=== PATIENT | female | born 1995 | race Two or more races ===

== ENCOUNTER 2023-02-21 14:00 | Emergency (ER) | payer OTHER, SELFPAY ==
[2023-02-21 14:16] VITALS: BP 113/77; BP 87/53; PULSE 66; RESP 18; TEMP 36.8; O2SAT 99; BMI 19.6
[2023-02-21] MEDS: Naloxone HCl Nasal 4 MG SPRAY NOSTRILALT ×2 (14:23→16:30)
[2023-02-21 15:15] LABS: MANUAL DIFF FLAG NO
[2023-02-21 15:17] LABS: Basophils Percent Auto 0.5 % (0-2); Eosinophils Absolute Auto 0.1 X10*3/uL (0.0-0.4); Hematocrit 33.6 % (37.0-47.0); Hemoglobin 11.1 g/dl (12.0-16.0); Imm Gran Abs Auto 0.02 X10*3/uL (0.00-0.03); Imm Gran Pct Auto 0.4 % (0.0-0.4); Lymphocytes Absolute Auto 1.7 X10*3/uL (1.2-4.9); Lymphocytes Percent Auto 30.5 % (20-40); Mean Corpuscular Hemoglobin 29.6 pg (27.0-33.0); Mean Corpuscular Volume 89.6 fL (80.0-98.0); Mean Platelet Volume 8.7 fL (9.4-12.3); Monocytes Absolute Auto 0.4 X10*3/uL (0.1-1.2); Monocytes Percent Auto 6.2 % (2-11); Neutrophils Absolute Auto 3.4 x10*3/uL (2.0-8.3); Neutrophils Percent Auto 60.4 % (45-73); Platelet Count 184 X10*3/uL (160-400); Red Blood Count 3.75 X10*6/uL (4.20-5.50); Red Cell Distribution Width 17.4 % (11.0-16.0); White Blood Count 5.6 X10*3/uL (4.8-10.8)
--- NOTE | 2023-02-21 15:25 | ED_ITS ---
HPI - General Adult General Chief complaint: ETOH/Substance Use Stated complaint: Lethargy, weakness, poor PO intake per EMS Time Seen by Provider: 02/21/23 14:05 Source: patient and EMS Mode of arrival: EMS History of Present Illness HPI narrative: 27-year-old female brought in by ambulance from [facility] for evaluation of hypotension, lethargy, and weakness. Patient was admitted to [facility] yesterday for alcohol detox, last drink 02/18. Patient denies any suicidal/homicidal ideation at this time. Patient does endorse that she drinks alcohol but is very drowsy. Related Data Allergies Allergy/AdvReac Type Severity Reaction Status Date / Time SEAFOOD Allergy Unknown UNK Uncoded 08/17/20 19:25 Review of Systems Review of Systems: Pertinent positives and negatives as stated in HPI PMF Past Medical History Source: nursing notes reviewed Social History Social History Alcohol intake: current Smoked in Last 30 Days: No Use of substances other than those prescribed or required for medical reasons: Unknown Advance Directives: No Advance Directives Information Provided: No Patient : No Physical Exam ED Vital Signs: Vital Signs - 24 hr 02/21/23 14:16 02/21/23 16:27 Temperature 98.3 F Pulse Rate 66 74 Respiratory Rate 18 18 Blood Pressure 87/53 L 100/67 Pulse Oximetry 99 99 Oxygen Delivery Method Room Air BMI result Body Mass Index 19.6 VITAL SIGNS: Reviewed. GENERAL: Well developed, well nourished, in no acute distress. HEAD: Normocephalic/atraumatic EYES: PERRLA, EOMI, of note, pupils are pinpoint EARS: Ext canals without abnormality, TMs non-bulging and non-erythematous NOSE: Nares patent bilateral OROPHARYNX: no oral lesions noted, posterior pharynx clear NECK: Supple, no adenopathy LUNGS: Normal breath sounds. No adventitious sounds or accessory muscle use. SpO2<99> CARDIOVASCULAR: Regular rate and rhythm without noted murmurs ABDOMEN: Soft, non-tender, non-distended with bowel sounds. MUSCULOSKELETAL: No tenderness, deformities, or effusions noted on gross inspection. EXTREMITIES: No cyanosis, clubbing or edema. SKIN: Inspection of the skin reveals no rashes NEUROLOGIC: Groggy and oriented x 3. Strength and sensation to light touch were grossly intact x 4. Medications Administered Discontinued Medications Generic Name Dose Route Start Last Admin Trade Name Fidencio PRN Reason Stop Dose Admin Sodium Chloride 1,000 mls @ 999 mls/hr 02/21/23 14:30 02/21/23 16:27 Ns IV 02/21/23 15:30 Infused .Q1H1M KATHY Infusion Sodium Chloride 1,000 mls @ 999 mls/hr 02/21/23 16:30 02/21/23 17:31 Ns IV 02/21/23 17:30 Infused .Q1H1M KATHY Infusion Naloxone HCl 4 mg 02/21/23 14:20 02/21/23 14:23 Naloxone Hcl Nasal 4 Mg Max NOSTRILALT 02/21/23 14:21 4 mg ONCE ONE Administration Naloxone HCl 4 mg 02/21/23 16:30 02/21/23 16:30 Naloxone Hcl Nasal 4 Mg Max NOSTRILALT 02/21/23 16:31 4 mg ONCE ONE Administration Medical Decision Making Medical Decision Making MDM Narrative: 27-year-old female and suspicion for heroin use, given 4 mg of Narcan intranasally with good response as patient became more alert. Basic labs to include acetaminophen and salicylate as well as toxicology have been ordered. Patient was hydrated with 2 L of IV fluids, labs, UA/U preg/toxicology have also been ordered. I have reviewed all investigations and it appears that patient has most likely been overmedicated on phenobarbital and/or benzodiazepine containing medication for her alcohol detox at [facility]. There is no evidence of acute infection, anemia, electrolyte abnormalities. The urinalysis was reviewed and felt to be contaminated. Patient will be observed here in the emergency room until she is more awake. Signed out to MAHAMED Vila Patient placed in physician observation because the patient needed more time for recovering from alcohol detox medications. At the time observation was started the patient's vital signs were stable, patient is alert and oriented, neuro: Nonfocal, CV RRR, lungs clear Differential Diagnosis Please see the discussion above Lab Data Please see the discussion above 02/21/23 15:09 02/21/23 15:09 Labs: Lab Results 02/21/23 02/21/23 02/21/23 Range/Units 15:09 15:09 15:09 WBC 5.6 (4.8-10.8) X10*3/uL RBC 3.75 L (4.20-5.50) X10*6/uL Hgb 11.1 L (12.0-16.0) g/dl Hct 33.6 L (37.0-47.0) % MCV 89.6 (80.0-98.0) fL MCH 29.6 (27.0-33.0) pg MCHC 33.0 (31.0-35.0) g/dl RDW 17.4 H (11.0-16.0) % Plt Count 184 (160-400) X10*3/uL MPV 8.7 L (9.4-12.3) fL Immature Gran % (Auto) 0.4 (0.0-0.4) % Neut % (Auto) 60.4 (45-73) % Lymph % (Auto) 30.5 (20-40) % [place] % (Auto) 6.2 (2-11) % Eos % (Auto) 2.0 (0-4) % Baso % (Auto) 0.5 (0-2) % Lymph # (Auto) 1.7 (1.2-4.9) X10*3/uL [place] # (Auto) 0.4 (0.1-1.2) X10*3/uL Eos # (Auto) 0.1 (0.0-0.4) X10*3/uL Baso # (Auto) 0.0 (0.0-0.2) X10*3/uL Abs Immat Gran (auto) 0.02 (0.00-0.03) X10*3/uL Absolute Neuts (auto) 3.4 (2.0-8.3) x10*3/uL Absolute Nucleated RBC 0.000 (0.0-0.012) X10*3/uL Nucleated RBC % (auto) 0.0 (0.0-0.2) /100WBC Sodium 138 (135-145) mmol/L Potassium 3.3 (3.3-5.1) mmol/L Chloride 104 (96-108) mmol/L Carbon Dioxide 27 (22-29) mmol/L Anion Gap 10 L (12-20) BUN 6 L (9-16) mg/dL Creatinine 0.61 (0.5-1.4) mg/dL Estim Creat Clear Calc 113.6 Estimated GFR > 60 Random Glucose 84 (60-115) mg/dL Calcium 7.5 L (8.4-10.2) mg/dL Total Bilirubin 0.5 (0.0-1.0) mg/dL AST 49 H (5-31) U/L ALT 37 H (0-31) U/L Alkaline Phosphatase 132 H (39-117) U/L Total Protein 5.3 L (6.5-8.0) g/dL Albumin 2.2 L (3.5-5.0) g/dL Urine Color Urine Appearance Urine pH (5.0-9.0) Ur Specific [place] (1.005-1.025) Urine Protein (Neg-Trace) mg/dL Urine Glucose (UA) (Negative) mg/dL Urine Ketones (Negative) mg/dL Urine Blood (Negative) Urine Nitrite (Negative) Ur Leukocyte Esterase (Negative) Urine RBC (0-2) /HPF Urine WBC (0-5) /HPF Ur Squamous Epith Cells (0-2) /HPF Urine Bacteria (None Seen) Hyaline Casts (0-2) /LPF Urine Test (NEGATIVE) Salicylates (15-30) mg/dL Urine Opiates Screen (Not Detect) Urine Fentanyl Screen (Not Detect) Acetaminophen (<30) mcg/mL Ur Barbiturates Screen (Not Detect) Ur Phencyclidine Scrn (Not Detect) Ur Amphetamines Screen (Not Detect) U Benzodiazepines Scrn (Not Detect) Urine Cocaine Screen (Not Detect) U Marijuana (THC) Screen (Not Detect) Ethyl Alcohol < 10 mg/dL COVID-19 (RACHEL) Negative (Negative) COVID-19 Clin Com See Note 02/21/23 02/21/23 02/21/23 Range/Units 15:09 17:46 17:46 WBC (4.8-10.8) X10*3/uL RBC (4.20-5.50) X10*6/uL Hgb (12.0-16.0) g/dl Hct (37.0-47.0) % MCV (80.0-98.0) fL MCH (27.0-33.0) pg MCHC (31.0-35.0) g/dl RDW (11.0-16.0) % Plt Count (160-400) X10*3/uL MPV (9.4-12.3) fL Immature Gran % (Auto) (0.0-0.4) % Neut % (Auto) (45-73) % Lymph % (Auto) (20-40) % [place] % (Auto) (2-11) % Eos % (Auto) (0-4) % Baso % (Auto) (0-2) % Lymph # (Auto) (1.2-4.9) X10*3/uL [place] # (Auto) (0.1-1.2) X10*3/uL Eos # (Auto) (0.0-0.4) X10*3/uL Baso # (Auto) (0.0-0.2) X10*3/uL Abs Immat Gran (auto) (0.00-0.03) X10*3/uL Absolute Neuts (auto) (2.0-8.3) x10*3/uL Absolute Nucleated RBC (0.0-0.012) X10*3/uL Nucleated RBC % (auto) (0.0-0.2) /100WBC Sodium (135-145) mmol/L Potassium (3.3-5.1) mmol/L Chloride (96-108) mmol/L Carbon Dioxide (22-29) mmol/L Anion Gap (12-20) BUN (9-16) mg/dL Creatinine (0.5-1.4) mg/dL Estim Creat Clear Calc Estimated GFR Random Glucose (60-115) mg/dL Calcium (8.4-10.2) mg/dL Total Bilirubin (0.0-1.0) mg/dL AST (5-31) U/L ALT (0-31) U/L Alkaline Phosphatase (39-117) U/L Total Protein (6.5-8.0) g/dL Albumin (3.5-5.0) g/dL Urine Color Yellow Urine Appearance Cloudy Urine pH 6.0 (5.0-9.0) Ur Specific [place] 1.010 (1.005-1.025) Urine Protein Negative (Neg-Trace) mg/dL Urine Glucose (UA) Negative (Negative) mg/dL Urine Ketones Negative (Negative) mg/dL Urine Blood Trace H (Negative) Urine Nitrite Negative (Negative) Ur Leukocyte Esterase Large (3+) H (Negative) Urine RBC 0-2 (0-2) /HPF Urine WBC >50 H (0-5) /HPF Ur Squamous Epith Cells 6-10 (0-2) /HPF Urine Bacteria 1+ (None Seen) Hyaline Casts 0-2 (0-2) /LPF Urine Test NEGATIVE (NEGATIVE) Salicylates < 5.0 L (15-30) mg/dL Urine Opiates Screen (Not Detect) Urine Fentanyl Screen (Not Detect) Acetaminophen < 17 (<30) mcg/mL Ur Barbiturates Screen (Not Detect) Ur Phencyclidine Scrn (Not Detect) Ur Amphetamines Screen (Not Detect) U Benzodiazepines Scrn (Not Detect) Urine Cocaine Screen (Not Detect) U Marijuana (THC) Screen (Not Detect) Ethyl Alcohol mg/dL COVID-19 (RACHEL) (Negative) COVID-19 Clin Com 02/21/23 Range/Units 17:46 WBC (4.8-10.8) X10*3/uL RBC (4.20-5.50) X10*6/uL Hgb (12.0-16.0) g/dl Hct (37.0-47.0) % MCV (80.0-98.0) fL MCH (27.0-33.0) pg MCHC (31.0-35.0) g/dl RDW (11.0-16.0) % Plt Count (160-400) X10*3/uL MPV (9.4-12.3) fL Immature Gran % (Auto) (0.0-0.4) % Neut % (Auto) (45-73) % Lymph % (Auto) (20-40) % [place] % (Auto) (2-11) % Eos % (Auto) (0-4) % Baso % (Auto) (0-2) % Lymph # (Auto) (1.2-4.9) X10*3/uL [place] # (Auto) (0.1-1.2) X10*3/uL Eos # (Auto) (0.0-0.4) X10*3/uL Baso # (Auto) (0.0-0.2) X10*3/uL Abs Immat Gran (auto) (0.00-0.03) X10*3/uL Absolute Neuts (auto) (2.0-8.3) x10*3/uL Absolute Nucleated RBC (0.0-0.012) X10*3/uL Nucleated RBC % (auto) (0.0-0.2) /100WBC Sodium (135-145) mmol/L Potassium (3.3-5.1) mmol/L Chloride (96-108) mmol/L Carbon Dioxide (22-29) mmol/L Anion Gap (12-20) BUN (9-16) mg/dL Creatinine (0.5-1.4) mg/dL Estim Creat Clear Calc Estimated GFR Random Glucose (60-115) mg/dL Calcium (8.4-10.2) mg/dL Total Bilirubin (0.0-1.0) mg/dL AST (5-31) U/L ALT (0-31) U/L Alkaline Phosphatase (39-117) U/L Total Protein (6.5-8.0) g/dL Albumin (3.5-5.0) g/dL Urine Color Urine Appearance Urine pH (5.0-9.0) Ur Specific [place] (1.005-1.025) Urine Protein (Neg-Trace) mg/dL Urine Glucose (UA) (Negative) mg/dL Urine Ketones (Negative) mg/dL Urine Blood (Negative) Urine Nitrite (Negative) Ur Leukocyte Esterase (Negative) Urine RBC (0-2) /HPF Urine WBC (0-5) /HPF Ur Squamous Epith Cells (0-2) /HPF Urine Bacteria (None Seen) Hyaline Casts (0-2) /LPF Urine Test (NEGATIVE) Salicylates (15-30) mg/dL Urine Opiates Screen Not Detected (Not Detect) Urine Fentanyl Screen Not Detected (Not Detect) Acetaminophen (<30) mcg/mL Ur Barbiturates Screen POSITIVE H (Not Detect) Ur Phencyclidine Scrn Not Detected (Not Detect) Ur Amphetamines Screen Not Detected (Not Detect) U Benzodiazepines Scrn POSITIVE H (Not Detect) Urine Cocaine Screen Not Detected (Not Detect) U Marijuana (THC) Screen Not Detected (Not Detect) Ethyl Alcohol mg/dL COVID-19 (RACHEL) (Negative) COVID-19 Clin Com Discharge Plan Discharge Clinical Impression: Lethargic Patient Disposition: Still a Patient Interventions: Hernando-Suicide Risk Severity Scale Last Done: 02/21/23 15:34
[2023-02-21] MEDS: 0.9 % Sodium Chloride 1,000 ML 999 ML IV ×2 (15:26→16:30)
[2023-02-21 15:37] LABS: Alanine Aminotransferase 37 U/L (0-31); Albumin Level 2.2 g/dL (3.5-5.0); Alkaline Phosphatase 132 U/L (39-117); Anion Gap 10 (12-20); Aspartate Amino Transferase 49 U/L (5-31); Bilirubin Total 0.5 mg/dL (0.0-1.0); Blood Urea Nitrogen 6 mg/dL (9-16); COVID-19 Test Negative (Negative); Calcium 7.5 mg/dL (8.4-10.2); Carbon Dioxide 27 mmol/L (22-29); Chloride 104 mmol/L (96-108); Creatinine Clr Calc Pharmacy 113.6; Estimated Glomerular Filt Rate > 60; Glucose Random 84 mg/dL (60-115); IDNOW Serial# 08D9AD1C; Potassium 3.3 mmol/L (3.3-5.1); Sodium 138 mmol/L (135-145); Total Protein 5.3 g/dL (6.5-8.0)
[2023-02-21 15:40] LABS: Acetaminophen LAB < 17 mcg/mL (<30); Salicylate < 5.0 mg/dL (15-30)
[2023-02-21 16:05] LABS: Ethanol < 10 mg/dL
[2023-02-21 16:27] VITALS: BP 100/67; PULSE 74; RESP 18; O2SAT 99
[2023-02-21 17:56] LABS: Appearance Urine Cloudy; Color Urine Yellow; Glucose Urine UA Negative (Negative); Leukocyte Esterase Urine Large (3+) (Negative); Nitrite Urine Negative (Negative); UMIC TRIGGER UACC YES; Urine Blood Trace (Negative); Urine Ketones Negative (Negative); Urine Protein Negative (Neg-Trace)
[2023-02-21 17:58] LABS: UPreg QC Valid YES; Urine Pregnancy NEGATIVE (NEGATIVE)
[2023-02-21 18:08] LABS: Amphetamine Screen Urine Not Detected (Not Detect); Barbiturates, Urine POSITIVE (Not Detect); Benzodiazepines Screen Urine POSITIVE (Not Detect); Cannabinoid Screen Urine Not Detected (Not Detect); Cocaine Screen Urine Not Detected (Not Detect); Fentanyl, urine Not Detected (Not Detect); Opiate Screen Urine Not Detected (Not Detect); Phencyclidine Screen Urine Not Detected (Not Detect)
[2023-02-21 18:12] LABS: Bacteria Urine 1+ (None Seen); Hyaline Casts Urine 0-2 /LPF (0-2); RBC Urine 0-2 /HPF (0-2); UACC Culture Trigger YES; WBC Urine >50 /HPF (0-5)
--- NOTE | 2023-02-21 18:58 | PC.NURSE ---
[facility]
--- NOTE | 2023-02-21 20:11 | PC.NURSE ---
Report to Nesha CHERRY at [facility]. Made aware that pt is coming back via ambulance.
[2023-02-21 20:41] VITALS: BP 102/69; PULSE 82; RESP 16; TEMP 36.6; O2SAT 98
== END 2023-02-21 20:42 | disposition home or self-care (01) ==
PROVIDERS: Emergency Provider Student in an Organized Health Care Education/Training Program
DX: R53.83 Other fatigue (principal); F15.90 Other stimulant use, unspecified, uncomplicated; Z20.822 Contact with and (suspected) exposure to COVID-19; Z20.828 Contact with and (suspected) exposure to other viral communicable diseases; Z79.899 Other long term (current) drug therapy
CPT/HCPCS: 36415; 80053; 80143; 80179; 80307; 81001; 81025; 82077; 85025; 87086; 87635; 96360; 96361; 99284; 99285

== ENCOUNTER 2023-03-02 13:25 | Emergency (ER) | payer OTHER, SELFPAY ==
--- NOTE | 2023-03-02 13:42 | ED_ITS ---
HPI - General Adult General Chief complaint: Medical Clearance Stated complaint: medical clearance Time Seen by Provider: 03/02/23 13:35 Source: patient and family Mode of arrival: ambulatory Limitations: no limitations History of Present Illness HPI narrative: This is a 27 years old with history of alcohol abuse presented today stating that she has of bed detox ([facility] [place]) but she needs a note to that she medic ally stable for the detox. She states that she does need blood work she states that she does not need psych evaluation. She states that she she has been to detox before February 20 she was discharged a week ago and they are willing to take her back.She is here with father. Onset (ago): day(s) (1) Radiation: non-radiation Severity: mild Related Data Allergies Allergy/AdvReac Type Severity Reaction Status Date / Time SEAFOOD Allergy Unknown UNK Uncoded 03/02/23 13:43 Review of Systems Constitutional: Constitutional: Reports no additional constitutional compla ints Cardiovascular: Cardiovascular: Reports no additional cardiovascular complaints Gastrointestinal: Gastrointestinal: Reports no additional gastrointestinal complaints Musculoskeletal: Musculoskeletal: Reports no additional musculoskeletal complaints [facility] Past Medical History [facility] Narrative: Alcohol abuse/pancreatitis/anxiety Social History Social History Alcohol intake: current Advance Directives: No Advance Directives Information Provided: No Physical Exam ED Vital Signs: Vital Signs - 24 hr 03/02/23 13:43 Temperature 98.4 F Pulse Rate 100 Respiratory Rate 16 Blood Pressure 109/80 Pulse Oximetry 98 Oxygen Delivery Method Room Air BMI result Body Mass Index 17.8 Const General: cooperative, no acute distress, alert, awake and Physically active Nutritional Appearance: underweight Orientation/consciousness: patient oriented x3 HENMT Head: Yes normal to inspection Face and sinus: Yes normal facial exam Mouth: Normal oral and palatal mucosa present Throat: Yes posterior oropharynx normal Neck Neck: Yes normal visual inspection Chest Chest palpation & inspection: normal inspection of the chest Resp Effort & Inspection: normal respiratory effort Auscultation: clear to auscultation bilaterally Cardio Jugular venous distension: no JVD Rate: regular rate Rhythm: regular rhythm GI Inspection: Yes normal to inspection Palpation (GI): Soft to palpation Auscultation: normal bowel sounds Neuro General: patient oriented x3 Course Reevaluation(s) Reevaluation #1: I was told by the RN that the pt eloped before care team eval, she was not suicidal,she was here with father Time: 14:50 Medical Decision Making Medical Decision Making MDM Narrative: pt presented requesting medical clearance vital sign are stable refuses labs,will consult care team Differential Diagnosis Differential Diagnoses: The differential diagnosis associated with the presentation includes alcoholism/liver disease Discharge Plan Discharge Clinical Impression: Alcoholism Patient Disposition: Elopement
[2023-03-02 13:43] VITALS: BP 109/80; PULSE 100; RESP 16; TEMP 36.9; O2SAT 98; BMI 17.8
--- NOTE | 2023-03-02 15:09 | MHC.RECOVRN ---
Attempted to meet with pt in [place]. Pts father in room, reports pt went to car. Pt called father, declined to come back to ED. Provider aware.
== END 2023-03-02 15:15 | disposition left against medical advice (07) ==
PROVIDERS: Emergency Provider Emergency Medicine
DX: F10.20 Alcohol dependence, uncomplicated (principal); Y90.9 Presence of alcohol in blood, level not specified
CPT/HCPCS: 99282

== ENCOUNTER 2023-03-03 11:06 | Emergency (ER) | payer OTHER, SELFPAY ==
[2023-03-03 11:09] VITALS: BP 112/79; PULSE 115; RESP 19; TEMP 36.6; O2SAT 99; BMI 17.2
--- OUTSIDE RECORDS SUMMARY | 2023-03-03 11:24 | XMS_ITS | Continuity of Care Document ---
Author Name Unknown Organization [facility] Address [address] [place] [id number]- Care Team Providers Care Physical Therapy Technician Name Role Phone Not on Staff, PCP Primary Care Physician Unavail able Encounter [facility] Date(s): 02/01/20 - 03/30/20 [facility] [address] [phone]- [facility] Attending Physician: Lilly Thomas CNM Admitting Physician: Lilly Thomas CNM Allergies, Adverse Reactions, Alerts Substance Reaction Severity Status Seafood Active Immunizations Given and Recorded Vaccine Date Status Refusal Reason tetanus/diphtheria/pertussis, acel(Tdap) 02/01/20 Given Medications Colace sodium 100 mg oral capsule 100 mg, 1, capsule, By Mouth, 2 times a day, PRN, # 60 capsule, Refills 1, Tot. Refills 1, Maintenance, for constipation, 12/24/19 9:43:00 EST, Route to Pharmacy Electronically, [facility]/pharmacy #[id number], 163, cm, 12/24/19 9:24:00 EST, Height, 78.4, kg, 07/0... Start Date: 12/24/19 Status: Ordered Ensure Plus Ensure Plus, See Instructions, # 90 each, Refills 2, Tot. Refills 2, Maintenance, Ensure Plus 3x/day during for poor weight gain, 02/01/20 13:13:00 EST, Supply Start Date: 02/01/20 Status: Ordered ferrous sulfate 325 mg oral tablet 1 tablet = 325 mg, By Mouth, 2 times a day, # 60 tablet, 2 Refills, Maintenance, 02/15/20 12:09:00 EDT, Tablet, [facility]/pharmacy #[id number], 163, cm, 02/15/20 8:51:00 EDT, Height, 71.9, kg, 01/30/20 18:33:00 EST, Dry Weight Start Date: 02/15/20 Status: Ordered Fioricet oral capsule 2 capsule, By Mouth, Every 6 hours, PRN as needed, not to exceed 6 capsules/day, # 20 capsule, 0 Refills, Maintenance, 03/23/20 16:49:00 EDT, Capsule, [facility]/pharmacy #[id number], 2 capsule By Mouth Every 6 hours,PRN:as needed,Instr:not to exceed 6 capsules/da... Start Date: 03/23/20 Status: Ordered MiraLax oral powder for reconstitution = 17 Gm, By Mouth, 3 times a day, PRN Constipation, dissolve in water before taking, # 527 Gm, 0 Refills, Maintenance, 12/24/19 9:43:00 EST, REC Powder, [facility]/pharmacy #[id number], 17 Gm By Mouth 3 times a day,PRN:Constipation,Instr:dissolve in water before t... Start Date: 12/24/19 Status: Ordered Natachew Multivitamins oral tablet, chewable 1 tablet, Chew, Daily, # 30 tablet, 11 Refills, Maintenance, 12/24/19 9:46:00 EST, Chew Tablet, [facility]/pharmacy #[id number], any gummy or chewable substitution is fine, 1 tablet Chew Daily, 163, cm, 12/24/19 9:24:00 EST, Height, 78.4, kg, 06/08/19 12:... Start Date: 12/24/19 Status: Ordered Valtrex 500 mg oral tablet 500 mg, 1, tablet, By Mouth, 2 times a day, for 30 days, # 60 tablet, Refills 2, Tot. Refills 2, Acute 05/15/20 9:03:00 EDT, 02/15/20 9:03:00 EDT, Route to Pharmacy Electronically, [facility]/pharmacy #[id number], 163, cm, 02/15/20 8:51:00 EDT, Height, 71.9, kg, 0... Start Date: 02/15/20 Stop Date: 05/15/20 Status: Ordered Valtrex 500 mg oral tablet 500 mg, 1, tablet, By Mouth, 2 times a day, for 30 days, # 60 tablet, Refills 2, Tot. Refills 2, Acute 08/13/20 9:03:00 EDT, 05/15/20 9:03:00 EDT, [id number] 163, cm, 03/14/20 9:02:00 EDT, Height, 72.2, kg, 0... Start Date: 05/15/20 Stop Date: 08/13/20 Status: Ordered Zofran 4 mg oral tablet 1 tablet = 4 mg, By Mouth, Every 6 hours, PRN Nausea & Vomiting, # 30 tablet, 0 Refills, Maintenance, 03/09/20 7:47:00 EDT, Tablet, [facility]/pharmacy #[id number], 163, cm, 02/15/20 8:51:00 EDT, Height, 72.2, kg, 03/02/20 9:07:00 EDT, Dry Weight Start Date: 03/09/20 Status: Ordered Problem List Condition Effective Dates Status Health Status Inform ant Elevated glucose tolerance test(Confirmed) Active Anemia during (Confirmed) Active Anxiety(Confirmed) Active Constipation during (Confirmed) Active Marijuana use(Confirmed) Active Genital herpes simplex virus (HSV) infection in mother affecting (Confirmed) Active History of depression(Confirmed) Active History of delivery(Confirmed) Active History of influenza(Confirmed) Active Flu --Declined vaccine(Confirmed) Active Poor weight gain of (Confirmed) Active Nausea/vomiting in (Confirmed) Active Current smoker(Confirmed) Active Social History Social History Type Response Tobacco Use: 4 or less cigar ettes(less than 1/4 pack)/day in last 30 days. Sex
--- OUTSIDE RECORDS SUMMARY | 2023-03-03 11:24 | XMS_ITS | Continuity of Care Document ---
Author Name Unknown Organization [facility] Address [address] [place] [id number]- Care Team Providers Care Supervisor Residential Name Role Phone Not on Staff, PCP Primary Care Physician Unavail able Encounter [facility] Date(s): 04/04/20 - 04/11/[address] [address]- [facility] Attending Physician: January Sutherland MD Admitting Physician: Lilly Thomas CNM Referring Physician: Brittny Jara MD Allergies, Adverse Reactions, Alerts Substance Reaction Severity Status Seafood Active Immunizations Given and Recorded Vaccine Date Status Refusal Reason tetanus/diphtheria/pertussis, acel(Tdap) 02/01/20 Given Medications acetaminophen 325 mg oral tablet 650 mg, By Mouth, Every 4 hours, PRN, not to exceed 4000 mg/day, # 90 tablet, Refills 1, Tot. Refills 1, Maintenance, Pain , Mild, 04/08/20 7:44:00 EDT, Route to Pharmacy Electronically, [facility]/pharmacy#[id number], 160, cm, 04/08/20 0:23:00 EDT, Height, 68.5,... Start Date: 04/08/20 Status: Ordered Colace sodium 100 mg oral capsule 100 mg, 1, capsule, By Mouth, 2 times a day, PRN, # 60 capsule, Refills 1, Tot. Refills 1, Maintenance, for constipation, 04/08/20 7:44:00 EDT, Route to Pharmacy Electronically, [facility]/pharmacy #[id number], 160, cm, 04/08/20 0:23:00 EDT, Height, 68.5, kg, 05/0... Start Date: 04/08/20 Status: Ordered Ensure Plus Ensure Plus, See Instructions, # 90 each, Refills 2, Tot. Refills 2, Maintenance, Ensure Plus 3x/day during for poor weight gain, 02/01/20 13:13:00 EST, Supply Start Date: 02/01/20 Status: Ordered ferrous sulfate 325 mg oral tablet 1 tablet = 325 mg, By Mouth, 2 times a day, # 60 tablet, 2 Refills, Maintenance, 02/15/20 12:09:00 EDT, Tablet, [facility]/pharmacy #[id number], 163, cm, 02/15/20 8:51:00 EDT, Height, 71.9, kg, 01/30/20 18:33:00 EST, Dry Weight Start Date: 02/15/20 Status: Ordered Fioricet oral capsule 2 capsule, By Mouth, Every 6 hours, PRN as needed, not to exceed 6 capsules/day, # 20 capsule, 0 Refills, Maintenance, 03/23/20 16:49:00 EDT, Capsule, [facility]/pharmacy #[id number], 2 capsule By Mouth Every 6 hours,PRN:as needed,Instr:not to exceed 6 capsules/da... Start Date: 03/23/20 Status: Ordered ibuprofen 800 mg oral tablet 800 mg, 1, tablet, By Mouth, Every 8 hours, PRN, not to exceed 3200 mg/day with food or milk, # 90 tablet, Refills 1, Tot. Refills 1, Maintenance, Pain , Moderate, 04/08/20 7:45:00 EDT, Route to Pharmacy Electronically, [facility]/pharmacy #[id number], 160, cm, 0... Start Date: 04/08/20 Status: Ordered MiraLax oral powder for reconstitution = 17 Gm, By Mouth, 3 times a day, PRN Constipation, dissolve in water before taking, # 527 Gm, 0 Refills, Maintenance, 12/24/19 9:43:00 EST, REC Powder, [facility]/pharmacy #[id number], 17 Gm By Mouth 3 times a day,PRN:Constipation,Instr:dissolve in water before t... Start Date: 12/24/19 Status: Ordered Natachew Multivitamins oral tablet, chewable 1 tablet, Chew, Daily, # 30 tablet, 11 Refills, Maintenance, 12/24/19 9:46:00 EST, Chew Tablet, [id number], any gummy or chewable substitution is [...] 02/15/20 9:03:00 EDT, Route to Pharmacy Electronically, [facility]/pharmacy #[id number], 163, cm, 02/15/20 8:51:00 EDT, Height, 71.9, kg, 0... Start Date: 02/15/20 Stop Date: 05/15/20 Status: Ordered Valtrex 500 mg oral tablet 500 mg, 1, tablet, By Mouth, 2 times a day, for 30 days, # 60 tablet, Refills 2, Tot. Refills 2, Acute 08/13/20 9:03:00 EDT, 05/15/20 9:03:00 EDT, Route to Pharmacy Electronically, [facility]/pharmacy #[id number], 163, cm, 03/14/20 9:02:00 EDT, Height, 72.2, kg, 0... Start Date: 05/15/20 Stop Date: 08/13/20 Status: Ordered Zofran 4 mg oral tablet 1 tablet = 4 mg, By Mouth, Every 6 hours, PRN Nausea & Vomiting, # 30 tablet, 0 Refills, Maintenance, 03/09/20 7:47:00 EDT, Tablet, [facility]/pharmacy #[id number], 163, cm, 02/15/20 8:51:00 EDT, Height, [...] Nausea/vomiting in (Confirmed) Active Current smoker(Confirmed) Active Vital Signs Most recent to oldest [Reference Range]: 1 Height 163 cm (04/04/20 8:40 AM) Social History Social History Type Response Tobacco Use: 4 or less cigar ettes(less than 1/4 pack)/day in last 30 days. Sex
--- OUTSIDE RECORDS SUMMARY | 2023-03-03 11:24 | XMS_ITS | Continuity of Care Document ---
Author Name Unknown Organization [facility] Address [address] [place] [address]- Care Team Providers Care Shank Burnisher Name Role Phone Not on Staff, PCP Primary Care Physician Unavail able Encounter [facility] [place] Date(s): 06/14/20 - 06/21/20 [facility] [address] [place] [address]- [facility] Encounter Diagnosis Headache(Discharge Diagnosis) - 06/14/20 Cough(Discharge Diagnosis) - 06/14/20 Attending Physician: Matthew BLACKBURN, Alhaji Duvall Allergies, Adverse Reactions, Alerts Substance Reaction Severity Status Seafood Active Immunizations Given and Recorded Vaccine Date Status Refusal Reason tetanus/diphtheria/pertussis, acel(Tdap) 02/01/20 Given Medications acetaminophen 325 mg oral tablet 650 mg, By Mouth, Every 4 hours, PRN, not to exceed 4000 mg/day, # 90 tablet, Refills 1, Tot. Refills 1, Maintenance, Pain , Mild, 04/08/20 7:44:00 EDT, Route to Pharmacy Electronically, [facility]/pharmacy#[id number], 160, cm, 04/08/20 0:23:00 EDT, Height, 68.5,... Start Date: 04/08/20 Status: Ordered Colace sodium 100 mg oral capsule 100 mg, 1, capsule, By Mouth, 2 times a day, PRN, # 60 capsule, Refills 1, Tot. Refills 1, Maintenance, for constipation, 04/08/20 7:44:00 EDT, Route to Pharmacy Electronically, [facility]/pharmacy #[id number], 160, cm, 04/08/20 0:23:00 EDT, Height, 68.5, kg, 05/0... Start Date: 04/08/20 Status: Ordered Magdalena 30 mg oral tablet 1 tablet = 30 mg, By Mouth, Once, # 1 tablet, 1 Refills, Soft Stop, 05/05/20 17:56:00 EDT, Tablet, [id number], 160, cm, 04/08/20 10:42:00 EDT, Height, 68.5, kg, 04/06/20 21:05:00 EDT, Dry Weight Start Date: 05/05/20 Status: Ordered Ensure Plus Ensure Plus, See Instructions, # 90 each, Refills 2, Tot. Refills 2, Maintenance, Ensure Plus 3x/day during for poor weight gain, 02/01/20 13:13:00 EST, Supply Start Date: 02/01/20 Status: Ordered ferrous sulfate 325 mg oral tablet 1 tablet = 325 mg, By Mouth, 2 times a day, # 60 tablet, 2 Refills, Maintenance, 02/15/20 12:09:00 EDT, Tablet, [facility]/pharmacy #[id number], 163, cm, 02/15/20 8:51:00 EDT, Height, 71.9, kg, 01/30/20 18:33:00 EST, Dry Weight Start Date: 02/15/20 Status: Ordered Fioricet oral capsule 2 capsule, By Mouth, Every 6 hours, PRN as needed, not to exceed 6 capsules/day, # 20 capsule, 0 Refills, Maintenance, 03/23/20 16:49:00 EDT, Capsule, [id number], 2 capsule By Mouth Every 6 hours,PRN:as needed,Instr:not to exceed 6 capsules/da... Start Date: 03/23/20 Status: Ordered ibuprofen 800 mg oral tablet 800 mg, 1, tablet, By Mouth, Every 8 hours, PRN, not to exceed 3200 mg/day with food or milk, # 90 tablet, Refills 1, Tot. Refills 1, Maintenance, Pain , Moderate, 04/08/20 7:45:00 EDT, Route to Pharmacy Electronically, [id number], 160, cm, 0... Start Date: 04/08/20 [...] Refills, Maintenance, 12/24/19 9:46:00 EST, Chew Tablet, [facility]/pharmacy #[id number], any gummy or chewable substitution is fine, 1 tablet Chew Daily, 163, cm, 12/24/19 9:24:00 EST, Height, 78.4, kg, 06/08/19 12:... Start Date: 12/24/19 Status: Ordered ProAir HFA 90 mcg/inh inhalation aerosol with adapter 2, puffs, Inhalation, Every 4 hours, PRN, # 8.5 Gm, Refills 1, Tot. Refills 1, Maintenance, 06/14/20 14:35:00 EDT, Aerosol, Route to Pharmacy Electronically, [id number], [facility]/pharmacy #[id number], 160, cm, 05/24/20 17:54:00 EDT, Hei... Start Date: 06/14/20 Status: Ordered Valtrex 500 mg oral tablet 500 mg, 1, tablet, By Mouth, 2 times a day, for 30 days, # 60 tablet, Refills 2, Tot. Refills 2, Acute 08/13/20 9:03:00 EDT, 05/15/20 9:03:00 EDT, Route to Pharmacy Electronically, [facility]/pharmacy #[id number], 163, cm, 03/14/20 9:02:00 EDT, Height, 72.2, kg, 0... Start Date: 05/15/20 Stop Date: 08/13/20 Status: Ordered Zofran 4 mg oral tablet 1 tablet = 4 mg, By Mouth, Every 6 hours, PRN Nausea & Vomiting, # 30 tablet, 0 Refills, Maintenance, 03/09/20 7:47:00 EDT, Tablet, [facility]/pharmacy #[id number], 163, cm, 02/15/20 8:51:00 EDT, Height, [...] Nausea/vomiting in (Confirmed) Active Current smoker(Confirmed) Active Diagnosis Diagnosis Type Effective Dates Health Status Clini jose roberto Service Informant Headache Discharge Diagnosis 06/14/20 Cough Discharge Diagnosis 06/14/20 Social History Social History Type Response Tobacco Use: 4 or less cigar ettes(less than 1/4 pack)/day in last 30 days. Sex
--- OUTSIDE RECORDS SUMMARY | 2023-03-03 11:24 | XMS_ITS | Continuity of Care Document ---
Author Name Unknown Organization [facility] ter Address [address] [place] [address]- Care Team Providers Care Mononitrotoluene Operator Name Role Phone Not on Staff, PCP Primary Care Physician Unavail able Encounter [facility] [place] Date(s): 03/01/22 - 03/01/[address] [address]- Encounter Diagnosis Depression(Final) - 03/01/22 Pancreatitis(Final) - 03/01/22 Alcohol use(Final) - 03/01/22 Discharge Disposition: A-D/C Home Attending Physician: Oscar Hardin MD Admitting Physician: Oscar Hardin MD Referring Physician: Not on Staff, Referring MD Allergies, Adverse Reactions, Alerts Substance Reaction Severity Status Seafood Active Immunizations Given and Recorded Vaccine Date Status Refusal Reason influenza virus vaccine, inactivated 12/01/21 Give n tetanus/diphtheria/pertussis, acel(Tdap) 02/01/20 Given Medications acamprosate 333 mg oral delayed release tablet = 666 mg, By Mouth, 3 times a day with meals, # 180 tablet, 1 Refills, Maintenance, 12/05/21 10:58:00 EST, Tablet, [id number], Partial fill upon patient request if the prescription is for a schedule II opioid drug., hakeem May, 12/04/21 14:52:00... Start Date: 12/05/21 Status: Ordered Bela 0.35 mg oral tablet 1 tablet = 0.35 mg, By Mouth, Daily, # 28 tablet, 12 Refills, Maintenance, 12/05/21 13:10:00 EST, Tablet, [id number], Partial fill upon patient request if the prescription is for a schedule II opioid drug., 163, cm, 12/05/21 12:52:00 EST, Heig... Start Date: 12/05/21 Status: Ordered Ensure Plus Ensure Plus, See Instructions, # 90 each, Refills 2, Tot. Refills 2, Maintenance, Ensure Plus 3x/day during for poor weight gain, 02/01/20 13:13:00 EST, Supply Start Date: 02/01/20 Status: Ordered folic acid 1 mg oral tablet 1 mg, 1, tablet, By Mouth, Daily, # 30 tablet, Refills 0, Tot. Refills 0, Maintenance, 12/05/21 10:58:00 EST, Route to Pharmacy Electronically, [facility]/pharmacy #[id number], Partial fill upon patient request if the prescription is for a schedule II opioid drug.... Start Date: 12/05/21 Status: Ordered Natachew Multivitamins oral tablet, chewable 1 tablet, Chew, Daily, # 30 tablet, 11 Refills, Maintenance, 12/24/19 9:46:00 EST, Chew Tablet, [facility]/pharmacy #[id number], any gummy or chewable substitution is fine, 1 tablet Chew Daily, 163, cm, 12/24/19 9:24:00 EST, Height, 78.4, kg, 06/08/19 12:... Start Date: 12/24/19 Status: Ordered pantoprazole 40 mg oral delayed release tablet = 40 mg, By Mouth, 2 times a day, # 60 tablet, 0 Refills, Maintenance, 02/05/22 9:07:00 EST, EC Tablet, 162, cm, 02/01/22 17:02:00 EST, Height, 56.3, kg, 02/01/22 17:02:00 EST, Dry Weight Start Date: 02/05/22 Stop Date: 03/07/22 Status: Ordered ProAir HFA 90 mcg/inh inhalation aerosol with adapter 2, puffs, Inhalation, Every 4 hours, PRN, # 8.5 Gm, Refills 1, Tot. Refills 1, Maintenance, 06/14/20 14:35:00 EDT, Aerosol, Route to Pharmacy Electronically, [id number], [facility]/pharmacy #[id number], 160, cm, 05/24/20 17:54:00 EDT, Hei... Start Date: 06/14/20 Status: Ordered sucralfate 1 gm oral tablet 1 Gm, 1, tablet, By Mouth, 3 times a day before meals and bedtime, # 120 tablet, Refills 0, Tot. Refills 0, Maintenance, 02/05/22 9:07:00 EST, Route to Pharmacy Electronically, [facility], Partial fill upon patient request if the prescri... Start Date: 02/05/22 Status: Ordered thiamine 100 mg oral tablet 100 mg, 1, tablet, By Mouth, 2 times a day, # 60 tablet, Refills 0, Tot. Refills 0, Maintenance, 12/05/21 10:58:00 EST, Route to Pharmacy Electronically, [facility]/pharmacy #[id number], Partial fill upon patientrequest if the prescription is for a schedule II op... Start Date: 12/05/21 Status: Ordered Problem List Condition Effective Dates Status Health Status Inform ant Anxiety(Confirmed) Active Marijuana use(Confirmed) Active Genital herpes simplex virus (HSV) infection in mother affecting (Confirmed) Active History of depression(Confirmed) Active History of delivery(Confirmed) Active History of influenza(Confirmed) Active Flu --Declined vaccine(Confirmed) Active Current smoker(Confirmed) Active Vital Signs Most recent to oldest [Reference Range]: 1 2 3 Oxygen Saturation [94-100 %] 99 % (03/01/22 8:02 PM) 100 % (03/01/22 6:36 PM) 100 % (03/01/22 12:56 PM) Pulse Rate [55-90 bpm] 96 bpm *H* (03/01/22 8:02 PM) 102 bpm *H* (03/01/22 6:36 PM) 105 bpm *H* (03/01/22 1:30 PM) Blood Pressure [90-138/55-84 mm Hg] 125/65mm Hg (03/01/22 8:02 PM) 120/72mm Hg (03/01/22 6:36 PM) 143/92mm Hg *H* (03/01/22 12:56 PM) Respiratory Rate [16-30 br/min] 18 br/min (03/01/22 8:02 PM) 20 br/min (03/01/22 6:36 PM) 22 br/min (03/01/22 1:30 PM) Temperature [96.8-100.4 DegF] 98.2 DegF (03/01/22 8:02 PM) 98.9 DegF (03/01/22 6:36 PM) 98.6 DegF (03/01/22 12:56 PM) Mode of Delivery (Oxygen) Room air (03/01/22 8:02 PM) Blood pressure sites Arm, left (03/01/22 8:02 PM) Temperature Route Oral (03/01/22 8:02 PM) Oral (03/01/22 6:36 PM) Oral (03/01/22 12:56 PM) Social History Social History Type Response Smoking Status 5-9 cigarettes (betw een 1/4 to 1/2 pack)/day in last 30 days entered on: 03/27/21 Sex
--- OUTSIDE RECORDS SUMMARY | 2023-03-03 11:24 | XMS_ITS | Continuity of Care Document ---
Author Name Unknown Organization [facility] Address [address] [place] [address]- Care Team Providers Care Eligibility And Occupancy Interviewer Name Role Phone Not on Staff, PCP Primary Care Physician Unavail able Encounter [facility] [place] Date(s): 08/10/20 - 08/17/20 [facility] [address] [place] [address]- [facility] Attending Physician: Keo Cain MD Referring Physician: Matthew BLACKBURN, Alhaji Duvall Allergies, Adverse [...] 04/08/20 7:44:00 EDT, Route to Pharmacy Electronically, [facility]/pharmacy#[id number], 160, cm, 04/08/20 0:23:00 EDT, Height, 68.5,... Start Date: 04/08/20 Status: Ordered Colace sodium 100 mg oral capsule 100 mg, 1, capsule, By Mouth, 2 times a day, PRN, # 60 capsule, Refills 1, Tot. Refills 1, Maintenance, for constipation, 04/08/20 7:44:00 EDT, Route to Pharmacy Electronically, [facility]/pharmacy #[id number], 160, cm, 04/08/20 0:23:00 EDT, Height, 68.5, kg, 05/0... Start Date: 04/08/20 Status: Ordered Diflucan 150 mg oral tablet = 150 mg, By Mouth, Every 48 hours, # 2 capsule, 0 Refills, Maintenance, 08/11/20 16:09:00 EDT, [facility]/pharmacy #[id number], 160, cm, 08/10/20 15:49:00 EDT, Height, 68.5, kg, 04/06/20 21:05:00 EDT, Dry Weight Start Date: 08/11/20 Status: Ordered Magdalena 30 mg oral tablet 1 tablet = 30 mg, By Mouth, Once, # 1 tablet, 1 Refills, Soft Stop, 05/05/20 17:56:00 EDT, Tablet, [facility]/pharmacy #[id number], 160, cm, 04/08/20 10:42:00 EDT, Height, [...] 2 Refills, Maintenance, 02/15/20 12:09:00 EDT, Tablet, [facility]/pharmacy #[id number], 163, cm, 02/15/20 8:51:00 EDT, Height, 71.9, kg, 01/30/20 18:33:00 EST, Dry Weight Start Date: 02/15/20 Status: Ordered Fioricet oral capsule 2 capsule, By Mouth, Every 6 hours, PRN as needed, not to exceed 6 capsules/day, # 20 capsule, 0 Refills, Maintenance, 03/23/20 16:49:00 EDT, Capsule, [facility]/pharmacy #[id number], 2 capsule By Mouth Every 6 hours,PRN:as needed,Instr:not to exceed 6 capsules/da... Start Date: 03/23/20 Status: Ordered ibuprofen 800 mg oral tablet 800 mg, 1, tablet, By Mouth, Every 8 hours, PRN, not to exceed 3200 mg/day with food or milk, # 90 tablet, Refills 1, Tot. Refills 1, Maintenance, Pain , Moderate, 04/08/20 7:45:00 EDT, Route to Pharmacy Electronically, [facility]/pharmacy #[id number], 160, cm, 0... Start Date: 04/08/20 Status: Ordered metroNIDAZOLE 0.75% topical gel 1 application, Vaginally, 2 times a day, # 45 Gm, 0 Refills, Maintenance, 08/10/20 16:16:00 EDT, [facility]/pharmacy #[id number], 1 application Vaginally 2 times a day,x5 days, 160, cm, 08/10/20 15:49:00 EDT, Height, 68.5, kg, 04/06/20 21:05:00 EDT, Dry Weight Start Date: 08/10/20 Stop Date: 08/15/20 Status: Ordered MiraLax oral powder for reconstitution = 17 Gm, By Mouth, 3 times a day, PRN Constipation, dissolve in water before taking, # 527 Gm, 0 Refills, Maintenance, 12/24/19 9:43:00 EST, REC Powder, [facility]/pharmacy #[id number], 17 Gm By Mouth 3 times a day,PRN:Constipation,Instr:dissolve in water before t... Start Date: 12/24/19 Status: Ordered Natachew Multivitamins oral tablet, chewable 1 tablet, Chew, Daily, # 30 tablet, 11 Refills, Maintenance, 12/24/19 9:46:00 EST, Chew Tablet, [facility]/pharmacy #[id number], any gummy or chewable substitution is fine, 1 tablet Chew Daily, 163, cm, 12/24/19 9:24:00 EST, Height, 78.4, kg, 06/08/19 12:... Start Date: 12/24/19 Status: Ordered ProAir HFA 90 mcg/inh inhalation aerosol with adapter 2, puffs, Inhalation, Every 4 hours, PRN, # 8.5 Gm, Refills 1, Tot. Refills 1, Maintenance, 06/14/20 14:35:00 EDT, Aerosol, Route to Pharmacy Electronically, [id number], [facility]/pharmacy #[id number], 160, cm, 05/24/20 17:54:00 EDT, Hei... Start Date: 06/14/20 Status: Ordered Zofran 4 mg oral tablet 1 tablet = 4 mg, By Mouth, Every 6 hours, PRN Nausea & Vomiting, # 30 tablet, 0 Refills, Maintenance, 03/09/20 7:47:00 EDT, Tablet, [id number], 163, cm, 02/15/20 8:51:00 EDT, Height, [...] recent to oldest [Reference Range]: 1 Height 160 cm (08/10/20 3:49 PM) Oxygen Saturation [94-100 %] 97 % (08/10/20 3:49 PM) Pulse Rate [55-90 bpm] 55 bpm (08/10/20 3:49 PM) Blood Pressure [90-138/55-84 mm Hg] 113/ 78mm Hg (08/10/20 3:49 PM) Respiratory Rate [16-30 br/min] 19 br/mi n (08/10/20 3:49 PM) Temperature [96.8-100.4 DegF] 97.5 DegF (08/10/20 3:49 PM) Mode of Delivery (Oxygen) Room air (08/10/20 3:49 PM) Blood pressure sites Arm, left (08/10/20 3:49 PM) Temperature Route Temporal (08/10/20 3:49 PM) Social History Social History Type Response Tobacco Use: 4 or less cigar ettes(less than 1/4 pack)/day in last 30 days. Sex
--- OUTSIDE RECORDS SUMMARY | 2023-03-03 11:24 | XMS_ITS | Continuity of Care Document ---
Author Name Unknown Organization [facility] Address [address] [place] [address]- Care Team Providers Care Head Swamper Name Role Phone Not on Staff, PCP Primary Care Physician Unavail able Encounter [facility] [place] [place] Date(s): 08/10/20 - 09/09/20 [facility] [address] [place] [address]- [facility] Attending Physician: Chelsy Reagan Admitting Physician: Chelsy Reagan Referring Physician: AdmtrChelsy Allergies, Adverse Reactions, Alerts Substance Reaction Severity Status Seafood Active Immunizations Given and Recorded Vaccine Date Status Refusal Reason tetanus/diphtheria/pertussis, acel(Tdap) 02/01/20 Given Medications acetaminophen 325 mg oral tablet 650 mg, By Mouth, Every 4 hours, PRN, not to exceed 4000 mg/day, # 90 tablet, Refills 1, Tot. Refills 1, Maintenance, Pain , Mild, 04/08/20 7:44:00 EDT, Route to Pharmacy Electronically, [facility]/pharmacy#[id number], 160, cm, 04/08/20 0:23:00 EDT, Height, 68.5,... Start Date: 04/08/20 Status: Ordered Colace sodium 100 mg oral capsule 100 mg, 1, capsule, By Mouth, 2 times a day, PRN, # 60 capsule, Refills 1, Tot. Refills 1, Maintenance, for constipation, 04/08/20 7:44:00 EDT, Route to Pharmacy Electronically, [facility]/pharmacy #[id number], 160, cm, 04/08/20 0:23:00 EDT, Height, 68.5, kg, 05/0... Start Date: 04/08/20 Status: Ordered Diflucan 150 mg oral tablet = 150 mg, By Mouth, Every 48 hours, # 2 capsule, 0 Refills, Maintenance, 08/11/20 16:09:00 EDT, [facility]/pharmacy #[id number], 160, cm, 08/10/20 15:49:00 EDT, Height, 68.5, kg, 04/06/20 21:05:00 EDT, Dry Weight Start Date: 08/11/20 Status: Ordered Magdalena 30 mg oral tablet 1 tablet = 30 mg, By Mouth, Once, # 1 tablet, 1 Refills, Soft Stop, 05/05/20 17:56:00 EDT, Tablet, [facility]/pharmacy #[id number], 160, cm, 04/08/20 10:42:00 EDT, Height, [...] 2 Refills, Maintenance, 02/15/20 12:09:00 EDT, Tablet, [facility]/pharmacy #[id number], 163, cm, 02/15/20 8:51:00 EDT, Height, 71.9, kg, 01/30/20 18:33:00 EST, Dry Weight Start Date: 02/15/20 Status: Ordered Fioricet oral capsule 2 capsule, By Mouth, Every 6 hours, PRN as needed, not to exceed 6 capsules/day, # 20 capsule, 0 Refills, Maintenance, 03/23/20 16:49:00 EDT, Capsule, [facility]/pharmacy #[id number], 2 capsule By Mouth Every 6 hours,PRN:as needed,Instr:not to exceed 6 capsules/da... Start Date: 03/23/20 Status: Ordered ibuprofen 800 mg oral tablet 800 mg, 1, tablet, By Mouth, Every 8 hours, PRN, not to exceed 3200 mg/day with food or milk, # 90 tablet, Refills 1, Tot. Refills 1, Maintenance, Pain , Moderate, 04/08/20 7:45:00 EDT, Route to Pharmacy Electronically, [facility]/pharmacy #[id number], 160, cm, 0... Start Date: 04/08/20 Status: Ordered metroNIDAZOLE 0.75% topical gel 1 application, Vaginally, 2 times a day, # 45 Gm, 0 Refills, Maintenance, 08/10/20 16:16:00 EDT, [facility]/pharmacy #[id number], 1 application Vaginally 2 times a day,x5 days, 160, cm, 08/10/20 15:49:00 EDT, Height, 68.5, kg, 04/06/20 21:05:00 EDT, Dry Weight Start Date: 08/10/20 Stop Date: 08/15/20 Status: Ordered MiraLax oral powder for reconstitution = 17 Gm, By Mouth, 3 times a day, PRN Constipation, dissolve in water before taking, # 527 Gm, 0 Refills, Maintenance, 12/24/19 9:43:00 EST, REC Powder, [facility]/pharmacy #[id number], 17 Gm By Mouth 3 times a day,PRN:Constipation,Instr:dissolve in water before t... Start Date: 12/24/19 Status: Ordered Natachew Multivitamins oral tablet, chewable 1 tablet, Chew, Daily, # 30 tablet, 11 Refills, Maintenance, 12/24/19 9:46:00 EST, Chew Tablet, [facility]/pharmacy #[id number], any gummy or chewable substitution is fine, 1 tablet Chew Daily, 163, cm, 12/24/19 9:24:00 EST, Height, 78.4, kg, 06/08/19 12:... Start Date: 12/24/19 Status: Ordered ProAir HFA 90 mcg/inh inhalation aerosol with adapter 2, puffs, Inhalation, Every 4 hours, PRN, # 8.5 Gm, Refills 1, Tot. Refills 1, Maintenance, 06/14/20 14:35:00 EDT, Aerosol, Route to Pharmacy Electronically, [id number], [facility]/pharmacy #[id number], 160, cm, 05/24/20 17:54:00 EDT, [...] Flu --Declined vaccine(Confirmed) Active Current smoker(Confirmed) Active Social History Social History Type Response Tobacco Use: 4 or less cigar ettes(less than 1/4 pack)/day in last 30 days. Sex
--- OUTSIDE RECORDS SUMMARY | 2023-03-03 11:24 | XMS_ITS | Continuity of Care Document ---
Author Name Unknown Organization [facility] Address [address] [place] [address]- Care Team Providers Care Hoist Cylinder Loader Name Role Phone Not on Staff, PCP Primary Care Physician Unavail able Encounter [facility] [place] Date(s): 03/12/22 - 05/04/[address] [address] Attending Physician: Not on Staff, Attending MD Allergies, Adverse Reactions, Alerts Substance Reaction Severity Status Seafood Active Immunizations Given and Recorded Vaccine Date Status Refusal Reason influenza virus vaccine, inactivated 12/01/21 Give n tetanus/diphtheria/pertussis, acel(Tdap) 02/01/20 Given Medications folic acid 1 mg oral tablet 1 mg, 1, tablet, By Mouth, Daily, # 30 tablet, Refills 0, Tot. Refills 0, Maintenance, 04/15/22 12:00:00 EDT, Route to Pharmacy Electronically, [facility]/pharmacy #[id number], Partial fill upon patient request if the prescription is for a schedule II opioid drug.... Start Date: 04/15/22 Status: Ordered folic acid 1 mg oral tablet 1 mg, 1, tablet, By Mouth, Daily, # 30 tablet, Refills 0, Tot. Refills 0, Maintenance, 03/11/22 13:43:00 EDT, Route to Pharmacy Electronically, [facility], Partial fill upon patient request if the prescription is for a schedule II opioid... Start Date: 03/11/22 Stop Date: 04/10/22 Status: Ordered mirtazapine 15 mg oral tablet 1 tablet = 15 mg, By Mouth, Daily at bedtime, # 30 tablet, 0 Refills, Maintenance, 03/28/22 12:50:00 EDT, Tablet, [id number], Partial fill upon patient request if the prescription is for a schedule II opioid drug., 163, cm, 03/28/22 7:47:00 ED... Start Date: 03/28/22 Status: Ordered pantoprazole 40 mg oral delayed release tablet = 40 mg, By Mouth, Daily, # 7 tablet, 0 Refills, Maintenance, 03/28/22 12:50:00 EDT, EC Tablet, 163, cm, 03/28/22 7:47:00 EDT, Height, 57.5, kg, 03/26/22 5:44:00 EDT, Dry Weight Start Date: 03/28/22 Stop Date: 04/04/22 Status: Ordered Therapeutic Multiple Vitamins with Minerals oral capsule 1 capsule, By Mouth, Daily, # 30 capsule, 0 Refills, Maintenance, 04/15/22 12:01:00 EDT, Capsule, [facility]/pharmacy #[id number], Partial fill upon patient request if the prescription is for a schedule II opioiddrug., 1 capsule By Mouth Daily, 168, cm, 04/15/22... Start Date: 04/15/22 Status: Ordered thiamine 100 mg oral tablet 100 mg, 1, tablet, By Mouth, Daily, # 30 tablet, Refills 0, Tot. Refills 0, Acute 05/16/22 21:00:00EDT, 04/15/22 12:02:00 EDT, Route to Pharmacy Electronically, [facility]/pharmacy #[id number], Partial fill uponpatient request if the prescription is for a schedu... Start Date: 04/15/22 Stop Date: 05/16/22 Status: Ordered thiamine 100 mg oral tablet 100 mg, 1, tablet, By Mouth, 2 times a day, # 60 tablet, Refills 0, Tot. Refills 0, Maintenance, 03/11/22 13:43:00 EDT, Route to Pharmacy Electronically, [facility], Partial fill upon patient request if the prescription is for a schedule... Start Date: 03/11/22 Stop Date: 04/10/22 Status: Ordered Problem List Condition Effective Dates Status Health Status Inform ant Anxiety(Confirmed) Active Marijuana use(Confirmed) Active Genital herpes simplex virus (HSV) infection in mother affecting (Confirmed) Active History of depression(Confirmed) Active History of delivery(Confirmed) Active History of influenza(Confirmed) Active Flu --Declined vaccine(Confirmed) Active Current smoker(Confirmed) Active Social History Social History Type Response Smoking Status 5-9 cigarettes (betw een 1/4 to 1/2 pack)/day in last 30 days entered on: 03/27/21 Sex
--- OUTSIDE RECORDS SUMMARY | 2023-03-03 11:24 | XMS_ITS | Continuity of Care Document ---
Author Name Unknown Organization [facility] Address [address] [place] [phone]- Care Team Providers Care Olericulturist Name Role Phone Not on Staff, PCP Primary Care Physician Unavail able [place] [facility] [place](s): 02/08/21 - 05/11/[address] [address]- Attending Physician: Not on Staff, Attending MD [...] 04/08/20 7:44:00 EDT, Route to Pharmacy Electronically, [facility]/pharmacy#[id number], 160, cm, 04/08/20 0:23:00 EDT, Height, 68.5,... Start Date: 04/08/20 Status: Ordered Ensure Plus Ensure Plus, See Instructions, # 90 each, Refills 2, Tot. Refills 2, Maintenance, Ensure Plus 3x/day during for poor weight gain, 02/01/20 13:13:00 EST, Supply Start Date: 02/01/20 Status: Ordered ibuprofen 800 mg oral tablet 800 mg, 1, tablet, By Mouth, Every 8 hours, PRN, not to exceed 3200 mg/day with food or milk, # 90 tablet, Refills 0, Tot. Refills 0, Maintenance, Pain , Moderate, 12/08/20 11:01:00 EST, Route to Pharmacy Electronically, [facility]/pharmacy #[id number], 160, cm,... Start Date: 12/08/20 Status: Ordered Natachew Multivitamins oral tablet, chewable 1 tablet, Chew, Daily, # 30 tablet, 11 Refills, Maintenance, 12/24/19 9:46:00 EST, Chew Tablet, [facility]/pharmacy #[id number], any gummy or chewable substitution is fine, 1 tablet Chew Daily, 163, cm, 12/24/19 9:24:00 EST, Height, 78.4, kg, 06/08/19 12:... Start Date: 12/24/19 Status: Ordered ProAir HFA 90 mcg/inh inhalation aerosol with adapter 2, puffs, Inhalation, Every 4 hours, PRN, # 8.5 Gm, Refills 1, Tot. Refills 1, Maintenance, 06/14/20 14:35:00 EDT, Aerosol, Route to Pharmacy Electronically, [id number], [facility]/pharmacy #[id number], 160, cm, 05/24/20 17:54:00 EDT, Hei... Start Date: 06/14/20 Status: Ordered Problem List Condition Effective Dates [...]
--- OUTSIDE RECORDS SUMMARY | 2023-03-03 11:24 | XMS_ITS | Continuity of Care Document ---
Author Name Unknown Organization [facility] Address [address] [place] [id number]- Care Team Providers Care Deputy K 9 Name Role Phone Not on Staff, PCP Primary Care Physician Unavail able [place] [facility] [place] 02/01/20 - 05/26/[address] [address]- [facility] Attending Physician: Lilly Thomas CNM [...] 04/08/20 7:44:00 EDT, Route to Pharmacy Electronically, [facility]/pharmacy#[id number], 160, cm, 04/08/20 0:23:00 EDT, Height, 68.5,... Start Date: 04/08/20 Status: Ordered Colace sodium 100 mg oral capsule 100 mg, 1, capsule, By Mouth, 2 times a day, PRN, # 60 capsule, Refills 1, Tot. Refills 1, Maintenance, for constipation, 04/08/20 7:44:00 EDT, Route to Pharmacy Electronically, [facility]/pharmacy #[id number], 160, cm, 04/08/20 0:23:00 EDT, Height, 68.5, kg, 05/0... Start Date: 04/08/20 Status: Ordered Magdalena 30 mg oral tablet 1 tablet = 30 mg, By Mouth, Once, # 1 tablet, 1 Refills, Soft Stop, 05/05/20 17:56:00 EDT, Tablet, [facility]/pharmacy #[id number], 160, cm, 04/08/20 10:42:00 EDT, [...] 2 Refills, Maintenance, 02/15/20 12:09:00 EDT, Tablet, [facility]/pharmacy #[id number], 163, cm, 02/15/20 8:51:00 EDT, Height, 71.9, kg, 01/30/20 18:33:00 EST, Dry Weight Start Date: 02/15/20 Status: Ordered Fioricet oral capsule 2 capsule, By Mouth, Every 6 hours, PRN as needed, not to exceed 6 capsules/day, # 20 capsule, 0 Refills, Maintenance, 03/23/20 16:49:00 EDT, Capsule, [facility]/pharmacy #[id number], 2 capsule By Mouth Every 6 hours,PRN:as needed,Instr:not to exceed 6 capsules/da... Start Date: 03/23/20 Status: Ordered ibuprofen 800 mg oral tablet 800 mg, 1, tablet, By Mouth, Every 8 hours, PRN, not to exceed 3200 mg/day with food or milk, # 90 tablet, Refills 1, Tot. Refills 1, Maintenance, Pain , Moderate, 04/08/20 7:45:00 EDT, Route to Pharmacy Electronically, [facility]/pharmacy #[id number], 160, cm, 0... Start Date: 04/08/20 Status: Ordered MiraLax oral powder for reconstitution = 17 Gm, By Mouth, 3 times a day, PRN Constipation, dissolve in water before taking, # 527 Gm, 0 Refills, Maintenance, 12/24/19 9:43:00 EST, REC Powder, [facility]/pharmacy #[id number], 17 Gm By Mouth 3 times a day,PRN:Constipation,Instr:dissolve in water before t... Start Date: 12/24/19 Status: Ordered Natachew Multivitamins oral tablet, chewable 1 tablet, Chew, Daily, # 30 tablet, 11 Refills, Maintenance, 12/24/19 9:46:00 EST, Chew Tablet, [facility]/pharmacy #[id number], any gummy or chewable substitution [...] 05/15/20 9:03:00 EDT, Route to Pharmacy Electronically, [facility]/pharmacy #[id number], 163, cm, 03/14/20 9:02:00 EDT, Height, 72.2, kg, 0... Start Date: 05/15/20 Stop Date: 08/13/20 Status: Ordered Zofran 4 mg oral tablet 1 tablet = 4 mg, By Mouth, Every 6 hours, PRN Nausea & Vomiting, # 30 tablet, 0 Refills, Maintenance, 03/09/20 7:47:00 EDT, Tablet, [facility]/pharmacy #[id number], 163, cm, 02/15/20 8:51:00 EDT, [...]
--- OUTSIDE RECORDS SUMMARY | 2023-03-03 11:24 | XMS_ITS | Continuity of Care Document ---
Author Name Unknown Organization [facility] Address [address] [place] [phone]- Care Team Providers Care Hammer Setter Name Role Phone Not on Staff, PCP Primary Care Physician Unavail able Encounter [facility] Date(s): 07/27/21 - 08/26/[address] [address]- Allergies, Adverse Reactions, Alerts Substance Reaction Severity Status Seafood Active Immunizations Given and Recorded Vaccine Date Status Refusal Reason tetanus/diphtheria/pertussis, acel(Tdap) 02/01/20 Given Medications acetaminophen 325 mg oral tablet 650 mg, By Mouth, Every 4 hours, PRN, not to exceed 4000 mg/day, # 90 tablet, Refills 1, Tot. Refills 1, Maintenance, Pain , Mild, 04/08/20 7:44:00 EDT, Route to Pharmacy Electronically, [facility]/pharmacy#[id number], 160, cm, 04/08/20 0:23:00 EDT, Height, 68.5,... Start Date: 04/08/20 Status: Ordered Ensure Plus Ensure Plus, See Instructions, # 90 each, Refills 2, Tot. Refills 2, Maintenance, Ensure Plus 3x/day during for poor weight gain, 02/01/20 13:13:00 EST, Supply Start Date: 02/01/20 Status: Ordered famotidine 10 mg oral tablet 1 tablet = 10 mg, By Mouth, 2 times a day, # 28 tablet, 0 Refills, Maintenance, 07/07/21 9:00:00 EDT, Tablet, [facility]/pharmacy #[id number], Partial fill upon patient request if the prescription is for a schedule II opioid drug., 163, cm, 07/06/21 8:39:00 EDT, H... Start Date: 07/07/21 Status: Ordered ibuprofen 800 mg oral tablet 800 mg, 1, tablet, By Mouth, Every 8 hours, PRN, not to exceed 3200 mg/day with food or milk, # 90 tablet, Refills 0, Tot. Refills 0, Maintenance, Pain , Moderate, 12/08/20 11:01:00 EST, Route to Pharmacy Electronically, [facility]/pharmacy #[id number], 160, cm,... Start Date: 12/08/20 Status: Ordered Natachew Multivitamins oral tablet, chewable 1 tablet, Chew, Daily, # 30 tablet, 11 Refills, Maintenance, 12/24/19 9:46:00 EST, Chew Tablet, [facility]/pharmacy #[id number], any gummy or chewable substitution is fine, 1 tablet Chew Daily, 163, cm, 12/24/19 9:24:00 EST, Height, 78.4, kg, 06/08/19 12:... Start Date: 12/24/19 Status: Ordered ProAir HFA 90 mcg/inh inhalation aerosol with adapter 2, puffs, Inhalation, Every 4 hours, PRN, # 8.5 Gm, Refills 1, Tot. Refills 1, Maintenance, 06/14/20 14:35:00 EDT, Aerosol, Route to Pharmacy Electronically, [id number], [facility]/pharmacy #[id number], 160, cm, 05/24/20 17:54:00 [...]
--- OUTSIDE RECORDS SUMMARY | 2023-03-03 11:24 | XMS_ITS | Continuity of Care Document ---
Author Name Unknown Organization [facility] Address [address] [place] [id number]- Care Team Providers Care Inventory Clerk Name Role Phone Not on Staff, PCP Primary Care Physician Unavail able [place] [facility] [place] 06/20/22 - 06/21/[address] [address]- Discharge Disposition: A-D/C Home Attending Physician: Lucas Martins MD Admitting Physician: Lucas Martins MD Referring Physician: Not on Staff, Referring MD Allergies, Adverse Reactions, Alerts Substance Reaction Severity Status Seafood Active Immunizations Given and Recorded Vaccine Date Status Refusal Reason influenza virus vaccine, inactivated 12/01/21 Give n tetanus/diphtheria/pertussis, acel(Tdap) 02/01/20 Given Problem List Condition Effective Dates Status Health Status Inform ant Anxiety(Confirmed) Active COVID-19(Confirmed) 1 06/08/22 Active Marijuana use(Confirmed) Active Genital herpes simplex virus (HSV) infection in mother affecting (Confirmed) Active History of depression(Confirmed) Active History of delivery(Confirmed) Active History of influenza(Confirmed) Active Flu --Declined vaccine(Confirmed) Active Current smoker(Confirmed) Active 1Problem added by Discern Expert Vital Signs Most recent to oldest [Reference Range]: 1 2 3 Weight 60 kg (06/21/22 12:06 PM) 60 kg (06/21/22 10:16 AM) Oxygen Saturation [94-100 %] 95 % (06/21/22 12:06 PM) 98 % (06/21/22 10:16 AM) 96 % (06/21/22 6:43 AM) Pulse Rate [55-90 bpm] 98 bpm *H* (06/21/22 12:06 PM) 112 bpm *H* (06/21/22 10:16 AM) 87 bpm (06/21/22 6:43 AM) Blood Pressure [90-138/55-84 mm Hg] 114/89mm Hg (06/21/22 12:06 PM) 109/73mm Hg (06/21/22 10:16 AM) 96/59mm Hg (06/21/22 6:43 AM) Respiratory Rate [16-30 br/min] 21 br/min (06/21/22 12:06 PM) 15 br/min *L* (06/21/22 10:16 AM) 18 br/min (06/21/22 6:43 AM) Temperature [96.8-100.4 DegF] 98.5 DegF (06/21/22 10:16 AM) 97.5 DegF (06/21/22 2:22 AM) 97.5 DegF (06/21/22 12:49 AM) Mode of Delivery (Oxygen) Room air (06/21/22 10:16 AM) Room air (06/21/22 6:43 AM) Room air (06/21/22 2:22 AM) Blood pressure sites Arm, left (06/21/22 12:06 PM) Arm, left (06/21/22 10:16 AM) Arm, right (06/21/22 6:43 AM) Temperature Route Oral (06/21/22 10:16 AM) Oral (06/21/22 2:22 AM) Oral (06/21/22 12:49 AM) Social History Social History Type Response Smoking Status 5-9 cigarettes (betw een 1/4 to 1/2 pack)/day in last 30 days entered on: 03/27/21 Sex
--- OUTSIDE RECORDS SUMMARY | 2023-03-03 11:24 | XMS_ITS | Continuity of Care Document ---
Author Name Unknown Organization [facility] ter Address [address] [place] [id number]- Care Team Providers Care Poultry Process Worker Name Role Phone Beto ZHU, Joycelyn M Primary Care Physician En[place] [facility] [place] Date(s): 11/29/19 - 11/29/[address] [address]- [facility] Discharge Disposition: A-D/C Home Attending Physician: Luis Armando Juan MD Admitting Physician: Luis Armando Juan MD Referring Physician: Luis Armando Juan MD Allergies, Adverse Reactions, Alerts Substance Reaction Severity Status Seafood Active Medications Breast Pump See Instructions, # 1 units, Maintenance, double electric breast pump dx: post- care, 03/18/15 3:07:11, Compound Start Date: 03/18/15 Status: Ordered Tylenol 325 mg oral tablet 650 mg, 2, tablet, By Mouth, 4 times a day, PRN, for 14 days, # 50 tablet, Refills 1, Tot. Refills 1, Acute 11/30/19 12:50:41 EST, for pain, 11/02/19 12:50:41 EST, Route to Pharmacy Electronically, ED [id number], [facility]... Start Date: 11/02/19 Stop Date: 11/30/19 Status: Ordered Problem List Condition Effective Dates Status Health Status Inform ant Anxiety(Confirmed) Active Marijuana use(Confirmed) Active History of depression(Confirmed) Active History of chlamydia(Confirmed) Active Flu --Declined vaccine(Confirmed) Active Procedures Procedure Date Related Diagnosis Body Site Status Tonsils and adenoids 2002 Comp leted Vital Signs Most recent to oldest [Reference Range]: 1 Height 163 cm (11/29/19 1:20 PM) Weight 71.4 kg (11/29/19 1:14 PM) Oxygen Saturation [94-100 %] 100 % (11/29/19 1:14 PM) Pulse Rate [55-90 bpm] 76 bpm (11/29/19 1:14 PM) Blood Pressure [90-138/55-84 mm Hg] 126/ 66mm Hg (11/29/19 1:14 PM) Respiratory Rate [16-30 br/min] 18 br/mi n (11/29/19 1:14 PM) Temperature [96.8-100.4 DegF] 98 DegF (11/29/19 1:14 PM) Mode of Delivery (Oxygen) Room air (11/29/19 1:14 PM) Blood pressure sites Arm, right 1 (11/29/19 1:14 PM) Temperature Route Oral (11/29/19 1:14 PM) Weight Obtained Via Standing scale (11/29/19 1:14 PM) 1Result Comment: right upper arm measured 27cm Social History Social History Type Response Tobacco Use: 4 or less cigar ettes(less than 1/4 pack)/day in last 30 days. Sex
--- OUTSIDE RECORDS SUMMARY | 2023-03-03 11:24 | XMS_ITS | Continuity of Care Document ---
Author Name Unknown Organization [facility] Address [address] [place] [phone]- Care Team Providers Care Language Teacher Name Role Phone Not on Staff, PCP Primary Care Physician Unavail able En[place] [facility] [place] Date(s): 12/24/19 - 04/08/[address] [address]- [facility] Attending Physician: Lilly Thomas CNM Admitting Physician: [...] 04/08/20 7:44:00 EDT, Route to Pharmacy Electronically, [facility]/pharmacy#[id number], 160, cm, 04/08/20 0:23:00 EDT, Height, 68.5,... Start Date: 04/08/20 Status: Ordered Colace sodium 100 mg oral capsule 100 mg, 1, capsule, By Mouth, 2 times a day, PRN, # 60 capsule, Refills 1, Tot. Refills 1, Maintenance, for constipation, 04/08/20 7:44:00 EDT, Route to Pharmacy Electronically, [facility]/pharmacy #[id number], 160, cm, 04/08/20 0:23:00 EDT, Height, [...] 2 Refills, Maintenance, 02/15/20 12:09:00 EDT, Tablet, [facility]/pharmacy #[id number], 163, cm, 02/15/20 8:51:00 EDT, Height, 71.9, kg, 01/30/20 18:33:00 EST, Dry Weight Start Date: 02/15/20 Status: Ordered Fioricet oral capsule 2 capsule, By Mouth, Every 6 hours, PRN as needed, not to exceed 6 capsules/day, # 20 capsule, 0 Refills, Maintenance, 03/23/20 16:49:00 EDT, Capsule, [facility]/pharmacy #[id number], 2 capsule By Mouth Every 6 hours,PRN:as needed,Instr:not to exceed 6 capsules/da... Start Date: 03/23/20 Status: Ordered ibuprofen 800 mg oral tablet 800 mg, 1, tablet, By Mouth, Every 8 hours, PRN, not to exceed 3200 mg/day with food or milk, # 90 tablet, Refills 1, Tot. Refills 1, Maintenance, Pain , Moderate, 04/08/20 7:45:00 EDT, Route to Pharmacy Electronically, [facility]/pharmacy #[id number], 160, cm, 0... Start Date: 04/08/20 [...] 02/15/20 9:03:00 EDT, Route to Pharmacy Electronically, [facility]/pharmacy #[id number], 163, cm, 02/15/20 8:51:00 EDT, Height, 71.9, kg, 0... Start Date: 02/15/20 Stop Date: 05/15/20 Status: Ordered Valtrex 500 mg oral tablet 500 mg, 1, tablet, By Mouth, 2 times a day, for 30 days, # 60 tablet, Refills 2, Tot. Refills 2, Acute 08/13/20 9:03:00 EDT, 05/15/20 9:03:00 EDT, Route to Pharmacy Electronically, [facility]/pharmacy #[id number], 163, cm, 03/14/20 9:02:00 EDT, Height, 72.2, kg, 0... Start Date: 05/15/20 Stop Date: 08/13/20 Status: Ordered Zofran 4 mg oral tablet 1 tablet = 4 mg, By Mouth, Every 6 hours, PRN Nausea & Vomiting, # 30 tablet, 0 Refills, Maintenance, 03/09/20 7:47:00 EDT, Tablet, [facility]/pharmacy #[id number], 163, cm, 02/15/20 8:51:00 EDT, Height, [...]
--- OUTSIDE RECORDS SUMMARY | 2023-03-03 11:24 | XMS_ITS | Continuity of Care Document ---
Author Name Unknown Organization [facility] Address [address] [place] [address]- Care Team Providers Care Trailer Tank Truck Driver Name Role Phone Not on Staff, PCP Primary Care Physician Unavail able Encounter [facility] [place] Date(s): 07/24/20 - 08/25/[address] [address]- [facility] Attending Physician: Not on Staff, Attending MD [...] 04/08/20 7:44:00 EDT, [facility], [id number], 160, cm, 04/08/20 0:23:00 EDT, Height, 68.5,... Start Date: 04/08/20 Status: Ordered Colace sodium 100 mg oral capsule 100 mg, 1, capsule, By Mouth, 2 times a day, PRN, # 60 capsule, Refills 1, Tot. Refills 1, Maintenance, for constipation, 04/08/20 7:44:00 EDT, Route to Pharmacy Electronically, [facility]/pharmacy #[id number], 160, cm, 04/08/20 0:23:00 EDT, Height, 68.5, kg, 05/0... Start Date: 04/08/20 Status: Ordered Diflucan 150 mg oral tablet = 150 mg, By Mouth, Every 48 hours, # 2 capsule, 0 Refills, Maintenance, 08/11/20 16:09:00 EDT, [id number], 160, cm, 08/10/20 15:49:00 EDT, Height, 68.5, kg, 04/06/20 21:05:00 EDT, Dry Weight Start Date: 08/11/20 Status: Ordered Magdalena 30 mg oral tablet 1 tablet = 30 mg, By Mouth, Once, # 1 tablet, 1 Refills, Soft Stop, 05/05/20 17:56:00 EDT, Tablet, [facility]/pharmacy #[id number], 160, cm, 04/08/20 10:42:00 EDT, [...] 2 Refills, Maintenance, 02/15/20 12:09:00 EDT, Tablet, [facility]/pharmacy #[id number], 163, cm, 02/15/20 8:51:00 EDT, Height, 71.9, kg, 01/30/20 18:33:00 EST, Dry Weight Start Date: 02/15/20 Status: Ordered Fioricet oral capsule 2 capsule, By Mouth, Every 6 hours, PRN as needed, not to exceed 6 capsules/day, # 20 capsule, 0 Refills, Maintenance, 03/23/20 16:49:00 EDT, Capsule, [facility]/pharmacy #[id number], 2 capsule By Mouth Every 6 hours,PRN:as needed,Instr:not to exceed 6 capsules/da... Start Date: 03/23/20 Status: Ordered ibuprofen 800 mg oral tablet 800 mg, 1, tablet, By Mouth, Every 8 hours, PRN, not to exceed 3200 mg/day with food or milk, # 90 tablet, Refills 1, Tot. Refills 1, Maintenance, Pain , Moderate, 04/08/20 7:45:00 EDT, Route to Pharmacy Electronically, [facility]/pharmacy #[id number], 160, cm, 0... Start Date: 04/08/20 Status: Ordered metroNIDAZOLE 0.75% topical gel 1 application, Vaginally, 2 times a day, # 45 Gm, 0 Refills, Maintenance, 08/10/20 16:16:00 EDT, [facility]/pharmacy #[id number], 1 application Vaginally 2 times a day,x5 days, 160, cm, 08/10/20 15:49:00 EDT, Height, 68.5, kg, 04/06/20 21:05:00 EDT, Dry Weight Start Date: 08/10/20 Stop Date: 08/15/20 Status: Ordered MiraLax oral powder for reconstitution = 17 Gm, By Mouth, 3 times a day, PRN Constipation, dissolve in water before taking, # 527 Gm, 0 Refills, Maintenance, 12/24/19 9:43:00 EST, REC Powder, [facility]/pharmacy #[id number], 17 Gm By Mouth 3 times a day,PRN:Constipation,Instr:dissolve in water before t... Start Date: 12/24/19 Status: Ordered Natachew Multivitamins oral tablet, chewable 1 tablet, Chew, Daily, # 30 tablet, 11 Refills, Maintenance, 12/24/19 9:46:00 EST, Chew Tablet, [facility]/pharmacy #[id number], any gummy or chewable substitution is fine, 1 tablet Chew Daily, 163, cm, 12/24/19 9:24:00 EST, Height, 78.4, kg, 06/08/19 12:... Start Date: 12/24/19 Status: Ordered ProAir HFA 90 mcg/inh inhalation aerosol with adapter 2, puffs, Inhalation, Every 4 hours, PRN, # 8.5 Gm, Refills 1, Tot. Refills 1, Maintenance, 06/14/20 14:35:00 EDT, Aerosol, Route to Pharmacy Electronically, [id number], [facility]/pharmacy #[id number], 160, cm, 05/24/20 17:54:00 [...]
--- OUTSIDE RECORDS SUMMARY | 2023-03-03 11:24 | XMS_ITS | Continuity of Care Document ---
Author Name Unknown Organization [facility] Address [address] [place] [id number]- Care Team Providers Care Weight Loss Consultant Name Role Phone Not on Staff, PCP Primary Care Physician Unavail able Encounter [facility] Date(s): 10/16/20 - 11/15/[address] [address] Allergies, Adverse Reactions, Alerts Substance Reaction Severity Status Seafood Active Immunizations Given and Recorded Vaccine Date Status Refusal Reason tetanus/diphtheria/pertussis, acel(Tdap) 02/01/20 Given Medications acetaminophen 325 mg oral tablet 650 mg, By Mouth, Every 4 hours, PRN, not to exceed 4000 mg/day, # 90 tablet, Refills 1, Tot. Refills 1, Maintenance, Pain , Mild, 04/08/20 7:44:00 EDT, Route to Pharmacy Electronically, [facility]/pharmacy#[id number], 160, cm, 04/08/20 0:23:00 EDT, Height, 68.5,... Start Date: 04/08/20 Status: Ordered Colace sodium 100 mg oral capsule 100 mg, 1, capsule, By Mouth, 2 times a day, PRN, # 60 capsule, Refills 1, Tot. Refills 1, Maintenance, for constipation, 04/08/20 7:44:00 EDT, Route to Pharmacy Electronically, [facility]/pharmacy #[id number], 160, cm, 04/08/20 0:23:00 EDT, Height, 68.5, kg, 05/0... Start Date: 04/08/20 Status: Ordered Diflucan 150 mg oral tablet = 150 mg, By Mouth, Every 48 hours, # 2 capsule, 0 Refills, Maintenance, 08/11/20 16:09:00 EDT, [facility]/pharmacy #[id number], 160, cm, 08/10/20 15:49:00 EDT, Height, 68.5, kg, 04/06/20 21:05:00 EDT, Dry Weight Start Date: 08/11/20 Status: Ordered Magdalena 30 mg oral tablet 1 tablet = 30 mg, By Mouth, Once, # 1 tablet, 1 Refills, Soft Stop, 05/05/20 17:56:00 EDT, Tablet, [facility]/pharmacy #[id number], 160, cm, 04/08/20 10:42:00 EDT, [...] 2 Refills, Maintenance, 02/15/20 12:09:00 EDT, Tablet, [facility]/pharmacy #[id number], 163, cm, 02/15/20 8:51:00 EDT, Height, 71.9, kg, 01/30/20 18:33:00 EST, Dry Weight Start Date: 02/15/20 Status: Ordered Fioricet oral capsule 2 capsule, By Mouth, Every 6 hours, PRN as needed, not to exceed 6 capsules/day, # 20 capsule, 0 Refills, Maintenance, 03/23/20 16:49:00 EDT, Capsule, [facility]/pharmacy #[id number], 2 capsule By Mouth Every 6 hours,PRN:as needed,Instr:not to exceed 6 capsules/da... Start Date: 03/23/20 Status: Ordered ibuprofen 800 mg oral tablet 800 mg, 1, tablet, By Mouth, Every 8 hours, PRN, not to exceed 3200 mg/day with food or milk, # 90 tablet, Refills 1, Tot. Refills 1, Maintenance, Pain , Moderate, 04/08/20 7:45:00 EDT, Route to Pharmacy Electronically, [facility]/pharmacy #[id number], 160, cm, 0... Start Date: 04/08/20 Status: Ordered metroNIDAZOLE 0.75% topical gel 1 application, Vaginally, 2 times a day, # 45 Gm, 0 Refills, Maintenance, 08/10/20 16:16:00 EDT, [facility]/pharmacy #[id number], 1 application Vaginally 2 times a day,x5 days, 160, cm, 08/10/20 15:49:00 EDT, Height, 68.5, kg, 04/06/20 21:05:00 EDT, Dry Weight Start Date: 08/10/20 Stop Date: 08/15/20 Status: Ordered MiraLax oral powder for reconstitution = 17 Gm, By Mouth, 3 times a day, PRN Constipation, dissolve in water before taking, # 527 Gm, 0 Refills, Maintenance, 12/24/19 9:43:00 EST, REC Powder, [facility]/pharmacy #[id number], 17 Gm By Mouth 3 times a day,PRN:Constipation,Instr:dissolve in water before t... Start Date: 12/24/19 Status: Ordered Natachew Multivitamins oral tablet, chewable 1 tablet, Chew, Daily, # 30 tablet, 11 Refills, Maintenance, 12/24/19 9:46:00 EST, Chew Tablet, [facility]/pharmacy #[id number], any gummy or chewable substitution is fine, 1 tablet Chew Daily, 163, cm, 12/24/19 9:24:00 EST, Height, 78.4, kg, 06/08/19 12:... Start Date: 12/24/19 Status: Ordered ProAir HFA 90 mcg/inh inhalation aerosol with adapter 2, puffs, Inhalation, Every 4 hours, PRN, # 8.5 Gm, Refills 1, Tot. Refills 1, Maintenance, 06/14/20 14:35:00 EDT, Aerosol, Route to Pharmacy Electronically, [id number], [facility]/pharmacy #[id number], 160, cm, 05/24/20 [...]
--- OUTSIDE RECORDS SUMMARY | 2023-03-03 11:24 | XMS_ITS | Continuity of Care Document ---
Author Name Unknown Organization [facility] Address [address] [place] [address]- Care Team Providers Care Revit Drafter Name Role Phone Not on Staff, PCP Primary Care Physician Unavail able Encounter [facility] [place] [place] Date(s): 12/24/19 - 03/11/20 [facility] [address] [address]- [facility] Attending Physician: Lilly Thomas CNM Admitting [...] 12/24/19 9:43:00 EST, Route to Pharmacy Electronically, [facility]/pharmacy #[id number], 163, cm, 12/24/19 9:24:00 EST, Height, [...] 2 Refills, Maintenance, 02/15/20 12:09:00 EDT, Tablet, [facility]/pharmacy #[id number], 163, cm, 02/15/20 8:51:00 EDT, Height, 71.9, kg, 01/30/20 18:33:00 EST, Dry Weight Start Date: 02/15/20 Status: Ordered MiraLax oral powder for reconstitution = 17 Gm, By Mouth, 3 times a day, PRN Constipation, dissolve in water before taking, # 527 Gm, 0 Refills, Maintenance, 12/24/19 9:43:00 EST, REC Powder, [facility]/pharmacy #[id number], 17 Gm By Mouth 3 times a day,PRN:Constipation,Instr:dissolve in water before t... Start Date: 12/24/19 Status: Ordered Natachew Multivitamins oral tablet, chewable 1 tablet, Chew, Daily, # 30 tablet, 11 Refills, Maintenance, 12/24/19 9:46:00 EST, Chew Tablet, [facility]/pharmacy #[id number], any gummy or chewable [...] 02/15/20 9:03:00 EDT, Route to Pharmacy Electronically, [facility]/pharmacy #[id number], 163, cm, 02/15/20 8:51:00 EDT, Height, 71.9, kg, 0... Start Date: 02/15/20 Stop Date: 05/15/20 Status: Ordered Zofran 4 mg oral tablet 1 tablet = 4 mg, By Mouth, Every 6 hours, PRN Nausea & Vomiting, # 30 tablet, 0 Refills, Maintenance, 03/09/20 7:47:00 EDT, Tablet, [facility]/pharmacy #[id number], 163, cm, 02/15/20 8:51:00 [...]
--- OUTSIDE RECORDS SUMMARY | 2023-03-03 11:24 | XMS_ITS | Continuity of Care Document ---
Author Name Unknown Organization [facility] ter Address [address] [place] [id number]- Care Team Providers Care Chief Librarian Extension Department Name Role Phone Not on Staff, PCP Primary Care Physician Unavail able Encounter [facility] [place] Date(s): 02/01/22 - 02/05/[address] [address]- Discharge Disposition: A-D/C Home Attending Physician: Christel Booker MD Admitting Physician: Bere Ramos MD Referring Physician: Not on Staff, Referring [...] is for a schedule II opioid drug., [email or web address], 12/04/21 14:52:00... Start Date: 12/05/21 Status: Ordered Bela 0.35 mg oral tablet 1 tablet = 0.35 mg, By Mouth, Daily, # 28 tablet, 12 Refills, Maintenance, 12/05/21 13:10:00 EST, Tablet, [id number], Partial fill upon patient request if the prescription is for a schedule II opioid drug., Yadira, hakeem, 12/05/21 12:52:00 EST, Heig... Start Date: 12/05/21 Status: Ordered Dilaudid 2 mg oral tablet 2 mg, Tablet, By Mouth, Once, Routine, 02/05/22 2:00:00 EST, Stop date 02/05/22 2:00:00 EST Start Date: 02/05/22 Stop Date: 02/05/22 Status: Completed Ensure Plus Ensure Plus, See Instructions, # 90 each, Refills 2, Tot. Refills 2, Maintenance, Ensure Plus 3x/day during for poor weight gain, 02/01/20 13:13:00 EST, Supply Start Date: 02/01/20 Status: Ordered folic acid 1 mg oral tablet 1 mg, 1, tablet, By Mouth, Daily, # 30 tablet, Refills 0, Tot. Refills 0, Maintenance, 12/05/21 10:58:00 EST, Route to Pharmacy Electronically, [facility]/pharmacy #[id number], Partial fill upon patient request if the prescription is for a schedule II opioid drug.... Start Date: 12/05/21 Status: Ordered Natachew Multivitamins oral tablet, chewable 1 tablet, Chew, Daily, # 30 tablet, 11 Refills, Maintenance, 12/24/19 9:46:00 EST, Chew Tablet, [facility]/pharmacy #[id number], any gummy or chewable [...] 14:35:00 EDT, Aerosol, Route to Pharmacy Electronically, [id number], [facility]/pharmacy #[id number], 160, cm, 05/24/20 17:54:00 EDT, Hei... Start Date: 06/14/20 Status: Ordered sucralfate 1 gm oral tablet 1 Gm, 1, tablet, By Mouth, 3 times a day before meals and bedtime, # 120 tablet, Refills 0, Tot. Refills 0, Maintenance, 02/05/22 9:07:00 EST, Route to Pharmacy Electronically, [facility], Partial fill upon patient request if the prescri... Start Date: 02/05/22 Status: Ordered thiamine 100 mg oral tablet 100 mg, 1, tablet, By Mouth, 2 times a day, # 60 tablet, Refills 0, Tot. Refills 0, Maintenance, 12/05/21 10:58:00 EST, Route to Pharmacy Electronically, [facility]/pharmacy #[id number], Partial fill upon patientrequest if the prescription [...] to oldest [Reference Range]: 1 2 3 Height 162 cm (02/01/22 5:02 PM) Weight 56.3 kg (02/01/22 5:02 PM) Oxygen Saturation [94-100 %] 99 % (02/05/22 7:00 AM) 100 % (02/05/22 3:00 AM) 100 % (02/04/22 11:00 PM) Pulse Rate [55-90 bpm] 53 bpm *L* (02/05/22 7:00 AM) 65 bpm (02/05/22 3:00 AM) 62 bpm (02/04/22 11:00 PM) Body Mass Index [18.5-24.99] 21.45 (02/01/22 5:02 PM) Blood Pressure [90-138/55-84 mm Hg] 88/44mm Hg *L* (02/05/22 7:00 AM) 93/58mm Hg (02/05/22 3:00 AM) 122/69mm Hg (02/04/22 11:00 PM) Respiratory Rate [16-30 br/min] 18 br/min (02/05/22 7:00 AM) 18 br/min (02/05/22 3:00 AM) 18 br/min (02/05/22 2:10 AM) Temperature [96.8-100.4 DegF] 98.3 DegF (02/05/22 7:00 AM) 98.3 DegF (02/05/22 3:00 AM) 98.3 DegF (02/04/22 11:00 PM) Mode of Delivery (Oxygen) Room air (02/05/22 7:00 AM) Room air (02/05/22 3:00 AM) Room air (02/04/22 11:00 PM) Blood pressure sites Arm, right (02/05/22 7:00 AM) Arm, right (02/05/22 3:00 AM) Arm, right (02/04/22 11:00 PM) Temperature Route Oral (02/05/22 7:00 AM) Oral (02/05/22 3:00 AM) Oral (02/04/22 11:00 PM) Dry Weight 56.3 kg (02/01/22 5:02 PM) Weight Obtained Via Bed scale (02/01/22 5:02 PM) Dry Weight Obtained Via Bed scale (02/01/22 5:02 PM) Social History Social History Type Response Smoking Status 5-9 cigarettes (betw een 1/4 to 1/2 pack)/day in last 30 days entered on: 03/27/21 Sex
--- OUTSIDE RECORDS SUMMARY | 2023-03-03 11:24 | XMS_ITS | Continuity of Care Document ---
Author Name Unknown Organization [facility] ter Address [address] [place] [id number]- Care Team Providers Care Operations Developer Name Role Phone Not on Staff, PCP Primary Care Physician Unavail able Encounter [facility] [place] Date(s): 01/30/20 - 01/30/[address] [address]- [facility] Discharge Disposition: A-D/C Home Attending Physician: Roxana Montoya MD Admitting Physician: Roxana Montoya MD Referring Physician: Roxana Montoya MD Allergies, Adverse Reactions, Alerts Substance Reaction Severity Status Seafood Active Medications Breast Pump See Instructions, # 1 units, Maintenance, double electric breast pump dx: post- care, 03/18/15 3:07:11, Compound Start Date: 03/18/15 Status: Ordered Colace sodium 100 mg oral capsule 100 mg, 1, capsule, By Mouth, 2 times a day, PRN, # 60 capsule, Refills 1, Tot. Refills 1, Maintenance, for constipation, 12/24/19 9:43:00 EST, Route to Pharmacy Electronically, [facility]/pharmacy #[id number], 163, cm, 12/24/19 9:24:00 EST, Height, 78.4, kg, 07/0... Start Date: 12/24/19 Status: Ordered MiraLax oral powder for reconstitution [...] 06/08/19 12:... Start Date: 12/24/19 Status: Ordered Reglan 10 mg oral tablet 1 tablet = 10 mg, By Mouth, 4 times a day, PRN Nausea & Vomiting, for 10 days, # 40 tablet, 0 Refills, Hard Stop 02/09/20 16:20:00 EDT, 01/30/20 16:20:00 EST, Tablet, [id number], 163, cm,01/17/20 15:32:00 EST, Height, 70.5, kg, 01/17/20 15:32... Start Date: 01/30/20 Stop Date: 02/09/20 Status: Ordered Reglan 10 mg oral tablet 1 tablet = 10 mg, By Mouth, 4 times a day, PRN Nausea & Vomiting, # 40 tablet, 1 Refills, Maintenance, 02/09/20 16:20:00 EDT, Tablet, [id number], 163, cm, 01/30/20 18:33:00 EST, Height, 71.9, kg, 01/30/20 18:33:00 EST, Dry Weight Start Date: 02/09/20 Stop Date: 02/29/20 Status: Ordered Zofran 4 mg oral tablet 1 tablet = 4 mg, By Mouth, Every 4 hours, PRN as needed for nausea/vomiting, # 30 tablet, 0 Refills, Maintenance, 01/21/20 11:07:00 EST, Tablet, [id number], 163, cm, 01/17/20 15:32:00 EST, Height, 70.5, kg, 01/17/20 15:32:00 EST, Dry Weight Start Date: 01/21/20 Status: Ordered Problem List Condition Effective Dates Status Health Status Inform ant Anxiety(Confirmed) Active Constipation during (Confirmed) Active Marijuana use(Confirmed) Active History of depression(Confirmed) Active History of delivery(Confirmed) Active Flu --Declined vaccine(Confirmed) Active Poor weight gain of (Confirmed) Active Nausea/vomiting in (Confirmed) Active Current smoker(Confirmed) Active Vital Signs Most recent to oldest [Reference Range]: 1 2 Height 163 cm (01/30/20 6:20 PM) Weight 71.9 kg (01/30/20 6:20 PM) 71.9 kg (01/30/20 6:20 PM) Pulse Rate [55-90 bpm] 84 bpm (01/30/20 6:20 PM) Body Mass Index [18.5-24.99] 27.06 *H* (01/30/20 6:20 PM) Blood Pressure [90-138/55-84 mm Hg] 128/ 65mm Hg (01/30/20 6:20 PM) Respiratory Rate [16-30 br/min] 18 br/mi n (01/30/20 6:20 PM) Temperature [96.8-100.4 DegF] 98.8 DegF (01/30/20 6:20 PM) Blood pressure sites Arm, right (01/30/20 6:20 PM) Temperature Route Oral (01/30/20 6:20 PM) Dry Weight 71.9 kg (01/30/20 6:20 PM) Weight Obtained Via Standing scale (01/30/20 6:20 PM) Social History Social History Type Response Tobacco Use: 4 or less cigar ettes(less than 1/4 pack)/day in last 30 days. Sex
--- OUTSIDE RECORDS SUMMARY | 2023-03-03 11:24 | XMS_ITS | Continuity of Care Document ---
Author Name Unknown Organization [facility] Address [address] [place] [address]- Care Team Providers Care Box Toe Buffer Name Role Phone Not on Staff, PCP Primary Care Physician Unavail able Encounter [facility] [place] Date(s): 04/01/22 - 05/01/[address] [address]- Attending Physician: Chelsy Reagan Admitting Physician: Chelsy [...] 04/15/22 12:00:00 EDT, Route to Pharmacy Electronically, [facility]/pharmacy #[id number], Partial fill upon patient request if the prescription is for a schedule II opioid drug.... Start Date: 04/15/22 Status: Ordered folic acid 1 mg oral tablet 1 mg, 1, tablet, By Mouth, Daily, # 30 tablet, Refills 0, Tot. Refills 0, Maintenance, 03/11/22 13:43:00 EDT, Route to Pharmacy Electronically, [facility], Partial fill upon patient request if the prescription is for a schedule II opioid... Start Date: 03/11/22 Stop Date: 04/10/22 Status: Ordered mirtazapine 15 mg oral tablet 1 tablet = 15 mg, By Mouth, Daily at bedtime, # 30 tablet, 0 Refills, Maintenance, 03/28/22 12:50:00 EDT, Tablet, [facility]/pharmacy #[id number], Partial fill upon patient request if [...] 0 Refills, Maintenance, 04/15/22 12:01:00 EDT, Capsule, [facility]/pharmacy #[id number], Partial fill upon patient request if the prescription is for a schedule II opioiddrug., 1 capsule By Mouth Daily, 168, cm, 04/15/22... Start Date: 04/15/22 Status: Ordered thiamine 100 mg oral tablet 100 mg, 1, tablet, By Mouth, Daily, # 30 tablet, Refills 0, Tot. Refills 0, Acute 05/16/22 21:00:00EDT, 04/15/22 12:02:00 EDT, Route to Pharmacy Electronically, [facility]/pharmacy #[id number], Partial fill uponpatient request if the prescription is for a schedu... Start Date: 04/15/22 Stop Date: 05/16/22 Status: Ordered thiamine 100 mg oral tablet 100 mg, 1, tablet, By Mouth, 2 times a day, # 60 tablet, Refills 0, Tot. Refills 0, Maintenance, 03/11/22 13:43:00 EDT, Route to Pharmacy Electronically, [facility], Partial fill upon patient [...]
--- OUTSIDE RECORDS SUMMARY | 2023-03-03 11:24 | XMS_ITS | Continuity of Care Document ---
Author Name Unknown Organization [facility] Address [address] [place] [address]- Care Team Providers Care Consumer Loan Manager Name Role Phone Not on Staff, PCP Primary Care Physician Unavail able Encounter [facility] [place] Date(s): 12/24/19 - 03/25/20 [facility] [address] [address]- [facility] Attending Physician: Lilly Thomas CNM Admitting [...] 12/24/19 9:43:00 EST, Route to Pharmacy Electronically, [facility]/pharmacy #[id number], 163, cm, 12/24/19 9:24:00 EST, Height, [...] Refills, Maintenance, 12/24/19 9:43:00 EST, REC Powder, [facility]/pharmacy #[id number], 17 Gm By Mouth 3 times a day,PRN:Constipation,Instr:dissolve in water before t... Start Date: 12/24/19 Status: Ordered Natachew Multivitamins oral tablet, chewable 1 tablet, Chew, Daily, # 30 tablet, 11 Refills, Maintenance, 12/24/19 9:46:00 EST, Chew Tablet, [facility]/pharmacy #[id number], any gummy or chewable substitution is [...] 05/15/20 9:03:00 EDT, [id number], 163, cm, 03/14/20 9:02:00 EDT, Height, [...]
--- OUTSIDE RECORDS SUMMARY | 2023-03-03 11:24 | XMS_ITS | Continuity of Care Document ---
Author Name Unknown Organization [facility] ter Address [address] [place] [address]- Care Team Providers Care Military Source Operations Officer Name Role Phone Not on Staff, PCP Primary Care Physician Unavail able Encounter [facility] [place] Date(s): 03/23/22 - 03/23/[address] [address]- Encounter Diagnosis Alcohol intoxication(Final) - 03/23/22 Discharge Disposition: A-D/C Home Attending Physician: Asif Tobin DO Admitting Physician: Asif Tobin DO Referring Physician: Not on Staff, Referring MD [...] 03/11/22 13:43:00 EDT, Route to Pharmacy Electronically, [facility], Partial fill upon patient request if the prescription is for a schedule II opioid... Start Date: 03/11/22 Stop Date: 04/10/22 Status: Ordered hydrOXYzine pamoate 25 mg oral capsule 1 capsule = 25 mg, By Mouth, Every 6 hours, PRN Anxiety, for 30 days, # 60 capsule, 0 Refills, Acute 04/10/22 13:43:00 EDT, 03/11/22 13:43:00 EDT, Capsule, [facility], Partial fill uponpatient request if the prescription is for a schedu... Start Date: 03/11/22 Stop Date: 04/10/22 Status: Ordered naltrexone 50 mg oral tablet 1 tablet = 50 mg, By Mouth, Daily, for 30 days, # 30 tablet, 0 Refills, Acute 04/10/22 13:43:00 EDT, 03/11/22 13:43:00 EDT, Tablet, [facility], Partial fill upon patient request if the prescription is for a schedule II opioid drug., 163,... Start Date: 03/11/22 Stop Date: 04/10/22 Status: Ordered nicotine 14 mg/24 hr transdermal film, extended release 1 patch, Topically, Daily, for 30 days, # 30 patch, 0 Refills, Acute 04/10/22 13:47:00 EDT, 03/11/22 13:47:00 EDT, Patch, [facility], Partial fill upon patient request if the prescription is for a schedule II opioid drug., 1 patch Topica... Start Date: 03/11/22 Stop Date: 04/10/22 Status: Ordered thiamine 100 mg oral tablet 100 mg, 1, tablet, By Mouth, 2 times a day, # 60 tablet, Refills 0, Tot. Refills 0, Maintenance, 03/11/22 13:43:00 EDT, Route to Pharmacy Electronically, [facility], Partial fill upon patient [...] recent to oldest [Reference Range]: 1 2 Oxygen Saturation [94-100 %] 100 % (03/23/22 8:06 PM) 100 % (03/23/22 3:02 PM) Pulse Rate [55-90 bpm] 95 bpm *H* (03/23/22 8:06 PM) 112 bpm *H* (03/23/22 3:02 PM) Blood Pressure [90-138/55-84 mm Hg] 131/ 71mm Hg (03/23/22 8:06 PM) 124/79mm Hg (03/23/22 3:02 PM) Respiratory Rate [16-30 br/min] 18 br/mi n (03/23/22 8:06 PM) 18 br/min (03/23/22 3:02 PM) Temperature [96.8-100.4 DegF] 98.3 DegF (03/23/22 8:06 PM) 97.9 DegF (03/23/22 3:02 PM) Mode of Delivery (Oxygen) Room air (03/23/22 8:06 PM) Room air (03/23/22 3:02 PM) Blood pressure sites Arm, right (03/23/22 8:06 PM) Temperature Route Oral (03/23/22 8:06 PM) Oral (03/23/22 3:02 PM) Social History Social History Type Response Smoking Status 5-9 cigarettes (betw een 1/4 to 1/2 pack)/day in last 30 days entered on: 03/27/21 Sex
--- OUTSIDE RECORDS SUMMARY | 2023-03-03 11:24 | XMS_ITS | Continuity of Care Document ---
Author Name Unknown Organization [facility] ter Address [address] [place] [phone]- Care Team Providers Care Lab Pack Chemist Name Role Phone Not on Staff, PCP Primary Care Physician Unavail able Encounter [facility] [place] Date(s): 04/08/22 - 04/08/[address] [address]- Discharge Disposition: A-D/C Walkout Attending Physician: Not on Staff, Attending MD Admitting Physician: Not on Staff, Admitting MD Referring Physician: Not on Staff, Referring [...] 03/11/22 13:43:00 EDT, Route to Pharmacy Electronically, [facility], Partial fill upon patient request if the prescription is for a schedule II opioid... Start Date: 03/11/22 Stop Date: 04/10/22 Status: Ordered hydrOXYzine pamoate 50 mg oral capsule 1 capsule = 50 mg, By Mouth, 2 times a day, PRN as needed for anxiety, for 30 days, # 60 capsule, 0Refills, Acute 04/27/22 12:49:00 EDT, 03/28/22 12:49:00 EDT, [facility]apsule, [id number], Partial fill upon patient request if the prescription is for... Start Date: 03/28/22 Stop Date: 04/27/22 Status: Ordered mirtazapine 15 mg oral tablet 1 tablet = 15 mg, By Mouth, Daily at bedtime, # 30 tablet, 0 Refills, Maintenance, 03/28/22 12:50:00 EDT, Tablet, [facility]/pharmacy #[id number], Partial fill upon patient request if the prescription is for a schedule II opioid drug., 163, cm, 03/28/22 7:47:00 ED... Start Date: 03/28/22 Status: Ordered naltrexone 50 mg oral tablet 1 tablet = 50 mg, By Mouth, Daily, for 30 days, # 30 tablet, 0 Refills, Acute 04/10/22 13:43:00 EDT, 03/11/22 13:43:00 EDT, Tablet, [facility], Partial fill upon patient request if the prescription is for a schedule II opioid drug., 163,... Start Date: 03/11/22 Stop Date: 04/10/22 Status: Ordered nicotine 14 mg/24 hr transdermal film, extended release 1 patch, Topically, Daily, for 30 days, # 30 patch, 0 Refills, Acute 04/10/22 13:47:00 EDT, 03/11/22 13:47:00 EDT, Patch, [facility], Partial fill upon patient request if the prescription is for a schedule II opioid drug., 1 patch Topica... Start Date: 03/11/22 Stop Date: 04/10/22 Status: Ordered pantoprazole 40 mg oral delayed release tablet = 40 mg, By Mouth, Daily, # 7 tablet, 0 Refills, Maintenance, 03/28/22 12:50:00 EDT, EC Tablet, 163, cm, 03/28/22 7:47:00 EDT, Height, 57.5, kg, 03/26/22 5:44:00 EDT, Dry Weight Start Date: 03/28/22 Stop Date: 04/04/22 Status: Ordered pyridoxine 50 mg oral tablet 50 mg, 1, tablet, By Mouth, Daily, for 30 days, # 30 tablet, Refills 0, Tot. Refills 0, Acute 04/27/22 12:51:00 EDT, 03/28/22 12:51:00 EDT, Route to Pharmacy Electronically, [facility]/pharmacy #[id number], Partial fill upon patient request if the prescription is... Start Date: 03/28/22 Stop Date: 04/27/22 Status: Ordered thiamine 100 mg oral tablet 100 mg, 1, tablet, By Mouth, 2 times a day, # 60 tablet, Refills 0, Tot. Refills 0, Maintenance, 03/11/22 13:43:00 EDT, Route to Pharmacy Electronically, [facility], Partial fill upon patient [...] Most recent to oldest [Reference Range]: 1 Oxygen Saturation [94-100 %] 98 % (04/08/22 1:53 AM) Pulse Rate [55-90 bpm] 110 bpm *H* (04/08/22 1:53 AM) Blood Pressure [90-138/55-84 mm Hg] 119/ 84mm Hg (04/08/22 1:53 AM) Respiratory Rate [16-30 br/min] 18 br/mi n (04/08/22 1:53 AM) Temperature [96.8-100.4 DegF] 97.8 DegF (04/08/22 1:53 AM) Mode of Delivery (Oxygen) Room air (04/08/22 1:53 AM) Blood pressure sites Arm, left (04/08/22 1:53 AM) Temperature Route Oral (04/08/22 1:53 AM) Social History Social History Type Response Smoking Status 5-9 cigarettes (betw een 1/4 to 1/2 pack)/day in last 30 days entered on: 03/27/21 Sex
--- OUTSIDE RECORDS SUMMARY | 2023-03-03 11:24 | XMS_ITS | Continuity of Care Document ---
Author Name Unknown Organization [facility] Address [address] [place] [id number]- Care Team Providers Care Lead Generation Marketing Manager Name Role Phone Not on Staff, PCP Primary Care Physician Unavail able Encounter [facility] [place] Date(s): 12/03/19 - 01/30/20 [facility] [address] [address]- [facility] Attending Physician: Lilly Thomas CNM Admitting [...] 9:43:00 EST, Route to Pharmacy Electronically, [facility]/pharmacy #[id number], 163, cm, 12/24/19 9:24:00 EST, Height, 78.4, kg, 07/0... Start Date: 12/24/19 Status: Ordered MiraLax oral powder for reconstitution = 17 Gm, By Mouth, 3 times a day, PRN Constipation, dissolve in water before taking, # 527 Gm, 0 Refills, Maintenance, 12/24/19 9:43:00 EST, REC Powder, [facility]/pharmacy #[id number], 17 Gm By Mouth [...]
--- OUTSIDE RECORDS SUMMARY | 2023-03-03 11:24 | XMS_ITS | Continuity of Care Document ---
Author Name Unknown Organization [facility] ter Address [address] [place] [id number]- Care Team Providers Care News Editor Name Role Phone Not on Staff, PCP Primary Care Physician Unavail able [place] [facility] [place] 03/24/22 - 03/28/[address] [address]- Discharge Disposition: A-D/C Home Attending Physician: Jeannie Valdivia MD Admitting Physician: Nicolle Paulino MD Referring Physician: Not on Staff, Referring MD Allergies, Adverse Reactions, Alerts Substance Reaction Severity Status Seafood Active Immunizations Given and Recorded Vaccine Date Status Refusal Reason influenza virus vaccine, inactivated 12/01/21 Give n tetanus/diphtheria/pertussis, acel(Tdap) 02/01/20 Given Medications Dilaudid Inj 1 mg, Injection, IV Push Slowly, Every 3 hours, PRN for Pain , Severe, BRIGITTE, 03/26/22 9:42:00 EDT Start Date: 03/26/22 Stop Date: 03/28/22 Status: Discontinued folic acid 1 mg oral tablet 1 mg, 1, tablet, By Mouth, Daily, # 30 tablet, Refills 0, Tot. Refills 0, Maintenance, 03/11/22 13:43:00 EDT, Route to Pharmacy Electronically, [facility], Partial fill upon patient request if the prescription is for a schedule II opioid... Start Date: 03/11/22 Stop Date: 04/10/22 Status: Ordered hydrOXYzine pamoate 50 mg oral capsule 1 capsule = 50 mg, By Mouth, 2 times a day, PRN as needed for anxiety, for 30 days, # 60 capsule, 0Refills, Acute 04/27/22 12:49:00 EDT, 03/28/22 12:49:00 EDT, Capsule, [id number], Partial fill upon patient request if the prescription is for... Start Date: 03/28/22 Stop Date: 04/27/22 Status: Ordered MiraLax oral powder for reconstitution = 17 Gm, By Mouth, Daily, for 7 days, dissolve in water before taking, # 119 Gm, 0 Refills, Acute 04/04/22 12:50:00 EDT, 03/28/22 12:50:00 EDT, REC Powder, [facility]/pharmacy #[id number], Partial fill upon patient request if the prescription is for a schedule II... Start Date: 03/28/22 Stop Date: 04/04/22 Status: Ordered mirtazapine 15 mg oral tablet 1 tablet = 15 mg, By Mouth, Daily at bedtime, # 30 tablet, 0 Refills, Maintenance, 03/28/22 12:50:00 EDT, Tablet, [facility]/pharmacy #[id number], Partial fill upon patient request if the prescription is for a schedule II opioid drug., 163, cm, 03/28/22 7:47:00 ED... Start Date: 03/28/22 Status: Ordered MorPHINE Inj 2 mg, Injection, IV Push Slowly, Every 4 hours for 2 days, Hold for: RR < 10, BP < 90/50, PRNfor Pain , Severe, Routine, 03/28/22 8:48:00 EDT, Stop date 03/30/22 8:47:00 EDT Start Date: 03/28/22 Stop Date: 03/28/22 Status: Discontinued naltrexone 50 mg oral tablet 1 tablet = 50 mg, By Mouth, Daily, for 30 days, # 30 tablet, 0 Refills, Acute 04/10/22 13:43:00 EDT, 03/11/22 13:43:00 EDT, Tablet, [facility] 3, Partial fill upon patient request if the prescription is for a schedule II opioid drug., 163,... Start Date: 03/11/22 Stop Date: 04/10/22 Status: Ordered nicotine 14 mg/24 hr transdermal film, extended release 1 patch, Topically, Daily, for 30 days, # 30 patch, 0 Refills, Acute 04/10/22 13:47:00 EDT, 03/11/22 13:47:00 EDT, Patch, [facility], Partial fill upon patient request if [...] 03/28/22 12:51:00 EDT, Route to Pharmacy Electronically, [facility]/pharmacy #[id number], Partial fill upon patient request if the prescription is... Start Date: 03/28/22 Stop Date: 04/27/22 Status: Ordered Senna 8.6 mg oral tablet 17.2 mg, 2, tablet, By Mouth, Daily, for 7 days, # 14 tablet, Refills 0, Tot. Refills 0, Acute, 04/04/22 12:51:00 EDT, 03/28/22 12:51:00 EDT, Route to Pharmacy Electronically, [facility]/pharmacy #[id number] Tablet, Partial fill upon patient request if the prescri... Start Date: 03/28/22 Stop Date: 04/04/22 Status: Ordered thiamine 100 mg oral tablet 100 mg, 1, tablet, By Mouth, 2 times a day, # 60 tablet, Refills 0, Tot. Refills 0, Maintenance, 03/11/22 13:43:00 EDT, Route to Pharmacy Electronically, [facility], Partial fill upon patient request if [...] to oldest [Reference Range]: 1 2 3 4 Height 163 cm (03/28/22 7:47 AM) 163 cm (03/27/22 10:53 PM) 163 cm (03/27/22 7:15 PM) Weight 57.5 kg (03/26/22 2:28 AM) Oxygen Saturation [94-100 %] 97 % (03/28/22 7:47 AM) 100 % (03/27/22 10:53 PM) 100 % (03/27/22 7:15 PM) Pulse Rate [55-90 bpm] 76 bpm (03/28/22 7:47 AM) 78 bpm (03/27/22 10:53 PM) 75 bpm (03/27/22 7:15 PM) 75 bpm (03/27/22 7:15 PM) Body Mass Index [18.5-24.99] 21.64 (03/26/22 2:28 AM) Blood Pressure [90-138/55-84 mm Hg] 103/57mm Hg (03/28/22 7:47 AM) 110/60mm Hg (03/27/22 10:53 PM) 119/77mm Hg (03/27/22 7:15 PM) 119/77mm Hg (03/27/22 7:15 PM) Respiratory Rate [16-30 br/min] 18 br/min (03/28/22 10:33 AM) 18 br/min (03/28/22 8:08 AM) 18 br/min (03/28/22 7:47 AM) Temperature [96.8-100.4 DegF] 97.9 DegF (03/28/22 7:47 AM) 99.1 DegF (03/27/22 10:53 PM) 98.5 DegF (03/27/22 7:15 PM) 98.5 DegF (03/27/22 7:15 PM) Mode of Delivery (Oxygen) Room air (03/28/22 7:47 AM) Room air (03/27/22 10:53 PM) Room air (03/27/22 7:15 PM) Blood pressure sites Arm, right (03/28/22 7:47 AM) Arm, right (03/27/22 10:53 PM) Arm, right (03/27/22 7:15 PM) Temperature Route Oral (03/28/22 7:47 AM) Oral (03/27/22 10:53 PM) Oral (03/27/22 7:15 PM) Oral (03/27/22 7:15 PM) Dry Weight 57.5 kg (03/26/22 2:28 AM) Social History Social History Type Response Smoking Status 5-9 cigarettes (betw een 1/4 to 1/2 pack)/day in last 30 days entered on: 03/27/21 Sex
--- OUTSIDE RECORDS SUMMARY | 2023-03-03 11:24 | XMS_ITS | Continuity of Care Document ---
Author Name Unknown Organization [facility] Address [address] [place] [phone]- Care Team Providers Care Corporate Receptionist Name Role Phone Not on Staff, PCP Primary Care Physician Unavail able En[place] [facility] [place](s): 05/24/20 - 08/05/[address] [address]- [facility] Attending Physician: Lilly Thomas CNM [...] 7:44:00 EDT, Route to Pharmacy Electronically, [facility]/pharmacy#[id number], 160, cm, 04/08/20 0:23:00 EDT, Height, 68.5,... Start Date: 04/08/20 Status: Ordered Colace sodium 100 mg oral capsule 100 mg, 1, capsule, By Mouth, 2 times a day, PRN, # 60 capsule, Refills 1, Tot. Refills 1, Maintenance, for constipation, 04/08/20 7:44:00 EDT, Route to Pharmacy Electronically, [facility]/pharmacy #[id number], 160, cm, 04/08/20 0:23:00 EDT, Height, [...] Refills, Maintenance, 02/15/20 12:09:00 EDT, Tablet, [facility]/pharmacy #[id number], 163, cm, 02/15/20 8:51:00 EDT, Height, [...] Maintenance, 12/24/19 9:46:00 EST, Chew Tablet, [facility]/pharmacy #[id number], any gummy or chewable substitution is fine, 1 tablet Chew Daily, 163, cm, 12/24/19 9:24:00 EST, Height, 78.4, kg, 06/08/19 12:... Start Date: 12/24/19 Status: Ordered ProAir HFA 90 mcg/inh inhalation aerosol with adapter 2, puffs, Inhalation, Every 4 hours, PRN, # 8.5 Gm, Refills 1, Tot. Refills 1, Maintenance, 06/14/20 14:35:00 EDT, Aerosol, Route to Pharmacy Electronically, [id number], [facility]/pharmacy #[id number], 160, cm, 05/24/20 17:54:00 EDT, Hei... Start Date: 06/14/20 Status: Ordered Valtrex 500 mg oral tablet 500 mg, 1, tablet, By Mouth, 2 times a day, for 30 days, # 60 tablet, Refills 2, Tot. Refills 2, Acute 08/13/20 9:03:00 EDT, 05/15/20 9:03:00 EDT, Route to Pharmacy Electronically, [facility]/pharmacy #[id number], 163, cm, 03/14/20 9:02:00 EDT, Height, 72.2, kg, 0... Start Date: 05/15/20 Stop Date: 08/13/20 Status: Ordered Zofran 4 mg oral tablet 1 tablet = 4 mg, By Mouth, Every 6 hours, PRN Nausea & Vomiting, # 30 tablet, 0 Refills, Maintenance, 03/09/20 7:47:00 EDT, Tablet, [facility]/pharmacy #[id number], 163, cm, 02/15/20 8:51:00 EDT, Height, [...]
--- OUTSIDE RECORDS SUMMARY | 2023-03-03 11:24 | XMS_ITS | Continuity of Care Document ---
Author Name Unknown Organization [facility] Address [address] [place] [phone]- Care Team Providers Care Manager Food Safety Name Role Phone Not on Staff, PCP Primary Care Physician Unavail able Encounter [facility] Date(s): 11/28/20 - 12/28/[address] [address]- Allergies, Adverse Reactions, Alerts Substance Reaction Severity Status Seafood Active Immunizations Given and Recorded Vaccine Date Status Refusal Reason tetanus/diphtheria/pertussis, acel(Tdap) 02/01/20 Given Medications acetaminophen 325 mg oral tablet 650 mg, By Mouth, Every 4 hours, PRN, not to exceed 4000 mg/day, # 90 tablet, Refills 1, Tot. Refills 1, Maintenance, Pain , Mild, 04/08/20 7:44:00 EDT, Route to Pharmacy Electronically, [facility]/pharmacy#[id number], 160, cm, 04/08/20 0:23:00 EDT, Height, 68.5,... Start Date: 04/08/20 Status: Ordered Colace sodium 100 mg oral capsule 100 mg, 1, capsule, By Mouth, 2 times a day, PRN, # 60 capsule, Refills 1, Tot. Refills 1, Maintenance, for constipation, 04/08/20 7:44:00 EDT, Route to Pharmacy Electronically, [facility]/pharmacy #[id number], 160, cm, 04/08/20 0:23:00 EDT, Height, 68.5, kg, 05/0... Start Date: 04/08/20 Status: Ordered Diflucan 150 mg oral tablet = 150 mg, By Mouth, Every 48 hours, # 2 capsule, 0 Refills, Maintenance, 08/11/20 16:09:00 EDT, [facility]/pharmacy #[id number], 160, cm, 08/10/20 15:49:00 EDT, Height, 68.5, kg, 04/06/20 21:05:00 EDT, Dry Weight Start Date: 08/11/20 Status: Ordered Magdalena 30 mg oral tablet 1 tablet = 30 mg, By Mouth, Once, # 1 tablet, 1 Refills, Soft Stop, 05/05/20 17:56:00 EDT, Tablet, [facility]/pharmacy #[id number], 160, cm, 04/08/20 10:42:00 [...] 2 Refills, Maintenance, 02/15/20 12:09:00 EDT, Tablet, [facility]/pharmacy #[id number], 163, cm, 02/15/20 8:51:00 EDT, Height, 71.9, kg, 01/30/20 18:33:00 EST, Dry Weight Start Date: 02/15/20 Status: Ordered Fioricet oral capsule 2 capsule, By Mouth, Every 6 hours, PRN as needed, not to exceed 6 capsules/day, # 20 capsule, 0 Refills, Maintenance, 03/23/20 16:49:00 EDT, Capsule, [facility]/pharmacy #[id number], 2 capsule By Mouth Every 6 hours,PRN:as needed,Instr:not to exceed 6 capsules/da... Start Date: 03/23/20 Status: Ordered fluconazole 150 mg oral tablet 1 tablet = 150 mg, By Mouth, Once, For yeast infection, # 1 tablet, 0 Refills, Soft Stop, 12/13/20 12:14:00 EST, Tablet, [id number], 160, cm, 12/13/20 11:35:00 EST, Height, 65.1, kg, 12/13/2110:39:00 EST, Dry Weight Start Date: 12/13/20 Status: Ordered ibuprofen 800 mg oral tablet 800 mg, 1, tablet, By Mouth, Every 8 hours, PRN, not to exceed 3200 mg/day with food or milk, # 90 tablet, Refills 0, Tot. Refills 0, Maintenance, Pain , Moderate, 12/08/20 11:01:00 EST, Route to Pharmacy Electronically, [facility]/pharmacy #[id number], 160, cm,... Start Date: 12/08/20 Status: Ordered metroNIDAZOLE 0.75% topical gel 1 application, Vaginally, 2 times a day, # 45 Gm, 0 Refills, Maintenance, 08/10/20 16:16:00 EDT, [facility]/pharmacy #[id number], 1 application Vaginally 2 [...] Refills, Maintenance, 12/24/19 9:43:00 EST, REC Powder, [facility]/pharmacy #[id number], 17 Gm By Mouth 3 times a day,PRN:Constipation,Instr:dissolve in water before t... Start Date: 12/24/19 Status: Ordered Natachew Multivitamins oral tablet, chewable 1 tablet, Chew, Daily, # 30 tablet, 11 Refills, Maintenance, 12/24/19 9:46:00 EST, Chew Tablet, [facility]/pharmacy #[id number], any gummy or chewable substitution is fine, 1 tablet Chew Daily, 163, cm, 12/24/19 9:24:00 EST, Height, 78.4, kg, 06/08/19 12:... Start Date: 12/24/19 Status: Ordered ProAir HFA 90 mcg/inh inhalation aerosol with adapter 2, puffs, Inhalation, Every 4 hours, PRN, # 8.5 Gm, Refills 1, Tot. Refills 1, Maintenance, 06/14/20 14:35:00 EDT, Aerosol, Route to Pharmacy Electronically, [id number], [facility]/pharmacy #[id number], 160, cm, 05/24/20 17:54:00 EDT, Hei... Start Date: 06/14/20 Status: Ordered Zofran 4 mg oral tablet 1 tablet = 4 mg, By Mouth, Every 6 hours, PRN Nausea & Vomiting, # 30 tablet, 0 Refills, Maintenance, 03/09/20 7:47:00 EDT, Tablet, [facility]/pharmacy #[id number], 163, cm, 02/15/20 8:51:00 [...]
--- OUTSIDE RECORDS SUMMARY | 2023-03-03 11:24 | XMS_ITS | Continuity of Care Document ---
Author Name Unknown Organization [facility] ter Address [address] [place] [address]- Care Team Providers Care Hyperbaric Technician Name Role Phone Not on Staff, PCP Primary Care Physician Unavail able Encounter [facility] [place] Date(s): 03/04/22 - 03/05/[address] [address]- Encounter Diagnosis Alcohol intoxication(Final) - 03/05/22 Discharge Disposition: A-D/C Home Attending Physician: Elijah Phelps MD Admitting Physician: Elijah Phelps MD Referring Physician: Not on Staff, Referring [...] 1 Refills, Maintenance, 12/05/21 10:58:00 EST, Tablet, [facility] #[id number], Partial fill upon patient request [...] 12/05/21 10:58:00 EST, Route to Pharmacy Electronically, [facility]acy #[id number], Partial fill upon patient request if the prescription is for a schedule II opioid drug.... Start Date: 12/05/21 Status: Ordered Natachew Multivitamins oral tablet, chewable 1 tablet, Chew, Daily, # 30 tablet, 11 Refills, Maintenance, 12/24/19 9:46:00 EST, Chew Tablet, [facility]/pharmacy #[id number], any gummy or chewable substitution [...] 14:35:00 EDT, Aerosol, Route to Pharmacy Electronically, [id number], [facility]/pharmacy #[id number], 160, cm, 05/24/20 17:54:00 EDT, Hei... Start Date: 06/14/20 Status: Ordered sucralfate 1 gm oral tablet 1 Gm, 1, tablet, By Mouth, 3 times a day before meals and bedtime, # 120 tablet, Refills 0, Tot. Refills 0, Maintenance, 02/05/22 9:07:00 EST, Route to Pharmacy Electronically, [facility], Partial fill upon patient request if the prescri... Start Date: 02/05/22 Status: Ordered thiamine 100 mg oral tablet 100 mg, 1, tablet, By Mouth, 2 times a day, # 60 tablet, Refills 0, Tot. Refills 0, Maintenance, 12/05/21 10:58:00 EST, Route to Pharmacy Electronically, [facility]/pharmacy #[id number], Partial fill upon patientrequest if the prescription [...] 1 2 3 Oxygen Saturation [94-100 %] 98 % (03/05/22 5:30 AM) 100 % (03/05/22 2:22 AM) 99 % (03/05/22 1:03 AM) Pulse Rate [55-90 bpm] 87 bpm (03/05/22 8:19 AM) 88 bpm (03/05/22 5:30 AM) 111 bpm *H* (03/05/22 2:22 AM) Blood Pressure [90-138/55-84 mm Hg] 109/58mm Hg (03/05/22 8:19 AM) 104/73mm Hg (03/05/22 5:30 AM) 126/60mm Hg (03/05/22 2:22 AM) Respiratory Rate [16-30 br/min] 17 br/min (03/05/22 8:19 AM) 18 br/min (03/05/22 5:30 AM) 17 br/min (03/05/22 2:22 AM) Temperature [96.8-100.4 DegF] 98.0 DegF (03/05/22 5:30 AM) 98.1 DegF (03/05/22 1:03 AM) Mode of Delivery (Oxygen) Room air (03/05/22 8:19 AM) Room air (03/05/22 5:30 AM) Room air (03/05/22 2:22 AM) Blood pressure sites Arm, right (03/05/22 5:30 AM) Arm, right (03/05/22 1:03 AM) Arm, left (03/04/22 10:18 PM) Temperature Route Axillary (03/05/22 1:03 AM) Oral (03/04/22 10:18 PM) Social History Social History Type Response Smoking Status 5-9 cigarettes (betw een 1/4 to 1/2 pack)/day in last 30 days entered on: 03/27/21 Sex
--- OUTSIDE RECORDS SUMMARY | 2023-03-03 11:24 | XMS_ITS | Continuity of Care Document ---
Author Name Unknown Organization [facility] ter Address [address] [place] [id number]- Care Team Providers Care Bonding Supervisor Name Role Phone Not on Staff, PCP Primary Care Physician Unavail able Encounter [facility] [place] Date(s): 06/08/22 - 06/08/[address] [address]- Encounter Diagnosis Alcohol intoxication(Final) - 06/08/22 Discharge Disposition: A-D/C Home Attending Physician: Lucas [...] 04/15/22 12:00:00 EDT, Route to Pharmacy Electronically, [facility]/pharmacy #[id number], Partial fill upon patient request if the prescription is for a schedule II opioid drug.... Start Date: 04/15/22 Status: Ordered folic acid 1 mg oral tablet 1 mg, 1, tablet, By Mouth, Daily, # 30 tablet, Refills 0, Tot. Refills 0, Maintenance, 03/11/22 13:43:00 EDT, Route to Pharmacy Electronically, [facility], Partial fill upon patient request if the prescription is for a schedule II opioid... Start Date: 03/11/22 Stop Date: 04/10/22 Status: Ordered mirtazapine 15 mg oral tablet 1 tablet = 15 mg, By Mouth, Daily at bedtime, # 30 tablet, 0 Refills, Maintenance, 03/28/22 12:50:00 EDT, Tablet, [facility]/pharmacy #[id number], Partial fill upon patient [...] 0 Refills, Maintenance, 04/15/22 12:01:00 EDT, Capsule, [facility]/pharmacy #[id number], Partial fill upon patient request if the prescription is for a schedule II opioiddrug., 1 capsule By Mouth Daily, 168, cm, 04/15/22... Start Date: 04/15/22 Status: Ordered thiamine 100 mg oral tablet 100 mg, 1, tablet, By Mouth, 2 times a day, # 60 tablet, Refills 0, Tot. Refills 0, Maintenance, 03/11/22 13:43:00 EDT, Route to Pharmacy Electronically, [facility], Partial fill upon patient request [...] Range]: 1 2 Oxygen Saturation [94-100 %] 98 % (06/08/22 5:00 PM) 98 % (06/08/22 2:06 PM) Pulse Rate [55-90 bpm] 76 bpm (06/08/22 5:00 PM) 110 bpm *H* (06/08/22 2:06 PM) Blood Pressure [90-138/55-84 mm Hg] 125/ 76mm Hg (06/08/22 5:00 PM) 124/98mm Hg (06/08/22 2:06 PM) Respiratory Rate [16-30 br/min] 19 br/mi n (06/08/22 5:00 PM) Temperature [96.8-100.4 DegF] 98.4 DegF (06/08/22 5:00 PM) 98.7 DegF (06/08/22 2:06 PM) Mode of Delivery (Oxygen) Room air (06/08/22 5:00 PM) BiPAP (06/08/22 2:06 PM) Temperature Route Oral (06/08/22 5:00 PM) Oral (06/08/22 2:06 PM) Social History Social History Type Response Smoking Status 5-9 cigarettes (betw een 1/4 to 1/2 pack)/day in last 30 days entered on: 03/27/21 Sex
--- OUTSIDE RECORDS SUMMARY | 2023-03-03 11:24 | XMS_ITS | Continuity of Care Document ---
Author Name Unknown Organization [facility] Address [address] [place] [phone]- Care Team Providers Care Automatic Lathe Tender Name Role Phone Not on Staff, PCP Primary Care Physician Unavail able [place] [facility] [place] 12/13/19 [facility] [address] [address]- [facility] Attending Physician: Chelsy Reagan Admitting Physician: Chelsy Reagan Referring Physician: AdmtrChelsy Allergies, Adverse Reactions, Alerts Substance Reaction Severity Status Seafood Active Medications Breast Pump See Instructions, # 1 units, Maintenance, double electric breast pump dx: post- care, 03/18/15 3:07:11, Compound Start Date: 03/18/15 Status: Ordered multivitamin, Multivitamins oral tablet, chewable 1 tablet, Chew, Daily, # 30 tablet, 11 Refills, Maintenance, 12/03/19 13:21:00 EST, [facility]w Tablet, [id number], 1 tablet Chew Daily, 163, cm, 12/03/19 13:06:00 EST, Height, 78.4, kg, 06/08/19 12:10:00 EDT, Dry Weight Start Date: 12/03/19 Status: Ordered ondansetron 4 mg oral tablet, disintegrating 1 tablet = 4 mg, By Mouth, Daily, # 30 tablet, 1 Refills, Maintenance, 12/03/19 13:20:00 EST, [id number], 163, cm, 12/03/19 13:06:00 EST, Height, 78.4, kg, 06/08/19 12:10:00 EDT, Dry Weight Start Date: 12/03/19 Status: Ordered Problem List Condition Effective Dates Status Health Status Inform ant Anxiety(Confirmed) Active Marijuana use(Confirmed) Active History of depression(Confirmed) Active History of chlamydia(Confirmed) Active Flu --Declined vaccine(Confirmed) Active Social History Social History Type Response Tobacco Use: 4 or less cigar ettes(less than 1/4 pack)/day in last 30 days. Sex
--- OUTSIDE RECORDS SUMMARY | 2023-03-03 11:24 | XMS_ITS | Continuity of Care Document ---
Author Name Unknown Organization [facility] Address [address] [place] [address]- Care Team Providers Care Reimbursement Coordinator Name Role Phone Not on Staff, PCP Primary Care Physician Unavail able [place] [facility] [place]13[place]20 - 01/12/21 [facility] [address] [place] [address]- Attending Physician: Chelsy Reagan Admitting Physician: Chelsy [...] 04/08/20 7:44:00 EDT, Route to Pharmacy Electronically, [facility]/pharmacy#[id number], 160, cm, 04/08/20 0:23:00 EDT, Height, 68.5,... Start Date: 04/08/20 Status: Ordered Colace sodium 100 mg oral capsule 100 mg, 1, capsule, By Mouth, 2 times a day, PRN, # 60 capsule, Refills 1, Tot. Refills 1, Maintenance, for constipation, 04/08/20 7:44:00 EDT, Route to Pharmacy Electronically, [facility]/pharmacy #[id number], 160, cm, 04/08/20 0:23:00 [...] Refills, Soft Stop, 05/05/20 17:56:00 EDT, Tablet, [facility]/pharmacy #[id number], 160, cm, 04/08/20 10:42:00 [...] 2 Refills, Maintenance, 02/15/20 12:09:00 EDT, Tablet, [facility]/pharmacy #[id number], 163, cm, 02/15/20 8:51:00 [...] 12/08/20 11:01:00 EST, Route to Pharmacy Electronically, [facility]/pharmacy #[id number], 160, cm,... Start Date: 12/08/20 Status: Ordered metroNIDAZOLE 0.75% topical gel 1 application, Vaginally, 2 times a day, # 45 Gm, 0 Refills, Maintenance, 08/10/20 16:16:00 EDT, [facility]/pharmacy #[id number], 1 application Vaginally 2 [...] Refills, Maintenance, 12/24/19 9:43:00 EST, REC Powder, [facility]/pharmacy #[id number], 17 Gm By Mouth 3 times a day,PRN:Constipation,Instr:dissolve in water before t... Start Date: 12/24/19 Status: Ordered Natachew Multivitamins oral tablet, chewable 1 tablet, Chew, Daily, # 30 tablet, 11 Refills, Maintenance, 12/24/19 9:46:00 EST, Chew Tablet, [facility]/pharmacy #[id number], any gummy or chewable substitution is fine, 1 tablet Chew Daily, 163, cm, 12/24/19 9:24:00 EST, Height, 78.4, kg, 06/08/19 12:... Start Date: 12/24/19 Status: Ordered ProAir HFA 90 mcg/inh inhalation aerosol with adapter 2, puffs, Inhalation, Every 4 hours, PRN, # 8.5 Gm, Refills 1, Tot. Refills 1, Maintenance, 06/14/20 14:35:00 EDT, Aerosol, Route to Pharmacy Electronically, [id number], [facility]/pharmacy #[id number], 160, cm, 05/24/20 17:54:00 EDT, Hei... Start Date: 06/14/20 Status: Ordered Zofran 4 mg oral tablet 1 tablet = 4 mg, By Mouth, Every 6 hours, PRN Nausea & Vomiting, # 30 tablet, 0 Refills, Maintenance, 03/09/20 7:47:00 EDT, Tablet, [facility]/pharmacy #[id number], 163, cm, 02/15/20 8:51:00 [...]
--- OUTSIDE RECORDS SUMMARY | 2023-03-03 11:24 | XMS_ITS | Continuity of Care Document ---
Author Name Unknown Organization [facility] ter Address [address] [place] [id number]- Care Team Providers Care Millwright Name Role Phone Not on Staff, PCP Primary Care Physician Unavail able Encounter [facility] [place] Date(s): 08/10/20 - 08/17/[address] [address]- [facility] Attending Physician: Sunny BLACKBURN, Ashli Neal Allergies, Adverse Reactions, Alerts Substance Reaction Severity Status Seafood Active Immunizations Given and Recorded Vaccine Date Status Refusal Reason tetanus/diphtheria/pertussis, acel(Tdap) 02/01/20 Given Medications acetaminophen 325 mg oral tablet 650 mg, By Mouth, Every 4 hours, PRN, not to exceed 4000 mg/day, # 90 tablet, Refills 1, Tot. Refills 1, Maintenance, Pain , Mild, 04/08/20 7:44:00 EDT, Route to Pharmacy Electronically, [facility]/pharmacy#[id number], 160, cm, 04/08/20 0:23:00 EDT, Height, 68.5,... Start Date: 04/08/20 Status: Ordered Colace sodium 100 mg oral capsule 100 mg, 1, capsule, By Mouth, 2 times a day, PRN, # 60 capsule, Refills 1, Tot. Refills 1, Maintenance, for constipation, 04/08/20 7:44:00 EDT, Route to Pharmacy Electronically, [facility]/pharmacy #[id number], 160, cm, 04/08/20 0:23:00 EDT, Height, 68.5, kg, 05/0... Start Date: 04/08/20 Status: Ordered Diflucan 150 mg oral tablet = 150 mg, By Mouth, Every 48 hours, # 2 capsule, 0 Refills, Maintenance, 08/11/20 16:09:00 EDT, [facility]/pharmacy #[id number], 160, cm, 08/10/20 15:49:00 EDT, Height, 68.5, kg, 04/06/20 21:05:00 EDT, Dry Weight Start Date: 08/11/20 Status: Ordered Magdalena 30 mg oral tablet 1 tablet = 30 mg, By Mouth, Once, # 1 tablet, 1 Refills, Soft Stop, 05/05/20 17:56:00 EDT, Tablet, [facility]/pharmacy #[id number], 160, cm, 04/08/20 10:42:00 EDT, Height, [...] 2 Refills, Maintenance, 02/15/20 12:09:00 EDT, Tablet, [facility]/pharmacy #[id number], 163, cm, 02/15/20 8:51:00 EDT, Height, 71.9, kg, 01/30/20 18:33:00 EST, Dry Weight Start Date: 02/15/20 Status: Ordered Fioricet oral capsule 2 capsule, By Mouth, Every 6 hours, PRN as needed, not to exceed 6 capsules/day, # 20 capsule, 0 Refills, Maintenance, 03/23/20 16:49:00 EDT, Capsule, [facility]/pharmacy #[id number], 2 capsule By Mouth Every 6 hours,PRN:as needed,Instr:not to exceed 6 capsules/da... Start Date: 03/23/20 Status: Ordered ibuprofen 800 mg oral tablet 800 mg, 1, tablet, By Mouth, Every 8 hours, PRN, not to exceed 3200 mg/day with food or milk, # 90 tablet, Refills 1, Tot. Refills 1, Maintenance, Pain , Moderate, 04/08/20 7:45:00 EDT, Route to Pharmacy Electronically, [facility]/pharmacy #[id number], 160, cm, 0... Start Date: 04/08/20 Status: Ordered metroNIDAZOLE 0.75% topical gel 1 application, Vaginally, 2 times a day, # 45 Gm, 0 Refills, Maintenance, 08/10/20 16:16:00 EDT, [facility]/pharmacy #[id number], 1 application Vaginally 2 times a day,x5 days, 160, cm, 08/10/20 15:49:00 EDT, Height, 68.5, kg, 04/06/20 21:05:00 EDT, Dry Weight Start Date: 08/10/20 Stop Date: 08/15/20 Status: Ordered MiraLax oral powder for reconstitution = 17 Gm, By Mouth, 3 times a day, PRN Constipation, dissolve in water before taking, # 527 Gm, 0 Refills, Maintenance, 12/24/19 9:43:00 EST, REC Powder, [facility]/pharmacy #[id number], 17 Gm By Mouth 3 times a day,PRN:Constipation,Instr:dissolve in water before t... Start Date: 12/24/19 Status: Ordered Natachew Multivitamins oral tablet, chewable 1 tablet, Chew, Daily, # 30 tablet, 11 Refills, Maintenance, 12/24/19 9:46:00 EST, Chew Tablet, [facility]/pharmacy #[id number], any gummy or chewable substitution is fine, 1 tablet Chew Daily, 163, cm, 12/24/19 9:24:00 EST, Height, 78.4, kg, 06/08/19 12:... Start Date: 12/24/19 Status: Ordered ProAir HFA 90 mcg/inh inhalation aerosol with adapter 2, puffs, Inhalation, Every 4 hours, PRN, # 8.5 Gm, Refills 1, Tot. Refills 1, Maintenance, 06/14/20 14:35:00 EDT, Aerosol, Route to Pharmacy Electronically, [id number], [facility]/pharmacy #[id number], 160, cm, 05/24/20 17:54:00 EDT, Hei... [...]
--- OUTSIDE RECORDS SUMMARY | 2023-03-03 11:24 | XMS_ITS | Continuity of Care Document ---
Author Name Unknown Organization [facility] ter Address [address] [place] [id number]- Care Team Providers Care Unleavened Dough Mixer Name Role Phone Not on Staff, PCP Primary Care Physician Unavail able [place] [facility] [place]/09[place] - 04/15/[address] [address]- Encounter Diagnosis Pancreatitis(Final) - 04/09/22 Tachycardia(Final) - 04/09/22 Discharge Disposition: A-D/C AMA Attending Physician: Terrie Garcai MD Admitting Physician: Claudine Villanueva MD Referring Physician: Not on Staff, Referring [...] 04/15/22 12:00:00 EDT, Route to Pharmacy Electronically, [facility]/pharmacy #[id number], Partial fill upon patient request if the prescription is for a schedule II opioid drug.... Start Date: 04/15/22 Status: Ordered folic acid 1 mg oral tablet 1 mg, 1, tablet, By Mouth, Daily, # 30 tablet, Refills 0, Tot. Refills 0, Maintenance, 03/11/22 13:43:00 EDT, Route to Pharmacy Electronically, [facility], Partial fill upon patient request if the prescription is for a schedule II opioid... Start Date: 03/11/22 Stop Date: 04/10/22 Status: Ordered hydrOXYzine pamoate 50 mg oral capsule 1 capsule = 50 mg, By Mouth, 2 times a day, PRN as needed for anxiety, for 30 days, # 60 capsule, 0Refills, Acute 04/27/22 12:49:00 EDT, 03/28/22 12:49:00 EDT, Capsule, [facility]/pharmacy #[id number], Partial fill upon patient request if the prescription is for... Start Date: 03/28/22 Stop Date: 04/27/22 Status: Ordered mirtazapine 15 mg oral tablet 1 tablet = 15 mg, By Mouth, Daily at bedtime, # 30 tablet, 0 Refills, Maintenance, 03/28/22 12:50:00 EDT, Tablet, [facility]/pharmacy #[id number], Partial fill upon patient request if the prescription is for a schedule II opioid drug., 163, cm, 03/28/22 7:47:00 ED... Start Date: 03/28/22 Status: Ordered oxyCODONE 5 mg oral tablet 5 mg, 1, tablet, By Mouth, Every 6 hours, PRN, for 2 days, # 6 tablet, Refills 0, Tot. Refills 0, Acute 04/17/22 11:59:00 EDT, Pain , Moderate, 04/15/22 11:59:00 EDT, Route to Pharmacy Electronically, [facility]/pharmacy #[id number], Partial fill upon patient requ... Start Date: 04/15/22 Stop Date: 04/17/22 Status: Ordered oxyCODONE 5 mg oral tablet 5 mg, Tablet, By Mouth, Every 6 hours, PRN for Pain , Moderate, Routine, 04/14/22 17:39:00 EDT Start Date: 04/14/22 Stop Date: 04/15/22 Status: Discontinued pantoprazole 40 mg oral delayed release tablet = 40 mg, By Mouth, Daily, # 7 tablet, 0 Refills, Maintenance, 03/28/22 12:50:00 EDT, EC Tablet, 163, cm, 03/28/22 7:47:00 EDT, Height, 57.5, kg, 03/26/22 5:44:00 EDT, Dry Weight Start Date: 03/28/22 Stop Date: 04/04/22 Status: Ordered prochlorperazine 5 mg oral tablet 1 tablet = 5 mg, By Mouth, 3 times a day, PRN for nausea/vomiting, for 2 days, # 6 tablet, 0 Refills, Acute 04/17/22 12:03:00 EDT, 04/15/22 12:03:00 EDT, Tablet, [facility]/pharmacy #[id number], Partial fill uponpatient request if the prescription is for a schedu... Start Date: 04/15/22 Stop Date: 04/17/22 Status: Ordered pyridoxine 50 mg oral tablet 50 mg, 1, tablet, By Mouth, Daily, for 30 days, # 30 tablet, Refills 0, Tot. Refills 0, Acute 04/27/22 12:51:00 EDT, 03/28/22 12:51:00 EDT, Route to Pharmacy Electronically, [facility]/pharmacy #[id number], Partial fill upon patient request if the prescription is... Start Date: 03/28/22 Stop Date: 04/27/22 Status: Ordered Therapeutic Multiple Vitamins with Minerals oral capsule 1 capsule, By Mouth, Daily, # 30 capsule, 0 Refills, Maintenance, 04/15/22 12:01:00 EDT, Capsule, [facility]/pharmacy #[id number], Partial fill upon patient request if the prescription is for a schedule II opioiddrug., 1 capsule By Mouth Daily, 168, cm, 04/15/22... Start Date: 04/15/22 Status: Ordered thiamine 100 mg oral tablet 100 mg, 1, tablet, By Mouth, Daily, # 30 tablet, Refills 0, Tot. Refills 0, Acute 05/16/22 21:00:00EDT, 04/15/22 12:02:00 EDT, Route to Pharmacy Electronically, [facility]/pharmacy #[id number], Partial fill uponpatient request if the prescription is for a schedu... Start Date: 04/15/22 Stop Date: 05/16/22 Status: Ordered thiamine 100 mg oral tablet 100 mg, 1, tablet, By Mouth, 2 times a day, # 60 tablet, Refills 0, Tot. Refills 0, Maintenance, 03/11/22 13:43:00 EDT, Route to Pharmacy Electronically, [facility], Partial fill upon patient request if [...] oldest [Reference Range]: 1 2 3 Height 168 cm (04/15/22 11:07 AM) 168 cm (04/14/22 8:32 PM) 168 cm (04/13/22 8:02 PM) Weight 57 kg (04/09/22 12:01 PM) 68 kg (04/09/22 5:18 AM) 68 kg (04/09/22 3:39 AM) Oxygen Saturation [94-100 %] 98 % (04/15/22 11:07 AM) 100 % (04/15/22 5:00 AM) 96 % (04/14/22 8:32 PM) Pulse Rate [55-90 bpm] 62 bpm (04/15/22 11:07 AM) 57 bpm (04/15/22 5:00 AM) 57 bpm (04/14/22 8:32 PM) Body Mass Index [18.5-24.99] 20.2 (04/09/22 12:01 PM) 24.09 (04/09/22 5:18 AM) Blood Pressure [90-138/55-84 mm Hg] 106/57mm Hg (04/15/22 11:07 AM) 107/72mm Hg (04/15/22 5:00 AM) 99/60mm Hg (04/14/22 8:32 PM) Respiratory Rate [16-30 br/min] 18 br/min (04/15/22 11:07 AM) 14 br/min *L* (04/15/22 8:18 AM) 18 br/min (04/15/22 7:18 AM) Temperature [96.8-100.4 DegF] 98.3 DegF (04/15/22 11:07 AM) 98.5 DegF (04/15/22 5:00 AM) 98.6 DegF (04/14/22 8:32 PM) Mode of Delivery (Oxygen) Room air (04/15/22 11:07 AM) Room air (04/15/22 5:00 AM) Room air (04/14/22 8:32 PM) Blood pressure sites Arm, left (04/15/22 11:07 AM) Arm, right (04/15/22 5:00 AM) Arm, right (04/14/22 2:00 PM) Temperature Route Oral (04/15/22 11:07 AM) Oral (04/15/22 5:00 AM) Oral (04/14/22 8:32 PM) Dry Weight 57 kg (04/09/22 12:01 PM) 68 kg (04/09/22 5:18 AM) 68 kg (04/09/22 3:39 AM) Social History Social History Type Response Smoking Status 5-9 cigarettes (betw een 1/4 to 1/2 pack)/day in last 30 days entered on: 03/27/21 Sex
--- OUTSIDE RECORDS SUMMARY | 2023-03-03 11:24 | XMS_ITS | Continuity of Care Document ---
Author Name Unknown Organization [facility] ter Address [address] [place] [id number]- Care Team Providers Care Coagulating Drying Supervisor Name Role Phone Not on Staff, PCP Primary Care Physician Unavail able [place] [facility] [place]/22[place] - 02/22/[address] [address]- [facility] Discharge Disposition: A-D/C Home Attending Physician: Celeste Perez MD Admitting Physician: Celeste Perez MD Referring Physician: Celeste Perez MD Allergies, Adverse Reactions, Alerts Substance Reaction Severity Status Seafood Active Immunizations Given and Recorded Vaccine Date Status Refusal Reason tetanus/diphtheria/pertussis, acel(Tdap) 02/01/20 Given Medications Colace sodium 100 mg oral capsule 100 mg, 1, capsule, By Mouth, 2 times a day, PRN, # 60 capsule, Refills 1, Tot. Refills 1, Maintenance, for constipation, 12/24/19 9:43:00 EST, Route to Pharmacy Electronically, [facility]/pharmacy #[id number], 163, cm, 12/24/19 9:24:00 EST, [...] 2 Refills, Maintenance, 02/15/20 12:09:00 EDT, Tablet, [facility]/pharmacy #[id number], 163, cm, 02/15/20 8:51:00 EDT, Height, 71.9, kg, 01/30/20 18:33:00 EST, Dry Weight Start Date: 02/15/20 Status: Ordered MiraLax oral powder for reconstitution = 17 Gm, By Mouth, 3 times a day, PRN Constipation, dissolve in water before taking, # 527 Gm, 0 Refills, Maintenance, 12/24/19 9:43:00 EST, REC Powder, [facility]/pharmacy #[id number], 17 Gm By Mouth 3 times a day,PRN:Constipation,Instr:dissolve in water before t... Start Date: 12/24/19 Status: Ordered Natachew Multivitamins oral tablet, chewable 1 tablet, Chew, Daily, # 30 tablet, 11 Refills, Maintenance, 12/24/19 9:46:00 EST, Chew Tablet, [facility]/pharmacy #[id number], any gummy or [...] 02/15/20 9:03:00 EDT, Route to Pharmacy Electronically, [facility]/pharmacy #[id number], 163, cm, 02/15/20 8:51:00 EDT, Height, 71.9, kg, 0... Start Date: 02/15/20 Stop Date: 05/15/20 Status: Ordered Zofran 4 mg oral tablet 1 tablet = 4 mg, By Mouth, Every 6 hours, PRN Nausea & Vomiting, # 30 tablet, 0 Refills, Maintenance, 02/14/20 13:33:00 EDT, Tablet, [facility]/pharmacy #[id number], 163, cm, 02/01/20 11:27:00 EST, Height, 71.9, kg, 01/30/20 18:33:00 EST, Dry Weight Start Date: 02/14/20 Status: Ordered Problem List Condition Effective Dates [...] Most recent to oldest [Reference Range]: 1 Weight 73 kg (02/22/20 4:32 PM) Pulse Rate [55-90 bpm] 96 bpm *H* (02/22/20 4:38 PM) Blood Pressure [90-138/55-84 mm Hg] 123/ 69mm Hg (02/22/20 4:38 PM) Respiratory Rate [16-30 br/min] 18 br/mi n (02/22/20 4:38 PM) Temperature [96.8-100.4 DegF] 98.3 DegF (02/22/20 4:38 PM) Blood pressure sites Arm, right (02/22/20 4:38 PM) Temperature Route Oral (02/22/20 4:38 PM) Weight Obtained Via Standing scale (02/22/20 4:32 PM) Social History Social History Type Response Tobacco Use: 4 or less cigar ettes(less than 1/4 pack)/day in last 30 days. Sex
--- OUTSIDE RECORDS SUMMARY | 2023-03-03 11:24 | XMS_ITS | Continuity of Care Document ---
Author Name Unknown Organization [facility] ter Address [address] [place] [id number]- Care Team Providers Care Oceanographic Meteorologist Name Role Phone Not on Staff, PCP Primary Care Physician Unavail able Encounter [facility] [place] Date(s): 06/12/22 - 06/12/[address] [address]- Encounter Diagnosis Alcohol intoxication(Final) - 06/12/22 Discharge Disposition: A-D/C Home Attending Physician: Daniel Holley MD Admitting Physician: Daniel Holley MD Referring Physician: Not on Staff, Referring [...] 04/15/22 12:00:00 EDT, Route to Pharmacy Electronically, [facility]/pharmacy #[id number], Partial fill upon patient request if the prescription is for a schedule II opioid drug.... Start Date: 04/15/22 Status: Ordered folic acid 1 mg oral tablet 1 mg, 1, tablet, By Mouth, Daily, # 30 tablet, Refills 0, Tot. Refills 0, Maintenance, 03/11/22 13:43:00 EDT, Route to Pharmacy Electronically, [facility], Partial fill upon patient request if the prescription is for a schedule II opioid... Start Date: 03/11/22 Stop Date: 04/10/22 Status: Ordered mirtazapine 15 mg oral tablet 1 tablet = 15 mg, By Mouth, Daily at bedtime, # 30 tablet, 0 Refills, Maintenance, 03/28/22 12:50:00 EDT, Tablet, [facility]/pharmacy #[id number], Partial fill upon patient request [...] 0 Refills, Maintenance, 04/15/22 12:01:00 EDT, Capsule, [facility]/pharmacy #[id number], Partial fill upon patient request if the prescription is for a schedule II opioiddrug., 1 capsule By Mouth Daily, 168, cm, 04/15/22... Start Date: 04/15/22 Status: Ordered thiamine 100 mg oral tablet 100 mg, 1, tablet, By Mouth, 2 times a day, # 60 tablet, Refills 0, Tot. Refills 0, Maintenance, 03/11/22 13:43:00 EDT, Route to Pharmacy Electronically, [facility], Partial fill upon patient request [...] Range]: 1 2 Oxygen Saturation [94-100 %] 97 % (06/12/22 6:36 PM) 95 % (06/12/22 4:36 PM) Pulse Rate [55-90 bpm] 90 bpm (06/12/22 6:36 PM) 93 bpm *H* (06/12/22 4:36 PM) Blood Pressure [90-138/55-84 mm Hg] 112/ 85mm Hg (06/12/22 6:36 PM) 115/88mm Hg (06/12/22 4:36 PM) Respiratory Rate [16-30 br/min] 15 br/mi n *L* (06/12/22 6:36 PM) 14 br/min *L* (06/12/22 4:36 PM) Temperature [96.8-100.4 DegF] 98.1 DegF (06/12/22 6:36 PM) 98.0 DegF (06/12/22 4:36 PM) Mode of Delivery (Oxygen) Room air (06/12/22 6:36 PM) Room air (06/12/22 4:36 PM) Blood pressure sites Arm, left (06/12/22 6:36 PM) Arm, left (06/12/22 4:36 PM) Temperature Route Oral (06/12/22 6:36 PM) Oral (06/12/22 4:36 PM) Social History Social History Type Response Smoking Status 5-9 cigarettes (betw een 1/4 to 1/2 pack)/day in last 30 days entered on: 03/27/21 Sex
--- OUTSIDE RECORDS SUMMARY | 2023-03-03 11:25 | XMS_ITS | Continuity of Care Document ---
Author Name Unknown Organization [facility] Address [address] [place] [id number]- Care Team Providers Care Maintenance Planner Name Role Phone Not on Staff, PCP Primary Care Physician Unavail able Encounter [facility] Date(s): 12/13/20 - 01/12/[address] [address]- Allergies, Adverse Reactions, Alerts Substance Reaction Severity Status Seafood Active Immunizations Given and Recorded Vaccine Date Status Refusal Reason tetanus/diphtheria/pertussis, acel(Tdap) 02/01/20 Given Medications acetaminophen 325 mg oral tablet 650 mg, By Mouth, Every 4 hours, PRN, not to exceed 4000 mg/day, # 90 tablet, Refills 1, Tot. Refills 1, Maintenance, Pain , Mild, 04/08/20 7:44:00 EDT, Route to Pharmacy Electronically, [facility]/pharmacy#[id number], 160, cm, 04/08/20 0:23:00 EDT, Height, 68.5,... Start Date: 04/08/20 Status: Ordered Colace sodium 100 mg oral capsule 100 mg, 1, capsule, By Mouth, 2 times a day, PRN, # 60 capsule, Refills 1, Tot. Refills 1, Maintenance, for constipation, 04/08/20 7:44:00 EDT, Route to Pharmacy Electronically, [facility]/pharmacy #[id number], 160, cm, 04/08/20 0:23:00 EDT, Height, 68.5, kg, 05/0... Start Date: 04/08/20 Status: Ordered Diflucan 150 mg oral tablet = 150 mg, By Mouth, Every 48 hours, # 2 capsule, 0 Refills, Maintenance, 08/11/20 16:09:00 EDT, [facility]/pharmacy #[id number], 160, cm, 08/10/20 15:49:00 EDT, Height, 68.5, kg, 04/06/20 21:05:00 EDT, Dry Weight Start Date: 08/11/20 Status: Ordered Magdalena 30 mg oral tablet 1 tablet = 30 mg, By Mouth, Once, # 1 tablet, 1 Refills, Soft Stop, 05/05/20 17:56:00 EDT, Tablet, [facility]/pharmacy #[id number], 160, cm, 04/08/20 10:42:00 EDT, Height, [...] 2 Refills, Maintenance, 02/15/20 12:09:00 EDT, Tablet, [facility]/pharmacy #[id number], 163, cm, 02/15/20 8:51:00 EDT, Height, 71.9, kg, 01/30/20 18:33:00 EST, Dry Weight Start Date: 02/15/20 Status: Ordered Fioricet oral capsule 2 capsule, By Mouth, Every 6 hours, PRN as needed, not to exceed 6 capsules/day, # 20 capsule, 0 Refills, Maintenance, 03/23/20 16:49:00 EDT, Capsule, [facility]/pharmacy #[id number], 2 capsule By Mouth Every 6 hours,PRN:as needed,Instr:not to exceed 6 capsules/da... Start Date: 03/23/20 Status: Ordered fluconazole 150 mg oral tablet 1 tablet = 150 mg, By Mouth, Once, For yeast infection, # 1 tablet, 0 Refills, Soft Stop, 12/13/20 12:14:00 EST, Tablet, [facility]/pharmacy #[id number], 160, cm, 12/13/20 11:35:00 EST, Height, 65.1, kg, 12/13/2110:39:00 EST, Dry Weight Start Date: 12/13/20 Status: Ordered ibuprofen 800 mg oral tablet 800 mg, 1, tablet, By Mouth, Every 8 hours, PRN, not to exceed 3200 mg/day with food or milk, # 90 tablet, Refills 0, Tot. Refills 0, Maintenance, Pain , Moderate, 12/08/20 11:01:00 EST, [id number], 160, cm,... Start Date: 12/08/20 Status: Ordered metroNIDAZOLE 0.75% topical gel 1 application, Vaginally, 2 times a day, # 45 Gm, 0 Refills, Maintenance, 08/10/20 16:16:00 EDT, [facility]/pharmacy #[id number], 1 application Vaginally 2 times a day,x5 days, 160, cm, 08/10/20 15:49:00 EDT, Height, 68.5, kg, 04/06/20 21:05:00 EDT, Dry Weight Start Date: 08/10/20 Stop Date: 08/15/20 Status: Ordered MiraLax oral powder for reconstitution = 17 Gm, By Mouth, 3 times a day, PRN Constipation, dissolve in water before taking, # 527 Gm, 0 Refills, Maintenance, 12/24/19 9:43:00 EST, REC Powder, [facility]/pharmacy #[id number], 17 Gm By Mouth 3 times a day,PRN:Constipation,Instr:dissolve in water before t... Start Date: 12/24/19 Status: Ordered Natachew Multivitamins oral tablet, chewable 1 tablet, Chew, Daily, # 30 tablet, 11 Refills, Maintenance, 12/24/19 9:46:00 EST, Chew Tablet, [facility]/pharmacy #[id number], any gummy or chewable substitution is fine, 1 tablet Chew Daily, 163, cm, 12/24/19 9:24:00 EST, Height, 78.4, kg, 06/08/19 12:... Start Date: 12/24/19 Status: Ordered ProAir HFA 90 mcg/inh inhalation aerosol with adapter 2, puffs, Inhalation, Every 4 hours, PRN, # 8.5 Gm, Refills 1, Tot. Refills 1, Maintenance, 06/14/20 14:35:00 EDT, Aerosol, Route to Pharmacy Electronically, [id number], [facility]/pharmacy #[id number], 160, cm, 05/24/20 17:54:00 EDT, Hei... Start Date: 06/14/20 Status: Ordered Zofran 4 mg oral tablet 1 tablet = 4 mg, By Mouth, Every 6 hours, PRN Nausea & Vomiting, # 30 tablet, 0 Refills, Maintenance, 03/09/20 7:47:00 EDT, Tablet, [facility]/pharmacy #[id number], 163, cm, 02/15/20 8:51:00 EDT, Height, [...]
--- OUTSIDE RECORDS SUMMARY | 2023-03-03 11:25 | XMS_ITS | Continuity of Care Document ---
Author Name Unknown Organization [facility] Address [address] [place] [id number]- Care Team Providers Care Bag Shaker Name Role Phone Not on Staff, PCP Primary Care Physician Unavail able Encounter [facility] [place] Date(s): 02/01/20 - 05/11/[address] [address]- [facility] Attending Physician: Lilly Thomas CNM Admitting [...] Route to Pharmacy Electronically, [facility]/pharmacy#[id number], 160, cm, 04/08/20 0:23:00 EDT, Height, 68.5,... Start Date: 04/08/20 Status: Ordered Colace sodium 100 mg oral capsule 100 mg, 1, capsule, By Mouth, 2 times a day, PRN, # 60 capsule, Refills 1, Tot. Refills 1, Maintenance, for constipation, 04/08/20 7:44:00 EDT, Route to Pharmacy Electronically, [facility]/pharmacy #[id number], 160, cm, 04/08/20 0:23:00 EDT, Height, 68.5, kg, 05/0... Start Date: 04/08/20 Status: Ordered Magdalena 30 mg oral tablet 1 tablet = 30 mg, By Mouth, Once, # 1 tablet, 1 Refills, Soft Stop, 05/05/20 17:56:00 EDT, Tablet, [facility]/pharmacy #[id number], 160, cm, 04/08/20 10:42:00 EDT, Height, [...] 2 Refills, Maintenance, 02/15/20 12:09:00 EDT, Tablet, [facility]/pharmacy #[id number], 163, cm, 02/15/20 8:51:00 EDT, Height, 71.9, kg, 01/30/20 18:33:00 EST, Dry Weight Start Date: 02/15/20 Status: Ordered Fioricet oral capsule 2 capsule, By Mouth, Every 6 hours, PRN as needed, not to exceed 6 capsules/day, # 20 capsule, 0 Refills, Maintenance, 03/23/20 16:49:00 EDT, Capsule, [facility]/pharmacy #[id number], 2 capsule By Mouth Every 6 hours,PRN:as needed,Instr:not to exceed 6 capsules/da... Start Date: 03/23/20 Status: Ordered ibuprofen 800 mg oral tablet 800 mg, 1, tablet, By Mouth, Every 8 hours, PRN, not to exceed 3200 mg/day with food or milk, # 90 tablet, Refills 1, Tot. Refills 1, Maintenance, Pain , Moderate, 04/08/20 7:45:00 EDT, Route to Pharmacy Electronically, [facility]/pharmacy #[id number], 160, cm, 0... Start Date: 04/08/20 Status: Ordered MiraLax oral powder for reconstitution = 17 Gm, By Mouth, 3 times a day, PRN Constipation, dissolve in water before taking, # 527 Gm, 0 Refills, Maintenance, 12/24/19 9:43:00 EST, REC Powder, [facility]/pharmacy #[id number], 17 Gm By Mouth 3 times a day,PRN:Constipation,Instr:dissolve in water before t... Start Date: 12/24/19 Status: Ordered Natachew Multivitamins oral tablet, chewable 1 tablet, Chew, Daily, # 30 tablet, 11 Refills, Maintenance, 12/24/19 9:46:00 EST, Chew Tablet, [facility]/pharmacy #[id number], any gummy or chewable substitution is [...] 02/15/20 9:03:00 EDT, Route to Pharmacy Electronically, [facility]/pharmacy #[id number], 163, cm, 02/15/20 8:51:00 EDT, Height, 71.9, kg, 0... Start Date: 02/15/20 Stop Date: 05/15/20 Status: Ordered Valtrex 500 mg oral tablet 500 mg, 1, tablet, By Mouth, 2 times a day, for 30 days, # 60 tablet, Refills 2, Tot. Refills 2, Acute 08/13/20 9:03:00 EDT, 05/15/20 9:03:00 EDT, Route to Pharmacy Electronically, [facility]/pharmacy #[id number], 163, cm, 03/14/20 9:02:00 EDT, Height, 72.2, kg, 0... Start Date: 05/15/20 Stop Date: 08/13/20 Status: Ordered Zofran 4 mg oral tablet 1 tablet = 4 mg, By Mouth, Every 6 hours, PRN Nausea & Vomiting, # 30 tablet, 0 Refills, Maintenance, 03/09/20 7:47:00 EDT, Tablet, [facility]/pharmacy #[id number], 163, cm, 02/15/20 8:51:00 EDT, Height, [...]
--- OUTSIDE RECORDS SUMMARY | 2023-03-03 11:25 | XMS_ITS | Continuity of Care Document ---
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/pharmacy#[id number], 160, cm, 04/08/20 0:23:00 EDT, Height, 68.5,... Start Date: 04/08/20 Status: Ordered aluminum hydroxide-magnesium carbonate 95 mg-358 mg/15 mL oral suspension 30 mL, By Mouth, 3 times a day after meals and bedtime, PRN for indigestion, # 270 mL, 0 Refills, Acute 07/09/21 21:00:00 EDT, 07/07/21 9:00:00 EDT, Suspension, [facility]acy [id number], Partial fill upon patient request if the prescription is for a schedul... Start Date: 07/07/21 Stop Date: 07/09/21 Status: Ordered Ensure Plus Ensure Plus, See Instructions, # 90 each, Refills 2, Tot. Refills 2, Maintenance, Ensure Plus 3x/day during for poor weight gain, 02/01/20 13:13:00 EST, Supply Start Date: 02/01/20 Status: Ordered famotidine 10 mg oral tablet 1 tablet = 10 mg, By Mouth, 2 times a day, # 28 tablet, 0 Refills, Maintenance, 07/07/21 9:00:00 EDT, Tablet, [facility]/pharmacy #[id number], Partial fill upon patient request if [...] 12/08/20 11:01:00 EST, Route to Pharmacy Electronically, [facility]/pharmacy #[id number], 160, cm,... Start Date: 12/08/20 Status: [...] 14:35:00 EDT, Aerosol, Route to Pharmacy Electronically, [id number], [id number], 160, cm, 05/24/20 17:54:00 EDT, Hei... Start Date: 06/14/20 Status: Ordered simethicone 20 mg/0.3 mL oral suspension 0.3 mL = 20 mg, By Mouth, 3 times a day after meals and bedtime, # 30 mL, 0 Refills, Acute 07/09/2121:00:00 EDT, 07/07/21 9:00:00 EDT, [facility]/pharmacy #[id number], Partial fill upon patient request if the prescription is for a schedule II opioid drug., 163, c... 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 History of depression(Confirmed) Active History of delivery(Confirmed) Active History of influenza(Confirmed) Active Flu --Declined vaccine(Confirmed) Active Current smoker(Confirmed) Active Vital Signs Most recent to oldest [Reference Range]: 1 2 3 Height 163 cm (07/06/21 11:49 PM) 163 cm (07/06/21 8:39 AM) 163 cm (07/06/21 8:34 AM) Weight 64 kg (07/06/21 11:49 PM) 64 kg (07/06/21 8:39 AM) 64 kg (07/06/21 8:34 AM) Oxygen Saturation [94-100 %] 99 % (07/06/21 11:49 PM) 100 % (07/06/21 4:23 PM) 100 % (07/06/21 8:34 AM) Pulse Rate [55-90 bpm] 62 bpm (07/06/21 11:49 PM) 94 bpm *H* (07/06/21 4:23 PM) 104 bpm *H* (07/06/21 8:34 AM) Body Mass Index [18.5-24.99] 24.09 (07/06/21 11:49 PM) 24.09 (07/06/21 8:34 AM) Blood Pressure [90-138/55-84 mm Hg] 115/91mm Hg (07/06/21 11:49 PM) 137/75mm Hg (07/06/21 4:23 PM) 119/78mm Hg (07/06/21 8:34 AM) Respiratory Rate [16-30 br/min] 18 br/min (07/06/21 11:49 PM) 18 br/min (07/06/21 4:23 PM) 20 br/min (07/06/21 8:34 AM) Temperature [96.8-100.4 DegF] 98.5 DegF (07/06/21 4:23 PM) 98.8 DegF (07/06/21 8:34 AM) Mode of Delivery (Oxygen) Room air (07/06/21 11:49 PM) Room air (07/06/21 4:23 PM) Room air (07/06/21 8:34 AM) Blood pressure sites Arm, right (07/06/21 11:49 PM) Arm, right (07/06/21 4:23 PM) Arm, right (07/06/21 8:34 AM) Temperature Route Oral (07/06/21 4:23 PM) Oral (07/06/21 8:34 AM) Dry Weight 64 kg (07/06/21 11:49 PM) 64 kg (07/06/21 8:39 AM) 64 kg (07/06/21 8:34 AM) Dry Weight Obtained Via Patient/family s tated (07/06/21 8:34 AM) Social History Social History Type Response Smoking Status 5-9 cigarettes (betw een 1/4 to 1/2 pack)/day in last 30 days entered on: 03/27/21 Sex
--- OUTSIDE RECORDS SUMMARY | 2023-03-03 11:25 | XMS_ITS | Continuity of Care Document ---
Author Name Unknown Organization [facility] ter Address [address] [place] [id number]- Care Team Providers Care Restaurant Mgr Name Role Phone Not on Staff, PCP Primary Care Physician Unavail able Encounter [facility] [place] Date(s): 03/02/20 - 03/02/[address] [address]- [facility] Discharge Disposition: A-D/C Home Attending Physician: January Sutherland MD Admitting Physician: January Sutherland MD Referring Physician: January Sutherland MD Allergies, Adverse Reactions, Alerts Substance Reaction Severity Status Seafood Active Immunizations Given and Recorded Vaccine Date Status Refusal Reason tetanus/diphtheria/pertussis, acel(Tdap) 02/01/20 Given Medications Colace sodium 100 mg oral capsule 100 mg, 1, capsule, By Mouth, 2 times a day, PRN, # 60 capsule, Refills 1, Tot. Refills 1, Maintenance, for constipation, 12/24/19 9:43:00 EST, Route to Pharmacy Electronically, [facility]/pharmacy #[id number], 163, cm, 12/24/19 [...] 2 Refills, Maintenance, 02/15/20 12:09:00 EDT, Tablet, [facility]/pharmacy #[id number], 163, cm, 02/15/20 8:51:00 EDT, Height, 71.9, kg, 01/30/20 18:33:00 EST, Dry Weight Start Date: 02/15/20 Status: Ordered MiraLax oral powder for reconstitution = 17 Gm, By Mouth, 3 times a day, PRN Constipation, dissolve in water before taking, # 527 Gm, 0 Refills, Maintenance, 12/24/19 9:43:00 EST, REC Powder, [facility]/pharmacy #[id number], 17 Gm By Mouth 3 times a day,PRN:Constipation,Instr:dissolve in water before t... Start Date: 12/24/19 Status: Ordered Natachew Multivitamins oral tablet, chewable 1 tablet, Chew, Daily, # 30 tablet, 11 Refills, Maintenance, 12/24/19 9:46:00 EST, Chew Tablet, [facility]/pharmacy #[id number], any gummy or [...] 02/15/20 9:03:00 EDT, Route to Pharmacy Electronically, [facility]/pharmacy #[id number], 163, cm, 02/15/20 8:51:00 EDT, Height, 71.9, kg, 0... Start Date: 02/15/20 Stop Date: 05/15/20 Status: Ordered Zofran 4 mg oral tablet 1 tablet = 4 mg, By Mouth, Every 6 hours, PRN Nausea & Vomiting, # 30 tablet, 0 Refills, Maintenance, 02/14/20 13:33:00 EDT, Tablet, [facility]/pharmacy #[id number], 163, cm, 02/01/20 [...] Range]: 1 2 Oxygen Saturation [94-100 %] 99 % (03/02/20 9:19 AM) Blood Pressure [90-138/55-84 mm Hg] 121/ 70mm Hg (03/02/20 9:19 AM) Respiratory Rate [16-30 br/min] 18 br/mi n (03/02/20 11:23 AM) 18 br/min (03/02/20 9:19 AM) Temperature [96.8-100.4 DegF] 98.6 DegF (03/02/20 9:19 AM) Mode of Delivery (Oxygen) Room air (03/02/20 9:19 AM) Blood pressure sites Arm, right (03/02/20 9:19 AM) Temperature Route Oral (03/02/20 9:19 AM) Dry Weight 72.2 kg (03/02/20 9:07 AM) Dry Weight Obtained Via Standing scale (03/02/20 9:07 AM) Social History Social History Type Response Tobacco Use: 4 or less cigar ettes(less than 1/4 pack)/day in last 30 days. Sex
--- OUTSIDE RECORDS SUMMARY | 2023-03-03 11:25 | XMS_ITS | Continuity of Care Document ---
Author Name Unknown Organization [facility] ter Address [address] [place] [address]- Care Team Providers Care Slip Caster Name Role Phone Not on Staff, PCP Primary Care Physician Unavail able Encounter [facility] [place] Date(s): 05/02/22 - 05/07/[address] [address]- Encounter Diagnosis Alcohol ingestion(Final) - 05/01/22 Discharge Disposition: A-D/C AMA Attending Physician: Ritesh Snider DO Admitting Physician: José Manuel Abreu MD Referring Physician: Not on Staff, Referring MD Allergies, Adverse Reactions, Alerts Substance Reaction Severity Status Seafood Active Immunizations Given and Recorded Vaccine Date Status Refusal Reason influenza virus vaccine, inactivated 12/01/21 Give n tetanus/diphtheria/pertussis, acel(Tdap) 02/01/20 Given Medications Dilaudid Inj 1 mg, Injection, IV Push Slowly, Every 6 hours, PRN for Pain , Severe, Routine, 05/02/22 3:04:00 EDT Start Date: 05/02/22 Stop Date: 05/09/22 Status: Ordered folic acid 1 mg oral tablet 1 mg, 1, tablet, By Mouth, Daily, # 30 tablet, Refills 0, Tot. Refills 0, Maintenance, 04/15/22 12:00:00 EDT, Route to Pharmacy Electronically, [facility]/pharmacy #[id number], Partial fill upon patient request if the [...] 0 Refills, Maintenance, 03/28/22 12:50:00 EDT, Tablet, [facility]/pharmacy #[id number], Partial fill upon patient [...] 0 Refills, Maintenance, 04/15/22 12:01:00 EDT, Capsule, [id number], Partial fill upon patient request if the prescription is for a schedule II opioiddrug., 1 capsule By Mouth Daily, 168, cm, 04/15/22... Start Date: 04/15/22 Status: Ordered thiamine 100 mg oral tablet 100 mg, 1, tablet, By Mouth, Daily, # 30 tablet, Refills 0, Tot. Refills 0, Acute 05/16/22 21:00:00EDT, 04/15/22 12:02:00 EDT, Route to Pharmacy Electronically, [facility]/pharmacy #[id number], Partial fill uponpatient request if the prescription is for a schedu... Start Date: 04/15/22 Stop Date: 05/16/22 Status: Ordered thiamine 100 mg oral tablet 100 mg, 1, tablet, By Mouth, 2 times a day, # 60 tablet, Refills 0, Tot. Refills 0, Maintenance, 03/11/22 13:43:00 EDT, Route to Pharmacy Electronically, [facility], Partial fill upon patient request [...] Range]: 1 2 3 Height 163 cm (05/06/22 2:13 PM) 163 cm (05/06/22 4:23 AM) 163 cm (05/05/22 7:12 PM) Weight 51.6 kg (05/02/22 2:26 PM) 51.7 kg (05/02/22 1:46 PM) Oxygen Saturation [94-100 %] 100 % (05/07/22 5:04 AM) 100 % (05/07/22 2:00 AM) 100 % (05/06/22 8:00 PM) Pulse Rate [55-90 bpm] 65 bpm (05/07/22 5:04 AM) 60 bpm (05/07/22 3:41 AM) 64 bpm (05/07/22 2:00 AM) Body Mass Index [18.5-24.99] 19.46 (05/02/22 1:46 PM) Blood Pressure [90-138/55-84 mm Hg] 116/72mm Hg (05/07/22 5:04 AM) 102/68mm Hg (05/07/22 3:41 AM) 111/65mm Hg (05/07/22 2:00 AM) Respiratory Rate [16-30 br/min] 18 br/min (05/07/22 4:20 PM) 18 br/min (05/07/22 10:12 AM) 18 br/min (05/07/22 5:44 AM) Temperature [96.8-100.4 DegF] 97.2 DegF (05/07/22 3:41 AM) 97.3 DegF (05/06/22 8:00 PM) 98.1 DegF (05/06/22 2:13 PM) Liters per Minute 1 L/min (05/01/22 9:05 PM) 2 L/min (05/01/22 8:22 PM) 2 L/min (05/01/22 7:50 PM) Mode of Delivery (Oxygen) Room air (05/07/22 5:04 AM) Room air (05/07/22 2:00 AM) Room air (05/06/22 8:00 PM) Blood pressure sites Arm, left (05/07/22 5:04 AM) Arm, right (05/07/22 2:00 AM) Arm, right (05/07/22 12:29 AM) Temperature Route Axillary (05/07/22 3:41 AM) Axillary (05/06/22 8:00 PM) Oral (05/06/22 2:13 PM) Dry Weight 51.2 kg (05/02/22 1:46 PM) Weight Obtained Via Bed scale (05/02/22 1:46 PM) Social History Social History Type Response Smoking Status 5-9 cigarettes (betw een 1/4 to 1/2 pack)/day in last 30 days entered on: 03/27/21 Sex
--- OUTSIDE RECORDS SUMMARY | 2023-03-03 11:25 | XMS_ITS | Continuity of Care Document ---
Author Name Unknown Organization [facility] Address [address] [place] [address]- Care Team Providers Care Electronic Controls Repairer Supervisor Name Role Phone Not on Staff, PCP Primary Care Physician Unavail able Encounter [facility] [place] Date(s): 12/11/20 - 01/10/21 [facility] [address] [place] [address]- Attending Physician: Keo Cain MD Allergies, Adverse Reactions, Alerts Substance Reaction Severity Status Seafood Active Immunizations Given and Recorded Vaccine Date Status Refusal Reason tetanus/diphtheria/pertussis, acel(Tdap) 02/01/20 Given Medications acetaminophen 325 mg oral tablet 650 mg, By Mouth, Every 4 hours, PRN, not to exceed 4000 mg/day, # 90 tablet, Refills 1, Tot. Refills 1, Maintenance, Pain , Mild, 04/08/20 7:44:00 EDT, Route to Pharmacy Electronically, [facility]/pharmacy#[id number], 160, cm, 04/08/20 0:23:00 EDT, Height, 68.5,... Start Date: 04/08/20 Status: Ordered Colace sodium 100 mg oral capsule 100 mg, 1, capsule, By Mouth, 2 times a day, PRN, # 60 capsule, Refills 1, Tot. Refills 1, Maintenance, for constipation, 04/08/20 7:44:00 EDT, Route to Pharmacy Electronically, [facility]/pharmacy #[id number], 160, cm, 04/08/20 0:23:00 EDT, Height, 68.5, kg, 05/0... Start Date: 04/08/20 Status: Ordered Diflucan 150 mg oral tablet = 150 mg, By Mouth, Every 48 hours, # 2 capsule, 0 Refills, Maintenance, 08/11/20 16:09:00 EDT, [facility]/pharmacy #[id number], 160, cm, 08/10/20 15:49:00 EDT, Height, [...] 2 Refills, Maintenance, 02/15/20 12:09:00 EDT, Tablet, [id number], 163, cm, 02/15/20 [...] 12/08/20 11:01:00 EST, Route to Pharmacy Electronically, [facility]/pharmacy #[id number], 160, cm,... Start Date: 12/08/20 Status: Ordered metroNIDAZOLE 0.75% topical gel 1 application, Vaginally, 2 times a day, # 45 Gm, 0 Refills, Maintenance, 08/10/20 16:16:00 EDT, [facility]/pharmacy #[id number], 1 application Vaginally 2 times a day,x5 days, 160, cm, 08/10/20 15:49:00 EDT, Height, 68.5, kg, 04/06/20 21:05:00 EDT, Dry Weight Start Date: 08/10/20 Stop Date: 08/15/20 Status: Ordered MiraLax oral powder for reconstitution = 17 Gm, By Mouth, 3 times a day, PRN Constipation, dissolve in water before taking, # 527 Gm, 0 Refills, Maintenance, 12/24/19 9:43:00 EST, REC Powder, [facility]/pharmacy #[id number], 17 Gm By Mouth 3 times a day,PRN:Constipation,Instr:dissolve in water before t... Start Date: 12/24/19 Status: Ordered Natachew Multivitamins oral tablet, chewable 1 tablet, Chew, Daily, # 30 tablet, 11 Refills, Maintenance, 12/24/19 9:46:00 EST, Chew Tablet, [facility]/pharmacy #[id number], any gummy or chewable substitution is fine, 1 tablet Chew Daily, 163, cm, 12/24/19 9:24:00 EST, Height, 78.4, kg, 06/08/19 12:... Start Date: 12/24/19 Status: Ordered ProAir HFA 90 mcg/inh inhalation aerosol with adapter 2, puffs, Inhalation, Every 4 hours, PRN, # 8.5 Gm, Refills 1, Tot. Refills 1, Maintenance, 06/14/20 14:35:00 EDT, Aerosol, Route to Pharmacy Electronically, [id number], [facility]/pharmacy #[id number], 160, cm, 05/24/20 17:54:00 EDT, Hei... Start Date: 06/14/20 Status: Ordered Zofran 4 mg oral tablet 1 tablet = 4 mg, By Mouth, Every 6 hours, PRN Nausea & Vomiting, # 30 tablet, 0 Refills, Maintenance, 03/09/20 7:47:00 EDT, Tablet, [facility]/pharmacy #[id number], 163, cm, 02/15/20 8:51:00 EDT, Height, [...] oldest [Reference Range]: 1 Height 160 cm (12/11/20 4:07 PM) Mode of Delivery (Oxygen) Room air (12/11/20 4:07 PM) Blood pressure sites Arm, right (12/11/20 4:07 PM) Temperature Route Temporal (12/11/20 4:07 PM) Weight Obtained Via Standing scale (12/11/20 4:07 PM) Dry Weight Obtained Via Standing scale (12/11/20 4:07 PM) Social History Social History Type Response Tobacco Use: 4 or less cigar ettes(less than 1/4 pack)/day in last 30 days. Sex
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
--- OUTSIDE RECORDS SUMMARY | 2023-03-03 11:25 | XMS_ITS | Continuity of Care Document ---
Author Name Unknown Organization [facility] ter Address [address] [place] [id number]- Care Team Providers Care Non Categorical Preschool Teacher Name Role Phone Not on Staff, PCP Primary Care Physician Unavail able [place] [facility] [place] 11/12/21 - 11/13/[address] [address]- Encounter Diagnosis Alcohol intoxication(Final) - 11/12/21 COVID-19(Final) - 11/13/21 Discharge Disposition: A-D/C Home Attending Physician: Oscar Franco MD Admitting Physician: Oscar Franco MD Referring Physician: Not on Staff, Referring [...] 04/08/20 7:44:00 EDT, Route to Pharmacy Electronically, [facility]/pharmacy#[id number], 160, cm, 04/08/20 0:23:00 EDT, [...] 0 Refills, Maintenance, 07/07/21 9:00:00 EDT, Tablet, [facility]/pharmacy #[id number], Partial fill upon [...] 12/08/20 11:01:00 EST, Route to Pharmacy Electronically, [facility]/pharmacy #[id number], 160, cm,... Start [...] 14:35:00 EDT, Aerosol, Route to Pharmacy Electronically, [id number], [facility]/pharmacy #[id number], 160, cm, 05/24/20 [...] 1 2 3 Oxygen Saturation [94-100 %] 100 % (11/13/21 7:45 AM) 99 % (11/13/21 4:25 AM) 98 % (12/14/21 3:01 AM) Pulse Rate [55-90 bpm] 100 bpm *H* (11/13/21 7:45 AM) 92 bpm *H* (11/13/21 4:25 AM) 94 bpm *H* (11/13/21 3:01 AM) Blood Pressure [90-138/55-84 mm Hg] 118/78mm Hg (11/13/21 8:07 AM) 114/78mm Hg (11/13/21 4:25 AM) 118/78mm Hg (11/13/21 3:01 AM) Respiratory Rate [16-30 br/min] 18 br/min (11/13/21 4:25 AM) 18 br/min (11/13/21 3:01 AM) 18 br/min (11/13/21 1:45 AM) Temperature [96.8-100.4 DegF] 98.4 DegF (11/13/21 1:45 AM) 97.9 DegF (11/13/21 12:25 AM) 98.1 DegF (11/12/21 10:36 PM) Mode of Delivery (Oxygen) Room air (11/13/21 4:25 AM) Room air (11/13/21 3:01 AM) Room air (11/13/21 1:45 AM) Blood pressure sites Arm, left (11/13/21 8:07 AM) Temperature Route Oral (11/13/21 12:25 AM) Oral (11/12/21 10:36 PM) Social History Social History Type Response Smoking Status 5-9 cigarettes (betw een 1/4 to 1/2 pack)/day in last 30 days entered on: 03/27/21 Sex
--- OUTSIDE RECORDS SUMMARY | 2023-03-03 11:25 | XMS_ITS | Continuity of Care Document ---
Author Name Unknown Organization [facility] Address [address] [place] [address]- Care Team Providers Care Golf Player Assistant Name Role Phone Not on Staff, PCP Primary Care Physician Unavail able Encounter [facility] Date(s): 07/17/21 - 08/16/[address] [address]- Allergies, Adverse Reactions, Alerts Substance Reaction Severity Status Seafood Active Immunizations Given and Recorded Vaccine Date Status Refusal Reason tetanus/diphtheria/pertussis, acel(Tdap) 02/01/20 Given Medications acetaminophen 325 mg oral tablet 650 mg, By Mouth, Every 4 hours, PRN, not to exceed 4000 mg/day, # 90 tablet, Refills 1, Tot. Refills 1, Maintenance, Pain , Mild, 04/08/20 7:44:00 EDT, Route to Pharmacy Electronically, [facility]/pharmacy#[id number], 160, cm, 04/08/20 0:23:00 EDT, Height, [...] 0 Refills, Maintenance, 07/07/21 9:00:00 EDT, Tablet, [facility]/pharmacy #[id number], Partial fill upon patient request [...] 12/08/20 11:01:00 EST, Route to Pharmacy Electronically, [facility]/pharmacy #[id number], 160, cm,... Start Date: 12/08/20 Status: Ordered Natachew Multivitamins oral tablet, chewable 1 tablet, Chew, Daily, # 30 tablet, 11 Refills, Maintenance, 12/24/19 9:46:00 EST, Chew Tablet, [facility]/pharmacy #[id number], any gummy or chewable substitution is fine, 1 tablet Chew Daily, 163, cm, 12/24/19 9:24:00 EST, Height, 78.4, kg, 06/08/19 12:... Start Date: 12/24/19 Status: Ordered ProAir HFA 90 mcg/inh inhalation aerosol with adapter 2, puffs, Inhalation, Every 4 hours, PRN, # 8.5 Gm, Refills 1, Tot. Refills 1, Maintenance, 06/14/20 14:35:00 EDT, Aerosol, Route to Pharmacy Electronically, [id number], [facility]/pharmacy #[id number], 160, cm, 05/24/20 17:54:00 EDT, [...]
--- OUTSIDE RECORDS SUMMARY | 2023-03-03 11:25 | XMS_ITS | Continuity of Care Document ---
Author Name Unknown Organization [facility] Address [address] [place] [address]- Care Team Providers Care Shock Absorption Floor Layer Name Role Phone Not on Staff, PCP Primary Care Physician Unavail able Encounter [facility] [place] Date(s): 12/13/20 - 12/20/20 [facility] [address] [place] [address]- Attending Physician: Keo Cain MD Allergies, Adverse [...] 04/08/20 7:44:00 EDT, Route to Pharmacy Electronically, [facility]/pharmacy#[id number], 160, cm, 04/08/20 0:23:00 EDT, Height, 68.5,... Start Date: 04/08/20 Status: Ordered Colace sodium 100 mg oral capsule 100 mg, 1, capsule, By Mouth, 2 times a day, PRN, # 60 capsule, Refills 1, Tot. Refills 1, Maintenance, for constipation, 04/08/20 7:44:00 EDT, Route to Pharmacy Electronically, [facility]/pharmacy #[id number], 160, cm, 04/08/20 0:23:00 EDT, Height, 68.5, kg, 05/0... Start Date: 04/08/20 Status: Ordered Diflucan 150 mg oral tablet = 150 mg, By Mouth, Every 48 hours, # 2 capsule, 0 Refills, Maintenance, 08/11/20 16:09:00 EDT, [facility]/pharmacy #[id number], 160, cm, 08/10/20 15:49:00 EDT, Height, [...] 12/08/20 11:01:00 EST, Route to Pharmacy Electronically, [facility]/pharmacy #[id number], 160, cm,... Start Date: 12/08/20 Status: Ordered metroNIDAZOLE 0.75% topical gel 1 application, Vaginally, 2 times a day, # 45 Gm, 0 Refills, Maintenance, 08/10/20 16:16:00 EDT, [facility]/pharmacy #[id number], 1 application Vaginally 2 times a day,x5 days, 160, cm, 08/10/20 15:49:00 EDT, Height, 68.5, kg, 04/06/20 21:05:00 EDT, Dry Weight Start Date: 08/10/20 Stop Date: 08/15/20 Status: Ordered MiraLax oral powder for reconstitution = 17 Gm, By Mouth, 3 times a day, PRN Constipation, dissolve in water before taking, # 527 Gm, 0 Refills, Maintenance, 12/24/19 9:43:00 EST, REC Powder, [facility]/pharmacy #[id number], 17 Gm By Mouth 3 times a day,PRN:Constipation,Instr:dissolve in water before t... Start Date: 12/24/19 Status: Ordered Natachew Multivitamins oral tablet, chewable 1 tablet, Chew, Daily, # 30 tablet, 11 Refills, Maintenance, 12/24/19 9:46:00 EST, Chew Tablet, [facility]/pharmacy #[id number], any gummy or chewable substitution is fine, 1 tablet Chew Daily, 163, cm, 12/24/19 9:24:00 EST, Height, 78.4, kg, 06/08/19 12:... Start Date: 12/24/19 Status: Ordered ProAir HFA 90 mcg/inh inhalation aerosol with adapter 2, puffs, Inhalation, Every 4 hours, PRN, # 8.5 Gm, Refills 1, Tot. Refills 1, Maintenance, 06/14/20 14:35:00 EDT, Aerosol, Route to Pharmacy Electronically, [id number], [facility]/pharmacy #[id number], 160, cm, 05/24/20 17:54:00 EDT, Hei... Start Date: 06/14/20 Status: Ordered Zofran 4 mg oral tablet 1 tablet = 4 mg, By Mouth, Every 6 hours, PRN Nausea & Vomiting, # 30 tablet, 0 Refills, Maintenance, 03/09/20 7:47:00 EDT, Tablet, [facility]/pharmacy #[id number], 163, cm, 02/15/20 8:51:00 EDT, Height, [...] oldest [Reference Range]: 1 Height 160 cm (12/13/20 11:35 AM) Weight 65.1 kg (12/13/20 11:35 AM) Oxygen Saturation [94-100 %] 100 % (12/13/20 11:35 AM) Pulse Rate [55-90 bpm] 87 bpm (12/13/20 11:35 AM) Body Mass Index [18.5-24.99] 25.43 *H* (12/13/20 11:35 AM) Blood Pressure [90-138/55-84 mm Hg] 116/ 69mm Hg (12/13/20 11:35 AM) Respiratory Rate [16-30 br/min] 16 br/mi n (12/13/20 11:35 AM) Temperature [96.8-100.4 DegF] 97.5 DegF (12/13/20 11:35 AM) Mode of Delivery (Oxygen) Room air (12/13/20 11:35 AM) Blood pressure sites Arm, right (12/13/20 11:35 AM) Temperature Route Temporal (12/13/20 11:35 AM) Dry Weight 65.1 kg (12/13/20 11:35 AM) Weight Obtained Via Standing scale (12/13/20 11:35 AM) Dry Weight Obtained Via Standing scale (12/13/20 11:35 AM) Social History Social History Type Response Tobacco Use: 4 or less cigar ettes(less than 1/4 pack)/day in last 30 days. Sex
--- OUTSIDE RECORDS SUMMARY | 2023-03-03 11:25 | XMS_ITS | Continuity of Care Document ---
Author Name Unknown Organization [facility] Address [address] [place] [id number]- Care Team Providers Care Biztalk Developer Name Role Phone Not on Staff, PCP Primary Care Physician Unavail able Encounter [facility] Date(s): 11/14/20 - 12/14/[address] [address]- Allergies, Adverse Reactions, Alerts Substance Reaction Severity Status Seafood Active Immunizations Given and Recorded Vaccine Date Status Refusal Reason tetanus/diphtheria/pertussis, acel(Tdap) 02/01/20 Given Medications acetaminophen 325 mg oral tablet 650 mg, By Mouth, Every 4 hours, PRN, not to exceed 4000 mg/day, # 90 tablet, Refills 1, Tot. Refills 1, Maintenance, Pain , Mild, 04/08/20 7:44:00 EDT, Route to Pharmacy Electronically, [facility]/pharmacy#[id number], 160, cm, 04/08/20 0:23:00 EDT, Height, 68.5,... Start Date: 04/08/20 Status: Ordered Colace sodium 100 mg oral capsule 100 mg, 1, capsule, By Mouth, 2 times a day, PRN, # 60 capsule, Refills 1, Tot. Refills 1, Maintenance, for constipation, 04/08/20 7:44:00 EDT, Route to Pharmacy Electronically, [facility]/pharmacy #[id number], 160, cm, 04/08/20 [...] Refills, Soft Stop, 05/05/20 17:56:00 EDT, Tablet, [facility]/pharmacy #[id number], 160, cm, 04/08/20 [...] 2 Refills, Maintenance, 02/15/20 12:09:00 EDT, Tablet, [facility]/pharmacy #[id number], 163, cm, 02/15/20 [...] 6 capsules/da... Start Date: 03/23/20 Status: Ordered Flagyl 500 mg oral tablet 1 tablet = 500 mg, By Mouth, Every 12 hours, for 7 days, # 14 tablet, 0 Refills, Acute 12/15/20 11:02:00 EST, 12/08/20 11:02:00 EST, Tablet, [facility]/pharmacy #[id number], Partial fill upon patient request if the prescription is for a schedule II opioid drug., 1... Start Date: 12/08/20 Stop Date: 12/15/20 Status: Ordered fluconazole 150 mg oral tablet 1 tablet = 150 mg, By Mouth, Once, For yeast infection, # 1 tablet, 0 Refills, Soft Stop, 12/13/20 12:14:00 EST, Tablet, [facility]/pharmacy #[id number], 160, cm, 12/13/20 11:35:00 EST, Height, 65.1, kg, 12/13/2110:39:00 EST, Dry Weight Start Date: 12/13/20 Status: Ordered ibuprofen 800 mg oral tablet 800 mg, 1, tablet, By Mouth, Every 8 hours, PRN, not to exceed 3200 mg/day with food or milk, # 90 tablet, Refills 0, Tot. Refills 0, Maintenance, Pain , Moderate, 12/08/20 11:01:00 EST, Route to Pharmacy Electronically, [facility]/pharmacy #[id number], 160, cm,... Start Date: 12/08/20 Status: Ordered metroNIDAZOLE 0.75% topical gel 1 application, Vaginally, 2 times a day, # 45 Gm, 0 Refills, Maintenance, 08/10/20 16:16:00 EDT, [facility]/pharmacy #[id number], 1 application Vaginally [...] Refills, Maintenance, 12/24/19 9:43:00 EST, REC Powder, [facility]/pharmacy #[id number], 17 Gm By Mouth 3 times a day,PRN:Constipation,Instr:dissolve in water before t... Start Date: 12/24/19 Status: Ordered Natachew Multivitamins oral tablet, chewable 1 tablet, Chew, Daily, # 30 tablet, 11 Refills, Maintenance, 12/24/19 9:46:00 EST, Chew Tablet, [facility]/pharmacy #[id number], any gummy or chewable substitution is fine, 1 tablet Chew Daily, 163, cm, 12/24/19 9:24:00 EST, Height, 78.4, kg, 06/08/19 12:... Start Date: 12/24/19 Status: Ordered ProAir HFA 90 mcg/inh inhalation aerosol with adapter 2, puffs, Inhalation, Every 4 hours, PRN, # 8.5 Gm, Refills 1, Tot. Refills 1, Maintenance, 06/14/20 14:35:00 EDT, Aerosol, Route to Pharmacy Electronically, [id number], [facility]/pharmacy #[id number], 160, cm, 05/24/20 17:54:00 EDT, Hei... Start Date: 06/14/20 Status: Ordered Zofran 4 mg oral tablet 1 tablet = 4 mg, By Mouth, Every 6 hours, PRN Nausea & Vomiting, # 30 tablet, 0 Refills, Maintenance, 03/09/20 7:47:00 EDT, Tablet, [facility]/pharmacy #[id number], 163, cm, 02/15/20 [...]
--- OUTSIDE RECORDS SUMMARY | 2023-03-03 11:25 | XMS_ITS | Continuity of Care Document ---
Author Name Unknown Organization [facility] Address [address] [place] [address]- Care Team Providers Care Account Review Specialist Name Role Phone Not on Staff, PCP Primary Care Physician Unavail able [place] [facility] [place](s): 04/04/21 - 05/19/[address] [address]- Attending Physician: Not on Staff, Attending MD [...] 04/08/20 7:44:00 EDT, Route to Pharmacy Electronically, [facility]/pharmacy#[id number], 160, cm, 04/08/20 0:23:00 EDT, [...] 12/08/20 11:01:00 EST, Route to Pharmacy Electronically, [facility]/pharmacy #[id number], 160, cm,... Start Date: 12/08/20 Status: Ordered Natachew Multivitamins oral tablet, chewable 1 tablet, Chew, Daily, # 30 tablet, 11 Refills, Maintenance, 12/24/19 9:46:00 EST, Chew Tablet, [facility]/pharmacy #[id number], any gummy or chewable substitution is fine, 1 tablet Chew Daily, 163, cm, 12/24/19 9:24:00 EST, Height, 78.4, kg, 06/08/19 12:... Start Date: 12/24/19 Status: Ordered ProAir HFA 90 mcg/inh inhalation aerosol with adapter 2, puffs, Inhalation, Every 4 hours, PRN, # 8.5 Gm, Refills 1, Tot. Refills 1, Maintenance, 06/14/20 14:35:00 EDT, Aerosol, Route to Pharmacy Electronically, [id number], [facility]/pharmacy #[id number], 160, cm, 05/24/20 17:54:00 [...]
--- OUTSIDE RECORDS SUMMARY | 2023-03-03 11:25 | XMS_ITS | Continuity of Care Document ---
Author Name Unknown Organization [facility] ter Address [address] [place] [id number]- Care Team Providers Care Procedures Analyst Name Role Phone Not on Staff, PCP Primary Care Physician Unavail able [place] [facility] [place]s): 03/05/22 - 03/11/[address] [address] Discharge Disposition: A-D/C Home Attending Physician: Malinda BLACKBURN, Fatoumata Lew Admitting Physician: Dain Trejo MD Referring Physician: Not on Staff, Referring [...] 13:43:00 EDT, Route to Pharmacy Electronically, [facility], Partial fill upon patient request if the prescription is for a schedule II opioid... Start Date: 03/11/22 Stop Date: 04/10/22 Status: Ordered hydrOXYzine pamoate 25 mg oral capsule 1 capsule = 25 mg, By Mouth, Every 6 hours, PRN Anxiety, for 30 days, # 60 capsule, 0 Refills, Acute 04/10/22 13:43:00 EDT, 03/11/22 13:43:00 EDT, Capsule, [facility], Partial fill uponpatient request if the prescription is for a schedu... Start Date: 03/11/22 Stop Date: 04/10/22 Status: Ordered ibuprofen 400 mg oral tablet 400 mg, Tablet, By Mouth, 3 times a day, PRN for Pain , Mild, Routine, 03/06/22 16:49:00 EDT Start Date: 03/06/22 Stop Date: 03/20/22 Status: Ordered naltrexone 50 mg oral tablet 1 tablet = 50 mg, By Mouth, Daily, for 30 days, # 30 tablet, 0 Refills, Acute 04/10/22 13:43:00 EDT, 03/11/22 13:43:00 EDT, Tablet, [facility], Partial fill upon patient request if the prescription is for a schedule II opioid drug., 163,... Start Date: 03/11/22 Stop Date: 04/10/22 Status: Ordered nicotine 14 mg/24 hr transdermal film, extended release 1 patch, Topically, Daily, for 30 days, # 30 patch, 0 Refills, Acute 04/10/22 13:47:00 EDT, 03/11/22 13:47:00 EDT, Patch, [facility], Partial fill upon patient request if the prescription is for a schedule II opioid drug., 1 patch Topica... Start Date: 03/11/22 Stop Date: 04/10/22 Status: Ordered thiamine 100 mg oral tablet 100 mg, 1, tablet, By Mouth, 2 times a day, # 60 tablet, Refills 0, Tot. Refills 0, Maintenance, 03/11/22 13:43:00 EDT, Route to Pharmacy Electronically, [facility], Partial fill upon patient request [...] Exam Date Time Procedure Performing Provider Status 03/05/22 7:23 PM Hand Min 3 Views Right Pieter Graham ; Afua (Verified) Notes: (Hand Min 3 Views Right) Reason For Exam: Pain RESULT: Hand Min 3 Views Right Wrist Comp Min 3 Views Right, Hand Min 3 Views Right Hx of Present Illness: family called for ETOH, initially cooperatiave but got aggressive in ambulance, versed 2mg IV 16:37, 20 LAC, 300ml NS; Reason: Pain; Clinical Question(s): Fracture COMPARISON: None. FINDINGS: No fracture or dislocation. No arthritic change. Normal carpal configuration. Intact radial and ulnar styloid processes. Normal soft tissues. IMPRESSION: No radiographic evidence of acute abnormality in the right hand/wrist. WSN: [id number] Ordering Physician: Oscar Dobbins Dictated By: Nataly Hightower MD Dictated Date/Time: 03/05/22 7:28 pm Reviewed By: Nataly Hightower MD Signed By: Nataly Hightower MD Signed Date/Time: 03/05/22 7:28 pm Transcribed By: BORIS Transcribed Date/Time: 03/05/22 7:26 pm * Exam Date Time Procedure Performing Provider Status 03/05/22 7:23 PM Wrist Comp Min 3 Views Right Gladys Pieter; Auth (Verified) Notes: (Wrist Comp Min 3 Views Right) Reason For Exam: Pain RESULT: Wrist Comp Min 3 Views Right Wrist Comp Min 3 Views Right, Hand Min 3 Views Right Hx of Present Illness: family called for ETOH, initially cooperatiave but got aggressive in ambulance, versed 2mg IV 16:37, 20 LAC, 300ml NS; Reason: Pain; Clinical Question(s): Fracture COMPARISON: None. FINDINGS: No fracture or dislocation. No arthritic change. Normal carpal configuration. Intact radial and ulnar styloid processes. Normal soft tissues. IMPRESSION: No radiographic evidence of acute abnormality in the right hand/wrist. WSN: [id number] Ordering Physician: Oscar Dobbins Dictated By: Nataly Hightower MD Dictated Date/Time: 03/05/22 7:28 pm Reviewed By: Natlay Hightower MD Signed By: Nataly Hightower MD Signed Date/Time: 03/05/22 7:28 pm Transcribed By: BORIS Transcribed Date/Time: 03/05/22 7:26 pm Vital Signs Most recent to oldest [Reference Range]: 1 2 3 Height 163 cm (03/10/22 7:59 PM) 163 cm (03/10/22 3:22 PM) 163 cm (03/10/22 11:17 AM) Weight 54.8 kg (03/06/22 12:48 PM) Oxygen Saturation [94-100 %] 99 % (03/11/22 11:00 AM) 100 % (03/11/22 7:00 AM) 100 % (03/10/22 11:00 PM) Pulse Rate [55-90 bpm] 62 bpm (03/11/22 11:00 AM) 61 bpm (03/11/22 7:00 AM) 60 bpm (03/10/22 11:00 PM) Blood Pressure [90-138/55-84 mm Hg] 90/40mm Hg (03/11/22 11:00 AM) 96/54mm Hg (03/11/22 7:00 AM) 101/80mm Hg (03/10/22 11:00 PM) Respiratory Rate [16-30 br/min] 18 br/min (03/11/22 12:06 PM) 18 br/min (03/11/22 11:00 AM) 18 br/min (03/11/22 7:00 AM) Temperature [96.8-100.4 DegF] 98.6 DegF (03/11/22 11:00 AM) 98 DegF (03/11/22 7:00 AM) 97.4 DegF (03/10/22 11:00 PM) Mode of Delivery (Oxygen) Room air (03/11/22 11:00 AM) Room air (03/11/22 7:00 AM) Room air (03/10/22 11:00 PM) Blood pressure sites Arm, right (03/11/22 11:00 AM) Arm, right (03/11/22 7:00 AM) Arm, right (03/10/22 7:59 PM) Temperature Route Oral (03/11/22 11:00 AM) Oral (03/11/22 7:00 AM) Oral (03/10/22 11:00 PM) Weight Obtained Via Bed scale (03/06/22 12:48 PM) Social History Social History Type Response Smoking Status 5-9 cigarettes (betw een 1/4 to 1/2 pack)/day in last 30 days entered on: 03/27/21 Sex
--- OUTSIDE RECORDS SUMMARY | 2023-03-03 11:25 | XMS_ITS | Continuity of Care Document ---
Author Name Unknown Organization [facility] Address [address] [place] [address]- Care Team Providers Care Brush Maker Name Role Phone Not on Staff, PCP Primary Care Physician Unavail able Encounter [facility] Date(s): 12/04/21 - 01/25/[address] [address] Attending Physician: Not on Staff, Attending MD [...] 1 Refills, Maintenance, 12/05/21 10:58:00 EST, Tablet, [id number], Partial fill upon patient request if the prescription is for a schedule II opioid drug., 163, cm, 12/04/21 14:52:00... Start Date: 12/05/21 Status: Ordered acetaminophen 325 mg oral tablet 650 mg, By Mouth, Every 4 hours, PRN, not to exceed 4000 mg/day, # 90 tablet, Refills 1, Tot. Refills 1, Maintenance, Pain , Mild, 04/08/20 7:44:00 EDT, Route to Pharmacy Electronically, [id number], 160, cm, 04/08/20 0:23:00 EDT, Height, 68.5,... Start Date: 04/08/20 Status: Ordered Bela 0.35 mg oral tablet 1 tablet = 0.35 mg, By Mouth, Daily, # 28 tablet, 12 Refills, Maintenance, 12/05/21 13:10:00 EST, Tablet, [facility] #[id number], Partial fill upon patient [...] 12/05/21 10:58:00 EST, Route to Pharmacy Electronically, [id number], Partial fill upon patient request if the prescription is for a schedule II opioid drug.... Start Date: 12/05/21 Status: Ordered ibuprofen 800 mg oral tablet 800 mg, 1, tablet, By Mouth, Every 8 hours, PRN, not to exceed 3200 mg/day with food or milk, # 90 tablet, Refills 0, Tot. Refills 0, Maintenance, Pain , Moderate, 12/08/20 11:01:00 EST, Route to Pharmacy Electronically, [facility]/pharmacy #[id number], 160, cm,... Start Date: 12/08/20 Status: Ordered Nat[place]w Multivitamins oral tablet, chewable 1 tablet, Chew, Daily, # 30 tablet, 11 Refills, Maintenance, 12/24/19 9:46:00 EST, Chew Tablet, [facility]/pharmacy #[id number], any gummy or chewable substitution is fine, 1 tablet Chew Daily, 163, cm, 12/24/19 9:24:00 EST, Height, 78.4, kg, 06/08/19 12:... Start Date: 12/24/19 Status: Ordered Nicotine 2 mg gum 1 each = 2 mg, Chew, Every 2 hours, PRN as needed for smoking cessation, # 40 each, 1 Refills, Maintenance, 12/05/21 10:59:00 EST, Gum, [facility]/pharmacy #[id number], Partial fill upon patient request if the prescription is for a schedule II opioid drug., 163, c... Start Date: 12/05/21 Status: Ordered ProAir HFA 90 mcg/inh inhalation aerosol with adapter 2, puffs, Inhalation, Every 4 hours, PRN, # 8.5 Gm, Refills 1, Tot. Refills 1, Maintenance, 06/14/20 14:35:00 EDT, Aerosol, Route to Pharmacy Electronically, [id number], [facility]/pharmacy #[id number], 160, cm, 05/24/20 17:54:00 EDT, Hei... Start Date: 06/14/20 Status: Ordered thiamine 100 mg oral tablet 100 mg, 1, tablet, By Mouth, 2 times a day, # 60 tablet, Refills 0, Tot. Refills 0, Maintenance, 12/05/21 10:58:00 EST, Route to Pharmacy Electronically, [facility]acy #[id number], Partial fill upon patientrequest if the prescription is for a schedule II op... Start Date: 12/05/21 Status: Ordered Valtrex 500 mg oral tablet See Instructions, 1 tablet By Mouth 2 times a day 3 days for outbreak, # 30 tablet, Refills 1, Tot.Refills 1, Maintenance, 12/05/21 13:10:00 EST, Instructions Replace Required Details, Route to Pharmacy Electronically, [facility][id number], Partial ruddy... Start Date: 12/05/21 Status: Ordered Problem List [...]
--- OUTSIDE RECORDS SUMMARY | 2023-03-03 11:25 | XMS_ITS | Continuity of Care Document ---
Author Name Unknown Organization [facility] Address [address] [place] [address]- Care Team Providers Care Research Hydraulic Engineer Name Role Phone Not on Staff, PCP Primary Care Physician Unavail able [place] [facility] [place] - 05/01/[address] [address]- Attending Physician: Chelsy Reagan Admitting Physician: Chelsy Reagan Referring Physician: [id number] Allergies, Adverse Reactions, Alerts Substance Reaction Severity Status Seafood Active Immunizations Given and Recorded Vaccine Date Status Refusal Reason influenza virus vaccine, inactivated 12/01/21 Give n tetanus/diphtheria/pertussis, acel(Tdap) 02/01/20 Given Medications folic acid 1 mg oral tablet 1 mg, 1, tablet, By Mouth, Daily, # 30 tablet, Refills 0, Tot. Refills 0, Maintenance, 04/15/22 12:00:00 EDT, Route to Pharmacy Electronically, [id number], Partial fill upon patient request if the prescription is for a schedule II opioid drug.... Start Date: 04/15/22 Status: Ordered folic acid 1 mg oral tablet 1 mg, 1, tablet, By Mouth, Daily, # 30 tablet, Refills 0, Tot. Refills 0, Maintenance, 03/11/22 13:43:00 EDT, Route to Pharmacy Electronically, [facility], Partial fill upon patient request if the prescription is for a schedule II opioid... Start Date: 03/11/22 Stop Date: 04/10/22 Status: Ordered mirtazapine 15 mg oral tablet 1 tablet = 15 mg, By Mouth, Daily at bedtime, # 30 tablet, 0 Refills, Maintenance, 03/28/22 12:50:00 EDT, Tablet, [facility] #[id number], Partial fill upon patient request if [...] 0 Refills, Maintenance, 04/15/22 12:01:00 EDT, Capsule, [facility] #[id number], Partial fill upon patient request if the prescription is for a schedule II opioiddrug., 1 capsule By Mouth Daily, 168, cm, 04/15/22... Start Date: 04/15/22 Status: Ordered thiamine 100 mg oral tablet 100 mg, 1, tablet, By Mouth, Daily, # 30 tablet, Refills 0, Tot. Refills 0, Acute 05/16/22 21:00:00EDT, 04/15/22 12:02:00 EDT, Route to Pharmacy Electronically, [facility] #[id number], Partial fill uponpatient request if the prescription is for a schedu... Start Date: 04/15/22 Stop Date: 05/16/22 Status: Ordered thiamine 100 mg oral tablet 100 mg, 1, tablet, By Mouth, 2 times a day, # 60 tablet, Refills 0, Tot. Refills 0, Maintenance, 03/11/22 13:43:00 EDT, Route to Pharmacy Electronically, [facility], Partial fill upon patient [...]
--- OUTSIDE RECORDS SUMMARY | 2023-03-03 11:25 | XMS_ITS | Continuity of Care Document ---
Author Name Unknown Organization [facility] Address [address] [place] [address]- Care Team Providers Care Size Painter Name Role Phone Beto ZHU, Joycelyn M Primary Care Physician [phone] Encounter [facility] [place] Date(s): 10/06/19 - 11/26/[address] [address] [facility] Attending Physician: Not on Staff, Attending MD Allergies, Adverse Reactions, Alerts Substance Reaction Severity Status Seafood Active Medications albuterol CFC free 90 mcg/inh inhalation aerosol 2, puffs, Inhalation, Every 4 hours, PRN, # 1 each, Refills 0, Tot. Refills 0, Maintenance, 08/24/18 16:29:27 EDT, Aerosol, Route to Pharmacy Electronically, [id number], [facility] [id number], Compound Start Date: 08/24/18 Status: Ordered Aviane 100 mcg-20 mcg oral tablet 1 tablet, By Mouth, Daily, # 84 tablet, 0 Refills, Maintenance, 05/24/19 13:07:15 EDT, Tablet, 1 tablet By Mouth Daily Start Date: 05/24/19 Status: Ordered Breast Pump See Instructions, # 1 units, Maintenance, double electric breast pump dx: post- care, 03/18/15 3:07:11, Compound Start Date: 03/18/15 Status: Ordered cetirizine 10 mg oral tablet 1 tablet = 10 mg, By Mouth, Daily, # 30 tablet, 0 Refills, Maintenance, 04/13/19 11:08:10 EDT, Tablet Start Date: 04/13/19 Status: Ordered Fioricet oral capsule 1 capsule, By Mouth, Every 4 hours, PRN as needed, # 30 capsule, 1 Refills, Maintenance, 10/23/19 13:12:35 EST, Capsule, 1 capsule By Mouth Every 4 hours,PRN:as needed Start Date: 10/23/19 Status: Ordered ketoconazole 2% topical shampoo See Instructions, 1 application Topically to areas of rash. Leave on for 5 minutes before washing off. Repeat for 3 consecutive days., # 120 mL, 0 Refills, Soft Stop, 04/13/19 11:08:05 EDT, Shampoo, 1 application Topically to areas of rash. Leave on f... Start Date: 04/13/19 Status: Ordered Mapap 500 mg oral tablet 2 tablet = 1,000 mg, By Mouth, Every 6 hours, 0 Refills, Maintenance, 07/02/16 11:22:45 Start Date: 07/02/16 Status: Ordered multivitamin, Multivitamins oral tablet, chewable 1 tablet, Chew, Daily, # 30 tablet, 8 Refills, Maintenance, 11/18/19 14:25:00 EST, Chew Tablet, [id number], 1 tablet Chew Daily, 163, cm, 11/02/19 12:16:00 EST, Height, 78.4, kg, 06/08/19 12:10:00 EDT, Dry Weight Start Date: 11/18/19 Status: Ordered [place] 0.65% nasal spray 2 sprays, Nares, Both, 4 times a day, # 1 each, 0 Refills, Maintenance, 08/24/18 16:29:33 EDT, 2 sprays Nares, Both 4 times a day Start Date: 08/24/18 Status: Ordered Multivitamin Gummies Multivitamin Gummies, 2 gummies, By Mouth, Daily, # 60 each, Refills 11, Tot. Refills 11, Maintenance, 11/19/19 8:00:00 EST, Compound, 163, cm, 11/02/19 12:16:00 EST, Height, 78.4, kg, 06/08/19 12:10:00 EDT, Dry Weight Start Date: 11/19/19 Status: Ordered Multivitamins with Folic Acid 1 mg oral tablet 1 tablet, By Mouth, Daily, # 90 tablet, 2 Refills, Maintenance, 08/23/19 13:40:55 EDT, Tablet, 1 tablet By Mouth Daily Start Date: 08/23/19 Status: Ordered progesterone 200 mg oral capsule 1 capsule = 200 mg, By Mouth, Daily, for 30 days, to be placed in the vagina every night from 16 weeks until 36 weeks., # 30 capsule, 8 Refills, Acute 07/29/20 12:48:53 EDT, 11/02/19 12:48:53 EST, Capsule, 163, cm, 11/02/19 12:16:53 EST, Height, 78.4,... Start Date: 11/02/19 Stop Date: 07/29/20 Status: Ordered Tylenol 325 mg oral tablet 650 mg, 2, tablet, By Mouth, 4 times a day, PRN, for 14 days, # 50 tablet, Refills 1, Tot. Refills 1, Acute 11/30/19 12:50:41 EST, for pain, 11/02/19 12:50:41 EST, Route to Pharmacy Electronically, ED [id number], [facility] Start Date: 11/02/19 Stop Date: 11/30/19 Status: Ordered Unisom 25 mg oral tablet See Instructions, 1/2 tablet By Mouth Three times a day with 1 tab of Vit B6, # 45 tablet, 0 Refills, Acute 08/24/20 13:42:00 EDT, 08/23/19 13:44:00 EDT Start Date: 08/23/19 Stop Date: 08/24/20 Status: Ordered Unisom 25 mg oral tablet See Instructions, 1/2 tablet By Mouth Three times a day with 1 tab of Vit B6, # 45 tablet, 0 Refills, Acute 02/17/20 14:32:00 EDT, 11/18/19 13:42:00 EST, [id number], 163, cm, 11/02/19 12:16:00 EST, Height, 78.4, kg, 06/08/19 12:10:00 EDT, Dry... Start Date: 11/18/19 Stop Date: 02/17/20 Status: Ordered Vitamin B6 25 mg oral tablet 1 tablet = 25 mg, By Mouth, 3 times a day, Take 1 tab with 1/2 tab unisom three times a day, # 90 tablet, 0 Refills, Acute 08/23/20 13:44:00 EDT, 08/23/19 13:44:00 EDT Start Date: 08/23/19 Stop Date: 08/23/20 Status: Ordered Vitamin B6 25 mg oral tablet 1 tablet = 25 mg, By Mouth, 3 times a day, Take 1 tab with 1/2 tab unisom three times a day, # 90 tablet, 0 Refills, Acute 01/20/20 14:33:00 EST, 11/18/19 13:44:00 EST, [facility]acy [facility][id number], 163, cm, 11/02/19 12:16:00 EST, Height, 78.4, kg, 06/08/19 12:... Start Date: 11/18/19 Stop Date: 01/20/20 Status: Ordered Problem List Condition Effective Dates Status Health Status Inform ant Anxiety(Confirmed) Active Marijuana use(Confirmed) Active History of depression(Confirmed) Active History of chlamydia(Confirmed) Active Flu --Declined vaccine(Confirmed) Active Social History Social History Type Response Tobacco Use: 4 or less cigar ettes(less than 1/4 pack)/day in last 30 days. Sex
--- OUTSIDE RECORDS SUMMARY | 2023-03-03 11:25 | XMS_ITS | Continuity of Care Document ---
Author Name Unknown Organization [facility] Address [address] [place] [address]- Care Team Providers Care Adjunct Phlebotomy Instructor Name Role Phone Not on Staff, PCP Primary Care Physician Unavail able Encounter [facility] [place] Date(s[place] 11/27/19 - 01/02/20 [facility] [address] [address]- [facility] Attending Physician: Sravanthi Valente DO Admitting Physician: Sravanthi Valente DO Referring Physician: Lilly Thomas CNM Allergies, Adverse Reactions, [...] 12/24/19 9:43:00 EST, Route to Pharmacy Electronically, [facility]/pharmacy #[id number], 163, cm, 12/24/19 9:24:00 EST, Height, 78.4, kg, 07/0... Start Date: 12/24/19 Status: Ordered MiraLax oral powder for reconstitution = 17 Gm, By Mouth, 3 times a day, PRN Constipation, dissolve in water before taking, # 527 Gm, 0 Refills, Maintenance, 12/24/19 9:43:00 EST, REC Powder, [facility]/pharmacy #[id number], 17 Gm By Mouth 3 times a day,PRN:Constipation,Instr:dissolve in water before t... Start Date: 12/24/19 Status: Ordered Natachew Multivitamins oral tablet, chewable 1 tablet, Chew, Daily, # 30 tablet, 11 Refills, Maintenance, 12/24/19 9:46:00 EST, Chew Tablet, [facility]/pharmacy #[id number], any gummy or chewable substitution is fine, 1 tablet Chew Daily, 163, cm, 12/24/19 9:24:00 EST, Height, 78.4, kg, 06/08/19 12:... Start Date: 12/24/19 Status: Ordered Reglan 10 mg oral tablet 1 tablet = 10 mg, By Mouth, 4 times a day, PRN Nausea & Vomiting, for 21 days, # 84 tablet, 0 Refills, Acute 01/14/20 9:42:00 EST, 12/24/19 9:42:00 EST, Tablet, [facility]/pharmacy #[id number], 163, cm, 12/24/19 9:24:00 EST, Height, 78.4, kg, 06/08/19 12:10:00 EDT... Start Date: 12/24/19 Stop Date: 01/14/20 Status: Ordered Zofran 4 mg oral tablet 1 tablet = 4 mg, By Mouth, Every 4 hours, PRN as needed for nausea/vomiting, # 30 tablet, 1 Refills, Maintenance, 12/24/19 9:44:00 EST, Tablet, [facility]/pharmacy #[id number], 163, cm, 12/24/19 9:24:00 EST, Height, 78.4, kg, 06/08/19 12:10:00 EDT, Dry Weight Start Date: 12/24/19 Status: Ordered Problem List Condition Effective Dates Status Health Status Inform ant Anxiety(Confirmed) Active Constipation during (Confirmed) Active Marijuana use(Confirmed) Active History of depression(Confirmed) Active Flu --Declined vaccine(Confirmed) Active Poor weight gain of (Confirmed) Active Nausea/vomiting in (Confirmed) Active Social History Social History Type Response Tobacco Use: 4 or less cigar ettes(less than 1/4 pack)/day in last 30 days. Sex
--- OUTSIDE RECORDS SUMMARY | 2023-03-03 11:25 | XMS_ITS | Continuity of Care Document ---
Author Name Unknown Organization [facility] Address [address] [place] [id number]- Care Team Providers Care Drawing Frame Tender Name Role Phone Not on Staff, PCP Primary Care Physician Unavail able Encounter [facility] Date(s): 02/08/21 - 03/10/[address] [address]- Allergies, Adverse Reactions, Alerts Substance Reaction Severity Status Seafood Active Immunizations Given and Recorded Vaccine Date Status Refusal Reason tetanus/diphtheria/pertussis, acel(Tdap) 02/01/20 Given Medications acetaminophen 325 mg oral tablet 650 mg, By Mouth, Every 4 hours, PRN, not to exceed 4000 mg/day, # 90 tablet, Refills 1, Tot. Refills 1, Maintenance, Pain , Mild, 04/08/20 7:44:00 EDT, Route to Pharmacy Electronically, [facility]/pharmacy#[id number], 160, cm, 04/08/20 0:23:00 EDT, Height, 68.5,... Start Date: 04/08/20 Status: Ordered Colace sodium 100 mg oral capsule 100 mg, 1, capsule, By Mouth, 2 times a day, PRN, # 60 capsule, Refills 1, Tot. Refills 1, Maintenance, for constipation, 04/08/20 7:44:00 EDT, Route to Pharmacy Electronically, [facility]/pharmacy #[id number], 160, cm, 04/08/20 0:23:00 EDT, Height, 68.5, kg, 05/0... Start Date: 04/08/20 Status: Ordered Diflucan 150 mg oral tablet = 150 mg, By Mouth, Every 48 hours, # 2 capsule, 0 Refills, Maintenance, 08/11/20 16:09:00 EDT, [facility]/pharmacy #[id number], 160, cm, 08/10/20 15:49:00 EDT, Height, 68.5, kg, 04/06/20 21:05:00 EDT, Dry Weight Start Date: 08/11/20 Status: Ordered Magdalena 30 mg oral tablet 1 tablet = 30 mg, By Mouth, Once, # 1 tablet, 1 Refills, Soft Stop, 05/05/20 17:56:00 EDT, Tablet, [facility]/pharmacy #[id number], 160, cm, 04/08/20 [...] 2 Refills, Maintenance, 02/15/20 12:09:00 EDT, Tablet, [facility]/pharmacy #[id number], 163, cm, 02/15/20 8:51:00 EDT, Height, 71.9, kg, 01/30/20 18:33:00 EST, Dry Weight Start Date: 02/15/20 Status: Ordered Fioricet oral capsule 2 capsule, By Mouth, Every 6 hours, PRN as needed, not to exceed 6 capsules/day, # 20 capsule, 0 Refills, Maintenance, 03/23/20 16:49:00 EDT, Capsule, [facility]/pharmacy #[id number], 2 capsule By Mouth Every 6 hours,PRN:as needed,Instr:not to exceed 6 capsules/da... Start Date: 03/23/20 Status: Ordered fluconazole 150 mg oral tablet 1 tablet = 150 mg, By Mouth, Once, For yeast infection, # 1 tablet, 0 Refills, Soft Stop, 12/13/20 12:14:00 EST, Tablet, [facility]/pharmacy #[id number], 160, cm, 12/13/20 [...] 12/08/20 11:01:00 EST, [id number], cm,... Start Date: 12/08/20 Status: Ordered metroNIDAZOLE 0.75% topical gel 1 application, Vaginally, 2 times a day, # 45 Gm, 0 Refills, Maintenance, 08/10/20 16:16:00 EDT, [facility]/pharmacy #[id number], 1 application Vaginally [...] Refills, Maintenance, 12/24/19 9:43:00 EST, REC Powder, [facility]/pharmacy #[id number], 17 Gm By Mouth 3 times a day,PRN:Constipation,Instr:dissolve in water before t... Start Date: 12/24/19 Status: Ordered Natachew Multivitamins oral tablet, chewable 1 tablet, Chew, Daily, # 30 tablet, 11 Refills, Maintenance, 12/24/19 9:46:00 EST, Chew Tablet, [facility]/pharmacy #[id number], any gummy or chewable substitution is fine, 1 tablet Chew Daily, 163, cm, 12/24/19 9:24:00 EST, Height, 78.4, kg, 06/08/19 12:... Start Date: 12/24/19 Status: Ordered ProAir HFA 90 mcg/inh inhalation aerosol with adapter 2, puffs, Inhalation, Every 4 hours, PRN, # 8.5 Gm, Refills 1, Tot. Refills 1, Maintenance, 06/14/20 14:35:00 EDT, Aerosol, Route to Pharmacy Electronically, [id number], [facility]/pharmacy #[id number], 160, cm, 05/24/20 17:54:00 EDT, Hei... Start Date: 06/14/20 Status: Ordered Zofran 4 mg oral tablet 1 tablet = 4 mg, By Mouth, Every 6 hours, PRN Nausea & Vomiting, # 30 tablet, 0 Refills, Maintenance, 03/09/20 7:47:00 EDT, Tablet, [facility]/pharmacy #[id number], 163, cm, 02/15/20 [...]
--- OUTSIDE RECORDS SUMMARY | 2023-03-03 11:25 | XMS_ITS | Continuity of Care Document ---
Author Name Unknown Organization [facility] Address [address] [place] [address]- Care Team Providers Care Health Outreach Worker Name Role Phone Not on Staff, PCP Primary Care Physician Unavail able Encounter [facility] Date(s): 12/26/21 - 01/25/[address] [address] Attending Physician: Chelsy Reagan Admitting Physician: AdmChelsy abraham Referring Physician: AdmtrChelsy Allergies, Adverse Reactions, Alerts Substance Reaction Severity Status Seafood Active Immunizations Given and Recorded Vaccine Date Status Refusal Reason influenza virus vaccine, inactivated 12/01/21 Give n tetanus/diphtheria/pertussis, acel(Tdap) 02/01/20 Given Medications acamprosate 333 mg oral delayed release tablet = 666 mg, By Mouth, 3 times a day with meals, # 180 tablet, 1 Refills, Maintenance, 12/05/21 10:58:00 EST, Tablet, [facility]/pharmacy #[id number], Partial fill upon [...] 04/08/20 7:44:00 EDT, Route to Pharmacy Electronically, [facility]/pharmacy#[id number], 160, cm, 04/08/20 0:23:00 [...] 12/05/21 10:58:00 EST, Route to Pharmacy Electronically, [facility]/pharmacy #[id number], Partial fill upon [...] 12/08/20 11:01:00 EST, Route to Pharmacy Electronically, [facility]/pharmacy #[id number], 160, cm,... Start Date: 12/08/20 Status: [...] 1 Refills, Maintenance, 12/05/21 10:59:00 EST, Gum, [facility]acy [id number], Partial fill upon patient request if the prescription is for a schedule II opioid drug., 163, c... Start Date: 12/05/21 Status: Ordered ProAir HFA 90 mcg/inh inhalation aerosol with adapter 2, puffs, Inhalation, Every 4 hours, PRN, # 8.5 Gm, Refills 1, Tot. Refills 1, Maintenance, 06/14/20 14:35:00 EDT, Aerosol, Route to Pharmacy Electronically, [id number], [facility]/pharmacy #[id number], 160, cm, 05/24/20 17:54:00 EDT, Hei... Start Date: 06/14/20 Status: Ordered thiamine 100 mg oral tablet 100 mg, 1, tablet, By Mouth, 2 times a day, # 60 tablet, Refills 0, Tot. Refills 0, Maintenance, 12/05/21 10:58:00 EST, Route to Pharmacy Electronically, [facility]/pharmacy #[id number], Partial fill upon patientrequest if the prescription is for a schedule II op... Start Date: 12/05/21 Status: Ordered Valtrex 500 mg oral tablet See Instructions, 1 tablet By Mouth 2 times a day 3 days for outbreak, # 30 tablet, Refills 1, Tot.Refills 1, Maintenance, 12/05/21 13:10:00 EST, Instructions Replace Required Details, Route to Pharmacy Electronically, [facility]/pharmacy #[id number], Partial ruddy... Start Date: [...]
--- OUTSIDE RECORDS SUMMARY | 2023-03-03 11:25 | XMS_ITS | Continuity of Care Document ---
Author Name Unknown Organization [facility] Address [address] [place] [address]- Care Team Providers Care Etcher Enameling Name Role Phone Not on Staff, PCP Primary Care Physician Unavail able Encounter [facility] Date(s): 12/06/20 - 12/13/20 [facility] [address] [place] [address]- Encounter Diagnosis Screen for STD (sexually transmitted disease)(Discharge Diagnosis) - 12/06/20 Attending Physician: Keo Cain MD Referring Physician: Keo Cain MD Allergies, Adverse Reactions, [...] 04/08/20 7:44:00 EDT, Route to Pharmacy Electronically, [facility]/pharmacy#[id number], 160, cm, 04/08/20 0:23:00 EDT, Height, 68.5,... Start Date: 04/08/20 Status: Ordered Colace sodium 100 mg oral capsule 100 mg, 1, capsule, By Mouth, 2 times a day, PRN, # 60 capsule, Refills 1, Tot. Refills 1, Maintenance, for constipation, 04/08/20 7:44:00 EDT, Route to Pharmacy Electronically, [facility]/pharmacy #[id number], 160, cm, 04/08/20 [...] Refills, Soft Stop, 12/13/20 12:14:00 EST, Tablet, [facility]/pharmacy #[id number], 160, cm, 12/13/20 11:35:00 EST, Height, 65.1, kg, 12/13/2110:39:00 EST, Dry Weight Start Date: 12/13/20 Status: Ordered ibuprofen 800 mg oral tablet 800 mg, 1, tablet, By Mouth, Every 8 hours, PRN, not to exceed 3200 mg/day with food or milk, # 90 tablet, Refills 0, Tot. Refills 0, Maintenance, Pain , Moderate, 12/08/20 11:01:00 EST, Route to Pharmacy Electronically, [facility]/pharmacy #[id number], 160, cm,... Start Date: 12/08/20 Status: Ordered metroNIDAZOLE 0.75% topical gel 1 application, Vaginally, 2 times a day, # 45 Gm, 0 Refills, Maintenance, 08/10/20 16:16:00 EDT, [facility]/pharmacy #[id number], 1 application Vaginally 2 [...] Refills, Maintenance, 12/24/19 9:43:00 EST, REC Powder, [facility]/pharmacy #[id number], 17 Gm By Mouth 3 times a day,PRN:Constipation,Instr:dissolve in water before t... Start Date: 12/24/19 Status: Ordered Natachew Multivitamins oral tablet, chewable 1 tablet, Chew, Daily, # 30 tablet, 11 Refills, Maintenance, 12/24/19 9:46:00 EST, Chew Tablet, [facility]/pharmacy #[id number], any gummy or chewable substitution is fine, 1 tablet Chew Daily, 163, cm, 12/24/19 9:24:00 EST, Height, 78.4, kg, 06/08/19 12:... Start Date: 12/24/19 Status: Ordered ProAir HFA 90 mcg/inh inhalation aerosol with adapter 2, puffs, Inhalation, Every 4 hours, PRN, # 8.5 Gm, Refills 1, Tot. Refills 1, Maintenance, 06/14/20 14:35:00 EDT, Aerosol, Route to Pharmacy Electronically, [id number], [facility]/pharmacy #[id number], 160, cm, 05/24/20 17:54:00 EDT, Hei... Start Date: 06/14/20 Status: Ordered Zofran 4 mg oral tablet 1 tablet = 4 mg, By Mouth, Every 6 hours, PRN Nausea & Vomiting, # 30 tablet, 0 Refills, Maintenance, 03/09/20 7:47:00 EDT, Tablet, [facility]/pharmacy #[id number], 163, cm, 02/15/20 [...] Flu --Declined vaccine(Confirmed) Active Current smoker(Confirmed) Active Diagnosis Diagnosis Type Effective Dates Health Status Clinical Service Informant Screen for STD (sexually transmitted disease) Discharge Diagnosis 12/06/20 Vital Signs Most recent to oldest [Reference Range]: 1 Height 160 cm (12/06/20 4:48 PM) Oxygen Saturation [94-100 %] 100 % (12/06/20 4:48 PM) Pulse Rate [55-90 bpm] 77 bpm (12/06/20 4:48 PM) Blood Pressure [90-138/55-84 mm Hg] 132/ 76mm Hg (12/06/20 4:48 PM) Respiratory Rate [16-30 br/min] 18 br/mi n (12/06/20 4:48 PM) Temperature [96.8-100.4 DegF] 97.1 DegF (12/06/20 4:48 PM) Mode of Delivery (Oxygen) Room air (12/06/20 4:48 PM) Blood pressure sites Arm, right (12/06/20 4:48 PM) Temperature Route Temporal (12/06/20 4:48 PM) Social History Social History Type Response Tobacco Use: 4 or less cigar ettes(less than 1/4 pack)/day in last 30 days. Sex
--- OUTSIDE RECORDS SUMMARY | 2023-03-03 11:25 | XMS_ITS | Continuity of Care Document ---
Author Name Unknown Organization [facility] Address [address] [place] [id number]- Care Team Providers Care Coin Rolling Machine Operator Name Role Phone Not on Staff, PCP Primary Care Physician Unavail able Encounter [facility] Date(s): 12/13/20 - 03/09/[address] [id number] Attending Physician: Not on Staff, Attending [...] 04/08/20 7:44:00 EDT, [id number], cm, 04/08/20 0:23:00 EDT, Height, 68.5,... Start Date: 04/08/20 Status: Ordered Colace sodium 100 mg oral capsule 100 mg, 1, capsule, By Mouth, 2 times a day, PRN, # 60 capsule, Refills 1, Tot. Refills 1, Maintenance, for constipation, 04/08/20 7:44:00 EDT, Route to Pharmacy Electronically, [facility]/pharmacy #[id number], 160, cm, 04/08/20 0:23:00 EDT, [...] 11:01:00 EST, Route to Pharmacy Electronically, [facility]/pharmacy #[id number], 160, cm,... Start Date: 12/08/20 Status: Ordered metroNIDAZOLE 0.75% topical gel 1 application, Vaginally, 2 times a day, # 45 Gm, 0 Refills, Maintenance, 08/10/20 16:16:00 EDT, [facility]/pharmacy #[id number], 1 application Vaginally 2 times [...] Maintenance, 12/24/19 9:43:00 EST, REC Powder, [facility]/pharmacy #[id number], 17 Gm By Mouth 3 times a day,PRN:Constipation,Instr:dissolve in water before t... Start Date: 12/24/19 Status: Ordered Natachew Multivitamins oral tablet, chewable 1 tablet, Chew, Daily, # 30 tablet, 11 Refills, Maintenance, 12/24/19 9:46:00 EST, Chew Tablet, [facility]/pharmacy #[id number], any gummy or chewable substitution is fine, 1 tablet Chew Daily, 163, cm, 12/24/19 9:24:00 EST, Height, 78.4, kg, 06/08/19 12:... Start Date: 12/24/19 Status: Ordered ProAir HFA 90 mcg/inh inhalation aerosol with adapter 2, puffs, Inhalation, Every 4 hours, PRN, # 8.5 Gm, Refills 1, Tot. Refills 1, Maintenance, 06/14/20 14:35:00 EDT, Aerosol, Route to Pharmacy Electronically, [id number], [facility]/pharmacy #[id number], 160, cm, 05/24/20 17:54:00 EDT, Hei... Start Date: 06/14/20 Status: Ordered Zofran 4 mg oral tablet 1 tablet = 4 mg, By Mouth, Every 6 hours, PRN Nausea & Vomiting, # 30 tablet, 0 Refills, Maintenance, 03/09/20 7:47:00 EDT, Tablet, [facility]/pharmacy #[id number], 163, cm, 02/15/20 8:51:00 EDT, [...]
--- OUTSIDE RECORDS SUMMARY | 2023-03-03 11:25 | XMS_ITS | Continuity of Care Document ---
Author Name Unknown Organization [facility] Address [address] [place] [id number]- Care Team Providers Care Shift Stacker Name Role Phone Not on Staff, PCP Primary Care Physician Unavail able Encounter [facility] Date(s): 08/11/20 - 09/14/[address] [address]- [facility] Attending Physician: Not on Staff, Attending [...] 04/08/20 7:44:00 EDT, [id number], cm, 04/08/20 0:23:00 EDT, Height, 68.5,... Start Date: 04/08/20 Status: Ordered Colace sodium 100 mg oral capsule 100 mg, 1, capsule, By Mouth, 2 times a day, PRN, # 60 capsule, Refills 1, Tot. Refills 1, Maintenance, for constipation, 04/08/20 7:44:00 EDT, Route to Pharmacy Electronically, [facility]/pharmacy #[id number], 160, cm, 04/08/20 0:23:00 EDT, Height, [...] Refills, Soft Stop, 05/05/20 17:56:00 EDT, Tablet, [facility]/pharmacy #[id number], 160, cm, 04/08/20 10:42:00 EDT, Height, [...] 2 Refills, Maintenance, 02/15/20 12:09:00 EDT, Tablet, [facility]/pharmacy #[id number], 163, cm, 02/15/20 8:51:00 EDT, Height, 71.9, kg, 01/30/20 18:33:00 EST, Dry Weight Start Date: 02/15/20 Status: Ordered Fioricet oral capsule 2 capsule, By Mouth, Every 6 hours, PRN as needed, not to exceed 6 capsules/day, # 20 capsule, 0 Refills, Maintenance, 03/23/20 16:49:00 EDT, Capsule, [facility]/pharmacy #[id number], 2 capsule By Mouth Every 6 hours,PRN:as needed,Instr:not to exceed 6 capsules/da... Start Date: 03/23/20 Status: Ordered ibuprofen 800 mg oral tablet 800 mg, 1, tablet, By Mouth, Every 8 hours, PRN, not to exceed 3200 mg/day with food or milk, # 90 tablet, Refills 1, Tot. Refills 1, Maintenance, Pain , Moderate, 04/08/20 7:45:00 EDT, Route to Pharmacy Electronically, [facility]/pharmacy #[id number], 160, cm, 0... Start Date: 04/08/20 Status: Ordered metroNIDAZOLE 0.75% topical gel 1 application, Vaginally, 2 times a day, # 45 Gm, 0 Refills, Maintenance, 08/10/20 16:16:00 EDT, [facility]/pharmacy #[id number], 1 application Vaginally 2 times a day,x5 days, 160, cm, 08/10/20 15:49:00 EDT, Height, 68.5, kg, 04/06/20 21:05:00 EDT, Dry Weight Start Date: 08/10/20 Stop Date: 08/15/20 Status: Ordered MiraLax oral powder for reconstitution = 17 Gm, By Mouth, 3 times a day, PRN Constipation, dissolve in water before taking, # 527 Gm, 0 Refills, Maintenance, 12/24/19 9:43:00 EST, REC Powder, [facility]/pharmacy #[id number], 17 Gm By Mouth 3 times a day,PRN:Constipation,Instr:dissolve in water before t... Start Date: 12/24/19 Status: Ordered Natachew Multivitamins oral tablet, chewable 1 tablet, Chew, Daily, # 30 tablet, 11 Refills, Maintenance, 12/24/19 9:46:00 EST, Chew Tablet, [facility]/pharmacy #[id number], any gummy or chewable substitution is fine, 1 tablet Chew Daily, 163, cm, 12/24/19 9:24:00 EST, Height, 78.4, kg, 06/08/19 12:... Start Date: 12/24/19 Status: Ordered ProAir HFA 90 mcg/inh inhalation aerosol with adapter 2, puffs, Inhalation, Every 4 hours, PRN, # 8.5 Gm, Refills 1, Tot. Refills 1, Maintenance, 06/14/20 14:35:00 EDT, Aerosol, Route to Pharmacy Electronically, [id number], [facility]/pharmacy #[id number], 160, cm, 05/24/20 17:54:00 EDT, Hei... [...]
--- OUTSIDE RECORDS SUMMARY | 2023-03-03 11:25 | XMS_ITS | Continuity of Care Document ---
Author Name Unknown Organization [facility] Address [address] [place] [address]- Care Team Providers Care Research Archaeologist Name Role Phone Not on Staff, PCP Primary Care Physician Unavail able Encounter [facility] Date(s): 09/14/22 - 09/15/[address] [address]- Encounter Diagnosis Alcohol intoxication(Final) - 09/14/22 Alcohol intoxication(Final) - 09/14/22 Discharge Disposition: A-D/C Home Attending Physician: Maykel Oropeza MD Admitting Physician: Maykel Oropeza MD Referring Physician: Not on Staff, Referring MD Allergies, Adverse Reactions, Alerts Substance Reaction Severity Status Seafood Active Immunizations Given and Recorded Vaccine Date Status Refusal Reason influenza virus vaccine, inactivated 12/01/21 Give n tetanus/diphtheria/pertussis, acel(Tdap) 02/01/20 Given Problem List Condition Confirmation Course Effective Dates Status Health St atus Informant Anxiety Confirmed Active COVID-19 1 Confirmed 06/08/22 Active Marijuana use Confirmed Active Genital herpes simplex virus (HSV) infection in mother affecting Confirmed Active History of depression Confirmed Active History of delivery Confirmed Active History of influenza Confirmed Active Flu --Declined vaccine Confirmed Active Current smoker Confirmed Active 1Problem added by Discern Expert Vital Signs Most recent to oldest [Reference Range]: 1 2 3 Oxygen Saturation [94-100 %] 99 % (09/15/22 7:51 AM) 95 % (09/15/22 4:59 AM) 99 % (09/14/22 9:14 PM) Pulse Rate [55-90 bpm] 108 bpm *H* (09/15/22 7:51 AM) 84 bpm (09/15/22 4:59 AM) 108 bpm *H* (09/14/22 9:14 PM) Blood Pressure [90-138/55-84 mm Hg] 118/86mm Hg (09/15/22 7:51 AM) 110/77mm Hg (09/15/22 4:59 AM) 102/70mm Hg (09/14/22 9:14 PM) Respiratory Rate [16-30 br/min] 16 br/min (09/15/22 7:51 AM) 16 br/min (09/15/22 4:59 AM) 18 br/min (09/14/22 9:14 PM) Temperature [96.8-100.4 DegF] 98.1 DegF (09/15/22 7:51 AM) 97.7 DegF (09/15/22 4:59 AM) 99.0 DegF (09/14/22 9:14 PM) Mode of Delivery (Oxygen) Room air (09/15/22 7:51 AM) Room air (09/15/22 4:59 AM) Room air (09/14/22 9:14 PM) Blood pressure sites Arm, left (09/15/22 7:51 AM) Arm, right (09/15/22 4:59 AM) Temperature Route Oral (09/15/22 7:51 AM) Oral (09/15/22 4:59 AM) Oral (09/14/22 9:14 PM) Social History Social History Type Response Smoking Status 5-9 cigarettes (betw een 1/4 to 1/2 pack)/day in last 30 days entered on: 03/27/21 Sex Patient Care team information Personnel Name: Not on Staff, PCP
--- OUTSIDE RECORDS SUMMARY | 2023-03-03 11:25 | XMS_ITS | Continuity of Care Document ---
Author Name Unknown Organization [facility] ter Address [address] [place] [address]- Care Team Providers Care Outpatient Coder Name Role Phone Not on Staff, PCP Primary Care Physician Unavail able Encounter [facility] Date(s): 02/13/22 - 02/13/[address] [address]- Discharge Disposition: A-D/C Home Attending Physician: Caitlin Chow DO Admitting Physician: Caitlin Chow DO Referring Physician: Not on Staff, Referring [...] 12/05/21 10:58:00 EST, Route to Pharmacy Electronically, [facility]/pharmacy #[id number], Partial fill upon patient request if the prescription is for a schedule II opioid drug.... Start Date: 12/05/21 Status: Ordered Natachew Multivitamins oral tablet, chewable 1 tablet, Chew, Daily, # 30 tablet, 11 Refills, Maintenance, 12/24/19 9:46:00 EST, Chew Tablet, [facility]/pharmacy #[id number], any gummy or chewable [...] 14:35:00 EDT, Aerosol, Route to Pharmacy Electronically, [id number], [facility]/pharmacy #[id number], 160, cm, 05/24/20 17:54:00 EDT, Hei... Start Date: 06/14/20 Status: Ordered sucralfate 1 gm oral tablet 1 Gm, 1, tablet, By Mouth, 3 times a day before meals and bedtime, # 120 tablet, Refills 0, Tot. Refills 0, Maintenance, 02/05/22 9:07:00 EST, Route to Pharmacy Electronically, [facility], Partial fill upon patient request if the prescri... Start Date: 02/05/22 Status: Ordered thiamine 100 mg oral tablet 100 mg, 1, tablet, By Mouth, 2 times a day, # 60 tablet, Refills 0, Tot. Refills 0, Maintenance, 12/05/21 10:58:00 EST, Route to Pharmacy Electronically, [facility]/pharmacy #[id number], Partial fill upon patientrequest if the prescription [...] [Reference Range]: 1 Oxygen Saturation [94-100 %] 100 % (02/13/22 3:48 PM) Pulse Rate [55-90 bpm] 90 bpm (02/13/22 3:48 PM) Blood Pressure [90-138/55-84 mm Hg] 124/ 64mm Hg (02/13/22 3:48 PM) Respiratory Rate [16-30 br/min] 18 br/mi n (02/13/22 3:48 PM) Temperature [96.8-100.4 DegF] 98.6 DegF (02/13/22 3:48 PM) Mode of Delivery (Oxygen) Room air (02/13/22 3:48 PM) Blood pressure sites Arm, right (02/13/22 3:48 PM) Temperature Route Oral (02/13/22 3:48 PM) Social History Social History Type Response Smoking Status 5-9 cigarettes (betw een 1/4 to 1/2 pack)/day in last 30 days entered on: 03/27/21 Sex
--- OUTSIDE RECORDS SUMMARY | 2023-03-03 11:25 | XMS_ITS | Continuity of Care Document ---
Author Name Unknown Organization [facility] Address [address] [place] [address]- Care Team Providers Care Bee Producer Name Role Phone Not on Staff, PCP Primary Care Physician Unavail able Encounter [facility] [place] Date(s): 04/19/21 - 05/19/[address] [address]- Attending Physician: Chelsy Reagan Admitting Physician: AdmChelsy [...] 04/08/20 7:44:00 EDT, Route to Pharmacy Electronically, [facility]/pharmacy#[id number], 160, cm, 04/08/20 0:23:00 EDT, Height, 68.5,... [...] 12/08/20 11:01:00 EST, Route to Pharmacy Electronically, [facility]/pharmacy #[id number], 160, cm,... Start Date: 12/08/20 Status: Ordered Natachew Multivitamins oral tablet, chewable 1 tablet, Chew, Daily, # 30 tablet, 11 Refills, Maintenance, 12/24/19 9:46:00 EST, Chew Tablet, [facility]/pharmacy #[id number], any gummy or chewable substitution is fine, 1 tablet Chew Daily, 163, cm, 12/24/19 9:24:00 EST, Height, 78.4, kg, 06/08/19 12:... Start Date: 12/24/19 Status: Ordered ProAir HFA 90 mcg/inh inhalation aerosol with adapter 2, puffs, Inhalation, Every 4 hours, PRN, # 8.5 Gm, Refills 1, Tot. Refills 1, Maintenance, 06/14/20 14:35:00 EDT, Aerosol, Route to Pharmacy Electronically, [id number], [facility]/pharmacy #[id number], 160, cm, 05/24/20 17:54:00 EDT, Hei... [...]
--- OUTSIDE RECORDS SUMMARY | 2023-03-03 11:25 | XMS_ITS | Continuity of Care Document ---
Author Name Unknown Organization [facility] ter Address [address] [place] [address]- Care Team Providers Care Slide Fastener Chain Assembler Name Role Phone Not on Staff, PCP Primary Care Physician Unavail able Encounter [facility] [place] Date(s): 11/30/21 - 12/05/[address] [address]- Encounter Diagnosis Abdominal pain(Final) - 11/30/21 Discharge Disposition: A-D/C Home Attending Physician: Gorge Donnelly DO Admitting Physician: Alexandro BLACKBURN, Joel Referring Physician: Not on Staff, Referring MD [...] 1 Refills, Maintenance, 12/05/21 10:58:00 EST, Tablet, [facility]/pharmacy #[id number], Partial fill upon [...] 04/08/20 7:44:00 EDT, Route to Pharmacy Electronically, [facility]/pharmacy#[id number], 160, cm, 04/08/20 0:23:00 EDT, Height, 68.5,... Start Date: 04/08/20 Status: Ordered Acetaminophen Tablet 650 mg, Tablet, By Mouth, Every 4 hours, PRN for Pain , Mild, Temperature Greater than 100.5, Routine, 11/30/21 5:53:00 EST Start Date: 11/30/21 Stop Date: 12/05/21 Status: Discontinued Bela 0.35 mg oral tablet 1 tablet = 0.35 mg, By Mouth, Daily, # 28 tablet, 12 Refills, Maintenance, 12/05/21 13:10:00 EST, Tablet, [facility]/pharmacy #[id number], Partial fill upon patient request if the prescription is for a schedule II opioid drug., 163, cm, 12/05/21 12:52:00 EST, Heig... Start Date: 12/05/21 Status: Ordered Dilaudid Inj 1 mg, Injection, IV Push Slowly, Every 6 hours, PRN for Pain , Severe, Routine, 12/04/21 15:00:00 EST Start Date: 12/04/21 Stop Date: 12/05/21 Status: Discontinued Ensure Plus Ensure Plus, See Instructions, # 90 each, Refills 2, Tot. Refills 2, Maintenance, Ensure Plus 3x/day during for poor weight gain, 02/01/20 13:13:00 EST, Supply Start Date: 02/01/20 Status: Ordered famotidine 10 mg oral tablet 1 tablet = 10 mg, By Mouth, 2 times a day, # 28 tablet, 0 Refills, Maintenance, 07/07/21 9:00:00 EDT, Tablet, [facility]/pharmacy #[id number], Partial fill upon patient request if the prescription is for a schedule II opioid drug., 163, cm, 07/06/21 8:39:00 EDT, H... Start Date: 07/07/21 Status: Ordered folic acid 1 mg oral tablet 1 mg, 1, tablet, By Mouth, Daily, # 30 tablet, Refills 0, Tot. Refills 0, Maintenance, 12/05/21 10:58:00 EST, Route to Pharmacy Electronically, [facility]/pharmacy #[id number], Partial fill upon [...] 12/08/20 11:01:00 EST, Route to Pharmacy Electronically, [facility]/pharmacy #[id number], 160, cm,... Start Date: 12/08/20 Status: Ordered Natachew Multivitamins oral tablet, chewable 1 tablet, Chew, Daily, # 30 tablet, 11 Refills, Maintenance, 12/24/19 9:46:00 EST, Chew Tablet, [facility]/pharmacy #[id number], any gummy or chewable substitution is fine, 1 tablet Chew Daily, 163, cm, 12/24/19 9:24:00 EST, Height, 78.4, kg, 06/08/19 12:... Start Date: 12/24/19 Status: Ordered Nicotine 2 mg gum 1 each = 2 mg, Chew, Every 2 hours, PRN as needed for smoking cessation, # 40 each, 1 Refills, Maintenance, 12/05/21 10:59:00 EST, Gum, [facility]/pharmacy #[id number], Partial fill upon patient request if the prescription is for a schedule II opioid drug., 163, c... Start Date: 12/05/21 Status: Ordered ProAir HFA 90 mcg/inh inhalation aerosol with adapter 2, puffs, Inhalation, Every 4 hours, PRN, # 8.5 Gm, Refills 1, Tot. Refills 1, Maintenance, 06/14/20 14:35:00 EDT, Aerosol, Route to Pharmacy Electronically, [id number], [facility]/pharmacy #[id number], 160, cm, 05/24/20 17:54:00 EDT, Hei... Start Date: 06/14/20 Status: Ordered thiamine 100 mg oral tablet 100 mg, 1, tablet, By Mouth, 2 times a day, # 60 tablet, Refills 0, Tot. Refills 0, Maintenance, 12/05/21 10:58:00 EST, Route to Pharmacy Electronically, [facility]/pharmacy #[id number], Partial fill upon patientrequest if the prescription is for a schedule II op... Start Date: 12/05/21 Status: Ordered Valtrex 500 mg oral tablet See Instructions, 1 tablet By Mouth 2 times a day 3 days for outbreak, # 30 tablet, Refills 1, Tot.Refills 1, Maintenance, 12/05/21 13:10:00 EST, Instructions Replace Required Details, Route to Pharmacy Electronically, [facility]/pharmacy #[id number], Partial ruddy... Start Date: 12/05/21 Status: Ordered Problem List Condition Effective Dates Status Health Status Inform ant Anxiety(Confirmed) Active Marijuana use(Confirmed) Active Genital herpes simplex virus (HSV) infection in mother affecting (Confirmed) Active History of depression(Confirmed) Active History of delivery(Confirmed) Active History of influenza(Confirmed) Active Flu --Declined vaccine(Confirmed) Active Current smoker(Confirmed) Active Results Radiology Reports * Exam Date Time Procedure Performing Provider Status 11/30/21 1:21 AM Chest Portable Oscar Coyne; Aut h (Verified) Notes: (Chest Portable) Reason For Exam: Shortness of Breath RESULT: Chest Portable Chest Portable Hx of Present Illness: etoh; Reason: Shortness of Breath; Clinical Question(s): CHF COMPARISON: 05/07/2015. FINDINGS: LINES AND TUBES: None. LUNGS AND PLEURA: Clear lungs. Normal pulmonary vascularity. No pleural effusion. No pneumothorax. HEART, MEDIASTINUM AND KAJAL: Heart is normal in size. Normal upper mediastinal and hilar contour. BONES AND SOFT TISSUES: No acute abnormality. IMPRESSION: No acute abnormality. WSN: [id number] Ordering Physician: Raymundo Arreaga Dictated By: Veronica Chowdary MD Dictated Date/Time: 11/30/21 7:51 am Reviewed By: Veronica Chowdary MD Signed By: Veronica Chowdary MD Signed Date/Time: 11/30/21 7:51 am Transcribed By: BORIS Transcribed Date/Time: 11/30/21 7:51 am Vital Signs Most recent to oldest [Reference Range]: 1 2 3 Height 163 cm (12/04/21 2:52 PM) 163 cm (12/04/21 5:15 AM) 163 cm (12/03/21 9:01 PM) Weight 59.8 kg (11/30/21 9:57 AM) Oxygen Saturation [94-100 %] 100 % (12/04/21 2:52 PM) 100 % (12/04/21 5:15 AM) 99 % (12/03/21 9:01 PM) Pulse Rate [55-90 bpm] 52 bpm *L* (12/04/21 2:52 PM) 57 bpm (12/04/21 5:15 AM) 55 bpm (12/03/21 9:01 PM) Body Mass Index [18.5-24.99] 22.51 (11/30/21 9:57 AM) Blood Pressure [90-138/55-84 mm Hg] 114/61mm Hg (12/04/21 2:52 PM) 118/65mm Hg (12/04/21 5:15 AM) 116/63mm Hg (12/03/21 9:01 PM) Respiratory Rate [16-30 br/min] 18 br/min (12/05/21 12:11 PM) 18 br/min (12/05/21 10:06 AM) 18 br/min (12/05/21 9:36 AM) Temperature [96.8-100.4 DegF] 98.0 DegF (12/04/21 2:52 PM) 97.7 DegF (12/04/21 5:15 AM) 97.9 DegF (12/03/21 9:01 PM) Mode of Delivery (Oxygen) Room air (12/04/21 2:52 PM) Room air (12/04/21 5:15 AM) Room air (12/03/21 9:01 PM) Blood pressure sites Arm, right (12/04/21 2:52 PM) Arm, right (12/04/21 5:15 AM) Arm, right (12/03/21 9:01 PM) Temperature Route Oral (12/04/21 2:52 PM) Oral (12/04/21 5:15 AM) Oral (12/03/21 9:01 PM) Dry Weight 59.8 kg (11/30/21 9:57 AM) Social History Social History Type Response Smoking Status 5-9 cigarettes (betw een 1/4 to 1/2 pack)/day in last 30 days entered on: 03/27/21 Sex
--- OUTSIDE RECORDS SUMMARY | 2023-03-03 11:25 | XMS_ITS | Continuity of Care Document ---
Author Name Unknown Organization [facility] ter Address [address] [place] [address]- Care Team Providers Care Vice Chancellor Name Role Phone Not on Staff, PCP Primary Care Physician Unavail able Encounter [facility] [place] Date(s): 04/06/20 - 04/08/[address] [address]- [facility] Discharge Disposition: A-D/C Home Attending Physician: Jairon Sol DO Admitting Physician: Jaiorn Sol DO Referring Physician: Jairon Sol DO Allergies, Adverse Reactions, Alerts Substance Reaction Severity Status Seafood Active Immunizations Given and Recorded Vaccine Date Status Refusal Reason tetanus/diphtheria/pertussis, acel(Tdap) 02/01/20 Given Medications acetaminophen 325 mg oral tablet 650 mg, By Mouth, Every 4 hours, PRN, not to exceed 4000 mg/day, # 90 tablet, Refills 1, Tot. Refills 1, Maintenance, Pain , Mild, 04/08/20 7:44:00 EDT, Route to Pharmacy Electronically, [facility]/pharmacy#[id number], 160, cm, 04/08/20 0:23:00 EDT, Height, 68.5,... Start Date: 04/08/20 Status: Ordered Colace sodium 100 mg oral capsule 100 mg, 1, capsule, By Mouth, 2 times a day, PRN, # 60 capsule, Refills 1, Tot. Refills 1, Maintenance, for constipation, 04/08/20 7:44:00 EDT, Route to Pharmacy Electronically, [facility]/pharmacy #[id number], 160, cm, 04/08/20 0:23:00 [...] 2 Refills, Maintenance, 02/15/20 12:09:00 EDT, Tablet, [facility]/pharmacy #[id number], 163, cm, 02/15/20 8:51:00 [...] 02/15/20 9:03:00 EDT, [id number] 163, cm, 02/15/20 8:51:00 EDT, Height, 71.9, kg, 0... Start Date: 02/15/20 Stop Date: 05/15/20 Status: Ordered Valtrex 500 mg oral tablet 500 mg, 1, tablet, By Mouth, 2 times a day, for 30 days, # 60 tablet, Refills 2, Tot. Refills 2, Acute 08/13/20 9:03:00 EDT, 05/15/20 9:03:00 EDT, [id number], 163, cm, 03/14/20 9:02:00 EDT, Height, 72.2, kg, 0... Start Date: 05/15/20 Stop Date: 08/13/20 Status: Ordered Zofran 4 mg oral tablet 1 tablet = 4 mg, By Mouth, Every 6 hours, PRN Nausea & Vomiting, # 30 tablet, 0 Refills, Maintenance, 03/09/20 7:47:00 EDT, Tablet, [facility]/pharmacy #[id number], 163, cm, 02/15/20 8:51:00 [...] oldest [Reference Range]: 1 2 3 Height 160 cm (04/08/20 8:50 AM) 160 cm (04/08/20 12:00 AM) 160 cm (04/07/20 4:36 PM) Weight 68.5 kg (04/06/20 8:29 PM) 73 kg (04/06/20 7:08 PM) Oxygen Saturation [94-100 %] 97 % (04/08/20 12:00 AM) 100 % (04/07/20 8:30 AM) 100 % (04/07/20 8:15 AM) Pulse Rate [55-90 bpm] 75 bpm (04/08/20 8:50 AM) 73 bpm (04/08/20 12:00 AM) 76 bpm (04/07/20 4:36 PM) Body Mass Index [18.5-24.99] 26.76 *H* (04/06/20 8:29 PM) 28.52 *H* (04/06/20 7:08 PM) Blood Pressure [90-138/55-84 mm Hg] 93/61mm Hg (04/08/20 8:50 AM) 101/52mm Hg (04/08/20 12:00 AM) 104/52mm Hg (04/07/20 4:36 PM) Respiratory Rate [16-30 br/min] 18 br/min (04/08/20 8:50 AM) 18 br/min (04/08/20 6:14 AM) 18 br/min (04/08/20 2:02 AM) Temperature [96.8-100.4 DegF] 97.8 DegF (04/08/20 8:50 AM) 98.8 DegF (04/08/20 12:00 AM) 97.9 DegF (04/07/20 4:36 PM) Mode of Delivery (Oxygen) Room air (04/08/20 12:00 AM) Blood pressure sites Arm, left (04/07/20 4:36 PM) Arm, left (04/07/20 10:29 AM) Arm, left (04/06/20 8:29 PM) Temperature Route Oral (04/08/20 8:50 AM) Oral (04/08/20 12:00 AM) Oral (04/07/20 4:36 PM) Dry Weight 68.5 kg (04/06/20 8:29 PM) Social History Social History Type Response Tobacco Use: 4 or less cigar ettes(less than 1/4 pack)/day in last 30 days. Sex
--- OUTSIDE RECORDS SUMMARY | 2023-03-03 11:25 | XMS_ITS | Continuity of Care Document ---
Author Name Unknown Organization [facility] ter Address [address] [place] [address]- Care Team Providers Care Cover Assembler Name Role Phone Not on Staff, PCP Primary Care Physician Unavail able Encounter [facility] [place] Date(s): 06/07/22 - 06/08/[address] [address]- Encounter Diagnosis COVID-19(Final) - 06/07/22 Discharge Disposition: A-D/C Home Attending Physician: Nestor Yates MD Admitting Physician: Nestor Ytaes MD Referring Physician: Not on Staff, Referring [...] 04/15/22 12:00:00 EDT, Route to Pharmacy Electronically, [facility]/pharmacy #[id number], Partial fill upon patient request if the prescription is for a schedule II opioid drug.... Start Date: 04/15/22 Status: Ordered folic acid 1 mg oral tablet 1 mg, 1, tablet, By Mouth, Daily, # 30 tablet, Refills 0, Tot. Refills 0, Maintenance, 03/11/22 13:43:00 EDT, Route to Pharmacy Electronically, [facility], Partial fill upon patient request [...] 0 Refills, Maintenance, 04/15/22 12:01:00 EDT, Capsule, [facility]/pharmacy #[id number], Partial fill upon patient request if the prescription is for a schedule II opioiddrug., 1 capsule By Mouth Daily, 168, cm, 04/15/22... Start Date: 04/15/22 Status: Ordered thiamine 100 mg oral tablet 100 mg, 1, tablet, By Mouth, 2 times a day, # 60 tablet, Refills 0, Tot. Refills 0, Maintenance, 03/11/22 13:43:00 EDT, Route to Pharmacy Electronically, [facility], Partial fill upon patient request [...] 1 2 3 Oxygen Saturation [94-100 %] 97 % (06/08/22 5:32 AM) 96 % (06/08/22 3:18 AM) 98 % (06/07/22 10:19 PM) Pulse Rate [55-90 bpm] 88 bpm (06/08/22 5:32 AM) 108 bpm *H* (06/08/22 3:18 AM) 85 bpm (06/07/22 10:19 PM) Blood Pressure [90-138/55-84 mm Hg] 120/82mm Hg (06/08/22 5:32 AM) 125/88mm Hg (06/08/22 3:18 AM) 113/77mm Hg (06/07/22 10:19 PM) Respiratory Rate [16-30 br/min] 18 br/min (06/08/22 5:32 AM) 16 br/min (06/08/22 3:18 AM) 16 br/min (06/07/22 10:19 PM) Temperature [96.8-100.4 DegF] 98.3 DegF (06/07/22 8:05 PM) 97.8 DegF (06/07/22 7:13 PM) Mode of Delivery (Oxygen) Room air (06/08/22 5:32 AM) Room air (06/08/22 3:18 AM) Room air (06/07/22 10:19 PM) Blood pressure sites Arm, left (06/08/22 5:32 AM) Arm, left (06/08/22 3:18 AM) Arm, right (06/07/22 10:19 PM) Temperature Route Oral (06/07/22 8:05 PM) Axillary (06/07/22 7:13 PM) Social History Social History Type Response Smoking Status 5-9 cigarettes (betw een 1/4 to 1/2 pack)/day in last 30 days entered on: 03/27/21 Sex
--- OUTSIDE RECORDS SUMMARY | 2023-03-03 11:25 | XMS_ITS | Continuity of Care Document ---
Author Name Unknown Organization [facility] Address [address] [place] [address]- Care Team Providers Care Wind Turbine Engineer Name Role Phone Not on Staff, PCP Primary Care Physician Unavail able [place] [facility] [place] 03[place]10[place] [facility] [address] [address]- [facility] Attending Physician: Sravanthi Valente DO Allergies, Adverse Reactions, Alerts Substance Reaction Severity Status Seafood Active Immunizations Given and Recorded Vaccine Date Status Refusal Reason tetanus/diphtheria/pertussis, acel(Tdap) 02/01/20 Given Medications Colace sodium 100 mg oral capsule 100 mg, 1, capsule, By Mouth, 2 times a day, PRN, # 60 capsule, Refills 1, Tot. Refills 1, Maintenance, for constipation, 12/24/19 9:43:00 EST, Route to Pharmacy Electronically, [facility]/pharmacy #[id number], 163, cm, 12/24/19 9:24:00 EST, Height, [...] Maintenance, 02/15/20 12:09:00 EDT, Tablet, [facility]/pharmacy #[id number], [...] 02/15/20 9:03:00 EDT, Route to Pharmacy Electronically, [facility]/pharmacy #[id number], 163, cm, [...]
--- OUTSIDE RECORDS SUMMARY | 2023-03-03 11:26 | XMS_ITS | Continuity of Care Document ---
Author Name Unknown Organization [facility] Address [address] [place] [address]- Care Team Providers Care Core Rescuer Name Role Phone Not on Staff, PCP Primary Care Physician Unavail able Encounter [facility] [place] Date(s): 11/05/21 - 12/05/[address] [address] Allergies, Adverse Reactions, Alerts Substance Reaction Severity Status Seafood Active Immunizations Given and Recorded Vaccine Date Status Refusal Reason influenza virus vaccine, inactivated 12/01/21 Give n tetanus/diphtheria/pertussis, acel(Tdap) 02/01/20 Given Medications acamprosate 333 mg oral delayed release tablet = 666 mg, By Mouth, 3 times a day with meals, # 180 tablet, 1 Refills, Maintenance, 12/05/21 10:58:00 EST, Tablet, [facility]/pharmacy #[id number], Partial fill upon patient request if the prescription is for a schedule II opioid drug., 163, cm, 12/04/21 14:52:00... Start Date: 12/05/21 Status: Ordered acetaminophen 325 mg oral tablet 650 mg, By Mouth, Every 4 hours, PRN, not to exceed 4000 mg/day, # 90 tablet, Refills 1, Tot. Refills 1, Maintenance, Pain , Mild, 04/08/20 7:44:00 EDT, Route to Pharmacy Electronically, [facility]/pharmacy#[id number], 160, cm, 04/08/20 0:23:00 EDT, Height, [...] 0 Refills, Maintenance, 07/07/21 9:00:00 EDT, Tablet, [facility]/pharmacy #[id number], Partial fill upon patient request if the prescription is for a schedule II opioid drug., 163, cm, 07/06/21 8:39:00 EDT, H... Start Date: 07/07/21 Status: Ordered folic acid 1 mg oral tablet 1 mg, 1, tablet, By Mouth, Daily, # 30 tablet, Refills 0, Tot. Refills 0, Maintenance, 12/05/21 10:58:00 EST, Route to Pharmacy Electronically, [facility]/pharmacy #[id number], Partial fill upon patient request if [...] 1 Refills, Maintenance, 12/05/21 10:59:00 EST, Gum, [facility]/pharmacy #[id number], Partial fill upon patient request if the prescription is for a schedule II opioid drug., 163, c... Start Date: 12/05/21 Status: Ordered ProAir HFA 90 mcg/inh inhalation aerosol with adapter 2, puffs, Inhalation, Every 4 hours, PRN, # 8.5 Gm, Refills 1, Tot. Refills 1, Maintenance, 06/14/20 14:35:00 EDT, Aerosol, Route to Pharmacy Electronically, [id number], [facility]/pharmacy #[id number], 160, cm, 05/24/20 17:54:00 EDT, Hei... Start Date: 06/14/20 Status: Ordered thiamine 100 mg oral tablet 100 mg, 1, tablet, By Mouth, 2 times a day, # 60 tablet, Refills 0, Tot. Refills 0, Maintenance, 12/05/21 10:58:00 EST, Route to Pharmacy Electronically, [facility]/pharmacy #[id number], Partial fill upon patientrequest if the prescription is for a schedule II op... Start Date: 12/05/21 Status: Ordered Valtrex 500 mg oral tablet See Instructions, 1 tablet By Mouth 2 times a day 3 days for outbreak, # 30 tablet, Refills 1, Tot.Refills 1, Maintenance, 12/05/21 13:10:00 EST, Instructions Replace Required Details, Route to Pharmacy Electronically, [facility]acy [id number], Partial ruddy... Start Date: 12/05/21 Status: [...]
--- OUTSIDE RECORDS SUMMARY | 2023-03-03 11:26 | XMS_ITS | Continuity of Care Document ---
Author Name Unknown Organization [facility] Address [address] [place] [address]- Care Team Providers Care Building Carpenter Helper Name Role Phone Not on Staff, PCP Primary Care Physician Unavail able Encounter [facility] [place] Date(s): 11/01/21 - 12/07/[address] [address]- Attending Physician: Lilly Thomas CNM Admitting Physician: [...] 1 Refills, Maintenance, 12/05/21 10:58:00 EST, Tablet, [facility]/pharmacy #[id number], Partial fill upon [...] 04/08/20 7:44:00 EDT, Route to Pharmacy Electronically, [facility]/pharmacy#[id number], 160, cm, 04/08/20 0:23:00 [...] 0 Refills, Maintenance, 07/07/21 9:00:00 EDT, Tablet, [facility]/pharmacy #[id number], Partial fill upon patient request if the prescription is for a schedule II opioid drug., 163, cm, 07/06/21 8:39:00 EDT, H... Start Date: 07/07/21 Status: Ordered folic acid 1 mg oral tablet 1 mg, 1, tablet, By Mouth, Daily, # 30 tablet, Refills 0, Tot. Refills 0, Maintenance, 12/05/21 10:58:00 EST, Route to Pharmacy Electronically, [facility]/pharmacy #[id number], Partial fill upon [...] 1 Refills, Maintenance, 12/05/21 10:59:00 EST, Gum, [facility]/pharmacy #[id number], Partial fill upon patient request if the prescription is for a schedule II opioid drug., 163, c... Start Date: 12/05/21 Status: Ordered ProAir HFA 90 mcg/inh inhalation aerosol with adapter 2, puffs, Inhalation, Every 4 hours, PRN, # 8.5 Gm, Refills 1, Tot. Refills 1, Maintenance, 06/14/20 14:35:00 EDT, Aerosol, Route to Pharmacy Electronically, [id number], [facility]/pharmacy #[id number], 160, cm, 05/24/20 17:54:00 EDT, Hei... Start Date: 06/14/20 Status: Ordered thiamine 100 mg oral tablet 100 mg, 1, tablet, By Mouth, 2 times a day, # 60 tablet, Refills 0, Tot. Refills 0, Maintenance, 12/05/21 10:58:00 EST, Route to Pharmacy Electronically, [facility]/pharmacy #[id number], Partial fill upon patientrequest if the prescription is for a schedule II op... Start Date: 12/05/21 Status: Ordered Valtrex 500 mg oral tablet See Instructions, 1 tablet By Mouth 2 times a day 3 days for outbreak, # 30 tablet, Refills 1, Tot.Refills 1, Maintenance, 12/05/21 13:10:00 EST, Instructions Replace Required Details, Route to Pharmacy Electronically, [facility]/pharmacy #[id number], Partial ruddy... Start Date: 12/05/21 Status: [...]
--- OUTSIDE RECORDS SUMMARY | 2023-03-03 11:26 | XMS_ITS | Continuity of Care Document ---
Author Name Unknown Organization [facility] Address [address] [place] [address]- Care Team Providers Care Assistant Professor Sculpture Name Role Phone Not on Staff, PCP Primary Care Physician Unavail able [place] [facility] [place] 02/20/20 [facility] [address] [address]- [facility] Attending Physician: Not on Staff, Attending MD [...] 12/24/19 9:43:00 EST, Route to Pharmacy Electronically, [facility]/pharmacy #[id number], 163, cm, 12/24/19 9:24:00 EST, [...] 2 Refills, Maintenance, 02/15/20 12:09:00 EDT, Tablet, [facility]/pharmacy #[id number], 163, cm, 02/15/20 8:51:00 EDT, Height, 71.9, kg, 01/30/20 18:33:00 EST, Dry Weight Start Date: 02/15/20 Status: Ordered MiraLax oral powder for reconstitution = 17 Gm, By Mouth, 3 times a day, PRN Constipation, dissolve in water before taking, # 527 Gm, 0 Refills, Maintenance, 12/24/19 9:43:00 EST, REC Powder, [facility]/pharmacy #[id number], 17 Gm By Mouth [...] days, # 84 tablet, 0 Refills, Acute 02/22/20 11:45:00 EDT, 02/01/20 11:45:00 EST, Tablet, [facility]/pharmacy #[id number], 163, cm, 02/01/20 11:27:00 EST, Height, 71.9, kg, 01/30/20 18:33:00... Start Date: 02/01/20 Stop Date: 02/22/20 Status: Ordered Valtrex 500 mg oral tablet 500 mg, 1, tablet, By Mouth, 2 times a day, for 30 days, # 60 tablet, Refills 2, Tot. Refills 2, Acute 05/15/20 9:03:00 EDT, 02/15/20 9:03:00 EDT, Route to Pharmacy Electronically, [facility]/pharmacy #[id number], 163, cm, 02/15/20 8:51:00 EDT, Height, 71.9, kg, 0... Start Date: 02/15/20 Stop Date: 05/15/20 Status: Ordered Zofran 4 mg oral tablet 1 tablet = 4 mg, By Mouth, Every 6 hours, PRN Nausea & Vomiting, # 30 tablet, 0 Refills, Maintenance, 02/14/20 13:33:00 EDT, Tablet, [facility]/pharmacy #[id number], 163, cm, 02/01/20 11:27:00 EST, Height, [...]
--- OUTSIDE RECORDS SUMMARY | 2023-03-03 11:26 | XMS_ITS | Continuity of Care Document ---
Author Name Unknown Organization [facility] Address [address] [place] [address]- Care Team Providers Care Stone Sawyer Name Role Phone Not on Staff, PCP Primary Care Physician Unavail able Encounter [facility] [place] Date(s): 01/17/20 - 01/24/20 [facility] [address] [place] [address]- [facility] Encounter Diagnosis Flu-like symptoms(Discharge Diagnosis) - 01/17/20 Attending Physician: Alhaji Castro MD Referring Physician: Alhaji Castro MD Allergies, Adverse Reactions, Alerts Substance Reaction [...] 12/24/19 9:43:00 EST, Route to Pharmacy Electronically, [facility]/pharmacy #[id number], 163, cm, 12/24/19 9:24:00 EST, Height, 78.4, kg, 07/0... Start Date: 12/24/19 Status: Ordered MiraLax oral powder for reconstitution = 17 Gm, By Mouth, 3 times a day, PRN Constipation, dissolve in water before taking, # 527 Gm, 0 Refills, Maintenance, 12/24/19 9:43:00 EST, REC Powder, [facility]/pharmacy #[id number], 17 Gm By Mouth 3 times a day,PRN:Constipation,Instr:dissolve in water before t... Start Date: 12/24/19 Status: Ordered Natachew Multivitamins oral tablet, chewable 1 tablet, Chew, Daily, # 30 tablet, 11 Refills, Maintenance, 12/24/19 9:46:00 EST, Chew Tablet, [facility]/pharmacy #[id number], any gummy or chewable substitution is fine, 1 tablet Chew Daily, 163, cm, 12/24/19 9:24:00 EST, Height, 78.4, kg, 06/08/19 12:... Start Date: 12/24/19 Status: Ordered Zofran 4 mg oral tablet 1 tablet = 4 mg, By Mouth, Every 4 hours, PRN as needed for nausea/vomiting, # 30 tablet, 0 Refills, Maintenance, 01/21/20 11:07:00 EST, Tablet, [facility]/pharmacy #[id number], 163, cm, 01/17/20 15:32:00 EST, Height, 70.5, kg, 01/17/20 15:32:00 EST, Dry Weight Start Date: 01/21/20 Status: Ordered Problem List Condition Effective Dates Status Health Status Inform ant Anxiety(Confirmed) Active Constipation during (Confirmed) Active Marijuana use(Confirmed) Active History of depression(Confirmed) Active Flu --Declined vaccine(Confirmed) Active Poor weight gain of (Confirmed) Active Nausea/vomiting in (Confirmed) Active Diagnosis Diagnosis Type Effective Dates Health Status Cl inical Service Informant Flu-like symptoms Discharge Diagnosis 01/17/20 Vital Signs Most recent to oldest [Reference Range]: 1 Height 163 cm (01/17/20 3:32 PM) Weight 70.5 kg (01/17/20 3:32 PM) Oxygen Saturation [94-100 %] 100 % (01/17/20 3:32 PM) Pulse Rate [55-90 bpm] 113 bpm *H* (01/17/20 3:32 PM) Body Mass Index [18.5-24.99] 26.53 *H* (01/17/20 3:32 PM) Blood Pressure [90-138/55-84 mm Hg] 125/ 76mm Hg (01/17/20 3:32 PM) Respiratory Rate [16-30 br/min] 18 br/mi n (01/17/20 3:32 PM) Temperature [96.8-100.4 DegF] 98.9 DegF (01/17/20 3:32 PM) Mode of Delivery (Oxygen) Room air (01/17/20 3:32 PM) Blood pressure sites Arm, right (01/17/20 3:32 PM) Temperature Route Oral (01/17/20 3:32 PM) Dry Weight 70.5 kg (01/17/20 3:32 PM) Weight Obtained Via Standing scale (01/17/20 3:32 PM) Dry Weight Obtained Via Standing scale (01/17/20 3:32 PM) Social History Social History Type Response Tobacco Use: 4 or less cigar ettes(less than 1/4 pack)/day in last 30 days. Sex
--- OUTSIDE RECORDS SUMMARY | 2023-03-03 11:26 | XMS_ITS | Continuity of Care Document ---
Author Name Unknown Organization [facility] Address [address] [place] [address]- Care Team Providers Care Communications Professor Name Role Phone Not on Staff, PCP Primary Care Physician Unavail able Encounter [facility] [place](s[place] 01/17/20 - 01/27/20 [facility] [address] [place] [address]- [facility] Attending Physician: Chelsy Reagan Admitting Physician: AdmtrChelsy Referring Physician: Admtr, Ar8 Allergies, Adverse Reactions, Alerts Substance Reaction Severity [...] 9:43:00 EST, Route to Pharmacy Electronically, [facility]/pharmacy #[id number], 163, cm, 12/24/19 9:24:00 EST, Height, 78.4, kg, 07/0... Start Date: 12/24/19 Status: Ordered MiraLax oral powder for reconstitution = 17 Gm, By Mouth, 3 times a day, PRN Constipation, dissolve in water before taking, # 527 Gm, 0 Refills, Maintenance, 12/24/19 9:43:00 EST, REC Powder, [facility]/pharmacy #[id number], 17 Gm By Mouth 3 times a day,PRN:Constipation,Instr:dissolve in water before t... Start Date: 12/24/19 Status: Ordered Natachew Multivitamins oral tablet, chewable 1 tablet, Chew, Daily, # 30 tablet, 11 Refills, Maintenance, 12/24/19 9:46:00 EST, Chew Tablet, [facility]/pharmacy #[id number], any gummy or chewable substitution is fine, 1 tablet Chew Daily, 163, cm, 12/24/19 9:24:00 EST, Height, 78.4, kg, 06/08/19 12:... Start Date: 12/24/19 Status: Ordered Zofran 4 mg oral tablet 1 tablet = 4 mg, By Mouth, Every 4 hours, PRN as needed for nausea/vomiting, # 30 tablet, 0 Refills, Maintenance, 01/21/20 11:07:00 EST, Tablet, [facility]/pharmacy #[id number], 163, cm, 01/17/20 15:32:00 EST, Height, [...]
--- OUTSIDE RECORDS SUMMARY | 2023-03-03 11:26 | XMS_ITS | Continuity of Care Document ---
Author Name Unknown Organization [facility] Address [address] [place] [address]- Care Team Providers Care Bar Catcher Name Role Phone Not on Staff, PCP Primary Care Physician Unavail able Encounter [facility] [place] Date(s): 02/01/20 - 05/18/[address] [address]- [facility] Attending Physician: Lilly Thomas CNM [...] EDT, Route to Pharmacy Electronically, [facility]/pharmacy#[id number], 160, cm, 04/08/20 0:23:00 EDT, Height, [...] Refills, Soft Stop, 05/05/20 17:56:00 EDT, Tablet, [facility]/pharmacy #[id number], 160, cm, 04/08/20 10:42:00 EDT, [...] Refills, Maintenance, 02/15/20 12:09:00 EDT, Tablet, [facility]/pharmacy #[id number], 163, cm, 02/15/20 8:51:00 EDT, Height, 71.9, kg, 01/30/20 18:33:00 EST, Dry Weight Start Date: 02/15/20 Status: Ordered Fioricet oral capsule 2 capsule, By Mouth, Every 6 hours, PRN as needed, not to exceed 6 capsules/day, # 20 capsule, 0 Refills, Maintenance, 03/23/20 16:49:00 EDT, Capsule, [facility]/pharmacy #[id number], 2 capsule By Mouth Every 6 hours,PRN:as needed,Instr:not to exceed 6 capsules/da... Start Date: 03/23/20 Status: Ordered ibuprofen 800 mg oral tablet 800 mg, 1, tablet, By Mouth, Every 8 hours, PRN, not to exceed 3200 mg/day with food or milk, # 90 tablet, Refills 1, Tot. Refills 1, Maintenance, Pain , Moderate, 04/08/20 7:45:00 EDT, Route to Pharmacy Electronically, [facility]/pharmacy #[id number], 160, cm, 0... Start Date: [...] 05/15/20 9:03:00 EDT, Route to Pharmacy Electronically, [facility]/pharmacy #[id number], 163, cm, 03/14/20 9:02:00 EDT, [...]
--- OUTSIDE RECORDS SUMMARY | 2023-03-03 11:26 | XMS_ITS | Continuity of Care Document ---
Author Name Unknown Organization [facility] ter Address [address] [place] [address]- Care Team Providers Care Ob/Gyn Doctor Name Role Phone Not on Staff, PCP Primary Care Physician Unavail able Encounter [facility] Date(s): 03/27/21 - 03/27/[address] [address]- Discharge Disposition: A-D/C Walkout Attending Physician: Not [...] 04/08/20 7:44:00 EDT, Route to Pharmacy Electronically, [facility]/pharmacy#[id number], 160, cm, 04/08/20 0:23:00 EDT, Height, 68.5,... [...] 12/08/20 11:01:00 EST, Route to Pharmacy Electronically, [facility]/pharmacy #[id number], 160, cm,... Start Date: 12/08/20 Status: Ordered Natachew Multivitamins oral tablet, chewable 1 tablet, Chew, Daily, # 30 tablet, 11 Refills, Maintenance, 12/24/19 9:46:00 EST, Chew Tablet, [facility]/pharmacy #[id number], any gummy or chewable substitution is fine, 1 tablet Chew Daily, 163, cm, 12/24/19 9:24:00 EST, Height, 78.4, kg, 06/08/19 12:... Start Date: 12/24/19 Status: Ordered ProAir HFA 90 mcg/inh inhalation aerosol with adapter 2, puffs, Inhalation, Every 4 hours, PRN, # 8.5 Gm, Refills 1, Tot. Refills 1, Maintenance, 06/14/20 14:35:00 EDT, Aerosol, Route to Pharmacy Electronically, [id number], [facility]/pharmacy #[id number], 160, cm, 05/24/20 17:54:00 EDT, Hei... [...] oldest [Reference Range]: 1 Height 163 cm (03/27/21 11:12 AM) Weight 65.1 kg (03/27/21 11:12 AM) Oxygen Saturation [94-100 %] 100 % (03/27/21 11:02 AM) Pulse Rate [55-90 bpm] 85 bpm (03/27/21 11:02 AM) Blood Pressure [90-138/55-84 mm Hg] 127/ 74mm Hg (03/27/21 11:02 AM) Respiratory Rate [16-30 br/min] 20 br/mi n (03/27/21 11:02 AM) Temperature [96.8-100.4 DegF] 98 DegF (03/27/21 11:02 AM) Liters per Minute 0 L/min (03/27/21 11:02 AM) Mode of Delivery (Oxygen) Room air (03/27/21 11:02 AM) Blood pressure sites Arm, right (03/27/21 11:02 AM) Temperature Route Oral (03/27/21 11:02 AM) Dry Weight 65.1 kg (03/27/21 11:12 AM) Social History Social History Type Response Smoking Status 5-9 cigarettes (betw een 1/4 to 1/2 pack)/day in last 30 days entered on: 03/27/21 Sex
--- OUTSIDE RECORDS SUMMARY | 2023-03-03 11:26 | XMS_ITS | Continuity of Care Document ---
Author Name Unknown Organization [facility] ter Address [address] [place] [address]- Care Team Providers Care Full Stack Python Developer Name Role Phone Not on Staff, PCP Primary Care Physician Unavail able [place] [facility] [place]13[place]22 - 05/14/[address] [address]- Encounter Diagnosis Alcohol use disorder, severe, dependence(Final) - 05/14/22 Discharge Disposition: A-D/C Home Attending Physician: Ibeth Miles MD Admitting Physician: Ibeth Miles MD Referring Physician: Not on Staff, Referring [...] 12:00:00 EDT, Route to Pharmacy Electronically, [facility]/pharmacy #[id number], Partial fill upon patient request if the prescription is for a schedule II opioid drug.... Start Date: 04/15/22 Status: Ordered folic acid 1 mg oral tablet 1 mg, 1, tablet, By Mouth, Daily, # 30 tablet, Refills 0, Tot. Refills 0, Maintenance, 03/11/22 13:43:00 EDT, Route to Pharmacy Electronically, [facility], Partial fill upon patient request if the prescription is for a schedule II opioid... Start Date: 03/11/22 Stop Date: 04/10/22 Status: Ordered mirtazapine 15 mg oral tablet 1 tablet = 15 mg, By Mouth, Daily at bedtime, # 30 tablet, 0 Refills, Maintenance, 03/28/22 12:50:00 EDT, Tablet, [facility]/pharmacy #[id number], Partial fill upon patient [...] Refills, Maintenance, 04/15/22 12:01:00 EDT, Capsule, [facility]/pharmacy #[id number], Partial fill upon patient request if the prescription is for a schedule II opioiddrug., 1 capsule By Mouth Daily, 168, cm, 04/15/22... Start Date: 04/15/22 Status: Ordered thiamine 100 mg oral tablet 100 mg, 1, tablet, By Mouth, Daily, # 30 tablet, Refills 0, Tot. Refills 0, Acute 05/16/22 21:00:00EDT, 04/15/22 12:02:00 EDT, Route to Pharmacy Electronically, [facility]/pharmacy #[id number], Partial fill uponpatient request if the prescription is for a schedu... Start Date: 04/15/22 Stop Date: 05/16/22 Status: Ordered thiamine 100 mg oral tablet 100 mg, 1, tablet, By Mouth, 2 times a day, # 60 tablet, Refills 0, Tot. Refills 0, Maintenance, 03/11/22 13:43:00 EDT, Route to Pharmacy Electronically, [facility], Partial fill upon patient request if [...] 3 Oxygen Saturation [94-100 %] 100 % (05/14/22 10:25 AM) 98 % (05/14/22 6:00 AM) 97 % (05/14/22 2:07 AM) Pulse Rate [55-90 bpm] 99 bpm *H* (05/14/22 10:25 AM) 81 bpm (05/14/22 6:00 AM) 68 bpm (05/14/22 2:07 AM) Blood Pressure [90-138/55-84 mm Hg] 112/74mm Hg (05/14/22 10:25 AM) 108/65mm Hg (05/14/22 6:00 AM) 110/69mm Hg (05/14/22 2:07 AM) Respiratory Rate [16-30 br/min] 18 br/min (05/14/22 10:25 AM) 16 br/min (05/14/22 6:00 AM) 20 br/min (05/14/22 2:07 AM) Temperature [96.8-100.4 DegF] 97.4 DegF (05/14/22 10:25 AM) 98.0 DegF (05/14/22 6:00 AM) 98.1 DegF (05/14/22 2:07 AM) Mode of Delivery (Oxygen) Room air (05/14/22 10:25 AM) Room air (05/14/22 6:00 AM) Room air (05/14/22 2:07 AM) Blood pressure sites Arm, right (05/14/22 10:25 AM) Arm, left (05/14/22 6:00 AM) Arm, right (05/14/22 2:07 AM) Temperature Route Oral (05/14/22 10:25 AM) Oral (05/14/22 6:00 AM) Oral (05/14/22 2:07 AM) Social History Social History Type Response Smoking Status 5-9 cigarettes (betw een 1/4 to 1/2 pack)/day in last 30 days entered on: 03/27/21 Sex
--- OUTSIDE RECORDS SUMMARY | 2023-03-03 11:26 | XMS_ITS | Continuity of Care Document ---
Author Name Unknown Organization [facility] Address [address] [place] [address]- Care Team Providers Care Dental Specialist Name Role Phone Not on Staff, PCP Primary Care Physician Unavail able Encounter [facility] [place] Date(s): 06/14/20 - 07/14/20 [facility] [address] [place] [address]- [facility] Attending Physician: Chelsy Reagan Admitting Physician: Chelsy Reagan Referring Physician: trChelsy Allergies, Adverse Reactions, Alerts Substance Reaction Severity [...] 04/08/20 7:45:00 EDT, Route to Pharmacy Electronically, [facility]/pharmacy #[id number], 160, cm, 0... Start [...] 14:35:00 EDT, Aerosol, Route to Pharmacy Electronically, [id number], [facility]/pharmacy #[id number], 160, cm, 05/24/20 17:54:00 EDT, Hei... Start Date: 06/14/20 Status: Ordered Valtrex 500 mg oral tablet 500 mg, 1, tablet, By Mouth, 2 times a day, for 30 days, # 60 tablet, Refills 2, Tot. Refills 2, Acute 08/13/20 9:03:00 EDT, 05/15/20 9:03:00 EDT, Route to Pharmacy Electronically, [facility]/pharmacy #[id number], 163, cm, 03/14/20 9:02:00 [...]
--- OUTSIDE RECORDS SUMMARY | 2023-03-03 11:26 | XMS_ITS | Continuity of Care Document ---
Author Name Unknown Organization [facility] Address [address] [place] [id number]- Care Team Providers Care Free Lance Model Name Role Phone Not on Staff, PCP Primary Care Physician Unavail able [place] [facility] [place] 01/30/20 [facility] [address] [address]- [facility] Attending Physician: Not on Staff, Attending [...] 12/24/19 9:43:00 EST, Route to Pharmacy Electronically, [facility]/pharmacy #[id number], 163, cm, 12/24/19 9:24:00 EST, Height, 78.4, kg, 07/0... Start Date: 12/24/19 Status: Ordered MiraLax oral powder for reconstitution = 17 Gm, By Mouth, 3 times a day, PRN Constipation, dissolve in water before taking, # 527 Gm, 0 Refills, Maintenance, 12/24/19 9:43:00 EST, REC Powder, [facility]/pharmacy #[id number], 17 Gm By Mouth 3 times a day,PRN:Constipation,Instr:dissolve in water before t... Start Date: 12/24/19 Status: Ordered Natachew Multivitamins oral tablet, chewable 1 tablet, Chew, Daily, # 30 tablet, 11 Refills, Maintenance, 12/24/19 9:46:00 EST, Chew Tablet, [facility]/pharmacy #[id number], any gummy or chewable substitution [...] 02/09/20 16:20:00 EDT, 01/30/20 16:20:00 EST, Tablet, [facility]/pharmacy #[id number], 163, cm,01/17/20 15:32:00 EST, Height, 70.5, kg, 01/17/20 15:32... Start Date: 01/30/20 Stop Date: 02/09/20 Status: Ordered Reglan 10 mg oral tablet 1 tablet = 10 mg, By Mouth, 4 times a day, PRN Nausea & Vomiting, # 40 tablet, 1 Refills, Maintenance, 02/09/20 16:20:00 EDT, Tablet, [facility]/pharmacy #[id number], 163, cm, 01/30/20 18:33:00 EST, Height, [...]
--- OUTSIDE RECORDS SUMMARY | 2023-03-03 11:26 | XMS_ITS | Continuity of Care Document ---
Author Name Unknown Organization [facility] Address [address] [place] [id number]- Care Team Providers Care Supervisor Picking Crew Name Role Phone Not on Staff, PCP Primary Care Physician Unavail able Encounter [facility] [place] Date(s): 02/01/20 - 04/13/[address] [address]- [facility] Attending Physician: Lilly Thomas CNM Admitting Physician: Lilly Thomas CNM Referring Physician: [...] EDT, Route to Pharmacy Electronically, [facility]/pharmacy#[id number], 160, cm, 04/08/20 0:23:00 EDT, Height, 68.5,... Start Date: 04/08/20 Status: Ordered Colace sodium 100 mg oral capsule 100 mg, 1, capsule, By Mouth, 2 times a day, PRN, # 60 capsule, Refills 1, Tot. Refills 1, Maintenance, for constipation, 04/08/20 7:44:00 EDT, Route to Pharmacy Electronically, [facility]/pharmacy #[id number], 160, cm, 04/08/20 0:23:00 EDT, [...] Maintenance, 02/15/20 12:09:00 EDT, Tablet, [facility]/pharmacy #[id number], 163, cm, 02/15/20 8:51:00 EDT, Height, 71.9, kg, 01/30/20 18:33:00 EST, Dry Weight Start Date: 02/15/20 Status: Ordered Fioricet oral capsule 2 capsule, By Mouth, Every 6 hours, PRN as needed, not to exceed 6 capsules/day, # 20 capsule, 0 Refills, Maintenance, 03/23/20 16:49:00 EDT, Capsule, [facility]/pharmacy #[id number], 2 capsule By Mouth Every [...] EDT, Route to Pharmacy Electronically, [facility]/pharmacy #[id number], 160, cm, 0... Start Date: 04/08/20 Status: Ordered MiraLax oral powder for reconstitution = 17 Gm, By Mouth, 3 times a day, PRN Constipation, dissolve in water before taking, # 527 Gm, 0 Refills, Maintenance, 12/24/19 9:43:00 EST, REC Powder, [facility]/pharmacy #[id number], 17 Gm By Mouth 3 times a day,PRN:Constipation,Instr:dissolve in water before t... Start Date: 12/24/19 Status: Ordered Natachew Multivitamins oral tablet, chewable 1 tablet, Chew, Daily, # 30 tablet, 11 Refills, Maintenance, 12/24/19 9:46:00 EST, Chew Tablet, [facility]/pharmacy #[id number], any gummy or chewable substitution [...] EDT, Route to Pharmacy Electronically, [facility]/pharmacy #[id number], 163, cm, 02/15/20 8:51:00 EDT, Height, 71.9, kg, 0... Start Date: 02/15/20 Stop Date: 05/15/20 Status: Ordered Valtrex 500 mg oral tablet 500 mg, 1, tablet, By Mouth, 2 times a day, for 30 days, # 60 tablet, Refills 2, Tot. Refills 2, Acute 08/13/20 9:03:00 EDT, 05/15/20 9:03:00 EDT, Route to Pharmacy Electronically, [facility]/pharmacy #[id number], 163, cm, 03/14/20 9:02:00 EDT, Height, 72.2, kg, 0... Start Date: 05/15/20 Stop Date: 08/13/20 Status: Ordered Zofran 4 mg oral tablet 1 tablet = 4 mg, By Mouth, Every 6 hours, PRN Nausea & Vomiting, # 30 tablet, 0 Refills, Maintenance, 03/09/20 7:47:00 EDT, Tablet, [facility]/pharmacy #[id number], 163, cm, 02/15/20 8:51:00 EDT, [...]
--- NOTE | 2023-03-03 11:57 | ED_ITS ---
HPI - Alcohol General Chief Complaint: ETOH/Substance Use Stated Complaint: detox Time Seen by Provider: 03/03/23 11:24 Source: patient, family and old records reviewed Mode of arrival: ambulatory Limitations: no limitations History of Present Illness HPI narrative: 27 yo female with history of ETOH abuse/dependence, history of withdrawal and withdrawal seizures who presents to the ER for evaluation of ETOH abuse and seeking detox. She presents with her brother who helps provide history. She has been drinking 2 sleeves of vodka per day along with beer. Last drink this morning. Patient was seen here yesterday but ended up leaving before a detox bed was offered to her. Her father was planning on going to the court today for a section 35. She wants to be sober. She is depressed but not suicidal. complaint: alcohol intoxication, alcohol dependence and desires rehab Last drink: Hours (ago) Chronic alcohol use: Yes Previous visits for alcohol intoxication: Yes Recent trauma: No Associated symptoms: denies other symptoms Treatments prior to arrival: none Related Data Allergies Allergy/AdvReac Type Severity Reaction Status Date / Time SEAFOOD Allergy Unknown UNK Uncoded 03/03/23 11:09 Review of Systems Review of Systems: Yes all other systems are reviewed and are negative PMFSH Social History Social History Alcohol intake: current Advance Directives: No Advance Directives Information Provided: No Physical Exam ED Vital Signs: Vital Signs - 24 hr 03/03/23 11:09 Temperature 98 F Pulse Rate 115 H Respiratory Rate 19 Blood Pressure 112/79 Pulse Oximetry 99 Oxygen Delivery Method Room Air BMI result Body Mass Index 17.2 Appearance: Alert. Oriented X3. Appears intoxicated, poorly kempt Head: normocephalic, atraumatic. Eyes: Pupils equal, round and reactive to light. ENT: Pharynx normal. No tonsillar swelling or exudate. Neck: Normal inspection. Neck supple. CVS: Tachycardic, regular rhythm, HR 100. Pulses normal. Respiratory: No respiratory distress. Breath sounds normal. Abdomen: Soft and nontender. +BS x4 Skin: Skin warm and dry. Normal skin color. Normal skin turgor. No rashes. Extremities: No lower extremity edema. No joint swelling. No track olmedo. Neuro/psych: Oriented X 3. No motor deficit. No sensory deficit. CN II-XII intact. Slightly slurred speech and slow to respond but does answer questions appropriately. Depressed Medical Decision Making Medical Decision Making MDM Narrative: 27 yo female with ETOH abuse/dependence presenting for detox. Intoxicated. Depressed but not suicidal. Seen here yesterday for the same. Explained the process of medical clearance, labs ordered. Patient and her brother shortly afte r arrival to the ER, want to leave. The brother expressed he wants to bring her to court right now for section 35. She is steady on her feet. Stable for d/c with her brother Differential Diagnosis Differential Diagnoses: The differential diagnosis associated with the presentation includes alcohol intoxication, alcohol dependence, alcohol withdrawal, substance abuse, depression, no evidence of suicidality Lab Data [facility] Lab Attestation statement: I reviewed the patient's lab results. COVID negative, lab work discontinued as patient is being discharged Labs: Lab Results 03/03/23 Range/Units 11:47 COVID-19 (RACHEL) Negative (Negative) COVID-19 Clin Com See Note Independent Historian Clinical information obtained from an independent historian. History obtained from or confirmed by: Other (Brother) External Record Review External record reviewed: Office record Chronic Conditions Patient?s care impacted by: Other (Alcoholism) Social Determinants Patient?s care significantly limited by Social Determinants of Health including: Alcoholism and drug addiction in family and Other Social Determinant of Health Critical Care Time Critical Care Time Critical Care Time: No Discharge Plan Discharge Clinical Impression: Alcoholic intoxication Patient Disposition: Home, Self-Care Instructions: Alcohol Intoxication (ED) Additional Instructions: recommend detox do not drink alcohol If you develop new or worsening symptoms call 911 or come back to the ER for further evaluation. Interventions: ED Discharge Assessment Last Done: 03/03/23 12:47 Discharge Date/Time: 03/03/23 12:48
[2023-03-03 12:08] LABS: COVID-19 Test Negative (Negative); IDNOW Serial# 9DB6401D
--- NOTE | 2023-03-03 12:20 | MHC.EDTECH ---
Patient is a difficult draw. Used butterfly, a flash was seen, once a tube was inserted into the hub, no blood flow. patient is refusing labs at this time.
--- NOTE | 2023-03-03 14:02 | MHC.RECOVSUP ---
Met with pt in ED6[facility] for potential ATS bed search and recovery resources provided. Pts brother informed that she needs to go to an ATS or he will section her. Pt agreed to ATS but attempted to walk out, at which point her brother informed he is sectioning her instead and pt was dc.
== END 2023-03-03 12:48 | disposition home or self-care (01) ==
PROVIDERS: Physician Assistant; Emergency Provider Emergency Medicine
DX: F10.129 Alcohol abuse with intoxication, unspecified (principal); Y90.9 Presence of alcohol in blood, level not specified; Z20.822 Contact with and (suspected) exposure to COVID-19; Z20.828 Contact with and (suspected) exposure to other viral communicable diseases
CPT/HCPCS: 87635; 99282; 99283

== ENCOUNTER 2023-07-01 11:20 | Emergency (ER) | payer MEDICAID, SELFPAY ==
[2023-07-01 11:29] VITALS: BP 124/83; PULSE 122; RESP 19; TEMP 36.4; O2SAT 98; BMI 20.1
--- NOTE | 2023-07-01 11:30 | ED.PSYCH ---
HPI - Psych General Chief Complaint: ETOH/Substance Use Stated Complaint: Psych eval Time Seen by Provider: 07/01/23 11:42 Related Data Allergies Allergy/AdvReac Type Severity Reaction Status Date / Time SEAFOOD Allergy Unknown UNK Uncoded 03/03/23 11:09 PMFSH Social History Social History Alcohol intake: current Physical Exam Vital Signs: Vital Signs: Last Vital Signs Temp 97.6 F 07/01/23 11:29 Pulse 122 H 07/01/23 11:29 Resp 19 07/01/23 11:29 BP 124/83 07/01/23 11:29 Pulse Ox 98 07/01/23 11:29 O2 Del Method Room Air 07/01/23 11:29 BMI result Body Mass Index 20.1 Course Course Course Narrative: RME - 27 yo female with history of ETOH abuse/dependence, history of ETOH withdrawal seizures presents to the ER for medical clearance for alcohol detox program. Drinks 10-15 nips per day, last drink was yesterday at 2pm. Noncompliant with meds, reported history of schizophrenia per family. Has been section 35'ed multiple times. Just kicked out of [facility] for punching luke. HR 120s in triage. Plan: CIWA, labs, treat withdrawal - evaluate for detox vs inpatient treatment of withdrawal Reevaluation(s) Reevaluation #1: immediately after triage patient left the ER. encouraged her to stay for treatment of withdrawal but she was adamant in leaving. she is not suicidal. she is with her family members who are bringing her home and will call 911 if they are concerned about her wellbeing. Time: 11:45 Discharge Plan Discharge Clinical Impression: Alcohol withdrawal Patient Disposition: Elopement Interventions: ED Discharge Assessment Last Done: 07/01/23 11:41
--- OUTSIDE RECORDS SUMMARY | 2023-07-01 11:51 | XMS_ITS | Continuity of Care Document ---
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 Name Role Phone Not on Staff, PCP Primary Care Physician Unavail able Encounter [facility] Date(s): 06/15/23 - 06/15/[address] [address]- Encounter Diagnosis Trauma(Final) - 06/15/23 Altered mental status(Final) - 06/15/23 Ethanol poisoning(Final) - 06/15/23 Elevated lactic acid level(Final) - 06/15/23 Discharge Disposition: A-D/C Home Attending Physician: Ibeth Miles MD Admitting Physician: Ibeth Miles MD Referring Physician: Not on Staff, Referring MD Results Radiology Reports * Exam Date Time Procedure Performing Provider Status 06/15/23 2:15 PM Chest Portable Annetta Sol h (Verified) Notes: (Chest Portable) Reason For Exam: Other: RESULT: Chest Portable Chest Portable Reason: Other:; Clinical Question(s): Trauma COMPARISON: None. FINDINGS: LINES AND TUBES: None. LUNGS AND PLEURA: Clear lungs. Normal pulmonary vascularity. No pleural effusion. No pneumothorax. HEART, MEDIASTINUM AND KAJAL: Heart is normal in size. Normal mediastinal and hilar contour. BONES AND SOFT TISSUES: No acute abnormality. IMPRESSION: No acute abnormality. WSN: [id number] Ordering Physician: Qasim Estrada Dictated By: Henri Guido MD Dictated Date/Time: 06/15/23 2:57 pm Reviewed By: Henri Guido MD Signed By: Henri Guido MD Signed Date/Time: 06/15/23 2:57 pm Transcribed By: BORIS Transcribed Date/Time: 06/15/23 2:57 pm * Exam Date Time Procedure Performing Provider Status 06/15/23 2:15 PM Pelvis 1 or 2 Views Susannah Sol ; Auth (Verified) Notes: (Pelvis 1 or 2 Views) Reason For Exam: Trauma RESULT: Pelvis 1 or 2 Views Pelvis 1 or 2 Views Reason: Trauma; Clinical Question(s): Other: COMPARISON: None. FINDINGS: No acute fracture or malalignment. Nonspecific sclerotic lesion left proximal femur, likely bone island. IMPRESSION: No acute osseous injury identified. WSN: [id number] Ordering Physician: Qasim Estrada Dictated By: Henri Guido MD Dictated Date/Time: 06/15/23 2:56 pm Reviewed By: Henri Guido MD Signed By: Henri Guido MD Signed Date/Time: 06/15/23 2:56 pm Transcribed By: BORIS Transcribed Date/Time: 06/15/23 2:56 pm * Exam Date Time Procedure Performing Provider Status 06/15/23 2:[address] Cervical Spine W/O Contrast fEren Arce (Verified) Notes: (CT Cervical Spine W/O Contrast) Reason For Exam: Neck trauma, dangerous injury mechanism;Other: RESULT: CT Cervical Spine W/O Contrast CT Head/Brain W/O Contrast, CT Cervical Spine W/O Contrast INDICATION: Reason: Other:; Head trauma, mod-severe; Clinical Question(s): Hematoma TECHNIQUE: Noncontrast head CT using axial technique was reconstructed in axial and coronal planes.Noncontrast spiral CT through the cervical spine was formatted in 3 planes. Automatic tube modulation was used for the cervical spine and iterative dose reconstruction was used for both the head and cervical spine to optimize scan parameters and image quality. COMPARISON: None. FINDINGS: Motion limited exam. Fitness Worker View Findings, Lines and Tubes: None. BRAIN AND EXTRA-AXIAL SPACES: No parenchymal hemorrhage, midline shift, or mass effect. Everett-white matter differentiation is wellpreserved. No acute infarct. Ventricles, sulci, and basilar cisterns are normal. No white matter lesions. No subarachnoid hemorrhage. No subdural or epidural collection. CALVARIUM, SKULL BASE, AND SOFT TISSUES: Slightly depressed appearance of the left zygomatic arch likely sequela of remote trauma. Depressed appearance of the partially imaged anterior left maxillary sinus wall. Minimal mucosal thickening in the maxillary sinuses. Mastoid air cells are clear. Visualized orbits and globes are intact. The extracranial soft tissues are unremarkable. CERVICAL SPINE: No fracture. No acute osseous abnormalities. Normal alignment. No locked or perched facet. Intervertebral disc spaces and vertebral body heightsare preserved. OTHER BONES: No acute abnormality. CERVICAL SOFT TISSUES AND LUNG APICES: Normal soft tissues. Visualized lung apices are clear. IMPRESSION: No acute abnormality of the head or cervical spine. Healed chronic deformity of the left zygomatic arch. Slightly depressed appearance of partially imaged left anterior maxillary sinus wall may also be sequela of chronic trauma. Please correlate with patient's symptoms and physical exam. If there is concern for acute fracture, facial CT would be suggested. WSN: [id number] Ordering Physician: Qasim Estrada Dictated By: Arsenio Looney MD Dictated Date/Time: 06/15/23 2:43 pm Reviewed By: Arsenio Looney MD Signed By: Arsenio Looney MD Signed Date/Time: 06/15/23 2:43 pm Transcribed By: BORIS Transcribed Date/Time: 06/15/23 2:35 pm * Exam Date Time Procedure Performing Provider Status 06/15/23 2:[address] Head/Brain W/O Contrast Adela Arce; Afua (Verified) Notes: (CT Head/Brain W/O Contrast) Reason For Exam: Head trauma, mod-severe;Other: RESULT: CT Head/Brain W/O Contrast CT Head/Brain W/O Contrast, CT Cervical Spine W/O Contrast INDICATION: Reason: Other:; Head trauma, mod-severe; Clinical Question(s): Hematoma TECHNIQUE: Noncontrast head CT using axial technique was reconstructed in axial and coronal planes.Noncontrast spiral CT through the cervical spine was formatted in 3 planes. Automatic tube modulation was used for the cervical spine and iterative dose reconstruction was used for both the head and cervical spine to optimize scan parameters and image quality. COMPARISON: None. FINDINGS: Motion limited exam. Fitness Worker View Findings, Lines and Tubes: None. BRAIN AND EXTRA-AXIAL SPACES: No parenchymal hemorrhage, midline shift, or mass effect. Everett-white matter differentiation is wellpreserved. No acute infarct. Ventricles, sulci, and basilar cisterns are normal. No white matter lesions. No subarachnoid hemorrhage. No subdural or epidural collection. CALVARIUM, SKULL BASE, AND SOFT TISSUES: Slightly depressed appearance of the left zygomatic arch likely sequela of remote trauma. Depressed appearance of the partially imaged anterior left maxillary sinus wall. Minimal mucosal thickening in the maxillary sinuses. Mastoid air cells are clear. Visualized orbits and globes are intact. The extracranial soft tissues are unremarkable. CERVICAL SPINE: No fracture. No acute osseous abnormalities. Normal alignment. No locked or perched facet. Intervertebral disc spaces and vertebral body heightsare preserved. OTHER BONES: No acute abnormality. CERVICAL SOFT TISSUES AND LUNG APICES: Normal soft tissues. Visualized lung apices are clear. IMPRESSION: No acute abnormality of the head or cervical spine. Healed chronic deformity of the left zygomatic arch. Slightly depressed appearance of partially imaged left anterior maxillary sinus wall may also be sequela of chronic trauma. Please correlate with patient's symptoms and physical exam. If there is concern for acute fracture, facial CT would be suggested. WSN: [id number] Ordering Physician: Qasim Estrada Dictated By: Arsenio Looney MD Dictated Date/Time: 06/15/23 2:43 pm Reviewed By: Arsenio Looney MD Signed By: Arsenio Looney MD Signed Date/Time: 06/15/23 2:43 pm Transcribed By: BORIS Transcribed Date/Time: 06/15/23 2:35 pm Vital Signs Most recent to oldest [Reference Range]: 1 Oxygen Saturation [94-100 %] 98 % (06/15/23 2:51 PM) Pulse Rate [55-90 bpm] 106 bpm *H* (06/15/23 2:51 PM) Blood Pressure [90-138/55-84 mm Hg] 126/ 86mm Hg (06/15/23 2:51 PM) Respiratory Rate [16-30 br/min] 18 br/mi n (06/15/23 2:51 PM) Temperature [96.8-100.4 DegF] 98.3 DegF (06/15/23 2:51 PM) Mode of Delivery (Oxygen) Room air (06/15/23 2:51 PM) Temperature Route Oral (06/15/23 2:51 PM) Admission evaluation note * Qasim Estrada MD: MODIFY, SIGN, VERIFY, PERFORM, MODIFY, MODIFY, MODIFY Event Display: Admission Note Authored Date: [id number] Patient: IBETH LANGSTON Age: 27 years Sex: Female : 1995 Associated Diagnoses: None Author: Qasim Estrada MD Trauma History 27yoF cat1 trauma s/p FFS. +LOC, +EtOH, GCS 6. Per EMS, pt had been drinking since 11am and fell. Upon arrival, primary survey was completed and is as follows: airway patent, breath sounds present equal bilaterally, BP 104/62, pupils 2mm and sluggish, GCS 11 (E4 V1 M6). Secondary survey was completed and is documented below. [place] collar was placed for c-spine precaution. IV fluids were administered. Following CXR, the patient was taken to CT for further workup. Past Medical History pancreatitis, epilepsy, DM, schizophrenia Past Surgical History unknown Medications gabapentin, pantoprazole, hydroxyzine, ventolin, naloxone Allergies unknown Family History noncontributory Social History unknown Review of Systems A 14-point review of systems was negative except as documented above Past Medical History Allergies No allergies have been recorded. Social History Social History No qualifying data available. . Physical Examination Vital Signs: T 98.2, BP 104/62, HR 113, RR 20, SpO2 98% on RA General: no acute distress, alert, awake Head: normocephalic, atraumatic, no hematomas, no abrasions, no wounds, no deformities Face: no ecchymosis, no abrasions, no wounds Eyes: pupils are 2mm, equal, round, and sluggish; extraocular movement intact Ears: no hemotympanum, no blood in external auditory canal, no abrasions, no garner's sign Nose: no epistaxis, no deformity Mandible: no deformity, no malocclusion Neck: cervical-collar in place, no hematoma, no ecchymosis, no wounds, trachea midline Chest: symmetric, no deformity, sternum, chest wall, and clavicles are nontender to palpation, no crepitus appreciated Heart: regular rate and rhythm Lungs: clear to auscultation bilaterally Abdomen: soft, nondistended, nontender, no wounds, no ecchymosis, no hematoma Pelvis: stable, nontender Back: no ecchymosis, no abrasions, no hematoma, no wounds Cervical spine: no midline deformities or stepoffs, no tenderness, cervical- collar in place Thoracic spine: no midline deformities or stepoffs, no tenderness Lumbar spine: no midline deformities or stepoffs, no tenderness Extremities: no long bone deformities, no wounds, no abrasions, no ecchymosis, no hematomas, full active range of motion Neurologic: GCS11; 5/5 strength and sensation to light touch intact in the bilateral upper and lower extremities Vascular: palpable dorsalis pedis and radial pulses bilaterally Results Review RESULT: Chest Portable Chest Portable Reason: Other:; Clinical Question(s): Trauma COMPARISON: None. FINDINGS: LINES AND TUBES: None. LUNGS AND PLEURA: Clear lungs. Normal pulmonary vascularity. No pleural effusion. No pneumothorax. HEART, MEDIASTINUM AND KAJAL: Heart is normal in size. Normal mediastinal and hilar contour. BONES AND SOFT TISSUES: No acute abnormality. IMPRESSION: No acute abnormality. RESULT: Pelvis 1 or 2 Views Pelvis 1 or 2 Views Reason: Trauma; Clinical Question(s): Other: COMPARISON: None. FINDINGS: No acute fracture or malalignment. Nonspecific sclerotic lesion left proximal femur, likely bone island. IMPRESSION: No acute osseous injury identified. WSN: [id number] RESULT: CT Head/Brain W/O Contrast CT Head/Brain W/O Contrast, CT Cervical Spine W/O Contrast INDICATION: Reason: Other:; Head trauma, mod-severe; Clinical Question(s): Hematoma TECHNIQUE: Noncontrast head CT using axial technique was reconstructed in axial and coronal planes.Noncontrast spiral CT through the cervical spine was formatted in 3 planes. Automatic tube modulation was used for the cervical spine and iterative dose reconstruction was used for both the head and cervical spine to optimize scan parameters and image quality. COMPARISON: None. FINDINGS: Motion limited exam. Fitness Worker View Findings, Lines and Tubes: None. BRAIN AND EXTRA-AXIAL SPACES: No parenchymal hemorrhage, midline shift, or mass effect. Everett-white matter differentiation is wellpreserved. No acute infarct. Ventricles, sulci, and basilar cisterns are normal. No white matter lesions. No subarachnoid hemorrhage. No subdural or epidural collection. CALVARIUM, SKULL BASE, AND SOFT TISSUES: Slightly depressed appearance of the left zygomatic arch likely sequela of remote trauma. Depressed appearance of the partially imaged anterior left maxillary sinus wall. Minimal mucosal thickening in the maxillary sinuses. Mastoid air cells are clear. Visualized orbits and globes are intact. The extracranial soft tissues are unremarkable. CERVICAL SPINE: No fracture. No acute osseous abnormalities. Normal alignment. No locked or perched facet. Intervertebral disc spaces and vertebral body heightsare preserved. OTHER BONES: No acute abnormality. CERVICAL SOFT TISSUES AND LUNG APICES: Normal soft tissues. Visualized lung apices are clear. IMPRESSION: No acute abnormality of the head or cervical spine. Healed chronic deformity of the left zygomatic arch. Slightly depressed appearance of partially imaged left anterior maxillary sinus wall may also be sequela of chronic trauma. Please correlate with patient's symptoms and physical exam. If there is concern for acute fracture, facial CT would be suggested. WSN: [id number] Impression and Plan 27yoF cat1 trauma s/p FFS. +LOC, +EtOH, GCS 6. Per EMS, pt had been drinking since 11am and fell. Upon arrival, primary survey was completed and is as follows: airway patent, breath sounds present equal bilaterally, BP 104/62, pupils 2mm and sluggish, GCS 11 (E4 V1 M6). Secondary survey was completed and is documented below. [place] collar was placed for c-spine precaution. IV fluids were administered. Following CXR, the patient was taken to CT for further workup. Injuries none Interventions none Consultants none Plan lateral tx to ED Discussed with Dr. Spencer Note * Elias Cleveland MD: PERFORM Event Display: Patient Education Leaflets Authored Date: [id number] After a Fall ?? [id number] After a Fall You have had a fall today. That means that you slipped, tripped, or lost your balance. If your fallwas because of fainting or a seizure,??you might need other??tests. It is normal to feel sore and tight in your muscles and back the next day, and not just the musclesyou injured. Remember, all the parts of your body are connected, so while one area hurts now, the next day another may hurt. Also, when you injure yourself, it causes inflammation. This then causes the muscles to tighten up and hurt more. After the initial worsening symptoms, they should slowly improve over the next few days. Tell your healthcare provider if you have more severe pain. Even without a definite head injury, you can still get a concussion from your head suddenly jerkingforward, backward, or sideways when you fall. This is especially true if you have had concussions in the past. Concussions and even bleeding can still happen, especially if you had a recent injury ortake blood thinner medicine. It is not unusual to have a mild headache and feel tired and even nauseous or dizzy.?? Home care ??? Rest today and return to your normal activities when you are feeling back to normal. ??? If you were injured during the fall, follow the advice from your healthcare provider about how to care for your injury. ??? At first, don't try to stretch out the sore spots. If there is a strain,stretching may make it worse. Massage may help relax the muscles without stretching them. ??? Use an ice pack or cold compress on and off at the sore spots for 10 to 20 minutes at a time, as often asyou feel comfortable. This may help reduce the inflammation, swelling, and pain. ??? Know that if you have any scrapes (abrasions), they often heal within??10 days. Keep the scrapes clean while they start to heal. But an infection may happen even with correct care. So watch for early signs of infection (such as warmth, redness, or swelling). ?? Medicines ??? Talk with your healthcare provider before taking new medicines, especially if you have other health problems or are taking other medicines. ??? If you need anything for pain, use acetaminophen or ibuprofen, unless you were given a different pain medicine to use.??Talk with your healthcare provider before using these medicines if you: o Have chronic liver or kidney disease o Ever hada stomach ulcer or??gastrointestinal bleeding o Are taking blood-thinner medicines ??? Be careful if you are given prescription pain medicines, narcotics, or medicine for muscle spasms. They can makeyou sleepy and dizzy. And they can affect your coordination, reflexes, and judgment. Don't drive ordo work where you can hurt yourself when taking them. ?? Fall prevention ??? Fix, remove, or replace anything that caused your fall. ??? Make your home safeby keeping walkways clear of objects you could trip over. ??? Use nonslip pads under rugs. Don't use small??area rugs or throw rugs. ??? Don't walk in poorly lit areas. ??? Don't stand on chairs or wobbly ladders. ??? Be careful when reaching overhead or looking upward. This position can cause a loss of balance. ??? Be sure your shoes fit correctly, have nonslip bottoms, and are in good condition. ??? Be careful when going up and down curbs, and walking on uneven sidewalks. ??? If your balance is poor, think about using a cane or walker. ??? Stay as active as you can. Balance, flexibility, strength, and endurance all come from exercise. They all play a role in preventing falls. ??? If you have pets, know where they are before you stand up or walk so you don't trip over them. ??? Limit alcohol intake. Alcohol can cause balance problems and increase the risk for falls. ??? Use night-lights. ??? Have your eyes tested to be sure you are seeing well, even if you already wear glasses.? Follow-up Follow up with your healthcare provider, or as advised. If X-rays or CT scans were done, you will be told if there is a change in the reading, especially if it affects treatment. ?? Call 911 Call 911 if any of these happen: ??? Trouble breathing ??? Confusion ??? Trouble waking up ??? Fainting or loss of consciousness ??? Fast or very slow heart rate ??? Seizure ??? Trouble with speech or vision, weakness of an arm or leg ??? Trouble walking or talking, loss of balance, numbness or weakness on one side of your body, or facial droop ?? When to get medical advice Call your healthcare provider right away if any of these happen: ??? Repeated falls, including falls that seem to happen for no reason ??? Dizziness ??? Severe headache ??? Blood in vomit or stools (look black or red in color) ?? Last Reviewed Date: 2022 ?? [id number] [employer]. All rights reserved. This information is not intended as a substitute for professional medical care. Always follow your healthcare professional's instructions. ?? Patient Care team information Care Team Personnel Name: Not on Staff, PCP Position: S Physician (General Medicine) Member Role: PCP Name: Sera Zamora Position: [facility] ED TA [facility] Member Role: Regeneration Operator Name: Elias Cleveland MD Position: [facility] Resident Member Role: ED Resident Address: Address: [address] [place] [address] Name: Iebth Miles MD Position: [facility] ED Medicine MD Member Role: Admitting Physician Address: Address: [address] [place] [address] Name: Jordin Mancini RN Position: [facility] ED RN W/OE and Tasks Member Role: Patient Care Provider
== END 2023-07-01 12:04 | disposition left against medical advice (07) ==
LOC: HO.ED 11:49
PROVIDERS: Emergency Provider Emergency Medicine
DX: F10.230 Alcohol dependence with withdrawal, uncomplicated (principal); Y90.9 Presence of alcohol in blood, level not specified; F20.9 Schizophrenia, unspecified
CPT/HCPCS: 99282; 99283

== ENCOUNTER 2023-07-03 15:23 | Emergency (ER) | payer MEDICAID, SELFPAY ==
--- NOTE | 2023-07-03 15:36 | ED_ITS ---
HPI - General Adult General Chief complaint: ETOH/Substance Use Stated complaint: Seeking Detox Time Seen by Provider: 07/03/23 16:01 Source: patient Mode of arrival: ambulatory Limitations: no limitations History of Present Illness HPI narrative: patient drinking heavy for last 6 month been to different hospitals including [facility] Lizandro did not want to stay had drink 30 minutes ago after arrival also patient does want to stay in the ER patient was seen at [facility] yesterday with lab workup done patient seen by motor coach supervisor and sections were given to go to detox Related Data Allergies Allergy/AdvReac Type Severity Reaction Status Date / Time SEAFOOD Allergy Unknown UNK Uncoded 07/03/23 15:36 Review of Systems Review of Systems: Yes all other systems are reviewed and are negative [facility] Social History Social History Alcohol intake: current Alcohol intake frequency: 3 or more drinks per day Alcohol type: hard liquor Smoked in Last 30 Days: Yes Use of substances other than those prescribed or required for medical reasons: Refusing to respond Advance Directives: No Advance Directives Information Provided: No Physical Exam ED Vital Signs: Vital Signs - 24 hr 07/03/23 15:37 07/03/23 16:18 Temperature 97.8 F Pulse Rate 129 H 129 H Respiratory Rate 18 17 Blood Pressure 128/77 117/75 Pulse Oximetry 97 96 Oxygen Delivery Method Room Air Room Air BMI result Body Mass Index 20.4 Appearance: Alert. Oriented X3. No acute distress. etoh+ Eyes: PERRLA, No Nystagmus ENT: Pharynx normal. Oral Mucosa moist Neck: Normal inspection. Neck supple. CVS: Normal heart rate and rhythm. Pulses normal. Respiratory: No respiratory distress. Equal air entry bilateral, no wheezing/rales/rhonchi Abdomen: Soft and nontender. Bowel sounds are present, no mass palpable, no CVA tenderness Skin: Skin warm and dry. Normal skin color. Normal skin turgor. Extremities: No lower extremity edema. No calf tenderness Neuro: Oriented X 3. No motor deficit. steady gait Course Course Course Narrative: This is a rapid medical exam: Additional HPI, ROS, PE not included below will be deferred to primary provider. Patient is a 27-year-old female presenting to the emergency department requesting detox from alcohol. Father reports that patient was recently inpatient at [facility] and was brought to the ED at [facility] last night. He states that Lizandro recommended patient come here for medical clearance. Patient denies drug use, father reports last drink was 1 hour ago. Father reports history of detox seiures as well as schizophrenia. Patient minimally cooperative with assessment. Plan: labs, UA, urine drug screen Medical Decision Making Medical Decision Making [facility] Narrative: Patient with alcohol abuse refusing to go to detox ambulatory alert oriented x3 will discharge patient home with family Lab Data [facility] Lab Attestation statement: I reviewed the patient's lab results. 07/03/23 16:46 07/03/23 16:46 Labs: Lab Results 07/03/23 07/03/23 07/03/23 Range/Units 16:38 16:46 16:46 WBC 4.9 (4.8-10.8) X10*3/uL RBC 2.98 L D (4.20-5.50) X10*6/uL Hgb 8.7 L D (12.0-16.0) g/dl Hct 27.5 L (37.0-47.0) % MCV 92.3 (80.0-98.0) fL MCH 29.2 (27.0-33.0) pg MCHC 31.6 (31.0-35.0) g/dl RDW 15.5 (11.0-16.0) % Plt Count 169 (160-400) X10*3/uL MPV 9.9 (9.4-12.3) fL Immature Gran % (Auto) 0.4 (0.0-0.4) % Neut % (Auto) 63.9 (45-73) % Lymph % (Auto) 26.5 (20-40) % [place] % (Auto) 5.1 (2-11) % Eos % (Auto) 3.3 (0-4) % Baso % (Auto) 0.8 (0-2) % Lymph # (Auto) 1.3 (1.2-4.9) X10*3/uL [place] # (Auto) 0.3 (0.1-1.2) X10*3/uL Eos # (Auto) 0.2 (0.0-0.4) X10*3/uL Baso # (Auto) 0.0 (0.0-0.2) X10*3/uL Abs Immat Gran (auto) 0.02 (0.00-0.03) X10*3/uL Absolute Neuts (auto) 3.1 (2.0-8.3) x10*3/uL Absolute Nucleated RBC 0.020 H (0.0-0.012) X10*3/uL Nucleated RBC % (auto) 0.4 H (0.0-0.2) /100WBC Smear Tech's Comments VERIFIED Sodium 140 (135-145) mmol/L Potassium 3.2 L (3.3-5.1) mmol/L Chloride 111 H (96-108) mmol/L Carbon Dioxide 18 L (22-29) mmol/L Anion Gap 14 (12-20) BUN < 3 L (9-16) mg/dL Creatinine 0.62 (0.5-1.4) mg/dL Estim Creat Clear Calc 119.3 Estimated GFR > 60 Random Glucose 231 H (60-115) mg/dL Calcium 8.5 D (8.4-10.2) mg/dL Total Bilirubin 0.2 (0.0-1.0) mg/dL AST 35 H (5-31) U/L ALT 14 (0-31) U/L Alkaline Phosphatase 79 (39-117) U/L Total Protein 6.7 (6.5-8.0) g/dL Albumin 3.4 L (3.5-5.0) g/dL Beta HCG, Quant < 2 mIU/mL Urine Color Urine Appearance Urine pH (5.0-9.0) Ur Specific [place] (1.005-1.025) Urine Protein (Neg-Trace) mg/dL Urine Glucose (UA) (Negative) mg/dL Urine Ketones (Negative) mg/dL Urine Blood (Negative) Urine Nitrite (Negative) Ur Leukocyte Esterase (Negative) Urine Opiates Screen (Not Detect) Urine Fentanyl Screen (Not Detect) Ur Barbiturates Screen (Not Detect) Ur Phencyclidine Scrn (Not Detect) Ur Amphetamines Screen (Not Detect) U Benzodiazepines Scrn (Not Detect) Urine Cocaine Screen (Not Detect) U Marijuana (THC) Screen (Not Detect) Ethyl Alcohol 271 mg/dL COVID-19 (RACHEL) Negative (Negative) COVID-19 Clin Com See Note 07/03/23 07/03/23 Range/Units 16:52 16:52 WBC (4.8-10.8) X10*3/uL RBC (4.20-5.50) X10*6/uL Hgb (12.0-16.0) g/dl Hct (37.0-47.0) % MCV (80.0-98.0) fL MCH (27.0-33.0) pg MCHC (31.0-35.0) g/dl RDW (11.0-16.0) % Plt Count (160-400) X10*3/uL MPV (9.4-12.3) fL Immature Gran % (Auto) (0.0-0.4) % Neut % (Auto) (45-73) % Lymph % (Auto) (20-40) % [place] % (Auto) (2-11) % Eos % (Auto) (0-4) % Baso % (Auto) (0-2) % Lymph # (Auto) (1.2-4.9) X10*3/uL [place] # (Auto) (0.1-1.2) X10*3/uL Eos # (Auto) (0.0-0.4) X10*3/uL Baso # (Auto) (0.0-0.2) X10*3/uL Abs Immat Gran (auto) (0.00-0.03) X10*3/uL Absolute Neuts (auto) (2.0-8.3) x10*3/uL Absolute Nucleated RBC (0.0-0.012) X10*3/uL Nucleated RBC % (auto) (0.0-0.2) /100WBC Smear Tech's Comments Sodium (135-145) mmol/L Potassium (3.3-5.1) mmol/L Chloride (96-108) mmol/L Carbon Dioxide (22-29) mmol/L Anion Gap (12-20) BUN (9-16) mg/dL Creatinine (0.5-1.4) mg/dL Estim Creat Clear Calc Estimated GFR Random Glucose (60-115) mg/dL Calcium (8.4-10.2) mg/dL Total Bilirubin (0.0-1.0) mg/dL AST (5-31) U/L ALT (0-31) U/L Alkaline Phosphatase (39-117) U/L Total Protein (6.5-8.0) g/dL Albumin (3.5-5.0) g/dL Beta HCG, Quant mIU/mL Urine Color Yellow Urine Appearance Clear Urine pH 6.0 (5.0-9.0) Ur Specific [place] <= 1.005 (1.005-1.025) Urine Protein Negative (Neg-Trace) mg/dL Urine Glucose (UA) 250 H (Negative) mg/dL Urine Ketones Negative (Negative) mg/dL Urine Blood Negative (Negative) Urine Nitrite Negative (Negative) Ur Leukocyte Esterase Negative (Negative) Urine Opiates Screen Not Detected (Not Detect) Urine Fentanyl Screen Not Detected (Not Detect) Ur Barbiturates Screen POSITIVE H (Not Detect) Ur Phencyclidine Scrn Not Detected (Not Detect) Ur Amphetamines Screen Not Detected (Not Detect) U Benzodiazepines Scrn Not Detected (Not Detect) Urine Cocaine Screen Not Detected (Not Detect) U Marijuana (THC) Screen Not Detected (Not Detect) Ethyl Alcohol mg/dL COVID-19 (RACHEL) (Negative) COVID-19 Clin Com Discharge Plan Discharge Clinical Impression: Alcoholic intoxication Patient Disposition: Home, Self-Care Instructions: Alcohol Intoxication (ED) Additional Instructions: stop drinking alcohol follow-up with detox Interventions: ED Discharge Assessment Last Done: 07/03/23 19:00 Discharge Date/Time: 07/03/23 19:01
[2023-07-03 15:37] VITALS: BP 128/77; PULSE 129; RESP 18; TEMP 36.6; O2SAT 97; BMI 20.4
[2023-07-03 16:18] VITALS: BP 117/75; PULSE 129; RESP 17; O2SAT 96
--- NOTE | 2023-07-03 16:29 | PC.NURSE ---
pt alert and oriented to self; respirations even and unlabored, vss, sinus tachy on monitor 115 bpm, skin wpd. ciwa score 5; pt had last drink approx 30min-1hr ago. dad at bedside requesting for pt to detox; educated that pt will be provided with information however she can make independent decisions. awaiting primary eval; pt changed into hospital attire; call vu within reach.
[2023-07-03 16:58] LABS: Basophils Percent Auto 0.8 % (0-2); Eosinophils Absolute Auto 0.2 X10*3/uL (0.0-0.4); Eosinophils Percent Auto 3.3 % (0-4); Hematocrit 27.5 % (37.0-47.0); Hemoglobin 8.7 g/dl (12.0-16.0); Imm Gran Abs Auto 0.02 X10*3/uL (0.00-0.03); Imm Gran Pct Auto 0.4 % (0.0-0.4); Lymphocytes Absolute Auto 1.3 X10*3/uL (1.2-4.9); Lymphocytes Percent Auto 26.5 % (20-40); MANUAL DIFF FLAG SCAN; Mean Corpuscular HGB Conc 31.6 g/dl (31.0-35.0); Mean Corpuscular Hemoglobin 29.2 pg (27.0-33.0); Mean Corpuscular Volume 92.3 fL (80.0-98.0); Mean Platelet Volume 9.9 fL (9.4-12.3); Monocytes Absolute Auto 0.3 X10*3/uL (0.1-1.2); Monocytes Percent Auto 5.1 % (2-11); NRBC Pct Auto 0.4 /100WBC (0.0-0.2); Neutrophils Absolute Auto 3.1 x10*3/uL (2.0-8.3); Neutrophils Percent Auto 63.9 % (45-73); PLT CLUMP 1; Red Blood Count 2.98 X10*6/uL (4.20-5.50); Red Cell Distribution Width 15.5 % (11.0-16.0); SCAN SMEAR FLAG 1
[2023-07-03 17:00] LABS: Appearance Urine Clear; Color Urine Yellow; Glucose Urine UA 250 mg/dL (Negative); Leukocyte Esterase Urine Negative (Negative); Nitrite Urine Negative (Negative); Specific Gravity - Urine <= 1.005 (1.005-1.025); Urine Blood Negative (Negative); Urine Ketones Negative (Negative); Urine Protein Negative (Neg-Trace)
[2023-07-03 17:12] LABS: Amphetamine Screen Urine Not Detected (Not Detect); Barbiturates, Urine POSITIVE (Not Detect); Benzodiazepines Screen Urine Not Detected (Not Detect); Cannabinoid Screen Urine Not Detected (Not Detect); Cocaine Screen Urine Not Detected (Not Detect); Fentanyl, urine Not Detected (Not Detect); Opiate Screen Urine Not Detected (Not Detect); Phencyclidine Screen Urine Not Detected (Not Detect)
[2023-07-03 17:23] LABS: Alanine Aminotransferase 14 U/L (0-31); Albumin Level 3.4 g/dL (3.5-5.0); Alkaline Phosphatase 79 U/L (39-117); Anion Gap 14 (12-20); Aspartate Amino Transferase 35 U/L (5-31); Bilirubin Total 0.2 mg/dL (0.0-1.0); Blood Urea Nitrogen < 3 mg/dL (9-16); Calcium 8.5 mg/dL (8.4-10.2); Carbon Dioxide 18 mmol/L (22-29); Chloride 111 mmol/L (96-108); Creatinine Clr Calc Pharmacy 119.3; Estimated Glomerular Filt Rate > 60; Ethanol 271 mg/dL; Glucose Random 231 mg/dL (60-115); HCG Quantitative < 2 mIU/mL; Potassium 3.2 mmol/L (3.3-5.1); Sodium 140 mmol/L (135-145); Total Protein 6.7 g/dL (6.5-8.0)
--- NOTE | 2023-07-03 17:37 | MHC.RECOVSUP ---
Attempted to meet with pt in ED$ who is here for JOJO. At the time pt is unable to communicate and will request RC to meet them tonight.
[2023-07-03 17:40] LABS: COVID-19 Test Negative (Negative); IDNOW Serial# 6674DD1D
[2023-07-03 19:04] LABS: Platelet Count 169 X10*3/uL (160-400); White Blood Count 4.9 X10*3/uL (4.8-10.8)
[2023-07-03 19:05] LABS: SLIDE REVIEW VERIFIED
--- NOTE | 2023-07-03 20:28 | MHC.RECOVSUP ---
? Reason for consult:ETOH o? Current location:ED04? o? Identified substance use concern:? -? Support ? Intervention: o? Community resources provided ? Plan:N/A ? Additional information:RC met with this pt and discussed treatment options, pt agreed initially, but unfortunately left against medical advise.
== END 2023-07-03 19:01 | disposition home or self-care (01) ==
PROVIDERS: Registered Nurse Emergency; Emergency Provider Internal Medicine
DX: F10.129 Alcohol abuse with intoxication, unspecified (principal); Y90.8 Blood alcohol level of 240 mg/100 ml or more; Z20.822 Contact with and (suspected) exposure to COVID-19; Z20.828 Contact with and (suspected) exposure to other viral communicable diseases; Z79.899 Other long term (current) drug therapy
CPT/HCPCS: 36415; 80053; 80307; 81003; 84702; 85025; 87635; 99284

== ENCOUNTER 2023-07-04 15:01 | Inpatient (IN) | payer OTHER, MEDICAID, SELFPAY ==
[2023-07-04] VITALS (8 sets, daily range): BP systolic 115–146; BP diastolic 75–104; PULSE 80–117; RESP 16–20; TEMP 36.7; O2SAT 96–100; BMI 21.1
--- NOTE | ~2023-07-04 | XR_ITS ---
EXAMINATION: Thoracic and lumbar spine x-ray CLINICAL INFORMATION: Fall COMPARISON: None. TECHNIQUE: 2 views of the thoracic spine and 3 views of the lumbar spine FINDINGS: Lumbar spine: Bone alignment is normal. No fracture or dislocation. Normal disc spaces. Normal paraspinal soft tissues. Thoracic spine: Bone alignment is normal. No fracture or dislocation. Normal disc spaces. Normal paraspinal soft tissues. Subsegmental atelectasis in the left upper lung. XR/XR lumbar spine 2-3V IMPRESSION: No fracture. Left upper lobe subsegmental atelectasis.
--- NOTE | ~2023-07-04 | CT_ITS ---
EXAMINATION: CT HEAD WITHOUT CONTRAST CLINICAL INFORMATION: Status post fall. COMPARISON: None. TECHNIQUE: Contiguous axial imaging was performed from the skullbase to vertex without intravenous administration of contrast. This CT examination was performed using dose optimization techniques as appropriate, variously including the following: *Automated exposure control *Adjustment of mA and/or kV according to patient size (this includes techniques or standardized protocols for targeted exams where dose is matched to indication/reason for exam; i.e. extremities or head) *Use of iterative reconstruction technique DLP: 583 mGy-cm. FINDINGS: There is no evidence of acute intracranial hemorrhage or territorial infarction. No abnormal mass effect or midline shift is seen. [place] to white matter differentiation is well preserved. No extra-axial fluid collections are identified. The ventricles are normal in size. There is no abnormal attenuation within the brain parenchyma. The osseous structures and soft tissues are normal. The mastoid air cells are well aerated. There is mild to moderate right anterior ethmoid sinus mucosal thickening. CT/CT head/brain wo IV con IMPRESSION: No acute intracranial pathology.
--- NOTE | ~2023-07-04 | XR_ITS ---
EXAMINATION: Thoracic and lumbar spine x-ray CLINICAL INFORMATION: Fall COMPARISON: None. TECHNIQUE: 2 views of the thoracic spine and 3 views of the lumbar spine FINDINGS: Lumbar spine: Bone alignment is normal. No fracture or dislocation. Normal disc spaces. Normal paraspinal soft tissues. Thoracic spine: Bone alignment is normal. No fracture or dislocation. Normal disc spaces. Normal paraspinal soft tissues. Subsegmental atelectasis in the left upper lung. XR/XR thoracic spine 2V IMPRESSION: No fracture. Left upper lobe subsegmental atelectasis.
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
[2023-07-04] MEDS: Haloperidol Lactate 5 MG/ML VIAL IM (15:58)
[2023-07-04] MEDS: LORazepam 2 MG/ML VIAL IM (15:58)
[2023-07-04] MEDS: diphenhydrAMINE HCL 50 MG/ML VIAL IM (15:58)
--- NOTE | 2023-07-04 16:07 | MHC.CARE ---
T/w reached out to patient's father, Herve, , who reports that patient has been seen at this facility today and yesterday, at [facility] both days, at [facility] both days, has either eloped of been d/c due to declining services for detox. Dad reports concerns for her safety, stating when he is drivng her she will make suicidal statements, telling him to go go go faster faster and reports desire to . He reports she has been making suicidal statements, acting erratically, impulsively and does not appear to be stable at all. He reports he has attempted to section 35 her five times and she has admitted to 35 programs three times, the last for 90 days in [facility] in 2021. He reports patient's mother last year, patient continues to drink and act with high impulsivity, and with limited exhibited insight and judgment. She will be placed on section 12.
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
--- NOTE | 2023-07-04 17:00 | PC.NURSE ---
restraints removed- calm, coopeartive, sleeping. see restraint paper charting. provider aware and signed paper in person.
--- NOTE | 2023-07-04 17:09 | PC.NURSE ---
provider notified pt out of restraints- is calm, cooperative, and resting. respirations even. good circulation/sensation/movement.no injuries noted- safety maintained. 1:1 at bedside present.
--- NOTE | 2023-07-04 18:12 | PC.NURSE ---
pt sleeping. provider chris notified- states ok to allow pt to sleep and defer labs at this time. no distress. even respirations.
--- NOTE | 2023-07-04 22:57 | PC.NURSE ---
Patient is S/P mechanical and chemical restraints, currently in bed sleeping, labs were put on hold earlier due to restraints, we will approach patient when she is awake, no distress observed/reported, respiration +/=/non-labored bilaterally, will continue to monitor.
[2023-07-05 02:20] LABS: COVID-19 Test Negative (Negative); IDNOW Serial# 08D9AD1C
--- NOTE | 2023-07-05 02:30 | PC.NURSE ---
Patient lab draw attempted x 3, partially resulted, pending urine sample, currently in bed resting, will continue to monitor.
[2023-07-05 02:32] LABS: Salicylate < 5.0 mg/dL (15-30)
[2023-07-05 02:38] LABS: HCG Quantitative 6 mIU/mL
[2023-07-05 02:40] LABS: Anion Gap 15 (12-20); Blood Urea Nitrogen 4 mg/dL (9-16); Calcium 8.7 mg/dL (8.4-10.2); Carbon Dioxide 20 mmol/L (22-29); Chloride 107 mmol/L (96-108); Creatinine Clr Calc Pharmacy 119.6; Estimated Glomerular Filt Rate > 60; Ethanol < 10 mg/dL; Glucose Random 130 mg/dL (60-115); Potassium 3.8 mmol/L (3.3-5.1); Sodium 138 mmol/L (135-145)
[2023-07-05] MEDS: LORazepam 1 MG TABLET 2 MG PO ×4 (02:45→18:58)
[2023-07-05 03:28] LABS: Acetaminophen LAB < 17 mcg/mL (<30)
--- NOTE | 2023-07-05 06:08 | PC.NURSE ---
Patient woke up briefly, compliant with lab draw, hard stick and part of lab draw hemolyzed, urine pending unable to provide us urine sample, section 12 by care team for erratic behavior and sucidality, asymptomatic of ETOH withdrawal, Ativan 2 mg po administered for comfort at 0245 with + effect, pending care team evaluation, patient stated she doesn't want to go back to her home however no reason was given, behavior non concerning, will continue to monitor.
[2023-07-05 06:09] VITALS: RESP 16
[2023-07-05 06:34] VITALS: BP 112/71; PULSE 101; RESP 18; TEMP 36.5; O2SAT 98
[2023-07-05] MEDS: Ibuprofen 800 MG TABLET PO (06:48)
[2023-07-05 06:49] LABS: Appearance Urine Clear; Color Urine Yellow; Glucose Urine UA Negative (Negative); Leukocyte Esterase Urine Negative (Negative); Nitrite Urine Negative (Negative); Urine Blood Negative (Negative); Urine Ketones Negative (Negative); Urine Protein Trace mg/dL (Neg-Trace)
[2023-07-05 06:55] VITALS: BP 124/73; PULSE 73; RESP 18; TEMP 36.9; O2SAT 100
[2023-07-05 06:55] LABS: Amphetamine Screen Urine Not Detected (Not Detect); Barbiturates, Urine POSITIVE (Not Detect); Benzodiazepines Screen Urine Not Detected (Not Detect); Cannabinoid Screen Urine Not Detected (Not Detect); Cocaine Screen Urine Not Detected (Not Detect); Fentanyl, urine POSITIVE (Not Detect); Opiate Screen Urine Not Detected (Not Detect); Phencyclidine Screen Urine Not Detected (Not Detect)
--- NOTE | 2023-07-05 09:10 | PC.NURSE ---
This appeals writer called [facility] and spoke with May Plascencia RN who reported Ibeth D/C on 06/24 after a 54 day stay. May was able to verify the medications Ibeth was taking while inpatient on their Section 35 and this appeals writer entered them in the system. Gabapentin 800mg QID, Protonix 40mg once daily, Trazodone 100mg PO QHS PRN and Melatonin 5mg PO QHS PRN.
[2023-07-05] MEDS: Gabapentin 400 MG CAPSULE 800 MG PO ×3 (09:38→20:05)
[2023-07-05] MEDS: Omeprazole 20 MG CAPSULE.DR PO (09:38)
[2023-07-05 11:30] VITALS: BP 124/85; PULSE 91; RESP 16; O2SAT 100
[2023-07-05 16:14] VITALS: BP 111/75; PULSE 91; RESP 16; TEMP 36.5; O2SAT 98
[2023-07-05 16:20] LABS: Basophils Percent Auto 0.4 % (0-2); Eosinophils Absolute Auto 0.1 X10*3/uL (0.0-0.4); Eosinophils Percent Auto 1.8 % (0-4); Hematocrit 30.2 % (37.0-47.0); Hemoglobin 9.8 g/dl (12.0-16.0); Imm Gran Abs Auto 0.01 X10*3/uL (0.00-0.03); Imm Gran Pct Auto 0.2 % (0.0-0.4); Lymphocytes Absolute Auto 1.8 X10*3/uL (1.2-4.9); Lymphocytes Percent Auto 31.7 % (20-40); Mean Corpuscular HGB Conc 32.5 g/dl (31.0-35.0); Mean Corpuscular Hemoglobin 29.5 pg (27.0-33.0); Mean Platelet Volume 9.6 fL (9.4-12.3); Monocytes Absolute Auto 0.3 X10*3/uL (0.1-1.2); Monocytes Percent Auto 5.7 % (2-11); Neutrophils Absolute Auto 3.4 x10*3/uL (2.0-8.3); Neutrophils Percent Auto 60.2 % (45-73); Platelet Count 155 X10*3/uL (160-400); Red Blood Count 3.32 X10*6/uL (4.20-5.50); Red Cell Distribution Width 16.5 % (11.0-16.0); White Blood Count 5.6 X10*3/uL (4.8-10.8)
[2023-07-05 17:34] LABS: MANUAL DIFF FLAG NO
[2023-07-05 19:17] VITALS: BMI 20.5
[2023-07-05] MEDS: traZODone HCL 100 MG TABLET PO (20:05)
[2023-07-05] MEDS: Melatonin 3 MG TABLET 6 MG PO (20:05)
[2023-07-05 21:56] VITALS: BP 124/73; PULSE 73; RESP 18; TEMP 36.9
[2023-07-06] MEDS: traZODone HCL 100 MG TABLET PO (00:02)
[2023-07-06 06:00] VITALS: BP 99/66; PULSE 97; RESP 18
[2023-07-06] MEDS: Omeprazole 20 MG CAPSULE.DR PO (06:01)
[2023-07-06] MEDS: Folic Acid 1 MG TABLET PO (08:16)
[2023-07-06] MEDS: Multivitamin TABLET 1 TAB PO (08:16)
[2023-07-06] MEDS: Thiamine HCL 100 MG TABLET PO (08:16)
[2023-07-06] MEDS: Gabapentin 400 MG CAPSULE 800 MG PO ×3 (08:16→20:04)
[2023-07-06] MEDS: LORazepam 1 MG TABLET 2 MG PO ×3 (08:21→20:05)
--- NOTE | 2023-07-06 09:00 | ECG_ITS ---
Test Reason : ETOH Blood Pressure : / mmHG Vent. Rate : 069 BPM Atrial Rate : 069 BPM P-R Int : 124 ms QRS Dur : 084 ms QT Int : 400 ms P-R-T Axes : 020 054 046 degrees QTc Int : 428 ms Normal sinus rhythm Normal ECG No previous ECGs available Referred By: Muriel Alanis Electronically Signed By:NAOMY AMOR
[2023-07-06] MEDS: LORazepam 0.5 MG TABLET PO (11:52)
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
[2023-07-06] MEDS: OLANZapine 5 MG TABLET PO ×2 (16:12→20:04)
--- NOTE | 2023-07-06 17:26 | PC.NURSE ---
PT came to window tearful reporting, I don't feel good. Please call the doctor. I have pain everywhere . PT offered Acetaminophen 650mg and refused stating It doesn't work. I need strong stuff. PT refused x-rays stating It's not gonna show anything, I'm not doing it . PT appears to be displaying symptoms of opiate withdrawal however continues to deny use despite + UDS. PT refused Clonidine and continues to report she needs phenobarbital which has been denied by provider multiple times. VS stable, will continue to monitor.
[2023-07-06] MEDS: Divalproex Sodium ER 250 MG TAB.ER.24H PO (20:04)
[2023-07-06 20:05] VITALS: BP 117/87; PULSE 84; RESP 18; TEMP 36.6; O2SAT 99
[2023-07-06] MEDS: Melatonin 3 MG TABLET 6 MG PO (20:08)
[2023-07-07] MEDS: Omeprazole 20 MG CAPSULE.DR PO (06:26)
[2023-07-07 08:45] VITALS: BP 110/76; PULSE 9; RESP 18; TEMP 36.6; O2SAT 99
[2023-07-07 08:53] LABS: Ammonia 52 umol/L (13-55)
[2023-07-07] MEDS: Divalproex Sodium ER 250 MG TAB.ER.24H PO ×2 (08:55→20:30)
[2023-07-07] MEDS: Thiamine HCL 100 MG TABLET PO (08:55)
[2023-07-07] MEDS: Folic Acid 1 MG TABLET PO (08:55)
[2023-07-07] MEDS: Gabapentin 400 MG CAPSULE 800 MG PO ×3 (08:55→20:28)
[2023-07-07] MEDS: LORazepam 0.5 MG TABLET PO ×2 (08:55→20:29)
[2023-07-07] MEDS: Multivitamin TABLET 1 TAB PO (08:56)
[2023-07-07 09:00] LABS: Iron 19 mcg/dL (30-160); Percent Iron Saturation 7 % (15-50); Total Iron Binding Capacity 282 mcg/dL (228-428); Unsaturated Iron Binding 263 ug/dL
[2023-07-07 09:01] LABS: Estimated Average Glucose 108 mg/dL; Hemoglobin A1c % 5.4 %
[2023-07-07] MEDS: LORazepam 1 MG TABLET PO ×4 (09:05→23:23)
[2023-07-07 09:37] LABS: Folate 12.2 ng/mL (> or = 4.0); Vitamin B12 499 pg/mL (200-900)
[2023-07-07] MEDS: Nicotine 21 MG PATCH.TD24 TRANSDERMA (12:43)
[2023-07-07] MEDS: Acetaminophen 325 MG TABLET 650 MG PO (12:58)
--- NOTE | 2023-07-07 13:52 | HO.PSYCHPN ---
Subjective Subjective Date of Service: 07/07/23 Reason For Visit: Si, Polysubstance Use Disorder, Major Depression Subjective Notes: Conditional Voluntary Interim History: Pt reports I'm having a lot of problems. Pt reports muscleaches. Pt also reports feeling anxious and depressed. She reports feeling physically tired. 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) Skin/Breast: Reports system reviewed and no additional complaints, except as docu Reports behavioral changes and Reports confusion Psychiatric: Reports abnormal sleep pattern, Reports anxiety, Reports behavioral changes, Reports change in appetite, Reports confusion, Reports depression, Reports difficulty concentrating, Reports hopelessness, Reports irritability, Reports anhedonia and Reports suicidal ideation Endocrine: Reports no additional endocrine complaints Hematologic/Lymphatic: Reports no additional hematologic/lymphatic complaints Allergic/Immunologic: Reports no additional allergic/immunologic complaints Mental Status Exam Mental Status Exam Patient Appearance: Fatigued Patient Orientation: Person, Place and Situation Level of Consciousness: Sedated and Restless Patient Behavior: Talkative, Anxious, Fearful, Resistive to Care, Fatigued, Distractible, Confused and Impulsive Mood Description: Depressed and Angry Affect Description: Flat Patient Cognition Impaired: Yes Ability to Follow Directions: Fair Speech Pattern: Perseverating, Spontaneous Speech, Soft-Spoken and Long Pauses Memory Description: Remote Impaired and Episodic Impaired Diagnostics Vital Signs (24Hr): Vital Signs - 24 hr 07/06/23 20:05 07/07/23 08:45 Temperature 98 F 97.9 F Pulse Rate 84 9 L Respiratory Rate 18 18 Blood Pressure 117/87 110/76 Pulse Oximetry 99 99 Oxygen Delivery Method Room Air Room Air BMI result Body Mass Index 20.5 Labs 07/05/23 16:09 07/05/23 02:13 Labs: Laboratory Results - last 48 hr 07/05/23 07/07/23 07/07/23 16:09 08:25 08:25 WBC 5.6 RBC 3.32 L Hgb 9.8 L Hct 30.2 L MCV 91.0 MCH 29.5 MCHC 32.5 RDW 16.5 H Plt Count 155 L MPV 9.6 Immature Gran % (Auto) 0.2 Neut % (Auto) 60.2 Lymph % (Auto) 31.7 [place] % (Auto) 5.7 Eos % (Auto) 1.8 Baso % (Auto) 0.4 Lymph # (Auto) 1.8 [place] # (Auto) 0.3 Eos # (Auto) 0.1 Baso # (Auto) 0.0 Abs Immat Gran (auto) 0.01 Absolute Neuts (auto) 3.4 Absolute Nucleated RBC 0.000 Nucleated RBC % (auto) 0.0 Estimat Average Glucose 108 Hemoglobin A1c % 5.4 Iron 19 L TIBC 282 % Saturation 7 L Unsat Iron Binding 263 Ammonia Vitamin B12 Folate 07/07/23 07/07/23 08:25 08:25 WBC RBC Hgb Hct MCV MCH MCHC RDW Plt Count MPV Immature Gran % (Auto) Neut % (Auto) Lymph % (Auto) [place] % (Auto) Eos % (Auto) Baso % (Auto) Lymph # (Auto) [place] # (Auto) Eos # (Auto) Baso # (Auto) Abs Immat Gran (auto) Absolute Neuts (auto) Absolute Nucleated RBC Nucleated RBC % (auto) Estimat Average Glucose Hemoglobin A1c % Iron TIBC % Saturation Unsat Iron Binding Ammonia 52 Vitamin B12 499 Folate 12.2 Medications Medications Current Medications Acetaminophen (Acetaminophen 325 Mg Tablet) 650 mg PO Q6H PRN PRN Reason: Headache/Pain Mild Scale (1-3) Last Admin: 07/07/23 12:58 Dose: 650 mg Al Hydroxide/Mg Hydroxide (Magnesium Hydrox/Alum Hydrox 30 Ml Oral.Susp) 30 ml PO Q6H PRN PRN Reason: Heartburn/Nausea Cyclobenzaprine HCl (Cyclobenzaprine Hcl 5 Mg Tablet) 5 mg PO TID [facility] Diazepam (Diazepam 5 Mg Tablet) 10 mg PO ONCE ONE Stop: 07/07/23 13:47 Divalproex Sodium (Divalproex Sodium Er 250 Mg Tab.Er.24h) 250 mg PO BID [facility] Last Admin: 07/07/23 08:55 Dose: 250 mg Ferrous Sulfate (Ferrous Sulfate 324 Mg Tablet.Dr) 325 mg PO DAILY [facility] Folic Acid (Folic Acid 1 Mg Tablet) 1 mg PO DAILY [facility] Last Admin: 07/07/23 08:55 Dose: 1 mg Gabapentin (Gabapentin 400 Mg Capsule) 800 mg PO TID [facility] Last Admin: 07/07/23 08:55 Dose: 800 mg Hydroxyzine HCl (Hydroxyzine Hcl 25 Mg Tablet) 25 mg PO Q6H PRN PRN Reason: Anxiety Lorazepam (Lorazepam 0.5 Mg Tablet) 0.5 mg PO BID [facility] Last Admin: 07/07/23 08:55 Dose: 0.5 mg Lorazepam (Lorazepam 1 Mg Tablet) 1 mg PO Q4H PRN PRN Reason: ciwa 8-12 Last Admin: 07/07/23 12:58 Dose: 1 mg Lorazepam (Lorazepam 1 Mg Tablet) 2 mg PO Q4H PRN PRN Reason: ciwa 13-17 Magnesium Hydroxide (Milk Of Magnesia 30 Ml Oral.Susp) 30 ml PO DAILY PRN PRN Reason: Constipation Melatonin (Melatonin 3 Mg Tablet) 6 mg PO BEDTIME PRN PRN Reason: Sleep Last Admin: 07/06/23 20:08 Dose: 6 mg Multivitamins/Vitamin C (Multivitamin Tablet) 1 tab PO DAILY [facility] Last Admin: 07/07/23 08:56 Dose: 1 tab Nicotine (Nicotine 21 Mg Patch.Td24) 21 mg TRANSDERMA DAILY [facility] Last Admin: 07/07/23 12:43 Dose: 21 mg Nicotine Polacrilex (Nicotine Polacrilex 2 Mg Gum) 2 mg BUCCAL Q2H PRN PRN Reason: Nicotine Cravings Olanzapine (Olanzapine 5 Mg Tablet) 5 mg PO BEDTIME [facility] Last Admin: 07/06/23 20:04 Dose: 5 mg Olanzapine (Olanzapine 5 Mg Tablet) 5 mg PO Q4H PRN PRN Reason: agitation Omeprazole (Omeprazole 20 Mg Capsule.Dr) 20 mg PO DAILY@0630 [facility] Last Admin: 07/07/23 06:26 Dose: 20 mg Pharmacy Consult (Consult Rx Perform Med Rec) 1 each MISCELLANE ONCE PRN PRN Reason: Consult order Thiamine HCl (Thiamine Hcl 100 Mg Tablet) 100 mg PO DAILY [facility] Last Admin: 07/07/23 08:55 Dose: 100 mg Trazodone HCl (Trazodone Hcl 100 Mg Tablet) 100 mg PO BEDTIME PRN PRN Reason: Sleep Last Admin: 07/06/23 00:02 Dose: 100 mg Allergies Allergies Allergy/AdvReac Type Severity Reaction Status Date / Time SEAFOOD Allergy Unknown UNK Uncoded 07/03/23 15:36 Assessment & Plan Assessment & Plan (1) Bipolar disorder: Status: Acute Code(s): F31.9 - Bipolar disorder, unspecified (2) Alcohol use disorder: Status: Acute Code(s): F10.90 - Alcohol use, unspecified, uncomplicated (3) Polysubstance use disorder: Status: Acute Code(s): F19.90 - Other psychoactive substance use, unspecified, uncomplicated Plan 27 yo female, history of bipolar disorder, alcohol use disorder, polysubstance use disorder presents with family for SI, agitation requiring chemical and physical restraint in the ER. Long hx of addiction and mood destabilization. 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 Possibly detoxing from opiates, barbs and alcohol. Pt is a poor historian. Plan: CT Head, Cervial, Thoracic, Lumbar Spine Xrays, Rib xrays Iron profile, ammonia, lipids, A1C, TSH, B12, Folate Re-establish med regime Clonidine prn Olanzapine hs and prn for mood stabilization Depakote ER 250 mg bid Lorazepam 0.5 mg bid and prn Folate, Thiamine, MVI CIWA and COWS ?Need for Section 35 07/07- continue ciwa. started on muscle relaxant- flexeril. Reason for continued inpatient stay Substantial Risk for: inability to function Time Spent With Patient Time: Total time managing care of this patient today ____ minutes.
[2023-07-07] MEDS: diazePAM 5 MG TABLET 10 MG PO (14:12)
[2023-07-07] MEDS: Cyclobenzaprine HCl 5 MG TABLET PO ×2 (14:12→20:29)
[2023-07-07 17:25] VITALS: BP 111/67; PULSE 101; RESP 18; TEMP 36.7; O2SAT 99
[2023-07-07] MEDS: OLANZapine 5 MG TABLET PO (17:28)
[2023-07-07] MEDS: Melatonin 3 MG TABLET 6 MG PO (20:29)
[2023-07-07] MEDS: traZODone HCL 100 MG TABLET PO ×2 (20:29→23:23)
--- NOTE | 2023-07-07 21:11 | PC.NURSE ---
Pt submitted a Three Day Notice on Friday07/07/2023 up on 07/10/2023.
[2023-07-07] MEDS: hydrOXYzine HCL 25 MG TABLET PO (23:23)
[2023-07-08] MEDS: Omeprazole 20 MG CAPSULE.DR PO (06:15)
[2023-07-08] MEDS: LORazepam 1 MG TABLET PO ×2 (06:51→13:39)
[2023-07-08] MEDS: hydrOXYzine HCL 25 MG TABLET PO ×2 (06:53→19:30)
[2023-07-08] MEDS: Folic Acid 1 MG TABLET PO (08:52)
[2023-07-08] MEDS: LORazepam 0.5 MG TABLET PO (08:52)
[2023-07-08] MEDS: Ferrous Sulfate 324 MG TABLET.DR 325 MG PO (08:52)
[2023-07-08] MEDS: Multivitamin TABLET 1 TAB PO (08:53)
[2023-07-08] MEDS: Gabapentin 400 MG CAPSULE 800 MG PO ×2 (08:53→14:04)
[2023-07-08] MEDS: Cyclobenzaprine HCl 5 MG TABLET PO (08:53)
[2023-07-08] MEDS: Divalproex Sodium ER 250 MG TAB.ER.24H PO (08:53)
[2023-07-08] MEDS: Thiamine HCL 100 MG TABLET PO (08:53)
[2023-07-08 09:03] VITALS: BP 101/62; PULSE 91; TEMP 36.8; O2SAT 99
[2023-07-08] MEDS: Nicotine Polacrilex 2 MG GUM BUCCAL (10:13)
[2023-07-08] MEDS: Nicotine 21 MG PATCH.TD24 TRANSDERMA (11:32)
[2023-07-08] MEDS: Cyclobenzaprine HCl 10 MG TABLET PO ×3 (14:03→20:02)
[2023-07-08] MEDS: Acetaminophen 325 MG TABLET 650 MG PO ×2 (14:04→19:31)
--- NOTE | 2023-07-08 16:53 | HO.PSYCHPN ---
Subjective Subjective Date of Service: 07/08/23 Reason For Visit: Si, Polysubstance Use Disorder, Major Depression Subjective Notes: 3 Day (retracted) Healthcare Proxy: No Guardianship: No Medical Problems Affecting Mental Status: Yes (detox) Interim History: Reviewed with team. Med seeking. Presentation of multiple symptoms with pharmacological requests for mgt, Irritable. Appears overmedicated at times. Considering CAT on 07/09. Medication Compliance: Yes Side effects from medications: Yes (sedation at times) Attending Groups: No Review of Systems Acute medical concerns: No Medical Review of Systems: unchanged Mental Status Exam Mental Status Exam Patient Appearance: Fatigued and Disheveled Patient Orientation: Person, Place and Situation Level of Consciousness: Sedated and Restless Patient Behavior: Talkative, Restless, Anxious and Distractible Mood Description: Labile Affect Description: Labile Patient Cognition Impaired: Yes Speech Pattern: Spontaneous Speech and Rambling Memory Description: Remote Impaired Hallucinations: None Perceptual Disturbances: Depersonalization and Derealization Thought Process: Rumination Thought Content: positive for Perseveration and positive for Suicidal Ideation (denies) Depressive Symptoms: Increased Irritability Abnormal Motor Activity Signs and Symptoms: Agitation Judgement: Poor Diagnostics Vital Signs (24Hr): Vital Signs - 24 hr 07/07/23 17:25 07/08/23 09:03 Temperature 98.1 F 98.2 F Pulse Rate 101 H 91 Respiratory Rate 18 Blood Pressure 111/67 101/62 Pulse Oximetry 99 99 Oxygen Delivery Method Room Air Room Air Large Bore Nasal Cannula BMI result Body Mass Index 20.5 Labs 07/05/23 16:09 07/05/23 02:13 Labs: Laboratory Results - last 48 hr 07/07/23 07/07/23 07/07/23 08:25 08:25 08:25 Estimat Average Glucose 108 Hemoglobin A1c % 5.4 Iron 19 L TIBC 282 % Saturation 7 L Unsat Iron Binding 263 Ammonia 52 Vitamin B12 Folate 07/07/23 08:25 Estimat Average Glucose Hemoglobin A1c % Iron TIBC % Saturation Unsat Iron Binding Ammonia Vitamin B12 499 Folate 12.2 Imaging Radiology Impressions: ITS Impressions Lumbar Spine X-Ray 07/07/23 09:20 IMPRESSION: No fracture. Left upper lobe subsegmental atelectasis. Thoracic Spine X-Ray 07/07/23 09:20 IMPRESSION: No fracture. Left upper lobe subsegmental atelectasis. Medications Medications Current Medications Acetaminophen (Acetaminophen 325 Mg Tablet) 650 mg PO Q6H PRN PRN Reason: Headache/Pain Mild Scale (1-3) Last Admin: 07/08/23 14:04 Dose: 650 mg Al Hydroxide/Mg Hydroxide (Magnesium Hydrox/Alum Hydrox 30 Ml Oral.Susp) 30 ml PO Q6H PRN PRN Reason: Heartburn/Nausea Cyclobenzaprine HCl (Cyclobenzaprine Hcl 10 Mg Tablet) 10 mg PO TID [facility] Last Admin: 07/08/23 14:03 Dose: 10 mg Divalproex Sodium (Divalproex Sodium Er 250 Mg Tab.Er.24h) 250 mg PO BID [facility] Last Admin: 07/08/23 08:53 Dose: 250 mg Ferrous Sulfate (Ferrous Sulfate 324 Mg Tablet.Dr) 324 mg PO DAILY [facility] Folic Acid (Folic Acid 1 Mg Tablet) 1 mg PO DAILY [facility] Last Admin: 07/08/23 08:52 Dose: 1 mg Gabapentin (Gabapentin 400 Mg Capsule) 800 mg PO TID [facility] Last Admin: 07/08/23 14:04 Dose: 800 mg Hydroxyzine HCl (Hydroxyzine Hcl 25 Mg Tablet) 25 mg PO Q6H PRN PRN Reason: Anxiety Last Admin: 07/08/23 06:53 Dose: 25 mg Lorazepam (Lorazepam 0.5 Mg Tablet) 0.5 mg PO BID [facility] Last Admin: 07/08/23 08:52 Dose: 0.5 mg Lorazepam (Lorazepam 1 Mg Tablet) 1 mg PO Q4H PRN PRN Reason: ciwa 8-12 Last Admin: 07/08/23 13:39 Dose: 1 mg Lorazepam (Lorazepam 1 Mg Tablet) 2 mg PO Q4H PRN PRN Reason: ciwa 13-17 Magnesium Hydroxide (Milk Of Magnesia 30 Ml Oral.Susp) 30 ml PO DAILY PRN PRN Reason: Constipation Melatonin (Melatonin 3 Mg Tablet) 6 mg PO BEDTIME PRN PRN Reason: Sleep Last Admin: 07/07/23 20:29 Dose: 6 mg Multivitamins/Vitamin C (Multivitamin Tablet) 1 tab PO DAILY [facility] Last Admin: 07/08/23 08:53 Dose: 1 tab Nicotine (Nicotine 21 Mg Patch.Td24) 21 mg TRANSDERMA DAILY [facility] Last Admin: 07/08/23 11:32 Dose: 21 mg Nicotine Polacrilex (Nicotine Polacrilex 2 Mg Gum) 4 mg BUCCAL Q2H PRN PRN Reason: Nicotine Cravings Olanzapine (Olanzapine 5 Mg Tablet) 5 mg PO Q4H PRN PRN Reason: agitation Last Admin: 07/07/23 17:28 Dose: 5 mg Olanzapine (Olanzapine 5 Mg Tablet) 5 mg PO BID [facility] Omeprazole (Omeprazole 20 Mg Capsule.Dr) 20 mg PO DAILY@0630 [facility] Last Admin: 07/08/23 06:15 Dose: 20 mg Pharmacy Consult (Consult Rx Perform Med Rec) 1 each MISCELLANE ONCE PRN PRN Reason: Consult order Thiamine HCl (Thiamine Hcl 100 Mg Tablet) 100 mg PO DAILY [facility] Last Admin: 07/08/23 08:53 Dose: 100 mg Trazodone HCl (Trazodone Hcl 100 Mg Tablet) 100 mg PO BEDTIME PRN PRN Reason: Sleep Last Admin: 07/07/23 23:23 Dose: 100 mg Allergies Allergies Allergy/AdvReac Type Severity Reaction Status Date / Time SEAFOOD Allergy Unknown UNK Uncoded 07/03/23 15:36 Assessment & Plan Assessment & Plan (1) Bipolar disorder: Status: Acute Code(s): F31.9 - Bipolar disorder, unspecified (2) Alcohol use disorder: Status: Acute Code(s): F10.90 - Alcohol use, unspecified, uncomplicated (3) Polysubstance use disorder: Status: Acute Code(s): F19.90 - Other psychoactive substance use, unspecified, uncomplicated Plan 27 yo female, history of bipolar disorder, alcohol use disorder, polysubstance use disorder presents with family for SI, agitation requiring chemical and physical restraint in the ER. Long hx of addiction and mood destabilization. 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 Possibly detoxing from opiates, barbs and alcohol. Pt is a poor historian. Plan: CT Head, Cervial, Thoracic, Lumbar Spine Xrays, Rib xrays Iron profile, ammonia, lipids, A1C, TSH, B12, Folate Re-establish med regime Clonidine prn Olanzapine hs and prn for mood stabilization Depakote ER 250 mg bid Lorazepam 0.5 mg bid and prn Folate, Thiamine, MVI CIWA and COWS ?Need for Section 35 07/07- continue ciwa. started on muscle relaxant- flexeril. 07/08- detox continues, encourage treatment, retracted TDN Patient educated on: medication risk/benefits Informed Consent: further education needed Reason for continued inpatient stay Substantial Risk for: med/psych decompensation Time Spent With Patient Time: Total time managing care of this patient today ____ minutes.
--- NOTE | 2023-07-08 17:59 | PC.NURSE ---
Pt revoked 3-day notice on 07/08/23. , [facility], and SW aware.
[2023-07-08 18:00] VITALS: BP 111/82; PULSE 142; RESP 20; TEMP 36.2; O2SAT 97
[2023-07-08] MEDS: Magnesium Hydrox/Alum Hydrox 30 ML ORAL.SUSP PO (18:32)
[2023-07-08] MEDS: LORazepam 1 MG TABLET 2 MG PO (19:31)
[2023-07-08] MEDS: traZODone HCL 100 MG TABLET PO (20:02)
[2023-07-08] MEDS: Melatonin 3 MG TABLET 6 MG PO (20:02)
[2023-07-08] MEDS: OLANZapine 5 MG TABLET PO (20:11)
[2023-07-09] MEDS: Omeprazole 20 MG CAPSULE.DR PO (05:46)
[2023-07-09 06:00] VITALS: BP 104/82; PULSE 90; RESP 18; O2SAT 98
[2023-07-09] MEDS: LORazepam 1 MG TABLET PO ×3 (06:03→14:10)
[2023-07-09 08:00] VITALS: PULSE 98
[2023-07-09] MEDS: Cyclobenzaprine HCl 10 MG TABLET PO ×3 (09:04→21:26)
[2023-07-09] MEDS: Magnesium Hydrox/Alum Hydrox 30 ML ORAL.SUSP PO (09:04)
[2023-07-09] MEDS: Nicotine 21 MG PATCH.TD24 TRANSDERMA (09:04)
[2023-07-09] MEDS: Thiamine HCL 100 MG TABLET PO (09:05)
[2023-07-09] MEDS: Gabapentin 400 MG CAPSULE 800 MG PO ×3 (09:05→21:26)
[2023-07-09] MEDS: Folic Acid 1 MG TABLET PO (09:05)
[2023-07-09] MEDS: LORazepam 0.5 MG TABLET PO ×2 (09:05→21:26)
[2023-07-09] MEDS: Multivitamin TABLET 1 TAB PO (09:05)
[2023-07-09] MEDS: Ferrous Sulfate 324 MG TABLET.DR PO (09:05)
[2023-07-09] MEDS: Divalproex Sodium ER 250 MG TAB.ER.24H PO ×2 (09:05→21:26)
[2023-07-09] MEDS: OLANZapine 5 MG TABLET PO ×3 (09:05→21:26)
[2023-07-09] MEDS: hydrOXYzine HCL 25 MG TABLET PO (14:10)
[2023-07-09] MEDS: Acetaminophen 325 MG TABLET 650 MG PO (14:10)
[2023-07-09 16:00] VITALS: PULSE 78
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
[2023-07-09] MEDS: Nicotine Polacrilex 2 MG GUM 4 MG BUCCAL (16:55)
[2023-07-09 18:00] VITALS: BP 112/86; PULSE 90; RESP 18; TEMP 36.1; O2SAT 98
[2023-07-09] MEDS: Melatonin 3 MG TABLET 6 MG PO (21:26)
[2023-07-09] MEDS: traZODone HCL 100 MG TABLET PO (22:55)
[2023-07-10] MEDS: Omeprazole 20 MG CAPSULE.DR PO (06:52)
[2023-07-10 08:36] VITALS: BP 108/56; PULSE 80; RESP 16; TEMP 36.6; O2SAT 99
[2023-07-10] MEDS: Divalproex Sodium ER 250 MG TAB.ER.24H PO ×2 (08:47→20:55)
[2023-07-10] MEDS: Multivitamin TABLET 1 TAB PO (08:47)
[2023-07-10] MEDS: Folic Acid 1 MG TABLET PO (08:47)
[2023-07-10] MEDS: Nicotine 21 MG PATCH.TD24 TRANSDERMA (08:47)
[2023-07-10] MEDS: LORazepam 0.5 MG TABLET PO ×2 (08:47→20:55)
[2023-07-10] MEDS: Thiamine HCL 100 MG TABLET PO (08:47)
[2023-07-10] MEDS: Ferrous Sulfate 324 MG TABLET.DR PO (08:48)
[2023-07-10] MEDS: OLANZapine 5 MG TABLET PO (08:48)
[2023-07-10] MEDS: Cyclobenzaprine HCl 10 MG TABLET PO ×3 (08:48→20:56)
[2023-07-10] MEDS: Gabapentin 400 MG CAPSULE 800 MG PO ×3 (08:48→20:55)
--- NOTE | 2023-07-10 13:02 | HO.PSYCHPN ---
Subjective Subjective Date of Service: 07/10/23 Reason For Visit: Si, Polysubstance Use Disorder, Major Depression Subjective Notes: Conditional Voluntary Healthcare Proxy: No Guardianship: No Medical Problems Affecting Mental Status: No Interim History: Irritable, angry, confrontive, difficult to engage You are not giving enough medications . Review of meds with changes. Reports no sleep last night-team report is different Reports nausea, chills, bones hurt Tells team there are sx of UTI and possible . Decline test, accepted urine culture Medication Compliance: Yes Side effects from medications: No Attending Groups: No Review of Systems Acute medical concerns: No Medical Review of Systems: unchanged Mental Status Exam Mental Status Exam Patient Appearance: Fatigued and Disheveled Patient Orientation: Person, Place and Situation Level of Consciousness: Sedated and Restless Patient Behavior: Talkative, Restless, Anxious and Distractible Mood Description: Labile Affect Description: Labile Patient Cognition Impaired: Yes Speech Pattern: Spontaneous Speech and Rambling Memory Description: Remote Impaired Hallucinations: None Perceptual Disturbances: Depersonalization and Derealization Thought Process: Rumination Thought Content: positive for Perseveration and positive for Suicidal Ideation (denies) Depressive Symptoms: Increased Irritability Abnormal Motor Activity Signs and Symptoms: Agitation Judgement: Poor Diagnostics Vital Signs (24Hr): Vital Signs - 24 hr 07/09/23 18:00 07/10/23 08:36 Temperature 97 F 97.8 F Pulse Rate 90 80 Respiratory Rate 18 16 Blood Pressure 112/86 108/56 L Pulse Oximetry 98 99 Oxygen Delivery Method Room Air BMI result Body Mass Index 20.5 Labs 07/05/23 16:09 07/05/23 02:13 Imaging Radiology Impressions: ITS Impressions Lumbar Spine X-Ray 07/07/23 09:20 IMPRESSION: No fracture. Left upper lobe subsegmental atelectasis. Thoracic Spine X-Ray 07/07/23 09:20 IMPRESSION: No fracture. Left upper lobe subsegmental atelectasis. Medications Medications Current Medications Acetaminophen (Acetaminophen 325 Mg Tablet) 650 mg PO Q6H PRN PRN Reason: Headache/Pain Mild Scale (1-3) Last Admin: 07/09/23 14:10 Dose: 650 mg Al Hydroxide/Mg Hydroxide (Magnesium Hydrox/Alum Hydrox 30 Ml Oral.Susp) 30 ml PO Q6H PRN PRN Reason: Heartburn/Nausea Last Admin: 07/09/23 09:04 Dose: 30 ml Cyclobenzaprine HCl (Cyclobenzaprine Hcl 10 Mg Tablet) 10 mg PO TID [facility] Last Admin: 07/10/23 08:48 Dose: 10 mg Divalproex Sodium (Divalproex Sodium Er 250 Mg Tab.Er.24h) 250 mg PO BID [facility] Last Admin: 07/10/23 08:47 Dose: 250 mg Ferrous Sulfate (Ferrous Sulfate 324 Mg Tablet.Dr) 324 mg PO DAILY [facility] Last Admin: 07/10/23 08:48 Dose: 324 mg Folic Acid (Folic Acid 1 Mg Tablet) 1 mg PO DAILY [facility] Last Admin: 07/10/23 08:47 Dose: 1 mg Gabapentin (Gabapentin 400 Mg Capsule) 800 mg PO TID [facility] Last Admin: 07/10/23 08:48 Dose: 800 mg Hydroxyzine HCl (Hydroxyzine Hcl 25 Mg Tablet) 25 mg PO Q6H PRN PRN Reason: Anxiety Last Admin: 07/09/23 14:10 Dose: 25 mg Lorazepam (Lorazepam 0.5 Mg Tablet) 0.5 mg PO BID [facility] Last Admin: 07/10/23 08:47 Dose: 0.5 mg Lorazepam (Lorazepam 1 Mg Tablet) 1 mg PO Q4H PRN PRN Reason: ciwa 8-12 Last Admin: 07/09/23 14:10 Dose: 1 mg Lorazepam (Lorazepam 1 Mg Tablet) 2 mg PO Q4H PRN PRN Reason: ciwa 13-17 Last Admin: 07/08/23 19:31 Dose: 2 mg Magnesium Hydroxide (Milk Of Magnesia 30 Ml Oral.Susp) 30 ml PO DAILY PRN PRN Reason: Constipation Melatonin (Melatonin 3 Mg Tablet) 6 mg PO BEDTIME PRN PRN Reason: Sleep Last Admin: 07/09/23 21:26 Dose: 6 mg Multivitamins/Vitamin C (Multivitamin Tablet) 1 tab PO DAILY [facility] Last Admin: 07/10/23 08:47 Dose: 1 tab Nicotine (Nicotine 21 Mg Patch.Td24) 21 mg TRANSDERMA DAILY [facility] Last Admin: 07/10/23 08:47 Dose: 21 mg Nicotine Polacrilex (Nicotine Polacrilex 2 Mg Gum) 4 mg BUCCAL Q2H PRN PRN Reason: Nicotine Cravings Last Admin: 07/09/23 16:55 Dose: 4 mg Olanzapine (Olanzapine 5 Mg Tablet) 5 mg PO Q4H PRN PRN Reason: agitation Last Admin: 07/09/23 14:11 Dose: 5 mg Olanzapine (Olanzapine 5 Mg Tablet) 5 mg PO BID [facility] Last Admin: 07/10/23 08:48 Dose: 5 mg Omeprazole (Omeprazole 20 Mg Capsule.) 20 mg PO DAILY@0630 [facility] Last Admin: 07/10/23 06:52 Dose: 20 mg Pharmacy Consult (Consult Rx Perform Med Rec) 1 each MISCELLANE ONCE PRN PRN Reason: Consult order Thiamine HCl (Thiamine Hcl 100 Mg Tablet) 100 mg PO DAILY [facility] Last Admin: 07/10/23 08:47 Dose: 100 mg Trazodone HCl (Trazodone Hcl 100 Mg Tablet) 100 mg PO BEDTIME PRN PRN Reason: Sleep Last Admin: 07/09/23 22:55 Dose: 100 mg Allergies Allergies Allergy/AdvReac Type Severity Reaction Status Date / Time SEAFOOD Allergy Unknown UNK Uncoded 07/03/23 15:36 Assessment & Plan Assessment & Plan (1) Bipolar disorder: Status: Acute Code(s): F31.9 - Bipolar disorder, unspecified (2) Alcohol use disorder: Status: Acute Code(s): F10.90 - Alcohol use, unspecified, uncomplicated (3) Polysubstance use disorder: Status: Acute Code(s): F19.90 - Other psychoactive substance use, unspecified, uncomplicated Plan 27 yo female, history of bipolar disorder, alcohol use disorder, polysubstance use disorder presents with family for SI, agitation requiring chemical and physical restraint in the ER. Long hx of addiction and mood destabilization. 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 Possibly detoxing from opiates, barbs and alcohol. Pt is a poor historian. Plan: CT Head, Cervial, Thoracic, Lumbar Spine Xrays, Rib xrays Iron profile, ammonia, lipids, A1C, TSH, B12, Folate Re-establish med regime Clonidine prn Olanzapine hs and prn for mood stabilization Depakote ER 250 mg bid Lorazepam 0.5 mg bid and prn Folate, Thiamine, MVI CIWA and COWS ?Need for Section 35 07/07- continue ciwa. started on muscle relaxant- flexeril. 07/08- detox continues, encourage treatment, retracted TDN 07/09- encourage treatment 07/10 Lorazepam 2 mg po x 1 dose. CIWA when we met today 18 Pepto Bismol prn Discontinue scheduled olanzapine Chlorpromazine 100 mg hs prn agitation, insomnia (Pt is clear that she is awake all night) Clonidine 0.1 mg bid prn withdrawal sx Lorazepam taper beginning 07/11. Patient educated on: medication risk/benefits and therapeutic strategies Informed Consent: further education needed Reason for continued inpatient stay Substantial Risk for: rapid decompensation Time Spent With Patient Time: Total time managing care of this patient today ____ minutes.
[2023-07-10] MEDS: Nicotine Polacrilex 2 MG GUM 4 MG BUCCAL (13:27)
[2023-07-10] MEDS: Lidocaine 4 % Patch ADH..PATCH 2 PATCH TRANSDERMA (14:07)
[2023-07-10] MEDS: Acetaminophen 325 MG TABLET 650 MG PO (14:07)
[2023-07-10] MEDS: LORazepam 1 MG TABLET 2 MG PO (14:08)
[2023-07-10] MEDS: Bismuth Subsalicylate 262 MG TABLET PO (14:55)
[2023-07-10] MEDS: Magnesium Hydrox/Alum Hydrox 30 ML ORAL.SUSP PO ×2 (15:30→21:01)
[2023-07-10 15:32] LABS: MANUAL DIFF FLAG NO
[2023-07-10 16:25] LABS: Basophils Percent Auto 0.5 % (0-2); Eosinophils Absolute Auto 0.1 X10*3/uL (0.0-0.4); Eosinophils Percent Auto 2.7 % (0-4); Hematocrit 29.2 % (37.0-47.0); Hemoglobin 9.1 g/dl (12.0-16.0); Imm Gran Abs Auto 0.01 X10*3/uL (0.00-0.03); Imm Gran Pct Auto 0.3 % (0.0-0.4); Lymphocytes Absolute Auto 1.4 X10*3/uL (1.2-4.9); Lymphocytes Percent Auto 37.8 % (20-40); Mean Corpuscular HGB Conc 31.2 g/dl (31.0-35.0); Mean Corpuscular Hemoglobin 29.3 pg (27.0-33.0); Mean Corpuscular Volume 93.9 fL (80.0-98.0); Mean Platelet Volume 9.8 fL (9.4-12.3); Monocytes Absolute Auto 0.4 X10*3/uL (0.1-1.2); Neutrophils Absolute Auto 1.8 x10*3/uL (2.0-8.3); Neutrophils Percent Auto 48.7 % (45-73); Platelet Count 218 X10*3/uL (160-400); Red Blood Count 3.11 X10*6/uL (4.20-5.50); Red Cell Distribution Width 17.8 % (11.0-16.0); White Blood Count 3.7 X10*3/uL (4.8-10.8)
[2023-07-10 17:03] LABS: Alanine Aminotransferase 9 U/L (0-31); Albumin Level 3.9 g/dL (3.5-5.0); Alkaline Phosphatase 65 U/L (39-117); Anion Gap 12 (12-20); Aspartate Amino Transferase 13 U/L (5-31); Bilirubin Total 0.1 mg/dL (0.0-1.0); Blood Urea Nitrogen 11 mg/dL (9-16); Calcium 9.8 mg/dL (8.4-10.2); Carbon Dioxide 27 mmol/L (22-29); Chloride 103 mmol/L (96-108); Creatinine Clr Calc Pharmacy 120.4; Estimated Glomerular Filt Rate > 60; Glucose Random 133 mg/dL (60-115); Potassium 4.5 mmol/L (3.3-5.1); Sodium 137 mmol/L (135-145); Total Protein 7.8 g/dL (6.5-8.0)
[2023-07-10 18:00] VITALS: BP 106/68; PULSE 64; RESP 18; TEMP 36.1
[2023-07-10] MEDS: traZODone HCL 100 MG TABLET PO (20:55)
[2023-07-10] MEDS: chlorproMAZINE HCl 100 MG TABLET PO (22:56)
[2023-07-10] MEDS: Melatonin 3 MG TABLET 6 MG PO (23:05)
[2023-07-11] MEDS: Omeprazole 20 MG CAPSULE.DR PO (06:33)
[2023-07-11 08:43] VITALS: BP 99/62; PULSE 87; RESP 16; TEMP 36.4; O2SAT 97
[2023-07-11] MEDS: Lidocaine 4 % Patch ADH..PATCH 2 PATCH TRANSDERMA (08:44)
[2023-07-11] MEDS: Nicotine 21 MG PATCH.TD24 TRANSDERMA (08:44)
[2023-07-11] MEDS: Divalproex Sodium ER 250 MG TAB.ER.24H PO ×2 (08:45→19:50)
[2023-07-11] MEDS: Cyclobenzaprine HCl 10 MG TABLET PO ×3 (08:45→19:48)
[2023-07-11] MEDS: Multivitamin TABLET 1 TAB PO (08:45)
[2023-07-11] MEDS: LORazepam 0.5 MG TABLET PO ×2 (08:45→19:50)
[2023-07-11] MEDS: Gabapentin 400 MG CAPSULE 800 MG PO ×3 (08:45→19:47)
[2023-07-11] MEDS: Ferrous Sulfate 324 MG TABLET.DR PO (08:45)
[2023-07-11] MEDS: Folic Acid 1 MG TABLET PO (08:45)
[2023-07-11] MEDS: Thiamine HCL 100 MG TABLET PO (08:45)
[2023-07-11] MEDS: Milk of Magnesia 30 ML ORAL.SUSP PO (10:34)
[2023-07-11] MEDS: hydrOXYzine HCL 25 MG TABLET PO ×2 (10:36→19:50)
--- NOTE | 2023-07-11 12:18 | HO.PSYCHPN ---
Subjective Subjective Date of Service: 07/11/23 Reason For Visit: Si, Polysubstance Use Disorder, Major Depression Subjective Notes: Conditional Voluntary Healthcare Proxy: No Guardianship: No Medical Problems Affecting Mental Status: No Interim History: Improving. Father visited who believes she is improving Court 08/17 to discuss custody. The children's paternal grandmother is wanting custody. Pt interested in programs, [employer], going to college ([employer]). Med seeking continues Reports muscle aches, My bones hurt and nausea. Denies SI, HI, No AVH perceptual alterations. Medication Compliance: Yes Side effects from medications: No Attending Groups: Intermittent Review of Systems Acute medical concerns: No Medical Review of Systems: unchanged Mental Status Exam Mental Status Exam Patient Appearance: Fatigued and Disheveled Patient Orientation: Person, Place and Situation Level of Consciousness: Sedated and Restless Patient Behavior: Talkative, Restless, Anxious and Distractible Mood Description: Labile Affect Description: Labile Patient Cognition Impaired: Yes Speech Pattern: Spontaneous Speech and Rambling Memory Description: Remote Impaired Hallucinations: None Perceptual Disturbances: Depersonalization and Derealization Thought Process: Rumination Thought Content: positive for Perseveration and positive for Suicidal Ideation (denies) Depressive Symptoms: Increased Irritability Abnormal Motor Activity Signs and Symptoms: Agitation Judgement: Poor Diagnostics Vital Signs (24Hr): Vital Signs - 24 hr 07/10/23 18:00 07/11/23 08:43 Temperature 97 F 97.6 F Pulse Rate 64 87 Respiratory Rate 18 16 Blood Pressure 106/68 99/62 Pulse Oximetry 97 Oxygen Delivery Method Room Air BMI result Body Mass Index 20.5 Labs 07/10/23 15:29 07/10/23 15:29 Labs: Laboratory Results - last 48 hr 07/10/23 07/10/23 15:29 15:29 WBC 3.7 L RBC 3.11 L Hgb 9.1 L Hct 29.2 L MCV 93.9 MCH 29.3 MCHC 31.2 RDW 17.8 H Plt Count 218 D MPV 9.8 Immature Gran % (Auto) 0.3 Neut % (Auto) 48.7 Lymph % (Auto) 37.8 [place] % (Auto) 10.0 Eos % (Auto) 2.7 Baso % (Auto) 0.5 Lymph # (Auto) 1.4 [place] # (Auto) 0.4 Eos # (Auto) 0.1 Baso # (Auto) 0.0 Abs Immat Gran (auto) 0.01 Absolute Neuts (auto) 1.8 L Absolute Nucleated RBC 0.000 Nucleated RBC % (auto) 0.0 Sodium 137 Potassium 4.5 Chloride 103 Carbon Dioxide 27 Anion Gap 12 BUN 11 Creatinine 0.60 Estim Creat Clear Calc 120.4 Estimated GFR > 60 Random Glucose 133 H Calcium 9.8 D Total Bilirubin 0.1 AST 13 ALT 9 Alkaline Phosphatase 65 Total Protein 7.8 Albumin 3.9 Imaging Radiology Impressions: ITS Impressions Lumbar Spine X-Ray 07/07/23 09:20 IMPRESSION: No fracture. Left upper lobe subsegmental atelectasis. Thoracic Spine X-Ray 07/07/23 09:20 IMPRESSION: No fracture. Left upper lobe subsegmental atelectasis. Medications Medications Current Medications Acetaminophen (Acetaminophen 325 Mg Tablet) 650 mg PO Q6H PRN PRN Reason: Headache/Pain Mild Scale (1-3) Last Admin: 07/10/23 14:07 Dose: 650 mg Al Hydroxide/Mg Hydroxide (Magnesium Hydrox/Alum Hydrox 30 Ml Oral.Susp) 30 ml PO Q6H PRN PRN Reason: Heartburn/Nausea Last Admin: 07/10/23 21:01 Dose: 30 ml Bismuth Subsalicylate (Bismuth Subsalicylate 262 Mg Tablet) 262 mg PO QID PRN PRN Reason: upset stomach Last Admin: 07/10/23 14:55 Dose: 262 mg Chlorpromazine HCl (Chlorpromazine Hcl 100 Mg Tablet) 100 mg PO BEDTIME PRN PRN Reason: agitation, insomnia Last Admin: 07/10/23 22:56 Dose: 100 mg Clonidine HCl (Clonidine Hcl 0.1 Mg Tablet) 0.1 mg PO BID PRN; Protocol PRN Reason: withdrawal Cyclobenzaprine HCl (Cyclobenzaprine Hcl 10 Mg Tablet) 10 mg PO TID [facility] Last Admin: 07/11/23 08:45 Dose: 10 mg Divalproex Sodium (Divalproex Sodium Er 250 Mg Tab.Er.24h) 250 mg PO BID [facility] Last Admin: 07/11/23 08:45 Dose: 250 mg Ferrous Sulfate (Ferrous Sulfate 324 Mg Tablet.Dr) 324 mg PO DAILY [facility] Last Admin: 07/11/23 08:45 Dose: 324 mg Folic Acid (Folic Acid 1 Mg Tablet) 1 mg PO DAILY [facility] Last Admin: 07/11/23 08:45 Dose: 1 mg Gabapentin (Gabapentin 400 Mg Capsule) 800 mg PO TID [facility] Last Admin: 07/11/23 08:45 Dose: 800 mg Hydroxyzine HCl (Hydroxyzine Hcl 25 Mg Tablet) 25 mg PO Q6H PRN PRN Reason: Anxiety Last Admin: 07/11/23 10:36 Dose: 25 mg Lidocaine (Lidocaine 4 % Patch Adh..Patch) 2 patch TRANSDERMA DAILY [facility]; Protocol Last Admin: 07/11/23 08:44 Dose: 2 patch Lorazepam (Lorazepam 0.5 Mg Tablet) 0.5 mg PO BID [facility] Last Admin: 07/11/23 08:45 Dose: 0.5 mg Lorazepam (Lorazepam 1 Mg Tablet) 1 mg PO Q4H PRN PRN Reason: ciwa 8-12 Last Admin: 07/09/23 14:10 Dose: 1 mg Lorazepam (Lorazepam 1 Mg Tablet) 2 mg PO Q4H PRN PRN Reason: ciwa 13-17 Last Admin: 07/08/23 19:31 Dose: 2 mg Magnesium Hydroxide (Milk Of Magnesia 30 Ml Oral.Susp) 30 ml PO DAILY PRN PRN Reason: Constipation Last Admin: 07/11/23 10:34 Dose: 30 ml Melatonin (Melatonin 3 Mg Tablet) 6 mg PO BEDTIME PRN PRN Reason: Sleep Last Admin: 07/10/23 23:05 Dose: 6 mg Multivitamins/Vitamin C (Multivitamin Tablet) 1 tab PO DAILY [facility] Last Admin: 07/11/23 08:45 Dose: 1 tab Nicotine (Nicotine 21 Mg Patch.Td24) 21 mg TRANSDERMA DAILY [facility] Last Admin: 07/11/23 08:44 Dose: 21 mg Nicotine Polacrilex (Nicotine Polacrilex 2 Mg Gum) 4 mg BUCCAL Q2H PRN PRN Reason: Nicotine Cravings Last Admin: 07/10/23 13:27 Dose: 4 mg Olanzapine (Olanzapine 5 Mg Tablet) 5 mg PO Q4H PRN PRN Reason: agitation Last Admin: 07/09/23 14:11 Dose: 5 mg Omeprazole (Omeprazole 20 Mg Capsule.Dr) 20 mg PO DAILY@0630 [facility] Last Admin: 07/11/23 06:33 Dose: 20 mg Pharmacy Consult (Consult Rx Perform Med Rec) 1 each MISCELLANE ONCE PRN PRN Reason: Consult order Thiamine HCl (Thiamine Hcl 100 Mg Tablet) 100 mg PO DAILY [facility] Last Admin: 07/11/23 08:45 Dose: 100 mg Trazodone HCl (Trazodone Hcl 100 Mg Tablet) 100 mg PO BEDTIME PRN PRN Reason: Sleep Last Admin: 07/10/23 20:55 Dose: 100 mg Allergies Allergies Allergy/AdvReac Type Severity Reaction Status Date / Time SEAFOOD Allergy Unknown UNK Uncoded 07/03/23 15:36 Assessment & Plan Assessment & Plan (1) Bipolar disorder: Status: Acute Code(s): F31.9 - Bipolar disorder, unspecified (2) Alcohol use disorder: Status: Acute Code(s): F10.90 - Alcohol use, unspecified, uncomplicated (3) Polysubstance use disorder: Status: Acute Code(s): F19.90 - Other psychoactive substance use, unspecified, uncomplicated Plan 27 yo female, history of bipolar disorder, alcohol use disorder, polysubstance use disorder presents with family for SI, agitation requiring chemical and physical restraint in the ER. Long hx of addiction and mood destabilization. 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 Possibly detoxing from opiates, barbs and alcohol. Pt is a poor historian. Plan: CT Head, Cervial, Thoracic, Lumbar Spine Xrays, Rib xrays Iron profile, ammonia, lipids, A1C, TSH, B12, Folate Re-establish med regime Clonidine prn Olanzapine hs and prn for mood stabilization Depakote ER 250 mg bid Lorazepam 0.5 mg bid and prn Folate, Thiamine, MVI CIWA and COWS ?Need for Section 35 07/07- continue ciwa. started on muscle relaxant- flexeril. 07/08- detox continues, encourage treatment, retracted TDN 07/09- encourage treatment 07/10 Lorazepam 2 mg po x 1 dose. CIWA when we met today 18 Pepto Bismol prn Discontinue scheduled olanzapine Chlorpromazine 100 mg hs prn agitation, insomnia (Pt is clear that she is awake all night) Clonidine 0.1 mg bid prn withdrawal sx Lorazepam taper beginning 07/11. 07/11- Continue current regime. Discussed with pt Lorazepam tapering. Pt asks if we can hold until 07/14 which we will do. Patient educated on: medication risk/benefits, substance abuse, therapeutic strategies and other Informed Consent: further education needed Reason for continued inpatient stay Substantial Risk for: harm to self, inability to function, rapid decompensation and med/psych decompensation Time Spent With Patient Time: Total time managing care of this patient today ____ minutes.
[2023-07-11 13:36] VITALS: BP 116/62
[2023-07-11] MEDS: Magnesium Hydrox/Alum Hydrox 30 ML ORAL.SUSP PO ×2 (13:43→19:53)
[2023-07-11] MEDS: Acetaminophen 325 MG TABLET 650 MG PO ×2 (13:44→19:53)
[2023-07-11] MEDS: OLANZapine 5 MG TABLET PO (14:32)
[2023-07-11] MEDS: cloNIDine HCL 0.1 MG TABLET PO (15:48)
[2023-07-11 18:00] VITALS: BP 116/62; PULSE 122; RESP 18; TEMP 36.6; O2SAT 99
[2023-07-11] MEDS: Melatonin 3 MG TABLET 6 MG PO (19:49)
[2023-07-11] MEDS: traZODone HCL 100 MG TABLET PO (19:50)
[2023-07-11] MEDS: Nicotine Polacrilex 2 MG GUM 4 MG BUCCAL (19:51)
[2023-07-12] MEDS: hydrOXYzine HCL 25 MG TABLET PO (01:48)
[2023-07-12] MEDS: LORazepam 1 MG TABLET PO (01:48)
[2023-07-12] MEDS: Acetaminophen 325 MG TABLET 650 MG PO (06:13)
[2023-07-12] MEDS: Omeprazole 20 MG CAPSULE.DR PO (06:13)
[2023-07-12] MEDS: cloNIDine HCL 0.1 MG TABLET PO ×2 (06:14→14:42)
[2023-07-12] MEDS: Gabapentin 400 MG CAPSULE 800 MG PO ×3 (09:26→20:46)
[2023-07-12] MEDS: Folic Acid 1 MG TABLET PO (09:26)
[2023-07-12] MEDS: Divalproex Sodium ER 250 MG TAB.ER.24H PO ×2 (09:26→20:37)
[2023-07-12] MEDS: Cyclobenzaprine HCl 10 MG TABLET PO ×3 (09:26→20:37)
[2023-07-12] MEDS: LORazepam 0.5 MG TABLET PO ×2 (09:26→20:37)
[2023-07-12] MEDS: Ferrous Sulfate 324 MG TABLET.DR PO (09:26)
[2023-07-12] MEDS: Thiamine HCL 100 MG TABLET PO (09:26)
[2023-07-12] MEDS: Multivitamin TABLET 1 TAB PO (09:26)
[2023-07-12 09:33] VITALS: BP 96/58; PULSE 103; RESP 18; TEMP 36.8; O2SAT 98
[2023-07-12] MEDS: Lidocaine 4 % Patch ADH..PATCH 2 PATCH TRANSDERMA (09:49)
--- NOTE | 2023-07-12 11:21 | HO.PSYCHPN ---
Subjective Subjective Date of Service: 07/12/23 Reason For Visit: Si, Polysubstance Use Disorder, Major Depression Subjective Notes: Conditional Voluntary Interim History: The nursing staff reported the patient took Thorazine in clonidine p.r.n.. She had been scoring on the CIWA only for but she complains of pain. Apparently the main stressor is that her children are going to be adopted by her ex- and the partner the ex- that upsets her very much. She has court next week. The staff has noticed that she is less irritable. On interview the patient complains that she still she, with anxiety and poor sleep she sleeps 3 or 4 hours and she wakes up during the night. She had showed drug-seeking behavior and I explained her that her CIWA does not grand her to give her more Ativan. She agreed to increased Zyprexa at night for mood lability and poor sleep. Mental Status Exam Mental Status Exam Patient Appearance: Appropriate Patient Orientation: Person and Situation Level of Consciousness: Awake and Appropriate Patient Behavior: Guarded and Passive Mood Description: Calm Affect Description: Labile Patient Cognition Impaired: No Ability to Follow Directions: Good Speech Pattern: Clear Hallucinations: None Delusions: Not Present Thought Process: Linear Thought Content: positive for Lena and positive for Perseveration Judgement: Poor Diagnostics Vital Signs (24Hr): Vital Signs - 24 hr 07/11/23 13:36 07/11/23 18:00 07/12/23 09:33 Temperature 97.8 F 98.3 F Pulse Rate 122 H 103 H Respiratory Rate 18 18 Blood Pressure 116/62 116/62 96/58 L Pulse Oximetry 99 98 Oxygen Delivery Method Room Air Room Air BMI result Body Mass Index 20.5 Labs 07/10/23 15:29 07/10/23 15:29 Labs: Laboratory Results - last 48 hr 07/10/23 07/10/23 15:29 15:29 WBC 3.7 L RBC 3.11 L Hgb 9.1 L Hct 29.2 L MCV 93.9 MCH 29.3 MCHC 31.2 RDW 17.8 H Plt Count 218 D MPV 9.8 Immature Gran % (Auto) 0.3 Neut % (Auto) 48.7 Lymph % (Auto) 37.8 [place] % (Auto) 10.0 Eos % (Auto) 2.7 Baso % (Auto) 0.5 Lymph # (Auto) 1.4 [place] # (Auto) 0.4 Eos # (Auto) 0.1 Baso # (Auto) 0.0 Abs Immat Gran (auto) 0.01 Absolute Neuts (auto) 1.8 L Absolute Nucleated RBC 0.000 Nucleated RBC % (auto) 0.0 Sodium 137 Potassium 4.5 Chloride 103 Carbon Dioxide 27 Anion Gap 12 BUN 11 Creatinine 0.60 Estim Creat Clear Calc 120.4 Estimated GFR > 60 Random Glucose 133 H Calcium 9.8 D Total Bilirubin 0.1 AST 13 ALT 9 Alkaline Phosphatase 65 Total Protein 7.8 Albumin 3.9 Imaging Radiology Impressions: ITS Impressions Lumbar Spine X-Ray 07/07/23 09:20 IMPRESSION: No fracture. Left upper lobe subsegmental atelectasis. Thoracic Spine X-Ray 07/07/23 09:20 IMPRESSION: No fracture. Left upper lobe subsegmental atelectasis. Head CT 07/08/23 09:56 IMPRESSION: No acute intracranial pathology. Medications Medications Current Medications Acetaminophen (Acetaminophen 325 Mg Tablet) 650 mg PO Q6H PRN PRN Reason: Headache/Pain Mild Scale (1-3) Last Admin: 07/12/23 06:13 Dose: 650 mg Al Hydroxide/Mg Hydroxide (Magnesium Hydrox/Alum Hydrox 30 Ml Oral.Susp) 30 ml PO Q6H PRN PRN Reason: Heartburn/Nausea Last Admin: 07/11/23 19:53 Dose: 30 ml Bismuth Subsalicylate (Bismuth Subsalicylate 262 Mg Tablet) 262 mg PO QID PRN PRN Reason: upset stomach Last Admin: 07/10/23 14:55 Dose: 262 mg Chlorpromazine HCl (Chlorpromazine Hcl 100 Mg Tablet) 100 mg PO BEDTIME PRN PRN Reason: agitation, insomnia Last Admin: 07/10/23 22:56 Dose: 100 mg Clonidine HCl (Clonidine Hcl 0.1 Mg Tablet) 0.1 mg PO BID PRN; Protocol PRN Reason: withdrawal Last Admin: 07/12/23 06:14 Dose: 0.1 mg Cyclobenzaprine HCl (Cyclobenzaprine Hcl 10 Mg Tablet) 10 mg PO TID [facility] Last Admin: 07/12/23 09:26 Dose: 10 mg Divalproex Sodium (Divalproex Sodium Er 250 Mg Tab.Er.24h) 250 mg PO BID [facility] Last Admin: 07/12/23 09:26 Dose: 250 mg Ferrous Sulfate (Ferrous Sulfate 324 Mg Tablet.Dr) 324 mg PO DAILY [facility] Last Admin: 07/12/23 09:26 Dose: 324 mg Folic Acid (Folic Acid 1 Mg Tablet) 1 mg PO DAILY [facility] Last Admin: 07/12/23 09:26 Dose: 1 mg Gabapentin (Gabapentin 400 Mg Capsule) 800 mg PO TID [facility] Last Admin: 07/12/23 09:26 Dose: 800 mg Hydroxyzine HCl (Hydroxyzine Hcl 25 Mg Tablet) 25 mg PO Q6H PRN PRN Reason: Anxiety Last Admin: 07/12/23 01:48 Dose: 25 mg Lidocaine (Lidocaine 4 % Patch Adh..Patch) 2 patch TRANSDERMA DAILY [facility]; Protocol Last Admin: 07/12/23 09:49 Dose: 2 patch Lorazepam (Lorazepam 0.5 Mg Tablet) 0.5 mg PO BID [facility] Last Admin: 07/12/23 09:26 Dose: 0.5 mg Lorazepam (Lorazepam 1 Mg Tablet) 1 mg PO Q4H PRN PRN Reason: ciwa 8-12 Last Admin: 07/12/23 01:48 Dose: 1 mg Lorazepam (Lorazepam 1 Mg Tablet) 2 mg PO Q4H PRN PRN Reason: ciwa 13-17 Last Admin: 07/08/23 19:31 Dose: 2 mg Magnesium Hydroxide (Milk Of Magnesia 30 Ml Oral.Susp) 30 ml PO DAILY PRN PRN Reason: Constipation Last Admin: 07/11/23 10:34 Dose: 30 ml Melatonin (Melatonin 3 Mg Tablet) 6 mg PO BEDTIME PRN PRN Reason: Sleep Last Admin: 07/11/23 19:49 Dose: 6 mg Multivitamins/Vitamin C (Multivitamin Tablet) 1 tab PO DAILY [facility] Last Admin: 07/12/23 09:26 Dose: 1 tab Nicotine (Nicotine 21 Mg Patch.Td24) 21 mg TRANSDERMA DAILY [facility] Last Admin: 07/12/23 09:31 Dose: Not Given Nicotine Polacrilex (Nicotine Polacrilex 2 Mg Gum) 4 mg BUCCAL Q2H PRN PRN Reason: Nicotine Cravings Last Admin: 07/11/23 19:51 Dose: 4 mg Olanzapine (Olanzapine 5 Mg Tablet) 5 mg PO Q4H PRN PRN Reason: agitation Last Admin: 07/11/23 14:32 Dose: 5 mg Olanzapine (Olanzapine 5 Mg Tablet) 5 mg PO BEDTIME [facility] Omeprazole (Omeprazole 20 Mg Capsule.) 20 mg PO DAILY@0630 [facility] Last Admin: 07/12/23 06:13 Dose: 20 mg Pharmacy Consult (Consult Rx Perform Med Rec) 1 each MISCELLANE ONCE PRN PRN Reason: Consult order Thiamine HCl (Thiamine Hcl 100 Mg Tablet) 100 mg PO DAILY [facility] Last Admin: 07/12/23 09:26 Dose: 100 mg Trazodone HCl (Trazodone Hcl 100 Mg Tablet) 100 mg PO BEDTIME PRN PRN Reason: Sleep Last Admin: 07/11/23 19:50 Dose: 100 mg Allergies Allergies Allergy/AdvReac Type Severity Reaction Status Date / Time SEAFOOD Allergy Unknown UNK Uncoded 07/03/23 15:36 Assessment & Plan Assessment & Plan (1) Bipolar disorder: Status: Acute Code(s): F31.9 - Bipolar disorder, unspecified (2) Alcohol use disorder: Status: Acute Code(s): F10.90 - Alcohol use, unspecified, uncomplicated (3) Polysubstance use disorder: Status: Acute Code(s): F19.90 - Other psychoactive substance use, unspecified, uncomplicated Plan 27 yo female, history of bipolar disorder, alcohol use disorder, polysubstance use disorder presents with family for SI, agitation requiring chemical and physical restraint in the ER. Long hx of addiction and mood destabilization. 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 Possibly detoxing from opiates, barbs and alcohol. Pt is a poor historian. Plan: CT Head, Cervial, Thoracic, Lumbar Spine Xrays, Rib xrays Iron profile, ammonia, lipids, A1C, TSH, B12, Folate Re-establish med regime Clonidine prn Olanzapine hs and prn for mood stabilization Depakote ER 250 mg bid Lorazepam 0.5 mg bid and prn Folate, Thiamine, MVI CIWA and COWS ?Need for Section 35 07/07- continue ciwa. started on muscle relaxant- flexeril. 07/08- detox continues, encourage treatment, retracted TDN 07/09- encourage treatment 07/10 Lorazepam 2 mg po x 1 dose. CIWA when we met today 18 Pepto Bismol prn Discontinue scheduled olanzapine Chlorpromazine 100 mg hs prn agitation, insomnia (Pt is clear that she is awake all night) Clonidine 0.1 mg bid prn withdrawal sx Lorazepam taper beginning 07/11. 07/11- Continue current regime. Discussed with pt Lorazepam tapering. Pt asks if we can hold until 07/14 which we will do. 07/12 continue with same medications At Zyprexa 5 mg p.o. q.h.s. to target mood lability and poor sleep. Reason for continued inpatient stay Substantial Risk for: inability to function, rapid decompensation and med/psych decompensation Time Spent With Patient Time: Total time managing care of this patient today __20__ minutes.
[2023-07-12 14:42] VITALS: BP 102/58
[2023-07-12] MEDS: Magnesium Hydrox/Alum Hydrox 30 ML ORAL.SUSP PO ×2 (14:42→20:46)
[2023-07-12 16:28] VITALS: BP 96/53; PULSE 81; TEMP 36.3; O2SAT 98
[2023-07-12] MEDS: OLANZapine 5 MG TABLET PO (20:37)
[2023-07-12] MEDS: Melatonin 3 MG TABLET 6 MG PO (21:18)
[2023-07-13] MEDS: chlorproMAZINE HCl 100 MG TABLET PO ×2 (01:10→22:25)
[2023-07-13] MEDS: traZODone HCL 100 MG TABLET PO ×2 (01:10→22:32)
[2023-07-13] MEDS: Omeprazole 20 MG CAPSULE.DR PO (06:40)
[2023-07-13] MEDS: Cyclobenzaprine HCl 10 MG TABLET PO ×3 (08:31→22:18)
[2023-07-13] MEDS: Folic Acid 1 MG TABLET PO (08:31)
[2023-07-13] MEDS: Ferrous Sulfate 324 MG TABLET.DR PO (08:31)
[2023-07-13] MEDS: Thiamine HCL 100 MG TABLET PO (08:31)
[2023-07-13] MEDS: Gabapentin 400 MG CAPSULE 800 MG PO ×3 (08:31→22:19)
[2023-07-13] MEDS: LORazepam 0.5 MG TABLET PO ×2 (08:31→22:23)
[2023-07-13] MEDS: Multivitamin TABLET 1 TAB PO (08:31)
[2023-07-13] MEDS: Divalproex Sodium ER 250 MG TAB.ER.24H PO ×2 (08:31→22:19)
[2023-07-13 08:35] VITALS: BP 100/56; PULSE 81; RESP 18; TEMP 36.6; O2SAT 100
[2023-07-13] MEDS: Nicotine 21 MG PATCH.TD24 TRANSDERMA (09:31)
[2023-07-13] MEDS: Lidocaine 4 % Patch ADH..PATCH 2 PATCH TRANSDERMA (10:55)
[2023-07-13] MEDS: Magnesium Hydrox/Alum Hydrox 30 ML ORAL.SUSP PO ×3 (11:10→20:16)
[2023-07-13] MEDS: cloNIDine HCL 0.1 MG TABLET PO (11:11)
[2023-07-13] MEDS: Bismuth Subsalicylate 262 MG TABLET PO ×2 (11:11→15:07)
[2023-07-13] MEDS: Acetaminophen 325 MG TABLET 650 MG PO (11:44)
--- NOTE | 2023-07-13 12:38 | HO.PSYCHPN ---
Subjective Subjective Date of Service: 07/13/23 Reason For Visit: Si, Polysubstance Use Disorder, Major Depression Subjective Notes: Conditional Voluntary Interim History: The nursing staff reported the patient has been requesting medications for night. On interview the patient reports that she slept poorly only 4 hours at night. She has drug-seeking behavior and she wants Ativan or Ambien. On interview she denies new symptoms besides insomnia. Mental Status Exam Mental Status Exam Patient Appearance: Well Grooomed and Appropriate Patient Orientation: Person and Situation Level of Consciousness: Awake and Appropriate Patient Behavior: Guarded and Passive Mood Description: Calm Affect Description: Constricted Patient Cognition Impaired: Yes Ability to Follow Directions: Good Speech Pattern: Clear Hallucinations: None Delusions: Not Present Thought Process: Linear Thought Content: positive for Circumstantial Judgement: Fair Diagnostics Vital Signs (24Hr): Vital Signs - 24 hr 07/12/23 14:42 07/12/23 16:28 07/13/23 08:35 Temperature 97.3 F 97.9 F Pulse Rate 81 81 Respiratory Rate 18 Blood Pressure 102/58 L 96/53 L 100/56 L Pulse Oximetry 98 100 Oxygen Delivery Method Room Air Room Air BMI result Body Mass Index 20.5 Labs 07/10/23 15:29 07/10/23 15:29 Imaging Radiology Impressions: ITS Impressions Lumbar Spine X-Ray 07/07/23 09:20 IMPRESSION: No fracture. Left upper lobe subsegmental atelectasis. Thoracic Spine X-Ray 07/07/23 09:20 IMPRESSION: No fracture. Left upper lobe subsegmental atelectasis. Head CT 07/08/23 09:56 IMPRESSION: No acute intracranial pathology. Medications Medications Current Medications Acetaminophen (Acetaminophen 325 Mg Tablet) 650 mg PO Q6H PRN PRN Reason: Headache/Pain Mild Scale (1-3) Last Admin: 07/13/23 11:44 Dose: 650 mg Al Hydroxide/Mg Hydroxide (Magnesium Hydrox/Alum Hydrox 30 Ml Oral.Susp) 30 ml PO Q6H PRN PRN Reason: Heartburn/Nausea Last Admin: 07/13/23 11:10 Dose: 30 ml Bismuth Subsalicylate (Bismuth Subsalicylate 262 Mg Tablet) 262 mg PO QID PRN PRN Reason: upset stomach Last Admin: 07/13/23 11:11 Dose: 262 mg Chlorpromazine HCl (Chlorpromazine Hcl 100 Mg Tablet) 100 mg PO BEDTIME PRN PRN Reason: agitation, insomnia Last Admin: 07/13/23 01:10 Dose: 100 mg Clonidine HCl (Clonidine Hcl 0.1 Mg Tablet) 0.1 mg PO BID PRN; Protocol PRN Reason: withdrawal Last Admin: 07/13/23 11:11 Dose: 0.1 mg Cyclobenzaprine HCl (Cyclobenzaprine Hcl 10 Mg Tablet) 10 mg PO TID [facility] Last Admin: 07/13/23 08:31 Dose: 10 mg Divalproex Sodium (Divalproex Sodium Er 250 Mg Tab.Er.24h) 250 mg PO BID [facility] Last Admin: 07/13/23 08:31 Dose: 250 mg Ferrous Sulfate (Ferrous Sulfate 324 Mg Tablet.Dr) 324 mg PO DAILY [facility] Last Admin: 07/13/23 08:31 Dose: 324 mg Folic Acid (Folic Acid 1 Mg Tablet) 1 mg PO DAILY [facility] Last Admin: 07/13/23 08:31 Dose: 1 mg Gabapentin (Gabapentin 400 Mg Capsule) 800 mg PO TID [facility] Last Admin: 07/13/23 08:31 Dose: 800 mg Hydroxyzine HCl (Hydroxyzine Hcl 25 Mg Tablet) 25 mg PO Q6H PRN PRN Reason: Anxiety Last Admin: 07/12/23 01:48 Dose: 25 mg Lidocaine (Lidocaine 4 % Patch Adh..Patch) 2 patch TRANSDERMA DAILY [facility]; Protocol Last Admin: 07/13/23 10:55 Dose: 2 patch Lorazepam (Lorazepam 0.5 Mg Tablet) 0.5 mg PO BID [facility] Last Admin: 07/13/23 08:31 Dose: 0.5 mg Lorazepam (Lorazepam 1 Mg Tablet) 1 mg PO Q4H PRN PRN Reason: ciwa 8-12 Last Admin: 07/12/23 01:48 Dose: 1 mg Lorazepam (Lorazepam 1 Mg Tablet) 2 mg PO Q4H PRN PRN Reason: ciwa 13-17 Last Admin: 07/08/23 19:31 Dose: 2 mg Magnesium Hydroxide (Milk Of Magnesia 30 Ml Oral.Susp) 30 ml PO DAILY PRN PRN Reason: Constipation Last Admin: 07/11/23 10:34 Dose: 30 ml Melatonin (Melatonin 3 Mg Tablet) 6 mg PO BEDTIME PRN PRN Reason: Sleep Last Admin: 07/12/23 21:18 Dose: 6 mg Multivitamins/Vitamin C (Multivitamin Tablet) 1 tab PO DAILY [facility] Last Admin: 07/13/23 08:31 Dose: 1 tab Nicotine (Nicotine 21 Mg Patch.Td24) 21 mg TRANSDERMA DAILY [facility] Last Admin: 07/13/23 09:31 Dose: 21 mg Nicotine Polacrilex (Nicotine Polacrilex 2 Mg Gum) 4 mg BUCCAL Q2H PRN PRN Reason: Nicotine Cravings Last Admin: 07/11/23 19:51 Dose: 4 mg Olanzapine (Olanzapine 5 Mg Tablet) 5 mg PO Q4H PRN PRN Reason: agitation Last Admin: 07/11/23 14:32 Dose: 5 mg Olanzapine (Olanzapine 5 Mg Tablet) 5 mg PO BEDTIME [facility] Last Admin: 07/12/23 20:37 Dose: 5 mg Omeprazole (Omeprazole 20 Mg Capsule.Dr) 20 mg PO DAILY@0630 [facility] Last Admin: 07/13/23 06:40 Dose: 20 mg Pharmacy Consult (Consult Rx Perform Med Rec) 1 each MISCELLANE ONCE PRN PRN Reason: Consult order Thiamine HCl (Thiamine Hcl 100 Mg Tablet) 100 mg PO DAILY [facility] Last Admin: 07/13/23 08:31 Dose: 100 mg Trazodone HCl (Trazodone Hcl 100 Mg Tablet) 100 mg PO BEDTIME PRN PRN Reason: Sleep Last Admin: 07/13/23 01:10 Dose: 100 mg Allergies Allergies Allergy/AdvReac Type Severity Reaction Status Date / Time SEAFOOD Allergy Unknown UNK Uncoded 07/03/23 15:36 Assessment & Plan Assessment & Plan (1) Bipolar disorder: Status: Acute Code(s): F31.9 - Bipolar disorder, unspecified (2) Alcohol use disorder: Status: Acute Code(s): F10.90 - Alcohol use, unspecified, uncomplicated (3) Polysubstance use disorder: Status: Acute Code(s): F19.90 - Other psychoactive substance use, unspecified, uncomplicated Plan 27 yo female, history of bipolar disorder, alcohol use disorder, polysubstance use disorder presents with family for SI, agitation requiring chemical and physical restraint in the ER. Long hx of addiction and mood destabilization. 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 Possibly detoxing from opiates, barbs and alcohol. Pt is a poor historian. Plan: CT Head, Cervial, Thoracic, Lumbar Spine Xrays, Rib xrays Iron profile, ammonia, lipids, A1C, TSH, B12, Folate Re-establish med regime Clonidine prn Olanzapine hs and prn for mood stabilization Depakote ER 250 mg bid Lorazepam 0.5 mg bid and prn Folate, Thiamine, MVI CIWA and COWS ?Need for Section 35 07/07- continue ciwa. started on muscle relaxant- flexeril. 07/08- detox continues, encourage treatment, retracted TDN 07/09- encourage treatment 07/10 Lorazepam 2 mg po x 1 dose. CIWA when we met today 18 Pepto Bismol prn Discontinue scheduled olanzapine Chlorpromazine 100 mg hs prn agitation, insomnia (Pt is clear that she is awake all night) Clonidine 0.1 mg bid prn withdrawal sx Lorazepam taper beginning 07/11. 07/11- Continue current regime. Discussed with pt Lorazepam tapering. Pt asks if we can hold until 07/14 which we will do. 07/12 continue with same medications At Zyprexa 5 mg p.o. q.h.s. to target mood lability and poor sleep. 07/13 keep same treatment Reason for continued inpatient stay Substantial Risk for: inability to function, rapid decompensation and med/psych decompensation Time Spent With Patient Time: Total time managing care of this patient today _20___ minutes.
[2023-07-13] MEDS: hydrOXYzine HCL 25 MG TABLET PO ×2 (15:05→22:17)
[2023-07-13 15:22] LABS: Ammonia 41 umol/L (13-55)
[2023-07-13 15:31] LABS: Alanine Aminotransferase 10 U/L (0-31); Albumin Level 3.7 g/dL (3.5-5.0); Alkaline Phosphatase 70 U/L (39-117); Anion Gap 11 (12-20); Aspartate Amino Transferase 18 U/L (5-31); Bilirubin Total 0.1 mg/dL (0.0-1.0); Blood Urea Nitrogen 10 mg/dL (9-16); Calcium 9.2 mg/dL (8.4-10.2); Carbon Dioxide 28 mmol/L (22-29); Chloride 103 mmol/L (96-108); Creatinine Clr Calc Pharmacy 120.4; Estimated Glomerular Filt Rate > 60; Glucose Random 158 mg/dL (60-115); Lipase 28 U/L (8-78); Potassium 4.2 mmol/L (3.3-5.1); Sodium 138 mmol/L (135-145); Total Protein 7.1 g/dL (6.5-8.0)
[2023-07-13 16:09] LABS: Valproate 36.5 mcg/mL (50.0-100.0)
[2023-07-13] MEDS: LORazepam 1 MG TABLET PO (16:39)
[2023-07-13 16:46] VITALS: BP 111/60; PULSE 85; TEMP 35.8; O2SAT 100
--- NOTE | 2023-07-13 20:17 | PC.NURSE ---
Patient c/o chronic stomach ache and said I have had this problem since I was a baby .. She requested another dose of Maalox, [address] Olmos was notified and okayed.
[2023-07-13] MEDS: OLANZapine 5 MG TABLET PO (22:17)
[2023-07-13] MEDS: Melatonin 3 MG TABLET 6 MG PO (22:28)
[2023-07-14 06:00] VITALS: BP 108/67; PULSE 95; RESP 16
[2023-07-14] MEDS: Omeprazole 20 MG CAPSULE.DR PO (06:33)
[2023-07-14] MEDS: Nicotine 21 MG PATCH.TD24 TRANSDERMA (08:19)
[2023-07-14] MEDS: Lidocaine 4 % Patch ADH..PATCH 2 PATCH TRANSDERMA (08:19)
[2023-07-14] MEDS: Thiamine HCL 100 MG TABLET PO (08:20)
[2023-07-14] MEDS: Cyclobenzaprine HCl 10 MG TABLET PO ×3 (08:20→21:03)
[2023-07-14] MEDS: Divalproex Sodium ER 250 MG TAB.ER.24H PO ×2 (08:20→21:03)
[2023-07-14] MEDS: Gabapentin 400 MG CAPSULE 800 MG PO ×3 (08:20→21:02)
[2023-07-14] MEDS: Folic Acid 1 MG TABLET PO (08:20)
[2023-07-14] MEDS: Ferrous Sulfate 324 MG TABLET.DR PO (08:20)
[2023-07-14] MEDS: Multivitamin TABLET 1 TAB PO (08:20)
[2023-07-14] MEDS: LORazepam 0.5 MG TABLET PO ×2 (08:20→21:03)
[2023-07-14] MEDS: Magnesium Hydrox/Alum Hydrox 30 ML ORAL.SUSP PO (09:52)
[2023-07-14] MEDS: Bismuth Subsalicylate Liquid 524 MG/30 ML ORAL.SUSP PO ×2 (14:06→21:17)
[2023-07-14] MEDS: cloNIDine HCL 0.1 MG TABLET PO ×2 (14:09→21:09)
[2023-07-14 14:10] VITALS: BP 113/66; PULSE 105
--- NOTE | 2023-07-14 15:21 | P.PNPSI_ITS ---
Subjective Subjective Date of Service: 07/14/23 Reason For Visit: Si, Polysubstance Use Disorder, Major Depression Subjective Notes: Conditional Voluntary Healthcare Proxy: No Guardianship: No Medical Problems Affecting Mental Status: No Interim History: Ibeth reports pain, bones aching, need for more Ativan, insomnia. Discussed why we are beginning to limit Ativan. She verbalized understanding. Continues to ask for IOP vs residential. Discharge planning for this week. Medication Compliance: Yes Side effects from medications: No Attending Groups: Intermittent Review of Systems Acute medical concerns: No Medical Review of Systems: unchanged Mental Status Exam Mental Status Exam Patient Appearance: Fatigued Patient Orientation: Person, Place, Time and Situation Level of Consciousness: Alert Patient Behavior: Talkative, Resistive to Care, Fatigued, Distractible, Confused and Good Eye Contact Mood Description: Depressed Affect Description: Flat Patient Cognition Impaired: No Ability to Follow Directions: Fair Speech Pattern: Spontaneous Speech Memory Description: Remote Impaired and Episodic Impaired Hallucinations: None Delusions: Not Present Perceptual Disturbances: Depersonalization and Derealization Thought Process: Rumination Thought Content: positive for [place] and positive for Circumstantial Depressive Symptoms: Low Self Esteem Judgement: Fair Diagnostics Vital Signs (24Hr): Vital Signs - 24 hr 07/13/23 16:46 07/14/23 06:00 07/14/23 14:10 Temperature 96.5 F L Pulse Rate 85 95 105 H Respiratory Rate 16 Blood Pressure 111/60 108/67 113/66 Pulse Oximetry 100 Oxygen Delivery Method Room Air BMI result Body Mass Index 20.5 Labs 07/10/23 15:29 07/13/23 14:44 Labs: Laboratory Results - last 48 hr 07/13/23 07/13/23 07/13/23 14:44 14:44 14:44 Sodium 138 Potassium 4.2 Chloride 103 Carbon Dioxide 28 Anion Gap 11 L BUN 10 Creatinine 0.60 Estim Creat Clear Calc 120.4 Estimated GFR > 60 Random Glucose 158 H Calcium 9.2 D Total Bilirubin 0.1 AST 18 ALT 10 Alkaline Phosphatase 70 Ammonia 41 Total Protein 7.1 Albumin 3.7 Lipase 28 Valproic Acid 36.5 L Imaging Radiology Impressions: ITS Impressions Lumbar Spine X-Ray 07/07/23 09:20 IMPRESSION: No fracture. Left upper lobe subsegmental atelectasis. Thoracic Spine X-Ray 07/07/23 09:20 IMPRESSION: No fracture. Left upper lobe subsegmental atelectasis. Head CT 07/08/23 09:56 IMPRESSION: No acute intracranial pathology. Medications Medications Current Medications Acetaminophen (Acetaminophen 325 Mg Tablet) 650 mg PO Q6H PRN PRN Reason: Headache/Pain Mild Scale (1-3) Last Admin: 07/13/23 11:44 Dose: 650 mg Al Hydroxide/Mg Hydroxide (Magnesium Hydrox/Alum Hydrox 30 Ml Oral.Susp) 30 ml PO Q6H PRN PRN Reason: Heartburn/Nausea Last Admin: 07/14/23 09:52 Dose: 30 ml Bismuth Subsalicylate (Bismuth Subsalicylate Liquid 524 Mg/30 Ml Oral.Susp) 524 mg PO QID PRN PRN Reason: stomach upset Last Admin: 07/14/23 14:06 Dose: 524 mg Chlorpromazine HCl (Chlorpromazine Hcl 25 Mg Tablet) 150 mg PO BEDTIME PRN PRN Reason: agitation, insomnia Clonidine HCl (Clonidine Hcl 0.1 Mg Tablet) 0.1 mg PO BID PRN; Protocol PRN Reason: withdrawal Last Admin: 07/14/23 14:09 Dose: 0.1 mg Cyclobenzaprine HCl (Cyclobenzaprine Hcl 10 Mg Tablet) 10 mg PO TID [facility] Last Admin: 07/14/23 14:06 Dose: 10 mg Divalproex Sodium (Divalproex Sodium Er 250 Mg Tab.Er.24h) 250 mg PO BID [facility] Last Admin: 07/14/23 08:20 Dose: 250 mg Ferrous Sulfate (Ferrous Sulfate 324 Mg Tablet.Dr) 324 mg PO DAILY [facility] Last Admin: 07/14/23 08:20 Dose: 324 mg Folic Acid (Folic Acid 1 Mg Tablet) 1 mg PO DAILY [facility] Last Admin: 07/14/23 08:20 Dose: 1 mg Gabapentin (Gabapentin 400 Mg Capsule) 800 mg PO TID [facility] Last Admin: 07/14/23 14:06 Dose: 800 mg Hydroxyzine HCl (Hydroxyzine Hcl 25 Mg Tablet) 25 mg PO Q6H PRN PRN Reason: Anxiety Last Admin: 07/13/23 22:17 Dose: 25 mg Lidocaine (Lidocaine 4 % Patch Adh..Patch) 2 patch TRANSDERMA DAILY [facility]; Protocol Last Admin: 07/14/23 08:19 Dose: 2 patch Lorazepam (Lorazepam 0.5 Mg Tablet) 0.5 mg PO BID [facility] Last Admin: 07/14/23 08:20 Dose: 0.5 mg Lorazepam (Lorazepam 1 Mg Tablet) 1 mg PO Q4H PRN PRN Reason: ciwa 8-12 Last Admin: 07/13/23 16:39 Dose: 1 mg Lorazepam (Lorazepam 1 Mg Tablet) 2 mg PO Q4H PRN PRN Reason: ciwa 13- Last Admin: 07/08/23 19:31 Dose: 2 mg Magnesium Hydroxide (Milk Of Magnesia 30 Ml Oral.Susp) 30 ml PO DAILY PRN PRN Reason: Constipation Last Admin: 07/11/23 10:34 Dose: 30 ml Melatonin (Melatonin 3 Mg Tablet) 9 mg PO BEDTIME PRN PRN Reason: Sleep Multivitamins/Vitamin C (Multivitamin Tablet) 1 tab PO DAILY [facility] Last Admin: 07/14/23 08:20 Dose: 1 tab Nicotine (Nicotine 21 Mg Patch.Td24) 21 mg TRANSDERMA DAILY [facility] Last Admin: 07/14/23 08:19 Dose: 21 mg Nicotine Polacrilex (Nicotine Polacrilex 2 Mg Gum) 4 mg BUCCAL Q2H PRN PRN Reason: Nicotine Cravings Last Admin: 07/11/23 19:51 Dose: 4 mg Olanzapine (Olanzapine 5 Mg Tablet) 5 mg PO Q4H PRN PRN Reason: agitation Last Admin: 07/11/23 14:32 Dose: 5 mg Olanzapine (Olanzapine 5 Mg Tablet) 5 mg PO BEDTIME [facility] Last Admin: 07/13/23 22:17 Dose: 5 mg Omeprazole (Omeprazole 20 Mg Capsule.Dr) 20 mg PO DAILY@0630 [facility] Last Admin: 07/14/23 06:33 Dose: 20 mg Pharmacy Consult (Consult Rx Perform Med Rec) 1 each MISCELLANE ONCE PRN PRN Reason: Consult order Thiamine HCl (Thiamine Hcl 100 Mg Tablet) 100 mg PO DAILY [facility] Last Admin: 07/14/23 08:20 Dose: 100 mg Trazodone HCl (Trazodone Hcl 100 Mg Tablet) 100 mg PO BEDTIME PRN PRN Reason: Sleep Last Admin: 07/13/23 22:32 Dose: 100 mg Allergies Allergies Allergy/AdvReac Type Severity Reaction Status Date / Time SEAFOOD Allergy Unknown UNK Uncoded 07/03/23 15:36 Assessment & Plan Assessment & Plan (1) Bipolar disorder: Status: Acute Code(s): F31.9 - Bipolar disorder, unspecified (2) Alcohol use disorder: Status: Acute Code(s): F10.90 - Alcohol use, unspecified, uncomplicated (3) Polysubstance use disorder: Status: Acute Code(s): F19.90 - Other psychoactive substance use, unspecified, uncomplicated Plan 27 yo female, history of bipolar disorder, alcohol use disorder, polysubstance use disorder presents with family for SI, agitation requiring chemical and physical restraint in the ER. Long hx of addiction and mood destabilization. 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 Possibly detoxing from opiates, barbs and alcohol. Pt is a poor historian. Plan: CT Head, Cervial, Thoracic, Lumbar Spine Xrays, Rib xrays Iron profile, ammonia, lipids, A1C, TSH, B12, Folate Re-establish med regime Clonidine prn Olanzapine hs and prn for mood stabilization Depakote ER 250 mg bid Lorazepam 0.5 mg bid and prn Folate, Thiamine, MVI CIWA and COWS ?Need for Section 35 07/07- continue ciwa. started on muscle relaxant- flexeril. 07/08- detox continues, encourage treatment, retracted TDN 07/09- encourage treatment 07/10 Lorazepam 2 mg po x 1 dose. CIWA when we met today 18 Pepto Bismol prn Discontinue scheduled olanzapine Chlorpromazine 100 mg hs prn agitation, insomnia (Pt is clear that she is awake all night) Clonidine 0.1 mg bid prn withdrawal sx Lorazepam taper beginning 07/11. 07/11- Continue current regime. Discussed with pt Lorazepam tapering. Pt asks if we can hold until 07/14 which we will do. 07/12 continue with same medications At Zyprexa 5 mg p.o. q.h.s. to target mood lability and poor sleep. 07/13 keep same treatment 07/14 Increase Chlorpromazine to 150 mg hs prn Change Pepto Bismal to oral suspension Ativan tapering via CIWA Patient educated on: medication risk/benefits and therapeutic strategies Informed Consent: understands Reason for continued inpatient stay Substantial Risk for: rapid decompensation Time Spent With Patient Time: Total time managing care of this patient today ____ minutes.
[2023-07-14] MEDS: LORazepam 1 MG TABLET PO (15:56)
[2023-07-14 18:00] VITALS: BP 103/55; PULSE 83; TEMP 35.8; O2SAT 100
[2023-07-14] MEDS: OLANZapine 5 MG TABLET PO (21:03)
[2023-07-14] MEDS: chlorproMAZINE HCl 25 MG TABLET 150 MG PO (21:09)
[2023-07-15] MEDS: Omeprazole 20 MG CAPSULE.DR PO (06:37)
[2023-07-15 08:36] VITALS: BP 100/63; PULSE 88; RESP 16; TEMP 36.6; O2SAT 100
[2023-07-15] MEDS: Lidocaine 4 % Patch ADH..PATCH 2 PATCH TRANSDERMA (08:41)
[2023-07-15] MEDS: Gabapentin 400 MG CAPSULE 800 MG PO ×3 (08:41→20:27)
[2023-07-15] MEDS: Nicotine 21 MG PATCH.TD24 TRANSDERMA (08:41)
[2023-07-15] MEDS: Ferrous Sulfate 324 MG TABLET.DR PO (08:42)
[2023-07-15] MEDS: Cyclobenzaprine HCl 10 MG TABLET PO ×3 (08:42→20:27)
[2023-07-15] MEDS: LORazepam 0.5 MG TABLET PO ×2 (08:42→20:43)
[2023-07-15] MEDS: Multivitamin TABLET 1 TAB PO (08:42)
[2023-07-15] MEDS: Thiamine HCL 100 MG TABLET PO (08:42)
[2023-07-15] MEDS: Divalproex Sodium ER 250 MG TAB.ER.24H PO (08:42)
[2023-07-15] MEDS: Folic Acid 1 MG TABLET PO (08:43)
--- NOTE | 2023-07-15 10:05 | P.PNPSI_ITS ---
Subjective Subjective Date of Service: 07/15/23 Reason For Visit: Si, Polysubstance Use Disorder, Major Depression Subjective Notes: Conditional Voluntary Healthcare Proxy: No Guardianship: No Medical Problems Affecting Mental Status: No Interim History: Med seeking. Ativan tapering to begin 07/16-1.5 mg; 07/17-1mg; 07/18 0.5 mg Refused recovery coaching from addictions Discussed anxiety about court date 08/17 for custody of her children. Reports she slept last night Medication Compliance: Yes Side effects from medications: No Attending Groups: Intermittent Review of Systems Acute medical concerns: No Medical Review of Systems: unchanged Mental Status Exam Mental Status Exam Patient Appearance: Fatigued Patient Orientation: Person, Place, Time and Situation Level of Consciousness: Alert Patient Behavior: Talkative, Resistive to Care, Fatigued, Distractible, Confused and Good Eye Contact Mood Description: Depressed Affect Description: Flat Patient Cognition Impaired: No Ability to Follow Directions: Fair Speech Pattern: Spontaneous Speech Memory Description: Remote Impaired and Episodic Impaired Hallucinations: None Delusions: Not Present Perceptual Disturbances: Depersonalization and Derealization Thought Process: Rumination Thought Content: positive for [place] and positive for Circumstantial Depressive Symptoms: Low Self Esteem Judgement: Fair Diagnostics Vital Signs (24Hr): Vital Signs - 24 hr 07/14/23 14:10 07/14/23 18:00 07/15/23 08:36 Temperature 96.4 F L 97.8 F Pulse Rate 105 H 83 88 Respiratory Rate 16 Blood Pressure 113/66 103/55 L 100/63 Pulse Oximetry 100 100 Oxygen Delivery Method Room Air Room Air BMI result Body Mass Index 20.5 Labs 07/10/23 15:29 07/13/23 14:44 Labs: Laboratory Results - last 48 hr 07/13/23 07/13/23 07/13/23 14:44 14:44 14:44 Sodium 138 Potassium 4.2 Chloride 103 Carbon Dioxide 28 Anion Gap 11 L BUN 10 Creatinine 0.60 Estim Creat Clear Calc 120.4 Estimated GFR > 60 Random Glucose 158 H Calcium 9.2 D Total Bilirubin 0.1 AST 18 ALT 10 Alkaline Phosphatase 70 Ammonia 41 Total Protein 7.1 Albumin 3.7 Lipase 28 Valproic Acid 36.5 L Imaging Radiology Impressions: ITS Impressions Lumbar Spine X-Ray 07/07/23 09:20 IMPRESSION: No fracture. Left upper lobe subsegmental atelectasis. Thoracic Spine X-Ray 07/07/23 09:20 IMPRESSION: No fracture. Left upper lobe subsegmental atelectasis. Head CT 07/08/23 09:56 IMPRESSION: No acute intracranial pathology. Medications Medications Current Medications Acetaminophen (Acetaminophen 325 Mg Tablet) 650 mg PO Q6H PRN PRN Reason: Headache/Pain Mild Scale (1-3) Last Admin: 07/13/23 11:44 Dose: 650 mg Al Hydroxide/Mg Hydroxide (Magnesium Hydrox/Alum Hydrox 30 Ml Oral.Susp) 30 ml PO Q6H PRN PRN Reason: Heartburn/Nausea Last Admin: 07/14/23 09:52 Dose: 30 ml Bismuth Subsalicylate (Bismuth Subsalicylate Liquid 524 Mg/30 Ml Oral.Susp) 524 mg PO QID PRN PRN Reason: stomach upset Last Admin: 07/14/23 21:17 Dose: 524 mg Chlorpromazine HCl (Chlorpromazine Hcl 25 Mg Tablet) 150 mg PO BEDTIME PRN PRN Reason: agitation, insomnia Last Admin: 07/14/23 21:09 Dose: 150 mg Clonidine HCl (Clonidine Hcl 0.1 Mg Tablet) 0.1 mg PO BID PRN; Protocol PRN Reason: withdrawal Last Admin: 07/14/23 21:09 Dose: 0.1 mg Cyclobenzaprine HCl (Cyclobenzaprine Hcl 10 Mg Tablet) 10 mg PO TID [facility] Last Admin: 07/15/23 08:42 Dose: 10 mg Divalproex Sodium (Divalproex Sodium Er 250 Mg Tab.Er.24h) 250 mg PO BID [facility] Last Admin: 07/15/23 08:42 Dose: 250 mg Ferrous Sulfate (Ferrous Sulfate 324 Mg Tablet.Dr) 324 mg PO DAILY [facility] Last Admin: 07/15/23 08:42 Dose: 324 mg Folic Acid (Folic Acid 1 Mg Tablet) 1 mg PO DAILY [facility] Last Admin: 07/15/23 08:43 Dose: 1 mg Gabapentin (Gabapentin 400 Mg Capsule) 800 mg PO TID [facility] Last Admin: 07/15/23 08:41 Dose: 800 mg Hydroxyzine HCl (Hydroxyzine Hcl 25 Mg Tablet) 25 mg PO Q6H PRN PRN Reason: Anxiety Last Admin: 07/13/23 22:17 Dose: 25 mg Lidocaine (Lidocaine 4 % Patch Adh..Patch) 2 patch TRANSDERMA DAILY [facility]; Protocol Last Admin: 07/15/23 08:41 Dose: 2 patch Lorazepam (Lorazepam 0.5 Mg Tablet) 0.5 mg PO BID [facility] Last Admin: 07/15/23 08:42 Dose: 0.5 mg Lorazepam (Lorazepam 1 Mg Tablet) 1 mg PO Q4H PRN PRN Reason: ciwa 8-12 Last Admin: 07/14/23 15:56 Dose: 1 mg Lorazepam (Lorazepam 1 Mg Tablet) 2 mg PO Q4H PRN PRN Reason: ciwa 13-17 Last Admin: 07/08/23 19:31 Dose: 2 mg Magnesium Hydroxide (Milk Of Magnesia 30 Ml Oral.Susp) 30 ml PO DAILY PRN PRN Reason: Constipation Last Admin: 07/11/23 10:34 Dose: 30 ml Melatonin (Melatonin 3 Mg Tablet) 9 mg PO BEDTIME PRN PRN Reason: Sleep Multivitamins/Vitamin C (Multivitamin Tablet) 1 tab PO DAILY [facility] Last Admin: 07/15/23 08:42 Dose: 1 tab Nicotine (Nicotine 21 Mg Patch.Td24) 21 mg TRANSDERMA DAILY [facility] Last Admin: 07/15/23 08:41 Dose: 21 mg Nicotine Polacrilex (Nicotine Polacrilex 2 Mg Gum) 4 mg BUCCAL Q2H PRN PRN Reason: Nicotine Cravings Last Admin: 07/11/23 19:51 Dose: 4 mg Olanzapine (Olanzapine 5 Mg Tablet) 5 mg PO Q4H PRN PRN Reason: agitation Last Admin: 07/11/23 14:32 Dose: 5 mg Olanzapine (Olanzapine 5 Mg Tablet) 5 mg PO BEDTIME [facility] Last Admin: 07/14/23 21:03 Dose: 5 mg Omeprazole (Omeprazole 20 Mg Capsule.Dr) 20 mg PO DAILY@0630 [facility] Last Admin: 07/15/23 06:37 Dose: 20 mg Pharmacy Consult (Consult Rx Perform Med Rec) 1 each MISCELLANE ONCE PRN PRN Reason: Consult order Thiamine HCl (Thiamine Hcl 100 Mg Tablet) 100 mg PO DAILY [facility] Last Admin: 07/15/23 08:42 Dose: 100 mg Trazodone HCl (Trazodone Hcl 100 Mg Tablet) 100 mg PO BEDTIME PRN PRN Reason: Sleep Last Admin: 07/13/23 22:32 Dose: 100 mg Allergies Allergies Allergy/AdvReac Type Severity Reaction Status Date / Time SEAFOOD Allergy Unknown UNK Uncoded 07/03/23 15:36 Assessment & Plan Assessment & Plan (1) Bipolar disorder: Status: Acute Code(s): F31.9 - Bipolar disorder, unspecified (2) Alcohol use disorder: Status: Acute Code(s): F10.90 - Alcohol use, unspecified, uncomplicated (3) Polysubstance use disorder: Status: Acute Code(s): F19.90 - Other psychoactive substance use, unspecified, uncomplicated Plan 27 yo female, history of bipolar disorder, alcohol use disorder, polysubstance use disorder presents with family for SI, agitation requiring chemical and physical restraint in the ER. Long hx of addiction and mood destabilization. 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 Possibly detoxing from opiates, barbs and alcohol. Pt is a poor historian. Plan: CT Head, Cervial, Thoracic, Lumbar Spine Xrays, Rib xrays Iron profile, ammonia, lipids, A1C, TSH, B12, Folate Re-establish med regime Clonidine prn Olanzapine hs and prn for mood stabilization Depakote ER 250 mg bid Lorazepam 0.5 mg bid and prn Folate, Thiamine, MVI CIWA and COWS ?Need for Section 35 07/07- continue ciwa. started on muscle relaxant- flexeril. 07/08- detox continues, encourage treatment, retracted TDN 07/09- encourage treatment 07/10 Lorazepam 2 mg po x 1 dose. CIWA when we met today 18 Pepto Bismol prn Discontinue scheduled olanzapine Chlorpromazine 100 mg hs prn agitation, insomnia (Pt is clear that she is awake all night) Clonidine 0.1 mg bid prn withdrawal sx Lorazepam taper beginning 07/11. 07/11- Continue current regime. Discussed with pt Lorazepam tapering. Pt asks if we can hold until 07/14 which we will do. 07/12 continue with same medications At Zyprexa 5 mg p.o. q.h.s. to target mood lability and poor sleep. 07/13 keep same treatment 07/14 Increase Chlorpromazine to 150 mg hs prn Change Pepto Bismal to oral suspension Ativan tapering via CIWA 07/15/23 Lorazepam taper to begin 07/16. Patient educated on: medication risk/benefits, substance abuse and therapeutic strategies Informed Consent: further education needed Reason for continued inpatient stay Substantial Risk for: rapid decompensation Time Spent With Patient Time: Total time managing care of this patient today ____ minutes.
[2023-07-15] MEDS: cloNIDine HCL 0.1 MG TABLET PO ×2 (10:10→20:44)
[2023-07-15 10:11] VITALS: BP 97/58
[2023-07-15] MEDS: hydrOXYzine HCL 25 MG TABLET PO (11:12)
[2023-07-15] MEDS: Bismuth Subsalicylate Liquid 524 MG/30 ML ORAL.SUSP PO ×2 (11:16→20:47)
[2023-07-15] MEDS: OLANZapine 5 MG TABLET PO ×2 (13:31→20:43)
--- NOTE | 2023-07-15 13:43 | MHC.RECOVRN ---
Em tin recovery worker, and t/w in to see patient to assess ETOH hx, use, and goals for treatment. Pt reports she was drinking 20 nips daily for the past few months. Pt reports she has previously tried naltrexone and vivitrol and that both were ineffective at controlling her cravings. Pt reports she currently feels a little better but had been previously experiencing sweaty hands, anxiety, and some light sensitivity earlier today. No diaphoresis, or tremor noted. Pt flat, and guarded. Pt endorsing interest in antabuse, and having a recovery collector come to the unit to meet with her.
[2023-07-15] MEDS: LORazepam 1 MG TABLET PO (14:09)
[2023-07-15] MEDS: Magnesium Hydrox/Alum Hydrox 30 ML ORAL.SUSP PO ×2 (15:04→22:12)
[2023-07-15] MEDS: Acetaminophen 325 MG TABLET 650 MG PO (15:04)
--- NOTE | 2023-07-15 19:17 | MHC.RECOVSUP ---
? Reason for consult:ETOH o? Current location:M[facility]? o? Identified substance use concern:? -? Support ? Intervention: o? Community resources provided o? Harm reduction discussion ? Plan:Outpatient services ? Additional information:RC met with this pt and discussed treatment options, pt informed me that she's interested in working with a woman head strength and conditioning coach and obtaining a therapist. Pt also stated that she's ready to go home, I directed her to speak with her counselor/endodontic assistant. This pt is going to call me upon discharge to complete the referral form for a assistant basketball coach.
[2023-07-15 20:20] VITALS: BP 101/58; PULSE 110; TEMP 36.4
[2023-07-15] MEDS: Divalproex Sodium ER 500 MG TAB.ER.24H PO (20:28)
[2023-07-15] MEDS: chlorproMAZINE HCl 25 MG TABLET 150 MG PO (22:12)
--- NOTE | 2023-07-16 | ECG_ITS ---
Test Reason : PALPITATIONS Blood Pressure : / mmHG Vent. Rate : 093 BPM Atrial Rate : 093 BPM P-R Int : 122 ms QRS Dur : 082 ms QT Int : 368 ms P-R-T Axes : 033 050 025 degrees QTc Int : 457 ms Normal sinus rhythm Normal ECG When compared with ECG of 05-JUL-2023 17:50, No significant change was found Referred By: Muriel Alanis Electronically Signed By:EBER VAUGHAN
[2023-07-16] MEDS: traZODone HCL 100 MG TABLET PO (00:41)
[2023-07-16] MEDS: Melatonin 3 MG TABLET 9 MG PO (00:42)
[2023-07-16 06:00] VITALS: BP 111/60; PULSE 105; RESP 16; TEMP 36.8; O2SAT 99
[2023-07-16] MEDS: Omeprazole 20 MG CAPSULE.DR PO (06:30)
[2023-07-16] MEDS: Cyclobenzaprine HCl 10 MG TABLET PO ×3 (09:10→20:27)
[2023-07-16] MEDS: Multivitamin TABLET 1 TAB PO (09:10)
[2023-07-16] MEDS: Nicotine 21 MG PATCH.TD24 TRANSDERMA (09:10)
[2023-07-16] MEDS: Thiamine HCL 100 MG TABLET PO (09:10)
[2023-07-16] MEDS: Ferrous Sulfate 324 MG TABLET.DR PO (09:11)
[2023-07-16] MEDS: Lidocaine 4 % Patch ADH..PATCH 2 PATCH TRANSDERMA (09:11)
[2023-07-16] MEDS: LORazepam 0.5 MG TABLET PO ×3 (09:11→20:31)
[2023-07-16] MEDS: Gabapentin 400 MG CAPSULE 800 MG PO ×3 (09:11→20:24)
[2023-07-16] MEDS: Divalproex Sodium ER 500 MG TAB.ER.24H PO ×2 (09:11→20:24)
[2023-07-16] MEDS: Folic Acid 1 MG TABLET PO (09:11)
--- NOTE | 2023-07-16 10:15 | HO.PSYCHPN ---
Subjective Subjective Date of Service: 07/16/23 Reason For Visit: Si, Polysubstance Use Disorder, Major Depression Subjective Notes: Conditional Voluntary Healthcare Proxy: No Guardianship: No Medical Problems Affecting Mental Status: No Interim History: Lorazepam taper beginning today. 1.5 mg today, 1 mg 07/17, 0.5 mg 07/18. Discharge planned for 07/18. Pt plans to go to [facility] programming, declines residential. Continues to report withdrawal discomfort- EKG WNL today Reports she is sleeping and feeling somewhat improved overall. Visable in milieu, interactive with peers and team and attending some groups. Brief meeting with pt and father to discuss discharge. Medication Compliance: Yes Side effects from medications: No Attending Groups: Intermittent Review of Systems Acute medical concerns: No Medical Review of Systems: unchanged Mental Status Exam Mental Status Exam Patient Appearance: Appropriate Patient Orientation: Person, Place, Time and Situation Level of Consciousness: Alert Patient Behavior: Talkative, Distractible and Good Eye Contact Mood Description: Appropriate and Apprehensive Affect Description: Constricted Patient Cognition Impaired: No Ability to Follow Directions: Fair Speech Pattern: Spontaneous Speech Memory Description: Remote Impaired and Episodic Impaired Hallucinations: None Delusions: Not Present Perceptual Disturbances: Depersonalization and Derealization Thought Process: Intact Thought Content: positive for [place] and positive for Circumstantial Depressive Symptoms: Increased Anxiety and Low Self Esteem Judgement: Good Diagnostics Vital Signs (24Hr): Vital Signs - 24 hr 07/15/23 20:20 07/16/23 06:00 Temperature 97.6 F 98.3 F Pulse Rate 110 H 105 H Respiratory Rate 16 Blood Pressure 101/58 L 111/60 Pulse Oximetry 99 Oxygen Delivery Method Room Air BMI result Body Mass Index 20.5 Labs 07/10/23 15:29 07/13/23 14:44 Imaging Radiology Impressions: ITS Impressions Lumbar Spine X-Ray 07/07/23 09:20 IMPRESSION: No fracture. Left upper lobe subsegmental atelectasis. Thoracic Spine X-Ray 07/07/23 09:20 IMPRESSION: No fracture. Left upper lobe subsegmental atelectasis. Head CT 07/08/23 09:56 IMPRESSION: No acute intracranial pathology. Medications Medications Current Medications Acetaminophen (Acetaminophen 325 Mg Tablet) 650 mg PO Q6H PRN PRN Reason: Headache/Pain Mild Scale (1-3) Last Admin: 07/15/23 15:04 Dose: 650 mg Al Hydroxide/Mg Hydroxide (Magnesium Hydrox/Alum Hydrox 30 Ml Oral.Susp) 30 ml PO Q6H PRN PRN Reason: Heartburn/Nausea Last Admin: 07/15/23 22:12 Dose: 30 ml Benzocaine (Benzocaine 20 % Oral Gel 9 Gm Tube) 1 appl MUCOUS MEM QID PRN; Protocol PRN Reason: dental pain Bismuth Subsalicylate (Bismuth Subsalicylate Liquid 524 Mg/30 Ml Oral.Susp) 524 mg PO QID PRN PRN Reason: stomach upset Last Admin: 07/15/23 20:47 Dose: 524 mg Chlorpromazine HCl (Chlorpromazine Hcl 25 Mg Tablet) 150 mg PO BEDTIME PRN PRN Reason: agitation, insomnia Last Admin: 07/15/23 22:12 Dose: 150 mg Clonidine HCl (Clonidine Hcl 0.1 Mg Tablet) 0.1 mg PO BID PRN; Protocol PRN Reason: withdrawal Last Admin: 07/15/23 20:44 Dose: 0.1 mg Cyclobenzaprine HCl (Cyclobenzaprine Hcl 10 Mg Tablet) 10 mg PO TID [facility] Last Admin: 07/16/23 09:10 Dose: 10 mg Divalproex Sodium (Divalproex Sodium Er 500 Mg Tab.Er.24h) 500 mg PO BID [facility] Last Admin: 07/16/23 09:11 Dose: 500 mg Ferrous Sulfate (Ferrous Sulfate 324 Mg Tablet.Dr) 324 mg PO DAILY [facility] Last Admin: 07/16/23 09:11 Dose: 324 mg Folic Acid (Folic Acid 1 Mg Tablet) 1 mg PO DAILY [facility] Last Admin: 07/16/23 09:11 Dose: 1 mg Gabapentin (Gabapentin 400 Mg Capsule) 800 mg PO TID [facility] Last Admin: 07/16/23 09:11 Dose: 800 mg Hydroxyzine HCl (Hydroxyzine Hcl 25 Mg Tablet) 25 mg PO Q6H PRN PRN Reason: Anxiety Last Admin: 07/15/23 11:12 Dose: 25 mg Lidocaine (Lidocaine 4 % Patch Adh..Patch) 2 patch TRANSDERMA DAILY [facility]; Protocol Last Admin: 07/16/23 09:11 Dose: 2 patch Lorazepam (Lorazepam 0.5 Mg Tablet) 0.5 mg PO TID [facility] Stop: 07/17/23 09:00 Last Admin: 07/16/23 09:11 Dose: 0.5 mg Lorazepam (Lorazepam 0.5 Mg Tablet) 0.5 mg PO BID [facility] Stop: 07/18/23 09:00 Lorazepam (Lorazepam 0.5 Mg Tablet) 0.5 mg PO ONCE ONE Stop: 07/18/23 09:01 Magnesium Hydroxide (Milk Of Magnesia 30 Ml Oral.Susp) 30 ml PO DAILY PRN PRN Reason: Constipation Last Admin: 07/11/23 10:34 Dose: 30 ml Melatonin (Melatonin 3 Mg Tablet) 9 mg PO BEDTIME PRN PRN Reason: Sleep Last Admin: 07/16/23 00:42 Dose: 9 mg Multivitamins/Vitamin C (Multivitamin Tablet) 1 tab PO DAILY [facility] Last Admin: 07/16/23 09:10 Dose: 1 tab Nicotine (Nicotine 21 Mg Patch.Td24) 21 mg TRANSDERMA DAILY [facility] Last Admin: 07/16/23 09:10 Dose: 21 mg Nicotine Polacrilex (Nicotine Polacrilex 2 Mg Gum) 4 mg BUCCAL Q2H PRN PRN Reason: Nicotine Cravings Last Admin: 07/11/23 19:51 Dose: 4 mg Olanzapine (Olanzapine 5 Mg Tablet) 5 mg PO Q4H PRN PRN Reason: agitation Last Admin: 07/15/23 13:31 Dose: 5 mg Olanzapine (Olanzapine 5 Mg Tablet) 5 mg PO BEDTIME [facility] Last Admin: 07/15/23 20:43 Dose: 5 mg Omeprazole (Omeprazole 20 Mg Capsule.Dr) 20 mg PO DAILY@0630 [facility] Last Admin: 07/16/23 06:30 Dose: 20 mg Pharmacy Consult (Consult Rx Perform Med Rec) 1 each MISCELLANE ONCE PRN PRN Reason: Consult order Thiamine HCl (Thiamine Hcl 100 Mg Tablet) 100 mg PO DAILY [facility] Last Admin: 07/16/23 09:10 Dose: 100 mg Trazodone HCl (Trazodone Hcl 100 Mg Tablet) 100 mg PO BEDTIME PRN PRN Reason: Sleep Last Admin: 07/16/23 00:41 Dose: 100 mg Allergies Allergies Allergy/AdvReac Type Severity Reaction Status Date / Time SEAFOOD Allergy Unknown UNK Uncoded 07/03/23 15:36 Assessment & Plan Assessment & Plan (1) Bipolar disorder: Status: Acute Code(s): F31.9 - Bipolar disorder, unspecified (2) Alcohol use disorder: Status: Acute Code(s): F10.90 - Alcohol use, unspecified, uncomplicated (3) Polysubstance use disorder: Status: Acute Code(s): F19.90 - Other psychoactive substance use, unspecified, uncomplicated Plan 27 yo female, history of bipolar disorder, alcohol use disorder, polysubstance use disorder presents with family for SI, agitation requiring chemical and physical restraint in the ER. Long hx of addiction and mood destabilization. 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 Possibly detoxing from opiates, barbs and alcohol. Pt is a poor historian. Plan: CT Head, Cervial, Thoracic, Lumbar Spine Xrays, Rib xrays Iron profile, ammonia, lipids, A1C, TSH, B12, Folate Re-establish med regime Clonidine prn Olanzapine hs and prn for mood stabilization Depakote ER 250 mg bid Lorazepam 0.5 mg bid and prn Folate, Thiamine, MVI CIWA and COWS ?Need for Section 35 07/07- continue ciwa. started on muscle relaxant- flexeril. 07/08- detox continues, encourage treatment, retracted TDN 07/09- encourage treatment 07/10 Lorazepam 2 mg po x 1 dose. CIWA when we met today 18 Pepto Bismol prn Discontinue scheduled olanzapine Chlorpromazine 100 mg hs prn agitation, insomnia (Pt is clear that she is awake all night) Clonidine 0.1 mg bid prn withdrawal sx Lorazepam taper beginning 07/11. 07/11- Continue current regime. Discussed with pt Lorazepam tapering. Pt asks if we can hold until 07/14 which we will do. 07/12 continue with same medications At Zyprexa 5 mg p.o. q.h.s. to target mood lability and poor sleep. 07/13 keep same treatment 07/14 Increase Chlorpromazine to 150 mg hs prn Change Pepto Bismal to oral suspension Ativan tapering via CIWA 07/15/23 Lorazepam taper to begin 07/16. 07/16/23 Lorazepam taper 1.5 mg today, 1 mg 07/17, 0.5 mg 07/18. Patient educated on: medication risk/benefits and therapeutic strategies Informed Consent: understands Reason for continued inpatient stay Substantial Risk for: rapid decompensation Time Spent With Patient Time: Total time managing care of this patient today ____ minutes.
[2023-07-16] MEDS: cloNIDine HCL 0.1 MG TABLET PO (14:07)
[2023-07-16] MEDS: Magnesium Hydrox/Alum Hydrox 30 ML ORAL.SUSP PO (14:07)
[2023-07-16] MEDS: Bismuth Subsalicylate Liquid 524 MG/30 ML ORAL.SUSP PO ×2 (16:42→20:47)
[2023-07-16] MEDS: Acetaminophen 325 MG TABLET 650 MG PO (16:43)
[2023-07-16 18:00] VITALS: BP 116/82; PULSE 85; RESP 16; TEMP 36.6; O2SAT 96
[2023-07-16] MEDS: OLANZapine 5 MG TABLET PO (20:24)
[2023-07-16] MEDS: chlorproMAZINE HCl 25 MG TABLET 150 MG PO (20:42)
[2023-07-17 06:00] VITALS: BP 118/60; PULSE 118; RESP 18; TEMP 36.8; O2SAT 96
[2023-07-17] MEDS: Gabapentin 400 MG CAPSULE 800 MG PO ×3 (08:35→19:47)
[2023-07-17] MEDS: Divalproex Sodium ER 500 MG TAB.ER.24H PO ×2 (08:36→19:48)
[2023-07-17] MEDS: LORazepam 0.5 MG TABLET PO ×2 (08:36→20:02)
[2023-07-17] MEDS: Multivitamin TABLET 1 TAB PO (08:36)
[2023-07-17] MEDS: Ferrous Sulfate 324 MG TABLET.DR PO (08:37)
[2023-07-17] MEDS: Folic Acid 1 MG TABLET PO (08:37)
[2023-07-17] MEDS: Thiamine HCL 100 MG TABLET PO (08:37)
[2023-07-17] MEDS: Cyclobenzaprine HCl 10 MG TABLET PO ×3 (08:37→19:47)
[2023-07-17] MEDS: Nicotine 21 MG PATCH.TD24 TRANSDERMA (08:43)
[2023-07-17] MEDS: Bismuth Subsalicylate Liquid 524 MG/30 ML ORAL.SUSP PO ×4 (09:59→20:17)
--- NOTE | 2023-07-17 10:12 | P.PNPSI_ITS ---
Subjective Subjective Date of Service: 07/17/23 Reason For Visit: Si, Polysubstance Use Disorder, Major Depression Subjective Notes: Conditional Voluntary Healthcare Proxy: No Guardianship: No Medical Problems Affecting Mental Status: No Interim History: Preparing for discharge. Father visited who reports he had reached out to [facility] and they may offer pt services after discharge as well. Pt reports feeling anxious- I would rather live here. Interactive with team and peers, visable on the unit. No sx of acute distress. Team reports some primitive splitting behaviors are taking place at times. Medication Compliance: Yes Side effects from medications: No Attending Groups: Intermittent Review of Systems Acute medical concerns: No Medical Review of Systems: unchanged Mental Status Exam Mental Status Exam Patient Appearance: Appropriate Patient Orientation: Person, Place, Time and Situation Level of Consciousness: Alert Patient Behavior: Talkative, Distractible and Good Eye Contact Mood Description: Appropriate and Apprehensive Affect Description: Constricted Patient Cognition Impaired: No Ability to Follow Directions: Fair Speech Pattern: Spontaneous Speech Memory Description: Remote Impaired and Episodic Impaired Hallucinations: None Delusions: Not Present Perceptual Disturbances: Depersonalization and Derealization Thought Process: Intact Thought Content: positive for [place] and positive for Circumstantial Depressive Symptoms: Increased Anxiety and Low Self Esteem Judgement: Good Diagnostics Vital Signs (24Hr): Vital Signs - 24 hr 07/16/23 18:00 07/17/23 06:00 Temperature 97.8 F 98.2 F Pulse Rate 85 118 H Respiratory Rate 16 18 Blood Pressure 116/82 118/60 Pulse Oximetry 96 96 Oxygen Delivery Method Room Air Room Air BMI result Body Mass Index 20.5 Labs 07/10/23 15:29 07/13/23 14:44 Imaging Radiology Impressions: ITS Impressions Lumbar Spine X-Ray 07/07/23 09:20 IMPRESSION: No fracture. Left upper lobe subsegmental atelectasis. Thoracic Spine X-Ray 07/07/23 09:20 IMPRESSION: No fracture. Left upper lobe subsegmental atelectasis. Head CT 07/08/23 09:56 IMPRESSION: No acute intracranial pathology. Medications Medications Current Medications Acetaminophen (Acetaminophen 325 Mg Tablet) 650 mg PO Q6H PRN PRN Reason: Headache/Pain Mild Scale (1-3) Last Admin: 07/16/23 16:43 Dose: 650 mg Al Hydroxide/Mg Hydroxide (Magnesium Hydrox/Alum Hydrox 30 Ml Oral.Susp) 30 ml PO Q6H PRN PRN Reason: Heartburn/Nausea Last Admin: 07/16/23 14:07 Dose: 30 ml Benzocaine (Benzocaine 20 % Oral Gel 9 Gm Tube) 1 appl MUCOUS MEM QID PRN; Protocol PRN Reason: dental pain Bismuth Subsalicylate (Bismuth Subsalicylate Liquid 524 Mg/30 Ml Oral.Susp) 524 mg PO QID PRN PRN Reason: stomach upset Last Admin: 07/17/23 09:59 Dose: 524 mg Chlorpromazine HCl (Chlorpromazine Hcl 25 Mg Tablet) 150 mg PO BEDTIME PRN PRN Reason: agitation, insomnia Last Admin: 07/16/23 20:42 Dose: 150 mg Clonidine HCl (Clonidine Hcl 0.1 Mg Tablet) 0.1 mg PO BID PRN; Protocol PRN Reason: withdrawal Last Admin: 07/16/23 14:07 Dose: 0.1 mg Cyclobenzaprine HCl (Cyclobenzaprine Hcl 10 Mg Tablet) 10 mg PO TID [facility] Last Admin: 07/17/23 08:37 Dose: 10 mg Divalproex Sodium (Divalproex Sodium Er 500 Mg Tab.Er.24h) 500 mg PO BID [facility] Last Admin: 07/17/23 08:36 Dose: 500 mg Ferrous Sulfate (Ferrous Sulfate 324 Mg Tablet.Dr) 324 mg PO DAILY [facility] Last Admin: 07/17/23 08:37 Dose: 324 mg Folic Acid (Folic Acid 1 Mg Tablet) 1 mg PO DAILY [facility] Last Admin: 07/17/23 08:37 Dose: 1 mg Gabapentin (Gabapentin 400 Mg Capsule) 800 mg PO TID [facility] Last Admin: 07/17/23 08:35 Dose: 800 mg Hydroxyzine HCl (Hydroxyzine Hcl 25 Mg Tablet) 25 mg PO Q6H PRN PRN Reason: Anxiety Last Admin: 07/15/23 11:12 Dose: 25 mg Lidocaine (Lidocaine 4 % Patch Adh..Patch) 2 patch TRANSDERMA DAILY [facility]; Protocol Last Admin: 07/17/23 08:38 Dose: Not Given Lorazepam (Lorazepam 0.5 Mg Tablet) 0.5 mg PO BID [facility] Stop: 07/18/23 09:00 Last Admin: 07/17/23 09:04 Dose: Not Given Lorazepam (Lorazepam 0.5 Mg Tablet) 0.5 mg PO ONCE ONE Stop: 07/18/23 09:01 Magnesium Hydroxide (Milk Of Magnesia 30 Ml Oral.Susp) 30 ml PO DAILY PRN PRN Reason: Constipation Last Admin: 07/11/23 10:34 Dose: 30 ml Melatonin (Melatonin 3 Mg Tablet) 9 mg PO BEDTIME PRN PRN Reason: Sleep Last Admin: 07/16/23 00:42 Dose: 9 mg Multivitamins/Vitamin C (Multivitamin Tablet) 1 tab PO DAILY [facility] Last Admin: 07/17/23 08:36 Dose: 1 tab Nicotine (Nicotine 21 Mg Patch.Td24) 21 mg TRANSDERMA DAILY [facility] Last Admin: 07/17/23 08:43 Dose: 21 mg Nicotine Polacrilex (Nicotine Polacrilex 2 Mg Gum) 4 mg BUCCAL Q2H PRN PRN Reason: Nicotine Cravings Last Admin: 07/11/23 19:51 Dose: 4 mg Olanzapine (Olanzapine 5 Mg Tablet) 5 mg PO Q4H PRN PRN Reason: agitation Last Admin: 07/15/23 13:31 Dose: 5 mg Olanzapine (Olanzapine 5 Mg Tablet) 5 mg PO BEDTIME [facility] Last Admin: 07/16/23 20:24 Dose: 5 mg Omeprazole (Omeprazole 20 Mg Capsule.Dr) 20 mg PO DAILY@0630 [facility] Last Admin: 07/17/23 06:13 Dose: Not Given Pharmacy Consult (Consult Rx Perform Med Rec) 1 each MISCELLANE ONCE PRN PRN Reason: Consult order Thiamine HCl (Thiamine Hcl 100 Mg Tablet) 100 mg PO DAILY [facility] Last Admin: 07/17/23 08:37 Dose: 100 mg Trazodone HCl (Trazodone Hcl 100 Mg Tablet) 100 mg PO BEDTIME PRN PRN Reason: Sleep Last Admin: 07/16/23 00:41 Dose: 100 mg Allergies Allergies Allergy/AdvReac Type Severity Reaction Status Date / Time SEAFOOD Allergy Unknown UNK Uncoded 07/03/23 15:36 Assessment & Plan Assessment & Plan (1) Bipolar disorder: Status: Acute Code(s): F31.9 - Bipolar disorder, unspecified (2) Alcohol use disorder: Status: Acute Code(s): F10.90 - Alcohol use, unspecified, uncomplicated (3) Polysubstance use disorder: Status: Acute Code(s): F19.90 - Other psychoactive substance use, unspecified, uncomplicated Plan 27 yo female, history of bipolar disorder, alcohol use disorder, polysubstance use disorder presents with family for SI, agitation requiring chemical and physical restraint in the ER. Long hx of addiction and mood destabilization. 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 Possibly detoxing from opiates, barbs and alcohol. Pt is a poor historian. Plan: CT Head, Cervial, Thoracic, Lumbar Spine Xrays, Rib xrays Iron profile, ammonia, lipids, A1C, TSH, B12, Folate Re-establish med regime Clonidine prn Olanzapine hs and prn for mood stabilization Depakote ER 250 mg bid Lorazepam 0.5 mg bid and prn Folate, Thiamine, MVI CIWA and COWS ?Need for Section 35 07/07- continue ciwa. started on muscle relaxant- flexeril. 07/08- detox continues, encourage treatment, retracted TDN 07/09- encourage treatment 07/10 Lorazepam 2 mg po x 1 dose. CIWA when we met today 18 Pepto Bismol prn Discontinue scheduled olanzapine Chlorpromazine 100 mg hs prn agitation, insomnia (Pt is clear that she is awake all night) Clonidine 0.1 mg bid prn withdrawal sx Lorazepam taper beginning 07/11. 07/11- Continue current regime. Discussed with pt Lorazepam tapering. Pt asks if we can hold until 07/14 which we will do. 07/12 continue with same medications At Zyprexa 5 mg p.o. q.h.s. to target mood lability and poor sleep. 07/13 keep same treatment 07/14 Increase Chlorpromazine to 150 mg hs prn Change Pepto Bismal to oral suspension Ativan tapering via CIWA 07/15/23 Lorazepam taper to begin 07/16. 07/16/23 Lorazepam taper 1.5 mg today, 1 mg 07/17, 0.5 mg 07/18. 07/17/23 Discharge 07/18/23. Patient educated on: therapeutic strategies Informed Consent: understands Reason for continued inpatient stay Substantial Risk for: rapid decompensation Time Spent With Patient Time: Total time managing care of this patient today ____ minutes.
[2023-07-17] MEDS: hydrOXYzine HCL 25 MG TABLET PO (10:29)
[2023-07-17] MEDS: cloNIDine HCL 0.1 MG TABLET PO ×2 (13:16→21:33)
[2023-07-17 13:17] VITALS: BP 114/67; PULSE 122
[2023-07-17 17:50] VITALS: BP 100/85; PULSE 85; RESP 16; TEMP 36.6; O2SAT 98
[2023-07-17] MEDS: OLANZapine 5 MG TABLET PO ×2 (18:26→19:47)
[2023-07-17 19:28] VITALS: BP 115/60; PULSE 100; RESP 18; TEMP 36.1; O2SAT 100
[2023-07-17] MEDS: chlorproMAZINE HCl 25 MG TABLET 150 MG PO (20:18)
[2023-07-18] MEDS: Melatonin 3 MG TABLET 9 MG PO (00:03)
[2023-07-18] MEDS: traZODone HCL 100 MG TABLET PO (03:16)
[2023-07-18] MEDS: Bismuth Subsalicylate Liquid 524 MG/30 ML ORAL.SUSP PO ×2 (03:18→10:32)
[2023-07-18 06:00] VITALS: BP 106/62; PULSE 110; RESP 18; TEMP 36.2; O2SAT 99
[2023-07-18] MEDS: Omeprazole 20 MG CAPSULE.DR PO (06:12)
[2023-07-18] MEDS: Multivitamin TABLET 1 TAB PO (08:32)
[2023-07-18] MEDS: Folic Acid 1 MG TABLET PO (08:32)
[2023-07-18] MEDS: LORazepam 0.5 MG TABLET PO (08:32)
[2023-07-18] MEDS: Thiamine HCL 100 MG TABLET PO (08:32)
[2023-07-18] MEDS: Cyclobenzaprine HCl 10 MG TABLET PO (08:32)
[2023-07-18] MEDS: Ferrous Sulfate 324 MG TABLET.DR PO (08:32)
[2023-07-18] MEDS: Gabapentin 400 MG CAPSULE 800 MG PO (08:32)
[2023-07-18] MEDS: Divalproex Sodium ER 500 MG TAB.ER.24H PO (08:32)
[2023-07-18] MEDS: Nicotine 21 MG PATCH.TD24 TRANSDERMA (08:32)
--- NOTE | 2023-07-18 09:02 | PM.PSYDC ---
DS: Providers Provider Date of Service: 07/18/23 Date of admission: 07/05/23 17:15 Date of discharge: 07/18/23 Primary care physician: Unknown Physician Admitting clinician: Muriel Alanis Attending physician on admission: Dipak Ruvalcaba Consults: 07/15/23 09:30 Addiction Medicine Routine Consulting Provider: Addiction Covering Reason for consultation: etoh Has provider been notified: No Attending physician on discharge: Dipak Ruvalcaba Discharging clinician: Muriel Alanis DS: Diagnosis Discharge Diagnosis (1) Bipolar disorder: Status: Acute (2) Alcohol use disorder: Status: Acute (3) Polysubstance use disorder: Status: Acute DS: Medications Discharge Medications Home Medications: Home Medications Medication Instructions Recorded Confirmed gabapentin 800 mg tablet 800 mg PO TID 07/05/23 07/05/23 melatonin 5 mg tablet 5 mg PO BEDTIME PRN Sleep 07/05/23 07/05/23 pantoprazole 40 mg tablet,delayed 40 mg PO DAILY 07/05/23 07/05/23 release (Protonix) trazodone 100 mg tablet 100 mg PO BEDTIME PRN Sleep 07/05/23 07/05/23 Previous Rx's Medication Instructions Recorded chlorpromazine 50 mg tablet 150 mg PO BEDTIME #21 tabs 07/17/23 divalproex 500 mg tablet,extended 500 mg PO BID #14 tabs 07/17/23 release 24 hr ferrous sulfate 324 mg (65 mg 324 mg PO DAILY #30 tabs 07/17/23 iron) tablet,delayed release folic acid 1 mg tablet 1 mg PO DAILY #30 tabs 07/17/23 multivitamin (Daily-Damon tablet) 1 tab PO DAILY #30 tabs 07/17/23 nicotine (polacrilex) 2 mg gum 4 mg buccal Q2H PRN Nicotine 07/17/23 Cravings #60 ea nicotine 21 mg/24 hr daily 21 mg transdermal DAILY #30 ea 07/17/23 transdermal patch thiamine mononitrate (vit B1) 100 100 mg PO DAILY #3 tabs 07/17/23 mg tablet Mental Status Exam Mental Status Exam Patient Appearance: Appropriate Patient Orientation: Person, Place, Time and Situation Level of Consciousness: Alert Patient Behavior: Talkative, Distractible and Good Eye Contact Mood Description: Appropriate and Apprehensive Affect Description: Constricted Patient Cognition Impaired: No Ability to Follow Directions: Fair Speech Pattern: Spontaneous Speech Memory Description: Remote Impaired and Episodic Impaired Hallucinations: None Delusions: Not Present Perceptual Disturbances: Depersonalization and Derealization Thought Process: Intact Thought Content: positive for [place] and positive for Circumstantial Depressive Symptoms: Increased Anxiety and Low Self Esteem Judgement: Good Data Data Completed and Pending Completed studies during hospitalization [Text1]: 07/13/23 07/13/23 07/13/23 14:44 14:44 14:44 Sodium 138 Potassium 4.2 Chloride 103 Carbon Dioxide 28 Anion Gap 11 L BUN 10 Creatinine 0.60 Estim Creat Clear Calc 120.4 Estimated GFR > 60 Random Glucose 158 H Calcium 9.2 D Total Bilirubin 0.1 AST 18 ALT 10 Alkaline Phosphatase 70 Ammonia 41 Total Protein 7.1 Albumin 3.7 Lipase 28 Valproic Acid 36.5 L 07/10/23 16:00 Urine clean catch - Clean Catch Midstream Urine Culture - Final No growth. Imaging Diagnostic Imaging Impressions Lumbar Spine X-Ray 07/07/23 09:20 IMPRESSION: No fracture. Left upper lobe subsegmental atelectasis. Thoracic Spine X-Ray 07/07/23 09:20 IMPRESSION: No fracture. Left upper lobe subsegmental atelectasis. Head CT 07/08/23 09:56 IMPRESSION: No acute intracranial pathology. DS: Summary Hospital Course Hospital Course: Admission to adult psychiatry for exacerbation of bipolar disorder, alcohol and polysubstance use. Pt had stopped medications, relapsed, and verbalized SI. Family reported over 72 attempted interventions for pt including Section 35 without improvement in symptoms. Pt completed a difficult detox with much education needed regarding medication seeking symptoms. Medically, symptoms were evaluated and treated. Pt was encouraged to work in the milieu. She identified the of her mother in 2021 and the upcoming loss of her children, ages 8, 7, and 3 as they are in the process of being adopted by their paternal grandmother as main stressors. Pt's father is very supportive and involved in her care. Pt refused CSS She did agreed to out patient and intensive out patient treatment upon discharge with [facility]. Time spent discussing smoking cessation with patient: 3 to 10 minutes Status at Discharge Functional status at discharge: independent ambulation Overall status at discharge: patient is progressing back to baseline Time Spent with Patient Time attestation: Total time managing care of this patient today ____ minutes. Time spent: Greater than 30 minutes Discharge Plan Discharge Anticipated Discharge Date/Time: 07/18/23 12:18 Patient Disposition: Home, Self-Care Discharge Diagnosis: Bipolar Disorder Alcohol Use Disorder Polysubstance Use Disorder Referrals: Mary Lala (Psychiatry): [facility] [Other] - 07/28/23 10:00 am (Hospital discharge appointment with psychiatric medication provider Appointment is in person at [facility] in [place]) Debo Presley (Therapist): [facility] [Other] - 07/23/23 9:00 am (Hospital follow-up discharge appointment with therapist. Appointment is in person at [facility] in [place].) [facility]nette [facility]: Intensive Outpatient Program (IOP) [Other] - 1 Week (Referral to [facility] for substance use treatment. Patient will self present to [facility] and meet with staff on scheduled day of intake. Patient should follow-up with IOP program to obtain date of intake as it was not provided prior to discharge ) [facility] [Other] - 1 Week (If you have any issues or concerns please utilize the walk in center or give them a call. ) Discharge Medications: New nicotine 21 mg/24 hr Patch 24 Hour 21 mg transdermal DAILY Qty: 30 0RF No Action trazodone 50 mg tablet 50 - 100 mg PO BEDTIME PRN (Reason: insomnia) nicotine (polacrilex) 2 mg gum 4 mg PO Q2H PRN (Reason: nicotine cravings) naltrexone 50 mg tablet 50 mg PO DAILY gabapentin 800 mg tablet 800 mg PO QID divalproex 500 mg tablet extended release 24 hr 500 mg PO BID folic acid 1 mg tablet 1 mg PO DAILY hydroxyzine HCl 25 mg tablet 25 - 50 mg PO BID PRN (Reason: Anxiety) albuterol sulfate [Ventolin HFA] 90 mcg/actuation HFA aerosol inhaler 2 puff inhalation Q4H PRN (Reason: wheezing) chlorpromazine 50 mg tablet 150 mg PO BEDTIME ferrous sulfate 324 mg (65 mg iron) tablet,delayed release (DR/EC) 324 mg PO DAILY melatonin 5 mg tablet 5 mg PO BEDTIME PRN (Reason: insomnia) multivitamin with folic acid [Daily-Damon (with folic acid)] 400 mcg tablet 1 tab PO DAILY Discharge Orders: Discharge Order (Routine); Ordered 07/18/23 Ordered By: Muriel Alanis Diet: Advance to usual diet Activity on Discharge: As tolerated Stand Alone Forms: Patient Portal Discharge page, Community Support Care Plan Goals: Sobriety Mood and Behavioral Stabilization Health Concerns: Sobriety Mood and Behavioral Stabilization Plan of Treatment: Attend scheduled appointments Take medications as directed Work on sobriety Please call [phone] to schedule lab work next week including a Depakote level. Assessment: Pt interviewed prior to discharge and found to be fully oriented and without SI/HI. Pt has insight and demonstrates good judgment in terms of wanting to pursue treatment Pt is not in imminent risk of harm to self or others and has a safety plan that includes presenting to the closest ER or calling 911 if feeling unsafe Pt has been observed closely by nursing and unit staff throughout admission. Pt has not engaged in any behaviors that suggest dangerousness to self or others and has demonstrated appropriate behaviors and impulse control. Discharge Date/Time: 07/18/23 11:49
== END 2023-07-18 11:49 | disposition home or self-care (01) | DRG 753 ==
LOC: HO.ED 22:57 → HO.PM5 07-05 18:04
PROVIDERS: Psychiatry & Neurology Psychiatry; Registered Nurse Emergency; Admitting Provider Clinical Nurse Specialist Psychiatric/Mental Health, Adult; Emergency Provider Emergency Medicine; Visit Provider Clinical Nurse Specialist Psychiatric/Mental Health, Adult
DX: F31.9 Bipolar disorder, unspecified (principal); R45.851 Suicidal ideations; F17.210 Nicotine dependence, cigarettes, uncomplicated; F19.10 Other psychoactive substance abuse, uncomplicated; Z71.6 Tobacco abuse counseling; Z20.822 Contact with and (suspected) exposure to COVID-19; Z79.899 Other long term (current) drug therapy
CPT/HCPCS: 36415; 70450; 72070; 72100; 80048; 80053; 80143; 80164; 80179; 80307; 81003; 82140; 82607; 82746; 83036; 83540; 83690; 84702; 85025; 87086; 87635; 93005; 99285; J1200; J2060; S9485

== ENCOUNTER 2023-07-05 17:15 | Outpatient (BNV) | payer MEDICAID, SELFPAY | END 2023-07-06 09:00 | PROVIDERS: Admitting Provider Clinical Nurse Specialist Psychiatric/Mental Health, Adult; Emergency Provider Emergency Medicine; Visit Provider Internal Medicine | DX: F10.10 Alcohol abuse, uncomplicated (principal) | CPT/HCPCS: 93010 ==

== ENCOUNTER → 2023-07-05 17:15 | Outpatient (BNV) | payer OTHER, SELFPAY | PROVIDERS: Admitting Provider Clinical Nurse Specialist Psychiatric/Mental Health, Adult; Emergency Provider Emergency Medicine; Visit Provider Clinical Nurse Specialist Psychiatric/Mental Health, Adult | DX: F31.9 Bipolar disorder, unspecified (principal); F10.90 Alcohol use, unspecified, uncomplicated; F19.90 Other psychoactive substance use, unspecified, uncomplicated | CPT/HCPCS: 99231; 99232; 99233 ==

== ENCOUNTER 2023-07-22 18:33 | Emergency (ER) | payer MEDICAID, SELFPAY ==
--- NOTE | ~2023-07-22 | CT_ITS ---
EXAMINATION: CT head/brain wo IV con CLINICAL INFORMATION: Reason for Exam mental status change COMPARISON: CT head without contrast 07/08/2023 TECHNIQUE: Contiguous axial imaging was performed from the skull base to vertex without intravenous contrast. Sagittal and coronal reformatted images were obtained. This CT examination was performed using dose optimization techniques as appropriate, variously including the following: * Automated exposure control * Adjustment of mA and/or kV according to patient size (this includes techniques or standardized protocols for targeted exams where dose is matched to indication/reason for exam; i.e. extremities or head) Use of iterative reconstruction technique DLP: 688 mGy-cm FINDINGS: No acute osseous or soft tissue abnormality. The mastoids are clear. Right ethmoid sinus mucosal thickening and opacification. There is no evidence of acute intracranial hemorrhage or territorial infarction. No abnormal mass effect or midline shift is seen. [place] to white matter differentiation is well preserved. No extra-axial fluid collections are identified. No hydrocephalus. No significant volume loss. There is no abnormal attenuation within the brain parenchyma. CT/CT head/brain wo IV con IMPRESSION: No acute intracranial abnormality including hemorrhage, mass effect, hydrocephalus, or acute territorial edematous infarction.
[2023-07-22 18:44] VITALS: BP 113/81; BP 116/84; PULSE 101; PULSE 104; RESP 14; O2SAT 98; BMI 24.2
[2023-07-22 19:02] LABS: Glucose, Whole Blood 104 mg/dL (60-115)
--- NOTE | 2023-07-22 19:02 | ECG_ITS ---
Test Reason : ETOH Blood Pressure : / mmHG Vent. Rate : 088 BPM Atrial Rate : 088 BPM P-R Int : 138 ms QRS Dur : 084 ms QT Int : 376 ms P-R-T Axes : 069 061 053 degrees QTc Int : 454 ms Normal sinus rhythm Normal ECG When compared with ECG of 16-JUL-2023 10:13, No significant change was found Referred By: Bharat Wheeler Electronically Signed By:EBER VAUGHAN
--- NOTE | 2023-07-22 19:04 | ED.AMS ---
HPI - Altered Mental Status General Chief Complaint: ETOH/Substance Use Stated Complaint: ETOH, a/ox1 Time Seen by Provider: 07/22/23 18:57 Source: patient and EMS Mode of arrival: EMS Limitations: no limitations History of Present Illness HPI narrative: 27-year-old female no brought in by ambulance for further evaluation after was found by her dad unresponsive. Patient with known history of alcohol abuse and alcohol withdrawal, patient found by her father unresponsive who think that she drink too much alcohol today, as per EMS medication bag was checked with no concern of possible medication overdose, patient here is responding to me with her name, with alcohol smell on her breath. Patient is a limited historian at this point. Related Data Home Medications Medication Instructions Recorded Confirmed gabapentin 800 mg tablet 800 mg PO TID 07/05/23 07/05/23 melatonin 5 mg tablet 5 mg PO BEDTIME PRN Sleep 07/05/23 07/05/23 pantoprazole 40 mg tablet,delayed 40 mg PO DAILY 07/05/23 07/05/23 release (Protonix) trazodone 100 mg tablet 100 mg PO BEDTIME PRN Sleep 07/05/23 07/05/23 Previous Rx's Medication Instructions Recorded chlorpromazine 50 mg tablet 150 mg PO BEDTIME #21 tabs 07/17/23 divalproex 500 mg tablet,extended 500 mg PO BID #14 tabs 07/17/23 release 24 hr ferrous sulfate 324 mg (65 mg 324 mg PO DAILY #30 tabs 07/17/23 iron) tablet,delayed release folic acid 1 mg tablet 1 mg PO DAILY #30 tabs 07/17/23 multivitamin (Daily-Damon tablet) 1 tab PO DAILY #30 tabs 07/17/23 nicotine (polacrilex) 2 mg gum 4 mg buccal Q2H PRN Nicotine 07/17/23 Cravings #60 ea nicotine 21 mg/24 hr daily 21 mg transdermal DAILY #30 ea 07/17/23 transdermal patch thiamine mononitrate (vit B1) 100 100 mg PO DAILY #3 tabs 07/17/23 mg tablet Allergies Allergy/AdvReac Type Severity Reaction Status Date / Time SEAFOOD Allergy Unknown UNK Uncoded 07/03/23 15:36 Review of Systems Review of Systems: All other systems are reviewed and are negative Constitutional: Reports as per HPI and Reports no additional constitutional complaints Eyes: Reports as per HPI and Reports no additional eye complaints Reports system reviewed and no additional complaints, except as documented Cardiovascular: Reports as per HPI and Reports no additional cardiovascular complaints Respiratory: Reports as per HPI and Reports no additional respiratory complaints Gastrointestinal: Reports as per HPI and Reports no additional gastrointestinal complaints Genitourinary: Reports no additional female genitourinary complaints Musculoskeletal: Reports no additional musculoskeletal complaints Skin/Breast: Reports system reviewed and no additional complaints, except as docu Psychiatric: Reports no additional psychiatric complaints Endocrine: Reports no additional endocrine complaints Hematologic/Lymphatic: Reports no additional hematologic/lymphatic complaints Allergic/Immunologic: Reports no additional allergic/immunologic complaints Reports system reviewed and no additional complaints, except as documented and Reports Abnormal speech present [facility] Past Medical History Medical History Alcohol use disorder Bipolar disorder Polysubstance use disorder Social History Social History Household Members: Family Household Members Other:: father Housing: Unknown / Unable to assess Do you presently have visiting nurse or other home services: No Alcohol intake: current Alcohol intake frequency: 3 or more drinks per day Alcohol type: hard liquor Patient Tobacco Use Status: Current everyday Tobacco user Tobacco use type: Cigarette e-Cigarette/Vaping Use: Former Use Second Hand Smoke Exposure: Yes Use of substances other than those prescribed or required for medical reasons: Unable to respond Substance Use Type: Opiates and Other Advance Directives: No Advance Directives Information Provided: No service: No Sexual orientation: Straight/Heterosexual Physical Exam ED Vital Signs: Vital Signs - 24 hr 07/22/23 18:44 07/22/23 19:42 07/22/23 21:34 Temperature 98.5 F Pulse Rate 101 H 89 77 Respiratory Rate 14 12 17 Blood Pressure 113/81 105/74 102/69 Pulse Oximetry 98 100 100 Oxygen Delivery Method Room Air Room Air Room Air 07/23/23 00:28 Temperature 97.7 F Pulse Rate 90 Respiratory Rate 16 Blood Pressure 121/83 Pulse Oximetry 98 Oxygen Delivery Method Room Air BMI result Body Mass Index 24.2 Vital signs have been reviewed as appeared to be correct. Blood pressure normal. Heart rate normal. Respiration rate normal. Temperature normal. Oxygen saturation normal. Appearance: Alcohol on breath, slurred speech, Obtunded. No acute distress. Head: Normal external exam. Normocephalic. Atraumatic. No Gómez signs noted. No raccoon eyes noted Eyes: PERRLA. EOMI. Conjunctiva and sclera normal. Eyelids normal. ENT: TM's Normal. Pharynx normal. Uvula midline. Moist mucous membranes. No trismus noted. No drooling noted. No muffled voice noted. Neck: Normal inspection. Neck supple. FROM. No adenopathy. Thyroid Normal. No meningeal signs. No neck mass noted. CVS: Normal heart rate and rhythm. Heart sound normal. No murmurs noted. Pulses normal throughout. Respiratory: No respiratory distress. Painless inspiration. Breath sounds normal. No wheezes/rales/rhonchi noted. Chest nontender. No accessory muscle usage noted or decreased air movement noted. Abdomen: Soft and nontender. Bowel sounds normal in all 4 quadrants. No distention noted. No organomegaly noted. No visible injury noted. Back: No CVA tenderness. Full range of motion noted. Skin: Skin warm and dry. Normal skin color. Normal skin turgor. No rashes/lesions/lacerations noted. Extremities: No lower extremity edema. Extremities exhibit normal range of motion. Extremities nontender. Neuro: Obtunded Cranial nerve exam: II-XII are grossly intact No motor deficit. No sensory deficit. Reflexes normal. Course Course Course Narrative: 27-year-old female came in with acute mental status change, labs, physical exam is consistent with acute alcohol intoxication, patient is sober able to ambulate in the emergency department with steady gait, was discharged with her father to home, patient declined SI or HI. Medications Administered Discontinued Medications Generic Name Dose Route Start Last Admin Trade Name Freq PRN Reason Stop Dose Admin Sodium Chloride 1,000 mls @ 999 mls/hr 07/22/23 19:02 07/22/23 20:56 Ns IV 07/22/23 20:02 Infused .Q1H1M ONE Infusion Medical Decision Making Differential Diagnosis Differential Diagnoses: The differential diagnosis associated with the presentation includes (Substance abuse, intracranial bleed, electrolyte abnormality, severe anemia, OD, SI, acute psychosis.) Admission/Observation Consideration of admission/observation: Escalation of care including admission/observation considered Lab Data MDM Lab Attestation statement: I reviewed the patient's lab results. 07/22/23 18:56 07/22/23 18:56 Labs: Lab Results 07/22/23 07/22/23 07/22/23 Range/Units 18:56 18:58 19:39 WBC 7.9 (4.8-10.8) X10*3/uL RBC 3.80 L D (4.20-5.50) X10*6/uL Hgb 10.8 L (12.0-16.0) g/dl Hct 33.3 L (37.0-47.0) % MCV 87.6 (80.0-98.0) fL MCH 28.4 (27.0-33.0) pg MCHC 32.4 (31.0-35.0) g/dl RDW 18.8 H (11.0-16.0) % Plt Count TNP MPV 10.1 (9.4-12.3) fL Immature Gran % (Auto) 0.4 (0.0-0.4) % Neut % (Auto) 49.4 (45-73) % Lymph % (Auto) 41.5 H (20-40) % [place] % (Auto) 4.5 (2-11) % Eos % (Auto) 2.4 (0-4) % Baso % (Auto) 1.8 (0-2) % Lymph # (Auto) 3.3 (1.2-4.9) X10*3/uL [place] # (Auto) 0.4 (0.1-1.2) X10*3/uL Eos # (Auto) 0.2 (0.0-0.4) X10*3/uL Baso # (Auto) 0.1 (0.0-0.2) X10*3/uL Abs Immat Gran (auto) 0.03 (0.00-0.03) X10*3/uL Absolute Neuts (auto) 3.9 (2.0-8.3) x10*3/uL Absolute Nucleated RBC 0.000 (0.0-0.012) X10*3/uL Nucleated RBC % (auto) 0.0 (0.0-0.2) /100WBC Smear Tech's Comments VERIFIED Sodium 143 (135-145) mmol/L Potassium 4.1 (3.3-5.1) mmol/L Chloride 111 H (96-108) mmol/L Carbon Dioxide 21 L (22-29) mmol/L Anion Gap 15 (12-20) BUN 7 L (9-16) mg/dL Creatinine 0.56 (0.5-1.4) mg/dL Estim Creat Clear Calc 118.5 Estimated GFR > 60 POC Glucose 104 (60-115) mg/dL Random Glucose 107 (60-115) mg/dL Calcium 8.8 (8.4-10.2) mg/dL Total Bilirubin 0.2 (0.0-1.0) mg/dL AST 32 H (5-31) U/L ALT 47 H (0-31) U/L Alkaline Phosphatase 122 H (39-117) U/L Total Protein 7.7 (6.5-8.0) g/dL Albumin 3.8 (3.5-5.0) g/dL Urine Color Urine Appearance Urine pH (5.0-9.0) Ur Specific [place] (1.005-1.025) Urine Protein (Neg-Trace) mg/dL Urine Glucose (UA) (Negative) mg/dL Urine Ketones (Negative) mg/dL Urine Blood (Negative) Urine Nitrite (Negative) Ur Leukocyte Esterase (Negative) Urine RBC (0-2) /HPF Urine WBC (0-5) /HPF Ur Squamous Epith Cells (0-2) /HPF Urine Bacteria (None Seen) Hyaline Casts (0-2) /LPF Urine Test (NEGATIVE) Salicylates (15-30) mg/dL Urine Opiates Screen (Not Detect) Urine Fentanyl Screen (Not Detect) Acetaminophen (<30) mcg/mL Ur Barbiturates Screen (Not Detect) Valproic Acid (50.0-100.0) mcg/mL Ur Phencyclidine Scrn (Not Detect) Ur Amphetamines Screen (Not Detect) U Benzodiazepines Scrn (Not Detect) Urine Cocaine Screen (Not Detect) U Marijuana (THC) Screen (Not Detect) Ethyl Alcohol 444 H* mg/dL 07/22/23 07/22/23 07/22/23 Range/Units 19:39 19:39 21:17 WBC (4.8-10.8) X10*3/uL RBC (4.20-5.50) X10*6/uL Hgb (12.0-16.0) g/dl Hct (37.0-47.0) % MCV (80.0-98.0) fL MCH (27.0-33.0) pg MCHC (31.0-35.0) g/dl RDW (11.0-16.0) % Plt Count MPV (9.4-12.3) fL Immature Gran % (Auto) (0.0-0.4) % Neut % (Auto) (45-73) % Lymph % (Auto) (20-40) % [place] % (Auto) (2-11) % Eos % (Auto) (0-4) % Baso % (Auto) (0-2) % Lymph # (Auto) (1.2-4.9) X10*3/uL [place] # (Auto) (0.1-1.2) X10*3/uL Eos # (Auto) (0.0-0.4) X10*3/uL Baso # (Auto) (0.0-0.2) X10*3/uL Abs Immat Gran (auto) (0.00-0.03) X10*3/uL Absolute Neuts (auto) (2.0-8.3) x10*3/uL Absolute Nucleated RBC (0.0-0.012) X10*3/uL Nucleated RBC % (auto) (0.0-0.2) /100WBC Smear Tech's Comments Sodium (135-145) mmol/L Potassium (3.3-5.1) mmol/L Chloride (96-108) mmol/L Carbon Dioxide (22-29) mmol/L Anion Gap (12-20) BUN (9-16) mg/dL Creatinine (0.5-1.4) mg/dL Estim Creat Clear Calc Estimated GFR POC Glucose (60-115) mg/dL Random Glucose (60-115) mg/dL Calcium (8.4-10.2) mg/dL Total Bilirubin (0.0-1.0) mg/dL AST (5-31) U/L ALT (0-31) U/L Alkaline Phosphatase (39-117) U/L Total Protein (6.5-8.0) g/dL Albumin (3.5-5.0) g/dL Urine Color Yellow Urine Appearance Clear Urine pH 7.0 (5.0-9.0) Ur Specific [place] 1.010 (1.005-1.025) Urine Protein Negative (Neg-Trace) mg/dL Urine Glucose (UA) Negative (Negative) mg/dL Urine Ketones Negative (Negative) mg/dL Urine Blood Negative (Negative) Urine Nitrite Negative (Negative) Ur Leukocyte Esterase Trace H (Negative) Urine RBC 0-2 (0-2) /HPF Urine WBC 0-5 (0-5) /HPF Ur Squamous Epith Cells 3-5 (0-2) /HPF Urine Bacteria 1+ (None Seen) Hyaline Casts 0-2 (0-2) /LPF Urine Test (NEGATIVE) Salicylates < 5.0 L (15-30) mg/dL Urine Opiates Screen (Not Detect) Urine Fentanyl Screen (Not Detect) Acetaminophen < 17 (<30) mcg/mL Ur Barbiturates Screen (Not Detect) Valproic Acid < 12.5 L (50.0-100.0) mcg/mL Ur Phencyclidine Scrn (Not Detect) Ur Amphetamines Screen (Not Detect) U Benzodiazepines Scrn (Not Detect) Urine Cocaine Screen (Not Detect) U Marijuana (THC) Screen (Not Detect) Ethyl Alcohol mg/dL 07/22/23 07/22/23 Range/Units 21:17 21:17 WBC (4.8-10.8) X10*3/uL RBC (4.20-5.50) X10*6/uL Hgb (12.0-16.0) g/dl Hct (37.0-47.0) % MCV (80.0-98.0) fL MCH (27.0-33.0) pg MCHC (31.0-35.0) g/dl RDW (11.0-16.0) % Plt Count MPV (9.4-12.3) fL Immature Gran % (Auto) (0.0-0.4) % Neut % (Auto) (45-73) % Lymph % (Auto) (20-40) % [place] % (Auto) (2-11) % Eos % (Auto) (0-4) % Baso % (Auto) (0-2) % Lymph # (Auto) (1.2-4.9) X10*3/uL [place] # (Auto) (0.1-1.2) X10*3/uL Eos # (Auto) (0.0-0.4) X10*3/uL Baso # (Auto) (0.0-0.2) X10*3/uL Abs Immat Gran (auto) (0.00-0.03) X10*3/uL Absolute Neuts (auto) (2.0-8.3) x10*3/uL Absolute Nucleated RBC (0.0-0.012) X10*3/uL Nucleated RBC % (auto) (0.0-0.2) /100WBC Smear Tech's Comments Sodium (135-145) mmol/L Potassium (3.3-5.1) mmol/L Chloride (96-108) mmol/L Carbon Dioxide (22-29) mmol/L Anion Gap (12-20) BUN (9-16) mg/dL Creatinine (0.5-1.4) mg/dL Estim Creat Clear Calc Estimated GFR POC Glucose (60-115) mg/dL Random Glucose (60-115) mg/dL Calcium (8.4-10.2) mg/dL Total Bilirubin (0.0-1.0) mg/dL AST (5-31) U/L ALT (0-31) U/L Alkaline Phosphatase (39-117) U/L Total Protein (6.5-8.0) g/dL Albumin (3.5-5.0) g/dL Urine Color Urine Appearance Urine pH (5.0-9.0) Ur Specific [place] (1.005-1.025) Urine Protein (Neg-Trace) mg/dL Urine Glucose (UA) (Negative) mg/dL Urine Ketones (Negative) mg/dL Urine Blood (Negative) Urine Nitrite (Negative) Ur Leukocyte Esterase (Negative) Urine RBC (0-2) /HPF Urine WBC (0-5) /HPF Ur Squamous Epith Cells (0-2) /HPF Urine Bacteria (None Seen) Hyaline Casts (0-2) /LPF Urine Test NEGATIVE (NEGATIVE) Salicylates (15-30) mg/dL Urine Opiates Screen Not Detected (Not Detect) Urine Fentanyl Screen Not Detected (Not Detect) Acetaminophen (<30) mcg/mL Ur Barbiturates Screen POSITIVE H (Not Detect) Valproic Acid (50.0-100.0) mcg/mL Ur Phencyclidine Scrn Not Detected (Not Detect) Ur Amphetamines Screen Not Detected (Not Detect) U Benzodiazepines Scrn Not Detected (Not Detect) Urine Cocaine Screen Not Detected (Not Detect) U Marijuana (THC) Screen Not Detected (Not Detect) Ethyl Alcohol mg/dL Independent Interpretation I performed an independent interpretation of an: EKG (Normal sinus rhythm at 88 beats per minutes, normal axis deviation, normal intervals, no change from previous EKG.) and CT Scan (Head CT: No acute intracranial pathology.) Radiology Impression Discussion of test interpretation with radiology: I have reviewed the radiologist's reading. Discharge Plan Discharge Clinical Impression: Alcoholic intoxication Patient Disposition: Home, Self-Care Instructions: Alcohol Intoxication (ED) Prescriptions: No Action gabapentin 800 mg Tablet 800 mg PO TID Rx Instructions: N called and gave medication details as of 06/24 trazodone 100 mg Tablet 100 mg PO BEDTIME PRN (Reason: Sleep) pantoprazole [Protonix] 40 mg Tablet,Delayed Release (Dr/Ec) 40 mg PO DAILY melatonin 5 mg Tablet 5 mg PO BEDTIME PRN (Reason: Sleep) multivitamin [Daily-Damon] Tablet 1 tab PO DAILY Qty: 30 0RF nicotine (polacrilex) 2 mg Gum 4 mg buccal Q2H PRN (Reason: Nicotine Cravings) Qty: 60 0RF divalproex 500 mg Tablet Extended Release 24 Hr 500 mg PO BID Qty: 14 4RF nicotine 21 mg/24 hr Patch 24 Hour 21 mg transdermal DAILY Qty: 30 0RF folic acid 1 mg Tablet 1 mg PO DAILY Qty: 30 0RF ferrous sulfate 324 mg (65 mg iron) Tablet,Delayed Release (Dr/Ec) 324 mg PO DAILY Qty: 30 0RF thiamine mononitrate (vit B1) 100 mg Tablet 100 mg PO DAILY Qty: 3 0RF chlorpromazine 50 mg tablet 150 mg PO BEDTIME Qty: 21 4RF Interventions: ED Discharge Assessment Last Done: 07/23/23 01:38 Discharge Date/Time: 07/23/23 01:39
--- NOTE | 2023-07-22 19:06 | PC.NURSE ---
Report taken from Kristin RN, assumed care of pt at this time. Pt sitting up on stretcher eyes open oriented to person responding to verbal stimulation, drowsy, ETOH noted on breath. Skin sallow warm and dry. MD Wheeler to bedside for primary eval. IV access secured with wrap, labs pending.
[2023-07-22 19:23] LABS: Basophils Percent Auto 1.8 % (0-2); Mean Corpuscular Volume 87.6 fL (80.0-98.0); PLT CLUMP 1; Red Cell Distribution Width 18.8 % (11.0-16.0); SCAN SMEAR FLAG 1
[2023-07-22 19:24] LABS: Basophils Absolute Auto 0.1 X10*3/uL (0.0-0.2); Eosinophils Absolute Auto 0.2 X10*3/uL (0.0-0.4); Eosinophils Percent Auto 2.4 % (0-4); Hematocrit 33.3 % (37.0-47.0); Hemoglobin 10.8 g/dl (12.0-16.0); Imm Gran Abs Auto 0.03 X10*3/uL (0.00-0.03); Imm Gran Pct Auto 0.4 % (0.0-0.4); Lymphocytes Absolute Auto 3.3 X10*3/uL (1.2-4.9); Lymphocytes Percent Auto 41.5 % (20-40); MANUAL DIFF FLAG SCAN; Mean Corpuscular HGB Conc 32.4 g/dl (31.0-35.0); Mean Corpuscular Hemoglobin 28.4 pg (27.0-33.0); Mean Platelet Volume 10.1 fL (9.4-12.3); Monocytes Absolute Auto 0.4 X10*3/uL (0.1-1.2); Monocytes Percent Auto 4.5 % (2-11); Neutrophils Absolute Auto 3.9 x10*3/uL (2.0-8.3); Neutrophils Percent Auto 49.4 % (45-73)
[2023-07-22] MEDS: 0.9 % Sodium Chloride 1,000 ML 999 ML IV (19:34)
--- NOTE | 2023-07-22 19:37 | MHC.RECOVSUP ---
? Reason for consult:ETOH o? Current location:ED09? o? Identified substance use concern:? -? Support ? Intervention:N/A ? Plan:N/A ? Additional information:RC attempted to meet with this pt, this pt is alert but highly intoxicated and unresponsive. Please follow up with her tomorrow.
[2023-07-22 19:42] VITALS: BP 105/74; PULSE 89; RESP 12; O2SAT 100
--- NOTE | 2023-07-22 19:43 | PC.NURSE ---
IVF hung and infusing without difficulty. VSS. NSR on monitor. Labs hemolyzed- redrawn and sent for processing.
[2023-07-22 20:04] LABS: Valproate < 12.5 mcg/mL (50.0-100.0)
[2023-07-22 20:05] LABS: Alanine Aminotransferase 47 U/L (0-31); Albumin Level 3.8 g/dL (3.5-5.0); Alkaline Phosphatase 122 U/L (39-117); Anion Gap 15 (12-20); Aspartate Amino Transferase 32 U/L (5-31); Bilirubin Total 0.2 mg/dL (0.0-1.0); Blood Urea Nitrogen 7 mg/dL (9-16); Calcium 8.8 mg/dL (8.4-10.2); Carbon Dioxide 21 mmol/L (22-29); Chloride 111 mmol/L (96-108); Creatinine Clr Calc Pharmacy 118.5; Estimated Glomerular Filt Rate > 60; Ethanol 444 mg/dL; Glucose Random 107 mg/dL (60-115); Potassium 4.1 mmol/L (3.3-5.1); Sodium 143 mmol/L (135-145); Total Protein 7.7 g/dL (6.5-8.0)
[2023-07-22 20:06] LABS: White Blood Count 7.9 X10*3/uL (4.8-10.8)
[2023-07-22 20:08] LABS: Acetaminophen LAB < 17 mcg/mL (<30); Salicylate < 5.0 mg/dL (15-30)
[2023-07-22 20:36] LABS: SLIDE REVIEW VERIFIED
[2023-07-22 21:24] LABS: UPreg QC Valid YES; Urine Pregnancy NEGATIVE (NEGATIVE)
[2023-07-22 21:25] LABS: Appearance Urine Clear; Color Urine Yellow; Glucose Urine UA Negative (Negative); Leukocyte Esterase Urine Trace (Negative); Nitrite Urine Negative (Negative); UMIC TRIGGER UACC YES; Urine Blood Negative (Negative); Urine Ketones Negative (Negative); Urine Protein Negative (Neg-Trace)
[2023-07-22 21:27] LABS: Bacteria Urine 1+ (None Seen); Hyaline Casts Urine 0-2 /LPF (0-2); RBC Urine 0-2 /HPF (0-2); WBC Urine 0-5 /HPF (0-5)
[2023-07-22 21:33] LABS: Amphetamine Screen Urine Not Detected (Not Detect); Barbiturates, Urine POSITIVE (Not Detect); Benzodiazepines Screen Urine Not Detected (Not Detect); Cannabinoid Screen Urine Not Detected (Not Detect); Cocaine Screen Urine Not Detected (Not Detect); Fentanyl, urine Not Detected (Not Detect); Opiate Screen Urine Not Detected (Not Detect); Phencyclidine Screen Urine Not Detected (Not Detect)
[2023-07-22 21:34] VITALS: BP 102/69; PULSE 77; RESP 17; TEMP 36.9; O2SAT 100
--- NOTE | 2023-07-23 00:17 | PC.NURSE ---
IVF completed, pt tolerating PO. More alert than upon arrival, requesting phone to call dad. Able to answer RN questions without difficulty. Denies SI/HI.
[2023-07-23 00:28] VITALS: BP 121/83; PULSE 90; RESP 16; TEMP 36.5; O2SAT 98
--- NOTE | 2023-07-23 00:28 | MHC.EDTECH ---
This tech assumed care o0f patient at 2300, vitals were updated and patient is resting comfortably at this time.
--- NOTE | 2023-07-23 00:53 | PC.NURSE ---
Pt ambulatory with steady gait, IV access removed by RN. Pt ok to DC with responsible adult per MD Wheeler. 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
[2023-07-23 08:59] VITALS: BMI 27.3
== END 2023-07-23 01:40 | disposition home or self-care (01) ==
PROVIDERS: Emergency Provider Emergency Medicine
DX: F10.220 Alcohol dependence with intoxication, uncomplicated (principal); Y90.8 Blood alcohol level of 240 mg/100 ml or more; F31.9 Bipolar disorder, unspecified; F19.90 Other psychoactive substance use, unspecified, uncomplicated; F17.210 Nicotine dependence, cigarettes, uncomplicated; Z79.899 Other long term (current) drug therapy
CPT/HCPCS: 36415; 70450; 80053; 80143; 80164; 80179; 80307; 81001; 81025; 82947; 85025; 93005; 96360; 99284; 99285

== ENCOUNTER 2023-07-23 08:30 | Emergency (ER) | payer MEDICAID, OTHER, SELFPAY ==
[2023-07-23 09:18] VITALS: BMI 25.4
[2023-07-23 09:21] VITALS: BP 104/70; PULSE 119; RESP 18; TEMP 36.9; O2SAT 99
--- NOTE | 2023-07-23 09:45 | ED_ITS ---
HPI - Alcohol General Chief Complaint: ETOH/Substance Use Stated Complaint: crisis Source: patient Mode of arrival: ambulatory Limitations: no limitations History of Present Illness HPI narrative: Patient was intoxicated yesterday, seen yesterday with ETOH level of 444. Now feels like she wants detox. In addition patient is suicidal. Patient cut herself in the past. Patient feels like she wants to complaint: alcohol intoxication and desires rehab Last drink: Hours (ago) Related Data Home Medications Medication Instructions Recorded Confirmed gabapentin 800 mg tablet 800 mg PO TID 07/05/23 07/05/23 melatonin 5 mg tablet 5 mg PO BEDTIME PRN Sleep 07/05/23 07/05/23 pantoprazole 40 mg tablet,delayed 40 mg PO DAILY 07/05/23 07/05/23 release (Protonix) trazodone 100 mg tablet 100 mg PO BEDTIME PRN Sleep 07/05/23 07/05/23 Previous Rx's Medication Instructions Recorded chlorpromazine 50 mg tablet 150 mg PO BEDTIME #21 tabs 07/17/23 divalproex 500 mg tablet,extended 500 mg PO BID #14 tabs 07/17/23 release 24 hr ferrous sulfate 324 mg (65 mg 324 mg PO DAILY #30 tabs 07/17/23 iron) tablet,delayed release folic acid 1 mg tablet 1 mg PO DAILY #30 tabs 07/17/23 multivitamin (Daily-Damon tablet) 1 tab PO DAILY #30 tabs 07/17/23 nicotine (polacrilex) 2 mg gum 4 mg buccal Q2H PRN Nicotine 07/17/23 Cravings #60 ea nicotine 21 mg/24 hr daily 21 mg transdermal DAILY #30 ea 07/17/23 transdermal patch thiamine mononitrate (vit B1) 100 100 mg PO DAILY #3 tabs 07/17/23 mg tablet Allergies Allergy/AdvReac Type Severity Reaction Status Date / Time SEAFOOD Allergy Unknown UNK Uncoded 07/23/23 09:17 Review of Systems Review of Systems: Yes all other systems are reviewed and are negative Psychiatric: Psychiatric: Reports suicidal ideation PMFSH Past Medical History Medical History Alcohol use disorder Bipolar disorder Polysubstance use disorder Social History Social History Household Members: Family Household Members Other:: father Housing: Unknown / Unable to assess Do you presently have visiting nurse or other home services: No Alcohol intake: current Alcohol intake frequency: 3 or more drinks per day Alcohol type: hard liquor Patient Tobacco Use Status: Current everyday Tobacco user Tobacco use type: Cigarette e-Cigarette/Vaping Use: Former Use Second Hand Smoke Exposure: Yes Substance Use Type: Opiates and Other Advance Directives: No service: No Sexual orientation: Straight/Heterosexual Physical Exam ED Vital Signs: Vital Signs - 24 hr 07/23/23 09:21 07/23/23 11:59 Temperature 98.4 F 97.9 F Pulse Rate 119 H 101 H Respiratory Rate 18 18 Blood Pressure 104/70 116/77 Pulse Oximetry 99 100 Oxygen Delivery Method Room Air BMI result Body Mass Index 25.4 Const Other: anxious thin agitated Nutritional Appearance: average body habitus Orientation/consciousness: oriented to person and patient oriented x3 Limitations: no limitations HENMT Head: Yes normal to inspection Ears: external ears normal General nose exam: Normal external nose present Mouth: Normal oral and palatal mucosa present and oropharynx normal Throat: Yes posterior oropharynx normal Eyes General: appearance normal, both eyes and all related structures Neck Neck: Yes normal visual inspection Chest Chest palpation & inspection: normal inspection of the chest Resp Auscultation: clear to auscultation bilaterally Cardio Jugular venous distension: no JVD Rate: regular rate Rhythm: regular rhythm Heart sounds: S1 normal heart sound present and S2 normal heart sound present GI Inspection: Yes normal to inspection Palpation (GI): Soft to palpation, nontender and No hepatosplenomegaly present Auscultation: normal bowel sounds General: Yes no CVA tenderness Back/Spine/Pelvis Back: no CVA tenderness Skin General skin exam: no rashes or lesions noted Neuro General: oriented to person and patient oriented x3 Cranial nerves: Yes CN's II-XII intact bilaterally Motor exam (neuro): 5/5 motor strength present throughout Extrem General: Yes normal to inspection Psych Appearance: disheveled Affect: Labile affect present and Anxious affect present Attitude: Guarded attititude/behavior present Course Reevaluation(s) Reevaluation #1: patient currently being treated for alcohol withdrawal, she is suicidal and needs psychiatric intervention, she has been papered Time: 15:36 Reevaluation #2: I spent 40 minutes of critical care, with interventions, assessments, speaking to patient, consultants, and family. Time: 15:36 Medical Decision Making Differential Diagnosis Differential Diagnoses: The differential diagnosis associated with the presentation includes (suicidal ideation, depression, alcohol intoxication, alcohol withdrawal) Admission/Observation Consideration of admission/observation: Escalation of care including admission/observation considered (upon arrival patient was considered for admission) Consult Healthcare Provider Management of the patient was discussed with: Behavioral Health Provider Lab Data MDM Lab Attestation statement: I reviewed the patient's lab results. (positive barbituates noted waiting on bloods) Labs: Lab Results 07/23/23 07/23/23 07/23/23 Range/Units 14:45 14:45 14:45 Urine Color Yellow Urine Appearance Clear Urine pH 6.5 (5.0-9.0) Ur Specific [place] 1.015 (1.005-1.025) Urine Protein Negative (Neg-Trace) mg/dL Urine Glucose (UA) Negative (Negative) mg/dL Urine Ketones Negative (Negative) mg/dL Urine Blood Negative (Negative) Urine Nitrite Negative (Negative) Ur Leukocyte Esterase Small (1+) H (Negative) Urine RBC 3-5 H (0-2) /HPF Urine WBC 6-10 H (0-5) /HPF Ur Squamous Epith Cells 11-20 (0-2) /HPF Urine Bacteria 4+ (None Seen) Hyaline Casts 0-2 (0-2) /LPF Urine Test NEGATIVE (NEGATIVE) Urine Opiates Screen Not Detected (Not Detect) Urine Fentanyl Screen Not Detected (Not Detect) Ur Barbiturates Screen POSITIVE H (Not Detect) Ur Phencyclidine Scrn Not Detected (Not Detect) Ur Amphetamines Screen Not Detected (Not Detect) U Benzodiazepines Scrn Not Detected (Not Detect) Urine Cocaine Screen Not Detected (Not Detect) U Marijuana (THC) Screen Not Detected (Not Detect) Independent Historian Clinical information obtained from an independent historian. History obtained from or confirmed by: Parent (father gave history and understands the plan) External Record Review External record reviewed: Outpatient record Chronic Conditions Patient?s care impacted by: Other (alcoholism and psychiatric) Social Determinants Patient?s care significantly limited by Social Determinants of Health including: Alcoholism and drug addiction in family Medications Administered Generic Name Dose Route Start Last Admin Trade Name Freq PRN Reason Stop Dose Admin Gabapentin 600 mg 07/23/23 11:25 07/23/23 13:12 Gabapentin 600 Mg Tablet PO 600 mg TID KATHY Administration Lorazepam 2 mg 07/23/23 11:22 07/23/23 12:04 Lorazepam 1 Mg Tablet PO 2 mg Q4H PRN Administration [facility] 13-17 Omeprazole 20 mg 07/23/23 11:25 07/23/23 13:12 Omeprazole 20 Mg Capsule.Dr PO 20 mg DAILY@0630 KATHY Administration Thiamine HCl 100 mg 07/23/23 11:15 07/23/23 12:04 Thiamine Hcl 100 Mg Tablet PO 100 mg DAILY KATHY Administration Discontinued Medications Generic Name Dose Route Start Last Admin Trade Name Freq PRN Reason Stop Dose Admin Sodium Chloride 1,000 mls @ 999 mls/hr 07/23/23 09:45 07/23/23 11:07 Ns IV 07/23/23 10:45 Not Given .Q1H1M KATHY Lorazepam 2 mg 07/23/23 10:20 07/23/23 10:26 Lorazepam 1 Mg Tablet PO 07/23/23 10:21 2 mg ONCE ONE Administration Ondansetron HCl 4 mg 07/23/23 10:20 07/23/23 10:32 Ondansetron Odt 4 Mg Tab.Rapdis TRANSLINGU 07/23/23 10:21 4 mg ONCE ONE Administration Discharge Plan Discharge Clinical Impression: Alcoholic intoxication, Agitation, Polysubstance use disorder, Suicidal ideation Patient Disposition: Still a Patient Prescriptions: No Action gabapentin 800 mg Tablet 800 mg PO TID Rx Instructions: [facility] called and gave medication details as of 06/24 trazodone 100 mg Tablet 100 mg PO BEDTIME PRN (Reason: Sleep) pantoprazole [Protonix] 40 mg Tablet,Delayed Release (Dr/Ec) 40 mg PO DAILY melatonin 5 mg Tablet 5 mg PO BEDTIME PRN (Reason: Sleep) multivitamin [Daily-Damon] Tablet 1 tab PO DAILY Qty: 30 0RF nicotine (polacrilex) 2 mg Gum 4 mg buccal Q2H PRN (Reason: Nicotine Cravings) Qty: 60 0RF divalproex 500 mg Tablet Extended Release 24 Hr 500 mg PO BID Qty: 14 4RF nicotine 21 mg/24 hr Patch 24 Hour 21 mg transdermal DAILY Qty: 30 0RF folic acid 1 mg Tablet 1 mg PO DAILY Qty: 30 0RF ferrous sulfate 324 mg (65 mg iron) Tablet,Delayed Release (Dr/Ec) 324 mg PO DAILY Qty: 30 0RF thiamine mononitrate (vit B1) 100 mg Tablet 100 mg PO DAILY Qty: 3 0RF chlorpromazine 50 mg tablet 150 mg PO BEDTIME Qty: 21 4RF Interventions: LWBS Worksheet Last Done: 07/23/23 08:40
[2023-07-23 10:00] VITALS: BP 105/70; PULSE 92; RESP 16; TEMP 37; O2SAT 98
--- NOTE | 2023-07-23 10:15 | PC.NURSE ---
attempted to start IV and obtain labs/fluids. pt refusing iv - provider aware, agitated with staff but redirectable. attempting to leave room, agreeable to take PO ativan/zofran. changed over by security/pct. continuously stating she wishes to leave and go smoke, pt made a section 12 by provider.
[2023-07-23] MEDS: LORazepam 1 MG TABLET 2 MG PO ×2 (10:26→12:04)
[2023-07-23] MEDS: Ondansetron ODT 4 MG TAB.RAPDIS TRANSLINGU (10:32)
--- NOTE | 2023-07-23 11:05 | PC.NURSE ---
Pt currently refusing vitals. Repeated attempts to get patient to answer assessment questions have failed. Pt continues to ask for her father, and ask to leave. Pt informed that she is unable to leave at this time and reassured that her belongings are secured. Will reattempt. Pt presently appears agitated, pacing around [place], but otherwise in NAD. Main ED nurse contacted regarding baseline CIWA assessment. WCTA
--- NOTE | 2023-07-23 11:18 | PC.NURSE ---
ED animal husbandry technician and this RN repeatedly requested to complete basic lab work and collect vitals; Patient continues to refuse all interventions.
[2023-07-23 11:59] VITALS: BP 116/77; PULSE 101; RESP 18; TEMP 36.6; O2SAT 100
--- NOTE | 2023-07-23 11:59 | PC.NURSE ---
Pt has agreed to allow this RN and tech to take vitals/do basic labs.
[2023-07-23] MEDS: Thiamine HCL 100 MG TABLET PO (12:04)
--- NOTE | 2023-07-23 12:51 | MHC.CARE ---
Pt currently 13 on CIWA scale and was given Ativan at 12:30 PM. Patient reports feeling sick, tremors in both hands and she reports history of seizures.Pt currently denies SI/HI and reports she did tell MD she wanted to , however she wants to go to [facility] for detox and get treatment for her alcoghol use.
[2023-07-23] MEDS: Omeprazole 20 MG CAPSULE.DR PO (13:12)
[2023-07-23] MEDS: Gabapentin 600 MG TABLET PO ×2 (13:12→15:46)
--- NOTE | 2023-07-23 13:53 | MHC.CARE ---
Pt's father reports pt went to [facility] ED at 3 AM and was discharged, she came home and father drove her to [facility]. He reports she consumes alcohol 24/, she has not eaten in 2 days and often she leaves the home at all hours in the morning seeking out liquor stores that are open. He is advocating for pt to go to a 3 months detox in [place].
[2023-07-23 15:07] LABS: Appearance Urine Clear; Color Urine Yellow; Glucose Urine UA Negative (Negative); Leukocyte Esterase Urine Small (1+) (Negative); Nitrite Urine Negative (Negative); PH 6.5 (5.0-9.0); Specific Gravity - Urine 1.015 (1.005-1.025); UMIC TRIGGER UA YES; Urine Blood Negative (Negative); Urine Ketones Negative (Negative); Urine Protein Negative (Neg-Trace)
[2023-07-23 15:09] LABS: UPreg QC Valid YES; Urine Pregnancy NEGATIVE (NEGATIVE)
[2023-07-23 15:11] LABS: Amphetamine Screen Urine Not Detected (Not Detect); Barbiturates, Urine POSITIVE (Not Detect); Benzodiazepines Screen Urine Not Detected (Not Detect); Cannabinoid Screen Urine Not Detected (Not Detect); Cocaine Screen Urine Not Detected (Not Detect); Fentanyl, urine Not Detected (Not Detect); Opiate Screen Urine Not Detected (Not Detect); Phencyclidine Screen Urine Not Detected (Not Detect)
[2023-07-23 15:12] LABS: Bacteria Urine 4+ (None Seen); Hyaline Casts Urine 0-2 /LPF (0-2)
[2023-07-23 16:58] VITALS: BP 124/85; PULSE 85; RESP 16; TEMP 37.4; O2SAT 100
[2023-07-23 17:32] LABS: Glucose, Whole Blood 71 mg/dL (60-115)
--- NOTE | 2023-07-23 17:33 | PC.NURSE ---
Pt found to be lethargic by this RN, difficult to arouse. MD Tesfaye notified of alteration in mental status, provider recommending we hold PRN Ativan for ETOH withdrawal and check POC blood glucose. Pt found to have a glucose of 70, PO sugar provided. VSS. Pt more alert and oriented after juice/food. Attempt x3 to obtain blood specimen for basic labs - difficult stick. Pt currently sitting in milieu eating converse with another patient, appears in NAD. Pt continues to endorse abdominal pain, she states this pain is chronic. WCTA
[2023-07-23 18:01] VITALS: BP 126/85; PULSE 81; RESP 12; TEMP 36.9; O2SAT 100
--- NOTE | 2023-07-23 18:05 | PC.NURSE ---
Attempt x4 to obtain blood specimen unsuccessful - patient remains lethargic, MD Tesfaye aware. POC glucose within reference range, juice/solid foods provided. Pt states that she feels unwell. VSS. PRN Ativan held due to AMS. Contacting charge regarding possible relocation to main ED for IVMF if x5 attempt is unsuccessful to obtain lab specimen.
[2023-07-23 18:20] LABS: COVID-19 Test Negative (Negative); IDNOW Serial# BCCEAD1C
[2023-07-23 18:29] LABS: MANUAL DIFF FLAG NO
--- NOTE | 2023-07-23 18:40 | PC.NURSE ---
Pt remains lethargic, difficult to arouse. VSS - BP: 114/71, RR: 12, O2: 99% on RA, HR: 67. Provider aware. Blood sent, awaiting lab results.
[2023-07-23 18:47] LABS: Alanine Aminotransferase 38 U/L (0-31); Albumin Level 3.7 g/dL (3.5-5.0); Alkaline Phosphatase 108 U/L (39-117); Anion Gap 11 (12-20); Aspartate Amino Transferase 30 U/L (5-31); Bilirubin Total 0.4 mg/dL (0.0-1.0); Blood Urea Nitrogen 8 mg/dL (9-16); Carbon Dioxide 25 mmol/L (22-29); Chloride 103 mmol/L (96-108); Creatinine Clr Calc Pharmacy 119.1; Estimated Glomerular Filt Rate > 60; Ethanol < 10 mg/dL; Glucose Random 95 mg/dL (60-115); Potassium 3.5 mmol/L (3.3-5.1); Sodium 135 mmol/L (135-145); Total Protein 7.1 g/dL (6.5-8.0)
[2023-07-23 18:48] LABS: Acetaminophen LAB < 17 mcg/mL (<30); Salicylate < 5.0 mg/dL (15-30)
[2023-07-23 18:50] LABS: Basophils Absolute Auto 0.1 X10*3/uL (0.0-0.2); Eosinophils Absolute Auto 0.2 X10*3/uL (0.0-0.4); Eosinophils Percent Auto 1.9 % (0-4); Hematocrit 24.8 % (37.0-47.0); Hemoglobin 8.2 g/dl (12.0-16.0); Imm Gran Abs Auto 0.04 X10*3/uL (0.00-0.03); Imm Gran Pct Auto 0.4 % (0.0-0.4); Lymphocytes Absolute Auto 2.7 X10*3/uL (1.2-4.9); Lymphocytes Percent Auto 30.4 % (20-40); Mean Corpuscular HGB Conc 33.1 g/dl (31.0-35.0); Mean Corpuscular Hemoglobin 28.9 pg (27.0-33.0); Mean Corpuscular Volume 87.3 fL (80.0-98.0); Mean Platelet Volume 8.4 fL (9.4-12.3); Monocytes Absolute Auto 0.7 X10*3/uL (0.1-1.2); Monocytes Percent Auto 7.9 % (2-11); Neutrophils Absolute Auto 5.3 x10*3/uL (2.0-8.3); Neutrophils Percent Auto 58.4 % (45-73); Platelet Count 365 X10*3/uL (160-400); Red Blood Count 2.84 X10*6/uL (4.20-5.50)
--- NOTE | 2023-07-23 18:58 | PC.NURSE ---
2mg PO Ativan not given due to lethargy. Med wasted with Dev CHERRY.
--- NOTE | 2023-07-23 22:39 | PHA.MEDREC ---
Pharmacy Consult ? Medication Reconciliation Pharmacy has reviewed the medication reconciliation completed by Dev.
[2023-07-24 00:43] VITALS: BP 111/79; PULSE 82; RESP 17; TEMP 36.4; O2SAT 100
[2023-07-24] MEDS: LORazepam 1 MG TABLET PO ×4 (00:47→16:40)
[2023-07-24] MEDS: Gabapentin 600 MG TABLET PO ×3 (00:48→16:40)
--- NOTE | 2023-07-24 00:52 | PC.NURSE ---
CIWA @ 0045 9, Ativan 1 mg po administered/pending effect
--- NOTE | 2023-07-24 05:59 | PC.NURSE ---
Patient slept through the night, no distress observed/reported except reported discomfort related to ETOH withdrawal, behavior non concerning, medication compliant, VSS, pending care team evaluation, will continue to monitor.
[2023-07-24] MEDS: Omeprazole 20 MG CAPSULE.DR PO (06:49)
[2023-07-24] MEDS: Thiamine HCL 100 MG TABLET PO (08:00)
--- NOTE | 2023-07-24 12:48 | MHC.CARE ---
Referral for Dual Dx Inpatient sent to [facility] team to f/u with V[facility]
[2023-07-24 14:15] VITALS: BP 122/87; PULSE 110; RESP 16; TEMP 36.9; O2SAT 98
[2023-07-24 14:47] LABS: Hematocrit 27.7 % (37.0-47.0); Hemoglobin 8.9 g/dl (12.0-16.0); Mean Corpuscular HGB Conc 32.1 g/dl (31.0-35.0); Mean Corpuscular Hemoglobin 28.4 pg (27.0-33.0); Mean Corpuscular Volume 88.5 fL (80.0-98.0); Mean Platelet Volume 8.5 fL (9.4-12.3); Platelet Count 362 X10*3/uL (160-400); Red Blood Count 3.13 X10*6/uL (4.20-5.50); Red Cell Distribution Width 17.7 % (11.0-16.0); White Blood Count 7.2 X10*3/uL (4.8-10.8)
--- NOTE | 2023-07-24 16:13 | MHC.CARE ---
Patient is accepted to [facility] with ETA as soon as possible. [facility] [place] [address] [address] Jeremy Manning
== END 2023-07-24 17:37 ==
PROVIDERS: Emergency Medicine; Emergency Provider Emergency Medicine
DX: F10.239 Alcohol dependence with withdrawal, unspecified (principal); Y90.8 Blood alcohol level of 240 mg/100 ml or more; R45.851 Suicidal ideations; F17.210 Nicotine dependence, cigarettes, uncomplicated; Z20.822 Contact with and (suspected) exposure to COVID-19; Z20.828 Contact with and (suspected) exposure to other viral communicable diseases; Z79.899 Other long term (current) drug therapy; Z71.6 Tobacco abuse counseling
CPT/HCPCS: 36415; 80053; 80143; 80179; 80307; 81001; 81003; 81025; 82947; 85025; 85027; 87635; 99285; S9485

== ENCOUNTER 2023-11-10 08:53 | Emergency (ER) | payer MEDICAID, SELFPAY ==
[2023-11-10 09:08] VITALS: BP 118/74; PULSE 88; RESP 18; TEMP 37; O2SAT 99; BMI 27.3
--- NOTE | 2023-11-10 09:13 | ECG_ITS ---
Test Reason : MEDICAL CLEARANCE Blood Pressure : / mmHG Vent. Rate : 075 BPM Atrial Rate : 075 BPM P-R Int : 134 ms QRS Dur : 084 ms QT Int : 412 ms P-R-T Axes : 056 042 035 degrees QTc Int : 460 ms Normal sinus rhythm with sinus arrhythmia Normal ECG When compared with ECG of 22-JUL-2023 20:26, Nonspecific T wave abnormality now evident in Anterior leads Referred By: Generic ED Physician Electronically Signed By:Markus Yen
[2023-11-10 09:43] LABS: Appearance Urine Cloudy; Color Urine Yellow; Glucose Urine UA Negative (Negative); Leukocyte Esterase Urine Negative (Negative); Nitrite Urine Negative (Negative); PH 8.5 (5.0-9.0); UMIC TRIGGER UACC YES; Urine Blood Trace (Negative); Urine Ketones Negative (Negative); Urine Protein Trace mg/dL (Neg-Trace)
[2023-11-10 09:45] LABS: UPreg QC Valid YES; Urine Pregnancy NEGATIVE (NEGATIVE)
[2023-11-10 09:47] LABS: Bacteria Urine None Seen (None Seen); Hyaline Casts Urine 0-2 /LPF (0-2); RBC Urine 0-2 /HPF (0-2); WBC Urine 0-5 /HPF (0-5)
[2023-11-10 09:51] LABS: Amphetamine Screen Urine Not Detected (Not Detect); Barbiturates, Urine Not Detected (Not Detect); Benzodiazepines Screen Urine Not Detected (Not Detect); Cannabinoid Screen Urine Not Detected (Not Detect); Cocaine Screen Urine Not Detected (Not Detect); Fentanyl, urine Not Detected (Not Detect); Opiate Screen Urine Not Detected (Not Detect); Phencyclidine Screen Urine Not Detected (Not Detect)
[2023-11-10 10:02] LABS: COVID-19 Test Negative (Negative); IDNOW Serial# BCCEAD1C
--- NOTE | 2023-11-10 10:37 | ED_ITS ---
HPI - General Adult General Chief complaint: General Medical Stated complaint: Medical clearance for program Time Seen by Provider: 11/10/23 10:24 Source: patient Mode of arrival: ambulatory Limitations: no limitations History of Present Illness HPI narrative: 28 yold female with pmh of alcohol abuse and anemia presents to the ED for medical clearance for sober house. patient secondary complaint is fatigue, nausea, epigastric pain and dysepesia for couple of weeks. Patient states no chest pain, shortness of breath, pleurisy, leg swelling, calf pain, or recent trauma.. Patient states fever or chills. Patient last drink was in july. Patient denies any tremors, or auditory/visual hallucinations. Patient states last drink in july Related Data Home Medications Medication Instructions Recorded Confirmed albuterol sulfate 90 mcg/actuation 2 puff inhalation Q4H PRN wheezing 07/23/23 07/23/23 aerosol inhaler (Ventolin HFA) chlorpromazine 50 mg tablet 150 mg PO BEDTIME 07/23/23 07/23/23 divalproex 500 mg tablet,extended 500 mg PO BID 07/23/23 07/23/23 release 24 hr ferrous sulfate 324 mg (65 mg 324 mg PO DAILY 07/23/23 07/23/23 iron) tablet,delayed release folic acid 1 mg tablet 1 mg PO DAILY 07/23/23 07/23/23 gabapentin 800 mg tablet 800 mg PO QID 07/23/23 07/23/23 hydroxyzine HCl 25 mg tablet 25 - 50 mg PO BID PRN Anxiety 07/23/23 07/23/23 melatonin 5 mg tablet 5 mg PO BEDTIME PRN insomnia 07/23/23 07/23/23 multivitamin with folic acid 400 1 tab PO DAILY 07/23/23 07/23/23 mcg tablet (Daily-Damon (with folic acid)) naltrexone 50 mg tablet 50 mg PO DAILY 07/23/23 07/23/23 nicotine (polacrilex) 2 mg gum 4 mg PO Q2H PRN nicotine cravings 07/23/23 07/23/23 trazodone 50 mg tablet 50 - 100 mg PO BEDTIME PRN insomnia 07/23/23 07/23/23 Previous Rx's Medication Instructions Recorded nicotine 21 mg/24 hr daily 21 mg transdermal DAILY #30 ea 07/17/23 transdermal patch famotidine 20 mg tablet (Pepcid) 20 mg PO BID 7 days #14 tabs 11/10/23 Allergies Allergy/AdvReac Type Severity Reaction Status Date / Time SEAFOOD Allergy Unknown UNK Uncoded 07/23/23 09:17 Review of Systems 2 Review of Systems: Needs medical clearance. Secondary complaint for fatigue, nausea, dyspepsia. Yes all other systems are reviewed and are negative PMFSH Past Medical History Medical History Alcohol use disorder Bipolar disorder Polysubstance use disorder Social History Social History Household Members: Family Household Members Other:: father Housing: Unknown / Unable to assess Do you presently have visiting nurse or other home services: No Alcohol intake: current Alcohol intake frequency: 3 or more drinks per day Alcohol type: hard liquor Patient Tobacco Use Status: Current everyday Tobacco user Tobacco use type: Cigarette e-Cigarette/Vaping Use: Former Use Second Hand Smoke Exposure: Yes Substance Use Type: Opiates and Other Advance Directives: No service: No Sexual orientation: Straight/Heterosexual Physical Exam ED Vital Signs: Vital Signs - 24 hr 11/10/23 09:08 11/10/23 12:55 Temperature 98.6 F Pulse Rate 88 80 Respiratory Rate 18 16 Blood Pressure 118/74 103/64 Pulse Oximetry 99 100 Oxygen Delivery Method Room Air Room Air BMI result Body Mass Index 27.3 Const General: cooperative, healthy appearing, comfortable, no acute distress, well developed, alert, awake and Physically active Orientation/consciousness: oriented to person, oriented to place, oriented to time and patient oriented x3 HENMT Head: Yes normal to inspection, Yes No palpable skull fracture present, Yes normocephalic and Yes atraumatic Eyes General: appearance normal, both eyes and all related structures Neck Neck: Yes normal visual inspection, Yes full ROM, Yes no lymphadenopathy, Yes no meningeal signs, Yes trachea midline, Yes supple, No anterior neck swelling and No tender Chest Chest palpation & inspection: normal inspection of the chest and normal palpation of entire chest wall Resp Effort & Inspection: normal respiratory effort and able to speak in complete sentences Auscultation: clear to auscultation bilaterally Cardio Jugular venous distension: no JVD Heart sounds: S1 normal heart sound present and S2 normal heart sound present GI Inspection: Yes normal to inspection and No abdominal wall ecchymosis Palpation (GI): Tenderness to palpation present (GI) in the epigastrum; not in the LLQ, not in the RLQ, not in the LUQ, not in the RUQ, not at McBurney's point, not periumbilically, not suprapubicly, Alvarenga's sign negative, obturator sign negative, psoas sign negative, with no rebound tenderness and Rovsing's sign negative, no guarding and not rigid General: No CVA tenderness and Yes no CVA tenderness Back/Spine/Pelvis Back: no CVA tenderness, No CVA tenderness and No back tenderness Skin General skin exam: no rashes or lesions noted, elasticity normal and turgor normal Neuro General: oriented to person, oriented to place, oriented to time, patient oriented x3, gait normal, Normal light touch and pain sensation, no meningeal signs and no focal motor deficits Extrem General: Yes normal to inspection, Yes full ROM and Yes capillary refill normal Psych Appearance: grossly normal, well kempt and not disheveled Medical Decision Making Medical Decision Making [facility] Narrative: 28-year-old female history of anxiety and anemia presents to ED for medical clearance for sober house the secondary complaint is nausea fatigue and epigastric dyspepsia. Due to patient's history of anemia will do labs to make sure patient is not anemic. Patient presently not having any vaginal bleeding. Patient denies any rectal bleeding or coughing up blood. EKG already ordered at [facility] 12:49pm: Patient hemoglobin hematocrit improved. Liver enzymes and lipase normal. Physical exam negative for signs of cholecystitis, appendicitis, colitis, or kidney stones. Troponin negative. Heart score 0. Patient will follow-up with detox program and Gastroenterology for dyspepsia /GERD. Abdomen soft anad non-tender on re-evaluation. no need for abdominal imaging. Differential Diagnosis Differential Diagnoses: The differential diagnosis associated with the presentation includes ( anemia, cholecystitis, pancreatitis, UTI, kidney stones, COVID) Lab Data [facility] Lab Attestation statement: I reviewed the patient's lab results. 11/10/23 11:43 11/10/23 11:43 Labs: Lab Results 11/10/23 11/10/23 11/10/23 Range/Units 09:22 09:23 11:43 WBC 5.8 (4.8-10.8) X10*3/uL RBC 4.49 D (4.20-5.50) X10*6/uL Hgb 11.2 L D (12.0-16.0) g/dl Hct 35.9 L D (37.0-47.0) % MCV 80.0 (80.0-98.0) fL MCH 24.9 L (27.0-33.0) pg MCHC 31.2 (31.0-35.0) g/dl RDW 15.1 (11.0-16.0) % Plt Count 275 (160-400) X10*3/uL MPV 9.8 (9.4-12.3) fL Immature Gran % (Auto) 0.2 (0.0-0.4) % Neut % (Auto) 62.6 (45-73) % Lymph % (Auto) 29.0 (20-40) % [place] % (Auto) 4.8 (2-11) % Eos % (Auto) 2.7 (0-4) % Baso % (Auto) 0.7 (0-2) % Lymph # (Auto) 1.7 (1.2-4.9) X10*3/uL [place] # (Auto) 0.3 (0.1-1.2) X10*3/uL Eos # (Auto) 0.2 (0.0-0.4) X10*3/uL Baso # (Auto) 0.0 (0.0-0.2) X10*3/uL Abs Immat Gran (auto) 0.01 (0.00-0.03) X10*3/uL Absolute Neuts (auto) 3.7 (2.0-8.3) x10*3/uL Absolute Nucleated RBC 0.000 (0.0-0.012) X10*3/uL Nucleated RBC % (auto) 0.0 (0.0-0.2) /100WBC PT 11.1 (11.1-13.3) SEC INR 0.9 (0.9-1.1) APTT 27.9 (26.0-36.4) SEC Sodium 140 (135-145) mmol/L Potassium 4.3 D (3.3-5.1) mmol/L Chloride 107 (96-108) mmol/L Carbon Dioxide 25 (22-29) mmol/L Anion Gap 12 (12-20) BUN 8 L (9-16) mg/dL Creatinine 0.83 (0.5-1.4) mg/dL Estim Creat Clear Calc 98.2 Estimated GFR > 60 Random Glucose 140 H (60-115) mg/dL Calcium 9.4 (8.4-10.2) mg/dL Total Bilirubin 0.2 (0.0-1.0) mg/dL AST 15 (5-31) U/L ALT 9 (0-31) U/L Alkaline Phosphatase 79 (39-117) U/L Troponin I High Sens < 2.7 (<3.5-17.0) ng/L Total Protein 7.8 (6.5-8.0) g/dL Albumin 4.1 (3.5-5.0) g/dL Lipase 10 (8-78) U/L Urine Color Yellow Urine Appearance Cloudy Urine pH 8.5 (5.0-9.0) Ur Specific [place] 1.020 (1.005-1.025) Urine Protein Trace (Neg-Trace) mg/dL Urine Glucose (UA) Negative (Negative) mg/dL Urine Ketones Negative (Negative) mg/dL Urine Blood Trace H (Negative) Urine Nitrite Negative (Negative) Ur Leukocyte Esterase Negative (Negative) Urine RBC 0-2 (0-2) /HPF Urine WBC 0-5 (0-5) /HPF Ur Squamous Epith Cells 3-5 (0-2) /HPF Urine Bacteria None Seen (None Seen) Hyaline Casts 0-2 (0-2) /LPF Urine Test NEGATIVE (NEGATIVE) Urine Opiates Screen Not Detected (Not Detect) Urine Fentanyl Screen Not Detected (Not Detect) Ur Barbiturates Screen Not Detected (Not Detect) Ur Phencyclidine Scrn Not Detected (Not Detect) Ur Amphetamines Screen Not Detected (Not Detect) U Benzodiazepines Scrn Not Detected (Not Detect) Urine Cocaine Screen Not Detected (Not Detect) U Marijuana (THC) Screen Not Detected (Not Detect) COVID-19 (RACHEL) Negative (Negative) COVID-19 Clin Com See Note Independent Interpretation I performed an independent interpretation of an: EKG (Negative STEMI. NOrmal EKG) Radiology Impression Discussion of test interpretation with radiology: I have reviewed the radiologist's reading. External Record Review External record reviewed: Other ( prior visit) Prescription Management I considered prescription management with: Other Discharge Plan Discharge Clinical Impression: GERD (gastroesophageal reflux disease) Patient Disposition: Home, Self-Care Instructions: Gastroesophageal Reflux Disease (ED), Medical Clearance for Substance Abuse Treatment (ED) Additional Instructions: your blood work came back normal. Your U tox came back negative. He will be discharged with Pepcid for GERD dyspepsia symptoms. Recommend follow-up with primary care provider and upper cutter. Return to the ED immediately for any abdominal pain, nausea, vomiting, fever, chills, tremors, flank pain, chest pain, shortness of breath, dysuria, hematuria, or any other concerning symptoms. Also follow up with detox program. Prescriptions: New famotidine [Pepcid] 20 mg tablet 20 mg PO BID 7 Days Qty: 14 0RF No Action nicotine 21 mg/24 hr Patch 24 Hour 21 mg transdermal DAILY Qty: 30 0RF trazodone 50 mg tablet 50 - 100 mg PO BEDTIME PRN (Reason: insomnia) nicotine (polacrilex) 2 mg gum 4 mg PO Q2H PRN (Reason: nicotine cravings) naltrexone 50 mg tablet 50 mg PO DAILY gabapentin 800 mg tablet 800 mg PO QID divalproex 500 mg tablet extended release 24 hr 500 mg PO BID folic acid 1 mg tablet 1 mg PO DAILY hydroxyzine HCl 25 mg tablet 25 - 50 mg PO BID PRN (Reason: Anxiety) albuterol sulfate [Ventolin HFA] 90 mcg/actuation HFA aerosol inhaler 2 puff inhalation Q4H PRN (Reason: wheezing) chlorpromazine 50 mg tablet 150 mg PO BEDTIME ferrous sulfate 324 mg (65 mg iron) tablet,delayed release (DR/EC) 324 mg PO DAILY melatonin 5 mg tablet 5 mg PO BEDTIME PRN (Reason: insomnia) multivitamin with folic acid [Daily-Damon (with folic acid)] 400 mcg tablet 1 tab PO DAILY Interventions: ED Discharge Assessment Last Done: 11/10/23 12:59 Discharge Date/Time: 11/10/23 13:00 Print Language: Portuguese
[2023-11-10 11:48] LABS: MANUAL DIFF FLAG NO
[2023-11-10 11:50] LABS: Basophils Percent Auto 0.7 % (0-2); Eosinophils Absolute Auto 0.2 X10*3/uL (0.0-0.4); Eosinophils Percent Auto 2.7 % (0-4); Hematocrit 35.9 % (37.0-47.0); Hemoglobin 11.2 g/dl (12.0-16.0); Imm Gran Abs Auto 0.01 X10*3/uL (0.00-0.03); Imm Gran Pct Auto 0.2 % (0.0-0.4); Lymphocytes Absolute Auto 1.7 X10*3/uL (1.2-4.9); Mean Corpuscular HGB Conc 31.2 g/dl (31.0-35.0); Mean Corpuscular Hemoglobin 24.9 pg (27.0-33.0); Mean Platelet Volume 9.8 fL (9.4-12.3); Monocytes Absolute Auto 0.3 X10*3/uL (0.1-1.2); Monocytes Percent Auto 4.8 % (2-11); Neutrophils Absolute Auto 3.7 x10*3/uL (2.0-8.3); Neutrophils Percent Auto 62.6 % (45-73); Platelet Count 275 X10*3/uL (160-400); Red Blood Count 4.49 X10*6/uL (4.20-5.50); Red Cell Distribution Width 15.1 % (11.0-16.0); White Blood Count 5.8 X10*3/uL (4.8-10.8)
[2023-11-10 11:55] LABS: INTERNATIONAL NORM RATIO 0.9 (0.9-1.1); Prothrombin Time 11.1 SEC (11.1-13.3)
[2023-11-10 11:58] LABS: Partial Thromboplastin Time 27.9 SEC (26.0-36.4)
[2023-11-10 12:05] LABS: Alanine Aminotransferase 9 U/L (0-31); Albumin Level 4.1 g/dL (3.5-5.0); Alkaline Phosphatase 79 U/L (39-117); Anion Gap 12 (12-20); Aspartate Amino Transferase 15 U/L (5-31); Bilirubin Total 0.2 mg/dL (0.0-1.0); Blood Urea Nitrogen 8 mg/dL (9-16); Calcium 9.4 mg/dL (8.4-10.2); Carbon Dioxide 25 mmol/L (22-29); Chloride 107 mmol/L (96-108); Creatinine Clr Calc Pharmacy 98.2; Estimated Glomerular Filt Rate > 60; Glucose Random 140 mg/dL (60-115); Lipase 10 U/L (8-78); Potassium 4.3 mmol/L (3.3-5.1); Sodium 140 mmol/L (135-145); Total Protein 7.8 g/dL (6.5-8.0)
[2023-11-10 12:12] LABS: Troponin-I High Sensitivity < 2.7 ng/L (<3.5-17.0)
[2023-11-10 12:55] VITALS: BP 103/64; PULSE 80; RESP 16; O2SAT 100
== END 2023-11-10 13:00 | disposition home or self-care (01) ==
PROVIDERS: Physician Assistant; Emergency Provider Emergency Medicine
DX: Z02.2 Encounter for examination for admission to residential institution (principal); K21.9 Gastro-esophageal reflux disease without esophagitis; F17.210 Nicotine dependence, cigarettes, uncomplicated; Z11.52 Encounter for screening for COVID-19
CPT/HCPCS: 36415; 80053; 80307; 81001; 81025; 83690; 84484; 85025; 85610; 85730; 87635; 93005; 99283

== ENCOUNTER → 2023-11-10 09:13 | Outpatient (BNV) | payer MEDICAID, SELFPAY | PROVIDERS: Emergency Provider Emergency Medicine; Visit Provider Internal Medicine Cardiovascular Disease | DX: R06.09 Other forms of dyspnea (principal); F10.20 Alcohol dependence, uncomplicated | CPT/HCPCS: 93010 ==

== ENCOUNTER 2024-01-09 11:54 | Emergency (ER) | payer MEDICAID, SELFPAY ==
[2024-01-09 11:55] VITALS: BP 109/63; PULSE 89; RESP 20; TEMP 37.2; O2SAT 98; BMI 29.0
--- NOTE | 2024-01-09 11:58 | ED_ITS ---
HPI - URI/Sore Throat General Chief Complaint: Upper Respiratory Symptoms Stated Complaint: chills, headache, nausea Time Seen by Provider: 01/09/24 13:24 Source: patient Mode of arrival: ambulatory Limitations: no limitations History of Present Illness HPI Narrative: Patient is a 28-year-old female with history of alcohol use disorder, polysubstance use disorder, bipolar disorder, and anemia presenting to the emergency department with complaint of nausea and intermittent vomiting for the past 2 months, lightheadedness, sweats and chills, shakiness, nonproductive cough, headache. Was seen here recently and prescribed famotidine which she states improved her symptoms but she ran out and did not follow up with her PCP. Reports niece has recently been sick with similar symptoms. Denies abdominal pain, diarrhea, constipation. Has not checked temperature with thermometer. Also complaining of dysuria and vaginal odor. Reports history of BV and states symptoms feel the same. Denies chance of , states she is currently menstruating. Denies concern for STIs. Denies recent alcohol use or drug use. MD elicited complaint: fever and other Pertinent past history: other Onset (ago): day(s) Able to tolerate fluids by mouth: Yes Context: sick contacts Associated symptoms: chills, headache, cough, nausea and vomiting Treatments prior to arrival: none Related Data Home Medications Medication Instructions Recorded Confirmed albuterol sulfate 90 mcg/actuation 2 puff inhalation Q4H PRN wheezing 07/23/23 07/23/23 aerosol inhaler (Ventolin HFA) chlorpromazine 50 mg tablet 150 mg PO BEDTIME 07/23/23 07/23/23 divalproex 500 mg tablet,extended 500 mg PO BID 07/23/23 07/23/23 release 24 hr ferrous sulfate 324 mg (65 mg 324 mg PO DAILY 07/23/23 07/23/23 iron) tablet,delayed release folic acid 1 mg tablet 1 mg PO DAILY 07/23/23 07/23/23 gabapentin 800 mg tablet 800 mg PO QID 07/23/23 07/23/23 hydroxyzine HCl 25 mg tablet 25 - 50 mg PO BID PRN Anxiety 07/23/23 07/23/23 melatonin 5 mg tablet 5 mg PO BEDTIME PRN insomnia 07/23/23 07/23/23 multivitamin with folic acid 400 1 tab PO DAILY 07/23/23 07/23/23 mcg tablet (Daily-Damon (with folic acid)) naltrexone 50 mg tablet 50 mg PO DAILY 07/23/23 07/23/23 nicotine (polacrilex) 2 mg gum 4 mg PO Q2H PRN nicotine cravings 07/23/23 07/23/23 trazodone 50 mg tablet 50 - 100 mg PO BEDTIME PRN insomnia 07/23/23 07/23/23 Previous Rx's Medication Instructions Recorded nicotine 21 mg/24 hr daily 21 mg transdermal DAILY #30 ea 07/17/23 transdermal patch famotidine 20 mg tablet (Pepcid) 20 mg PO BID 7 days #14 tabs 11/10/23 metronidazole 500 mg tablet 500 mg PO BID 7 days #13 tabs 01/09/24 nitrofurantoin macrocrystal 100 mg 100 mg PO BID 5 days #10 caps 01/09/24 capsule Allergies Allergy/AdvReac Type Severity Reaction Status Date / Time SEAFOOD Allergy Unknown UNK Uncoded 07/23/23 09:17 Review of Systems 2 Review of Systems: As per HPI. Yes all other systems are reviewed and are negative Constitutional: Constitutional: Reports as per HPI PMFSH Past Medical History Medical History Alcohol use disorder Bipolar disorder Polysubstance use disorder Social History Social History Household Members: Family Household Members Other:: father Housing: Unknown / Unable to assess Do you presently have visiting nurse or other home services: No Alcohol intake: current Alcohol intake frequency: 3 or more drinks per day Alcohol type: hard liquor Patient Tobacco Use Status: Current everyday Tobacco user Tobacco use type: Cigarette e-Cigarette/Vaping Use: Former Use Second Hand Smoke Exposure: Yes Substance Use Type: Opiates and Other Advance Directives: No Advance Directives Information Provided: No service: No Sexual orientation: Straight/Heterosexual Physical Exam 2 Vital Signs: Vital Signs: Last Vital Signs Temp 99 F 01/09/24 11:55 Pulse 89 01/09/24 11:55 Resp 20 01/09/24 11:55 BP 109/63 01/09/24 11:55 Pulse Ox 98 01/09/24 11:55 O2 Del Method Room Air 01/09/24 11:55 BMI result Body Mass Index 29.0 Vital signs have been reviewed and appear to be correct. Blood pressure normal. Heart rate normal. Respiratory rate normal. Temperature normal. Oxygen saturation normal. Const: General: cooperative, healthy appearing and no acute distress O rientation/consciousness: oriented to person, oriented to place, oriented to time and patient oriented x3 Limitations: no limitations HEENT: Head: Yes normocephalic and Yes atraumatic Ears: external ears normal General nose exam: Normal external nose present Face and sinus: Yes face symmetric Mouth: tongue normal (No fasciculations), oropharynx normal and moist mucous membranes Throat: Yes uvula midline Eyes: Pupils: Equal, round and reactive pupils present Neck: Neck: Yes normal visual inspection and Yes supple Resp: Effort & Inspection: normal respiratory effort and able to speak in complete sentences Auscultation: clear to auscultation bilaterally Cardio: Rate: regular rate Rhythm: regular rhythm Heart sounds: S1 normal heart sound present and S2 normal heart sound present GI: Palpation (GI): Soft to palpation and nontender Auscultation: n ormoactive bowel sounds : General: Yes no CVA tenderness Back/Spine/Pelvis: Back: no CVA tenderness Skin: General skin exam: elasticity normal and turgor normal Neuro: General: oriented to person, oriented to place, oriented to time, patient oriented x3, gait normal, tone normal, moves all extremities, Normal light touch and pain sensation, no focal motor deficits, CN's II-XI intact bilaterally and deep tendon reflexes 2+ bilaterally Cranial nerves: Yes Equal, round and reactive pupils present Cognition (Neuro): normal cognition Motor exam (neuro): 5/5 motor strength present throughout, no tremor noted, Normal motor muscle tone present throughout and Motor abnormalities not present Extrem: General: Yes full ROM, Yes no pedal edema and Yes no calf tenderness Psych: Mental Status: mental status grossly normal Affect: normal affect Thought process: Normal thought process present Course Course Course Narrative: This is an RME: Additional HPI, ROS, PE not included below will be deferred to primary provider. Patient is a 28-year-old female reporting that she is feeling shaky, night sweats, cough, headache, nausea and vomiting for the past 3 days, reports niece ill recently with similar symptoms. Also concerned for BV due to vaginal itch, burning, discharge and dysuria. Believes nose piercing may be infected, requesting antibiotic. Expresses concern for seizures due to her shakiness, reports a history of seizure surrounding alcohol use question during withdrawal, reports that she has been sober from alcohol for 8 months, denies any relapse. Plan: labs, viral testing, U/A Medical Decision Making Medical Decision Making [facility] Narrative: Patient is a 28-year-old female with history of alcohol use disorder, polysubstance use disorder, bipolar disorder, and anemia presenting to the emergency department with complaint of nausea and intermittent vomiting for the past 2 months, lightheadedness, sweats and chills, shakiness, nonproductive cough, headache. On exam patient is awake, A+Ox3, VS WNL, afebrile, normal neurological exam without focal deficits, physical exam findings as above. Given reported symptoms and physical exam findings, initial differential includes viral illness, Covid, flu, UTI, GERD, BV, gonorrhea, chlamydia. Labs notable for chronic microcytic anemia, no leukocytosis, no electrolyte abnormalities, no evidence of ALEJANDRA, normal LFTs, negative. Urinalysis notable for 2+ blood, 1+ leukocytes, 21-50 wbc's, 4+ bacteria, 11-20 epithelial cells. Given urinary symptoms, will treat for UTI, blood likely due to menstruation. CT NG and BV pending. Patient noted to be eating and drinking in ED exam room and has not vomited, feel she is stable for discharge home. Will treat for BV while results pending at patient's request. Will treat for UTI with macrobid. Will prescribe additional course of famotidine and refer to GI for further evaluation of symptoms. Discussed with patient that she get adequate rest, adequate fluid intake. Instructed patient to follow-up with primary care provider. Return precautions discussed at bedside. Patient verbalized understanding of and agreement with plan. Differential Diagnosis Differential Diagnoses: The differential diagnosis associated with the presentation includes As per [facility]. Lab Data [facility] Lab Attestation statement: I reviewed the patient's lab results. As per [facility]. 01/09/24 12:24 01/09/24 12:24 Labs: Lab Results 01/09/24 01/09/24 Range/Units 12:08 12:24 WBC 5.8 (4.8-10.8) X10*3/uL RBC 3.75 L (4.20-5.50) X10*6/uL Hgb 9.3 L (12.0-16.0) g/dl Hct 29.5 L (37.0-47.0) % MCV 78.7 L (80.0-98.0) fL MCH 24.8 L (27.0-33.0) pg MCHC 31.5 (31.0-35.0) g/dl RDW 15.0 (11.0-16.0) % Plt Count 210 (160-400) X10*3/uL MPV 9.2 L (9.4-12.3) fL Immature Gran % (Auto) 0.2 (0.0-0.4) % Neut % (Auto) 64.6 (45-73) % Lymph % (Auto) 25.2 (20-40) % [place] % (Auto) 7.1 (2-11) % Eos % (Auto) 2.6 (0-4) % Baso % (Auto) 0.3 (0-2) % Lymph # (Auto) 1.5 (1.2-4.9) X10*3/uL [place] # (Auto) 0.4 (0.1-1.2) X10*3/uL Eos # (Auto) 0.2 (0.0-0.4) X10*3/uL Baso # (Auto) 0.0 (0.0-0.2) X10*3/uL Abs Immat Gran (auto) 0.01 (0.00-0.03) X10*3/uL Absolute Neuts (auto) 3.7 (2.0-8.3) x10*3/uL Absolute Nucleated RBC 0.000 (0.0-0.012) X10*3/uL Nucleated RBC % (auto) 0.0 (0.0-0.2) /100WBC Sodium 136 (135-145) mmol/L Potassium 4.2 (3.3-5.1) mmol/L Chloride 105 (96-108) mmol/L Carbon Dioxide 22 (22-29) mmol/L Anion Gap 13 (12-20) BUN 9 (9-16) mg/dL Creatinine 0.63 (0.5-1.4) mg/dL Estim Creat Clear Calc 143.1 Estimated GFR > 60 Random Glucose 200 H (60-115) mg/dL Calcium 8.6 D (8.4-10.2) mg/dL Total Bilirubin 0.2 (0.0-1.0) mg/dL AST 12 (5-31) U/L ALT 8 (0-31) U/L Alkaline Phosphatase 67 (39-117) U/L Total Protein 7.1 (6.5-8.0) g/dL Albumin 3.7 (3.5-5.0) g/dL Lipase 5 L (8-78) U/L Urine Color Dark Yellow Urine Appearance Cloudy Urine pH 6.0 (5.0-9.0) Ur Specific [place] >= 1.030 H (1.005-1.025) Urine Protein Trace (Neg-Trace) mg/dL Urine Glucose (UA) Negative (Negative) mg/dL Urine Ketones Negative (Negative) mg/dL Urine Blood Moderate (2+) H (Negative) Urine Nitrite Negative (Negative) Ur Leukocyte Esterase Small (1+) H (Negative) Urine RBC 6-10 H (0-2) /HPF Urine WBC 21-50 H (0-5) /HPF Ur Squamous Epith Cells 11-20 (0-2) /HPF Urine Bacteria 4+ (None Seen) Hyaline Casts 0-2 (0-2) /LPF Urine Yeast Present Urine Test NEGATIVE (NEGATIVE) COVID-19 (RACHEL) Negative (Negative) COVID-19 Clin Com See Note Influenza Type A () Negative (Negative) Influenza Type B () Negative (Negative) Influenza A & B Note See Note External Record Review External record reviewed: Inpatient record, Office record and Outpatient record Prescription Management I considered prescription management with: Antibiotic and Other Discharge Plan Discharge Clinical Impression: Urinary tract infection, Bacterial vaginosis, GERD (gastroesophageal reflux disease) Patient Disposition: Home, Self-Care Instructions: Bacterial Vaginosis (ED), Urinary Tract Infection in Women (DC), Gastroesophageal Reflux Disease (DC) Additional Instructions: Your evaluation in the emergency department today showed evidence of a urinary tract infection. You are also being treated for bacterial vaginosis. Please complete the full course of your antibiotics as prescribed. You are being prescribed famotidine for gastroesophageal reflux disease. You are also being referred to Gastroenterology for further evaluation of your symptoms. Please call their office to schedule an appointment. Be sure to get adequate rest and adequate fluid intake. Return to the emergency department if you develop persistent vomiting, or unable to tolerate food or fluids by mouth, fever 100.4? F or greater, severe pain or any other concerning symptoms. Prescriptions: New nitrofurantoin macrocrystal 100 mg capsule 100 mg PO BID 5 Days Qty: 10 0RF Rx Instructions: must administer with a meal/food metronidazole 500 mg tablet 500 mg PO BID 7 Days Qty: 13 0RF Rx Instructions: You were given the 1st dose of this medication in the emergency department, take the next dose tomorrow morning (01/10/24). No Action nicotine 21 mg/24 hr Patch 24 Hour 21 mg transdermal DAILY Qty: 30 0RF famotidine [Pepcid] 20 mg tablet 20 mg PO BID 7 Days Qty: 14 0RF trazodone 50 mg tablet 50 - 100 mg PO BEDTIME PRN (Reason: insomnia) nicotine (polacrilex) 2 mg gum 4 mg PO Q2H PRN (Reason: nicotine cravings) naltrexone 50 mg tablet 50 mg PO DAILY gabapentin 800 mg tablet 800 mg PO QID divalproex 500 mg tablet extended release 24 hr 500 mg PO BID folic acid 1 mg tablet 1 mg PO DAILY hydroxyzine HCl 25 mg tablet 25 - 50 mg PO BID PRN (Reason: Anxiety) albuterol sulfate [Ventolin HFA] 90 mcg/actuation HFA aerosol inhaler 2 puff inhalation Q4H PRN (Reason: wheezing) chlorpromazine 50 mg tablet 150 mg PO BEDTIME ferrous sulfate 324 mg (65 mg iron) tablet,delayed release (DR/EC) 324 mg PO DAILY melatonin 5 mg tablet 5 mg PO BEDTIME PRN (Reason: insomnia) multivitamin with folic acid [Daily-Damon (with folic acid)] 400 mcg tablet 1 tab PO DAILY Referrals: [facility] [Provider Group]
[2024-01-09 12:16] LABS: UPreg QC Valid YES; Urine Pregnancy NEGATIVE (NEGATIVE)
[2024-01-09 12:18] LABS: Appearance Urine Cloudy; Color Urine Dark Yellow; Glucose Urine UA Negative (Negative); Leukocyte Esterase Urine Small (1+) (Negative); Nitrite Urine Negative (Negative); Specific Gravity - Urine >= 1.030 (1.005-1.025); UMIC TRIGGER UACC YES; Urine Blood Moderate (2+) (Negative); Urine Ketones Negative (Negative); Urine Protein Trace mg/dL (Neg-Trace)
[2024-01-09 12:29] LABS: MANUAL DIFF FLAG NO
[2024-01-09 12:31] LABS: Basophils Percent Auto 0.3 % (0-2); Eosinophils Absolute Auto 0.2 X10*3/uL (0.0-0.4); Eosinophils Percent Auto 2.6 % (0-4); Hematocrit 29.5 % (37.0-47.0); Hemoglobin 9.3 g/dl (12.0-16.0); Imm Gran Abs Auto 0.01 X10*3/uL (0.00-0.03); Imm Gran Pct Auto 0.2 % (0.0-0.4); Lymphocytes Absolute Auto 1.5 X10*3/uL (1.2-4.9); Lymphocytes Percent Auto 25.2 % (20-40); Mean Corpuscular HGB Conc 31.5 g/dl (31.0-35.0); Mean Corpuscular Hemoglobin 24.8 pg (27.0-33.0); Mean Corpuscular Volume 78.7 fL (80.0-98.0); Mean Platelet Volume 9.2 fL (9.4-12.3); Monocytes Absolute Auto 0.4 X10*3/uL (0.1-1.2); Monocytes Percent Auto 7.1 % (2-11); Neutrophils Absolute Auto 3.7 x10*3/uL (2.0-8.3); Neutrophils Percent Auto 64.6 % (45-73); Platelet Count 210 X10*3/uL (160-400); Red Blood Count 3.75 X10*6/uL (4.20-5.50); White Blood Count 5.8 X10*3/uL (4.8-10.8)
[2024-01-09 12:33] LABS: Bacteria Urine 4+ (None Seen); Hyaline Casts Urine 0-2 /LPF (0-2); UACC Culture Trigger YES; WBC Urine 21-50 /HPF (0-5)
[2024-01-09 12:44] LABS: Alanine Aminotransferase 8 U/L (0-31); Albumin Level 3.7 g/dL (3.5-5.0); Alkaline Phosphatase 67 U/L (39-117); Anion Gap 13 (12-20); Aspartate Amino Transferase 12 U/L (5-31); Bilirubin Total 0.2 mg/dL (0.0-1.0); Blood Urea Nitrogen 9 mg/dL (9-16); Calcium 8.6 mg/dL (8.4-10.2); Carbon Dioxide 22 mmol/L (22-29); Chloride 105 mmol/L (96-108); Creatinine Clr Calc Pharmacy 143.1; Estimated Glomerular Filt Rate > 60; Glucose Random 200 mg/dL (60-115); Lipase 5 U/L (8-78); Potassium 4.2 mmol/L (3.3-5.1); Sodium 136 mmol/L (135-145); Total Protein 7.1 g/dL (6.5-8.0)
[2024-01-09 12:51] LABS: COVID-19 Test Negative (Negative); IDNOW Serial# 08D9AD1C; IDNOW Serial# 152EDE1D; Influenza A Negative (Negative); Influenza B2 Negative (Negative)
[2024-01-09] MEDS: Nitrofurantoin Monohyd/M-Cryst 100 MG CAPSULE PO (15:47)
[2024-01-09] MEDS: metroNIDAZOLE 500 MG TABLET PO (15:47)
[2024-01-09 17:12] LABS: CT PCR NOT DETECTED (Not Detect.); NG PCR NOT DETECTED (Not Detect.)
[2024-01-10 14:26] LABS: BV Int Neg Control Negative (Negative); BV Int Pos Control Positive (Positive)
== END 2024-01-09 16:19 | disposition home or self-care (01) ==
PROVIDERS: Nurse Practitioner Family; Emergency Provider Emergency Medicine
DX: N39.0 Urinary tract infection, site not specified (principal); B37.31 Acute candidiasis of vulva and vagina; K21.9 Gastro-esophageal reflux disease without esophagitis; Z11.52 Encounter for screening for COVID-19
CPT/HCPCS: 0353U; 80053; 81001; 81025; 83690; 85025; 87086; 87088; 87480; 87502; 87510; 87635; 87660; 99282; 99283

== ENCOUNTER 2025-06-11 09:29 | Emergency (ER) | payer MEDICAID, SELFPAY ==
[2025-06-11 09:32] VITALS: BP 164/89; PULSE 105; RESP 20; TEMP 36.4; O2SAT 98; BMI 24.1
--- NOTE | 2025-06-11 09:40 | ED_ITS ---
HPI - Alcohol General Chief Complaint: ETOH/Substance Use Stated Complaint: alcohol withdrawals Time Seen by Provider: 06/11/25 09:39 Source: patient and family (dad) Mode of arrival: ambulatory Limitations: no limitations History of Present Illness ED Provider: MICHAEL PATRICK PA-C HPI narrative: 29 year old female with pmhx significant for alcohol use disorder, polysubstance use disorder, bipolar disorder, and anemia presents to he ED today with concern of alcohol withdrawal. Patient states that she has been sober from alcohol for two years. Reports recent miscarriage 1 month ago causing her to relapse. Admits to consuming approximately 13 nips of Smirnoff vodka yesterday. Her last drink was around 2300 last night. On waking this morning, she began to feel shaky, lightheaded, nausea. Reports a few episodes of vomiting nonbloody emesis. Reports history of etoh withdrawal/ withdrawal seizures. She is requesting detox. She states that if she goes home, she knows she is going to continue consuming alcohol. Denies AH/VH/TH. Denies SI/HI. Denies illicit substance use. Related Data Home Medications ?Medication ?Instructions ?Recorded ?Confirmed albuterol sulfate 90 mcg/actuation 2 puff inhalation Q 4H PRN wheezing 07/23/23 07/23/23 aerosol inhaler (Ventolin HFA) chlorpromazine 50 mg tablet 150 mg PO BEDTIME 07/23/23 07/23/23 divalproex 500 mg tablet,extended 500 mg PO BID 07/23/23 release 24 hr ferrous sulfate 324 mg (65 mg 324 mg PO DAILY 07/23/23 07/23/23 iron) tablet,delayed release folic acid 1 mg tablet 1 mg PO DAILY 07/23/2307/23 gabapentin 800 mg tablet 800 mg PO QID 07/23/2307/23 hydroxyzine HCl 25 mg tablet 25 - 50 mg PO BID PRN Anx iety 07/23/23 07/23/23 melatonin 5 mg tablet 5 mg PO BEDTIME PRN insomnia 07/23/23 07/23/23 multivitamin with folic acid 400 1 tab PO DAILY 07/23/23 mcg tablet (Daily-Damon (with folic acid)) naltrexone 50 mg tablet 50 mg PO DAILY 07/23/2307/02 nicotine (polacrilex) 2 mg gum 4 mg PO Q2H PRN nicotin e cravings 07/23/23 07/23/23 trazodone 50 mg tablet 50 - 100 mg PO BEDTIME PRN i nsomnia 07/23/23 07/23/23 Previous Rx's ?Medication ?Instructions ?Recorded nicotine 21 mg/24 hr daily 21 mg transdermal DAILY #30 ea 07/17/23 transdermal patch famotidine 20 mg tablet (Pepcid) 20 mg PO BID 7 days # 14 tabs 11/10/23 metronidazole 500 mg tablet 500 mg PO BID 7 days #13 t abs 01/09/24 nitrofurantoin macrocrystal 100 mg 100 mg PO BID 5 day s #10 caps 01/09/24 capsule fluconazole 150 mg tablet 150 mg PO Q3D 2 doses #2 tab s 01/12/24 Allergies Allergy/AdvReac Type Severity Reaction Status Date / Time SEAFOOD Allergy Unknown UNK Uncoded 06/11/25 09:33 Review of Systems 2 Review of Systems: Yes all other systems are reviewed and are negative PMFSH Past Medical History Attestation statement: The following information was validated with the patient. Source: old records reviewed and nursing notes reviewed Medical History Polysubstance use disorder Alcohol use disorder Bipolar disorder Social History Social History Household Members: Family Household Members Other:: father Housing: Unknown / Unable to assess Do you presently have visiting nurse or other home services: No Alcohol intake: former Patient Tobacco Use Status: Current everyday Tobacco user Tobacco use type: Cigarette Smoked in Last 30 Days: No e-Cigarette/Vaping Use: Former Use Second Hand Smoke Exposure: Yes Use of substances other than those prescribed or required for medical reasons: No Substance Use Type: Opiates and Other Advance Directives: No Advance Directives Information Provided: Yes Patient : No service: No Sexual orientation: Straight/Heterosexual Physical Exam ED Vital Signs: Vital Signs - 24 hr 06/11/25 09:32 06/11/25 14:09 06/11/25 15:20 Temperature 97.6 F 98.6 F Pulse Rate 105 H 95 86 Respiratory Rate 20 16 16 Blood Pressure 164/89 H 127/77 Pulse Oximetry 98 96 Oxygen Delivery Method Room Air Room Air 06/11/25 17:26 Temperature 98.7 F Pulse Rate 95 Respiratory Rate 15 Blood Pressure 122/81 Pulse Oximetry Oxygen Delivery Method Room Air BMI result Body Mass Index 24.1 hypertensive and tachycardic General: Well appearing, in no acute distress. Skin: Warm, dry, intact. No rashes or lesions. Head: Normocephalic, atraumatic. EENT: Hearing is intact b/l. Conjunctiva clear.. PERRLA. EOM intact. Moist mucous membranes.? Cardiac: Chest wall symmetric. RRR Lungs: Normal respiratory effort without accessory muscle use. CTA bilaterally Abdomen: Soft, non-tender, non-distended. No rebound tenderness or guarding. Positive BS x4. Back: No midline spinous or paraspinal tenderness. No step off deformity. Ext: Upper and lower extremities atraumatic, without tenderness, deformity, swelling or erythema Neuro: AOx3. Normal speech. CN 2-12 grossly intact. Mildly tremulous. No asterixis. No tongue fasciculations. Ambulating with steady gait. Psych: Appropriate mood and affect. Responds appropriately to questions. Course Course Course Narrative: CBC without leukocytosis or left shift. No anemia. H&H stable. Chemistry showing hypokalemia to 3.0, hypomagnesemia to 1.4. No other acute electrolyte abnormalities requiring intervention. No ALEJANDRA. Random glucose elevated to 439, no anion gap. Patient does not have a history of diabetes. This could be alcoholic ketosis however I am awaiting a urine sample from the patient. Her beta hydroxybutyrate is WNL. She has normal liver function and lipase. ?early HHS however less likely. Ethanol undetectable. EKG showing normal sinus rhythm, rate of 83 bpm, no acute ischemic changes or ST elevations. > will add on VBG. 1L IVF ordered. will re-valuate. > she has been medicated with ativan for CIWA of 1899 -- urine showing trace ketones. 6-10 squamous epithelial cells with 1+ urine bacteria, likely contamination. She does not have any urinary symptoms. Will await urine culture for treatment. Urine negative. Urine toxicology undetectable. glucose improved to 200's. no gap. asymptomatic. potassium improved with repletion. > patient was seen by nor from recovery. Patient informed recovery team that she is looking for a rehab bed/CSS. she recommended holding patient until the morning for re-evaluation with plan to send patient to [facility]. in the meantime, awaiting to see if [facility] in [place] will take her. patient initially agreeable to plan. now states that she would like to be discharged home. recovery team, trav, tells me she is cleared from their stand point as she denies SI/HI. will provide her with [facility] info for follow up. informed patient she is welcome to return at any time. she is tolerating PO. no longer symptomatic. ambulating with steady gait. she tells me her uncle will be transporting her home. Advised follow up with PCP for hypokalemia and elevated blood glucose. Patient has remained stable throughout ED visit today. Discussed worrisome signs and symptoms and when to return to the ED. All questions answered at this time. Patient is agreeable with disposition and stable for discharge. Medical Decision Making Medical Decision Making [facility] Narrative: 29 year old female with pmhx significant for alcohol use disorder, polysubstance use disorder, bipolar disorder, and anemia presents to he ED today with concern of alcohol withdrawal. On arrival, patient hypertensive and tachycardic. She is anxious appearing, tremulous. No asterixis, no tongue fasciculations. Exam otherwise benign. Ambulating with steady gait. Differential diagnosis includes ETOH intoxication, ETOH withdrawal, anemia, electrolyte abnormality, dehydration. Unlikely DT. Plan for labs, CIWA, EKG, re-evaluation. Differential Diagnosis Differential Diagnoses: The differential diagnosis associated with the presentation includes as above. Admission/Observation not indicated Lab Data [facility] Lab Attestation statement: I reviewed the patient's lab results. as above. 06/11/25 10:44 06/11/25 18:06 Labs: Lab Results 06/11/25 06/11/25 06/11/25 Range/Units 10:44 11:00 11:30 WBC 10.2 (4.8-10.8) X10*3/uL RBC 4.84 D (4.20-5.50) X10*6/uL Hgb 14.7 D (12.0-16.0) g/dl Hct 40.1 D (37.0-47.0) % MCV 82.9 (80.0-98.0) fL MCH 30.4 (27.0-33.0) pg MCHC 36.7 H (31.0-35.0) g/dl RDW 12.2 (11.0-16.0) % Plt Count 282 D (160-400) X10*3/uL MPV 10.0 (9.4-12.3) fL Immature Gran % (Auto) 0.2 (0.0-0.4) % Neut % (Auto) 56.3 (45-73) % Lymph % (Auto) 34.6 (20-40) % [place] % (Auto) 4.6 (2-11) % Eos % (Auto) 3.5 (0-4) % Baso % (Auto) 0.8 (0-2) % Lymph # (Auto) 3.5 (1.2-4.9) X10*3/uL [place] # (Auto) 0.5 (0.1-1.2) X10*3/uL Eos # (Auto) 0.4 (0.0-0.4) X10*3/uL Baso # (Auto) 0.1 (0.0-0.2) X10*3/uL Abs Immat Gran (auto) 0.02 (0.00-0.03) X10*3/uL Absolute Neuts (auto) 5.8 (2.0-8.3) x10*3/uL Absolute Nucleated RBC 0.000 (0.0-0.012) X10*3/uL Nucleated RBC % (auto) 0.0 (0.0-0.2) /100WBC VBG pH (7.32-7.43) VBG pCO2 mmHg VBG pO2 mmHg VBG HCO3 (22-26) mmol/L VBG O2 Saturation % VBG Base Excess mmol/L Sodium 135 (135-145) mmol/L Potassium 3.0 L D (3.3-5.1) mmol/L Chloride 96 (96-108) mmol/L Carbon Dioxide 28 (22-29) mmol/L Anion Gap 14 (12-20) BUN 6 L (9-16) mg/dL Creatinine 0.64 (0.5-1.4) mg/dL Estim Creat Clear Calc 111.9 Estimated GFR > 60 POC Glucose (60-115) mg/dL Random Glucose 439 H* (60-115) mg/dL Calcium 9.2 D (8.4-10.2) mg/dL Magnesium 1.4 L* (1.6-2.6) mg/dL Total Bilirubin 0.2 (0.0-1.0) mg/dL AST 17 (5-31) U/L ALT 14 (0-31) U/L Alkaline Phosphatase 104 (39-117) U/L Total Protein 7.3 (6.5-8.0) g/dL Albumin 4.5 (3.5-5.0) g/dL Lipase 12 (8-78) U/L Beta-Hydroxybutyrate 0.25 (0.02-0.27) mmol/L Urine Color Yellow Urine Appearance Clear Urine pH 7.0 (5.0-9.0) Ur Specific [place] >= 1.030 H (1.005-1.025) Urine Protein Negative (Neg-Trace) mg/dL Urine Glucose (UA) >=1000 H (Negative) mg/dL Urine Ketones Trace (Negative) mg/dL Urine Blood Small (1+) H (Negative) Urine Nitrite Negative (Negative) Ur Leukocyte Esterase Negative (Negative) Urine RBC 0-2 (0-2) /HPF Urine WBC 0-5 (0-5) /HPF Ur Squamous Epith Cells 6-10 (0-2) /HPF Urine Bacteria 1+ (None Seen) Hyaline Casts 0-2 (0-2) /LPF Urine Test NEGATIVE (NEGATIVE) Urine Opiates Screen Not Detected (Not Detect) Ur Buprenorphine Scrn Not Detected (Not Detect) ng/mL Ur Oxycodone Screen Not Detected (Not Detect) ng/mL Urine Methadone Screen Not Detected (Not Detect) ng/mL Urine Fentanyl Screen Not Detected (Not Detect) Ur Barbiturates Screen Not Detected (Not Detect) Ur Phencyclidine Scrn Not Detected (Not Detect) Ur Amphetamines Screen Not Detected (Not Detect) U Benzodiazepines Scrn Not Detected (Not Detect) Urine Cocaine Screen Not Detected (Not Detect) U Marijuana (THC) Screen Not Detected (Not Detect) Ethyl Alcohol < 10 mg/dL 06/11/25 06/11/25 06/11/25 Range/Units 13:42 15:33 16:54 WBC (4.8-10.8) X10*3/uL RBC (4.20-5.50) X10*6/uL Hgb (12.0-16.0) g/dl Hct (37.0-47.0) % MCV (80.0-98.0) fL MCH (27.0-33.0) pg MCHC (31.0-35.0) g/dl RDW (11.0-16.0) % Plt Count (160-400) X10*3/uL MPV (9.4-12.3) fL Immature Gran % (Auto) (0.0-0.4) % Neut % (Auto) (45-73) % Lymph % (Auto) (20-40) % [place] % (Auto) (2-11) % Eos % (Auto) (0-4) % Baso % (Auto) (0-2) % Lymph # (Auto) (1.2-4.9) X10*3/uL [place] # (Auto) (0.1-1.2) X10*3/uL Eos # (Auto) (0.0-0.4) X10*3/uL Baso # (Auto) (0.0-0.2) X10*3/uL Abs Immat Gran (auto) (0.00-0.03) X10*3/uL Absolute Neuts (auto) (2.0-8.3) x10*3/uL Absolute Nucleated RBC (0.0-0.012) X10*3/uL Nucleated RBC % (auto) (0.0-0.2) /100WBC VBG pH 7.48 H (7.32-7.43) VBG pCO2 38 mmHg VBG pO2 176 mmHg VBG HCO3 28 H (22-26) mmol/L VBG O2 Saturation 100.0 % VBG Base Excess 5.3 mmol/L Sodium (135-145) mmol/L Potassium (3.3-5.1) mmol/L Chloride (96-108) mmol/L Carbon Dioxide (22-29) mmol/L Anion Gap (12-20) BUN (9-16) mg/dL Creatinine (0.5-1.4) mg/dL Estim Creat Clear Calc Estimated GFR POC Glucose 325 H 271 H (60-115) mg/dL Random Glucose (60-115) mg/dL Calcium (8.4-10.2) mg/dL Magnesium (1.6-2.6) mg/dL Total Bilirubin (0.0-1.0) mg/dL AST (5-31) U/L ALT (0-31) U/L Alkaline Phosphatase (39-117) U/L Total Protein (6.5-8.0) g/dL Albumin (3.5-5.0) g/dL Lipase (8-78) U/L Beta-Hydroxybutyrate (0.02-0.27) mmol/L Urine Color Urine Appearance Urine pH (5.0-9.0) Ur Specific [place] (1.005-1.025) Urine Protein (Neg-Trace) mg/dL Urine Glucose (UA) (Negative) mg/dL Urine Ketones (Negative) mg/dL Urine Blood (Negative) Urine Nitrite (Negative) Ur Leukocyte Esterase (Negative) Urine RBC (0-2) /HPF Urine WBC (0-5) /HPF Ur Squamous Epith Cells (0-2) /HPF Urine Bacteria (None Seen) Hyaline Casts (0-2) /LPF Urine Test (NEGATIVE) Urine Opiates Screen (Not Detect) Ur Buprenorphine Scrn (Not Detect) ng/mL Ur Oxycodone Screen (Not Detect) ng/mL Urine Methadone Screen (Not Detect) ng/mL Urine Fentanyl Screen (Not Detect) Ur Barbiturates Screen (Not Detect) Ur Phencyclidine Scrn (Not Detect) Ur Amphetamines Screen (Not Detect) U Benzodiazepines Scrn (Not Detect) Urine Cocaine Screen (Not Detect) U Marijuana (THC) Screen (Not Detect) Ethyl Alcohol mg/dL 06/11/25 Range/Units 18:06 WBC (4.8-10.8) X10*3/uL RBC (4.20-5.50) X10*6/uL Hgb (12.0-16.0) g/dl Hct (37.0-47.0) % MCV (80.0-98.0) fL MCH (27.0-33.0) pg MCHC (31.0-35.0) g/dl RDW (11.0-16.0) % Plt Count (160-400) X10*3/uL MPV (9.4-12.3) fL Immature Gran % (Auto) (0.0-0.4) % Neut % (Auto) (45-73) % Lymph % (Auto) (20-40) % [place] % (Auto) (2-11) % Eos % (Auto) (0-4) % Baso % (Auto) (0-2) % Lymph # (Auto) (1.2-4.9) X10*3/uL [place] # (Auto) (0.1-1.2) X10*3/uL Eos # (Auto) (0.0-0.4) X10*3/uL Baso # (Auto) (0.0-0.2) X10*3/uL Abs Immat Gran (auto) (0.00-0.03) X10*3/uL Absolute Neuts (auto) (2.0-8.3) x10*3/uL Absolute Nucleated RBC (0.0-0.012) X10*3/uL Nucleated RBC % (auto) (0.0-0.2) /100WBC VBG pH (7.32-7.43) VBG pCO2 mmHg VBG pO2 mmHg VBG HCO3 (22-26) mmol/L VBG O2 Saturation % VBG Base Excess mmol/L Sodium 137 (135-145) mmol/L Potassium 3.8 D (3.3-5.1) mmol/L Chloride 106 (96-108) mmol/L Carbon Dioxide 25 (22-29) mmol/L Anion Gap 10 L (12-20) BUN 6 L (9-16) mg/dL Creatinine 0.66 (0.5-1.4) mg/dL Estim Creat Clear Calc 108.5 Estimated GFR > 60 POC Glucose (60-115) mg/dL Random Glucose 285 H (60-115) mg/dL Calcium 8.3 L D (8.4-10.2) mg/dL Magnesium (1.6-2.6) mg/dL Total Bilirubin (0.0-1.0) mg/dL AST (5-31) U/L ALT (0-31) U/L Alkaline Phosphatase (39-117) U/L Total Protein (6.5-8.0) g/dL Albumin (3.5-5.0) g/dL Lipase (8-78) U/L Beta-Hydroxybutyrate (0.02-0.27) mmol/L Urine Color Urine Appearance Urine pH (5.0-9.0) Ur Specific [place] (1.005-1.025) Urine Protein (Neg-Trace) mg/dL Urine Glucose (UA) (Negative) mg/dL Urine Ketones (Negative) mg/dL Urine Blood (Negative) Urine Nitrite (Negative) Ur Leukocyte Esterase (Negative) Urine RBC (0-2) /HPF Urine WBC (0-5) /HPF Ur Squamous Epith Cells (0-2) /HPF Urine Bacteria (None Seen) Hyaline Casts (0-2) /LPF Urine Test (NEGATIVE) Urine Opiates Screen (Not Detect) Ur Buprenorphine Scrn (Not Detect) ng/mL Ur Oxycodone Screen (Not Detect) ng/mL Urine Methadone Screen (Not Detect) ng/mL Urine Fentanyl Screen (Not Detect) Ur Barbiturates Screen (Not Detect) Ur Phencyclidine Scrn (Not Detect) Ur Amphetamines Screen (Not Detect) U Benzodiazepines Scrn (Not Detect) Urine Cocaine Screen (Not Detect) U Marijuana (THC) Screen (Not Detect) Ethyl Alcohol mg/dL Independent Interpretation I performed an independent interpretation of an: EKG Interpretation: ekg showing NSR without acute ischemic changes or st elevations Independent Historian Clinical information obtained from an independent historian. History obtained from or confirmed by: Parent (dad) External Record Review External record reviewed: Inpatient record Prescription Management I considered prescription management with: Other (ativan) Chronic Conditions Patient?s care impacted by: Other (etoh dependence) Social Determinants Patient?s care significantly limited by Social Determinants of Health including: Alcoholism and drug addiction in family and Other Social Determinant of Health Medications Administered Discontinued Medications Generic Name Dose Route Start Last Admin Trade Name Freq PRN Reason Stop Dose Admin Sodium Chloride 1,000 mls @ 999 mls/hr 06/11/25 10:30 06/11/25 13:34 Ns IV 06/11/25 11:30 Infused .Q1H1M KATHY Infusion Sodium Chloride 1,000 mls @ 999 mls/hr 06/11/25 12:15 06/11/25 15:26 Ns IV 06/11/25 13:15 Infused .Q1H1M KATHY Infusion Magnesium Sulfate 2 gm in 50 mls @ 150 mls/hr 06/11/25 12:15 06/11/25 14:02 Magnesium Sulfate/H2o IV 06/11/25 12:34 Infused ONCE ONE Infusion Potassium Chloride 10 meq in 100 mls @ 100 mls/hr 06/11/25 12:30 06/11/25 16:58 Potassium Chloride/H20 IV 06/11/25 14:29 Infused Q1H KATHY Infusion Lactated Ringer's 1,000 mls @ 999 mls/hr 06/11/25 14:00 06/11/25 15:58 Lr IV 06/11/25 15:00 Infused .Q1H1M KATHY Infusion Lorazepam 2 mg 06/11/25 10:05 06/11/25 10:12 Lorazepam 1 Mg Tablet PO 06/11/25 10:06 2 mg ONCE ONE Administration Lorazepam 1 mg 06/11/25 15:50 06/11/25 15:57 Lorazepam 2 Mg/Ml Vial IVPUSH 06/11/25 15:51 1 mg ONCE ONE Administration Ondansetron HCl 4 mg 06/11/25 10:05 06/11/25 10:12 Ondansetron Odt 4 Mg Tab.Rapdis TRANSLINGU 06/11/25 10:06 4 mg ONCE ONE Administration Ondansetron HCl 4 mg 06/11/25 15:50 06/11/25 15:57 Ondansetron Hcl 4 Mg/2 Ml Vial IVPUSH 06/11/25 15:51 4 mg ONCE ONE Administration Potassium Chloride 40 meq 06/11/25 12:18 06/11/25 13:32 Potassium Chloride Packet 20 Meq Packet PO 06/11/25 12:19 40 meq ONCE ONE Administration Critical Care Time Critical Care Time Critical Care Time: No Discharge Plan Discharge Clinical Impression: Alcohol withdrawal, Hyperglycemia, Hypokalemia, Hypomagnesemia Patient Disposition: Home, Self-Care Instructions: Abuse of Alcohol (ED), Hypomagnesemia (ED), Nondiabetic Hyperglycemia (ED) Additional Instructions: You were seen in the Emergency Department today for treatment of alcohol use disorder.? If you would like to cut down or stop your alcohol use please consider calling our outpatient Addiction Treatment office:? [facility] (M-F 9a-5p) [address] [place] [address] ? You have also been given a list of treatment providers in the area that can assist as well.? If you experience seizures, vomiting blood, black stools, falls, severe headache, chest pain, fevers, trouble breathing, hallucinations or any other concerns you need to call 911 or seek immediate care. Please stay hydrated. Your blood sugar was very elevated today. Your potassium and magnesium were low as well. These were repleted in ED. You need to follow up with your primary care provider. I have provided you with referrals. Call them to establish care, they will not call you. Prescriptions: No Action nicotine 21 mg/24 hr Patch 24 Hour 21 mg transdermal DAILY Qty: 30 0RF famotidine [Pepcid] 20 mg tablet 20 mg PO BID 7 Days Qty: 14 0RF trazodone 50 mg tablet 50 - 100 mg PO BEDTIME PRN (Reason: insomnia) nicotine (polacrilex) 2 mg gum 4 mg PO Q2H PRN (Reason: nicotine cravings) naltrexone 50 mg tablet 50 mg PO DAILY gabapentin 800 mg tablet 800 mg PO QID divalproex 500 mg tablet extended release 24 hr 500 mg PO BID folic acid 1 mg tablet 1 mg PO DAILY hydroxyzine HCl 25 mg tablet 25 - 50 mg PO BID PRN (Reason: Anxiety) albuterol sulfate [Ventolin HFA] 90 mcg/actuation HFA aerosol inhaler 2 puff inhalation Q4H PRN (Reason: wheezing) chlorpromazine 50 mg tablet 150 mg PO BEDTIME ferrous sulfate 324 mg (65 mg iron) tablet,delayed release (DR/EC) 324 mg PO DAILY melatonin 5 mg tablet 5 mg PO BEDTIME PRN (Reason: insomnia) multivitamin with folic acid [Daily-Damon (with folic acid)] 400 mcg tablet 1 tab PO DAILY nitrofurantoin macrocrystal 100 mg capsule 100 mg PO BID 5 Days Qty: 10 0RF Rx Instructions: must administer with a meal/food metronidazole 500 mg tablet 500 mg PO BID 7 Days Qty: 13 0RF Rx Instructions: You were given the 1st dose of this medication in the emergency department, take the next dose tomorrow morning (01/10/24). fluconazole 150 mg tablet 150 mg PO Q3D Qty: 2 0RF Referrals: Physician,None [Primary Care Provider, Medical] Print Language: Dutch
--- NOTE | 2025-06-11 09:48 | ECG_ITS ---
Test Reason : WITHDRAWL Blood Pressure : */* mmHG Vent. Rate : 83 BPM Atrial Rate : 83 BPM P-R Int : 132 ms QRS Dur : 84 ms QT Int : 402 ms P-R-T Axes : 72 67 41 degrees QTcB Int : 472 ms Poor data quality, interpretation may be adversely affected Normal sinus rhythm Possible Left atrial enlargement Borderline ECG When compared with ECG of 10-Nov-2023 09:27, No significant change was found Referred By: Carole Mejia Electronically Signed By: Markus Yen
--- OUTSIDE RECORDS SUMMARY | 2025-06-11 09:54 | XMS_ITS | Clinical Summary ---
Author Organization [facility] Address [address] [place] [address] Care Team Providers Care Entry Level Software Developer Name Role Phone Unavailable Primary Care Provider Unavailabl e Source Comments PLEASE NOTE, if this patient is a minor, it may be UNLAWFUL to discuss sensitive information that is contained in these records (such as FAMILY PLANNING, MENTAL HEALTH or SUBSTANCE ABUSE) with the minor patient's parent or other person without the patient's specific authorization.[facility] Medications gabapentin (NEURONTIN) 600 mg tablet Take 600 mg by mouth 3 (three) times daily 08/03/2023 Active divalproex (DEPAKOTE ER) 500 mg 24 hr tablet Take 1 Tablet by mouth nightly at bedtime for 30 days 30 Tablet 09/04/2023 Active hydrOXYzine HCL (ATARAX) 25 mg tablet Take 1 Tablet by mouth 3 (three) times daily as needed for anxiety for up to 30 days 90 Tablet 09/04/2023 Active naltrexone (DEPADE) 50 mg tablet Take 1 Tablet by mouth once daily for 30 days 30 Tablet 09/04/2023 Active Active Problems Problem Noted Date Diagnosed Date Bipolar I disorder ([facility]) 09/04/2023 Alcohol use disorder, severe ([facility]) 03/2023 Generalized anxiety disorder 09/04/2023 Social History Tobacco Use Types Packs/Day Years Used Date Smoking Tobacco: Never Assessed Social Connections Answer Date Recorded Connectedness 0 08/12/2024 Financial Resource Strain Answer Date R ecorded Financial Resource Strain 0 2022 Stress Answer Date Recorded Stress 0 07/10/2023 Physical Activity Answer Date Recorded Physical Activity 0 07/10/2023 Food Insecurity Answer Date Recorded Food 0 08/26/2024 Transportation Needs Answer Date Record ed Transportation 0 07/10/2023 Housing Stability Answer Date Recorded Housing 0 07/10/2023 Safety and Environment Answer Date Georgi rded Safety 0 07/10/2023 Utilities Answer Date Recorded Utilities 0 07/10/2023 Employment Answer Date Recorded Stress 0 08/12/2024 Comments Unknown Sex and Gender Information Value Date Recorded Sex Assigned at Not on file Legal Sex Female 6:57 AM PDT Gender Identity Not on file Sexual Orientation Not on file Plan of Treatment Health Maintenance Due Date Last Done Comments Anxiety Screening 1995 HPV Screening 1995 Hepatitis C Screening 1995 Pap + HPV 1995 Tobacco Screening 1995 HIV Screening 2010 Relationship Safety Screening/Counseling 2010 Hypertension Screening (#1) 2013 Imm-DTaP/Tdap/Td (1 - Tdap) 2014 Imm-Hepatitis B (1 of 3 - 19+ 3-dose series) 4 Cervical Cancer Screening 2016 Pap Smear 2016 [id number] ( season) 2024 Alcohol and Drug Screen 12/01/2024 Depression Annual Screen 12/01/2024 Imm-Influenza (#1) 2025 12/01/2021 Cervical Ablation/Cold-Knife Conization Discontinued Cervical Cryotherapy Discontinued Colposcopy Discontinued Endometrial Biopsy Discontinued Excision/Leep Discontinued HPV Genotyping Discontinued Vaginal Pap Discontinued Vulvoscopy Discontinued Insurance [place] [facility] [address] [facility]
--- OUTSIDE RECORDS SUMMARY | 2025-06-11 09:54 | XMS_ITS | Clinical Summary ---
Author Organization [facility] Address [address] [place] [address] Phone Care Team Providers Care Ventilation Equipment Tender Name Role Phone Physician, No Pcp Primary Care Provider Unavaila ble Allergies No known active allergies Medications No known medications Encounters Date Type Department Care Team Description 06/06/2025 Telephone Obstetrics [facility]necology - [facility] [address] [place], [place] [address], [place] [phone] Lashay Shanks CNM Lab Results 05/26/2025 Telephone Obstetrics [facility]cology - [facility] [address] [place], [place] [address], [place] [phone] Hien Bryson, RN 05/26/2025 Telephone Obstetrics & Gynecology - [address] [phone] Deena Marshall CNM Abnormal Bleeding 05/25/2025 Telephone Obstetrics [facility]necology - [facility] [address] [place], [place] [address], [place] [phone] Deena Marshall CNM Problem 05/24/2025 Telephone Ob[facility]etrics [facility]necology - [facility] [address] [place], [place] [address], [place] [phone] Hien Bryson, RN 05/19/2025 Telephone Obstetrics & Gynecology - [address] [phone] Deena Marshall CNM Results 05/17/2025 11:30 AM EDT Office Visit Ob[facility]s [facility] [address] [place], [place] [address], [place] [phone] Deena Marshall CNM examination or test, positive result (Primary Dx) from Last 3 Months Medical History Medical History Date Comments Alcohol abuse Social History Tobacco Use Types Packs/Day Years Used Date Smoking Tobacco: Some Days Cigarettes Smokeless Tobacco: Never Tobacco Cessation:Ready to Q uit: Not Asked; Counseling Given: Not Answered Comments:Trying to stop Alcohol Use Standard Drinks/Week Comments Not Currently 0 (1 standard drink = 0.6 oz pur e alcohol) Comments Yes Sex and Gender Information Value Date Recorded Sex Assigned at Not on file Legal Sex Female 10:45 AM EST Gender Identity Not on file Sexual Orientation Not on file Obstetrics History Para Term AB IAB SAB Ectopic Multiple Livin g Live Births 3 2 2 0 0 0 Date Outcome GA Total Labor Labor/2nd/3rd Weight Sex Type Anes PTL Nadine A1 A5 Name Clin 2014 Term F Vag-Sp ont 2015 Term 38w0 d M Vag-Sp ont Current Last Filed Vital Signs Vital Sign Reading Time Taken Comments Blood Pressure 110/66 05/17/2025 11:50 AM EDT Pulse 85 05/17/2025 11:50 AM EDT Temperature - - Respiratory Rate 18 05/17/2025 11:50 AM EDT Oxygen Saturation - - Inhaled Oxygen Concentration - - Weight 66.2 kg (146 lb) 05/17/2025 11:50 AM EDT Height 162.6 cm (5' 4 ) 05/17/2025 11:50 AM EDT Body Mass Index 25.06 05/17/2025 11:50 AM EDT Plan of Treatment Upcoming Encounters Date Type Department Care Team (Late st Contact Info) Description 07/25/2025 10:00 AM EDT Office Visit Obstetrics & Gynecology - [address] [phone] Yasmeen Navarrete, GRACIELA [address] [place] [address] Health Maintenance Due Date Last Done Comments Hepatitis A Vaccines (1 of 2 - Risk 2-dose series) 2014 Hepatitis B Vaccines (1 of 3 - 19+ 3-dose series) 2014 Pneumococcal Vaccine: Pediat rics (0 to 5 Years) and At-Risk Patients (6 to 49 Years) (1 of 2 - PCV) 2014 Cervical Cancer Screening: P ap Smear 2016 Cholesterol Screening (Lipid Panel) 11/04/2022 Depression Screening 11/04/2022 HIV Screening 11/04/2022 Hepatitis C Screening 11/04/2022 Social Influencers of Health Screening 11/04/2022 COVID-19 Vaccine (1 - 2023-2 5 season) 2024 Influenza Vaccine (#1) 2025 12/01/2021 DTaP,Tdap,and Td Vaccines (2 - Td or Tdap) 01/31/2030 02/01/2020 HIB Vaccines Aged Out No longer eligi ble based on patient's age to complete this topic HPV Vaccines Aged Out No longer eligi ble based on patient's age to complete this topic IPV Vaccines Aged Out No longer eligi ble based on patient's age to complete this topic Meningococcal ACWY Vaccine Aged Out N o longer eligible based on patient's age to complete this topic Meningococcal B Vaccine Aged Out No l onger eligible based on patient's age to complete this topic RSV Immunization Patients Un rohan 20 months Aged Out No longer eligible b ased on patient's age to complete this topic Procedures Procedure Name Priority Date/Time Associated Diagnosis Comments HCG, QUANTITATIVE Routine 06/02/2025 2:4 8 PM EDT examination or test, positive result HCG, QUANTITATIVE STAT 05/24/2025 10: 33 AM EDT examination or test, positive result HCG, QUANTITATIVE Routine 05/18/2025 10: 56 AM EDT examination or test, positive result from Last 3 Months Results * HCG, quantitative (06/02/2025 2:48 PM EDT) Only the most recent of3 resultswithin the time period is included. hCG Quant 2 mIU/mL LAB CHEMISTRY METHOD 06/02/2025 7:36 PM EDT [facility] Blood Venous blood specimen / Unknown Venipuncture / Unknown 06/02/2025 2:48 PM EDT 06/02/2025 2:48 PM EDT [facility]ative [facility] - 06/02/2025 7:36 PM EDT Quantitative HCG Reference Ranges Time after Conception MIU/ML 0.2-1 Week 5-50 1-2 Weeks 50-500 2-3 Weeks 100-5,000 3-4 Weeks 500-10,000 4-5 Weeks 1,000-50,000 5-6 Weeks 10,000-100,000 6-8 Weeks 15,000-200,000 2-3 Months 10,000-100,000 2nd Trimester 1,000-94,000 3rd Trimester 2,500-90,000 Non- Females 1-3 us Deena Marshall [facility] BLOOD ORDERABLES Final Resu lt [facility] [address] [place] [address], [place] [phone] from Last 3 Months Insurance MEDICAID - [place] Advance Directives Documents on File Type Date Recorded Patient Comber Operator Expl anation Health Care Decision (hx) 08/01/2022 AD MALIK DIRECTIVE Health Care Decision (hx) 08/01/2022 AD MALIK DIRECTIVE Health Care Decision (hx) 08/01/2022 AD MALIK DIRECTIVE Health Care Decision (hx) 08/01/2022 AD MALIK DIRECTIVE Health Care Decision (hx) 08/01/2022 AD MALIK DIRECTIVE Health Care Decision (hx) 08/01/2022 AD MALIK DIRECTIVE Health Care Decision (hx) 08/01/2022 AD MALIK DIRECTIVE Health Care Decision (hx) 08/01/2022 AD MALIK DIRECTIVE Health Care Decision (hx) 08/01/2022 AD MALIK DIRECTIVE Health Care Decision (hx) 08/01/2022 AD MALIK DIRECTIVE Health Care Decision (hx) 08/01/2022 AD MALIK DIRECTIVE Health Care Decision (hx) 08/01/2022 AD MALIK DIRECTIVE Health Care Decision (hx) 08/01/2022 AD MALIK DIRECTIVE Health Care Decision (hx) 08/01/2022 AD MALIK DIRECTIVE Health Care Decision (hx) 08/01/2022 AD MALIK DIRECTIVE Health Care Decision (hx) 08/01/2022 AD MALIK DIRECTIVE Care Teams Ventilation Equipment Tender Relationship Specialty Start Date End Date Physician, No Pcp PCP - General 05/17/25
[2025-06-11 10:48] LABS: MANUAL DIFF FLAG NO
[2025-06-11 10:49] LABS: Hematocrit 40.1 % (37.0-47.0); Hemoglobin 14.7 g/dl (12.0-16.0); Imm Gran Abs Auto 0.02 X10*3/uL (0.00-0.03); Imm Gran Pct Auto 0.2 % (0.0-0.4); Lymphocytes Absolute Auto 3.5 X10*3/uL (1.2-4.9); Mean Corpuscular HGB Conc 36.7 g/dl (31.0-35.0); Mean Corpuscular Hemoglobin 30.4 pg (27.0-33.0); Mean Corpuscular Volume 82.9 fL (80.0-98.0); NRBC Abs Auto 0.000 X10*3/uL (0.0-0.012); NRBC Pct Auto 0.0 /100WBC (0.0-0.2); Platelet Count 282 X10*3/uL (160-400); Red Blood Count 4.84 X10*6/uL (4.20-5.50); White Blood Count 10.2 X10*3/uL (4.8-10.8)
[2025-06-11 11:09] LABS: Appearance Urine Clear; Glucose Urine UA >=1000 mg/dL (Negative); PH 7.0 (5.0-9.0); Specific Gravity - Urine >= 1.030 (1.005-1.025); UMIC TRIGGER UACC YES
[2025-06-11 11:10] LABS: UPreg QC Valid YES
[2025-06-11 12:16] LABS: Alanine Aminotransferase 14 U/L (0-31); Albumin Level 4.5 g/dL (3.5-5.0); Alkaline Phosphatase 104 U/L (39-117); Anion Gap 14 (12-20); Aspartate Amino Transferase 17 U/L (5-31); Blood Urea Nitrogen 6 mg/dL (9-16); Calcium 9.2 mg/dL (8.4-10.2); Carbon Dioxide 28 mmol/L (22-29); Chloride 96 mmol/L (96-108); Creatinine Clr Calc Pharmacy 111.9; Estimated Glomerular Filt Rate > 60; Lipase 12 U/L (8-78); Magnesium 1.4 mg/dL (1.6-2.6); Potassium 3.0 mmol/L (3.3-5.1); Sodium 135 mmol/L (135-145); Total Protein 7.3 g/dL (6.5-8.0)
[2025-06-11] MEDS: Magnesium Sulfate/H2O 2 GM/50 ML PIGGYBACK IV (13:31)
[2025-06-11] MEDS: Potassium Chloride Packet 20 MEQ PACKET 40 MEQ PO (13:32)
[2025-06-11 13:47] LABS: VBG HCO3 28 mmol/L (22-26); VBG O2 % Saturation 100.0 %
[2025-06-11 13:48] LABS: Venous Blood Gas Refer to POC result
[2025-06-11 14:09] VITALS: PULSE 95; RESP 16; O2SAT 96
[2025-06-11] MEDS: Lactated Ringers 1,000 ML 999 ML IV (14:47)
[2025-06-11] MEDS: Potassium Chloride/H20 10 MEQ/100 ML PIGGYBACK 100 MEQ IV ×2 (14:47→15:58)
--- NOTE | 2025-06-11 14:49 | PC.NURSE ---
Asked to assist by primary RN to get IVF hung. Pt initially had 22G R FA with slow infusion rates & multiple orders pending x hours. US guided RN Gloria requested to bedside, placed US 20 in L AC area. Patient now has NS, LR, and 10 meQ K infusing at this time between the two points of access. Primary RN Leola updated.
[2025-06-11 15:20] VITALS: BP 127/77; PULSE 86; RESP 16; TEMP 37
[2025-06-11 15:37] LABS: Glucose, Whole Blood 325 mg/dL (60-115)
[2025-06-11] MEDS: LORazepam 2 MG/ML VIAL 1 MG IVPUSH (15:57)
--- NOTE | 2025-06-11 16:04 | PC.NURSE ---
Pt c/o burning w/ IV K infusion, IVF fluids added to relieve burning sensation.
--- NOTE | 2025-06-11 16:18 | MHC.CARE ---
T/w faxed patient packet to [facility] in [place] re: CSS. Unclear if they have beds. Patient called [facility]'s intake, and they have a wait list nearly a month long If [facility] does not have a bed, discussed with attending PA, plan for patient to remain overnight She can go by lyft to [facility] in the morning as they are likely better able to assist in her getting to a CSS.
[2025-06-11 16:22] LABS: Cannabinoid Screen Urine Not Detected (Not Detect)
[2025-06-11 16:57] LABS: Glucose, Whole Blood 271 mg/dL (60-115)
[2025-06-11 17:26] VITALS: BP 122/81; PULSE 95; RESP 15; TEMP 37.1
[2025-06-11 18:33] LABS: Anion Gap 10 (12-20); Blood Urea Nitrogen 6 mg/dL (9-16); Calcium 8.3 mg/dL (8.4-10.2); Carbon Dioxide 25 mmol/L (22-29); Chloride 106 mmol/L (96-108); Creatinine Clr Calc Pharmacy 108.5; Estimated Glomerular Filt Rate > 60; Potassium 3.8 mmol/L (3.3-5.1); Sodium 137 mmol/L (135-145)
[2025-06-11 19:10] VITALS: BP 122/81; PULSE 95; RESP 15; TEMP 37.1; O2SAT 97
== END 2025-06-11 19:15 | disposition home or self-care (01) ==
PROVIDERS: Physician Assistant Medical; Emergency Provider Emergency Medicine
DX: F10.230 Alcohol dependence with withdrawal, uncomplicated (principal); Y90.0 Blood alcohol level of less than 20 mg/100 ml; R73.9 Hyperglycemia, unspecified; E87.6 Hypokalemia; E83.42 Hypomagnesemia; R00.0 Tachycardia, unspecified; I10 Essential (primary) hypertension; F19.90 Other psychoactive substance use, unspecified, uncomplicated; F31.9 Bipolar disorder, unspecified; F43.10 Post-traumatic stress disorder, unspecified; F17.210 Nicotine dependence, cigarettes, uncomplicated; Z79.899 Other long term (current) drug therapy
CPT/HCPCS: 36415; 80048; 80053; 80307; 81001; 81025; 82010; 82803; 82947; 83690; 83735; 85025; 93005; 96361; 96365; 96366; 96367; 96375; 99285; J2060; J2405; J3475; J3480; J7120; S9485

== ENCOUNTER → 2025-06-11 09:48 | Outpatient (BNV) | payer MEDICAID, SELFPAY | PROVIDERS: Emergency Provider Emergency Medicine; Visit Provider Internal Medicine Cardiovascular Disease | DX: F19.239 Other psychoactive substance dependence with withdrawal, unspecified (principal) | CPT/HCPCS: 93010 ==

== ENCOUNTER 2025-06-20 11:20 | Inpatient (IN) | payer MEDICAID, SELFPAY ==
--- OUTSIDE RECORDS SUMMARY | 2025-06-20 01:39 | XMS_ITS | Encounter Summary ---
Author Organization [facility] Address [address] [place] [address] Care Team Providers Care Portable Sawyer Name Role Phone Physician, No Pcp Primary Care Provider Unavaila ble Reason for Visit * Reason Comments Alcohol Problem Encounter Details Date Type Department Care Team (Late st Contact Info) Description 06/20/2025 1:39 AM EDT - 06/20/2025 9:21 AM EDT Emergency [facility] Emergency [address] [place] [phone] Kasey Wilks MD [address] [place] [address] Hypokalemia (Primary Dx); Hypomagnesemia; Acute alcoholic intoxication [...] to Cut Back on Drinking: Quick List (Macedonian) * Hypokalemia (Macedonian) documented in this encounter Discharge Disposition Disposition Code Departure Means Destination Comment s Home or Self Care documented in this encounter Progress Notes * Latricia Velazco RN - 06/20/2025 7:57 AM EDT Pt placed back on front desk monitor. SR on monitor at 95bpm, resps [...] of diabetes, not taking medication x4 days. documented in this encounter Plan of Treatment Upcoming Encounters Date Type Department Care Team (Late st Contact Info) Description 07/25/2025 10:00 AM EDT Office Visit Obstetrics & Gynecology - [address] [phone] Yasmeen Navarrete, [facility] [address] [place] [address] Pending Results Name Type Priority Associated Diagnoses Date /Time ECG 12 lead ECG STAT 06/20/2025 3: 02 AM EDT documented as of this encounter Procedures Procedure Name Priority Date/Time Associated Diagnosis Comments POTASSIUM STAT 06/20/2025 8:52 AM EDT POCT [...] EDT documented in this encounter Results * (ABNORMAL) Potassium (06/20/2025 8:52 AM EDT) [facility] Potassium 3.4(L) 3.5 - 5.5 mmol/L LAB CHEMISTRY METHOD 06/20/2025 9:40 AM EDT [facility] Blood Venous blood specimen / Unknown Venipuncture / Unknown 06/20/2025 8:52 AM EDT 06/20/2025 9:16 AM EDT us Kasey Wilks MD LAB BLOOD ORDERABLES Final Res ult [facility] [address] [place] [address], [place] [phone] * (ABNORMAL) POCT Glucose, blood (06/20/2025 4:27 AM EDT) [facility] Glucose POCT 256(H) 70 - 100 mg/dL 06/20/2025 4:28 AM EDT [facility] Blood Capillary blood specimen / Unknown 06/20/2025 4:27 AM EDT 06/20/2025 4:29 AM EDT us Kasey Wilks MD LAB POINT OF CARE TE ST DOCKED DEVICE UNSOLICITED RESULTS Final Result Performing Organization Address City/[facility]/ZIP Co de Phone Number [facility] [address] [place] [address], [place] [phone] * Drug abuse screen 8a panel, urine (06/20/2025 4:23 AM EDT) Amphetamine Screen, Ur Negative Negative LAB CHEMISTRY METHOD 06/20/2025 5:12 AM [facility] Comment:Certain OTC medicati ons containing ephedrine, phenylephrine, pseudoephedrine and phenylpropanolamine can cause false positive results. Barbiturate Screen, Ur Negative Negative LAB CHEMISTRY METHOD 06/20/2025 5:12 AM [facility] Benzodiazepine Screen, Ur Negative Negative LAB CHEMISTRY METHOD 06/20/2025 5:12 AM [facility] Cocaine Screen, Ur Negative Negative LAB CHEMISTRY METHOD 06/20/2025 5:12 AM [facility] Opiate Screen, Ur Negative Negative LAB CHEMISTRY METHOD 06/20/2025 5:12 AM [facility] Cannabinoid (THC) Screen, Ur Negative Negative LAB CHEMISTRY METHOD 06/20/2025 5:12 AM [facility] Comment:Specimens from patie nts taking pantoprazole sodium (Protonix) have been shown to produce false positive results. Oxycodone Screen, Ur Negative Negative LAB CHEMISTRY METHOD 06/20/2025 5:12 AM [facility] Fentanyl, Ur Negative Negative LAB CHEMISTRY METHOD 06/20/2025 5:12 AM [facility] Urine Urine specimen obtained by clean catch procedure / Unknown Non-blood Collection / Unknown 06/20/2025 4:23 AM EDT 06/20/2025 4:28 AM EDT Narrative [facility] - 06/20/2025 5:12 AM EDT Assay [...] MD LAB URINE ORDERABLES Final Res ult [facility] [address] [place] [address], [place] [phone] * (ABNORMAL) Manual differential (06/20/2025 3:00 AM EDT) Neutrophils % 39.0 % LAB HEMETOLOGY METHOD 06/20/2025 3:58 AM EDT [facility] Lymphocytes % 49.0 % LAB HEMETOLOGY METHOD 06/20/2025 3:58 AM EDT [facility] Reactive Lymphocyte 7.00 % LAB HEMETOLOGY METHOD 06/20/2025 3:58 AM EDT [facility] Monocytes % 3.0 % LAB HEMETOLOGY METHOD 06/20/2025 3:58 AM EDT [facility] Eosinophils % 2.0 % LAB HEMETOLOGY METHOD 06/20/2025 3:58 AM EDT [facility] Basophils % 1.0 % LAB HEMETOLOGY METHOD 06/20/2025 3:58 AM EDT [facility] Neutrophils Absolute Manual 4.52 1.50 - 7.00 K/mcL LAB HEMETOLOGY METHOD 06/20/2025 3:58 AM EDT [facility] Lymphocytes Absolute 5.68(H) 1.00 - 5.00 K/mcL LAB HEMETOLOGY METHOD 06/20/2025 3:58 AM EDT [facility] Reactive Lymph Abs Manual 0.81(H) 0.00 - 0.00 lym LAB HEMETOLOGY METHOD 06/20/2025 3:58 AM EDT [facility] Monocytes Absolute Manual 0.35 0.20 - 1.00 K/mcL LAB HEMETOLOGY METHOD 06/20/2025 3:58 AM EDT [facility] Eosinophils Absolute Manual 0.23 0.00 - 0.50 K/[facility] LAB HEMETOLOGY METHOD 06/20/2025 3:58 AM EDT [facility] Basophils Absolute Manual 0.12 0.00 - 0.20 K/[facility] LAB HEMETOLOGY METHOD 06/20/2025 3:58 AM EDT [facility] Rbc Morphology Consistent with indices Consistent with indices, Normal for LAB HEMETOLOGY METHOD 06/20/2025 3:58 AM EDT [facility] Comment:RBC: Morphology agre es with CBC Platelet Morphology - WAM See Note(A) Normal [facility] 06/20/2025 3:58 AM EDT [facility] Comment:PLT: Large platelets seen Blood Venous blood specimen / Unknown Venipuncture / Unknown 06/20/2025 3:00 AM EDT 06/20/2025 3:03 AM EDT Kasey Wilks MD LAB BLOOD ORDERABLES Final Res ult [facility] [address] [place] [address], * (ABNORMAL) CBC auto differential (06/20/2025 3:00 AM EDT) WBC 11.6(H) 4.8 - 10.8 K/[facility] LAB HEMETOLOGY METHOD 06/20/2025 3:58 AM EDT [facility] RBC 4.70 3.80 - 4.80 M/[facility] LAB HEMETOLOGY METHOD 06/20/2025 3:58 AM EDT [facility] Hemoglobin 14.2 11.5 - 16.0 g/dL LAB HEMETOLOGY METHOD 06/20/2025 3:58 AM EDT [facility] Hematocrit 40.7 35.0 - 47.0 % LAB HEMETOLOGY METHOD 06/20/2025 3:58 AM EDT [facility] MCV 85.9 79.0 - 98.0 FL LAB HEMETOLOGY METHOD 06/20/2025 3:58 AM EDT [facility] MCH 30.0 27.0 - 32.0 pcg LAB HEMETOLOGY METHOD 06/20/2025 3:58 AM EDT [facility] MCHC 34.9 32.0 - 37.0 g/dL LAB HEMETOLOGY METHOD 06/20/2025 3:58 AM EDT [facility] RDW 12.2 11.0 - 15.0 % LAB HEMETOLOGY METHOD 06/20/2025 3:58 AM EDT [facility] Platelets 401(H) 130 - 400 K/mcL LAB HEMETOLOGY METHOD 06/20/2025 3:58 AM EDT [facility] MPV 9.2 7.0 - 11.0 FL LAB HEMETOLOGY METHOD 06/20/2025 3:58 AM EDT [facility] NRBC 0.0 <1.0 % LAB HEMETOLOGY METHOD 06/20/2025 3:58 AM EDT [facility] NRBC Absolute 0.00 <0.10 K/mcL LAB HEMETOLOGY METHOD 06/20/2025 3:58 AM EDT [facility] Blood Venous blood specimen / Unknown Venipuncture / Unknown 06/20/2025 3:00 AM EDT 06/20/2025 3:03 AM EDT us Kasey Wilks MD LAB BLOOD ORDERABLES Final Res ult [facility] [address] [place] [address], * (ABNORMAL) Comprehensive metabolic panel (06/20/2025 3:00 AM EDT) Sodium 140 133 - 145 mmol/L LAB CHEMISTRY METHOD 06/20/2025 4:21 AM [facility] Potassium 2.7(LL) 3.5 - 5.5 mmol/L LAB CHEMISTRY METHOD 06/20/2025 4:21 AM [facility] Chloride 99 96 - 110 mmol/L LAB CHEMISTRY METHOD 06/20/2025 4:21 AM [facility] CO2 26 21 - 32 mmol/L LAB CHEMISTRY METHOD 06/20/2025 4:21 AM [facility] Anion Gap 15(H) 3 - 11 LAB CHEMISTRY METHOD 06/20/2025 4:21 AM [facility] Glucose 307(H) 70 - 100 mg/dL LAB CHEMISTRY METHOD 06/20/2025 4:21 AM [facility] BUN 5 5 - 25 mg/dL LAB CHEMISTRY METHOD 06/20/2025 4:21 AM [facility] Creatinine 0.64 0.50 - 1.10 mg/dL LAB CHEMISTRY METHOD 06/20/2025 4:21 AM [facility] eGFR 123 >=60 mL/min/1. 73m2 LAB CHEMISTRY METHOD 06/20/2025 4:21 AM [facility] Comment:Calculation based on the Chronic Kidney Disease Epidemiology Collaboration (CKD-EPI) equation refit without adjustment for race. BUN/Creatinine Ratio 7.8 LAB CHEMISTRY METHOD 06/20/2025 4:21 AM [facility] Calcium 9.2 8.5 - 10.5 mg/dL LAB CHEMISTRY METHOD 06/20/2025 4:21 AM [facility] AST (SGOT) 17 10 - 42 unit/L LAB CHEMISTRY METHOD 06/20/2025 4:21 AM [facility] ALT (SGPT) 22 10 - 60 unit/L LAB CHEMISTRY METHOD 06/20/2025 4:21 AM [facility] Alkaline Phosphatase 125(H) 42 - 121 unit/L LAB CHEMISTRY METHOD 06/20/2025 4:21 AM EDT [facility] Total Protein 7.5 6.0 - 8.0 g/dL LAB CHEMISTRY METHOD 06/20/2025 4:21 AM EDT [facility] Albumin 3.9 3.2 - 5.0 g/dL LAB CHEMISTRY METHOD 06/20/2025 4:21 AM EDT [facility] Total Bilirubin 0.2 0.0 - 1.4 mg/dL LAB CHEMISTRY METHOD 06/20/2025 4:21 AM EDT [facility] Blood Venous blood specimen / Unknown Venipuncture / Unknown 06/20/2025 3:00 AM EDT 06/20/2025 3:03 AM EDT Kasey Wilks MD LAB BLOOD ORDERABLES Final Res ult Performing Organization Address [facility]/ZIP Co de Phone Number [facility] [address] [place] [address], [place] [phone] * (ABNORMAL) Lipase (06/20/2025 3:00 AM EDT) Lipase 10(L) 13 - 75 unit/L LAB CHEMISTRY METHOD 06/20/2025 3:30 AM EDT [facility] Blood Venous blood specimen / Unknown Venipuncture / Unknown 06/20/2025 3:00 AM EDT 06/20/2025 3:03 AM EDT us Kasey Wilks MD LAB BLOOD ORDERABLES Final Res ult Performing Organization Address City/[facility]/ZIP Co de Phone Number [facility] [address] [place] [address], [place] [phone] * (ABNORMAL) Magnesium (06/20/2025 3:00 AM EDT) Magnesium 1.8(L) 1.9 - 2.6 mg/dL LAB CHEMISTRY METHOD 06/20/2025 3:30 AM EDT [facility] Blood Venous blood specimen / Unknown Venipuncture / Unknown 06/20/2025 3:00 AM EDT 06/20/2025 3:03 AM EDT Kasey Wilks MD LAB BLOOD ORDERABLES Final Res ult Performing Organization Address [facility]/ZIP Co de Phone Number [facility] [address] [place] [address], [place] [phone] * (ABNORMAL) Ethanol (06/20/2025 3:00 AM EDT) Ethanol Level 307(H) 0 - 10 mg/dL LAB CHEMISTRY METHOD 06/20/2025 4:00 AM EDT [facility] Blood Venous blood specimen / Unknown Venipuncture / Unknown 06/20/2025 3:00 AM EDT 06/20/2025 3:03 AM EDT us Kasey Wilks MD LAB BLOOD ORDERABLES Final Res ult Performing Organization Address [facility] de Phone Number [facility] [address] [place] [address], [place] [phone] * (ABNORMAL) POCT Glucose, blood (06/20/2025 2:58 AM EDT) Glucose POCT 304(H) 70 - 100 mg/dL 06/20/2025 2:58 AM EDT [facility] Blood Capillary blood specimen / Unknown 06/20/2025 2:58 AM EDT 06/20/2025 2:59 AM EDT us Kaesy Wilks MD LAB POINT OF CARE TE ST DOCKED DEVICE UNSOLICITED RESULTS Final Result Performing Organization Address City/[facility]/ZIP Co de Phone Number [facility] [address] [place] [address], documented in this encounter Visit Diagnoses Diagnosis Hypokalemia- Primary Hypopotassemia Hypomagnesemia Disorders of magnesium metabolism Acute alcoholic intoxication without complication (CMS/[facility] V24) Generalized abdominal pain Abdominal pain, generalized [...] 180.51 mg = 3.3 mg/kg 54.7 kg [place] weight), intramuscular, Every 3 hours, First dose [...] On Fri06/20/25 at 0611, For 1 dose 06 (Given - Provid er: Erika Cee RN) PHENobarbital injection 130 mg (COMPLETED) 130 mg, intravenous, Once, On Fri06/20/25 at 0611, For 1 dose, Administer no faster than 1 mg/kg/minute, to a max of 60 mg/min in adults. 06 (Given - Provid er: Erika Cee RN) PHENobarbital injection 180.7 mg (CANCELED) 180.7 mg (rounded from 180.51 mg = 3.3 mg/kg 54.7 kg [place] weight), intramuscular, Every 3 hours, First dose on Fri06/20/25 at 0731, For 3 doses 0742 (Given - Provid er: Latricia Velazco RN) potassium chloride (KLOR-CON M20) CR tablet 40 [...] Erika Cee RN)0813 (Stopped - Provider: Latricia Velazco RN)0823 (Not Given - Provider: Latricia Velazco RN - Reason: See Provider Order - Comment: provider discontinued order) sodium chloride 0.9 % bolus 1,000 mL (COMPLETED) 1,000 mL, intravenous, at 1,000 mL/hr, Administer over 1 Hours, Once, On Fri06/20/25 at 0544, For 1 dose 0628 (New Bag - Prov ider: Erika Cee RN)0921 (Stopped - Provider: Latricia Velazco, DILIP) documented in this encounter Orders Medications Ordered That Cristofer ht Not Have Been Administered Count Last Ordered Date First Ordered Date PHENobarbital injection 130 mg 1 06/20/2025 documented in this encounter Care Teams Portable Sawyer Relationship Specialty Start Date End Date Physician, No Pcp PCP - General 05/17/25 documented as of this encounter
[2025-06-20 11:25] VITALS: BP 120/78; BP 134/76; PULSE 90; PULSE 96; RESP 16; TEMP 37; O2SAT 98; BMI 25.7
--- NOTE | 2025-06-20 11:43 | ED.ALCOHOL ---
HPI - Alcohol General Chief Complaint: ETOH/Substance Use Stated Complaint: PT/FAM WANT DETOX,ETOH USE PER EMS Time Seen by Provider: 06/20/25 11:33 Mode of arrival: EMS History of Present Illness HPI narrative: This is a 29 years old with a history of alcoholism presented by EMS requesting detox she was sober for 2 years and now she is sober Last drink: Days (ago) (1) Chronic alcohol use: Yes Previous visits for alcohol intoxication: Yes Recent trauma: No Associated symptoms: denies other symptoms Treatments prior to arrival: none Related Data Home Medications ?Medication ?Instructions ?Recorded ?Confirmed gabapentin 800 mg tablet 800 mg PO TID 07/23/23 06/20/25 multivitamin with folic acid 400 1 tab PO DAILY 07/23/23 06/20/25 mcg tablet (Daily-Damon (with folic acid)) clonidine HCl 0.1 mg tablet 0.1 mg PO TID 06/20/25 06/20/25 hydroxyzine pamoate 100 mg capsule 100 mg PO Q8H PRN Anxiety 06/20/25 06/20/25 melatonin 5 mg tablet 20 mg PO BEDTIME 06/20/25 06/20/25 oxcarbazepine 600 mg tablet 600 mg PO BID 06/20/25 06/20/25 (Trileptal) Allergies Allergy/AdvReac Type Severity Reaction Status Date / Time SEAFOOD Allergy Unknown UNK Uncoded 06/20/25 11:31 COUNT INCLUDES THE [facility] Past Medical History COUNT INCLUDES THE [facility] Narrative: Alcohol abuse Medical History Polysubstance use disorder Alcohol use disorder Bipolar disorder Social History Social History Household Members: Family Household Members Other:: father Housing: Unknown / Unable to assess Do you presently have visiting nurse or other home services: No Alcohol intake: current Alcohol intake frequency: other Alcohol type: hard liquor Patient Tobacco Use Status: Current everyday Tobacco user Tobacco use type: Cigarette e-Cigarette/Vaping Use: Former Use Second Hand Smoke Exposure: Yes Substance Use Type: Opiates and Other service: No Sexual orientation: Straight/Heterosexual Physical Exam ED Exam Exam: No acute distress Vital Signs: Vital Signs - 24 hr 06/20/25 16:28 Temperature 98.3 F Pulse Rate 87 Respiratory Rate 12 Blood Pressure 142/89 H Pulse Oximetry 96 Oxygen Delivery Method Room Air BMI result Body Mass Index 25.7 Const General: cooperative Nutritional Appearance: well nourished Orientation/consciousness: oriented to person and patient oriented x3 Limitations: no limitations HENMT Head: Yes normal to inspection Ears: hearing grossly normal bilaterally Face and sinus: Yes normal facial exam Mouth: Normal oral and palatal mucosa present Neck Neck: Yes normal visual inspection Chest Chest palpation & inspection: normal inspection of the chest Resp Effort & Inspection: normal respiratory effort Cardio Jugular venous distension: no JVD Palpation: normal PMI Rate: regular rate Rhythm: regular rhythm GI Inspection: Yes normal to inspection Palpation (GI): Soft to palpation, not firm and nontender Percussion: Yes normal to percussion Auscultation: normal bowel sounds Skin General skin exam: no rashes or lesions noted Lesions: no lesions Rashes: no rashes Neuro General: oriented to person and patient oriented x3 Course Reevaluation(s) Reevaluation #1: Patient is very restless she got 5 mg of diazepam IV then she got another 5 mg of the diazepam we will start an now on phenobarbital protocol we will admit she is also as hypokalemia and anion gap acidosis discussed with hospitalist Dr. Garcia Time: 16:49 Medical Decision Making Medical Decision Making [facility] Narrative: Patient is here requesting alcohol detox she has a history of bipolar disorder will consult crisis, we will administer IV benzo for the alcohol withdrawal Differential Diagnosis Differential Diagnoses: The differential diagnosis associated with the presentation includes Alcohol abuse/alcohol withdrawal/depression Admission/Observation Consideration of admission/observation: Escalation of care including admission/observation considered Lab Data [facility] Lab Attestation statement: I reviewed the patient's lab results. 06/21/25 05:23 06/21/25 05:23 Labs: Lab Results 06/20/25 06/20/25 06/20/25 Range/Units 12:34 15:03 15:17 WBC 10.6 (4.8-10.8) X10*3/uL RBC 4.77 (4.20-5.50) X10*6/uL Hgb 14.6 (12.0-16.0) g/dl Hct 41.3 (37.0-47.0) % MCV 86.6 (80.0-98.0) fL MCH 30.6 (27.0-33.0) pg MCHC 35.4 H (31.0-35.0) g/dl RDW 12.4 (11.0-16.0) % Plt Count 342 (160-400) X10*3/uL MPV 9.3 L (9.4-12.3) fL Immature Gran % (Auto) 0.4 (0.0-0.4) % Neut % (Auto) 67.5 (45-73) % Lymph % (Auto) 25.9 (20-40) % [place] % (Auto) 3.5 (2-11) % Eos % (Auto) 2.0 (0-4) % Baso % (Auto) 0.7 (0-2) % Lymph # (Auto) 2.7 (1.2-4.9) X10*3/uL [place] # (Auto) 0.4 (0.1-1.2) X10*3/uL Eos # (Auto) 0.2 (0.0-0.4) X10*3/uL Baso # (Auto) 0.1 (0.0-0.2) X10*3/uL Abs Immat Gran (auto) 0.04 H (0.00-0.03) X10*3/uL Absolute Neuts (auto) 7.1 (2.0-8.3) x10*3/uL Absolute Nucleated RBC 0.000 (0.0-0.012) X10*3/uL Nucleated RBC % (auto) 0.0 (0.0-0.2) /100WBC Sodium 141 (135-145) mmol/L Potassium 3.2 L (3.3-5.1) mmol/L Chloride 100 (96-108) mmol/L Carbon Dioxide 22 (22-29) mmol/L Anion Gap 22 H (12-20) BUN 5 L (9-16) mg/dL Creatinine 0.66 (0.5-1.4) mg/dL Estim Creat Clear Calc 119.2 Estimated GFR > 60 POC Glucose 254 H (60-115) mg/dL Random Glucose 390 H* (60-115) mg/dL Calcium 8.8 D (8.4-10.2) mg/dL Magnesium 2.0 (1.6-2.6) mg/dL Total Bilirubin 0.3 (0.0-1.0) mg/dL AST 41 H (5-31) U/L ALT 26 (0-31) U/L Alkaline Phosphatase 127 H (39-117) U/L Total Protein 8.1 H (6.5-8.0) g/dL Albumin 5.0 (3.5-5.0) g/dL Lipase 6 L (8-78) U/L Beta HCG, Quant < 2 mIU/mL Urine Opiates Screen Not Detected (Not Detect) Ur Buprenorphine Scrn Not Detected (Not Detect) ng/mL Ur Oxycodone Screen Not Detected (Not Detect) ng/mL Urine Methadone Screen Not Detected (Not Detect) ng/mL Urine Fentanyl Screen Not Detected (Not Detect) Ur Barbiturates Screen POSITIVE H (Not Detect) Ur Phencyclidine Scrn Not Detected (Not Detect) Ur Amphetamines Screen Not Detected (Not Detect) U Benzodiazepines Scrn Not Detected (Not Detect) Urine Cocaine Screen Not Detected (Not Detect) U Marijuana (THC) Screen Not Detected (Not Detect) Ethyl Alcohol 304 H* mg/dL External Record Review External record reviewed: Inpatient record Medications Administered Generic Name Dose Route Start Last Admin Trade Name Freq PRN Reason Stop Dose Admin Clonidine HCl 0.1 mg 06/20/25 21:00 06/21/25 14:50 Clonidine Hcl 0.1 Mg Tablet PO 0.1 mg TID KATHY Administration Protocol Diazepam 10 mg 06/20/25 17:23 06/21/25 07:22 Diazepam 10 Mg/2 Ml Cartridge IVPUSH 10 mg Q6H PRN Administration Alcohol Withdrawal Enoxaparin Sodium 40 mg 06/21/25 09:00 06/21/25 09:51 Enoxaparin Sodium 40 Mg/0.4 Ml Syringe SUBCUT 40 mg Q24H KATHY Administration Gabapentin 800 mg 06/20/25 21:00 06/21/25 14:50 Gabapentin 400 Mg Capsule PO 800 mg TID KATHY Administration Hydroxyzine HCl 100 mg 06/20/25 18:31 06/21/25 07:22 Hydroxyzine Hcl 50 Mg Tablet PO 100 mg Q8H PRN Administration Anxiety Thiamine HCl 100 mg/ Sodium 101 mls @ 202 mls/hr 06/20/25 17:25 06/21/25 11:34 Chloride IV Not Given DAILY KATHY Folic Acid 1 mg/ Sodium 50.2 mls @ 100.4 mls/hr 06/21/25 09:00 06/21/25 11:34 Chloride IV Not Given DAILY KATHY Potassium Chloride/Sodium Chloride 40 meq in 1,000 mls @ 100 mls/hr 06/21/25 08:00 06/21/25 11:33 Kcl 40 Meq In 0.9 % Sodium Chl IVCONT Not Given .Q10H KATHY Multivitamins/Vitamin C 1 tab 06/21/25 09:00 06/21/25 09:55 Multivitamin Tablet PO 1 tab DAILY KATHY Administration Pantoprazole Sodium 40 mg 06/20/25 17:45 06/21/25 05:48 Pantoprazole Sodium 40 Mg/10 Ml Vial IVPUSH 40 mg DAILY@0630 KATHY Administration Phenobarbital 45 mg 06/21/25 09:00 06/21/25 09:52 Phenobarbital 15 Mg Tablet PO 06/22/25 21:01 45 mg BID KATHY Administration Prochlorperazine Edisylate 5 mg 06/20/25 17:57 06/20/25 19:11 Prochlorperazine Edisylate 10 Mg/2 Ml Vial IV 5 mg Q4H PRN Administration Nausea and Vomiting Sodium Chloride 3 ml 06/21/25 00:00 06/21/25 14:50 0.9 % Sodium Chloride Flush 3 Ml Syringe IVFLUSH 3 ml QSHIFT KATHY Administration Discontinued Medications Generic Name Dose Route Start Last Admin Trade Name Freq PRN Reason Stop Dose Admin Diazepam 5 mg 06/20/25 15:37 06/20/25 15:48 Diazepam 10 Mg/2 Ml Cartridge IVPUSH 06/20/25 15:38 5 mg STAT STA Administration Diazepam 5 mg 06/20/25 16:38 06/20/25 16:51 Diazepam 10 Mg/2 Ml Cartridge IVPUSH 06/20/25 16:39 5 mg STAT STA Administration Diazepam 12.5 mg 06/20/25 19:30 06/20/25 19:54 Diazepam 10 Mg/2 Ml Cartridge IVPUSH 06/20/25 19:31 12.5 mg STAT STA Administration Diazepam 10 mg 06/21/25 09:14 06/21/25 09:23 Diazepam 10 Mg/2 Ml Cartridge IVPUSH 06/21/25 09:15 10 mg STAT STA Administration Gabapentin 600 mg 06/20/25 19:31 06/20/25 19:46 Gabapentin 600 Mg Tablet PO 06/20/25 19:32 600 mg STAT STA Administration Hydroxyzine HCl 50 mg 06/20/25 19:31 06/20/25 19:46 Hydroxyzine Hcl 50 Mg Tablet PO 06/20/25 19:32 50 mg ONCE STA Administration Lactated Ringer's 1,000 mls @ 999 mls/hr 06/20/25 13:15 06/20/25 14:56 Lr IV 06/20/25 14:15 Infused .Q1H1M KATHY Infusion Lactated Ringer's 1,000 mls @ 999 mls/hr 06/20/25 16:15 06/20/25 17:22 Lr IV 06/20/25 17:15 Infused .Q1H1M KATHY Infusion Lactated Ringer's 1,000 mls @ 150 mls/hr 06/20/25 17:45 06/21/25 08:00 Lr IVCONT Infused .Q6H40M KATHY Infusion Magnesium Sulfate 2 gm in 50 mls @ 25 mls/hr 06/20/25 22:39 06/21/25 00:55 Magnesium Sulfate/H2o IV 06/21/25 00:38 Infused ONCE ONE Infusion Ondansetron HCl 4 mg 06/20/25 15:37 06/20/25 15:44 Ondansetron Hcl 4 Mg/2 Ml Vial IVPUSH 06/20/25 15:38 4 mg ONCE ONE Administration Phenobarbital Sodium 219 mg 06/20/25 18:00 06/20/25 17:38 Phenobarbital Sodium 130 Mg/Ml Im Once IM 06/20/25 18:01 219 mg ONCE@1800 KATHY Administration Phenobarbital Sodium 164 mg 06/20/25 21:00 06/21/25 01:43 Phenobarbital Sodium 130 Mg/Ml Vial Im Q3hx2 IM 06/21/25 00:01 Not Given 0000,2100 KATHY Phenobarbital Sodium 130 mg 06/21/25 08:49 06/21/25 09:23 Phenobarbital Sodium 130 Mg/Ml Vial IM 06/21/25 08:50 130 mg ONCE ONE Administration Potassium Chloride 20 meq 06/20/25 15:37 06/20/25 16:12 Potassium Chloride Er 20 Meq Tab.Er.Prt PO 06/20/25 15:38 20 meq ONCE ONE Administration Potassium Chloride 40 meq 06/21/25 07:54 06/21/25 09:50 Potassium Chloride Er 20 Meq Tab.Er.Prt PO 06/21/25 07:55 40 meq ONCE ONE Administration Procedures EJ/Peripheral Line Arm R: Time Out Performed: Yes Skin Cleansed in Sterile Fashion: Yes Size (gauge): 20 IV Secured and Dressing Applied: Yes Patient Tolerated Procedure: well Additional Comments: ASKED BY RN TO ESTABLISH ACCESS,UNDER US GUIDED CANNULATED RT BRACHIAL VEIN WITH 20 G LONG CATHETER Critical Care Time Critical Care Time Critical Care Time: Yes Total Critical Care Time: 60 Attestation: IV diazepam ,Phenobarbital Discharge Plan Discharge Clinical Impression: Acute hypokalemia, Hyperglycemia Alcohol withdrawal Qualifiers: Complication of substance-induced condition: uncomplicated Qualified Code(s): F10.930 - Alcohol use, unspecified with withdrawal, uncomplicated Patient Disposition: Admitted As Inpatient Interventions: Admission Worksheet (ED) Last Done: 06/21/25 07:11 Discharge Date/Time: 06/21/25 08:39
--- NOTE | 2025-06-20 11:46 | PC.NURSE ---
pt is looking for help with ETOH detox. she has been drinking this morning. relapsed about 2 months ago. sleepy and will not elaborate. denies SI/HI changed into hospital attire, belongings checked and remain at bedside.
[2025-06-20 12:11] VITALS: BP 133/87; PULSE 103; RESP 18; O2SAT 100
[2025-06-20 12:42] LABS: MANUAL DIFF FLAG NO
[2025-06-20 12:46] LABS: Hematocrit 41.3 % (37.0-47.0); Hemoglobin 14.6 g/dl (12.0-16.0); Imm Gran Abs Auto 0.04 X10*3/uL (0.00-0.03); Imm Gran Pct Auto 0.4 % (0.0-0.4); Lymphocytes Absolute Auto 2.7 X10*3/uL (1.2-4.9); Mean Corpuscular HGB Conc 35.4 g/dl (31.0-35.0); Mean Corpuscular Hemoglobin 30.6 pg (27.0-33.0); Mean Corpuscular Volume 86.6 fL (80.0-98.0); NRBC Abs Auto 0.000 X10*3/uL (0.0-0.012); NRBC Pct Auto 0.0 /100WBC (0.0-0.2); Platelet Count 342 X10*3/uL (160-400); Red Blood Count 4.77 X10*6/uL (4.20-5.50); White Blood Count 10.6 X10*3/uL (4.8-10.8)
--- OUTSIDE RECORDS SUMMARY | 2025-06-20 12:48 | XMS_ITS | Clinical Summary ---
Author Organization [facility] Address [address] [place] [address] Care Team Providers Care Newspaper Carrier Name Role Phone Unavailable Primary Care Provider [...] Noted Date Diagnosed Date Bipolar I disorder ([facility]) 09/04/2023 Alcohol use disorder, severe ([facility]) 03/2023 Generalized anxiety disorder 09/04/2023 Social History [...] Cervical Cancer Screening 2016 Pap Smear 2016 [id number] ( season) 2024 Alcohol and Drug Screen 12/01/2024 Depression Annual Screen 12/01/2024 Imm-Influenza (#1) 2025 12/01/2021 Cervical Ablation/Cold-Knife Conization Discontinued Cervical Cryotherapy Discontinued Colposcopy Discontinued Endometrial Biopsy Discontinued Excision/Leep Discontinued HPV Genotyping Discontinued Vaginal Pap Discontinued Vulvoscopy Discontinued Insurance [place] [facility] [facility] [address] [employer]
[2025-06-20 13:03] LABS: Alanine Aminotransferase 26 U/L (0-31); Albumin Level 5.0 g/dL (3.5-5.0); Alkaline Phosphatase 127 U/L (39-117); Anion Gap 22 (12-20); Aspartate Amino Transferase 41 U/L (5-31); Blood Urea Nitrogen 5 mg/dL (9-16); Calcium 8.8 mg/dL (8.4-10.2); Carbon Dioxide 22 mmol/L (22-29); Chloride 100 mmol/L (96-108); Creatinine Clr Calc Pharmacy 119.2; Estimated Glomerular Filt Rate > 60; Potassium 3.2 mmol/L (3.3-5.1); Sodium 141 mmol/L (135-145); Total Protein 8.1 g/dL (6.5-8.0)
[2025-06-20] MEDS: Lactated Ringers 1,000 ML 999 ML IV ×2 (13:19→16:14)
[2025-06-20 14:03] VITALS: BP 122/85; PULSE 84; RESP 19; TEMP 36.6; O2SAT 97
[2025-06-20 15:06] LABS: Glucose, Whole Blood 254 mg/dL (60-115)
[2025-06-20 15:32] LABS: Cannabinoid Screen Urine Not Detected (Not Detect)
[2025-06-20] MEDS: diazePAM 10 MG/2 ML CARTRIDGE 5 MG IVPUSH ×2 (15:48→16:51)
--- NOTE | 2025-06-20 15:50 | PC.NURSE ---
pt took a nap after arrival to ED> she is now awake, reporting abd pain, nausea, ENCARNACION, and generally not feeling well. RAN Bonds -MD aware. IV diazepam and zofran given. Potassium held until pt is better able to tolerate.
[2025-06-20] MEDS: Potassium Chloride ER 20 MEQ TAB.ER.PRT PO (16:12)
[2025-06-20 16:28] VITALS: BP 142/89; PULSE 87; RESP 12; TEMP 36.8; O2SAT 96
--- NOTE | 2025-06-20 16:55 | PC.NURSE ---
pt crying, irritable, upset. She is asking for more valium. states she doesn't feel well. Dr. Peterson was notified, medicated per orders.
[2025-06-20 17:02] LABS: Magnesium 2.0 mg/dL (1.6-2.6)
--- NOTE | 2025-06-20 17:13 | PC.NURSE ---
pt declares that she is SI when speaking to hospitalist. She denies SI on arrival. Hospitalist writing Sec 12
--- NOTE | 2025-06-20 17:25 | P.HPHOSP_ITS ---
History of Present Illness Date of Service: 06/20/25 Attending physician on admission: Abdirahman Banks Chief Complaint: Looking for detox help from alcohol Ibeth Sommers is a 29 years old woman with past medical history significant for bipolar disorder and alcohol abuse presents to the emergency department came for detox out from alcohol. She has been sober for 2 years was started to bring over the last 2 months. She drinks a L of vodka everyday and last drink was yesterday. She also smokes marijuana. During the interview she was inconsolable as she broke up with her partner. She also mentioned that her daughter was taken from her by the government. She does complain of GI symptoms such as nausea, vomiting and abdominal pain. She also complained of headaches and tremulousness. Denied diarrhea. She is actively suicide and has a plan: Gunshot to the head. She has a fire alarm at home. Denied any recent suicide attempt (last she attempted to kill herself was 2 years ago. She did not complain any acute cardiopulmonary symptoms. The patient has not been taking her psych medications. In the ED, she was found to have stable vital signs. Blood workup showed no leukocytosis. Hemoglobin and platelets are normal. There is hypokalemia of 3.2. There are no other significant electrolyte imbalances. CO2 Creatinine 0.66 and BUN 5. His glucose was found to be 390. LFTs are remarkable for elevated AST and alk-phos. test is negative. ED tx: LR 2 L bolus, Zofran 4 mg IV, diazepam 10 mg IV, potassium chloride 20 mEq p.o. Review of Systems 2 Review of Systems: All 12 systems were reviewed and normal except as noted in HPI. [facility] Medical History Polysubstance use disorder Alcohol use disorder Bipolar disorder Social History Household Members: Family Household Members Other:: father Housing: Unknown / Unable to assess Do you presently have visiting nurse or other home services: No Alcohol intake: current Alcohol intake frequency: other Alcohol type: hard liquor Patient Tobacco Use Status: Current everyday Tobacco user Tobacco use type: Cigarette Smoked in Last 30 Days: No e-Cigarette/Vaping Use: Former Use Second Hand Smoke Exposure: Yes Substance Use Type: Opiates and Other Advance Directives: No Advance Directives Information Provided: Yes Nutrition Risks: No Nutritional Risk service: No Sexual orientation: Straight/Heterosexual Meds Allergies Allergy/AdvReac Type Severity Reaction Status Date / Time SEAFOOD Allergy Unknown UNK Uncoded 06/20/25 11:31 Active Medications: Current Medications Acetaminophen (Acetaminophen 325 Mg Tablet) 650 mg PO Q6H PRN PRN Reason: Pain, Mild 1-3,fever,headache Calcium Carbonate (Calcium Carbonate 750 Mg Tab.Chew) 750 mg PO Q4H PRN PRN Reason: Heartburn Diazepam (Diazepam 10 Mg/2 Ml Cartridge) 10 mg IVPUSH Q6H PRN PRN Reason: Alcohol Withdrawal Enoxaparin Sodium (Enoxaparin Sodium 40 Mg/0.4 Ml Syringe) 40 mg SUBCUT Q24H [facility] Thiamine HCl 100 mg/ Sodium (Chloride) 101 mls @ 202 mls/hr IV DAILY [facility] Folic Acid 1 mg/ Sodium (Chloride) 50.2 mls @ 100.4 mls/hr IV DAILY [facility] Magnesium Hydroxide (Milk Of Magnesia 30 Ml Oral.Susp) 30 ml PO DAILY PRN PRN Reason: Constipation Melatonin (Melatonin 3 Mg Tablet) 6 mg PO BEDTIME PRN PRN Reason: Insomnia Multivitamins/Vitamin C (Multivitamin Tablet) 1 tab PO DAILY [facility] Pharmacy Consult (Consult Rx Etoh Phenob Im/Po) 1 each MISCELLANE ONCE PRN; Protocol PRN Reason: Consult order Phenobarbital (Phenobarbital 15 Mg Tablet) 45 mg PO BID [facility] Stop: 06/22/25 21:01 Phenobarbital (Phenobarbital 15 Mg Tablet) 15 mg PO BID [facility] Stop: 06/24/25 21:01 Phenobarbital (Phenobarbital 15 Mg Tablet) 15 mg PO DAILY [facility] Stop: 06/26/25 09:01 Phenobarbital Sodium (Phenobarbital Sodium 130 Mg/Ml Im Once) 219 mg IM ONCE@1800 [facility] Stop: 06/20/25 18:01 Last Admin: 06/20/25 17:20 Dose: 219 mg Phenobarbital Sodium (Phenobarbital Sodium 130 Mg/Ml Vial Im Q3hx2) 164 mg IM 0000,2100 [facility] Stop: 06/21/25 00:01 Sodium Chloride (0.9 % Sodium Chloride Flush 3 Ml Syringe) 3 ml IVFLUSH QSHIFT [facility] Home Medications ?Medication ?Instructions ?Recorded ?Confirmed ?Last Taken ?Type gabapentin 800 mg tablet 800 mg PO TID 07/23/2306/20 Unknown History multivitamin with folic acid 400 1 tab PO DAILY 06/20/25 Unknown History mcg tablet (Daily-Damon (with folic acid)) clonidine HCl 0.1 mg tablet 0.1 mg PO TID 06/20/25 Unknown History hydroxyzine pamoate 100 mg capsule 100 mg PO Q8H PRN A nxiety 06/20/25 06/20/25 Unknown History melatonin 5 mg tablet 20 mg PO BEDTIME 06/20/25 Unknown History oxcarbazepine 600 mg tablet 600 mg PO BID 06/20/25 Unknown History (Trileptal) Physical Exam 2 Vital Signs and Narrative: Vital Signs: Last Vital Signs Temp 98.3 F 06/20/25 16:28 Pulse 87 06/20/25 16:28 Resp 12 06/20/25 16:28 BP 142/89 H 06/20/25 16:28 Pulse Ox 96 06/20/25 16:28 O2 Del Method Room Air 06/20/25 16:28 BMI result Body Mass Index 25.7 Constitutional - Awake and Alert, No apparent distress HEENT - PER, EOMI. Dry oral mucosa. Normal sclerae. Heart - S1S2, RRR, No murmurs Lungs - Normal lung expansion, Normal respiratory effort, No respiratory distress, CTA bilaterally Abdomen - nondistended, epigastric tenderness without guarding or rebound. Increased bowel sounds. Extremities - no calf tenderness bilaterally, no swelling Musculoskeletal - Normal inspection, normal ROM Skin - Warm/Dry. No jaundice. No pallor. Neurological - Alert & oriented x3, CN III-XII intact, 5/5 strength BUE and BLE Psychological - Depressed affect Results Labs 06/20/25 12:34 06/20/25 12:34 Labs: Laboratory Results - last 24 hr 06/20/25 06/20/25 06/20/25 12:34 15:03 15:17 MCV 86.6 MCH 30.6 MCHC 35.4 H RDW 12.4 Plt Count 342 MPV 9.3 L Immature Gran % (Auto) 0.4 Neut % (Auto) 67.5 Lymph % (Auto) 25.9 [place] % (Auto) 3.5 Eos % (Auto) 2.0 Baso % (Auto) 0.7 Lymph # (Auto) 2.7 [place] # (Auto) 0.4 Eos # (Auto) 0.2 Baso # (Auto) 0.1 Abs Immat Gran (auto) 0.04 H Absolute Neuts (auto) 7.1 Absolute Nucleated RBC 0.000 Nucleated RBC % (auto) 0.0 Anion Gap 22 H Estim Creat Clear Calc 119.2 Estimated GFR > 60 POC Glucose 254 H Random Glucose 390 H* Calcium 8.8 D Magnesium 2.0 Total Bilirubin 0.3 AST 41 H ALT 26 Alkaline Phosphatase 127 H Total Protein 8.1 H Albumin 5.0 Beta HCG, Quant < 2 Urine Opiates Screen Not Detected Ur Buprenorphine Scrn Not Detected Ur Oxycodone Screen Not Detected Urine Methadone Screen Not Detected Urine Fentanyl Screen Not Detected Ur Barbiturates Screen POSITIVE H Ur Phencyclidine Scrn Not Detected Ur Amphetamines Screen Not Detected U Benzodiazepines Scrn Not Detected Urine Cocaine Screen Not Detected U Marijuana (THC) Screen Not Detected Ethyl Alcohol 304 H* Assessment and Plan (1) Alcohol use disorder: Status: Acute (2) Acute hypokalemia: Status: Acute Plan Ibeth Sommers is a 29 y/o woman admitted with: Alcohol withdrawal syndrome. Admit to hospitalist service. Telemetry. Continue phenobarbital protocol. Valium 10 mg every 6 hours as needed. Continue gabapentin per home doses (800 mg PO TID). Thiamine, multivitamins and folic acid. Addiction medicine consult. Acute anxiety. Continue Valium and Atarax as needed. Nausea, vomiting and abdominal pain, likely secondary to above. Check lipase. Continue IV fluids. Antiemetic as needed. PPI IV. Suicide ideation and plan (gunshot to the head, has a firearm at home). Sectioned 12. Observation one-to-one. Suicidal precautions. Safety tray. Psychiatric consult. Hypokalemia, likely secondary to vomiting and/or alcohol consumption. Received 20 mEq of KCl in ED. Will continue to monitor replete as needed. Bipolar disorder. Not taking her home medications. Psychiatric consult. Hyperglycemia. No history of diabetes mellitus. Check hemoglobin A1c. Continue to monitor BG before meals and bedtime for now. Diabetic diet. DVT prophylaxis: Lovenox Code status: Full Patient will need hospitalization for at least 2 midnights for alcohol withdrawal syndrome therapy with phenobarbital and IV benzodiazepines; she will also need prompt evaluation by psychiatry service due to active suicidal ideation. Quality Stroke Does the patient have a stroke diagnosis?: No VTE Prior VTE?: No VTE Risk Level:: Medical - moderate - high VTE Device Contraindication: Treatment Not Indicated VTE Drug Contraindication: N/A - Med Ordered
[2025-06-20] MEDS: PHENobarbitaL sodium 130 MG/ML IM ONCE 219 MG IM (17:38)
[2025-06-20] MEDS: diazePAM 10 MG/2 ML CARTRIDGE IVPUSH (18:20)
--- NOTE | 2025-06-20 18:20 | PC.NURSE ---
pr Dr. Ayden Banks, OK to give valium 10mg now. last 1 time does 1649.
--- NOTE | 2025-06-20 18:20 | PHA.MEDREC ---
Addendum entered by Shani Newman [facility] 06/20/25 18:33: REVIEWED BY PHARMACIST Original Note: Pharmacy Consult ? Medication Reconciliation Pharmacy has completed the medication reconciliation. Spoke with pt and she was being un-cooperative when asking about her medications and wasn't able to tell me what she has been taking. I called pt father (Jeovany [phone]) and he was not sure what the pt was taking at this time either. Utilized claims to confirm med rec.
[2025-06-20 18:22] LABS: Lipase 6 U/L (8-78)
[2025-06-20] MEDS: Lactated Ringers 1,000 ML 150 ML IVCONT (18:28)
[2025-06-20] MEDS: Thiamine HCL 100 MG in 0.9 % Sodium Chloride 100 ML 202 MG IV (18:28)
--- NOTE | 2025-06-20 18:38 | PC.NURSE ---
Pt walked toward exit saying they were leaving. she stated she would leave and demanded more valium. She was told she was on a Sec12 and could not leave. Security was notified. This RN reached out to MD to see if she could have more valium PRN bc it had only been a couple of hours after the last 1 time dose ordered. MD okay admin. Pt had lengthy conversation with MD at bedside regarding plan of care. MD explained medication timing and dosing. pt agreeable. Pt got 10mg IVP valium. Several minutes after pt stating she was given 20mg IV valium at another facility and is now demanding 20mg valium. Pt reminded of plan of care.
[2025-06-20] MEDS: diazePAM 10 MG/2 ML CARTRIDGE 12.5 MG IVPUSH (19:54)
[2025-06-20] MEDS: PHENobarbitaL sodium 130 MG/ML VIAL IM Q3Hx2 164 MG IM (20:07)
--- NOTE | 2025-06-20 20:07 | PC.NURSE ---
Unable to scan phenobarbital, medication given in left deltoid. Patient tolerated well.
[2025-06-20 20:38] VITALS: BP 125/88; PULSE 101; RESP 16; TEMP 36.3; O2SAT 96
[2025-06-20 21:34] LABS: Glucose, Whole Blood 175 mg/dL (60-115)
[2025-06-20 21:59] LABS: Anion Gap 17 (12-20); Blood Urea Nitrogen 5 mg/dL (9-16); Calcium 8.1 mg/dL (8.4-10.2); Carbon Dioxide 19 mmol/L (22-29); Chloride 107 mmol/L (96-108); Creatinine Clr Calc Pharmacy 154.2; Estimated Glomerular Filt Rate > 60; Magnesium 1.4 mg/dL (1.6-2.6); Potassium 4.4 mmol/L (3.3-5.1); Sodium 139 mmol/L (135-145)
--- NOTE | 2025-06-20 22:07 | PC.NURSE ---
Another nurse took lab call, patients magnesium is 1.4. Notified MD via tiger text of lab results.
--- NOTE | 2025-06-20 22:53 | PC.NURSE ---
Spoke with provider and made aware patient is resting comfortably, that PM medication is late. MD aware and is okay with it stating she can take her medication when she awakens, not to wake her up.
[2025-06-20] MEDS: Magnesium Sulfate/H2O 2 GM/50 ML PIGGYBACK IV (22:55)
[2025-06-21] VITALS (7 sets, daily range): BP systolic 112–141; BP diastolic 73–90; PULSE 64–104; RESP 16–20; TEMP 36.6–37.1; O2SAT 94–124; BMI 25.2
--- NOTE | 2025-06-21 01:19 | PC.NURSE ---
Patient desated to 89%, reposition patient with no change. Applied 1L of [place] 02. patient oxygen is now 96%
[2025-06-21] MEDS: Lactated Ringers 1,000 ML 150 ML IVCONT ×2 (01:26→07:22)
[2025-06-21 05:27] LABS: Hematocrit 37.7 % (37.0-47.0); Hemoglobin 13.6 g/dl (12.0-16.0); Imm Gran Abs Auto 0.02 X10*3/uL (0.00-0.03); Imm Gran Pct Auto 0.2 % (0.0-0.4); Lymphocytes Absolute Auto 4.0 X10*3/uL (1.2-4.9); MANUAL DIFF FLAG NO; Mean Corpuscular HGB Conc 36.1 g/dl (31.0-35.0); Mean Corpuscular Hemoglobin 30.6 pg (27.0-33.0); Mean Corpuscular Volume 84.7 fL (80.0-98.0); NRBC Abs Auto 0.000 X10*3/uL (0.0-0.012); NRBC Pct Auto 0.0 /100WBC (0.0-0.2); Platelet Count 184 X10*3/uL (160-400); Red Blood Count 4.45 X10*6/uL (4.20-5.50); White Blood Count 8.8 X10*3/uL (4.8-10.8)
[2025-06-21 05:49] LABS: Alanine Aminotransferase 12 U/L (0-31); Albumin Level 3.6 g/dL (3.5-5.0); Alkaline Phosphatase 98 U/L (39-117); Anion Gap 12 (12-20); Aspartate Amino Transferase 24 U/L (5-31); Blood Urea Nitrogen 5 mg/dL (9-16); Calcium 8.1 mg/dL (8.4-10.2); Carbon Dioxide 26 mmol/L (22-29); Chloride 103 mmol/L (96-108); Creatinine Clr Calc Pharmacy 148.4; Estimated Glomerular Filt Rate > 60; Magnesium 1.9 mg/dL (1.6-2.6); Potassium 3.2 mmol/L (3.3-5.1); Sodium 138 mmol/L (135-145); Total Protein 6.0 g/dL (6.5-8.0)
[2025-06-21 07:21] LABS: Hemoglobin A1C 453.5072 umol/L; Total Hemoglobin (HGBA1C) 3610.1038 umol/L
[2025-06-21] MEDS: diazePAM 10 MG/2 ML CARTRIDGE IVPUSH ×4 (07:22→22:13)
[2025-06-21 07:26] LABS: Glucose, Whole Blood 181 mg/dL (60-115)
[2025-06-21] MEDS: Potassium Chloride ER 20 MEQ TAB.ER.PRT 40 MEQ PO (09:50)
--- NOTE | 2025-06-21 10:31 | MHC.CM.PN ---
Pt lives with family, she does not use home health services or DME. She does not have a PCP and declines to complete HCP. DCP: to be eval by care team for SI, pt. currently with sitter in room. CM to follow for DC needs.
--- NOTE | 2025-06-21 11:12 | HO.PM.IMPN ---
Subjective Subjective Date of Service: 06/21/25 Review of Systems Follow up ETOH intoxication withdrawal now Very belligerent, being violent with staff verbally and physically requesting Valium every hour Physical Exam Exam: Exam: Appearing in no acute distress lung sounds are clear to auscultation heart regular rate rhythm, clear S1, S2 positive bowel sounds, abdomen is soft, nontender neuro patient is alert x3, no focal deficits Vital Signs: Vital Signs: Last Vital Signs Temp 97.8 F 06/21/25 08:00 Pulse 101 H 06/21/25 08:00 Resp 18 06/21/25 08:00 BP 137/90 H 06/21/25 08:00 Pulse Ox 99 06/21/25 08:00 O2 Del Method Room Air 06/21/25 08:00 O2 Flow Rate 1 06/21/25 01:20 BMI result Body Mass Index 25.7 Objective Data Active Medications Acetaminophen (Acetaminophen 325 Mg Tablet) 650 mg PO Q6H PRN PRN Reason: Pain, Mild 1-3,fever,headache Calcium Carbonate (Calcium Carbonate 750 Mg Tab.Chew) 750 mg PO Q4H PRN PRN Reason: Heartburn Clonidine HCl (Clonidine Hcl 0.1 Mg Tablet) 0.1 mg PO TID KATHY; Protocol Last Admin: 06/21/25 09:54 Dose: 0.1 mg Documented By: CARLOS Diazepam (Diazepam 10 Mg/2 Ml Cartridge) 10 mg IVPUSH Q6H PRN PRN Reason: Alcohol Withdrawal Last Admin: 06/21/25 07:22 Dose: 10 mg Documented By: MICHELLE Enoxaparin Sodium (Enoxaparin Sodium 40 Mg/0.4 Ml Syringe) 40 mg SUBCUT Q24H KATHY Last Admin: 06/21/25 09:51 Dose: 40 mg Documented By: CARLOS Gabapentin (Gabapentin 400 Mg Capsule) 800 mg PO TID KATHY Last Admin: 06/21/25 09:52 Dose: 800 mg Documented By: CARLOS Hydroxyzine HCl (Hydroxyzine Hcl 50 Mg Tablet) 100 mg PO Q8H PRN PRN Reason: Anxiety Last Admin: 06/21/25 07:22 Dose: 100 mg Documented By: MICHELLE Thiamine HCl 100 mg/ Sodium (Chloride) 101 mls @ 202 mls/hr IV DAILY [facility] Last Infusion: 06/20/25 22:12 Dose: Infused Documented By: HEVER Folic Acid 1 mg/ Sodium (Chloride) 50.2 mls @ 100.4 mls/hr IV DAILY [facility] Potassium Chloride/Sodium Chloride (Kcl 40 Meq In 0.9 % Sodium Chl) 40 meq in 1,000 mls @ 100 mls/hr IVCONT .Q10H [facility] Magnesium Hydroxide (Milk Of Magnesia 30 Ml Oral.Susp) 30 ml PO DAILY PRN PRN Reason: Constipation Melatonin (Melatonin 3 Mg Tablet) 6 mg PO BEDTIME PRN PRN Reason: Insomnia Multivitamins/Vitamin C (Multivitamin Tablet) 1 tab PO DAILY [facility] Last Admin: 06/21/25 09:55 Dose: 1 tab Documented By: CARLOS Pantoprazole Sodium (Pantoprazole Sodium 40 Mg/10 Ml Vial) 40 mg IVPUSH DAILY@0630 [facility] Last Admin: 06/21/25 05:48 Dose: 40 mg Documented By: HEVER Pharmacy Consult (Consult Rx Etoh Phenob Im/Po) 1 each MISCELLANE ONCE PRN; Protocol PRN Reason: Consult order Phenobarbital (Phenobarbital 15 Mg Tablet) 45 mg PO BID [facility] Stop: 06/22/25 21:01 Last Admin: 06/21/25 09:52 Dose: 45 mg Documented By: CARLOS Phenobarbital (Phenobarbital 15 Mg Tablet) 15 mg PO BID [facility] Stop: 06/24/25 21:01 Phenobarbital (Phenobarbital 15 Mg Tablet) 15 mg PO DAILY [facility] Stop: 06/26/25 09:01 Prochlorperazine Edisylate (Prochlorperazine Edisylate 10 Mg/2 Ml Vial) 5 mg IV Q4H PRN PRN Reason: Nausea and Vomiting Last Admin: 06/20/25 19:11 Dose: 5 mg Documented By: HEVER Sodium Chloride (0.9 % Sodium Chloride Flush 3 Ml Syringe) 3 ml IVFLUSH QSHIFT [facility] Last Admin: 06/21/25 07:29 Dose: Not Given Documented By: MICHELLE Non-Admin Reason: IV Running Labs 06/21/25 05:23 06/21/25 05:23 Labs: Laboratory Results - last 24 hr 06/20/25 06/20/25 06/20/25 12:34 15:03 15:17 MCV 86.6 MCH 30.6 MCHC 35.4 H RDW 12.4 Plt Count 342 MPV 9.3 L Immature Gran % (Auto) 0.4 Neut % (Auto) 67.5 Lymph % (Auto) 25.9 [place] % (Auto) 3.5 Eos % (Auto) 2.0 Baso % (Auto) 0.7 Lymph # (Auto) 2.7 [place] # (Auto) 0.4 Eos # (Auto) 0.2 Baso # (Auto) 0.1 Abs Immat Gran (auto) 0.04 H Absolute Neuts (auto) 7.1 Absolute Nucleated RBC 0.000 Nucleated RBC % (auto) 0.0 Anion Gap 22 H Estim Creat Clear Calc 119.2 Estimated GFR > 60 POC Glucose 254 H Random Glucose 390 H* Estimat Average Glucose Hemoglobin A1c % Calcium 8.8 D Magnesium 2.0 Total Bilirubin 0.3 AST 41 H ALT 26 Alkaline Phosphatase 127 H Total Protein 8.1 H Albumin 5.0 Lipase 6 L Beta HCG, Quant < 2 Urine Opiates Screen Not Detected Ur Buprenorphine Scrn Not Detected Ur Oxycodone Screen Not Detected Urine Methadone Screen Not Detected Urine Fentanyl Screen Not Detected Ur Barbiturates Screen POSITIVE H Ur Phencyclidine Scrn Not Detected Ur Amphetamines Screen Not Detected U Benzodiazepines Scrn Not Detected Urine Cocaine Screen Not Detected U Marijuana (THC) Screen Not Detected Ethyl Alcohol 304 H* 06/20/25 06/20/25 06/21/25 21:31 21:32 05:23 MCV 84.7 MCH 30.6 MCHC 36.1 H RDW 12.2 Plt Count 184 D MPV 9.3 L Immature Gran % (Auto) 0.2 Neut % (Auto) 45.8 Lymph % (Auto) 44.8 H [place] % (Auto) 5.4 Eos % (Auto) 3.5 Baso % (Auto) 0.3 Lymph # (Auto) 4.0 [place] # (Auto) 0.5 Eos # (Auto) 0.3 Baso # (Auto) 0.0 Abs Immat Gran (auto) 0.02 Absolute Neuts (auto) 4.0 Absolute Nucleated RBC 0.000 Nucleated RBC % (auto) 0.0 Anion Gap 17 12 Estim Creat Clear Calc 154.2 148.4 Estimated GFR > 60 > 60 POC Glucose 175 H Random Glucose 191 H 170 H Estimat Average Glucose 344 Hemoglobin A1c % 13.6 H Calcium 8.1 L D 8.1 L Magnesium 1.4 L* 1.9 Total Bilirubin 0.5 AST 24 ALT 12 Alkaline Phosphatase 98 Total Protein 6.0 L Albumin 3.6 Lipase Beta HCG, Quant Urine Opiates Screen Ur Buprenorphine Scrn Ur Oxycodone Screen Urine Methadone Screen Urine Fentanyl Screen Ur Barbiturates Screen Ur Phencyclidine Scrn Ur Amphetamines Screen U Benzodiazepines Scrn Urine Cocaine Screen U Marijuana (THC) Screen Ethyl Alcohol 06/21/25 07:23 MCV MCH MCHC RDW Plt Count MPV Immature Gran % (Auto) Neut % (Auto) Lymph % (Auto) [place] % (Auto) Eos % (Auto) Baso % (Auto) Lymph # (Auto) [place] # (Auto) Eos # (Auto) Baso # (Auto) Abs Immat Gran (auto) Absolute Neuts (auto) Absolute Nucleated RBC Nucleated RBC % (auto) Anion Gap Estim Creat Clear Calc Estimated GFR POC Glucose 181 H Random Glucose Estimat Average Glucose Hemoglobin A1c % Calcium Magnesium Total Bilirubin AST ALT Alkaline Phosphatase Total Protein Albumin Lipase Beta HCG, Quant Urine Opiates Screen Ur Buprenorphine Scrn Ur Oxycodone Screen Urine Methadone Screen Urine Fentanyl Screen Ur Barbiturates Screen Ur Phencyclidine Scrn Ur Amphetamines Screen U Benzodiazepines Scrn Urine Cocaine Screen U Marijuana (THC) Screen Ethyl Alcohol Assessment and Plan (1) Bipolar disorder: Status: Acute (2) Alcohol use disorder: Status: Acute Plan 29-year-old woman admitted with alcohol intoxication and withdrawal Alcohol withdrawal syndrome. Continue phenobarbital protocol. Valium 10 mg every 6 hours as needed. Continue gabapentin per home doses (800 mg PO TID). Thiamine, multivitamins and folic acid. Addiction medicine consult. Acute anxiety. Continue Valium and Atarax as needed. Nausea, vomiting and abdominal pain, likely secondary to above. Check lipase. Continue IV fluids. Antiemetic as needed. PPI IV. Suicide ideation and plan (gunshot to the head, has a firearm at home). Sectioned 12. Observation one-to-one. Suicidal precautions. Safety tray. Psychiatric consult. Hypokalemia, likely secondary to vomiting and/or alcohol consumption. Oral potassium 40 mEq Ordered IV fluids with KCl but patient has declined Bipolar disorder. Not taking her home medications. Psychiatric consult. Hyperglycemia. No history of diabetes mellitus. Check hemoglobin A1c. Continue to monitor BG before meals and bedtime for now. Diabetic diet DVT prophylaxis: Lovenox Code status: Full Quality Stroke Does the patient have a stroke diagnosis?: No VTE Prior VTE?: No VTE Risk Level:: Medical - moderate - high VTE Device Contraindication: Treatment Not Indicated VTE Drug Contraindication: N/A - Med Ordered
[2025-06-21 11:32] LABS: Glucose, Whole Blood 352 mg/dL (60-115)
--- NOTE | 2025-06-21 13:13 | MHC.RECOVRN ---
T/W met with pt. in [id number] following request from nursing charge Kristin to provided support. Pt is sitting up in bed rocking back and forth. When I ask her what is bothering her she just states that she is having W/D and the medication is not helping. She can not identify specific symptoms other than the skin on my face is crawling . Pt receiving pheno taper and Valium PRN. She reports to me that pheno has not been helpful in the past and just the Vaium has helped. I provided her with education re: medical issues that accompany W/D and safe W/D. I connected with nursing Charge Kristin and let her know what pt. had reported re: pheno and Valium. I suggested she discuss with provider if the Valium can be safely increased at this time. I also recommended she ask provider to STAT the psych consult so psych can make recommendations on meds to help relax the pt. while in detox. She does have a psych consult pending. T/W unable to complete full eval due to pt's current mental status/mood. ACS will attempt another visit tomorrow. T/W available as needed.
[2025-06-21] MEDS: 0.9 % Sodium Chloride Flush 3 ML SYRINGE IVFLUSH ×2 (14:50→21:58)
[2025-06-21 16:14] LABS: Glucose, Whole Blood 274 mg/dL (60-115)
[2025-06-21] MEDS: KCl 40 mEq in 0.9 % Sodium Chl 40 MEQ/1,000 ML IV.SOLN 100 MEQ IVCONT (16:41)
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
[2025-06-21 20:10] LABS: Glucose, Whole Blood 296 mg/dL (60-115)
[2025-06-21] MEDS: Insulin Glargine,Hum.rec.anlog 100 UNIT/ML 10 ML VIAL 10 UNIT SUBCUT (22:01)
--- NOTE | 2025-06-21 22:18 | PC.NURSE ---
Addendum entered by Cherelle Granados RN 06/22/25 01:33: Patient with outbursts. Spilling drinks on the floor, yelling at staff, and threatening and attempting to pull out her IV access. Staff attempted to calm and redirect. Pt initially requested snacks, then medications. This pt was offered both various snacks and prn medications per MAR though pt declined all of these offers. Pt stated I'm leaving. I'm gonna jump out of that fucking window . Pt then reported she only wants valium. Covering Dr. Valdovinos was notified of pt escalation and to bedside. 1x additional IVP valium ordered and given with MD at bedside with +effect. Patient resting in bed with eyes closed, breathing observed even and unlabored without distress. Continues with VMT and 1:1 sitter for safety. Original Note: Patient refusing to take scheduled phenobarbital, stated Phenobarbital doesn't work for me . Pt requested to take prn valium instead, threatened to pull out IV if she could not have the valium instead. Covering Dr. Valdovinos notified, written okay to give prn valium instead at this time. Pt medicated per JAN. Pt continues to make active SI statements and continues with 1:1 sitter and VMT camera at bedside.
[2025-06-22] VITALS: BP 115/73; PULSE 94; RESP 16; TEMP 36.6; O2SAT 97
[2025-06-22] MEDS: diazePAM 10 MG/2 ML CARTRIDGE IVPUSH ×4 (01:22→09:55)
[2025-06-22] MEDS: KCl 40 mEq in 0.9 % Sodium Chl 40 MEQ/1,000 ML IV.SOLN 100 MEQ IVCONT (02:46)
[2025-06-22 04:00] VITALS: BP 120/70; PULSE 86; RESP 16; TEMP 36.3; O2SAT 96
[2025-06-22 07:14] LABS: Anion Gap 7 (12-20); Blood Urea Nitrogen 5 mg/dL (9-16); Calcium 7.9 mg/dL (8.4-10.2); Carbon Dioxide 25 mmol/L (22-29); Chloride 108 mmol/L (96-108); Creatinine Clr Calc Pharmacy 152.7; Estimated Glomerular Filt Rate > 60; Potassium 4.1 mmol/L (3.3-5.1); Sodium 136 mmol/L (135-145)
[2025-06-22] MEDS: 0.9 % Sodium Chloride Flush 3 ML SYRINGE IVFLUSH (07:21)
[2025-06-22 07:22] VITALS: BP 117/90; PULSE 88; RESP 18; TEMP 36.2; O2SAT 99
[2025-06-22 07:29] LABS: Glucose, Whole Blood 236 mg/dL (60-115)
--- NOTE | 2025-06-22 11:42 | PC.NURSE ---
0830- Patient very agitated, yelling, swearing, verbally abusive to staff. Patient yelling, i wanna get the hell out of here . attempting to elope in elevator. Requiring frequent redirection back into her room. Security called multiple times to assist with redirecting patient to room. Patient continuously requesting IV valium for withdrawl symptoms. refusing IVF, verbally stating she is going to remove IV in left arm. Sitter at bedside for safety. MD notified of patient's behavior, at bedside to evaluate. No new orders at this time.
--- NOTE | 2025-06-22 11:46 | PC.NURSE ---
Patient agitated, irritated, yelling at staff intermittently. PRN IV valium 2mg given at 1015. Patient appearing to be calmer and sleeping in recliner intermittently. Ambulated to bathroom one assist with unsteady gait and eyes closing. Frequently attempting to get up to ambulate in hallway Security called to facilitate helping patient back to chair.
[2025-06-22 12:00] VITALS: BP 131/87; PULSE 95; RESP 18; TEMP 36.3; O2SAT 100
[2025-06-22 12:04] LABS: Glucose, Whole Blood 133 mg/dL (60-115)
--- NOTE | 2025-06-22 13:51 | MHC.CM.PN ---
Per record review, pt. is not ready to DC, and will need care team eval. for psych admission.
--- NOTE | 2025-06-22 14:58 | PC.NURSE ---
Patient having increased agitation. Requesting IV valium constantly, patient stating all other medications dont work . SItter at bedside for safety. Patient requesting to shower and remove her IV. Patient told she is not allowed to shower due to safety concerns but states shes going to anyways. MD notified of increasing behavior. PRN haldol ordered and offered, patient refused. Care team consult for re evaluation pending.
[2025-06-22 15:49] LABS: Glucose, Whole Blood 382 mg/dL (60-115)
--- NOTE | 2025-06-22 16:48 | P.PNIM_ITS ---
Subjective Subjective Date of Service: 06/23/25 Interval History: Patient has been seen and examined multiple times throughout the day. Although she has been consistently requesting IV Valium, she has remained mostly calm, without signs of agitation, tremors, or tachycardia. She refuses to take any other medications, insisting that only IV Valium is effective and that other routes are not acceptable. At no time during my evaluations did she exhibit objective signs of alcohol withdrawal. Behaviorally, the patient has been verbally abusive toward staff, including the use of racial slurs (notably the N- word), name-calling, frequent profanity, and threats to harm staff once discharged. She has made multiple attempts to elope from the unit and security has been summoned nearly every hour,and required both chemical and physical restraints for safety. Notably, when she chooses to engage, she has demonstrated periods of calmness and expressed remorse for her behavior. Physical Exam 2 Vital Signs: Vital Signs: Last Vital Signs Temp 97.3 F 06/22/25 12:00 Pulse 95 06/22/25 12:00 Resp 18 06/22/25 12:00 BP 131/87 06/22/25 12:00 Pulse Ox 100 06/22/25 12:00 O2 Del Method Room Air 06/22/25 12:00 O2 Flow Rate 1 06/21/25 01:20 BMI result Body Mass Index 25.2 General: AO X 3, no acute distress Resp: CTA bilateral CVS: S1,S2,RRR GI: +BS, NT, no distention Skin: No rash Neuro: motor grossly intact, no tremors Psych: flat affect Objective Data Active Medications Acetaminophen (Acetaminophen 325 Mg Tablet) 650 mg PO Q6H PRN PRN Reason: Pain, Mild 1-3,fever,headache Calcium Carbonate (Calcium Carbonate 750 Mg Tab.Chew) 750 mg PO Q4H PRN PRN Reason: Heartburn Clonidine HCl (Clonidine Hcl 0.1 Mg Tablet) 0.1 mg PO TID [facility]; Protocol Last Admin: 06/22/25 14:50 Dose: Not Given Documented By: FACUNDO Non-Admin Reason: Patient Refused Dextrose (Dextrose 50 % 25 Gm/50 Ml Syringe) 25 gm IVPUSH Q15M PRN; Protocol PRN Reason: per Hypoglycemia Standing Ord. Diazepam (Diazepam 5 Mg Tablet) 5 mg PO Q6H PRN PRN Reason: Anxiety Enoxaparin Sodium (Enoxaparin Sodium 40 Mg/0.4 Ml Syringe) 40 mg SUBCUT Q24H [facility] Last Admin: 06/22/25 07:24 Dose: 40 mg Documented By: LEILA Gabapentin (Gabapentin 400 Mg Capsule) 800 mg PO TID [facility] Last Admin: 06/22/25 14:50 Dose: Not Given Documented By: FACUNDO Non-Admin Reason: Patient Refused Glucose (Glucose Gel 15 Gm Gel..Gram.) 15 gm PO Q15M PRN; Protocol PRN Reason: per Hypoglycemia Standing Ord. Haloperidol Lactate (Haloperidol Lactate 5 Mg/Ml Vial) 5 mg IM Q6H PRN PRN Reason: for agitation Last Admin: 06/22/25 15:56 Dose: 5 mg Documented By: RENEE Hydroxyzine HCl (Hydroxyzine Hcl 50 Mg Tablet) 100 mg PO Q8H PRN PRN Reason: Anxiety Last Admin: 06/22/25 07:19 Dose: 100 mg Documented By: LEILA Thiamine HCl 100 mg/ Sodium (Chloride) 101 mls @ 202 mls/hr IV DAILY [facility] Last Admin: 06/22/25 07:42 Dose: Not Given Documented By: FACUNDO Non-Admin Reason: Patient Refused Folic Acid 1 mg/ Sodium (Chloride) 50.2 mls @ 100.4 mls/hr IV DAILY [facility] Last Admin: 06/22/25 07:30 Dose: Not Given Documented By: LEILA Non-Admin Reason: Patient Refused Potassium Chloride/Sodium Chloride (Kcl 40 Meq In 0.9 % Sodium Chl) 40 meq in 1,000 mls @ 100 mls/hr IVCONT .Q10H [facility] Last Admin: 06/22/25 14:50 Dose: Not Given Documented By: FACUNDO Non-Admin Reason: Patient Refused Insulin Glargine (Insulin Glargine,Hum.Rec.Anlog 100 Unit/Ml 10 Ml Vial) 10 unit SUBCUT BEDTIME [facility] Last Admin: 06/21/25 22:01 Dose: 10 unit Documented By: CANDY Insulin Human Lispro (Insulin Lispro 100 Unit/Ml 3 Ml Vial) 0 unit SUBCUT QIDACHS [facility]; Protocol Last Admin: 06/22/25 15:51 Dose: 10 unit Documented By: RENEE Magnesium Hydroxide (Milk Of Magnesia 30 Ml Oral.Susp) 30 ml PO DAILY PRN PRN Reason: Constipation Melatonin (Melatonin 3 Mg Tablet) 6 mg PO BEDTIME PRN PRN Reason: Insomnia Multivitamins/Vitamin C (Multivitamin Tablet) 1 tab PO DAILY [facility] Last Admin: 06/22/25 07:30 Dose: Not Given Documented By: LEILA Non-Admin Reason: Patient Refused Olanzapine (Olanzapine 5 Mg Tablet) 5 mg PO Q6H PRN PRN Reason: SEVERE AGITATION Oxcarbazepine (Oxcarbazepine 150 Mg Tablet) 150 mg PO BID [facility] Last Admin: 06/22/25 07:20 Dose: 150 mg Documented By: LEILA Pantoprazole Sodium (Pantoprazole Sodium 40 Mg/10 Ml Vial) 40 mg IVPUSH DAILY@629 [facility] Last Admin: 06/22/25 05:46 Dose: 40 mg Documented By: CANDY Pharmacy Consult (Consult Rx Etoh Phenob Im/Po) 1 each MISCELLANE ONCE PRN; Protocol PRN Reason: Consult order Phenobarbital (Phenobarbital 15 Mg Tablet) 45 mg PO BID [facility] Stop: 06/22/25 21:01 Last Admin: 06/22/25 07:19 Dose: 45 mg Documented By: LEILA Phenobarbital (Phenobarbital 15 Mg Tablet) 15 mg PO BID [facility] Stop: 06/24/25 21:01 Phenobarbital (Phenobarbital 15 Mg Tablet) 15 mg PO DAILY [facility] Stop: 06/26/25 09:01 Prochlorperazine Edisylate (Prochlorperazine Edisylate 10 Mg/2 Ml Vial) 5 mg IV Q4H PRN PRN Reason: Nausea and Vomiting Last Admin: 06/20/25 19:11 Dose: 5 mg Documented By: HEVER Sodium Chloride (0.9 % Sodium Chloride Flush 3 Ml Syringe) 3 ml IVFLUSH QSHIFT [facility] Last Admin: 06/22/25 07:21 Dose: 3 ml Documented By: ELILA Labs 06/21/25 05:23 06/22/25 06:24 Labs: Laboratory Results - last 24 hr 06/21/25 06/22/25 06/22/25 20:05 06:24 07:25 Anion Gap 7 L Estim Creat Clear Calc 152.7 Estimated GFR > 60 POC Glucose 296 H 236 H Random Glucose 287 H Calcium 7.9 L 06/22/25 06/22/25 12:01 15:46 Anion Gap Estim Creat Clear Calc Estimated GFR POC Glucose 133 H 382 H* Random Glucose Calcium Assessment and Plan (1) Bipolar disorder: Status: Acute (2) Alcohol use disorder: Status: Acute Plan 29-year-old woman admitted with alcohol intoxication and admitted for alcohol withdrawal Alcohol use disorder, though admitted for withdrawal, she jakob been refusing staand phenobarbital and only wanting Valium IV, she was always calm on my evaluation without agitation, no tremors, not confused, no tachycardia and other sigs suggestive of alcohol, rather her behavior is seeking the valium intravenously. Athis point, her behavior is more of psychiatric instability than alcohol withdrawal. I note that she has been hospitalized on multiple occasion to the Psych unit. I have ask the CARE team for referall to inpatient Psych unit. Will discontinue IV Valium and oral PRN for anxiety, along with Haldol if need to control her behavior Acute anxiety. Valium, atarax, zyprexa and need inpatient Psych Nausea, vomiting and abdominal pain, likely secondary to above. resolved Suicide ideation and plan (gunshot to the head, has a firearm at home). Sectioned 12. Observation one-to-one. Suicidal precautions. Safety tray. Psychiatric consult. reocmmends inpatient Hypokalemia, likely secondary to vomiting and/or alcohol consumption. resolved Bipolar disorder. Not taking her home medications. Psychiatric recommmend inpatient care Hyperglycemia, no prior history of DM? Hgb A1C is 13 sliding scale insulin, will need long acting insulin as well diabetic diet DVT prophylaxis: Lovenox Code status: Full Quality Stroke Does the patient have a stroke diagnosis?: No VTE Prior VTE?: No VTE Risk Level:: Medical - moderate - high VTE Device Contraindication: Treatment Not Indicated VTE Drug Contraindication: N/A - Med Ordered
--- NOTE | 2025-06-22 18:13 | PC.NURSE ---
Pt agitated, continuously trying to elope, 1 :1 sitter present, code assist called. Md came to bedside , Haldol ordered and admin with minimal effect. Patient continued to be combative, aggressive, unable to be redirect. Soft restraints ordered and applied, safety checks maintained. restraints removed @ 1710 , pt calm and cooperative, sitter present. Patient's primary contact (Dad) notified.
[2025-06-22 19:56] VITALS: BP 114/84; PULSE 96; RESP 16; TEMP 37.1; O2SAT 99
[2025-06-22 20:06] LABS: Glucose, Whole Blood 239 mg/dL (60-115)
[2025-06-22] MEDS: Insulin Glargine,Hum.rec.anlog 100 UNIT/ML 10 ML VIAL 10 UNIT SUBCUT (20:50)
[2025-06-23] MEDS: KCl 40 mEq in 0.9 % Sodium Chl 40 MEQ/1,000 ML IV.SOLN 100 MEQ IVCONT (01:40)
[2025-06-23 03:52] VITALS: BP 99/66; PULSE 91; RESP 16; TEMP 37.1; O2SAT 95
--- NOTE | 2025-06-23 07:25 | PC.NURSE ---
2130 Pt refuses ordered Potassium/normal saline infusion and continuos tele monitoring and pulse ox. Risks explained to patient. Provider notified.
[2025-06-23 08:00] VITALS: BP 122/76; PULSE 86; RESP 18; TEMP 36.8; O2SAT 97
[2025-06-23 08:56] VITALS: BP 122/76
[2025-06-23] MEDS: 0.9 % Sodium Chloride Flush 3 ML SYRINGE IVFLUSH (09:01)
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
[2025-06-23 11:44] VITALS: BP 119/70; PULSE 97; RESP 18; TEMP 36.5; O2SAT 98
[2025-06-23 11:50] LABS: Glucose, Whole Blood 150 mg/dL (60-115)
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
[2025-06-23 12:51] LABS: Glucose, Whole Blood 154 mg/dL (60-115)
--- NOTE | 2025-06-23 13:14 | PC.NURSE ---
pt is looking for IV valium, did not wanted to take zyprexa when offered but then stated: I will take it because if I will not, he (the doctor) will not give me IV valium.
--- NOTE | 2025-06-23 13:36 | PC.NURSE ---
Dr Miller offered us of the right arm due to swelling, pt refused.
== END 2025-06-23 13:19 | DRG 420 ==
LOC: HO.ED 16:48 → HO.EDOVER 16:50 → HO.IMC 06-21 07:06
PROVIDERS: Nurse Practitioner Acute Care; Admitting Provider Internal Medicine; Emergency Provider Emergency Medicine; PCP Dentist General Practice; Visit Provider Internal Medicine
DX: E11.65 Type 2 diabetes mellitus with hyperglycemia (principal); R45.851 Suicidal ideations; F10.139 Alcohol abuse with withdrawal, unspecified; F17.210 Nicotine dependence, cigarettes, uncomplicated; Z71.6 Tobacco abuse counseling; Y90.8 Blood alcohol level of 240 mg/100 ml or more; F41.9 Anxiety disorder, unspecified; E87.6 Hypokalemia; F31.9 Bipolar disorder, unspecified; Z91.148 Patient's other noncompliance with medication regimen for other reason; Z79.84 Long term (current) use of oral hypoglycemic drugs; Z79.899 Other long term (current) drug therapy
CPT/HCPCS: 36415; 80048; 80053; 80307; 82947; 83036; 83690; 83735; 84702; 85025; 99285; J0737; J1630; J1650; J2405; J2470; J2560; J3360; J3411; J3475; J3480; J7120; S9485

== ENCOUNTER → 2025-06-20 16:46 | Outpatient (BNV) | payer MEDICAID, SELFPAY | PROVIDERS: Admitting Provider Internal Medicine; Emergency Provider Emergency Medicine; PCP Dentist General Practice; Visit Provider Internal Medicine | DX: F31.9 Bipolar disorder, unspecified (principal); F10.90 Alcohol use, unspecified, uncomplicated | CPT/HCPCS: 99223; 99232 ==

== ENCOUNTER → 2025-06-20 16:46 | Outpatient (BNV) | payer OTHER, SELFPAY | PROVIDERS: Admitting Provider Internal Medicine; Emergency Provider Emergency Medicine; PCP Dentist General Practice; Visit Provider Nurse Practitioner Psychiatric/Mental Health | DX: F31.9 Bipolar disorder, unspecified (principal); F10.90 Alcohol use, unspecified, uncomplicated; F10.930 Alcohol use, unspecified with withdrawal, uncomplicated | CPT/HCPCS: 99222 ==

== ENCOUNTER 2025-06-23 13:43 | Inpatient (IN) | payer OTHER, SELFPAY ==
--- OUTSIDE RECORDS SUMMARY | 2025-06-20 01:39 | XMS_ITS | Encounter Summary ---
Author Organization [facility] Address [address] [place] [address] Care Team Providers Care Press Machine Feeder Name Role Phone Physician, No Pcp Primary Care Provider Unavaila ble Reason for Visit * Reason Comments Alcohol Problem Encounter Details Date Type Department Care Team (Late st Contact Info) Description 06/20/2025 1:39 AM EDT - 06/20/2025 9:21 AM EDT Emergency [facility] Emergency [address] [place] [phone] Kasey Wilks MD [address] [place] [address] Hypokalemia (Primary Dx); Hypomagnesemia; Acute alcoholic intoxication without complication (CMS/HCC V24); Generalized abdominal pain; Alcohol use disorder Discharge Disposition: Home or Self Care Social History Tobacco Use Types Packs/Day Years Used Date Smoking Tobacco: Some Days Cigarettes Smokeless Tobacco: Never Comments:Trying to stop Alcohol Use Standard Drinks/Week Comments Not Currently 0 (1 standard drink = 0.6 oz pur e alcohol) Comments No Sex and Gender Information Value Date Recorded Sex Assigned at Not on file Legal Sex Female 10:45 AM EST Gender Identity Not on file Sexual Orientation Not on file documented as of this encounter Last Filed Vital Signs Vital Sign Reading Time Taken Comments Blood Pressure 123/95 06/20/2025 7:59 AM EDT Pulse 95 06/20/2025 7:59 AM EDT Temperature 36.5 C (97.7 F) 06/20/2025 7:30 AM EDT Respiratory Rate 18 06/20/2025 7:30 AM EDT Oxygen Saturation 99% 06/20/2025 7:30 AM EDT Inhaled Oxygen Concentration - - Weight 64.9 kg (143 lb) 06/20/2025 2:00 AM EDT Height 162.6 cm (5' 4 ) 06/20/2025 2:00 AM EDT Body Mass Index 24.55 06/20/2025 2:00 AM EDT documented in this encounter Discharge Instructions * Discharge Instructions* Kasey Wilks MD - 06/20/2025 9:07 AM EDT Ask someone to help you cut back on your drinking. They can help you be accountable to how much youdrink a day. If you are drinking 1/5 of hard liquor daily, start by drinking a pint daily for 3 days, then cut to half a pint for 3 days, then a few shots for a few days, then 1 shot for a few days, then no alcohol. Please start taking a multivitamin and eat lots of fruits and vegetables to help raise your potassium. Please establish care with a primary doctor soon as possible. * Attachments The following attachments cannot be sent through Care Everywhere. * 9 Ways to Cut Back on Drinking: Quick List (Faroese) * Hypokalemia (Faroese) documented in this encounter Discharge Disposition Disposition Code Departure Means Destination Comment s Home or Self Care documented in this encounter Progress Notes * Latricia Velazco RN - 06/20/2025 7:57 AM EDT Pt placed back on electronic device monitor. SR on monitor at 95bpm, resps are equal and unlab. Pt is spk clear full sent. HR regular on monitor. Pt generally feels unwell with body aches otherwise denies complaints at this time. CIWA to be completed. Bed is in lowest locked position, call vu is in reach. Seizure pads are in place due to past seizures related to withdrawal per the patient. * Latricia Velazco RN - 06/20/2025 7:56 AM EDT Pt medicated with second dose of phenobarbital. Provider Michael ordered remaining two doses per protocol for this RN to administer. * Magnolia Shahid RN - 06/20/2025 1:40 AM EDT Pt recently starting drinking again after a period of sobriety, no food for 3 days, only drinking etoh. Friend concerned for ETOH withdrawal. Hx of diabetes, not taking medication x4 days. * Kasey Wilks MD - 06/20/2025 1:29 AM EDT EMERGENCY DEPARTMENT Provider Note Room: / Patient: Ibeth Sommers PCP: No Pcp Physician Patient : 1995 Patient Department: [facility] [address] [place] [id number] Dept: [phone] Triage Chief Complaint: Alcohol Problem History of Present Illness: 29-year-old female with diabetes, alcohol use disorder presenting with concern for alcohol withdrawal. Reports her last drink was sometime earlier today. History limited as patient is quite agitated, tearful, requesting phenobarbital. Endorses vomiting, nausea, diffuse abdominal pain. Denies any illicit substance use. ED Course / MDM: 29-year-old female presenting with concern for alcohol withdrawal but on my examination she is clinically intoxicated, smells of alcohol. No tongue fasciculations, she is not tachycardic or hypertensive. Ethanol level 307. She is also hyperglycemic. Oral fluids encouraged and IV fluids administered. Glucose downtrending. ED Course as of 06/23/25 1213 Mon Jun 20, 2025 0542 Ethanol Level(!): 307 [EK] 0542 Magnesium(!): 1.8 [EK] 0542 Potassium(!!): 2.7 [EK] 0543 Oral magnesium, oral and IV potassium ordered. Additional fluids also ordered for hyperglycemia [EK] 1008 EKG at 0302 showed normal sinus rhythm with a rate of 87, normal axis, no STEMI. Nonspecific Twave inversions in leads III, V3. QTc is 483. When compared to prior from July 02, 2023 at 0710, patient has new T wave inversions today and QTcis slightly longer (was 464 back in 2022) [EK] Patient was given Ativan and multiple doses of phenobarbital, no change in her level of agitation and tearfulness. Her CIWA is only 5. Discussed with both her and her boyfriend tapering the amount she drinks, schedule for taper provided. Magnesium and potassium improving following supplementation. Advised patient eat regularly, she states she has not eaten anything in 3 days has only been drinking alcohol. Advise she establish care with PCP. Discharged home in stable condition with ED return precautions provided ED Course User Index [EK] Kasey Wilks MD Clinical Impressions as of 06/23/25 1213 Hypokalemia Hypomagnesemia Acute alcoholic intoxication without complication (CMS/[facility] V24) Generalized abdominal pain Alcohol use disorder Clinical Impression(s): Final diagnoses: [E87.6] Hypokalemia [E83.42] Hypomagnesemia [F10.920] Acute alcoholic intoxication without complication (CMS/HCC V24) [R10.84] Generalized abdominal pain [F10.90] Alcohol use disorder Discharge Physical Examination: Temp: 36.7 ??C (98.1 ??F) BP: 122/86 Heart Rate: 110 Resp: 18 SpO2: 100 % Nursing notes and vitals reviewed. Constitutional: Well-developed, well-nourished, and in no distress. Head: Normocephalic and atraumatic. Eyes: Conjunctivae and EOM are normal. Neck: Normal range of motion. No tracheal deviation present. Cardiovascular: Normal rate, intact distal pulses. Pulmonary/Chest: Effort normal. No respiratory distress. Abdominal: Soft. No distension. No abdominal tenderness. No rebound or guarding. Musculoskeletal: Normal range of motion. No deformity. Neurological: Alert. GCS 15. Skin: Warm and dry. Medications: Medications potassium chloride 10 mEq/100 mL IVPB 10 mEq (10 mEq intravenous Not Given 06/20/25 0823) LORazepam (ATIVAN) injection 0.5 mg (0.5 mg intravenous Given 06/20/25 0350) magnesium oxide (MAG-OX) tablet 400 mg (400 mg oral Given 06/20/25 0548) potassium chloride (KLOR-CON M20) CR tablet 40 mEq (40 mEq oral Given 06/20/25 0548) sodium chloride 0.9 % bolus 1,000 mL (0 mL intravenous Stopped 06/20/25 09) PHENobarbital injection 130 mg (130 mg intravenous Given 06/20/25625) ondansetron (PF) (ZOFRAN) injection 4 mg (4 mg intravenous Given 06/20/25625) Lab & Imaging Results: Encounter Date: 06/20/25 ECG 12 lead Result Value Ventricular Rate ECG 87 Atrial Rate 87 P-R Interval 138 QRS Duration 84 Q-T Interval 402 QTc 483 P Wave Winfield 59 R Winfield 42 T Winfield 19 ECG Interpretation Normal sinus rhythm Nonspecific T wave abnormality Abnormal ECG When compared with ECG of 02-JUL-2023 07:10, ST no longer elevated in Anterior leads T wave inversion now evident in Inferior leads T wave inversion now evident in Anterior leads Confirmed by WILLIAM MIGUEL ([id number]) on 06/21/2025 4:34:50 PM *Note: Due to a large number of results and/or encounters for the requested time period, some results have not been displayed. A complete set of results can be found in Results Review. If an EKG was performed on today's visit and is documented above I independently interpreted/read the EKG as noted above at the time of service as above. Labs Reviewed ETHANOL - Abnormal Result Value Ethanol Level 307 (*) MAGNESIUM - Abnormal Magnesium 1.8 (*) LIPASE - Abnormal Lipase 10 (*) COMPREHENSIVE METABOLIC PANEL - Abnormal Sodium 140 Potassium 2.7 (*) Chloride 99 CO2 26 Anion Gap 15 (*) Glucose 307 (*) BUN 5 Creatinine 0.64 eGFR 123 BUN/Creatinine Ratio 7.8 Calcium 9.2 AST (SGOT) 17 ALT (SGPT) 22 Alkaline Phosphatase 125 (*) Total Protein 7.5 Albumin 3.9 Total Bilirubin 0.2 CBC WITH AUTO DIFFERENTIAL - Abnormal WBC 11.6 (*) RBC 4.70 Hemoglobin 14.2 Hematocrit 40.7 MCV 85.9 MCH 30.0 MCHC 34.9 RDW 12.2 Platelets 401 (*) MPV 9.2 NRBC 0.0 NRBC Absolute 0.00 POTASSIUM - Abnormal Potassium 3.4 (*) POCT GLUCOSE, BLOOD - Abnormal Glucose POCT 304 (*) POCT GLUCOSE, BLOOD - Abnormal Glucose POCT 256 (*) MANUAL DIFFERENTIAL - INSTRUMENT DIFFERENTIAL - Abnormal Neutrophils % 39.0 Lymphocytes % 49.0 Reactive Lymphocyte 7.00 Monocytes % 3.0 Eosinophils % 2.0 Basophils % 1.0 Neutrophils Absolute Manual 4.52 Lymphocytes Absolute 5.68 (*) Reactive Lymph Abs Manual 0.81 (*) Monocytes Absolute Manual 0.35 Eosinophils Absolute Manual 0.23 Basophils Absolute Manual 0.12 Rbc Morphology Consistent with indices Platelet Morphology - WAM See Note (*) DRUG ABUSE SCREEN 8A PANEL, URINE - Normal Amphetamine Screen, Ur Negative Barbiturate Screen, Ur Negative Benzodiazepine Screen, Ur Negative Cocaine Screen, Ur Negative Opiate Screen, Ur Negative Cannabinoid (THC) Screen, Ur Negative Oxycodone Screen, Ur Negative Fentanyl, Ur Negative Narrative: Assay cutoffs: Amphetamines 1000 ng/mL Barbiturates 200 ng/mL Benzodiazepines 200 ng/mL Cocaine 300 ng/mL Fentanyl 1 ng/mL Opiates 300 ng/mL Oxycodone 100 ng/mL THC 50 ng/mL Semi-quantitative assay for screening purposes only. Unconfirmed screening result should not be used for non-medical purposes. *ALTERNATE METHOD CONFIRMATION DONE UPON REQUEST ONLY* CBC AND DIFFERENTIAL Narrative: The following orders were created for panel order CBC and differential. Procedure Abnormality Status --------- ------ CBC auto differential[[id number]] Abnormal Final result Please view results for these tests on the individual orders. No orders to display I personally reviewed the patient's images and agree with radiologist interpretation unless otherwise noted here or in ED course or MDM section Procedures: Procedures There are no discharge medications for this patient. Allergies: Seroquel [quetiapine] Past Medical History: Diagnosis Date Alcohol abuse Asthma DM (diabetes mellitus) ([facility] V24, [facility] V28) Past Surgical History: Procedure Laterality Date TONSILLECTOMY Social History Tobacco Use Smoking status: Some Days Types: Cigarettes Smokeless tobacco: Never Tobacco comments: Trying to stop Substance Use Topics Alcohol use: Not Currently Drug use: Never Kasey Wilks MD 06/20/25 0258 Kasey Wilks MD 06/23/25 1217 documented in this encounter Plan of Treatment Upcoming Encounters Date Type Department Care Team (Late st Contact Info) Description 07/25/2025 10:00 AM EDT Office Visit Obstetrics & Gynecology - [facility] [address] [place] [phone] Yasmeen Navarrete, GRACIELAM [address] [place] [address] documented as of this encounter Procedures Procedure Name Priority Date/Time Associated Diagnosis Comments ECG ANNOTATED 06/22/2025 POTASSIUM STAT 06/20/2025 8:52 AM EDT POCT GLUCOSE BLOOD Routine 06/20/2025 4: 27 AM EDT DRUG ABUSE SCREEN 8A PANEL, URINE STAT 06/20/2025 4:23 AM EDT ECG 12-LEAD STAT 06/20/2025 3:02 AM EDT MANUAL DIFFERENTIAL - SYSMEX WAM STAT 06/20/2025 3:00 AM EDT CBC WITH AUTO DIFFERENTIAL STAT 06/20/2025 3:00 AM EDT CBC AND DIFFERENTIAL STAT 06/20/2025 3:00 AM EDT MAGNESIUM STAT 06/20/2025 3:00 AM EDT LIPASE STAT 06/20/2025 3:00 AM EDT ETHANOL STAT 06/20/2025 3:00 AM EDT COMPREHENSIVE METABOLIC PANEL STAT 06/20/2025 3:00 AM EDT POCT GLUCOSE BLOOD Routine 06/20/2025 2: 58 AM EDT documented in this encounter Results * ECG-Annotated (06/22/2025) us Provider Onbase MD ECG ORDERABLES Final Result * (ABNORMAL) Potassium (06/20/2025 8:52 AM EDT) [facility] Potassium 3.4(L) 3.5 - 5.5 mmol/L LAB CHEMISTRY METHOD 06/20/2025 9:40 AM EDT [facility] Blood Venous blood specimen / Unknown Venipuncture / Unknown 06/20/2025 8:52 AM EDT 06/20/2025 9:16 AM EDT Kasey Wilks MD LAB BLOOD ORDERABLES Final Res ult Performing Organization Address [facility]/ZIP Co de Phone Number [facility] [address] [place] [address], [place] [phone] * (ABNORMAL) POCT Glucose, blood (06/20/2025 4:27 AM EDT) [facility] Glucose POCT 256(H) 70 - 100 mg/dL 06/20/2025 4:28 AM EDT [facility] Blood Capillary blood specimen / Unknown 06/20/2025 4:27 AM EDT 06/20/2025 4:29 AM EDT us Kasey Wilks MD LAB POINT OF CARE TE ST DOCKED DEVICE UNSOLICITED RESULTS Final Result Performing Organization Address [facility]/RUST de Phone Number [facility] [address] [place] [address], [place] [phone] * Drug abuse screen 8a panel, urine (06/20/2025 4:23 AM EDT) [facility] Amphetamine Screen, Ur Negative Negative LAB CHEMISTRY METHOD 06/20/2025 5:12 AM EDT [facility] Comment:Certain OTC medicati ons containing ephedrine, phenylephrine, pseudoephedrine and phenylpropanolamine can cause false positive results. Barbiturate Screen, Ur Negative Negative LAB CHEMISTRY METHOD 06/20/2025 5:12 AM EDT [facility] Benzodiazepine Screen, Ur Negative Negative LAB CHEMISTRY METHOD 06/20/2025 5:12 AM EDT [facility] Cocaine Screen, Ur Negative Negative LAB CHEMISTRY METHOD 06/20/2025 5:12 AM EDT [facility] Opiate Screen, Ur Negative Negative LAB CHEMISTRY METHOD 06/20/2025 5:12 AM EDT [facility] Cannabinoid (THC) Screen, Ur Negative Negative LAB CHEMISTRY METHOD 06/20/2025 5:12 AM EDT [facility] Comment:Specimens from patie nts taking pantoprazole sodium (Protonix) have been shown to produce false positive results. Oxycodone Screen, Ur Negative Negative LAB CHEMISTRY METHOD 06/20/2025 5:12 AM EDT [facility] Fentanyl, Ur Negative Negative LAB CHEMISTRY METHOD 06/20/2025 5:12 AM [facility] Urine Urine specimen obtained by clean catch procedure / Unknown Non-blood Collection / Unknown 06/20/2025 4:23 AM EDT 06/20/2025 4:28 AM EDT Narrative [facility] - 06/20/2025 5:12 AM EDT Assay cutoffs: Amphetamines 1000 ng/mL Barbiturates 200 ng/mL Benzodiazepines 200 ng/mL Cocaine 300 ng/mL Fentanyl 1 ng/mL Opiates 300 ng/mL Oxycodone 100 ng/mL THC 50 ng/mL Semi-quantitative assay for screening purposes only. Unconfirmed screening result should not be used for non-medical purposes. *ALTERNATE METHOD CONFIRMATION DONE UPON REQUEST ONLY* us Kasey Wilks MD LAB URINE ORDERABLES Final Res ult [facility] [address] [place] [address], * ECG 12 lead (06/20/2025 3:02 AM EDT) Ventricular Rate ECG 87 BPM GEMUSE Atrial Rate 87 BPM GEMUSE P-R Interval 138 ms GEMUSE QRS Duration 84 ms GEMUSE Q-T Interval 402 ms GEMUSE QTc 483 ms GEMUSE P Wave Winfield 59 degrees GEMUSE R Winfield 42 degrees GEMUSE T Winfield 19 degrees GEMUSE ECG Interpretation Normal sinus rhythm Nonspecific T wave abnormality Abnormal ECG When compared with ECG of 02-JUL-2023 07:10, ST no longer elevated in Anterior leads T wave inversion now evident in Inferior leads T wave inversion now evident in Anterior leads Confirmed by WILLIAM MIGUEL ([id number]) on 06/21/2025 4:34:50 PM GEMUSE 06/20/2025 3:02 AM EDT 06/21/2025 4:34 PM EDT us Kasey Wilks MD ECG ORDERABLES Final Result GEMUSE * (ABNORMAL) Manual differential (06/20/2025 3:00 AM EDT) Neutrophils % 39.0 % LAB HEMETOLOGY METHOD 06/20/2025 3:58 AM EDT [facility] Lymphocytes % 49.0 % LAB HEMETOLOGY METHOD 06/20/2025 3:58 AM EDT [facility] Reactive Lymphocyte 7.00 % LAB HEMETOLOGY METHOD 06/20/2025 3:58 AM [facility] Monocytes % 3.0 % LAB HEMETOLOGY METHOD 06/20/2025 3:58 AM EDT [facility] Eosinophils % 2.0 % LAB HEMETOLOGY METHOD 06/20/2025 3:58 AM EDT [facility] Basophils % 1.0 % LAB HEMETOLOGY METHOD 06/20/2025 3:58 AM EDT [facility] Neutrophils Absolute Manual 4.52 1.50 - 7.00 K/mcL LAB HEMETOLOGY METHOD 06/20/2025 3:58 [facility] Lymphocytes Absolute 5.68(H) 1.00 - 5.00 K/mcL LAB HEMETOLOGY METHOD 06/20/2025 3:58 AM EDT [facility] Reactive Lymph Abs Manual 0.81(H) 0.00 - 0.00 lym LAB HEMETOLOGY METHOD 06/20/2025 3:58 AM EDT [facility] Monocytes Absolute Manual 0.35 0.20 - 1.00 K/mcL LAB HEMETOLOGY METHOD 06/20/2025 3:58 AM EDT [facility] Eosinophils Absolute Manual 0.23 0.00 - 0.50 K/[facility] LAB HEMETOLOGY METHOD 06/20/2025 3:58 AM EDT [facility] Basophils Absolute Manual 0.12 0.00 - 0.20 K/[facility] LAB HEMETOLOGY METHOD 06/20/2025 3:58 AM EDT [facility] Rbc Morphology Consistent with indices Consistent with indices, Normal for LAB HEMETOLOGY METHOD 06/20/2025 3:58 AM EDT [facility] Comment:RBC: Morphology agre es with CBC Platelet Morphology - WAM See Note(A) Normal LAB HEMETOLOGY METHOD 06/20/2025 3:58 AM EDT [facility] Comment:PLT: Large platelets seen Blood Venous blood specimen / Unknown Venipuncture / Unknown 06/20/2025 3:00 AM EDT 06/20/2025 3:03 AM EDT us Kasey Wilks MD LAB BLOOD ORDERABLES Final Res ult [facility] [address] [place] [address], * (ABNORMAL) CBC auto differential (06/20/2025 3:00 AM EDT) WBC 11.6(H) 4.8 - 10.8 K/mcL LAB HEMETOLOGY METHOD 06/20/2025 3:58 AM EDT [facility] RBC 4.70 3.80 - 4.80 M/mcL LAB HEMETOLOGY METHOD 06/20/2025 3:58 AM T [facility] Hemoglobin 14.2 11.5 - 16.0 g/dL LAB HEMETOLOGY METHOD 06/20/2025 3:58 AM [facility] Hematocrit 40.7 35.0 - 47.0 % LAB HEMETOLOGY METHOD 06/20/2025 3:58 AM [facility] MCV 85.9 79.0 - 98.0 FL LAB HEMETOLOGY METHOD 06/20/2025 3:58 AM [facility] MCH 30.0 27.0 - 32.0 pcg LAB HEMETOLOGY METHOD 06/20/2025 3:58 AM [facility] MCHC 34.9 32.0 - 37.0 g/dL LAB HEMETOLOGY METHOD 06/20/2025 3:58 AM [facility] RDW 12.2 11.0 - 15.0 % LAB HEMETOLOGY METHOD 06/20/2025 3:58 AM [facility] Platelets 401(H) 130 - 400 K/mcL LAB HEMETOLOGY METHOD 06/20/2025 3:58 AM [facility] MPV 9.2 7.0 - 11.0 FL LAB HEMETOLOGY METHOD 06/20/2025 3:58 AM [facility] NRBC 0.0 <1.0 % LAB HEMETOLOGY METHOD 06/20/2025 3:58 AM [facility] NRBC Absolute 0.00 <0.10 K/mcL LAB HEMETOLOGY METHOD 06/20/2025 3:58 AM [facility] Blood Venous blood specimen / Unknown Venipuncture / Unknown 06/20/2025 3:00 AM EDT 06/20/2025 3:03 AM EDT us Kasey Wilks MD LAB BLOOD ORDERABLES Final Res ult [facility] [address] [place] [address], [place] [phone] * (ABNORMAL) Comprehensive metabolic panel (06/20/2025 3:00 AM EDT) Sodium 140 133 - 145 mmol/L LAB CHEMISTRY METHOD 06/20/2025 4:21 AM [facility] Potassium 2.7(LL) 3.5 - 5.5 mmol/L LAB CHEMISTRY METHOD 06/20/2025 4:21 AM [facility] Chloride 99 96 - 110 mmol/L LAB CHEMISTRY METHOD 06/20/2025 4:21 AM [facility] CO2 26 21 - 32 mmol/L LAB CHEMISTRY METHOD 06/20/2025 4:21 AM [facility] Anion Gap 15(H) 3 - 11 LAB CHEMISTRY METHOD 06/20/2025 4:21 AM [facility] Glucose 307(H) 70 - 100 mg/dL LAB CHEMISTRY METHOD 06/20/2025 4:21 AM [facility] BUN 5 5 - 25 mg/dL LAB CHEMISTRY METHOD 06/20/2025 4:21 AM [facility] Creatinine 0.64 0.50 - 1.10 mg/dL LAB CHEMISTRY METHOD 06/20/2025 4:21 AM [facility] eGFR 123 >=60 mL/min/1. 73m2 LAB CHEMISTRY METHOD 06/20/2025 4:21 AM [facility] Comment:Calculation based on the Chronic Kidney Disease Epidemiology Collaboration (CKD-EPI) equation refit without adjustment for race. BUN/Creatinine Ratio 7.8 LAB CHEMISTRY METHOD 06/20/2025 4:21 AM [facility] Calcium 9.2 8.5 - 10.5 mg/dL LAB CHEMISTRY METHOD 06/20/2025 4:21 AM [facility] AST (SGOT) 17 10 - 42 unit/L LAB CHEMISTRY METHOD 06/20/2025 4:21 AM [facility] ALT (SGPT) 22 10 - 60 unit/L LAB CHEMISTRY METHOD 06/20/2025 4:21 AM [facility] Alkaline Phosphatase 125(H) 42 - 121 unit/L LAB CHEMISTRY METHOD 06/20/2025 4:21 AM [facility] Total Protein 7.5 6.0 - 8.0 g/dL LAB CHEMISTRY METHOD 06/20/2025 4:21 AM [facility] Albumin 3.9 3.2 - 5.0 g/dL LAB CHEMISTRY METHOD 06/20/2025 4:21 AM [facility] Total Bilirubin 0.2 0.0 - 1.4 mg/dL LAB CHEMISTRY METHOD 06/20/2025 4:21 AM [facility] Blood Venous blood specimen / Unknown Venipuncture / Unknown 06/20/2025 3:00 AM EDT 06/20/2025 3:03 AM EDT us Kasey Wilks MD LAB BLOOD ORDERABLES Final Res ult [facility] [address] [place] [address], * (ABNORMAL) Lipase (06/20/2025 3:00 AM EDT) Lipase 10(L) 13 - 75 unit/L LAB CHEMISTRY METHOD 06/20/2025 3:30 AM EDT [facility] Blood Venous blood specimen / Unknown Venipuncture / Unknown 06/20/2025 3:00 AM EDT 06/20/2025 3:03 AM EDT Kasey Wilks MD LAB BLOOD ORDERABLES Final Res ult Performing Organization Address [facility]/ZIP Co de Phone Number [facility] [address] [place] [address], [place] [phone] * (ABNORMAL) Magnesium (06/20/2025 3:00 AM EDT) Magnesium 1.8(L) 1.9 - 2.6 mg/dL LAB CHEMISTRY METHOD 06/20/2025 3:30 AM EDT [facility] Blood Venous blood specimen / Unknown Venipuncture / Unknown 06/20/2025 3:00 AM EDT 06/20/2025 3:03 AM EDT us Kasey Wilks MD LAB BLOOD ORDERABLES Final Res ult Performing Organization Address [facility]/RUST de Phone Number [facility] [address] [place] [address], [place] [phone] * (ABNORMAL) Ethanol (06/20/2025 3:00 AM EDT) [facility] Ethanol Level 307(H) 0 - 10 mg/dL LAB CHEMISTRY METHOD 06/20/2025 4:00 AM EDT [facility] Blood Venous blood specimen / Unknown Venipuncture / Unknown 06/20/2025 3:00 AM EDT 06/20/2025 3:03 AM EDT Kasey Wilks MD LAB BLOOD ORDERABLES Final Res ult Performing Organization Address [facility]/ZIP Co de Phone Number [facility] [address] [place] [address], [place] [phone] * (ABNORMAL) POCT Glucose, blood (06/20/2025 2:58 AM EDT) Glucose POCT 304(H) 70 - 100 mg/dL 06/20/2025 2:58 AM EDT [facility] Blood Capillary blood specimen / Unknown 06/20/2025 2:58 AM EDT 06/20/2025 2:59 AM EDT Kasey Wilks MD LAB POINT OF CARE TE ST DOCKED DEVICE UNSOLICITED RESULTS Final Result [facility] [address] [place] [address], [place] [phone] documented in this encounter Visit Diagnoses Diagnosis Hypokalemia- Primary Hypopotassemia Hypomagnesemia Disorders of magnesium metabolism Acute alcoholic intoxication without complication (CMS/HCC V24) Generalized abdominal pain Abdominal pain, generalized Alcohol use disorder documented in this encounter Administered Medications Inactive Administered Medications - up to 3 most recent administrations Medication Order MAR Action Action Date Dose Rate Site LORazepam (ATIVAN) injection 0.5 mg 0.5 mg, intravenous, Once, On Fri06/20/25 at 0342, For 1 dose, Prior to IV use, lorazepam injection should be DILUTED with an equal volume of compatible solution; Rate of administration should NOT exceed 2 mg/min. Given 06/20/2025 3:50 AM EDT 0.5 mg magnesium oxide (MAG-OX) tablet 400 mg 400 mg, oral, Once, On Fri06/20/25 at 0543, For 1 dose Given 06/20/2025 5:48 AM EDT 400 mg ondansetron (PF) (ZOFRAN) injection 4 mg 4 mg, intravenous, Once, On Fri06/20/25 at 0611, For 1 dose Given 06/20/2025 6:26 AM EDT 4 mg PHENobarbital injection 130 mg 130 mg, intravenous, Once, On Fri06/20/25 at 0611, For 1 dose, Administer no faster than 1 mg/kg/minute, to a max of 60 mg/min in adults. Given 06/20/2025 6:26 AM EDT 130 mg PHENobarbital injection 180.7 mg 180.7 mg (rounded from 180.51 mg = 3.3 mg/kg 54.7 kg [place] weight), intramuscular, Every 3 hours, First dose on Fri06/20/25 at 0731, For 3 doses Given 06/20/2025 7:42 AM EDT 180.7 mg Left Anterior Thigh potassium chloride (KLOR-CON M20) CR tablet 40 mEq 40 mEq, oral, Once, On Fri06/20/25 at 0543, For 1 dose, Tablet may be swallowed whole (do not crush/chew/suck on) OR broken in half and each half swallowed separately OR dissolved (whole tablet) in ~4 ounces of water (allow ~2 minutes to dissolve, stir well and administer immediately). Given 06/20/2025 5:48 AM EDT 40 mEq potassium chloride 10 mEq/100 mL IVPB 10 mEq 10 mEq, intravenous, at 100 mL/hr, Administer over 1 Hours, Every 1 hour, First dose on Fri06/20/25 at 0543, For 2 doses Restarted 06/20/2025 6:31 AM EDT 100 mL/hr New Bag 06/20/2025 5:48 AM EDT 10 mEq 100 mL/hr sodium chloride 0.9 % bolus 1,000 mL 1,000 mL, intravenous, at 1,000 mL/hr, Administer over 1 Hours, Once, On Fri06/20/25 at 0544, For 1 dose New Bag 06/20/2025 6:28 AM EDT 1,000 mL 1000 mL/hr documented in this encounter Active and Recently Administered Medications Times are shown in EDT. Scheduled Medication Order 06/18/2025 06/19/2025 06/20/2025 LORazepam (ATIVAN) injection 0.5 mg (COMPLETED) 0.5 mg, intravenous, Once, On Fri06/20/25 at 0342, For 1 dose, Prior to IV use, lorazepam injection should be DILUTED with an equal volume of compatible solution; Rate of administration should NOT exceed 2 mg/min. 0350 (Given - Provid er: Erika Cee RN) magnesium oxide (MAG-OX) tablet 400 mg (COMPLETED) 400 mg, oral, Once, On Fri06/20/25 at 0543, For 1 dose 0548 (Given - Provid er: Erika Cee RN) ondansetron (PF) (ZOFRAN) injection 4 mg (COMPLETED) 4 mg, intravenous, Once, On Fri06/20/25 at 0611, For 1 dose 0626 (Given - Provid er: Erika Cee RN) PHENobarbital injection 130 mg (COMPLETED) 130 mg, intravenous, Once, On Fri06/20/25 at 0611, For 1 dose, Administer no faster than 1 mg/kg/minute, to a max of 60 mg/min in adults. 0626 (Given - Provid er: Erika Cee RN) PHENobarbital injection 180.7 mg (CANCELED) 180.7 mg (rounded from 180.51 mg = 3.3 mg/kg 54.7 kg [place] weight), intramuscular, Every 3 hours, First dose on Fri06/20/25 at 0731, For 3 doses 0742 (Given - Provid er: Latricia Velazco, DILIP) potassium chloride (KLOR-CON M20) CR tablet 40 mEq (COMPLETED) 40 mEq, oral, Once, On Fri06/20/25 at 0543, For 1 dose, Tablet may be swallowed whole (do not crush/chew/suck on) OR broken in half and each half swallowed separately OR dissolved (whole tablet) in ~4 ounces of water (allow ~2 minutes to dissolve, stir well and administer immediately). 0548 (Given - Provid er: Erika Cee RN) potassium chloride 10 mEq/100 mL IVPB 10 mEq 10 mEq, intravenous, at 100 mL/hr, Administer over 1 Hours, Every 1 hour, First dose on Fri06/20/25 at 0543, For 2 doses 0548 (New Bag - Prov ider: Erika Cee RN)0605 (Paused - Provider: Erika Cee RN)0631 (Restarted - Provider: Erika Cee RN)0813 (Stopped - Provider: Latricia Velazco, DILIP)0823 (Not Given - Provider: Latricia Velazco RN - Reason: See Provider Order - Comment: provider discontinued order) sodium chloride 0.9 % bolus 1,000 mL (COMPLETED) 1,000 mL, intravenous, at 1,000 mL/hr, Administer over 1 Hours, Once, On Fri06/20/25 at 0544, For 1 dose 0628 (New Bag - Prov ider: Erika Cee RN)0921 (Stopped - Provider: Latricia Velazco RN) documented in this encounter Orders Medications Ordered That Cristofer ht Not Have Been Administered Count Last Ordered Date First Ordered Date PHENobarbital injection 130 mg 1 06/20/2025 documented in this encounter Care Teams Press Machine Feeder Relationship Specialty Start Date End Date Physician, No Pcp PCP - General 05/17/25 documented as of this encounter
--- OUTSIDE RECORDS SUMMARY | 2025-06-23 13:52 | XMS_ITS | Encounter Summary ---
Author Organization [employer] [facility] Address [address] [place] [address] Care Team Providers Care Tank Crewmember Name Role Phone Unavailable Primary Care Provider Unavailabl e Encounter Details Date Type Department Care Team (Late st Contact Info) Description 06/21/2025 Population Health Risk Score [facility] Care [facility] (C3) Department [address] [facility] [address] [place] [address] Provider, Population Health Generic Social History Tobacco Use Types Packs/Day Years Used Date Smoking Tobacco: Never Assessed Comments Unknown Sex and Gender Information Value Date Recorded Sex Assigned at Not on file Legal Sex Female 9:28 PM EDT Gender Identity Not on file Sexual Orientation Not on file documented as of this encounter Plan of Treatment Not on file documented as of this encounter Visit Diagnoses Not on filedocumented in this encounter
--- OUTSIDE RECORDS SUMMARY | 2025-06-23 13:52 | XMS_ITS | Encounter Summary ---
Author Organization [facility] Address [address] [place] [address] Care Team Providers Care Brick Tender Name Role Phone Unavailable Primary Care Provider Unavailabl e Reason for Visit * Reason Comments Care Coordination Encounter Details Date Type Department Care Team (Late st Contact Info) Description 06/20/2025 Interim Notes [facility] [address] [place] [id number] Rosemary Lam [address] [place] [id number] Social History Tobacco Use Types Packs/Day Years [...] on file documented as of this encounter Progress Notes * Rosemary Lam - 06/20/2025 1:08 PM EDT Patient identified through ADT feed. Patient admitted 06/16/25 and discharged 06/16/25 from [facility]. Patient is on the wait list for a new patient appointment. documented in this encounter Plan of Treatment Not on file documented as of this encounter Visit Diagnoses Not on filedocumented in this encounter
[2025-06-23 13:55] VITALS: BP 122/68; PULSE 82; RESP 16; TEMP 36.8; O2SAT 98
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
[2025-06-23 15:44] VITALS: BMI 26.0
--- NOTE | 2025-06-23 17:03 | PC.NURSE ---
Pt states that she had a phone (iphone, white case) brought in with her. She states that [facility] took it from her beacause she was suicidal . The phone did not come up with her to . This underwriter solicitation director called [facility] and asked about the phone. Staff stated that they will look and get back to this underwriter solicitation director.
[2025-06-23 17:09] LABS: Glucose, Whole Blood 393 mg/dL (60-115)
--- NOTE | 2025-06-23 19:14 | PC.NURSE ---
Pt signed a 3 day notice just now.
[2025-06-23 20:00] VITALS: BP 140/91; PULSE 87; TEMP 37; O2SAT 98
[2025-06-23 20:03] LABS: Glucose, Whole Blood 397 mg/dL (60-115)
[2025-06-23] MEDS: Insulin Glargine,Hum.rec.anlog 100 UNIT/ML 10 ML VIAL 10 UNIT SUBCUT (22:01)
[2025-06-23 23:20] LABS: Glucose, Whole Blood 293 mg/dL (60-115)
[2025-06-24 08:00] VITALS: BP 117/69; PULSE 94; RESP 18; TEMP 36.3; O2SAT 98
[2025-06-24 08:20] LABS: Glucose, Whole Blood 300 mg/dL (60-115)
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
[2025-06-24 11:54] LABS: Glucose, Whole Blood 342 mg/dL (60-115)
[2025-06-24] MEDS: OLANZapine ODT 10 MG TAB.RAPDIS TRANSLINGU (13:54)
[2025-06-24 15:02] VITALS: BP 140/83
[2025-06-24 17:19] LABS: Glucose, Whole Blood 298 mg/dL (60-115)
[2025-06-24 20:00] VITALS: BP 125/82; PULSE 102; RESP 16; TEMP 37.2; O2SAT 98
[2025-06-24] MEDS: Insulin Glargine,Hum.rec.anlog 100 UNIT/ML 10 ML VIAL 10 UNIT SUBCUT (20:49)
[2025-06-24 22:18] LABS: Glucose, Whole Blood 295 mg/dL (60-115)
[2025-06-25 01:49] VITALS: BP 130/70
[2025-06-25 08:20] LABS: Glucose, Whole Blood 228 mg/dL (60-115)
[2025-06-25 08:22] VITALS: BP 117/56; PULSE 86; TEMP 36.6; O2SAT 99
[2025-06-25 12:12] LABS: Glucose, Whole Blood 341 mg/dL (60-115)
[2025-06-25 17:04] LABS: Glucose, Whole Blood 224 mg/dL (60-115)
--- NOTE | 2025-06-25 19:06 | HO.PSYCHPN ---
Subjective Subjective Date of Service: 06/25/25 Reason For Visit: SI Subjective Notes: Conditional Voluntary Interim History: Active on unit. social with select peers. appears sedated. Patient reports feeling anxious and depressed; pt stated, I'm not ready to go home. I want to stay here for a month . denies SI/HI/VH/AH. Continue current tx plan. Medication Compliance: Yes Side effects from medications: No Mental Status Exam Mental Status Exam Patient Appearance: Appropriate Patient Orientation: Person, Place, Time and Situation Level of Consciousness: Sedated Patient Behavior: Cooperative Mood Description: Anxious Affect Description: Constricted Ability to Follow Directions: Good Speech Pattern: Clear Memory Description: Intact Hallucinations: None Delusions: Not Present Thought Process: Intact Thought Content: positive for Intact Diagnostics Vital Signs (24Hr): Vital Signs - 24 hr 06/24/25 20:00 06/25/25 01:49 06/25/25 08:22 Temperature 98.9 F 97.9 F Pulse Rate 102 H 86 Respiratory Rate 16 Blood Pressure 125/82 130/70 117/56 L Pulse Oximetry 98 99 Oxygen Delivery Method Room Air Room Air BMI result Body Mass Index 26.0 Labs Labs: Laboratory Results - last 48 hr 06/23/25 06/23/25 06/24/25 19:58 23:12 08:09 POC Glucose 397 H* 293 H 300 H 06/24/25 06/24/25 06/24/25 11:43 17:15 20:23 POC Glucose 342 H 298 H 295 H 06/25/25 06/25/25 06/25/25 08:16 12:07 16:56 POC Glucose 228 H 341 H 224 H Medications Medications Current Medications Acetaminophen (Acetaminophen 325 Mg Tablet) 650 mg PO Q6H PRN PRN Reason: Headache/Pain, Scale 1-10 Last Admin: 06/23/25 22:16 Dose: 650 mg Al Hydroxide/Mg Hydroxide (Magnesium Hydrox/Alum Hydrox 30 Ml Oral.Susp) 30 ml PO Q6H PRN PRN Reason: Heartburn/Nausea Clonidine HCl (Clonidine Hcl 0.1 Mg Tablet) 0.1 mg PO Q4H PRN; Protocol PRN Reason: moderate anxiety Last Admin: 06/25/25 01:49 Dose: 0.1 mg Clonidine HCl (Clonidine Hcl 0.1 Mg Tablet) 0.1 mg PO TID KATHY; Protocol Last Admin: 06/25/25 15:12 Dose: 0.1 mg Diazepam (Diazepam 5 Mg Tablet) 10 mg PO TID [facility] Stop: 06/26/25 23:00 Last Admin: 06/25/25 15:13 Dose: 10 mg Diazepam (Diazepam 5 Mg Tablet) 10 mg PO BID [facility] Gabapentin (Gabapentin 400 Mg Capsule) 800 mg PO TID [facility] Last Admin: 06/25/25 15:14 Dose: 800 mg Hydroxyzine HCl (Hydroxyzine Hcl 25 Mg Tablet) 25 mg PO Q6H PRN PRN Reason: mild anxiety Last Admin: 06/25/25 18:45 Dose: 25 mg Insulin Glargine (Insulin Glargine,Hum.Rec.Anlog 100 Unit/Ml 10 Ml Vial) 10 unit SUBCUT BEDTIME [facility] Last Admin: 06/24/25 20:49 Dose: 10 unit Insulin Human Lispro (Insulin Lispro 100 Unit/Ml 3 Ml Vial) 0 unit SUBCUT QIDACHS [facility]; Protocol Last Admin: 06/25/25 17:30 Dose: 4 unit Loperamide HCl (Loperamide Hcl 2 Mg Capsule) 2 mg PO Q6H PRN PRN Reason: Loose Stool Last Admin: 06/25/25 18:46 Dose: 2 mg Magnesium Hydroxide (Milk Of Magnesia 30 Ml Oral.Susp) 30 ml PO DAILY PRN PRN Reason: Constipation Melatonin (Melatonin 3 Mg Tablet) 6 mg PO BEDTIME PRN PRN Reason: Insomnia Last Admin: 06/25/25 01:48 Dose: 6 mg Metformin HCl (Metformin Hcl 500 Mg Tablet) 500 mg PO BIDWM [facility] Last Admin: 06/25/25 17:49 Dose: 500 mg Multivitamins/Vitamin C (Multivitamin Tablet) 1 tab PO DAILY [facility] Last Admin: 06/25/25 09:16 Dose: 1 tab Nicotine (Nicotine 21 Mg Patch.Td24) 21 mg TRANSDERMA DAILY PRN PRN Reason: smoking cessation Nicotine Polacrilex (Nicotine Polacrilex 2 Mg Gum) 4 mg BUCCAL Q2H PRN PRN Reason: Nicotine Cravings Last Admin: 06/23/25 18:11 Dose: 4 mg Olanzapine (Olanzapine 10 Mg Tablet) 10 mg PO TID PRN PRN Reason: agitation Oxcarbazepine (Oxcarbazepine 300 Mg Tablet) 600 mg PO BID [facility] Last Admin: 06/25/25 09:15 Dose: 600 mg Trazodone HCl (Trazodone Hcl 100 Mg Tablet) 100 mg PO BEDTIME PRN PRN Reason: Insomnia Last Admin: 06/25/25 01:53 Dose: 100 mg Allergies Allergies Allergy/AdvReac Type Severity Reaction Status Date / Time SEAFOOD Allergy Unknown UNK Uncoded 06/20/25 11:31 Assessment & Plan Assessment & Plan (1) Bipolar disorder: Status: Acute Code(s): F31.9 - Bipolar disorder, unspecified (2) PTSD (post-traumatic stress disorder): Status: Acute Code(s): F43.10 - Post-traumatic stress disorder, unspecified (3) Alcohol use disorder: Status: Acute Code(s): F10.90 - Alcohol use, unspecified, uncomplicated (4) Diabetes: Status: Acute Code(s): E11.9 - Type 2 diabetes mellitus without complications Plan HPI: Patient is a 29-year-old female with history of recorded bipolar disorder, seizure disorder, PTSD, alcohol abuse who presents for suicidal statements in the face of alcohol relapse and psychosocial stressors; patient 1st admitted to the medical floor for detox with phenobarbital which she refused, saying she only wanted IV Valium; patient needed to be chemically restrained while on the medical floor. She now comes to the psychiatric unit. She is calm. Patient reports that she was sober for 2 years, going to meetings, taking medications, doing good... working and remained stable. However She had a miscarriage 3 weeks ago at 5 months and relapsed with alcohol drinking excessively; she presented to the ED on 06/11 for detox but left prematurely and continue drinking. About a week ago she found out her kids got adopted and patient became dysregulated, stopped taking all her medications. Patient acknowledges she did make a suicidal statement but reports she was not really suicidal and even though she said she would shoot herself she said she did not mean it, does not have a shot gun and just said it because I was mad.. Patient's father concurs that patient does not have access to a gun. Patient says she remains in withdrawal and wants Valium and says I want to feel sedated... Formulation/clinical reasoning: Patient guarded and irritable and difficult with which to engage. She is mostly focused on having Valium order increased. Review of chart indicates that patient has indeed been drinking for weeks, having presenting on 06/11 for detox and then again 9 days later; patient was treated on the medical floor for few days but refused phenobarbital. Director Personal spoke with hospitalist who did not think that patient was having much in the way of withdrawal symptoms however it is possible that she remains with residual withdraw symptoms from alcohol and so ticket writer agrees to increase Valium to 10 mg t.i.d. for several days and then taper off. Patient's potential need for benzos for detox is also easily confused with her desire to feel overly sedated to avoid upsetting thoughts; thus will schedule benzos. Regarding home medications of Trileptal and gabapentin, patient says that it does not help with anything, which contradicts her earlier statement that during her 2 years of sobriety she was doing well, stable, in good mood; it is most likely her current reporting is heavily influenced by the overwhelming sadness of having her children now irreversibly adopted. As patient stabilizes will continue to evaluate mood and medication management -on admission, patient was discovered to be diabetic with hemoglobin A1c of 13. Hospitalist team started on metformin and sliding scale; not sure if patient will be willing to adhere sliding scale post discharge PLAN: 3 day Q 15 Restarted Trileptal 600 mg b.i.d. (likely for seizure) Continued gabapentin 800 mg t.i.d.(likely for seizure) Continued clonidine 0.1 mg t.i.d. Newly started on metformin 500 mg b.i.d.; likely switch to long-acting Newly started on insulin sliding scale/Lantus 06/25: Active on unit. social with select peers. appears sedated. Patient reports feeling anxious and depressed; pt stated, I'm not ready to go home. I want to stay here for a month . denies SI/HI/VH/AH. Continue current tx plan. Patient educated on: diagnosis and medication risk/benefits Reason for continued inpatient stay Substantial Risk for: med/psych decompensation Time Spent With Patient Time: Total time managing care of this patient today _20___ minutes.
[2025-06-25 20:00] VITALS: BP 117/61; PULSE 100; RESP 16; TEMP 36.6; O2SAT 97
[2025-06-25 20:21] LABS: Glucose, Whole Blood 191 mg/dL (60-115)
[2025-06-25] MEDS: Insulin Glargine,Hum.rec.anlog 100 UNIT/ML 10 ML VIAL 10 UNIT SUBCUT (20:55)
[2025-06-26 08:00] VITALS: BP 103/53; PULSE 84; RESP 18; TEMP 36.6; O2SAT 98
[2025-06-26 08:02] LABS: Glucose, Whole Blood 193 mg/dL (60-115)
[2025-06-26 09:28] LABS: Alanine Aminotransferase 24 U/L (0-31); Albumin Level 4.0 g/dL (3.5-5.0); Alkaline Phosphatase 86 U/L (39-117); Anion Gap 12 (12-20); Aspartate Amino Transferase 23 U/L (5-31); Blood Urea Nitrogen 8 mg/dL (9-16); Calcium 9.2 mg/dL (8.4-10.2); Carbon Dioxide 26 mmol/L (22-29); Chloride 104 mmol/L (96-108); Cholesterol 189 mg/dL (<200); Creatinine Clr Calc Pharmacy 128.9; Creatinine Clr Calc Pharmacy 133.5; Estimated Glomerular Filt Rate > 60; HDL Cholesterol 70 mg/dL (>40); Hemoglobin A1C 391.3033 umol/L; Potassium 4.0 mmol/L (3.3-5.1); Sodium 138 mmol/L (135-145); Total Hemoglobin (HGBA1C) 3276.1483 umol/L; Total Protein 6.9 g/dL (6.5-8.0); Triglycerides 76 mg/dL (<150)
[2025-06-26 09:41] VITALS: BP 112/61
[2025-06-26 12:09] LABS: Glucose, Whole Blood 298 mg/dL (60-115)
[2025-06-26 14:11] VITALS: BP 125/84
[2025-06-26 17:15] LABS: Glucose, Whole Blood 185 mg/dL (60-115)
[2025-06-26 19:53] VITALS: BP 126/65; PULSE 88; TEMP 36.9; O2SAT 99
[2025-06-26 20:34] LABS: Glucose, Whole Blood 359 mg/dL (60-115)
--- NOTE | 2025-06-26 20:35 | P.PNPSI_ITS ---
Subjective Subjective Date of Service: 06/26/25 Reason For Visit: SI Interim History: Active on unit. social with select peers. attending groups. Patient reports feeling anxious because she is not near my dad . She reports sleeping well last night. denies SI/HI/VH/AH. Continue current tx plan. Medication Compliance: Yes Side effects from medications: No Attending Groups: Yes Mental Status Exam Mental Status Exam Patient Appearance: Appropriate Patient Orientation: Person, Place, Time and Situation Level of Consciousness: Sedated Patient Behavior: Cooperative Mood Description: Anxious Affect Description: Constricted Ability to Follow Directions: Good Speech Pattern: Clear Memory Description: Intact Hallucinations: None Delusions: Not Present Thought Process: Intact Thought Content: positive for Intact Diagnostics Vital Signs (24Hr): Vital Signs - 24 hr 06/26/25 08:00 06/26/25 09:41 06/26/25 14:11 Temperature 97.9 F Pulse Rate 84 Respiratory Rate 18 Blood Pressure 103/53 L 112/61 125/84 Pulse Oximetry 98 Oxygen Delivery Method Room Air 06/26/25 19:53 Temperature 98.4 F Pulse Rate 88 Respiratory Rate Blood Pressure 126/65 Pulse Oximetry 99 Oxygen Delivery Method Room Air BMI result Body Mass Index 26.0 Labs 06/26/25 08:23 Labs: Laboratory Results - last 48 hr 06/24/25 06/25/25 06/25/25 20:23 08:16 12:07 Sodium Potassium Chloride Carbon Dioxide Anion Gap BUN Creatinine Estim Creat Clear Calc Estimated GFR POC Glucose 295 H 228 H 341 H Random Glucose Estimat Average Glucose Hemoglobin A1c % Calcium Total Bilirubin AST ALT Alkaline Phosphatase Total Protein Albumin Triglycerides Cholesterol LDL Cholesterol, Calc HDL Cholesterol 06/25/25 06/25/25 06/26/25 16:56 20:15 07:58 Sodium Potassium Chloride Carbon Dioxide Anion Gap BUN Creatinine Estim Creat Clear Calc Estimated GFR POC Glucose 224 H 191 H 193 H Random Glucose Estimat Average Glucose Hemoglobin A1c % Calcium Total Bilirubin AST ALT Alkaline Phosphatase Total Protein Albumin Triglycerides Cholesterol LDL Cholesterol, Calc HDL Cholesterol 06/26/25 06/26/25 06/26/25 08:23 08:23 08:23 Sodium 138 Potassium 4.0 Chloride 104 Carbon Dioxide 26 Anion Gap 12 BUN 8 L Creatinine 0.59 0.57 Estim Creat Clear Calc 128.9 133.5 Estimated GFR > 60 POC Glucose Random Glucose Estimat Average Glucose Hemoglobin A1c % Calcium Total Bilirubin AST ALT Alkaline Phosphatase Total Protein Albumin Triglycerides Cholesterol LDL Cholesterol, Calc HDL Cholesterol 06/26/25 06/26/25 06/26/25 08:23 12:06 17:12 Sodium Potassium Chloride Carbon Dioxide Anion Gap BUN Creatinine Estim Creat Clear Calc Estimated GFR > 60 POC Glucose 298 H 185 H Random Glucose 190 H Estimat Average Glucose 329 Hemoglobin A1c % 13.1 H Calcium 9.2 D Total Bilirubin 0.2 AST 23 ALT 24 Alkaline Phosphatase 86 Total Protein 6.9 Albumin 4.0 Triglycerides 76 Cholesterol 189 LDL Cholesterol, Calc 104 H HDL Cholesterol 70 Medications Medications Current Medications Acetaminophen (Acetaminophen 325 Mg Tablet) 650 mg PO Q6H PRN PRN Reason: Headache/Pain, Scale 1-10 Last Admin: 06/23/25 22:16 Dose: 650 mg Al Hydroxide/Mg Hydroxide (Magnesium Hydrox/Alum Hydrox 30 Ml Oral.Susp) 30 ml PO Q6H PRN PRN Reason: Heartburn/Nausea Clonidine HCl (Clonidine Hcl 0.1 Mg Tablet) 0.1 mg PO Q4H PRN; Protocol PRN Reason: moderate anxiety Last Admin: 06/25/25 23:50 Dose: 0.1 mg Clonidine HCl (Clonidine Hcl 0.1 Mg Tablet) 0.1 mg PO TID [facility]; Protocol Last Admin: 06/26/25 14:11 Dose: 0.1 mg Diazepam (Diazepam 5 Mg Tablet) 10 mg PO TID [facility] Stop: 06/26/25 23:00 Last Admin: 06/26/25 14:11 Dose: 10 mg Diazepam (Diazepam 5 Mg Tablet) 10 mg PO BID KATHY Gabapentin (Gabapentin 400 Mg Capsule) 800 mg PO TID [facility] Last Admin: 06/26/25 14:11 Dose: 800 mg Hydroxyzine HCl (Hydroxyzine Hcl 25 Mg Tablet) 25 mg PO Q6H PRN PRN Reason: mild anxiety Last Admin: 06/25/25 18:45 Dose: 25 mg Insulin Glargine (Insulin Glargine,Hum.Rec.Anlog 100 Unit/Ml 10 Ml Vial) 10 unit SUBCUT BEDTIME [facility] Last Admin: 06/25/25 20:55 Dose: 10 unit Insulin Human Lispro (Insulin Lispro 100 Unit/Ml 3 Ml Vial) 0 unit SUBCUT QIDACHS [facility]; Protocol Last Admin: 06/26/25 17:36 Dose: 2 unit Loperamide HCl (Loperamide Hcl 2 Mg Capsule) 2 mg PO Q6H PRN PRN Reason: Loose Stool Last Admin: 06/25/25 18:46 Dose: 2 mg Magnesium Hydroxide (Milk Of Magnesia 30 Ml Oral.Susp) 30 ml PO DAILY PRN PRN Reason: Constipation Melatonin (Melatonin 3 Mg Tablet) 6 mg PO BEDTIME PRN PRN Reason: Insomnia Last Admin: 06/25/25 23:49 Dose: 6 mg Metformin HCl (Metformin Hcl 500 Mg Tablet) 500 mg PO BIDWM [facility] Last Admin: 06/26/25 17:35 Dose: 500 mg Multivitamins/Vitamin C (Multivitamin Tablet) 1 tab PO DAILY [facility] Last Admin: 06/26/25 09:41 Dose: 1 tab Nicotine (Nicotine 21 Mg Patch.Td24) 21 mg TRANSDERMA DAILY PRN PRN Reason: smoking cessation Nicotine Polacrilex (Nicotine Polacrilex 2 Mg Gum) 4 mg BUCCAL Q2H PRN PRN Reason: Nicotine Cravings Last Admin: 06/23/25 18:11 Dose: 4 mg Olanzapine (Olanzapine 10 Mg Tablet) 10 mg PO TID PRN PRN Reason: agitation Oxcarbazepine (Oxcarbazepine 300 Mg Tablet) 600 mg PO BID [facility] Last Admin: 06/26/25 09:40 Dose: 600 mg Trazodone HCl (Trazodone Hcl 100 Mg Tablet) 100 mg PO BEDTIME PRN PRN Reason: Insomnia Last Admin: 06/25/25 23:49 Dose: 100 mg Allergies Allergies Allergy/AdvReac Type Severity Reaction Status Date / Time SEAFOOD Allergy Unknown UNK Uncoded 06/20/25 11:31 Assessment & Plan Assessment & Plan (1) Bipolar disorder: Status: Acute Code(s): F31.9 - Bipolar disorder, unspecified (2) PTSD (post-traumatic stress disorder): Status: Acute Code(s): F43.10 - Post-traumatic stress disorder, unspecified (3) Alcohol use disorder: Status: Acute Code(s): F10.90 - Alcohol use, unspecified, uncomplicated (4) Diabetes: Status: Acute Code(s): E11.9 - Type 2 diabetes mellitus without complications Plan HPI: Patient is a 29-year-old female with history of recorded bipolar disorder, seizure disorder, PTSD, alcohol abuse who presents for suicidal statements in the face of alcohol relapse and psychosocial stressors; patient 1st admitted to the medical floor for detox with phenobarbital which she refused, saying she only wanted IV Valium; patient needed to be chemically restrained while on the medical floor. She now comes to the psychiatric unit. She is calm. Patient reports that she was sober for 2 years, going to meetings, taking medications, doing good... working and remained stable. However She had a miscarriage 3 weeks ago at 5 months and relapsed with alcohol drinking excessively; she presented to the ED on 06/11 for detox but left prematurely and continue drinking. About a week ago she found out her kids got adopted and patient became dysregulated, stopped taking all her medications. Patient acknowledges she did make a suicidal statement but reports she was not really suicidal and even though she said she would shoot herself she said she did not mean it, does not have a shot gun and just said it because I was mad.. Patient's father concurs that patient does not have access to a gun. Patient says she remains in withdrawal and wants Valium and says I want to feel sedated... Formulation/clinical reasoning: Patient guarded and irritable and difficult with which to engage. She is mostly focused on having Valium order increased. Review of chart indicates that patient has indeed been drinking for weeks, having presenting on 06/11 for detox and then again 9 days later; patient was treated on the medical floor for few days but refused phenobarbital. Boat Designer spoke with hospitalist who did not think that patient was having much in the way of withdrawal symptoms however it is possible that she remains with residual withdraw symptoms from alcohol and so ghost writer agrees to increase Valium to 10 mg t.i.d. for several days and then taper off. Patient's potential need for benzos for detox is also easily confused with her desire to feel overly sedated to avoid upsetting thoughts; thus will schedule benzos. Regarding home medications of Trileptal and gabapentin, patient says that it does not help with anything, which contradicts her earlier statement that during her 2 years of sobriety she was doing well, stable, in good mood; it is most likely her current reporting is heavily influenced by the overwhelming sadness of having her children now irreversibly adopted. As patient stabilizes will continue to evaluate mood and medication management -on admission, patient was discovered to be diabetic with hemoglobin A1c of 13. Hospitalist team started on metformin and sliding scale; not sure if patient will be willing to adhere sliding scale post discharge PLAN: 3 day Q 15 Restarted Trileptal 600 mg b.i.d. (likely for seizure) Continued gabapentin 800 mg t.i.d.(likely for seizure) Continued clonidine 0.1 mg t.i.d. Newly started on metformin 500 mg b.i.d.; likely switch to long-acting Newly started on insulin sliding scale/Lantus 06/25: Active on unit. social with select peers. appears sedated. Patient reports feeling anxious and depressed; pt stated, I'm not ready to go home. I want to stay here for a month . denies SI/HI/VH/AH. Continue current tx plan. 06/26: continue tx plan. Patient educated on: diagnosis and medication risk/benefits Reason for continued inpatient stay Substantial Risk for: med/psych decompensation Time Spent With Patient Time: Total time managing care of this patient today _20___ minutes.
[2025-06-26] MEDS: Insulin Glargine,Hum.rec.anlog 100 UNIT/ML 10 ML VIAL 10 UNIT SUBCUT (21:16)
[2025-06-26 23:17] LABS: Glucose, Whole Blood 177 mg/dL (60-115)
[2025-06-27 08:00] VITALS: BP 128/67; PULSE 92; RESP 18; TEMP 36.1; O2SAT 100
[2025-06-27 08:15] LABS: Glucose, Whole Blood 191 mg/dL (60-115)
--- NOTE | 2025-06-27 11:16 | P.PNPSI_ITS ---
Subjective Subjective Date of Service: 06/27/25 Reason For Visit: SI Interim History: met with patient; discussed with team; reviewed chart; family meeting with father talked about behaviors on unit; pt says she'll work on being in better control pt reiterated never actually suicidal; says only reason said shotgun was to make sure got admitted Pt confirms that on Gabapentin, Trileptal (and clonidine and prn Hydroxyzine) she was stable and mood was good and wants to continue; also no seizures for 2 years on these meds talked about her struggles with anger; discussed medication options and reviewed risks/side effects of antipsychotic Risperdal verses Prozac; patient agrees to start Risperdal regarding sobriety, she plans to go back to AA and asked for meeting locations; she wants Acamproset to help with cravings (reviewed risks/side-effects) discussed Diabetes and treatment; pt agrees that she will struggle to handle insulin at home and to be switched to PO medication regimen (consult placed) Mental Status Exam Mental Status Exam Narrative: Pt is alert and oriented; behavior is sometimes cooperative, friendly and calm, other times regressed and demanding; often overly flirtatious with various peers; patient is not in distress; dressed in casual attire adequate grooming and hygiene; mood is described as better and affect congruent, brighter; eye contact appropriate; Speech is mostly normal rate, volume and prosody; still a little mumbling; no psychomotor agitation/retardation present; thought process is organized and goal directed; Thought content is on tx, but also perseverative on seeing a male peer that was transferred to another floor; otherwise pertinent to relevant topics and without any delusional content, paranoid ideations or grandiosity; denies any SI/HI. Denies AVH and there is no evidence of perceptual disturbance. Patients insight and judgment mildly impaired but likely at baseline and adequate Diagnostics Vital Signs (24Hr): Vital Signs - 24 hr 06/26/25 14:11 06/26/25 19:53 06/27/25 08:00 Temperature 98.4 F 97 F Pulse Rate 88 92 Respiratory Rate 18 Blood Pressure 125/84 126/65 128/67 Pulse Oximetry 99 100 Oxygen Delivery Method Room Air Room Air BMI result Body Mass Index 26.0 Labs 06/26/25 08:23 Labs: Laboratory Results - last 48 hr 06/25/25 06/25/25 06/25/25 12:07 16:56 20:15 Sodium Potassium Chloride Carbon Dioxide Anion Gap BUN Creatinine Estim Creat Clear Calc Estimated GFR POC Glucose 341 H 224 H 191 H Random Glucose Estimat Average Glucose Hemoglobin A1c % Calcium Total Bilirubin AST ALT Alkaline Phosphatase Total Protein Albumin Triglycerides Cholesterol LDL Cholesterol, Calc HDL Cholesterol 06/26/25 06/26/25 06/26/25 07:58 08:23 08:23 Sodium 138 Potassium 4.0 Chloride 104 Carbon Dioxide 26 Anion Gap 12 BUN 8 L Creatinine 0.59 0.57 Estim Creat Clear Calc 128.9 Estimated GFR POC Glucose 193 H Random Glucose Estimat Average Glucose Hemoglobin A1c % Calcium Total Bilirubin AST ALT Alkaline Phosphatase Total Protein Albumin Triglycerides Cholesterol LDL Cholesterol, Calc HDL Cholesterol 06/26/25 06/26/25 06/26/25 08:23 08:23 12:06 Sodium Potassium Chloride Carbon Dioxide Anion Gap BUN Creatinine Estim Creat Clear Calc 133.5 Estimated GFR > 60 > 60 POC Glucose 298 H Random Glucose 190 H Estimat Average Glucose 329 Hemoglobin A1c % 13.1 H Calcium 9.2 D Total Bilirubin 0.2 AST 23 ALT 24 Alkaline Phosphatase 86 Total Protein 6.9 Albumin 4.0 Triglycerides 76 Cholesterol 189 LDL Cholesterol, Calc 104 H HDL Cholesterol 70 06/26/25 06/26/25 06/26/25 17:12 20:29 23:11 Sodium Potassium Chloride Carbon Dioxide Anion Gap BUN Creatinine Estim Creat Clear Calc Estimated GFR POC Glucose 185 H 359 H* 177 H Random Glucose Estimat Average Glucose Hemoglobin A1c % Calcium Total Bilirubin AST ALT Alkaline Phosphatase Total Protein Albumin Triglycerides Cholesterol LDL Cholesterol, Calc HDL Cholesterol 06/27/25 08:09 Sodium Potassium Chloride Carbon Dioxide Anion Gap BUN Creatinine Estim Creat Clear Calc Estimated GFR POC Glucose 191 H Random Glucose Estimat Average Glucose Hemoglobin A1c % Calcium Total Bilirubin AST ALT Alkaline Phosphatase Total Protein Albumin Triglycerides Cholesterol LDL Cholesterol, Calc HDL Cholesterol Medications Medications Current Medications Acetaminophen (Acetaminophen 325 Mg Tablet) 650 mg PO Q6H PRN PRN Reason: Headache/Pain, Scale 1-10 Last Admin: 06/23/25 22:16 Dose: 650 mg Al Hydroxide/Mg Hydroxide (Magnesium Hydrox/Alum Hydrox 30 Ml Oral.Susp) 30 ml PO Q6H PRN PRN Reason: Heartburn/Nausea Clonidine HCl (Clonidine Hcl 0.1 Mg Tablet) 0.1 mg PO Q4H PRN; Protocol PRN Reason: moderate anxiety Last Admin: 06/25/25 23:50 Dose: 0.1 mg Clonidine HCl (Clonidine Hcl 0.1 Mg Tablet) 0.1 mg PO TID [facility]; Protocol Last Admin: 06/27/25 08:28 Dose: 0.1 mg Diazepam (Diazepam 5 Mg Tablet) 10 mg PO BID [facility] Last Admin: 06/27/25 08:27 Dose: 10 mg Gabapentin (Gabapentin 400 Mg Capsule) 800 mg PO TID [facility] Last Admin: 06/27/25 08:27 Dose: 800 mg Hydroxyzine HCl (Hydroxyzine Hcl 25 Mg Tablet) 25 mg PO Q6H PRN PRN Reason: mild anxiety Last Admin: 06/25/25 18:45 Dose: 25 mg Insulin Glargine (Insulin Glargine,Hum.Rec.Anlog 100 Unit/Ml 10 Ml Vial) 10 unit SUBCUT BEDTIME [facility] Last Admin: 06/26/25 21:16 Dose: 10 unit Insulin Human Lispro (Insulin Lispro 100 Unit/Ml 3 Ml Vial) 0 unit SUBCUT QIDACHS [facility]; Protocol Last Admin: 06/27/25 08:27 Dose: 2 unit Loperamide HCl (Loperamide Hcl 2 Mg Capsule) 2 mg PO Q6H PRN PRN Reason: Loose Stool Last Admin: 06/25/25 18:46 Dose: 2 mg Magnesium Hydroxide (Milk Of Magnesia 30 Ml Oral.Susp) 30 ml PO DAILY PRN PRN Reason: Constipation Melatonin (Melatonin 3 Mg Tablet) 6 mg PO BEDTIME PRN PRN Reason: Insomnia Last Admin: 06/25/25 23:49 Dose: 6 mg Metformin HCl (Metformin Hcl 500 Mg Tablet) 500 mg PO BIDWM [facility] Last Admin: 06/27/25 08:28 Dose: 500 mg Multivitamins/Vitamin C (Multivitamin Tablet) 1 tab PO DAILY [facility] Last Admin: 06/27/25 08:27 Dose: 1 tab Nicotine (Nicotine 21 Mg Patch.Td24) 21 mg TRANSDERMA DAILY PRN PRN Reason: smoking cessation Nicotine Polacrilex (Nicotine Polacrilex 2 Mg Gum) 4 mg BUCCAL Q2H PRN PRN Reason: Nicotine Cravings Last Admin: 06/23/25 18:11 Dose: 4 mg Olanzapine (Olanzapine 10 Mg Tablet) 10 mg PO TID PRN PRN Reason: agitation Oxcarbazepine (Oxcarbazepine 300 Mg Tablet) 600 mg PO BID KATHY Last Admin: 06/27/25 08:27 Dose: 600 mg Trazodone HCl (Trazodone Hcl 100 Mg Tablet) 100 mg PO BEDTIME PRN PRN Reason: Insomnia Last Admin: 06/26/25 23:18 Dose: 100 mg Allergies Allergies Allergy/AdvReac Type Severity Reaction Status Date / Time SEAFOOD Allergy Unknown UNK Uncoded 06/20/25 11:31 Assessment & Plan Assessment & Plan (1) Bipolar disorder: Status: Acute Code(s): F31.9 - Bipolar disorder, unspecified (2) PTSD (post-traumatic stress disorder): Status: Acute Code(s): F43.10 - Post-traumatic stress disorder, unspecified (3) Alcohol use disorder: Status: Acute Code(s): F10.90 - Alcohol use, unspecified, uncomplicated (4) Diabetes: Status: Acute Code(s): E11.9 - Type 2 diabetes mellitus without complications Plan HPI: Patient is a 29-year-old female with history of recorded bipolar disorder, seizure disorder, PTSD, alcohol abuse who presents for suicidal statements in the face of alcohol relapse and psychosocial stressors; patient 1st admitted to the medical floor for detox with phenobarbital which she refused, saying she only wanted IV Valium; patient needed to be chemically restrained while on the medical floor. She now comes to the psychiatric unit. She is calm. Patient reports that she was sober for 2 years, going to meetings, taking medications, doing good... working and remained stable. However She had a miscarriage 3 weeks ago at 5 months and relapsed with alcohol drinking excessively; she presented to the ED on 06/11 for detox but left prematurely and continue drinking. About a week ago she found out her kids got adopted and patient became dysregulated, stopped taking all her medications. Patient acknowledges she did make a suicidal statement but reports she was not really suicidal and even though she said she would shoot herself she said she did not mean it, does not have a shot gun and just said it because I was mad.. Patient's father concurs that patient does not have access to a gun. Patient says she remains in withdrawal and wants Valium and says I want to feel sedated... Formulation/clinical reasoning: Patient guarded and irritable and difficult with which to engage. She is mostly focused on having Valium order increased. Review of chart indicates that patient has indeed been drinking for weeks, having presenting on 06/11 for detox and then again 9 days later; patient was treated on the medical floor for few days but refused phenobarbital. Research And Development Specialist spoke with hospitalist who did not think that patient was having much in the way of withdrawal symptoms however it is possible that she remains with residual withdraw symptoms from alcohol and so information writer agrees to increase Valium to 10 mg t.i.d. for several days and then taper off. Patient's potential need for benzos for detox is also easily confused with her desire to feel overly sedated to avoid upsetting thoughts; thus will schedule benzos. Regarding home medications of Trileptal and gabapentin, patient says that it does not help with anything, which contradicts her earlier statement that during her 2 years of sobriety she was doing well, stable, in good mood; it is most likely her current reporting is heavily influenced by the overwhelming sadness of having her children now irreversibly adopted. As patient stabilizes will continue to evaluate mood and medication management -on admission, patient was discovered to be diabetic with hemoglobin A1c of 13. Hospitalist team started on metformin and sliding scale; not sure if patient will be willing to adhere sliding scale post discharge Hospital course 06/25: Active on unit. social with select peers. appears sedated. Patient reports feeling anxious and depressed; pt stated, I'm not ready to go home. I want to stay here for a month . denies SI/HI/VH/AH. Continue current tx plan. 06/26: continue tx plan. 06/27 talked about behaviors on unit; will work on being in better control pt reiterated never actually suicidal; says only reason said shotgun was to make sure got admitted Pt confirms that on Gabapentin, Trileptal (and clonidine and prn Hydroxyzine) she was stable and mood was good and wants to continue; also no seizures for 2 years on these meds talked about her struggles with anger; discussed medication options and reviewed risks/side effects of antipsychotic Risperdal verses Prozac; patient agrees to start Risperdal (risperdal has more effect than prozac; also not sure if she does have bipolar, making prozac a little risky) regarding sobriety, she plans to go back to and asked for meeting locations; she wants Acamproset to help with cravings (reviewed risks/side-effects) discussed Diabetes and treatment; pt agrees that she will struggle to handle insulin at home and to be switched to PO medication regimen (consult placed) -patient retracted 3 day to stay for further treatment and aftercare set up PLAN: 3 day Q 15 Continue Trileptal 600 mg b.i.d. for seizure disorder Continue gabapentin 800 mg t.i.d. for seizure disorder e) Continued clonidine 0.1 mg t.i.d. Start Risperdal 0.5 mg b.i.d. Switching to metformin ER 1000 mg q.h.s.; will increase Consult into help switch patient to p.o. antihyperglycemic medications since patient does not seem capable of managing insulin Newly started on insulin sliding scale/Lantus Patient educated on: diagnosis, medication risk/benefits, substance abuse, therapeutic strategies and medical condition Informed Consent: understands Reason for continued inpatient stay Substantial Risk for: med/psych decompensation Time Spent With Patient Time: Total time managing care of this patient today ____ minutes.
[2025-06-27 12:51] LABS: Glucose, Whole Blood 268 mg/dL (60-115)
[2025-06-27 15:27] VITALS: BP 134/83
[2025-06-27 18:04] LABS: Glucose, Whole Blood 340 mg/dL (60-115)
[2025-06-27 20:00] VITALS: BP 109/69; PULSE 100; TEMP 36.8; O2SAT 96
[2025-06-27] MEDS: Magnesium Hydrox/Alum Hydrox 30 ML ORAL.SUSP PO (20:24)
[2025-06-27 20:41] LABS: Glucose, Whole Blood 230 mg/dL (60-115)
[2025-06-27] MEDS: Insulin Glargine,Hum.rec.anlog 100 UNIT/ML 10 ML VIAL 10 UNIT SUBCUT (23:08)
[2025-06-28 08:00] VITALS: BP 100/70; PULSE 85; RESP 16; TEMP 36.8; O2SAT 96
[2025-06-28 08:42] LABS: Glucose, Whole Blood 144 mg/dL (60-115)
[2025-06-28 08:48] VITALS: BP 100/70
[2025-06-28 11:48] LABS: Glucose, Whole Blood 210 mg/dL (60-115)
--- NOTE | 2025-06-28 13:24 | HO.PM.IMCN ---
History of Present Illness Data of Consult Service Date: 06/28/25 Primary Care Provider: [facility] HPI 29-year-old woman with Bipolar DO, Depression, anxiety and SI, nonadherance with medication, alcohol use disorder. She initially Presented to ED for ETOH intoxication and SI with a plan. Patient was sectioned and admitted out of concern for active SI and for possible alcohol withdrawal to medical service. She was treated with IV thiamine, folic acid, and phenobarbital protocol. She did refuse phenobarbital as she reports that oral medications were not effective for her. Received IV Valium which she frequently requested. She did not demonstrate any evidence of alcohol withdrawals. While on the medical floor her behavior was dysregulated with verbal abuse as well as aberrant seeking behaviors. Her A1c was noted to be 5.4 in July 2023. While in the hospital she was noted to have hyperglycemia with blood sugars over 300 with no known history of diabetes. Her A1c was noted to be 13.6 on admission. Notably she miscarried at 5 months gestation approximately 1 month ago which may possibly be related to possible gestational DM. Diagnosed with new onset diabetes, She was started on Lantus and sliding scale insulin, along with diabetic diet. Blood sugars have been ranging 144-359. She will need diabetes education and dietary education and outpatient follow up. Also started on Metformin, now on 1500mgs at . Patient is seen today for diabetic management, she is easily angered and agitated when discussing plan of care. She is using expletives, and decides that she wants to continue with insulin. Psychiatric team with concerns regarding her ability to manage insulin upon discharge. Review of Systems Review of Systems: Denies any shortness of breath, chest pain, dizziness, lightheadedness, abdominal pain or discomfort, nausea vomiting or diarrhea [facility] Medical History (Updated 06/24/25 @ 18:00 by Josh Chaparro MD) PTSD (post-traumatic stress disorder) Polysubstance use disorder Alcohol use disorder Bipolar disorder Social History Household Members: Family Household Members Other:: 3 Housing: House Do you presently have visiting nurse or other home services: No Alcohol intake: current Alcohol intake frequency: other Alcohol type: hard liquor Comment: 1:1 IN EFFECT Patient Tobacco Use Status: Current everyday Tobacco user Tobacco use type: Cigarette Cigarettes Per Day: 7 Smoked in Last 30 Days: Yes e-Cigarette/Vaping Use: Currently Using Patient Interested in Nicotine Replacement: Yes Patient Given Instructions on How to Stop Smoking: No Second Hand Smoke Exposure: Yes Substance Use Type: Opiates and Other Currently Displaying Signs/Symptoms of Drug Intoxication Withdrawal: No Have you been hit, kicked, punched, or otherwise hurt by someone within the past year? If so, by whom?: No Do you feel safe in your current relationship?: Yes Is there a partner from a previous relationship who is making you feel unsafe now?: No Are you made to feel afraid or neglected: No Advance Directives: No Advance Directives Information Provided: No Do you have thoughts of harming others: None Do you have a plan to hurt others: No Plan Recently lost weight without trying: No How much weight loss: Not applicable Eating poorly because of decreased appetite: No Nutrition screen score: 0 Nutrition Risks: No Nutritional Risk Patient : No : No Poor oral hygiene: Yes service: No Sexual orientation: Unable to collect Meds Allergies Allergy/AdvReac Type Severity Reaction Status Date / Time SEAFOOD Allergy Unknown UNK Uncoded 06/20/25 11:31 Active Medications: Current Medications Acamprosate (Acamprosate Calcium 333 Mg Tablet.Dr) 333 mg PO TID KATHY Last Admin: 06/28/25 08:48 Dose: 333 mg Acetaminophen (Acetaminophen 325 Mg Tablet) 650 mg PO Q6H PRN PRN Reason: Headache/Pain, Scale 1-10 Last Admin: 06/23/25 22:16 Dose: 650 mg Al Hydroxide/Mg Hydroxide (Magnesium Hydrox/Alum Hydrox 30 Ml Oral.Susp) 30 ml PO Q6H PRN PRN Reason: Heartburn/Nausea Last Admin: 06/27/25 20:24 Dose: 30 ml Clonidine HCl (Clonidine Hcl 0.1 Mg Tablet) 0.1 mg PO Q4H PRN; Protocol PRN Reason: moderate anxiety Last Admin: 06/25/25 23:50 Dose: 0.1 mg Clonidine HCl (Clonidine Hcl 0.1 Mg Tablet) 0.1 mg PO TID KATHY; Protocol Last Admin: 06/28/25 08:48 Dose: 0.1 mg Diazepam (Diazepam 5 Mg Tablet) 5 mg PO BID KATHY Last Admin: 06/28/25 08:54 Dose: 5 mg Gabapentin (Gabapentin 400 Mg Capsule) 800 mg PO TID KATHY Last Admin: 06/28/25 08:48 Dose: 800 mg Hydroxyzine HCl (Hydroxyzine Hcl 25 Mg Tablet) 25 mg PO Q6H PRN PRN Reason: mild anxiety Last Admin: 06/25/25 18:45 Dose: 25 mg Insulin Glargine (Insulin Glargine,Hum.Rec.Anlog 100 Unit/Ml 10 Ml Vial) 10 unit SUBCUT BEDTIME [facility] Last Admin: 06/27/25 23:08 Dose: 10 unit Insulin Human Lispro (Insulin Lispro 100 Unit/Ml 3 Ml Vial) 0 unit SUBCUT QIDACHS [facility]; Protocol Last Admin: 06/28/25 12:58 Dose: 4 unit Loperamide HCl (Loperamide Hcl 2 Mg Capsule) 2 mg PO Q6H PRN PRN Reason: Loose Stool Last Admin: 06/25/25 18:46 Dose: 2 mg Magnesium Hydroxide (Milk Of Magnesia 30 Ml Oral.Susp) 30 ml PO DAILY PRN PRN Reason: Constipation Melatonin (Melatonin 3 Mg Tablet) 6 mg PO BEDTIME PRN PRN Reason: Insomnia Last Admin: 06/25/25 23:49 Dose: 6 mg Metformin HCl (Metformin Hcl Er 750 Mg Tab.Er.24h) 1,500 mg PO BEDTIME [facility] Multivitamins/Vitamin C (Multivitamin Tablet) 1 tab PO DAILY [facility] Last Admin: 06/28/25 08:48 Dose: 1 tab Nicotine (Nicotine 21 Mg Patch.Td24) 21 mg TRANSDERMA DAILY PRN PRN Reason: smoking cessation Nicotine Polacrilex (Nicotine Polacrilex 2 Mg Gum) 4 mg BUCCAL Q2H PRN PRN Reason: Nicotine Cravings Last Admin: 06/23/25 18:11 Dose: 4 mg Olanzapine (Olanzapine 5 Mg Tablet) 5 mg PO Q4H PRN PRN Reason: agitation Oxcarbazepine (Oxcarbazepine 300 Mg Tablet) 600 mg PO BID [facility] Last Admin: 06/28/25 08:48 Dose: 600 mg Risperidone (Risperidone 0.5 Mg Tablet) 0.5 mg PO BID [facility] Last Admin: 06/28/25 08:48 Dose: 0.5 mg Trazodone HCl (Trazodone Hcl 100 Mg Tablet) 100 mg PO BEDTIME PRN PRN Reason: Insomnia Last Admin: 06/27/25 23:14 Dose: 100 mg Home Medications ?Medication ?Instructions ?Recorded ?Confirmed ?Last Taken ?Type gabapentin 800 mg tablet 800 mg PO TID 07/23/23 06/23/25 Unknown History multivitamin with folic acid 400 1 tab PO DAILY 07/23/23 06/23/25 Unknown History mcg tablet (Daily-Damon (with folic acid)) clonidine HCl 0.1 mg tablet 0.1 mg PO TID 06/20/25 06/23/25 Unknown History Physical Exam Vital Signs and Narrative: Vital Signs: Last Vital Signs Temp 98.2 F 06/28/25 08:00 Pulse 85 06/28/25 08:00 Resp 16 06/28/25 08:00 BP 100/70 06/28/25 08:48 Pulse Ox 96 06/28/25 08:00 O2 Del Method Room Air 06/28/25 08:00 BMI result Body Mass Index 26.0 CONST: Alert and sedate, in NAD. Well nourished HEENT: Normocephalic, atraumatic, MMM RESP: Lungs clear, RRR even and regular HEART:,RRR, S1, S2. No edema GI:Abdomen Soft NT, ND. + BS times four :Deferred SKIN: Warm dry and intact, no visible lesions or rashes NEURO:CN II-XII Intact bilaterally, Sensation intact. Speech clear PSYCH: Sedate, easily agitated, swearing. Results Labs 06/26/25 08:23 Labs: Laboratory Results - last 24 hr 06/27/25 06/27/25 06/28/25 17:59 20:18 08:34 POC Glucose 340 H 230 H 144 H 06/28/25 11:38 POC Glucose 210 H Assessment and Plan (1) Diabetes: Status: Acute (2) Hyperglycemia: Status: Acute Plan Alcohol use disorder/Depression/Bipolar DO/Anxiety/SI Initially admitted for withdrawal, now admitted to inpatient psych for further care. Treatment per psych team. Type 2 DM Recent Hgb A1C is 13.1 Continue Lantus while inpatient, sliding scale insulin while inpatient Diabetic diet Continue on Metformin, add glipizide. Check C-Peptide, [id number] Will need close follow up upon discharge including diabetes education, PCP and possible endocrinology follow up. Possible home care for medication management and teaching. Thank you for allowing me to participate in the care of this patient. We will follow as needed. Please reconsult of any acute concerns or issues arise
[2025-06-28 15:17] VITALS: BP 124/68
[2025-06-28 17:10] LABS: Glucose, Whole Blood 332 mg/dL (60-115)
--- NOTE | 2025-06-28 17:45 | HO.PSYCHPN ---
Subjective Subjective Date of Service: 06/28/25 Reason For Visit: SI Interim History: Met with patient; discussed with team Patient remains doing much better; still can be demanding, some staff splitting. Took a camper set today and said it made her little dizzy but she wants to keep taking it. Discussed risperidone and how it is helping her behavioral control and she agrees to increase dose. Discussed diabetes and effort to help her control her blood sugars with oral medications instead of insulin to which she degrees; instructional writer discussed with hospitalist radu who also met with patient who agreed to try glipizide (risks/side effects reviewed with patient) Mental Status Exam Mental Status Exam Narrative: Pt is alert and oriented; behavior is sometimes cooperative, friendly and calm, other times regressed and demanding; overall in improved and adequate behavioral/impulse control; patient is not in distress; dressed in casual attire adequate grooming and hygiene; mood is described as okay and affect congruent, overall brighter and calm; eye contact appropriate; Speech is mostly normal rate, volume and prosody; no psychomotor agitation/retardation present; thought process is organized and goal directed; Thought content is on tx, discharge, wanting to talk to a male peer that discharged; otherwise pertinent to relevant topics and without any delusional content, paranoid ideations or grandiosity; denies any SI/HI. Denies AVH and there is no evidence of perceptual disturbance. Patients insight and judgment at baseline and fair and adequate Diagnostics Vital Signs (24Hr): Vital Signs - 24 hr 06/27/25 20:00 06/28/25 08:00 06/28/25 08:48 Temperature 98.3 F 98.2 F Pulse Rate 100 85 Respiratory Rate 16 Blood Pressure 109/69 100/70 100/70 Pulse Oximetry 96 96 Oxygen Delivery Method Room Air Room Air 06/28/25 15:17 Temperature Pulse Rate Respiratory Rate Blood Pressure 124/68 Pulse Oximetry Oxygen Delivery Method BMI result Body Mass Index 26.0 Labs 06/29/25 08:14 Labs: Laboratory Results - last 48 hr 06/26/25 06/26/25 06/27/25 20:29 23:11 08:09 POC Glucose 359 H* 177 H 191 H 06/27/25 06/27/25 06/27/25 12:47 17:59 20:18 POC Glucose 268 H 340 H 230 H 06/28/25 06/28/25 06/28/25 08:34 11:38 16:59 POC Glucose 144 H 210 H 332 H Medications Medications Current Medications Acamprosate (Acamprosate Calcium 333 Mg Tablet.Dr) 333 mg PO TID [facility] Last Admin: 06/28/25 15:17 Dose: 333 mg Acetaminophen (Acetaminophen 325 Mg Tablet) 650 mg PO Q6H PRN PRN Reason: Headache/Pain, Scale 1-10 Last Admin: 06/23/25 22:16 Dose: 650 mg Al Hydroxide/Mg Hydroxide (Magnesium Hydrox/Alum Hydrox 30 Ml Oral.Susp) 30 ml PO Q6H PRN PRN Reason: Heartburn/Nausea Last Admin: 06/27/25 20:24 Dose: 30 ml Clonidine HCl (Clonidine Hcl 0.1 Mg Tablet) 0.1 mg PO Q4H PRN; Protocol PRN Reason: moderate anxiety Last Admin: 06/25/25 23:50 Dose: 0.1 mg Clonidine HCl (Clonidine Hcl 0.1 Mg Tablet) 0.1 mg PO TID [facility]; Protocol Last Admin: 06/28/25 15:17 Dose: 0.1 mg Diazepam (Diazepam 5 Mg Tablet) 5 mg PO BEDTIME KATHY Gabapentin (Gabapentin 400 Mg Capsule) 800 mg PO TID [facility] Last Admin: 06/28/25 15:18 Dose: 800 mg Glipizide (Glipizide Xl 2.5 Mg Tab.Er.24) 2.5 mg PO DAILY KATHY Hydroxyzine HCl (Hydroxyzine Hcl 25 Mg Tablet) 25 mg PO Q6H PRN PRN Reason: mild anxiety Last Admin: 06/25/25 18:45 Dose: 25 mg Insulin Glargine (Insulin Glargine,Hum.Rec.Anlog 100 Unit/Ml 10 Ml Vial) 10 unit SUBCUT BEDTIME [facility] Last Admin: 06/27/25 23:08 Dose: 10 unit Insulin Human Lispro (Insulin Lispro 100 Unit/Ml 3 Ml Vial) 0 unit SUBCUT QIDACHS [facility]; Protocol Last Admin: 06/28/25 12:58 Dose: 4 unit Loperamide HCl (Loperamide Hcl 2 Mg Capsule) 2 mg PO Q6H PRN PRN Reason: Loose Stool Last Admin: 06/25/25 18:46 Dose: 2 mg Magnesium Hydroxide (Milk Of Magnesia 30 Ml Oral.Susp) 30 ml PO DAILY PRN PRN Reason: Constipation Melatonin (Melatonin 3 Mg Tablet) 6 mg PO BEDTIME PRN PRN Reason: Insomnia Last Admin: 06/25/25 23:49 Dose: 6 mg Metformin HCl (Metformin Hcl Er 750 Mg Tab.Er.24h) 1,500 mg PO BEDTIME KATHY Multivitamins/Vitamin C (Multivitamin Tablet) 1 tab PO DAILY KATHY Last Admin: 06/28/25 08:48 Dose: 1 tab Nicotine (Nicotine 21 Mg Patch.Td24) 21 mg TRANSDERMA DAILY PRN PRN Reason: smoking cessation Nicotine Polacrilex (Nicotine Polacrilex 2 Mg Gum) 4 mg BUCCAL Q2H PRN PRN Reason: Nicotine Cravings Last Admin: 06/28/25 13:36 Dose: 4 mg Olanzapine (Olanzapine 5 Mg Tablet) 5 mg PO Q4H PRN PRN Reason: agitation Oxcarbazepine (Oxcarbazepine 300 Mg Tablet) 600 mg PO BID KATHY Last Admin: 06/28/25 08:48 Dose: 600 mg Risperidone (Risperidone 0.5 Mg Tablet) 0.5 mg PO TID KATHY Trazodone HCl (Trazodone Hcl 100 Mg Tablet) 100 mg PO BEDTIME PRN PRN Reason: Insomnia Last Admin: 06/27/25 23:14 Dose: 100 mg Allergies Allergies Allergy/AdvReac Type Severity Reaction Status Date / Time SEAFOOD Allergy Unknown UNK Uncoded 06/20/25 11:31 Assessment & Plan Assessment & Plan (1) Bipolar disorder: Status: Acute Code(s): F31.9 - Bipolar disorder, unspecified (2) PTSD (post-traumatic stress disorder): Status: Acute Code(s): F43.10 - Post-traumatic stress disorder, unspecified (3) Alcohol use disorder: Status: Acute Code(s): F10.90 - Alcohol use, unspecified, uncomplicated (4) Diabetes: Status: Acute Code(s): E11.9 - Type 2 diabetes mellitus without complications Plan HPI: Patient is a 29-year-old female with history of recorded bipolar disorder, seizure disorder, PTSD, alcohol abuse who presents for suicidal statements in the face of alcohol relapse and psychosocial stressors; patient 1st admitted to the medical floor for detox with phenobarbital which she refused, saying she only wanted IV Valium; patient needed to be chemically restrained while on the medical floor. She now comes to the psychiatric unit. She is calm. Patient reports that she was sober for 2 years, going to meetings, taking medications, doing good... working and remained stable. However She had a miscarriage 3 weeks ago at 5 months and relapsed with alcohol drinking excessively; she presented to the ED on 06/11 for detox but left prematurely and continue drinking. About a week ago she found out her kids got adopted and patient became dysregulated, stopped taking all her medications. Patient acknowledges she did make a suicidal statement but reports she was not really suicidal and even though she said she would shoot herself she said she did not mean it, does not have a shot gun and just said it because I was mad.. Patient's father concurs that patient does not have access to a gun. Patient says she remains in withdrawal and wants Valium and says I want to feel sedated... Formulation/clinical reasoning: Patient guarded and irritable and difficult with which to engage. She is mostly focused on having Valium order increased. Review of chart indicates that patient has indeed been drinking for weeks, having presenting on 06/11 for detox and then again 9 days later; patient was treated on the medical floor for few days but refused phenobarbital. Fx Artist spoke with hospitalist who did not think that patient was having much in the way of withdrawal symptoms however it is possible that she remains with residual withdraw symptoms from alcohol and so instructional writer agrees to increase Valium to 10 mg t.i.d. for several days and then taper off. Patient's potential need for benzos for detox is also easily confused with her desire to feel overly sedated to avoid upsetting thoughts; thus will schedule benzos. Regarding home medications of Trileptal and gabapentin, patient says that it does not help with anything, which contradicts her earlier statement that during her 2 years of sobriety she was doing well, stable, in good mood; it is most likely her current reporting is heavily influenced by the overwhelming sadness of having her children now irreversibly adopted. As patient stabilizes will continue to evaluate mood and medication management -on admission, patient was discovered to be diabetic with hemoglobin A1c of 13. Hospitalist team started on metformin and sliding scale; not sure if patient will be willing to adhere sliding scale post discharge Hospital course 06/25: Active on unit. social with select peers. appears sedated. Patient reports feeling anxious and depressed; pt stated, I'm not ready to go home. I want to stay here for a month . denies SI/HI/VH/AH. Continue current tx plan. 06/26: continue tx plan. 06/27 talked about behaviors on unit; will work on being in better control pt reiterated never actually suicidal; says only reason said shotgun was to make sure got admitted Pt confirms that on Gabapentin, Trileptal (and clonidine and prn Hydroxyzine) she was stable and mood was good and wants to continue; also no seizures for 2 years on these meds talked about her struggles with anger; discussed medication options and reviewed risks/side effects of antipsychotic Risperdal verses Prozac; patient agrees to start Risperdal (risperdal has more effect than prozac; also not sure if she does have bipolar, making prozac a little risky) regarding sobriety, she plans to go back to and asked for meeting locations; she wants Acamproset to help with cravings (reviewed risks/side-effects) discussed Diabetes and treatment; pt agrees that she will struggle to handle insulin at home and to be switched to PO medication regimen (consult placed) -patient retracted 3 day to stay for further treatment and aftercare set up 06/28 Patient remains doing much better; still can be demanding, some staff splitting. Took a camper set today and said it made her little dizzy but she wants to keep taking it. Discussed risperidone and how it is helping her behavioral control and she agrees to increase dose. Discussed diabetes and effort to help her control her blood sugars with oral medications instead of insulin to which she degrees; instructional writer discussed with hospitalist radu who also met with patient who agreed to try glipizide (risks/side effects reviewed with patient) -patient overall in good behavioral/impulse control though at times has regressed behaviors; sometimes looks sedated, likely due to long-acting Valium which is being tapered PLAN: 3 day Q 15 Start glipizide 2.5 mg daily Continue Trileptal 600 mg b.i.d. for seizure disorder Continue gabapentin 800 mg t.i.d. for seizure disorder e) Continued clonidine 0.1 mg t.i.d. Continue Risperdal 0.5 mg t.i.d. will increase Tapering Valium and will discontinue Switching to metformin ER 1000 mg q.h.s.; will increase to 1500 Consult into help switch patient to p.o. antihyperglycemic medications since patient does not seem capable of managing insulin Newly started on insulin sliding scale/Lantus; plan is to DC and use oral antihyperglycemics Patient educated on: diagnosis, medication risk/benefits, substance abuse and medical condition Informed Consent: understands Reason for continued inpatient stay Substantial Risk for: med/psych decompensation Time Spent With Patient Time: Total time managing care of this patient today ____ minutes.
--- NOTE | 2025-06-28 18:20 | PC.NURSE ---
During dinner time, this fha underwriter approached pt who was laying in bed with her eye closed. She did not respond to this fha underwriter speaking to her. This fha underwriter picked up her arm and dropped it. Pt then stated what the hell? . This fha underwriter asked her if she was going to be eating dinner. Pt declined to answer. Pt was told that her dinner tray would be behind the desk when she is ready for it. Pt remains in bed sleeping. Reported to provider.
--- NOTE | 2025-06-28 19:49 | PC.NURSE ---
At approximately 6:45pm Ibeth Sommers roommate came to TW to have a private conversation. She shared that both yesterday and today Ibeth was heard in the bathroom sniffing and then it sounded like she thew up. She even left her dentures in the sink and was very sedated both times just laying in bed and saying things that didn't make sense. This has happened twice after the victor haired man (pt said it's her dad) visited her. Ibeth's roommate expressed genuine concern for pt I don't want her to and this was endorsed to night guard RN for follow up. MARKO Buckner also informed via tiger text.
[2025-06-28 20:00] VITALS: BP 111/71; PULSE 108; RESP 16; TEMP 36.8; O2SAT 98
[2025-06-28 20:51] LABS: Glucose, Whole Blood 247 mg/dL (60-115)
[2025-06-28] MEDS: Insulin Glargine,Hum.rec.anlog 100 UNIT/ML 10 ML VIAL 10 UNIT SUBCUT (21:59)
[2025-06-28 22:03] VITALS: BP 138/74
[2025-06-28] MEDS: Magnesium Hydrox/Alum Hydrox 30 ML ORAL.SUSP PO (22:16)
[2025-06-29 00:11] LABS: Cannabinoid Screen Urine Not Detected (Not Detect)
[2025-06-29 04:31] VITALS: BP 112/70
[2025-06-29 08:00] VITALS: RESP 18
[2025-06-29 08:17] LABS: Glucose, Whole Blood 151 mg/dL (60-115)
[2025-06-29 08:53] VITALS: BP 94/68
[2025-06-29 08:53] LABS: Anion Gap 12 (12-20); Blood Urea Nitrogen 9 mg/dL (9-16); Calcium 8.8 mg/dL (8.4-10.2); Carbon Dioxide 26 mmol/L (22-29); Chloride 103 mmol/L (96-108); Creatinine Clr Calc Pharmacy 126.8; Estimated Glomerular Filt Rate > 60; Potassium 4.5 mmol/L (3.3-5.1); Sodium 136 mmol/L (135-145)
[2025-06-29 12:37] LABS: Glucose, Whole Blood 167 mg/dL (60-115)
[2025-06-29 13:52] LABS: UPreg QC Valid YES
[2025-06-29 14:28] VITALS: BP 110/72
--- NOTE | 2025-06-29 16:46 | PC.NURSE ---
Addendum entered by Latasha Moreno RN 06/29/25 17:02: Ibeth was interested in resuming AA meetings and was given a [facility] [employer] program card to scan once discharged; this program arranges for an established member of AA to take her to a meeting to assist with and support her in recovery. Original Note: Ibeth was referred to the [facility] through her provider to discuss recovery options after discharge. Ibeth was receptive to our conversation and shared her struggle with recovery and the upset that she experienced due a short but recent relapse with alcohol. Ibeth was recently started on Acamprosate and wishes to continue with recovery support and care through the [facility]. She requested that an appointment be made for her. Ibeth has a MAT intake scheduled for 07/04/25 at 10:30 am.?
--- NOTE | 2025-06-29 17:42 | HO.PSYCHPN ---
Subjective Subjective Date of Service: 06/29/25 Reason For Visit: SI Interim History: Met with patient; discussed with team Patient reports that she is good and is looking forward to going tomorrow, very hopeful that she will get a primary care in time. Feels that medications have been helpful and is tolerating them well. Pleased to hear that her sugars have improved with glipizide (typewriters functional tester again reviewed risks/side effects which she understands has the help of her father supportive). Patient talked about her struggles with substance abuse and how much she really wants to stay sober and her plans for continuing to do so. Patient also thankful for help received on the unit. Patient is returning to [facility] where she will have a recovery operator and is planning to engage in anger management therapy. Comprehensive care team saw patient and has an outpatient appointment set up for her as well. Since getting on glipizide, patient's blood sugars have been much improved. Nursing staff provided diabetes education including diet and since then she has been working towards limiting her sugar intake and has her family bringing her sugar free Gatorade/coke, returning the cookies on her meal tray... Patient has a primary care appointment with her new PCP dr. Rodriguez on July 06. Mental Status Exam Mental Status Exam Narrative: Pt is alert and oriented; behavior is sometimes cooperative, friendly and calm, less regressed/demanding behaviors; overall in improved and in overall good behavioral/impulse control; patient is not in distress; dressed in casual attire with good grooming and hygiene; mood is described as good and affect congruent, and remains overall brighter and calm; eye contact appropriate; Speech is normal rate, volume and prosody; no psychomotor agitation/retardation present; thought process is organized and goal directed; Thought content is on tx, discharge; otherwise pertinent to relevant topics and without any delusional content, paranoid ideations or grandiosity; denies any SI/HI. Denies AVH and there is no evidence of perceptual disturbance. Patients insight and judgment at baseline and fair and adequate Diagnostics Vital Signs (24Hr): Vital Signs - 24 hr 06/28/25 20:00 06/28/25 22:03 06/29/25 04:31 Temperature 98.2 F Pulse Rate 108 H Respiratory Rate 16 Blood Pressure 111/71 138/74 112/70 Pulse Oximetry 98 Oxygen Delivery Method Room Air 06/29/25 08:00 06/29/25 08:53 06/29/25 14:28 Temperature Pulse Rate Respiratory Rate 18 Blood Pressure 94/68 110/72 Pulse Oximetry Oxygen Delivery Method BMI result Body Mass Index 26.0 Labs 06/29/25 08:14 Labs: Laboratory Results - last 48 hr 06/27/25 06/27/25 06/28/25 17:59 20:18 08:34 Sodium Potassium Chloride Carbon Dioxide Anion Gap BUN Creatinine Estim Creat Clear Calc Estimated GFR POC Glucose 340 H 230 H 144 H Random Glucose Calcium Urine Test Urine Opiates Screen Ur Buprenorphine Scrn Ur Oxycodone Screen Urine Methadone Screen Urine Fentanyl Screen Ur Barbiturates Screen Ur Phencyclidine Scrn Ur Amphetamines Screen U Benzodiazepines Scrn Urine Cocaine Screen U Marijuana (THC) Screen 06/28/25 06/28/25 06/28/25 11:38 16:59 20:38 Sodium Potassium Chloride Carbon Dioxide Anion Gap BUN Creatinine Estim Creat Clear Calc Estimated GFR POC Glucose 210 H 332 H 247 H Random Glucose Calcium Urine Test Urine Opiates Screen Ur Buprenorphine Scrn Ur Oxycodone Screen Urine Methadone Screen Urine Fentanyl Screen Ur Barbiturates Screen Ur Phencyclidine Scrn Ur Amphetamines Screen U Benzodiazepines Scrn Urine Cocaine Screen U Marijuana (THC) Screen 06/28/25 06/29/25 06/29/25 22:21 08:07 08:14 Sodium 136 Potassium 4.5 Chloride 103 Carbon Dioxide 26 Anion Gap 12 BUN 9 Creatinine 0.60 Estim Creat Clear Calc 126.8 Estimated GFR > 60 POC Glucose 151 H Random Glucose 144 H Calcium 8.8 Urine Test Urine Opiates Screen Not Detected Ur Buprenorphine Scrn Not Detected Ur Oxycodone Screen Not Detected Urine Methadone Screen Not Detected Urine Fentanyl Screen Not Detected Ur Barbiturates Screen POSITIVE H Ur Phencyclidine Scrn Not Detected Ur Amphetamines Screen Not Detected U Benzodiazepines Scrn POSITIVE H Urine Cocaine Screen Not Detected U Marijuana (THC) Screen Not Detected 06/29/25 06/29/25 12:33 13:39 Sodium Potassium Chloride Carbon Dioxide Anion Gap BUN Creatinine Estim Creat Clear Calc Estimated GFR POC Glucose 167 H Random Glucose Calcium Urine Test NEGATIVE Urine Opiates Screen Ur Buprenorphine Scrn Ur Oxycodone Screen Urine Methadone Screen Urine Fentanyl Screen Ur Barbiturates Screen Ur Phencyclidine Scrn Ur Amphetamines Screen U Benzodiazepines Scrn Urine Cocaine Screen U Marijuana (THC) Screen Medications Medications Current Medications Acamprosate (Acamprosate Calcium 333 Mg Tablet.Dr) 333 mg PO TID [facility] Last Admin: 06/29/25 14:29 Dose: Not Given Acetaminophen (Acetaminophen 325 Mg Tablet) 650 mg PO Q6H PRN PRN Reason: Headache/Pain, Scale 1-10 Last Admin: 06/23/25 22:16 Dose: 650 mg Al Hydroxide/Mg Hydroxide (Magnesium Hydrox/Alum Hydrox 30 Ml Oral.Susp) 30 ml PO Q6H PRN PRN Reason: Heartburn/Nausea Last Admin: 06/28/25 22:16 Dose: 30 ml Clonidine HCl (Clonidine Hcl 0.1 Mg Tablet) 0.1 mg PO Q4H PRN; Protocol PRN Reason: moderate anxiety Last Admin: 06/29/25 04:31 Dose: 0.1 mg Clonidine HCl (Clonidine Hcl 0.1 Mg Tablet) 0.1 mg PO TID [facility]; Protocol Last Admin: 06/29/25 14:28 Dose: 0.1 mg Diazepam (Diazepam 5 Mg Tablet) 5 mg PO BEDTIME [facility] Last Admin: 06/28/25 22:02 Dose: 5 mg Gabapentin (Gabapentin 400 Mg Capsule) 800 mg PO TID [facility] Last Admin: 06/29/25 14:28 Dose: 800 mg Glipizide (Glipizide Xl 2.5 Mg Tab.Er.24) 2.5 mg PO DAILY [facility] Last Admin: 06/29/25 08:17 Dose: 2.5 mg Hydroxyzine HCl (Hydroxyzine Hcl 25 Mg Tablet) 25 mg PO Q6H PRN PRN Reason: mild anxiety Last Admin: 06/29/25 12:38 Dose: 25 mg Insulin Glargine (Insulin Glargine,Hum.Rec.Anlog 100 Unit/Ml 10 Ml Vial) 10 unit SUBCUT BEDTIME [facility] Last Admin: 06/28/25 21:59 Dose: 10 unit Insulin Human Lispro (Insulin Lispro 100 Unit/Ml 3 Ml Vial) 0 unit SUBCUT QIDACHS [facility]; Protocol Last Admin: 06/29/25 12:38 Dose: 2 unit Loperamide HCl (Loperamide Hcl 2 Mg Capsule) 2 mg PO Q6H PRN PRN Reason: Loose Stool Last Admin: 06/25/25 18:46 Dose: 2 mg Magnesium Hydroxide (Milk Of Magnesia 30 Ml Oral.Susp) 30 ml PO DAILY PRN PRN Reason: Constipation Melatonin (Melatonin 3 Mg Tablet) 6 mg PO BEDTIME PRN PRN Reason: Insomnia Last Admin: 06/25/25 23:49 Dose: 6 mg Metformin HCl (Metformin Hcl Er 750 Mg Tab.Er.24h) 1,500 mg PO BEDTIME [facility] Last Admin: 06/28/25 22:02 Dose: 1,500 mg Multivitamins/Vitamin C (Multivitamin Tablet) 1 tab PO DAILY KATHY Last Admin: 06/29/25 08:19 Dose: 1 tab Nicotine (Nicotine 21 Mg Patch.Td24) 21 mg TRANSDERMA DAILY PRN PRN Reason: smoking cessation Nicotine Polacrilex (Nicotine Polacrilex 2 Mg Gum) 4 mg BUCCAL Q2H PRN PRN Reason: Nicotine Cravings Last Admin: 06/28/25 13:36 Dose: 4 mg Olanzapine (Olanzapine 5 Mg Tablet) 5 mg PO Q4H PRN PRN Reason: agitation Last Admin: 06/29/25 09:55 Dose: 5 mg Oxcarbazepine (Oxcarbazepine 300 Mg Tablet) 600 mg PO BID [facility] Last Admin: 06/29/25 08:18 Dose: 600 mg Risperidone (Risperidone 0.5 Mg Tablet) 0.5 mg PO TID [facility] Last Admin: 06/29/25 14:29 Dose: 0.5 mg Trazodone HCl (Trazodone Hcl 100 Mg Tablet) 100 mg PO BEDTIME PRN PRN Reason: Insomnia Last Admin: 06/28/25 22:16 Dose: 100 mg Allergies Allergies Allergy/AdvReac Type Severity Reaction Status Date / Time SEAFOOD Allergy Unknown UNK Uncoded 06/20/25 11:31 Assessment & Plan Assessment & Plan (1) Bipolar disorder: Status: Acute Code(s): F31.9 - Bipolar disorder, unspecified (2) PTSD (post-traumatic stress disorder): Status: Acute Code(s): F43.10 - Post-traumatic stress disorder, unspecified (3) Alcohol use disorder: Status: Acute Code(s): F10.90 - Alcohol use, unspecified, uncomplicated (4) Diabetes: Status: Acute Code(s): E11.9 - Type 2 diabetes mellitus without complications Plan HPI: Patient is a 29-year-old female with history of recorded bipolar disorder, seizure disorder, PTSD, alcohol abuse who presents for suicidal statements in the face of alcohol relapse and psychosocial stressors; patient 1st admitted to the medical floor for detox with phenobarbital which she refused, saying she only wanted IV Valium; patient needed to be chemically restrained while on the medical floor. She now comes to the psychiatric unit. She is calm. Patient reports that she was sober for 2 years, going to meetings, taking medications, doing good... working and remained stable. However She had a miscarriage 3 weeks ago at 5 months and relapsed with alcohol drinking excessively; she presented to the ED on 06/11 for detox but left prematurely and continue drinking. About a week ago she found out her kids got adopted and patient became dysregulated, stopped taking all her medications. Patient acknowledges she did make a suicidal statement but reports she was not really suicidal and even though she said she would shoot herself she said she did not mean it, does not have a shot gun and just said it because I was mad.. Patient's father concurs that patient does not have access to a gun. Patient says she remains in withdrawal and wants Valium and says I want to feel sedated... Formulation/clinical reasoning: Patient guarded and irritable and difficult with which to engage. She is mostly focused on having Valium order increased. Review of chart indicates that patient has indeed been drinking for weeks, having presenting on 06/11 for detox and then again 9 days later; patient was treated on the medical floor for few days but refused phenobarbital. Marketing Project Coordinator spoke with hospitalist who did not think that patient was having much in the way of withdrawal symptoms however it is possible that she remains with residual withdraw symptoms from alcohol and so typewriters functional tester agrees to increase Valium to 10 mg t.i.d. for several days and then taper off. Patient's potential need for benzos for detox is also easily confused with her desire to feel overly sedated to avoid upsetting thoughts; thus will schedule benzos. Regarding home medications of Trileptal and gabapentin, patient says that it does not help with anything, which contradicts her earlier statement that during her 2 years of sobriety she was doing well, stable, in good mood; it is most likely her current reporting is heavily influenced by the overwhelming sadness of having her children now irreversibly adopted. As patient stabilizes will continue to evaluate mood and medication management -on admission, patient was discovered to be diabetic with hemoglobin A1c of 13. Hospitalist team started on metformin and sliding scale; not sure if patient will be willing to adhere sliding scale post discharge Hospital course 06/25: Active on unit. social with select peers. appears sedated. Patient reports feeling anxious and depressed; pt stated, I'm not ready to go home. I want to stay here for a month . denies SI/HI/VH/AH. Continue current tx plan. 06/26: continue tx plan. 06/27 talked about behaviors on unit; will work on being in better control pt reiterated never actually suicidal; says only reason said shotgun was to make sure got admitted Pt confirms that on Gabapentin, Trileptal (and clonidine and prn Hydroxyzine) she was stable and mood was good and wants to continue; also no seizures for 2 years on these meds talked about her struggles with anger; discussed medication options and reviewed risks/side effects of antipsychotic Risperdal verses Prozac; patient agrees to start Risperdal (risperdal has more effect than prozac; also not sure if she does have bipolar, making prozac a little risky) regarding sobriety, she plans to go back to and asked for meeting locations; she wants Acamproset to help with cravings (reviewed risks/side-effects) discussed Diabetes and treatment; pt agrees that she will struggle to handle insulin at home and to be switched to PO medication regimen (consult placed) -patient retracted 3 day to stay for further treatment and aftercare set up 06/28 Patient remains doing much better; still can be demanding, some staff splitting. Took Acamproset today and said it made her little dizzy but she wants to keep taking it. Discussed risperidone and how it is helping her behavioral control and she agrees to increase dose. Discussed diabetes and effort to help her control her blood sugars with oral medications instead of insulin to which she degrees; typewriters functional tester discussed with hospitalist radu who also met with patient who agreed to try glipizide (risks/side effects reviewed with patient) -patient overall in good behavioral/impulse control though at times has regressed behaviors; sometimes looks sedated, likely due to long-acting Valium which is being tapered 06/29 Patient reports that she is good and is looking forward to going tomorrow, very hopeful that she will get a primary care in time. Feels that medications have been helpful and is tolerating them well, though Acamproset seems to be causing nausea, patient feels that it is very helpful and wants to continue. Pleased to hear that her sugars have improved with glipizide (typewriters functional tester again reviewed risks/side effects which she understands; patient also cites the fact that she has her father to help with medications whom she finds supportive). Patient talked about her struggles with substance abuse and how much she really wants to stay sober and her plans for continuing to do so; discussed risks of metformin including if combined with alcohol abuse, which patient understands and reiterates her plan is to remain sober. Patient also thankful for help received on the unit. Patient is returning to [facility] where she will have a recovery operator and is planning to engage in anger management therapy. Comprehensive care team saw patient and has an outpatient appointment set up for her as well. -Since getting on glipizide, patient's blood sugars have been much improved. Nursing staff provided diabetes education including diet and since then she has been working towards limiting her sugar intake and has her family bringing her sugar free Gatorade/coke, returning the cookies on her meal tray... Patient has a primary care appointment with her new PCP dr. Rodriguez on July 06. Patient has returned to baseline. She is looking forward to discharge. She is in good mood, future oriented and looking forward to seeing her kids and is eager to re-engage in treatment in the community with appointments pending. She is tolerating medication (with some tolerable nausea from Acamproset). Patient is returning home where she lives with her boyfriend and father whom are both supportive. Patient of course remains vulnerable to relapse with alcohol and decompensation however this is a chronic struggle for her, 1 which will not resolve with longer stay on inpatient unit but rather requires consistent outpatient treatment and sobriety, both of which patient is eager to engage. Patient is not in imminent risk for harm to self or others and appropriate to return to the community for treatment. Her request for discharge honored. PLAN: cv Q 15 continue glipizide 2.5 mg daily Continue Trileptal 600 mg b.i.d. for seizure disorder Continue gabapentin 800 mg t.i.d. for seizure disorder e) Continued clonidine 0.1 mg t.i.d. Continue Risperdal 0.5 mg t.i.d. will increase Continue Acamproset [id number] (BUN/CR WNL) Tapering Valium and will discontinue Switching to metformin ER 1000 mg q.h.s.; will increase to 1500 Consult into help switch patient to p.o. antihyperglycemic medications since patient does not seem capable of managing insulin Newly started on insulin sliding scale/Lantus; plan is to DC and use oral antihyperglycemics -Discussed risks of glipizide including hypoglycemia and metformin including lactic acidosis especially if combined with alcohol abuse Patient educated on: diagnosis, medication risk/benefits, substance abuse, therapeutic strategies and medical condition Informed Consent: understands Reason for continued inpatient stay Substantial Risk for: stable for discharge Time Spent With Patient Time: Total time managing care of this patient today ____ minutes.
[2025-06-29 19:43] LABS: Glucose, Whole Blood 283 mg/dL (60-115)
[2025-06-29 20:00] VITALS: BP 124/80; PULSE 96; RESP 16; TEMP 36.7; O2SAT 99
[2025-06-29] MEDS: Insulin Glargine,Hum.rec.anlog 100 UNIT/ML 10 ML VIAL 10 UNIT SUBCUT (22:11)
[2025-06-29 22:15] VITALS: BP 124/80
[2025-06-30] MEDS: Magnesium Hydrox/Alum Hydrox 30 ML ORAL.SUSP PO ×2 (00:08→10:28)
[2025-06-30 08:45] LABS: Glucose, Whole Blood 196 mg/dL (60-115)
[2025-06-30 08:52] VITALS: BP 115/76
--- NOTE | 2025-06-30 11:42 | PM.PSYDC ---
DS: Providers Provider Date of Service: 06/30/25 Date of admission: 06/23/25 13:43 Date of discharge: 06/30/25 Primary care physician: [facility] Attending physician on admission: Josh Chaparro Consults: 06/27/25 09:27 Consult to Hospitalist Routine Comment: Consulting Provider: [facility] Reason For Exam: newly dx DM; not capable handle insulin; alt meds 06/27/25 11:15 Consult to Comprehensive Care Routine Consulting Provider: [facility] Attending physician on discharge: Josh Chaparro DS: Diagnosis Discharge Diagnosis (1) Bipolar disorder: Status: Acute (2) PTSD (post-traumatic stress disorder): Status: Acute (3) Alcohol use disorder: Status: Acute (4) Diabetes: Status: Acute DS: Medications Discharge Medications Home Medications: Previous Rx's ?Medication ?Instructions ?Recorded melatonin 3 mg tablet 6 mg (2 x 3 mg) PO BEDTIME PRN 06/23/25 Insomnia #60 tabs acamprosate 333 mg tablet,delayed 333 mg PO TID 30 days #90 tabs 06/30/25 release clonidine HCl 0.1 mg tablet 0.1 mg PO TID 30 days #90 tabs 06/30/25 gabapentin 800 mg tablet 800 mg PO TID 30 days #90 tabs 06/30/25 glipizide 2.5 mg tablet, extended 2.5 mg PO DAILY 30 days #30 tabs 06/30/25 release 24 hr hydroxyzine HCl 25 mg tablet 25 mg PO Q6H PRN mild anxiety 30 06/30/25 days #90 tabs metformin 750 mg tablet,extended 1,500 mg (2 x 750 mg) PO BEDTIME 06/30/25 release 24 hr 30 days #60 tabs nicotine (polacrilex) 4 mg gum 4 mg buccal Q2H PRN nicotine 06/30/25 cravings 30 days #100 ea oxcarbazepine 600 mg tablet 600 mg PO BID 30 days #60 tabs 06/30/25 trazodone 100 mg tablet 100 mg PO BEDTIME PRN Insomnia 30 06/30/25 days #30 tabs Mental Status Exam Mental Status Exam Narrative: Pt is alert and oriented; behavior cooperative, friendly and calm, and in good behavioral/impulse control; patient is not in distress; dressed in casual attire with good grooming and hygiene; mood is described as good and affect congruent, and remains overall brighter and calm; eye contact appropriate; Speech is normal rate, volume and prosody; no psychomotor agitation/retardation present; thought process is organized and goal directed; Thought content is on tx, discharge; otherwise pertinent to relevant topics and without any delusional content, paranoid ideations or grandiosity; denies any SI/HI. Denies AVH and there is no evidence of perceptual disturbance. Patients insight and judgment at baseline and fair and adequate Data Data Completed and Pending Completed studies during hospitalization [Text1]: 06/23/25 06/23/25 06/23/25 17:04 19:58 23:12 Sodium Potassium Chloride Carbon Dioxide Anion Gap BUN Creatinine Estim Creat Clear Calc Estimated GFR POC Glucose 393 H* 397 H* 293 H Random Glucose Estimat Average Glucose Hemoglobin A1c % C-Peptide Calcium Total Bilirubin AST ALT Alkaline Phosphatase Total Protein Albumin Triglycerides Cholesterol LDL Cholesterol, Calc HDL Cholesterol Urine Test Urine Opiates Screen Ur Buprenorphine Scrn Ur Oxycodone Screen Urine Methadone Screen Urine Fentanyl Screen Ur Barbiturates Screen Ur Phencyclidine Scrn Ur Amphetamines Screen U Benzodiazepines Scrn Urine Cocaine Screen U Marijuana (THC) Screen ROSANGELA Antibody 06/24/25 06/24/25 06/24/25 08:09 11:43 17:15 Sodium Potassium Chloride Carbon Dioxide Anion Gap BUN Creatinine Estim Creat Clear Calc Estimated GFR POC Glucose 300 H 342 H 298 H Random Glucose Estimat Average Glucose Hemoglobin A1c % C-Peptide Calcium Total Bilirubin AST ALT Alkaline Phosphatase Total Protein Albumin Triglycerides Cholesterol LDL Cholesterol, Calc HDL Cholesterol Urine Test Urine Opiates Screen Ur Buprenorphine Scrn Ur Oxycodone Screen Urine Methadone Screen Urine Fentanyl Screen Ur Barbiturates Screen Ur Phencyclidine Scrn Ur Amphetamines Screen U Benzodiazepines Scrn Urine Cocaine Screen U Marijuana (THC) Screen ROSANGELA Antibody 06/24/25 06/25/25 06/25/25 20:23 08:16 12:07 Sodium Potassium Chloride Carbon Dioxide Anion Gap BUN Creatinine Estim Creat Clear Calc Estimated GFR POC Glucose 295 H 228 H 341 H Random Glucose Estimat Average Glucose Hemoglobin A1c % C-Peptide Calcium Total Bilirubin AST ALT Alkaline Phosphatase Total Protein Albumin Triglycerides Cholesterol LDL Cholesterol, Calc HDL Cholesterol Urine Test Urine Opiates Screen Ur Buprenorphine Scrn Ur Oxycodone Screen Urine Methadone Screen Urine Fentanyl Screen Ur Barbiturates Screen Ur Phencyclidine Scrn Ur Amphetamines Screen U Benzodiazepines Scrn Urine Cocaine Screen U Marijuana (THC) Screen ROSANGELA Antibody 06/25/25 06/25/25 06/26/25 16:56 20:15 07:58 Sodium Potassium Chloride Carbon Dioxide Anion Gap BUN Creatinine Estim Creat Clear Calc Estimated GFR POC Glucose 224 H 191 H 193 H Random Glucose Estimat Average Glucose Hemoglobin A1c % C-Peptide Calcium Total Bilirubin AST ALT Alkaline Phosphatase Total Protein Albumin Triglycerides Cholesterol LDL Cholesterol, Calc HDL Cholesterol Urine Test Urine Opiates Screen Ur Buprenorphine Scrn Ur Oxycodone Screen Urine Methadone Screen Urine Fentanyl Screen Ur Barbiturates Screen Ur Phencyclidine Scrn Ur Amphetamines Screen U Benzodiazepines Scrn Urine Cocaine Screen U Marijuana (THC) Screen ROSANGELA Antibody 06/26/25 06/26/25 06/26/25 08:23 08:23 08:23 Sodium 138 Potassium 4.0 Chloride 104 Carbon Dioxide 26 Anion Gap 12 BUN 8 L Creatinine 0.59 0.57 Estim Creat Clear Calc 128.9 133.5 Estimated GFR > 60 POC Glucose Random Glucose Estimat Average Glucose Hemoglobin A1c % C-Peptide Calcium Total Bilirubin AST ALT Alkaline Phosphatase Total Protein Albumin Triglycerides Cholesterol LDL Cholesterol, Calc HDL Cholesterol Urine Test Urine Opiates Screen Ur Buprenorphine Scrn Ur Oxycodone Screen Urine Methadone Screen Urine Fentanyl Screen Ur Barbiturates Screen Ur Phencyclidine Scrn Ur Amphetamines Screen U Benzodiazepines Scrn Urine Cocaine Screen U Marijuana (THC) Screen ROSANGELA Antibody 06/26/25 06/26/25 06/26/25 08:23 12:06 17:12 Sodium Potassium Chloride Carbon Dioxide Anion Gap BUN Creatinine Estim Creat Clear Calc Estimated GFR > 60 POC Glucose 298 H 185 H Random Glucose 190 H Estimat Average Glucose 329 Hemoglobin A1c % 13.1 H C-Peptide Calcium 9.2 D Total Bilirubin 0.2 AST 23 ALT 24 Alkaline Phosphatase 86 Total Protein 6.9 Albumin 4.0 Triglycerides 76 Cholesterol 189 LDL Cholesterol, Calc 104 H HDL Cholesterol 70 Urine Test Urine Opiates Screen Ur Buprenorphine Scrn Ur Oxycodone Screen Urine Methadone Screen Urine Fentanyl Screen Ur Barbiturates Screen Ur Phencyclidine Scrn Ur Amphetamines Screen U Benzodiazepines Scrn Urine Cocaine Screen U Marijuana (THC) Screen ROSANGELA Antibody 06/26/25 06/26/25 06/27/25 20:29 23:11 08:09 Sodium Potassium Chloride Carbon Dioxide Anion Gap BUN Creatinine Estim Creat Clear Calc Estimated GFR POC Glucose 359 H* 177 H 191 H Random Glucose Estimat Average Glucose Hemoglobin A1c % C-Peptide Calcium Total Bilirubin AST ALT Alkaline Phosphatase Total Protein Albumin Triglycerides Cholesterol LDL Cholesterol, Calc HDL Cholesterol Urine Test Urine Opiates Screen Ur Buprenorphine Scrn Ur Oxycodone Screen Urine Methadone Screen Urine Fentanyl Screen Ur Barbiturates Screen Ur Phencyclidine Scrn Ur Amphetamines Screen U Benzodiazepines Scrn Urine Cocaine Screen U Marijuana (THC) Screen ROSANGELA Antibody 06/27/25 06/27/25 06/27/25 12:47 17:59 20:18 Sodium Potassium Chloride Carbon Dioxide Anion Gap BUN Creatinine Estim Creat Clear Calc Estimated GFR POC Glucose 268 H 340 H 230 H Random Glucose Estimat Average Glucose Hemoglobin A1c % C-Peptide Calcium Total Bilirubin AST ALT Alkaline Phosphatase Total Protein Albumin Triglycerides Cholesterol LDL Cholesterol, Calc HDL Cholesterol Urine Test Urine Opiates Screen Ur Buprenorphine Scrn Ur Oxycodone Screen Urine Methadone Screen Urine Fentanyl Screen Ur Barbiturates Screen Ur Phencyclidine Scrn Ur Amphetamines Screen U Benzodiazepines Scrn Urine Cocaine Screen U Marijuana (THC) Screen ROSANGELA Antibody 06/28/25 06/28/25 06/28/25 08:34 11:38 16:59 Sodium Potassium Chloride Carbon Dioxide Anion Gap BUN Creatinine Estim Creat Clear Calc Estimated GFR POC Glucose 144 H 210 H 332 H Random Glucose Estimat Average Glucose Hemoglobin A1c % C-Peptide Calcium Total Bilirubin AST ALT Alkaline Phosphatase Total Protein Albumin Triglycerides Cholesterol LDL Cholesterol, Calc HDL Cholesterol Urine Test Urine Opiates Screen Ur Buprenorphine Scrn Ur Oxycodone Screen Urine Methadone Screen Urine Fentanyl Screen Ur Barbiturates Screen Ur Phencyclidine Scrn Ur Amphetamines Screen U Benzodiazepines Scrn Urine Cocaine Screen U Marijuana (THC) Screen ROSANGELA Antibody 06/28/25 06/28/25 06/29/25 20:38 22:21 08:07 Sodium Potassium Chloride Carbon Dioxide Anion Gap BUN Creatinine Estim Creat Clear Calc Estimated GFR POC Glucose 247 H 151 H Random Glucose Estimat Average Glucose Hemoglobin A1c % C-Peptide Calcium Total Bilirubin AST ALT Alkaline Phosphatase Total Protein Albumin Triglycerides Cholesterol LDL Cholesterol, Calc HDL Cholesterol Urine Test Urine Opiates Screen Not Detected Ur Buprenorphine Scrn Not Detected Ur Oxycodone Screen Not Detected Urine Methadone Screen Not Detected Urine Fentanyl Screen Not Detected Ur Barbiturates Screen POSITIVE H Ur Phencyclidine Scrn Not Detected Ur Amphetamines Screen Not Detected U Benzodiazepines Scrn POSITIVE H Urine Cocaine Screen Not Detected U Marijuana (THC) Screen Not Detected ROSANGELA Antibody 06/29/25 06/29/25 06/29/25 08:14 12:33 13:39 Sodium 136 Potassium 4.5 Chloride 103 Carbon Dioxide 26 Anion Gap 12 BUN 9 Creatinine 0.60 Estim Creat Clear Calc 126.8 Estimated GFR > 60 POC Glucose 167 H Random Glucose 144 H Estimat Average Glucose Hemoglobin A1c % C-Peptide Pending Calcium 8.8 Total Bilirubin AST ALT Alkaline Phosphatase Total Protein Albumin Triglycerides Cholesterol LDL Cholesterol, Calc HDL Cholesterol Urine Test NEGATIVE Urine Opiates Screen Ur Buprenorphine Scrn Ur Oxycodone Screen Urine Methadone Screen Urine Fentanyl Screen Ur Barbiturates Screen Ur Phencyclidine Scrn Ur Amphetamines Screen U Benzodiazepines Scrn Urine Cocaine Screen U Marijuana (THC) Screen ROSANGELA Antibody Pending 06/29/25 06/30/25 19:38 08:40 Sodium Potassium Chloride Carbon Dioxide Anion Gap BUN Creatinine Estim Creat Clear Calc Estimated GFR POC Glucose 283 H 196 H Random Glucose Estimat Average Glucose Hemoglobin A1c % C-Peptide Calcium Total Bilirubin AST ALT Alkaline Phosphatase Total Protein Albumin Triglycerides Cholesterol LDL Cholesterol, Calc HDL Cholesterol Urine Test Urine Opiates Screen Ur Buprenorphine Scrn Ur Oxycodone Screen Urine Methadone Screen Urine Fentanyl Screen Ur Barbiturates Screen Ur Phencyclidine Scrn Ur Amphetamines Screen U Benzodiazepines Scrn Urine Cocaine Screen U Marijuana (THC) Screen ROSANGELA Antibody DS: Summary Hospital Course Hospital Course: HPI: Patient is a 29-year-old female with history of recorded bipolar disorder, seizure disorder, PTSD, alcohol abuse who presents for suicidal statements in the face of alcohol relapse and psychosocial stressors; patient 1st admitted to the medical floor for detox with phenobarbital which she refused, saying she only wanted IV Valium; patient needed to be chemically restrained while on the medical floor. She now comes to the psychiatric unit. She is calm. Patient reports that she was sober for 2 years, going to meetings, taking medications, doing good... working and remained stable. However She had a miscarriage 3 weeks ago at 5 months and relapsed with alcohol drinking excessively; she presented to the ED on 06/11 for detox but left prematurely and continue drinking. About a week ago she found out her kids got adopted and patient became dysregulated, stopped taking all her medications. Patient acknowledges she did make a suicidal statement but reports she was not really suicidal and even though she said she would shoot herself she said she did not mean it, does not have a shot gun and just said it because I was mad.. Patient's father concurs that patient does not have access to a gun. Patient says she remains in withdrawal and wants Valium and says I want to feel sedated... due to overwhelming sadness of having her children now irreversibly adopted. Hospital course/Formulation/clinical reasoning: On admission Patient guarded and irritable and difficult with which to engage. She is mostly focused on having Valium order increased. Review of chart indicates that patient has indeed been drinking for weeks, having presenting on 06/11 for detox and then again 9 days later; patient was treated on the medical floor for few days but refused phenobarbital. Seems reasonable that patient remains with residual withdraw symptoms from alcohol and so brief writer agrees to increase Valium to 10 mg t.i.d. for several days and then taper off (patient also has seizure disorder and has been off antiepileptics until this hospitalization). Patient's potential need for benzos for detox is also easily confused with her desire to feel overly sedated to avoid upsetting thoughts; thus will schedule benzos. Regarding home medications of Trileptal and gabapentin, patient was eventually able to confirm that these medications, used for seizure disorder, were also helpful for mood, in addition to p.r.n. clonidine hydroxyzine; both continued in Trileptal increased to home dose (also no seizures for 2 years on these meds) -on admission, patient was discovered to be diabetic with hemoglobin A1c of 13. Hospitalist team started on metformin and sliding scale; concern that patient would struggle to manage insulin and sliding scale so discussed option of transitioned her to oral antihyperglycemics. Patient started to improve; remained without any SI and confirmed that she never had any plans to actually harm herself. Patient will struggling with depression and anxiety. Throughout her time in the unit she intermittently had regressed behaviors, could be demanding, pleading... Some staff splitting; some overly flirtatious behavior with both male and female peers needing frequent redirection. Patient also intermittently seems sedated however this was likely due to Valium administration and this sedation lessened as Valium was tapered and discontinued. Patient was forthcoming in 1 on 1 sessions and mostly engaged in treatment; discussed her struggles with anger and after review of risks/side effects of antipsychotic medications verse other medication options, patient agreed to trial of Risperdal which was titrated and seemed to be helpful. Patient's behaviors improved; depression abated and patient again became hopeful and optimistic that she will be able to remain sober and stable. 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 Initially patient placed a 3 day notice but retracted it in order to remain on the unit for continued stabilization and aftercare set up. Regarding diabetes, patient responded to education and started trying to limit her sugar intake; metformin increased and patient started on glipizide, the combination significantly lowering her sugars and enabling her to be discharged without insulin (team, brief writer remained with considerable concerns that patient would not be able to manage insulin on her own; PCP appointment made for patient who can continue to discuss diabetes management). 06/28 Patient remains doing much better; still can be demanding, some staff splitting. Took Acamproset today and said it made her little dizzy but she wants to keep taking it. Discussed risperidone and how it is helping her behavioral control and she agrees to increase dose. Discussed diabetes and effort to help her control her blood sugars with oral medications instead of insulin to which she degrees; brief writer discussed with hospitalist radu who also met with patient who agreed to try glipizide (risks/side effects reviewed with patient) -patient overall in good behavioral/impulse control though at times has regressed behaviors; sometimes looks sedated, likely due to long-acting Valium which is being tapered 06/29 Patient reports that she is good and is looking forward to going tomorrow, very hopeful that she will get a primary care in time. Feels that medications have been helpful and is tolerating them well, though Acamproset seems to be causing nausea, patient feels that it is very helpful and wants to continue. Pleased to hear that her sugars have improved with glipizide (brief writer again reviewed risks/side effects which she understands; patient also cites the fact that she has her father to help with medications whom she finds supportive). Patient talked about her struggles with substance abuse and how much she really wants to stay sober and her plans for continuing to do so; discussed risks of metformin including if combined with alcohol abuse, which patient understands and reiterates her plan is to remain sober. Patient also thankful for help received on the unit. 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 Comprehensive care team saw patient and has an outpatient appointment set up for her as well. -Since getting on glipizide, patient's blood sugars have been much improved. Nursing staff provided diabetes education including diet and since then she has been working towards limiting her sugar intake and has her family bringing her sugar free Gatorade/coke, returning the cookies on her meal tray... Patient has a primary care appointment with her new PCP dr. Rodriguez on July 06. Patient has returned to baseline. She is looking forward to discharge. She is in good mood, future oriented and looking forward to seeing her kids and is eager to re-engage in treatment in the community with appointments pending. She is tolerating medication (with some tolerable nausea from Acamproset). Patient is returning home where she lives with her boyfriend and father whom are both supportive. Patient of course remains vulnerable to relapse with alcohol and decompensation however this is a chronic struggle for her, 1 which will not resolve with longer stay on inpatient unit but rather requires consistent outpatient treatment and sobriety, both of which patient is eager to engage. Patient is not in imminent risk for harm to self or others and appropriate to return to the community for treatment. Her request for discharge honored. Medications: Restarted on Trileptal 600 mg b.i.d. for seizure disorder Restarted on gabapentin 800 mg t.i.d. for seizure disorder e) Restarted on clonidine 0.1 mg t.i.d. Started on Risperdal 0.5 mg t.i.d. will increase Started on Acamproset [id number] (BUN/CR WNL) Started on glipizide 2.5 mg daily Started on metformin ER 1500 mg q.h.s. (risks/side effects of all medication reviewed including antipsychotic which patient understood) Time spent discussing smoking cessation with patient: 3 to 10 minutes Status at Discharge Functional status at discharge: independent ambulation Overall status at discharge: patient is back to baseline Time Spent with Patient Time attestation: Total time managing care of this patient today __50__ minutes. Specific discharge activities: Met with patient; discussed with team; charting; prescriptions Discharge Plan Discharge Anticipated Discharge Date/Time: 06/30/25 11:30 Patient Disposition: Home, Self-Care Discharge Diagnosis: Bipolar disorder Referrals: [facility] Psychiat[facility] Intake [Other] - 1 Day Referral Note: You will need to come in for an intake in order to secure a psychiatry appointment. It is advised that you go as soon as you are able to the intake as there will be a waitlist for psychiatry providers. They can also help with assistant women's soccer coach and anger management referrals. Walk-In Hours: M-F 08-12 and 1-4 [facility] [Other] - 1 Day Referral Note: You can call to set up an intake or walk-in. Walk-In Hours: M-F 9-12 and 1-4 [facility] [Other] - 1 Day Referral Note: Call or walk in for recovery support. Walk-in Hours: - and 1-4 [facility] with Lisy Presley [Other] - 07/12/25 12:30 pm [facility] [Other] - 07/04/25 10:30 am Referral Note: Come into the main lobby and person at the entry level receptionist desk to direct you to the [facility]. Michael Mitchell NP [Nurse Practitioner, Internal Medicine] - 07/06/25 4:00 pm Discharge Medications: New acamprosate 333 mg Tablet,Delayed Release (Dr/Ec) 333 mg PO TID 30 Days Qty: 90 0RF hydroxyzine HCl 25 mg Tablet 25 mg PO Q6H PRN (Reason: mild anxiety) 30 Days Qty: 90 0RF trazodone 100 mg Tablet 100 mg PO BEDTIME PRN (Reason: Insomnia) 30 Days Qty: 30 0RF glipizide 2.5 mg Tablet Extended Release 24hr 2.5 mg PO DAILY 30 Days Qty: 30 0RF metformin 750 mg Tablet Extended Release 24 Hr 1,500 mg PO BEDTIME 30 Days Qty: 60 0RF nicotine (polacrilex) 4 mg gum 4 mg buccal Q2H PRN (Reason: nicotine cravings) 30 Days Qty: 100 0RF oxcarbazepine 600 mg tablet 600 mg PO BID 30 Days Qty: 60 0RF Continued melatonin 3 mg Tablet 6 mg PO BEDTIME PRN (Reason: Insomnia) Qty: 60 0RF clonidine HCl 0.1 mg tablet 0.1 mg PO TID 30 Days Qty: 90 0RF gabapentin 800 mg tablet 800 mg PO TID 30 Days Qty: 90 0RF Discontinued multivitamin with folic acid [Daily-Damon (with folic acid)] 400 mcg tablet 1 tab PO DAILY oxcarbazepine 150 mg Tablet 150 mg PO BID Qty: 30 0RF insulin glargine [Lantus U-100 Insulin] 100 unit/mL Solution 10 unit subcut BEDTIME Qty: 30 0RF hydroxyzine HCl 50 mg Tablet 50 mg PO Q8H PRN (Reason: Anxiety) Qty: 30 0RF diazepam 2 mg Tablet 5 mg PO Q6H PRN (Reason: Anxiety) Qty: 30 0RF insulin lispro [Admelog U-100 Insulin lispro] 100 unit/mL Solution See Protocol subcut QIDACHS Qty: 30 0RF Protocol: Insulin Correction Scale Less than or equal to 110 ---- Give (units): 0 111 to 150 Give (units): 0 151 to 200 Give (units): 2 201 to 250 Give (units): 4 251 to 300 Give (units): 6 301 to 350 Give (units): 8 Greater than 350 Give (units): 10 Call MD if Blood Glucose > : 350 metformin 500 mg tablet 500 mg PO BIDWMEAL Qty: 60 0RF Discharge Orders: Discharge Order (Routine); Ordered 06/30/25 Ordered By: Josh Chaparro Diet: Diabetic diet Activity on Discharge: As tolerated Stand Alone Forms: Patient Portal Discharge page, Community Support Print Language: Barbadian Care Plan Goals: Maintain mood and safe behaviors Take medications as prescribed Continue to pursue sobriety Practice coping skills Continue with outpatient providers and reach out to them as needed Health Concerns: Mood stability and behaviors Sobriety Diabetes (newly diagnosed) Plan of Treatment: Follow up with your PCP, psychiatric provider and other outpatient providers regarding above concerns Take medications as prescribed Assessment: Risk assessment at time of discharge:? Patient was interviewed prior to discharge and found to be fully oriented and without any SI or HI. Patient has improved insight and judgment and wants to continue treatment. Patient is not in imminent risk of harm to self or others and has a safety plan that includes presenting to the closest ER or calling 911 if feeling unsafe.? Patient has been observed closely by nursing and unit staff throughout admission; patient has not engaged in any behaviors that suggest dangerousness to self or others and has demonstrated appropriate behaviors and impulse control Discharge Date/Time: 06/30/25 11:30
== END 2025-06-30 11:30 | disposition home or self-care (01) | DRG 753 ==
PROVIDERS: Nurse Practitioner Family; Nurse Practitioner Psychiatric/Mental Health; Admitting Provider Psychiatry & Neurology Psychiatry; PCP Dentist General Practice; Visit Provider Psychiatry & Neurology Psychiatry
DX: F31.9 Bipolar disorder, unspecified (principal); E11.9 Type 2 diabetes mellitus without complications; R45.851 Suicidal ideations; F17.210 Nicotine dependence, cigarettes, uncomplicated; G40.909 Epilepsy, unspecified, not intractable, without status epilepticus; F10.90 Alcohol use, unspecified, uncomplicated; F43.10 Post-traumatic stress disorder, unspecified; Z91.148 Patient's other noncompliance with medication regimen for other reason; Z71.6 Tobacco abuse counseling; Z79.84 Long term (current) use of oral hypoglycemic drugs; Z79.899 Other long term (current) drug therapy
CPT/HCPCS: 36415; 80048; 80053; 80061; 80307; 81025; 82565; 82947; 83036; 84681; 86341

== ENCOUNTER → 2025-06-23 13:43 | Outpatient (BNV) | payer MEDICAID, SELFPAY | PROVIDERS: Admitting Provider Psychiatry & Neurology Psychiatry; PCP Dentist General Practice; Visit Provider Nurse Practitioner Family | DX: E11.65 Type 2 diabetes mellitus with hyperglycemia (principal) | CPT/HCPCS: 99232 ==

== ENCOUNTER → 2025-06-23 13:43 | Outpatient (BNV) | payer OTHER, SELFPAY | PROVIDERS: Admitting Provider Psychiatry & Neurology Psychiatry; PCP Dentist General Practice; Visit Provider Psychiatry & Neurology Psychiatry | DX: F31.4 Bipolar disorder, current episode depressed, severe, without psychotic features (principal); F43.11 Post-traumatic stress disorder, acute; F10.90 Alcohol use, unspecified, uncomplicated; E11.9 Type 2 diabetes mellitus without complications | CPT/HCPCS: 99231; 99232 ==

== ENCOUNTER 2025-08-13 13:41 | Inpatient (IN) | payer MEDICAID, SELFPAY ==
--- NOTE | ~2025-08-13 | CT_ITS ---
CLINICAL HISTORY: epigastric pain CT abdomen and pelvis with contrast Comparison: None provided Findings: LIMITED CHEST: Lung bases are clear. LIVER: No focal liver lesion. BILIARY: No gallbladder wall thickening, radiopaque stone, or ductal dilatation. PANCREAS: Parenchymal atrophy with scattered calcifications, may represent sequela of prior pancreatitis. SPLEEN: No splenomegaly. KIDNEYS: No hydronephrosis or radiopaque stone. Duplicated right collecting system. ADRENALS: No nodule. VASCULAR: No aneurysm. RETROPERITONEUM: No lymphadenopathy or mass. BOWEL/MESENTERY: Mild circumferential thickening of the distal esophagus. Normal appendix. Majority of the colon is underdistended limiting evaluation. ABDOMINAL WALL: No mass or significant abnormality. URINARY BLADDER: Circumferential thickening may be due to underdistention. PELVIC NODES: No pelvic lymphadenopathy. PELVIC ORGANS: Normal for age. BONES: No acute fracture. OTHER: Negative. IMPRESSION: 1. Circumferential thickening of the esophagus, nonspecific however may represent esophagitis or GERD. 2. Pancreatic atrophy with scattered calcifications likely represent sequela of prior prostatitis. Additional findings as above. This document has been electronically signed by: Gloria Castro MD on 08/13/2025 21:25:06
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
--- NOTE | ~2025-08-13 | CT_ITS ---
EXAMINATION: CT HEAD WITHOUT CONTRAST CLINICAL INFORMATION: fall COMPARISON: July 22, 2023 TECHNIQUE: Contiguous axial imaging was performed from the skull base to vertex without intravenous administration of contrast. This CT examination was performed using dose optimization techniques as appropriate, variously including the following: *Automated exposure control *Adjustment of mA and/or kV according to patient size (this includes techniques or standardized protocols for targeted exams where dose is matched to indication/reason for exam; i.e. extremities or head) *Use of iterative reconstruction technique DLP: 629 mGy-cm FINDINGS: No gross acute cortical disruption within the bony calvarium or the skull base. Old traumatic deformity, left maxillofacial bones. No acute intracranial hemorrhage, mass effect, midline shift, hydrocephalus or herniation. Everett-white matter differentiation is normal. Sellar/suprasellar region demonstrated no gross masses or hemorrhage. Posterior cranial fossa contents demonstrated no acute hemorrhage or mass effect. Normal position of the cerebellar tonsils. No hematoma is in the intraconal or the extraconal compartments of the orbits. Polypoid mucosal thickening, paranasal sinuses. Tympanic cavities and mastoid air cells are aerated. CT/CT head/brain wo IV con IMPRESSION: No acute fracture, bony calvarium. No acute intracranial hemorrhage. Electronically signed by: David Ramos MD 08/15/2025 09:52 AM EDT
--- NOTE | ~2025-08-13 | XR_ITS ---
CLINICAL HISTORY: pain --- Additional Notes or Special Instructions: not ready- 1804, 1825 3 view right wrist Comparison: None provided Findings: No fractures or dislocations. No significant arthritic change or erosions. No radiopaque foreign body. IMPRESSION: 1. No acute fracture. This document has been electronically signed by: Gloria Castro MD on 08/13/2025 20:17:44
[2025-08-13 13:58] VITALS: BP 116/75; PULSE 103; RESP 18; TEMP 36.8; O2SAT 93
[2025-08-13 14:05] VITALS: BMI 24.0
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
[2025-08-13 14:11] VITALS: BMI 26.6
--- OUTSIDE RECORDS SUMMARY | 2025-08-13 14:23 | XMS_ITS | Clinical Summary ---
Author Organization [employer] [facility] Address [address] [place] [address] Care Team Providers Care Social Worker Health Services Name Role Phone Unavailable Primary Care Provider Unavailabl e Encounters Date Type Department Care Team Description 06/21/2025 Population Health Risk Score Formerly [facility] Care [facility] (C3) Department [address] [facility] [address] [place] [address] Provider, Population Health Generic from Last 3 Months Social History Tobacco Use Types Packs/Day Years Used Date Smoking Tobacco: Never Assessed Comments Unknown Sex and Gender Information Value Date Recorded Sex Assigned at Not on file Legal Sex Female 9:28 PM EDT Gender Identity Not on file Sexual Orientation Not on file Plan of Treatment Health Maintenance Due Date Last Done Comments Depression Screening 1995 SDOH Screening 1995 Disability Screening 1995 Alcohol/Substance Use Screening 2007 Tobacco Screening 2007 Family Planning (PISQ) 2010 HPV Vaccines (1 - 3-dose series) 2010 Hepatitis C Screening 2013 DTaP/Tdap/Td Vaccines (1 - Tdap) 2014 Hepatitis B Vaccines (1 of 3 - 19+ 3-dose series) 2014 Pap Smear 2016 COVID-19 Vaccine (1 - 2023-2 5 season) 2025 Influenza Vaccine (#1) 2025 Zoster Vaccines (1 of 2) 2045 RSV Patients and Patients Aged 60 years or older (1 - 1-dose 75+ series) 2070 HIV Screening Completed 08/02/2025, 08/02/2025 HIB Vaccines Aged Out No longer eligi ble based on patient's age to complete this topic Hepatitis A Vaccines Aged Out No long er eligible based on patient's age to complete this topic IPV Vaccines Aged Out No longer eligi ble based on patient's age to complete this topic Meningococcal B Vaccine Aged Out No l onger eligible based on patient's age to complete this topic Meningococcal Vaccine Aged Out No mel julieth eligible based on patient's age to complete this topic Pneumococcal Vaccine: Pediatrics (0 to 5 Years) and At-Risk Patients (6 to 49) Years Aged Out No longer eligible b ased on patient's age to complete this topic RSV under 20 months Aged Out No longe r eligible based on patient's age to complete this topic Rotavirus Vaccines Aged Out No longer eligible based on patient's age to complete this topic
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
--- OUTSIDE RECORDS SUMMARY | 2025-08-13 14:23 | XMS_ITS | Clinical Summary ---
Author Organization [facility] Address [address] [place] [address] Care Team Providers Care Metal Cnc Operator Name Role Phone Michael Mitchell NP Primary Care Provider Source Comments PLEASE NOTE, if this patient is a minor, it may be UNLAWFUL to discuss sensitive information that is contained in these records (such as FAMILY PLANNING, MENTAL HEALTH or SUBSTANCE ABUSE) with the minor patient's parent or other person without the patient's specific authorization.[facility] Allergies Active Allergy Reactions Criticality Noted Date Comments Shellfish Containing Products Hives,Rash,Itching Low 07/18/2025 Medications OXcarbazepine (TRILEPTAL) 600 mg tabletIndicatio ns:History of seizure Take 1 Tablet by mouth 2 (two) times daily. 180 Tablet 1 5 Active gabapentin (NEURONTIN) 800 mg tabletIndicatio ns:Chronic pain of both knees Take 1 Tablet by mouth 3 (three) times daily. 90 Tablet 3 5 Active diclofenac sodium (VOLTAREN) 1 % gelIndications: Chronic pain of both knees Apply topically 2 (two) times daily. 100 g 2 5 Active cloNIDine (CATAPRES) 0.1 mg tabletIndicatio ns:Generalized anxiety disorder Take 1 Tablet by mouth 2 (two) times daily. 60 Tablet 1 5 Active hydrOXYzine pamoate (VISTARIL) 100 mg capsuleIndicati ons:Generalized anxiety disorder Take 1 Capsule by mouth 4 (four) times daily as needed for anxiety. 120 Capsule 2 5 Active glipiZIDE 2.5 mg tab Take by mouth. Active meclizine (ANTIVERT) 25 mg tablet Take 1 Tablet by mouth 2 (two) times daily as needed for nausea. 30 Tablet 5 Active gabapentin (NEURONTIN) 600 mg tablet Take 600 mg by mouth 3 (three) times daily 3 07/18/20 25 Discontinu ed(Therapy completed/ Not needed) divalproex (DEPAKOTE ER) 500 mg 24 hr tablet Take 1 Tablet by mouth nightly at bedtime for 30 days 30 Tablet 3 07/18/20 25 Discontinu ed(Therapy completed/ Not needed) hydrOXYzine HCL (ATARAX) 25 mg tablet Take 1 Tablet by mouth 3 (three) times daily as needed for anxiety for up to 30 days 90 Tablet 3 07/18/20 25 Discontinu ed(Therapy completed/ Not needed) naltrexone (DEPADE) 50 mg tablet Take 1 Tablet by mouth once daily for 30 days 30 Tablet 3 07/18/20 25 Discontinu ed(Therapy completed/ Not needed) hydrOXYzine HCL (ATARAX) 25 mg tabletIndicatio ns:Generalized anxiety disorder Take 1 Tablet by mouth 3 (three) times daily as needed for anxiety. 90 Tablet 3 5 08/02/20 25 Discontinu ed(Cancell ed) cloNIDine (CATAPRES) 0.1 mg tablet Take 0.1 mg by mouth 3 (three) times daily. 5 08/02/20 25 Discontinu ed(Cancell ed) cloNIDine (CATAPRES) 0.1 mg tabletIndicatio ns:Generalized anxiety disorder Take 1 Tablet by mouth 2 (two) times daily. 60 Tablet 1 5 08/02/20 25 Discontinu ed(Cancell ed) pyridoxine, vitamin B6, 25 mg tabletIndicatio ns:Nausea Take 1 Tablet by mouth every 8 (eight) hours as needed for other reason (nausea). 30 Tablet 1 5 08/02/20 25 Discontinu ed(Cancell ed) pyridoxine, vitamin B6, 25 mg tabletIndicatio ns:Nausea Take 1 Tablet by mouth every 8 (eight) hours as needed for other reason (nausea). 30 Tablet 1 5 08/03/20 25 Discontinu ed(Cancell ed) Active Problems Problem Noted Date Diagnosed Date Bipolar I disorder ([facility]) 09/04/2023 Alcohol use disorder, severe ([facility]) 03/2023 Generalized anxiety disorder 09/04/2023 Encounters Date Type Department Care Team Description 08/04/2025 Results Follow-Up [address] [phone] Michael Mitchell NP 08/02/2025 1:20 PM EDT Office Visit [address] [phone] Michael Mitchell NP 07/18/2025 2:20 PM EDT Office Visit [address] [phone] Michael Mitchell NP 06/23/2025 Interim Notes [address] [phone] Rosemary Lam 06/20/2025 Interim Notes [address] [id number] Rosemary Lam from Last 3 Months Family History Medical History Relation Name Comments Kidney Cancer Mother Relation Name Status Comments Father Alive Mother Social History Tobacco Use Types Packs/Day Years Used Date Smoking Tobacco: Every Day Cigarettes Passive Smoke Exposure: Never Smokeless Tobacco: Never Tobacco Cessation:Ready to Q uit: Not Asked; Counseling Given: Not Answered Alcohol Use Standard Drinks/Week Comments Not Currently [...] Orientation Straight 07/18/2025 11 :29 AM PDT Last Filed Vital Signs Vital Sign Reading Time Taken Comments Blood Pressure 98/62 08/02/2025 1:04 PM EDT Pulse 60 08/02/2025 1:04 PM EDT Temperature 36.9 C (98.4 F) 07/18/2025 2:29 PM EDT Respiratory Rate 18 08/02/2025 1:04 PM EDT Oxygen Saturation 98% 07/18/2025 2:29 PM EDT Inhaled Oxygen Concentration - - Weight 64.9 kg (143 lb) 08/02/2025 1:04 PM EDT Height 160.2 cm (5' 3.07 ) 08/02/2025 1:04 PM ED T Body Mass Index 25.28 08/02/2025 1:04 PM EDT Plan of Treatment Health Maintenance Due Date Last Done Comments HPV Screening 1995 Pap + HPV 1995 Relationship Safety Screening/Counseling 2010 Imm-Hepatitis B (1 of 3 - 19 + 3-dose series) 2014 Imm-Pneumococcal (1 of 2 - PCV) 2014 Cervical Cancer Screening 2016 Pap Smear 2016 Fao-CIESB-18 () 08/01/2025 Imm-Influenza (#1) 2025 12/01/2021 Depression Monitoring 10/18/2025 07/18/2025 Anxiety Screening 07/18/2026 07/18/2025 Tobacco Cessation Counseling (#1) 07/18/2026 025 Diabetes Screening 08/02/2026 08/02/2025, 0 06/20/2025, 06/16/2025 Hypertension Screening (#1) 08/02/2026 Imm-DTaP/Tdap/Td (2 - Td or Tdap) 01/31/2030 020 Alcohol and Drug Screen Completed 07/18/2025 HIV Screening Completed 08/02/2025 Hepatitis C Screening Completed 08/02/2025 Cervical Ablation/Cold-Knife Conization Discontinued Cervical Cryotherapy Discontinued Colposcopy Discontinued Endometrial Biopsy Discontinued Excision/Leep Discontinued HPV Genotyping Discontinued Vaginal Pap Discontinued Vulvoscopy Discontinued Procedures Procedure Name Priority Date/Time Associated Diagnosis Comments GONADOTROPIN CHORIONIC QUALITATIVE Routine 08/02/2025 1:49 PM EDT COMPREHENSIVE METABOLIC PANEL Routine 08/02/2025 1:49 PM EDT Screening for heart disease TSH W/RFLX FREE T4 Routine 08/02/2025 1: 49 PM EDT Screening for heart disease LIPID PANEL Routine 08/02/2025 1:49 PM EDT Screening for heart disease HIV 1/2 AG & AB W/RFLX (4TH GEN) Routine 08/02/2025 1:49 PM EDT Venereal disease screening HEPATITIS C AB W/RFLX HCV RNA, QT, RT PCR Routine 08/02/2025 1:49 PM EDT Venereal disease screening HEPATITIS B SURF ANTIBODY HBSAB Routine 08/02/2025 1:49 PM EDT Need for hepatitis B screening test HEPATITIS B CORE ANTIBODY HBCAB IGM ANTIBODY Routine 08/02/2025 1:49 PM EDT Need for hepatitis B screening test HEPATITIS B SURFACE AG, EIA WITH REFLEX CONFIRM Routine 08/02/2025 1:49 PM EDT Need for hepatitis B screening test from Last 3 Months Results * HEPATITIS C AB W/RFLX HCV RNA, QT, RT PCR Routine (08/02/2025 1:49 PM EDT) HEPATITIS C ANTIBODY NON-REACT JEFF NON-REACT JEFF 08/03/2025 6:44 AM EDT [facility] Blood Blood / Unknown 08/02/2025 1 :49 PM EDT 08/03/2025 4:47 AM EDT Narrative [facility] - 08/03/2025 7:13 AM EDT FASTING:NO . HCV antibody was non-reactive. There is no laboratory evidence of HCV infection. . In most cases, no further action is required. However, if recent HCV exposure is suspected, a test for HCV RNA (test code 78985) is suggested. . For additional information please refer to http://education.Datalot/faq/AEE74u6 (This link is being provided for informational/ educational purposes only.) . [facility] LAB - BLOOD DRAW Final Result Performing Organization Address [facility] de Phone Number [facility] [address] [address], [employer] [place] [address] [address] * HIV 1/2 AG & AB W/RFLX (4TH GEN) Routine (08/02/2025 1:49 PM EDT) HIV Screen Final SEE NOTE 08/03/2025 6:44 AM EDT [facility] HIV AG/AB, 4TH GEN NON-REACT JEFF NON-REACT JEFF 08/03/2025 6:44 AM EDT [facility] Blood Blood / Unknown 08/02/2025 1 :49 PM EDT 08/03/2025 4:49 AM EDT Narrative [employer] [facility] - 08/03/2025 7:13 AM EDT FASTING:NO HIV Negative . HIV-1 antigen and HIV-1/HIV-2 antibodies were not detected. There is no laboratory evidence of HIV infection. [employer] [facility] LAB - BLOOD DRAW Final Result Performing Organization Address [facility] de Phone Number [facility] [address] [address], [facility] [address] [address] * TSH W/RFLX FREE T4 Routine (08/02/2025 1:49 PM EDT) TSH W/REFLEX TO FT4 1.04 mIU/L 08/03/2025 6:41 AM EDT [employer] [facility] Blood Blood / Unknown 08/02/2025 1 :49 PM EDT 08/03/2025 4:47 AM EDT [employer] [facility] - 08/03/2025 7:13 AM EDT FASTING:NO Reference Range . > or = 20 Years 0.40-4.50 . Ranges First trimester 0.26-2.66 Second trimester 0.55-2.73 Third trimester 0.43-2.91 [facility] LAB - BLOOD DRAW Final Result Performing Organization Address [facility] de Phone Number [facility] [address] [address], [facility] [address] [address] * HEPATITIS B SURFACE AG, EIA WITH REFLEX CONFIRM Routine (08/02/2025 1:49 PM EDT) HEPATITIS B SURFACE ANTIGEN NON-REACT JEFF NON-REACT JEFF 08/03/2025 6:44 AM EDT [facility] Blood Blood / Unknown 08/02/2025 1 :49 PM EDT 08/03/2025 4:47 AM EDT Narrative [employer] [facility] - 08/03/2025 7:13 AM EDT FASTING:NO . For additional information, please refer to http://education.Datalot/faq/GHF094 (This link is being provided for informational/ educational purposes only.) . [facility] LAB - BLOOD DRAW Final Result Performing Organization Address [facility] Co de Phone Number [facility] [address] [address], [facility] [address] [address] * HEPATITIS B SURF ANTIBODY HBSAB Routine (08/02/2025 1:49 PM EDT) HEPATITIS B SURFACE ANTIBODY QL NON-REACT JEFF NON-REACT JEFF 08/03/2025 6:44 AM EDT [facility] Blood Blood / Unknown 08/02/2025 1 :49 PM EDT 08/03/2025 4:47 AM EDT [employer] [facility] - 08/03/2025 7:13 AM EDT FASTING:NO us Domoon Urielasi PERSONNEL ADMINISTRATOR LAB - BLOOD DRAW Final Result Performing Organization Address City/[facility]/ZIP Co de Phone Number [facility] [address] [address], [employer] [address] [address] * HEPATITIS B CORE ANTIBODY HBCAB IGM ANTIBODY Routine (08/02/2025 1:49 PM EDT) HEPATITIS B CORE IGM ANTIBODY NON-REACT JEFF NON-REACT JEFF 08/03/2025 6:44 AM EDT [facility] Blood Blood / Unknown 08/02/2025 1 :49 PM EDT 08/03/2025 4:47 AM EDT Narrative [facility] - 08/03/2025 7:13 AM EDT FASTING:NO . For additional information, please refer to http://education.Datalot/faq/CFT795 (This link is being provided for informational/ educational purposes only.) . [employer] Michael TELA Bio PERSONNEL ADMINISTRATOR LAB - BLOOD DRAW Final Result Performing Organization Address [facility]/ZIP Co de Phone Number [facility] [address] [address], [employer] [facility] [address] [address] * GONADOTROPIN CHORIONIC QUALITATIVE Routine (08/02/2025 1:49 PM EDT) CHORIONIC GONADOTROPIN, QUALITATIVE NEGATIVE 08/03/2025 6:41 AM EDT [facility] 08/02/2025 1:49 PM EDT 08/03/2025 4:47 AM EDT [email or web address] [facility] - 08/03/2025 7:13 AM EDT FASTING:NO Reference Range Non-: Negative : Positive . us Tallon Tomasi PERSONNEL ADMINISTRATOR LAB - BLOOD DRAW Final Result Performing Organization Address City/[facility]/ZIP Co de Phone Number [facility] [address] [address], [employer] [address] [address] * LIPID PANEL Routine (08/02/2025 1:49 PM EDT) CHOLESTEROL, TOTAL 161 <200 mg/dL 08/03/2025 7:37 AM EDT [facility] HDL CHOLESTEROL 64 > OR = 50 mg/dL 08/03/2025 7:37 AM EDT [facility] TRIGLYCERIDES 100 <150 mg/dL 08/03/2025 7:37 AM EDT [facility] LDL-CHOLESTEROL 78 mg/dL (calc) 08/03/2025 7:37 AM EDT [facility] CHOL/HDLC RATIO 2.5 <5.0 (calc) 08/03/2025 7:37 AM EDT [facility] NON-HDL CHOLESTEROL 97 <130 mg/dL (calc) 08/03/2025 7:37 AM EDT [facility] Blood Blood / Unknown 08/02/2025 1 :49 PM EDT 08/03/2025 5:20 AM EDT Narrative [facility] - 08/03/2025 7:38 AM EDT FASTING:NO Reference range: <100 . Desirable range <100 mg/dL for primary prevention; <70 mg/dL for patients with CHD or diabetic patients with > or = 2 CHD risk factors. . LDL-C is now calculated using the Antwan-Stef calculation, which is a validated novel method providing better accuracy than the Friedewald equation in the estimation of LDL-C. Antwan SS et al. RANDOLPH. 2013;310(19): 2243-0047 (http://education.[employer].Total Eclipse/faq/GLZ472) For patients with diabetes plus 1 major ASCVD risk factor, treating to a non-HDL-C goal of <100 mg/dL (LDL-C of <70 mg/dL) is considered a therapeutic option. us Michael Mitchell NP LAB - BLOOD DRAW Final Result [employer] [address] [place] [address], [employer] [address] [address] * (ABNORMAL) COMPREHENSIVE METABOLIC PANEL Routine (08/02/2025 1:49 PM EDT) GLUCOSE 291(H) 65 - 139 mg/dL 08/03/2025 7:37 AM [employer] [facility] UREA NITROGEN (BUN) 10 7 - 25 mg/dL 08/03/2025 7:37 AM [employer] [facility] CREATININE (blood) 0.62 0.50 - 0.96 mg/dL 08/03/2025 7:37 AM [employer] [facility] EGFR 124 > OR = 60 mL/min/1. 73m2 08/03/2025 7:37 AM [employer] [facility] BUN/CREATININE RATIO SEE NOTE: 6 - 22 (calc) 08/03/2025 7:37 AM [employer] [facility] SODIUM 138 135 - 146 mmol/L 08/03/2025 7:37 AM [employer] [facility] POTASSIUM 3.8 3.5 - 5.3 mmol/L 08/03/2025 7:37 AM [employer] [facility] CHLORIDE 102 98 - 110 mmol/L 08/03/2025 7:37 AM [employer] [facility] CARBON DIOXIDE 26 20 - 32 mmol/L 08/03/2025 7:37 AM [employer] [facility] CALCIUM 9.3 8.6 - 10.2 mg/dL 08/03/2025 7:37 AM [employer] [facility] PROTEIN, TOTAL 7.3 6.1 - 8.1 g/dL 08/03/2025 7:37 AM [employer] [facility] ALBUMIN 4.3 3.6 - 5.1 g/dL 08/03/2025 7:37 AM [employer] [facility] GLOBULIN 3.0 1.9 - 3.7 g/dL (calc) 08/03/2025 7:37 AM [employer] [facility] ALBUMIN/GLOBULI N RATIO 1.4 1.0 - 2.5 (calc) 08/03/2025 7:37 AM [employer] [facility] BILIRUBIN, TOTAL 0.3 0.2 - 1.2 mg/dL 08/03/2025 7:37 AM [employer] [facility] ALKALINE PHOSPHATASE 87 31 - 125 U/L 08/03/2025 7:37 AM [employer] [facility] AST 13 10 - 30 U/L 08/03/2025 7:37 AM EDT [facility] ALT 11 6 - 29 U/L 08/03/2025 7:37 AM EDT [facility] Blood Blood / Unknown 08/02/2025 1 :49 PM EDT 08/03/2025 5:20 AM EDT Narrative [facility] - 08/03/2025 7:38 AM EDT FASTING:NO . Non-fasting reference interval . Not Reported: BUN and Creatinine are within reference range. . us Michael Mitchell PERSONNEL ADMINISTRATOR LAB - BLOOD DRAW Final Result [facility] [address] [address], [facility] [address] [place] [address] from Last 3 Months Insurance [facility] [address] [employer] Care Teams Metal Cnc Operator Relationship Specialty Start Date End Date Michael Mitchell NP [address] [place] [address] PCP - General Family Medicine, PERSONNEL ADMINISTRATOR 08/02/25
--- OUTSIDE RECORDS SUMMARY | 2025-08-13 14:23 | XMS_ITS | Clinical Summary ---
Author Organization [facility] Address [address] [place] [address] Phone Care Team Providers Care Control Valve Technician Name Role Phone StephenMichael MARKO Primary Care Provider [phone] Allergies Active Allergy Reactions Criticality Noted Date Comments Quetiapine Seizures High 06/16/2025 Shellfish Containing Products 2024 Medications acetaminophen (TYLENOL) 325 mg tablet Take 2 tablets (650 mg total) by mouth. 03/24/2025 Active cloNIDine (CATAPRES) 0.1 mg tablet Take 1 tablet (0.1 mg total) by mouth. 06/10/2025 Active divalproex (DEPAKOTE ER) 500 mg 24 hr tablet take 2 tablet by mouth every night at bedtime Active gabapentin (NEURONTIN) 800 mg tablet Take 1 tablet (800 mg total) by mouth. 06/10/2025 Active hydrOXYzine pamoate (VISTARIL) 100 mg capsule TAKE 1 CAPSULE BY MOUTH FOUR TIMES A DAY NEEDED SPACE 8 HOURS BETWEEN DOSES 06/14/2025 Active ibuprofen (ADVIL,MOTRIN) 600 mg tablet Take 1 tablet (600 mg total) by mouth every 6 (six) hours. 03/24/2025 Active melatonin 5 mg tablet take 4 tablet by mouth every night at bedtime 06/08/2025 Active mirtazapine (REMERON) 15 mg tablet Take 1 tablet (15 mg total) by mouth. at bedtime 08/19/2024 Active Certavite-Antio xidant 18-400 mg-mcg tablet tablet Take 1 tablet by mouth 1 (one) time each day. 04/26/2025 Active Tri-Estarylla 0.18/0.215/0.25 mg-0.035mg (28) per tablet Take 1 tablet by mouth 1 (one) time each day. Active OXcarbazepine (TRILEPTAL) 600 mg tablet Take 1 tablet (600 mg total) by mouth 2 (two) times a day. 05/29/2025 Active valACYclovir (VALTREX) 1 gram tablet Take 1 tablet (1,000 mg total) by mouth 1 (one) time each day. for 5 days 04/22/2025 Active acamprosate (CAMPRAL) 333 mg EC tablet Take 1 tablet (333 mg total) by mouth. 07/14/2025 Active glipiZIDE (GLUCOTROL XL) 2.5 mg 24 hr tablet Take 1 tablet (2.5 mg total) by mouth 1 (one) time each day. 06/30/2025 Active hydrOXYzine HCL (ATARAX) 25 mg tablet TAKE 1 TABLET BY MOUTH EVERY 6 HOURS NEEDED FOR MILD ANXIETY FOR 30 DAYS 06/30/2025 Active metFORMIN XR (GLUCOPHAGE-XR) 750 mg 24 hr tablet Take 2 tablets (1,500 mg total) by mouth. at bedtime 06/30/2025 Active nicotine polacrilex (NICORETTE) 4 mg gum 4 MG IN BETWEEN CHEEKS EVERY 2 HOURS NEEDED FOR NICOTINE CRAVINGS FOR 30 DAYS 06/30/2025 Active risperiDONE (RisperDAL) 1 mg tablet Take 1 tablet (1 mg total) by mouth 2 (two) times a day. 06/30/2025 Active traZODone (DESYREL) 100 mg tablet TAKE 1 TABLET BY MOUTH EVERY DAY AT BEDTIME NEEDED FOR INSOMNIA FOR 30 DAYS 06/30/2025 Active Active Problems Problem Noted Date Diagnosed Date Abdominal pain 07/20/2025 Alcoholic hepatitis ([facility] V28) 07/20/2025 Alcoholic pancreatitis 07/20/2025 Anxiety 07/20/2025 Current smoker 07/20/2025 Influenza 07/20/2025 Marijuana use 07/20/2025 Underweight 07/20/2025 Alcohol dependence, uncompli cated ([facility] V24, [facility] V28) 09/04/2023 Bipolar I disorder ([facility] V24, [facility] V28) Generalized anxiety disorder 09/04/2023 GERD with esophagitis 12/14/2022 Encounters Date Type Department Care Team Description 06/20/2025 1:39 AM EDT - 06/20/2025 9:21 AM EDT Emergency [facility] Emergency [address] [place] [address] Kasey Wilks MD Hypokalemia (Primary Dx); Hypomagnesemia; Acute alcoholic intoxication without complication (CMS/HCC V24); Generalized abdominal pain; Alcohol use disorder Discharge Disposition: Home or Self Care 06/16/2025 8:02 AM EDT - 06/16/2025 11:58 AM EDT Emergency [facility] Emergency [address] [place] [address] Hyperglycemia (Primary Dx) Discharge Disposition: Home or Self Care 06/06/2025 Telephone [facility] [address] [place] [address] Lashay Shanks CNM 05/26/2025 [facility] [address] [place] [address] Hien Bryson, DILIP 05/26/2025 Telephone Obstetrics & Gynecology - [address] [phone] Deena Marshall CNM 05/25/2025 [facility] [address] [place] [address] Deena Marshall CNM 05/24/2025 Telephone [facility]s [facility] - [facility] [address] [place] [address] Hien Bryson, DILIP 05/19/2025 Telephone Obstetrics & Gynecology - [address] [phone] Deena Marshall CNM 05/17/2025 11:30 AM EDT Office Visit [facility] [address] [place] [address] Deena Marshall CNM examination or test, positive result (Primary Dx) from Last 3 Months Immunizations Name Administration Dates Next Due Influenza Quadrivalent, 0.5m l, preservative free (Fluarix; FluLaval; Fluzone) ages 6mo and older (Afluria) 3yo and older 12/01/2021 Tdap Tetanus diptheria acell ular pertussis (Boostrix; Adacel) 7yo and older 02/01/2020 Surgical History Surgery Date Site/Laterality Comments TONSILLECTOMY Medical History Medical History Date Comments Alcohol abuse DM (diabetes mellitus) ([facility] V24, [facility] V28 ) Asthma Social History Tobacco Use Types Packs/Day Years [...] Livin g Live Births 3 2 2 Date Outcome GA Total Labor Labor/2nd/3rd Weight Sex Type Anes PTL Nadine A1 A5 Name Clin 2014 Term F Vag-Sp ont 2015 Term 38w0 d M Vag-Sp ont Last Filed Vital Signs Vital Sign Reading [...] Mass Index 24.55 06/20/2025 2:00 AM EDT Plan of Treatment Health Maintenance Due [...] Smear 2016 Cholesterol Screening (Lipid Panel) 11/04/2022 HIV Screening 11/04/2022 Hepatitis C Screening 11/04/2022 Social Influencers of Health Screening 11/04/2022 Depression Screening 12/01/2024 COVID-19 Vaccine (1 - 2023-2 5 season) 2025 Influenza Vaccine (#1) 2025 12/01/2021 DTaP,Tdap,and Td Vaccines (2 - Td or Tdap) 01/31/2030 02/01/2020 HIB Vaccines Aged Out No longer eligi ble based on patient's age to complete this topic HPV Vaccines Aged Out No longer eligi ble based on patient's age to complete this topic IPV Vaccines Aged Out No longer eligi ble based on patient's age to complete this topic MMR Vaccines Aged Out No longer eligi ble [...] on patient's age to complete this topic Varicella Vaccines Aged Out No longer eligible based [...] AND DIFFERENTIAL STAT 06/20/2025 3:00 AM EDT COMPREHENSIVE METABOLIC PANEL STAT 06/20/2025 3:00 AM EDT LIPASE STAT 06/20/2025 3:00 AM EDT MAGNESIUM STAT 06/20/2025 3:00 AM EDT ETHANOL STAT 06/20/2025 3:00 AM EDT POCT GLUCOSE BLOOD Routine 06/20/2025 2: 58 AM EDT CBC WITH AUTO DIFFERENTIAL STAT 06/16/2025 8:51 AM EDT CBC AND DIFFERENTIAL STAT 06/16/2025 8:51 AM EDT LIPASE STAT 06/16/2025 8:51 AM EDT COMPREHENSIVE METABOLIC PANEL STAT 06/16/2025 8:51 AM EDT [place] URINE CULTURE TUBE STAT 06/16/2025 8:22 AM EDT URINALYSIS WITH REFLEX MICROSCOPIC AND CULTURE STAT 06/16/2025 8:22 AM EDT URINALYSIS WITH REFLEX MICROSCOPIC AND CULTURE STAT 06/16/2025 8:22 AM EDT CULTURE URINE STAT 06/16/2025 8:22 AM EDT POCT GLUCOSE BLOOD Routine 06/16/2025 7: 47 AM EDT HCG, QUANTITATIVE Routine 06/02/2025 2:4 8 PM EDT examination or test, positive result HCG, QUANTITATIVE STAT 05/24/2025 10: 33 AM EDT examination or test, positive result HCG, QUANTITATIVE Routine 05/18/2025 10: 56 AM EDT examination or test, positive result from Last 3 Months Results * ECG-Annotated (06/22/2025) Provider Onbase MD ECG ORDERABLES Final Result * (ABNORMAL) Potassium (06/20/2025 8:52 AM EDT) Pathologist [facility] Potassium 3.4(L) 3.5 - 5.5 mmol/L LAB CHEMISTRY METHOD 06/20/2025 9:40 AM EDT [facility] Blood Venous blood specimen / Unknown Venipuncture / Unknown 06/20/2025 8:52 AM EDT 06/20/2025 9:16 AM EDT Kasey Wilks MD LAB BLOOD ORDERABLES Final Res ult Performing Organization Address City/[facility]/ZIP Co de Phone Number [facility] [address] [place] [address], [place] [phone] * (ABNORMAL) POCT Glucose, blood (06/20/2025 4:27 AM EDT) Only the most recent of3 resultswithin the time period is included. [facility] Signature Glucose POCT 256(H) 70 - 100 mg/dL 06/20/2025 4:28 AM EDT [facility] Blood Capillary blood specimen / Unknown 06/20/2025 4:27 AM EDT 06/20/2025 4:29 AM EDT Kasey Wilks MD LAB POINT OF CARE TE ST DOCKED DEVICE UNSOLICITED RESULTS Final Result Performing Organization Address [facility]/ZIP Co de Phone Number [facility] [address] [place] [address], [place] [phone] * Drug abuse screen 8a panel, urine (06/20/2025 4:23 AM EDT) [facility] Amphetamine Screen, Ur Negative Negative LAB CHEMISTRY METHOD 06/20/2025 5:12 AM [facility] Comment:Certain OTC medicati ons containing ephedrine, phenylephrine, pseudoephedrine and phenylpropanolamine can cause false positive results. Barbiturate Screen, Ur Negative Negative LAB CHEMISTRY METHOD 06/20/2025 5:12 AM [facility] Benzodiazepine Screen, Ur Negative Negative LAB CHEMISTRY METHOD 06/20/2025 5:12 AM [facility] Cocaine Screen, Ur Negative Negative LAB CHEMISTRY METHOD 06/20/2025 5:12 AM [facility] Opiate Screen, Ur Negative Negative LAB CHEMISTRY METHOD 06/20/2025 5:12 AM [facility] Cannabinoid (THC) Screen, Ur Negative Negative LAB CHEMISTRY METHOD 06/20/2025 5:12 AM [facility] Comment:Specimens from patie nts taking pantoprazole sodium (Protonix) have been shown to produce false positive results. Oxycodone Screen, Ur Negative Negative LAB CHEMISTRY METHOD 06/20/2025 5:12 AM [facility] Fentanyl, Ur Negative Negative LAB CHEMISTRY METHOD 06/20/2025 5:12 AM [facility] Urine Urine specimen obtained by clean catch procedure / Unknown Non-blood Collection / Unknown 06/20/2025 4:23 AM EDT 06/20/2025 4:28 AM EDT [facility] - 06/20/2025 5:12 AM EDT Assay cutoffs: Amphetamines 1000 ng/mL Barbiturates 200 ng/mL Benzodiazepines 200 ng/mL Cocaine 300 ng/mL Fentanyl 1 ng/mL Opiates 300 ng/mL Oxycodone 100 ng/mL THC 50 ng/mL Semi-quantitative assay for screening purposes only. Unconfirmed screening result should not be used for non-medical purposes. *ALTERNATE METHOD CONFIRMATION DONE UPON REQUEST ONLY* Kasey Wliks MD LAB URINE ORDERABLES Final Res ult Performing Organization Address [facility] Co de Phone Number [facility] [address] [place] [address], [place] [phone] * ECG 12 lead (06/20/2025 3:02 AM EDT) Ventricular Rate ECG 87 BPM GEMUSE Atrial Rate 87 BPM GEMUSE P-R Interval 138 ms GEMUSE QRS Duration 84 ms GEMUSE Q-T Interval 402 ms GEMUSE QTc 483 ms GEMUSE P Wave Vass 59 degrees GEMUSE R Vass 42 degrees GEMUSE T Vass 19 degrees GEMUSE ECG Interpretation Normal sinus rhythm Nonspecific T wave abnormality Abnormal ECG When compared with ECG of 02-JUL-2023 07:10, ST no longer elevated in Anterior leads T wave inversion now evident in Inferior leads T wave inversion now evident in Anterior leads Confirmed by WILLIAM MIGUEL ([id number]) on 06/21/2025 4:34:50 PM GEMUSE 06/20/2025 3:02 AM EDT 06/21/2025 4:34 PM EDT Kasey Wilks MD ECG ORDERABLES Final Result Performing Organization Address [facility] de Phone Number GEMUSE * (ABNORMAL) Manual differential (06/20/2025 3:00 AM EDT) Neutrophils % 39.0 % LAB HEMETOLOGY METHOD 06/20/2025 3:58 AM EDT [facility] Lymphocytes % 49.0 % LAB HEMETOLOGY METHOD 06/20/2025 3:58 AM EDT [facility] Reactive Lymphocyte 7.00 % LAB HEMETOLOGY METHOD 06/20/2025 3:58 AM EDT [facility] Monocytes % 3.0 % LAB HEMETOLOGY METHOD 06/20/2025 3:58 AM EDT [facility] Eosinophils % 2.0 % LAB HEMETOLOGY METHOD 06/20/2025 3:58 AM [facility] Basophils % 1.0 % LAB HEMETOLOGY METHOD 06/20/2025 3:58 AM [facility] Neutrophils Absolute Manual 4.52 1.50 - 7.00 K/mcL LAB HEMETOLOGY METHOD 06/20/2025 3:58 AM [facility] Lymphocytes Absolute 5.68(H) 1.00 - 5.00 K/mcL LAB HEMETOLOGY METHOD 06/20/2025 3:58 AM [facility] Reactive Lymph Abs Manual 0.81(H) 0.00 - 0.00 lym LAB HEMETOLOGY METHOD 06/20/2025 3:58 AM [facility] Monocytes Absolute Manual 0.35 0.20 - 1.00 K/mcL LAB HEMETOLOGY METHOD 06/20/2025 3:58 AM [facility] Eosinophils Absolute Manual 0.23 0.00 - 0.50 K/mcL LAB HEMETOLOGY METHOD 06/20/2025 3:58 AM [facility] Basophils Absolute Manual 0.12 0.00 - 0.20 K/mcL LAB HEMETOLOGY METHOD 06/20/2025 3:58 AM [facility] Rbc Morphology Consistent with indices Consistent with indices, Normal for LAB HEMETOLOGY METHOD 06/20/2025 3:58 AM [facility] Comment:RBC: Morphology agre es with CBC Platelet Morphology - WAM See Note(A) Normal LAB HEMETOLOGY METHOD 06/20/2025 3:58 AM [facility] Comment:PLT: Large platelets seen Blood Venous blood specimen / Unknown Venipuncture / Unknown 06/20/2025 3:00 AM EDT 06/20/2025 3:03 AM EDT us Kasey Kokkinos MD LAB BLOOD ORDERABLES Final Res ult [facility] [address] [place] [address], * (ABNORMAL) CBC auto differential (06/20/2025 3:00 AM EDT) Only the most recent of2 resultswithin the time period is included. WBC 11.6(H) 4.8 - 10.8 K/mcL LAB HEMETOLOGY METHOD 06/20/2025 3:58 AM EDT [facility] RBC 4.70 3.80 - 4.80 M/mcL LAB HEMETOLOGY METHOD 06/20/2025 3:58 AM EDT [facility] Hemoglobin 14.2 11.5 - 16.0 g/dL LAB HEMETOLOGY METHOD 06/20/2025 3:58 AM EDT [facility] Hematocrit 40.7 35.0 - 47.0 % LAB HEMETOLOGY METHOD 06/20/2025 3:58 AM EDT [facility] MCV 85.9 79.0 - 98.0 FL LAB HEMETOLOGY METHOD 06/20/2025 3:58 AM EDT [facility] MCH 30.0 27.0 - 32.0 pcg LAB HEMETOLOGY METHOD 06/20/2025 3:58 AM EDT [facility] MCHC 34.9 32.0 - 37.0 g/dL LAB HEMETOLOGY METHOD 06/20/2025 3:58 AM EDT [facility] RDW 12.2 11.0 - 15.0 % LAB HEMETOLOGY METHOD 06/20/2025 3:58 AM EDT [facility] Platelets 401(H) 130 - 400 K/mcL LAB HEMETOLOGY METHOD 06/20/2025 3:58 AM EDT [facility] MPV 9.2 7.0 - 11.0 FL LAB HEMETOLOGY METHOD 06/20/2025 3:58 AM EDT [facility] NRBC 0.0 <1.0 % LAB HEMETOLOGY METHOD 06/20/2025 3:58 AM EDT [facility] NRBC Absolute 0.00 <0.10 K/mcL LAB HEMETOLOGY METHOD 06/20/2025 3:58 AM EDT [facility] Blood Venous blood specimen / Unknown Venipuncture / Unknown 06/20/2025 3:00 AM EDT 06/20/2025 3:03 AM EDT us Kasey Wilks MD LAB BLOOD ORDERABLES Final Res ult Performing Organization Address [facility]/ZIP Co de Phone Number [facility] [address] [place] [address], * (ABNORMAL) Magnesium (06/20/2025 3:00 AM EDT) Magnesium 1.8(L) 1.9 - 2.6 mg/dL LAB CHEMISTRY METHOD 06/20/2025 3:30 AM EDT [facility] Blood Venous blood specimen / Unknown Venipuncture / Unknown 06/20/2025 3:00 AM EDT 06/20/2025 3:03 AM EDT Kasey Wilks MD LAB BLOOD ORDERABLES Final Res ult Performing Organization Address City/[facility]/ZIP Co de Phone Number [facility] [address] [place] [address], [place] [phone] * (ABNORMAL) Lipase (06/20/2025 3:00 AM EDT) Only the most recent of2 resultswithin the time period is included. Lipase 10(L) 13 - 75 unit/L LAB CHEMISTRY METHOD 06/20/2025 3:30 AM EDT [facility] Blood Venous blood specimen / Unknown Venipuncture / Unknown 06/20/2025 3:00 AM EDT 06/20/2025 3:03 AM EDT Kasey Wilks MD LAB BLOOD ORDERABLES Final Res ult Performing Organization Address [facility]/ZIP Co de Phone Number [facility] [address] [place] [address], [place] [phone] * (ABNORMAL) Ethanol (06/20/2025 3:00 AM EDT) Ethanol Level 307(H) 0 - 10 mg/dL LAB CHEMISTRY METHOD 06/20/2025 4:00 AM EDT [facility] Blood Venous blood specimen / Unknown Venipuncture / Unknown 06/20/2025 3:00 AM EDT 06/20/2025 3:03 AM EDT Kasey Wilks MD LAB BLOOD ORDERABLES Final Res ult Performing Organization Address City/[facility]/ZIP Co de Phone Number [facility] [address] [place] [address], [place] [phone] * (ABNORMAL) Comprehensive metabolic panel (06/20/2025 3:00 AM EDT) Only the most recent of2 resultswithin the time period is included. Sodium 140 133 - 145 mmol/L LAB CHEMISTRY METHOD 06/20/2025 4:21 AM EDT [facility] Potassium 2.7(LL) 3.5 - 5.5 mmol/L LAB CHEMISTRY METHOD 06/20/2025 4:21 AM EDT [facility] Chloride 99 96 - 110 mmol/L LAB CHEMISTRY METHOD 06/20/2025 4:21 AM EDT [facility] CO2 26 21 - 32 mmol/L LAB CHEMISTRY METHOD 06/20/2025 4:21 AM EDT [facility] Anion Gap 15(H) 3 - [...] MD LAB BLOOD ORDERABLES Final Res ult [facility] [address] [place] [address], * (ABNORMAL) Urinalysis with reflex microscopic and culture (06/16/2025 8:22 AM EDT) Specific [place] Urine 1.043(H) 1.003 - 1.030 LAB URINALYSIS - AUTOMATED METHOD 06/16/2025 8:52 AM [facility] pH, Urine 6.0 5.0 - 8.0 pH LAB URINALYSIS - AUTOMATED METHOD 06/16/2025 8:52 AM [facility] Leukocytes, Urine Negative Negative LAB URINALYSIS - AUTOMATED METHOD 06/16/2025 8:52 AM [facility] Nitrite, Urine Negative Negative LAB URINALYSIS - AUTOMATED METHOD 06/16/2025 8:52 AM [facility] Protein, Urine 30(A) <=Trace mg/dL LAB URINALYSIS - AUTOMATED METHOD 06/16/2025 8:52 AM [facility] Glucose, Urine >=1000(A) Negative mg/dL LAB URINALYSIS - AUTOMATED METHOD 06/16/2025 8:52 AM [facility] Ketones, Urine Trace(A) Negative mg/dL LAB URINALYSIS - AUTOMATED METHOD 06/16/2025 8:52 AM [facility] Urobilinogen , Urine 1.0 0.2 - 1.0 mg/dL LAB URINALYSIS - AUTOMATED METHOD 06/16/2025 8:52 AM EDT [facility] Bilirubin, Urine Negative Negative LAB URINALYSIS - AUTOMATED METHOD 06/16/2025 8:52 AM EDT [facility] Blood, Urine Negative Negative LAB URINALYSIS - AUTOMATED METHOD 06/16/2025 8:52 AM [facility] RBC, Urine 1.8 0 - 4 /HPF LAB URINALYSIS - AUTOMATED METHOD 06/16/[facility]25 8:[facility] WBC, Urine 10.0(H) 0 - 4 /HPF LAB URINALYSIS - AUTOMATED METHOD 06/16/2025 8:52 AM [facility] Squamous Epithelial, Urine >100(H) 0 - 60 /LPF LAB URINALYSIS - AUTOMATED METHOD 06/16/2025 8:52 AM [facility] Bacteria, Urine Negative Negative /HPF LAB URINALYSIS - AUTOMATED METHOD 06/16/2025 8:52 AM [facility] Hyaline Casts, Urine 12.0(H) 0 - 3 /LPF LAB URINALYSIS - AUTOMATED METHOD 06/16/2025 8:52 AM [facility] Urine Urine specimen obtained by clean catch procedure / Unknown Non-blood Collection / Unknown 06/16/2025 8:22 AM EDT 06/16/2025 8:40 AM EDT Gagan IRBY LAB URINE ORDERABLES Angela l Result [facility] [address] [place] [address], * [place] urine culture tube (06/16/2025 8:22 AM EDT) Extra Tube Hold for add-ons. 06/16/2025 10:01 AM EDT [facility] Comment:Auto resulted. Urine Urine specimen obtained by clean catch procedure / Unknown Non-blood Collection / Unknown 06/16/2025 8:22 AM EDT 06/16/2025 8:40 AM EDT [facility] URINE ORDERABLES Angela l Result Performing Organization Address [facility]/ZIP Co de Phone Number [facility] [address] [place] [address], [place] [phone] * Culture urine (06/16/2025 8:22 AM EDT) Pathologist [facility] Culture, Urine <10,000 cfu/ml, insignificant count, no further workup. 06/17/2025 9:50 AM EDT [facility] Urine Urine specimen obtained by clean catch procedure / Unknown Non-blood Collection / Unknown 06/16/2025 8:22 AM EDT 06/16/2025 8:52 AM EDT [facility] MICROBIOLOGY - GENERA L ORDERABLES Final Result Performing Organization Address [facility] de Phone Number [facility] [address] [place] [address], [place] [phone] * HCG, quantitative (06/02/2025 2:48 PM EDT) Only the most recent of3 resultswithin the time period is included. hCG Quant 2 mIU/mL LAB CHEMISTRY METHOD 06/02/2025 7:36 PM EDT [facility] Blood Venous blood specimen / Unknown Venipuncture / Unknown 06/02/2025 2:48 PM EDT 06/02/2025 2:48 PM EDT Narrative [facility] - 06/02/2025 7:36 PM EDT Quantitative HCG Reference Ranges Time after Conception MIU/ML 0.2-1 Week 5-50 1-2 Weeks 50-500 2-3 Weeks 100-5,000 3-4 Weeks 500-10,000 4-5 Weeks 1,000-50,000 5-6 Weeks 10,000-100,000 6-8 Weeks 15,000-200,000 2-3 Months 10,000-100,000 2nd Trimester 1,000-94,000 3rd Trimester 2,500-90,000 Non- Females 1-3 us Deena OWENSM LAB BLOOD ORDERABLES Final Resu lt [facility] [address] [place] [address], [place] [phone] from Last 3 Months Insurance MEDICAID - [place] Advance Directives Documents on File Type Date Recorded 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 Health Care Decision (hx) 08/01/2022 AD MALIK DIRECTIVE Health Care Decision (hx) 08/01/2022 AD MALIK DIRECTIVE Health Care Decision (hx) 08/01/2022 AD MALIK DIRECTIVE Health Care Decision (hx) 08/01/2022 AD MALIK DIRECTIVE Health Care Decision (hx) 08/01/2022 AD MALIK DIRECTIVE Health Care Decision (hx) 08/01/2022 AD MALIK DIRECTIVE Health Care Decision (hx) 08/01/2022 AD MALKI DIRECTIVE Health Care Decision (hx) 08/01/2022 AD [...] (hx) 08/01/2022 AD MALIK DIRECTIVE Care Teams Control Valve Technician Relationship Specialty Start Date End Date Michael Mitchell NP [address] [place] [id number] PCP - General Family Medicine 07/26/25
--- NOTE | 2025-08-13 14:28 | PC.NURSE ---
attempted x2 to insert IV, patient pulling arms back and tearful unable to attempt IV at this time.
--- NOTE | 2025-08-13 14:29 | PC.NURSE ---
Patient vomited in ED. Patient cleaned up. Patient refused IV placement and bloodwork to be completed. Attempted to redirect patient refused. Reapproach with different RN patient still refused Patient provided with vomit bag Bed locked and rails up
[2025-08-13 15:05] LABS: MANUAL DIFF FLAG NO
[2025-08-13 15:08] LABS: Hematocrit 39.5 % (37.0-47.0); Hemoglobin 14.1 g/dl (12.0-16.0); Imm Gran Abs Auto 0.04 X10*3/uL (0.00-0.03); Imm Gran Pct Auto 0.3 % (0.0-0.4); Lymphocytes Absolute Auto 3.2 X10*3/uL (1.2-4.9); Mean Corpuscular HGB Conc 35.7 g/dl (31.0-35.0); Mean Corpuscular Hemoglobin 30.8 pg (27.0-33.0); Mean Corpuscular Volume 86.2 fL (80.0-98.0); NRBC Abs Auto 0.000 X10*3/uL (0.0-0.012); NRBC Pct Auto 0.0 /100WBC (0.0-0.2); Platelet Count 336 X10*3/uL (160-400); Red Blood Count 4.58 X10*6/uL (4.20-5.50); White Blood Count 12.3 X10*3/uL (4.8-10.8)
[2025-08-13 15:48] LABS: Alanine Aminotransferase 28 U/L (0-31); Albumin Level 4.9 g/dL (3.5-5.0); Alkaline Phosphatase 106 U/L (39-117); Anion Gap 22 (12-20); Aspartate Amino Transferase 55 U/L (5-31); Blood Urea Nitrogen 6 mg/dL (9-16); Calcium 9.3 mg/dL (8.4-10.2); Carbon Dioxide 19 mmol/L (22-29); Chloride 105 mmol/L (96-108); Creatinine Clr Calc Pharmacy 143.7; Estimated Glomerular Filt Rate > 60; Magnesium 2.2 mg/dL (1.6-2.6); Potassium 3.7 mmol/L (3.3-5.1); Sodium 142 mmol/L (135-145); Total Protein 8.3 g/dL (6.5-8.0)
[2025-08-13 15:55] LABS: Appearance Urine Clear; Glucose Urine UA 250 mg/dL (Negative); PH 5.5 (5.0-9.0); Specific Gravity - Urine 1.020 (1.005-1.025); UMIC TRIGGER UACC YES
--- NOTE | 2025-08-13 15:55 | PC.NURSE ---
PAtient still refusing IV placement Patient swearing at other patients in hallway Patient attempted to leave ED, security was called and patient was escorted [facility]
[2025-08-13 16:04] LABS: UACC Culture Trigger YES
[2025-08-13 16:05] LABS: Cannabinoid Screen Urine Not Detected (Not Detect)
--- NOTE | 2025-08-13 16:10 | PC.NURSE ---
Assumed care, Pt brought to POD to [facility] for making +SI statements. SHe is loud, intrusive, odorous, asking to go home, calling her father multiple times, asking the same questions over and over and she removes her ID bracelet She is provided food and drink and oriented to the unit. she continues to state she wants to today. she does not have a plan, she denies HI/AVH.
--- NOTE | 2025-08-13 16:24 | ECG_ITS ---
Test Reason : INTOXICATION Blood Pressure : */* mmHG Vent. Rate : 85 BPM Atrial Rate : 85 BPM P-R Int : 134 ms QRS Dur : 88 ms QT Int : 394 ms P-R-T Axes : 27 53 41 degrees QTcB Int : 468 ms Normal sinus rhythm Normal ECG When compared with ECG of 11-Jun-2025 09:56, No significant change was found Referred By: Marga Henson Electronically Signed By: LUTHER SRIVASTAVA MD
[2025-08-13 16:48] VITALS: BP 123/86; PULSE 107; RESP 16; O2SAT 94
[2025-08-13] MEDS: Thiamine HCL 200 MG in 0.9 % Sodium Chloride 100 ML 204 MG IV (16:56)
[2025-08-13] MEDS: Lactated Ringers 1,000 ML 999 ML IV ×2 (17:02)
[2025-08-13 17:28] LABS: Lipase 6 U/L (8-78)
--- NOTE | 2025-08-13 17:45 | PC.NURSE ---
Provider at bedside, pt agitated, requesting something for pain, pt offered vaious types of pain med and methods, pt refusing all. Pt removed iv, per provider will not reattempt access at this time. Pt took po ativan at this time.
[2025-08-13] MEDS: oxyCODONE HCl Immed Release 5 MG TABLET PO (18:26)
[2025-08-13 19:06] VITALS: BP 138/89; PULSE 99; RESP 16; TEMP 36.8; O2SAT 99
[2025-08-13] MEDS: OLANZapine 10 MG VIAL 5 MG IM (19:09)
--- NOTE | 2025-08-13 19:22 | PC.NURSE ---
Patient accepted oxycodone from this RN. Patient then attempted to leave ED Security notified, escorted patient back to her room Notified provider of patients non compliance Patient IMd with alfredo collazo, and linda per MAR by assisting nurses Patient calm at this time
[2025-08-13] MEDS: iohexoL 350 MG/ML 100 ML INFUS..BTL 85 ML IV (20:33)
--- NOTE | 2025-08-13 23:13 | PC.NURSE ---
Report received and care assumed at 2300. Pt noted to be laying in the stretcher with eyes closed, respirations even and unlabored with bedside sitter present for continued observation. The pt is noted to be sinus tach on the monitor and normotensive.
[2025-08-13 23:56] VITALS: BP 111/65; PULSE 95; RESP 16; O2SAT 92
[2025-08-14] VITALS (7 sets, daily range): BP systolic 110–132; BP diastolic 71–88; PULSE 60–97; RESP 13–20; TEMP 36.4–37.4; O2SAT 96–100
--- NOTE | 2025-08-14 01:54 | MHC.EDTECH ---
Pt refusing blood work
[2025-08-14] MEDS: diazePAM 10 MG/2 ML CARTRIDGE 5 MG IVPUSH ×2 (02:04→04:30)
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
--- NOTE | 2025-08-14 02:38 | PC.NURSE ---
Late Entry for 0145: Pt now awake, calm, cooperative and without distress noted. She reports not feeling well, admitting to a headache, feeling shaky and feeling sick. RN approached MD and plan to repeat chemistry to ensure her gap closed before relocating her to the pod. When the pt was approached to have blood work done she initially declined/refused. MD made aware and both parties to bedside to speak with the patient. She is reporting feeling unwell, states she has a hx of withdrawal and seizures, requesting medication through her IV to help with current symptoms as she reports valium works for her. Pt provided with option for admissions s/t etoh withdrawal which she agreed to under the pretence that she wants to be here so she can get clean . Pt currently denies the presence of SI/HI, A/V Hallucinations.
--- NOTE | 2025-08-14 02:38 | PC.NURSE ---
Pt currently pacing back and forth in the department with patient observer along side of her. The pt continues to report that she feels unwell reporting that she feels shaky but refuses to provide additional information on her own. However when prompted the pt acknowledges the presence of nausea, headache, body aches, increased anxiety. She is requiring for staff to continue to repeat ourselves regarding the plan for pheno protocol to which she responds No man, they gave me ativan and stuff last time through my IV . Pt once again made aware of the hospital's protocol for ETOH withdrawal but does not seem to understand and/or comprehend this. The pt stated that phenobarbitol does not work and that we don't know what we are doing adding I don't understand you guys for real . The pt has been pacing the department for the last 20 minutes, getting upset that the patient observer is standing along side her for safety and per policy which she has been made aware of numerous times. RN believes the IV to the pt's right upper arm to no longer be effective or able to be used as the pt reports discomfort upon flushing and there is redness noted, there is no infiltration or bubbling noted at the site. DIANELYS to place a new IV for IV access as the pt reports and has previously been confirmed to be a difficult stick.
--- NOTE | 2025-08-14 02:49 | PC.NURSE ---
Hospitalist outreached regarding the pt's increased aggitation and request for additional medication and constant/continued reports of not feeling well.
[2025-08-14] MEDS: diazePAM 10 MG/2 ML CARTRIDGE 5 MG IM (03:04)
[2025-08-14 03:13] LABS: Hematocrit 40.4 % (37.0-47.0); Hemoglobin 14.4 g/dl (12.0-16.0); Imm Gran Abs Auto 0.02 X10*3/uL (0.00-0.03); Imm Gran Pct Auto 0.2 % (0.0-0.4); MANUAL DIFF FLAG SCAN; Mean Corpuscular HGB Conc 35.6 g/dl (31.0-35.0); Mean Corpuscular Hemoglobin 30.8 pg (27.0-33.0); Mean Corpuscular Volume 86.3 fL (80.0-98.0); NRBC Abs Auto 0.000 X10*3/uL (0.0-0.012); NRBC Pct Auto 0.0 /100WBC (0.0-0.2); Platelet Count 374 X10*3/uL (160-400); Red Blood Count 4.68 X10*6/uL (4.20-5.50); SCAN SMEAR FLAG 1; White Blood Count 12.3 X10*3/uL (4.8-10.8)
[2025-08-14 03:22] LABS: Anion Gap 19 (12-20); Blood Urea Nitrogen 10 mg/dL (9-16); Calcium 9.5 mg/dL (8.4-10.2); Carbon Dioxide 22 mmol/L (22-29); Chloride 104 mmol/L (96-108); Creatinine Clr Calc Pharmacy 131.7; Estimated Glomerular Filt Rate > 60; Potassium 3.7 mmol/L (3.3-5.1); Sodium 141 mmol/L (135-145)
[2025-08-14 03:24] LABS: Alanine Aminotransferase 31 U/L (0-31); Albumin Level 4.9 g/dL (3.5-5.0); Alkaline Phosphatase 104 U/L (39-117); Anion Gap 19 (12-20); Aspartate Amino Transferase 49 U/L (5-31); Blood Urea Nitrogen 10 mg/dL (9-16); Calcium 9.6 mg/dL (8.4-10.2); Carbon Dioxide 22 mmol/L (22-29); Chloride 104 mmol/L (96-108); Creatinine Clr Calc Pharmacy 131.7; Estimated Glomerular Filt Rate > 60; Potassium 3.8 mmol/L (3.3-5.1); Sodium 141 mmol/L (135-145); Total Protein 8.2 g/dL (6.5-8.0)
[2025-08-14 03:26] LABS: Lymphocytes Absolute Auto 6.6 X10*3/uL (1.2-4.9)
--- NOTE | 2025-08-14 03:28 | PC.NURSE ---
Unsuccessful attempt by DIANELYS for US IV, during the second attempt the patient called the DIANELYS a Bitch in frisian and then proceeded to say what are you retarded or something? . At that point the DIANELYS removed themselves from the room, the pt continued to speak negatively on the DIANELYS and now is requesting dilaudid through the IV to assist with abdominal pain as she reports history of pancreatitis. Hospitalist made aware
[2025-08-14] MEDS: Dextrose 5 % and 0.45 % NaCl 1,000 ML 100 ML IVCONT (03:54)
--- NOTE | 2025-08-14 04:02 | PC.NURSE ---
Pt medicated per MAR for generalized body and abdominal pain with 0.5mg of dilaudid. The pt is now requesting to speak with the hospitalist as she is requesting a higher dose of dilaudid as she continues to report pancreatitis pain . The pt is calm and cooperative without distress noted and/or any outward s/s of discomfort or tremors when she is left unattended by RNs and MDs at the bedside, once they arrive at the bedside the pt is noted to begin with tremors, chattering teeth, moaning, reporting that she is feeling unwell. Hospitalist made aware of the pt's request to speak with him
--- NOTE | 2025-08-14 04:16 | PC.NURSE ---
Hospitalist to bedside, section 12 now on the chart as there was not a section found within the chart prior to. New orders obtained regarding pain and withdrawal symtpom management and plans for pheno administration. patient observer remains present for continued obs
[2025-08-14] MEDS: PHENobarbitaL sodium 130 MG/ML IM ONCE 212 MG IM (04:23)
--- NOTE | 2025-08-14 04:50 | PC.NURSE ---
Pt previously ripped off cardiac leads and is refusing to allow staff to replace them on her at this time. RN aware of tele monitoring order and plan for [place] admisstion however RN will attempt to readdress this topin in a few.
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
[2025-08-14 07:37] LABS: Glucose, Whole Blood 277 mg/dL (60-115)
--- NOTE | 2025-08-14 08:08 | PM.GICN ---
History of Present Illness Data of Consult Service Date: 08/14/25 Primary Care Provider: Unknown Physician HPI Reason for consult: abdo pain 29-year-old female with a past medical history of alcohol use disorder, PTSD, bipolar who I amd seeing for assessment for abdominal pain Patient has hx of alcohol abuse and been drinking more vodak than normal for last few weeks. For 2 weeks now noted a tight upper abdominal sharpish sarah worse with food. She also has pain on her arm and leg after a fall - mechanical wthout LOC. She denies fevers and chills, urine sx, bowel sx, melena, rectal bleeding, diarrhea, constipation, or gerd. SHe say she is depressed and needs help fot this and told ED she feels suicidal. She looks relaxed but says she needs more diluadid. Imaging without any fractures, and atrophic appearing pancreas, no acute findings. Lipase was normal Review of Systems Review of Systems: Constitutional : No Weight loss, No Fever, No Chills ENT/Mouth : No sore throat, No Rhinorrhea Eyes: No Swelling, No Redness Cardiovascular : No Chest Pain, No SOB, No Edema Respiratory : No Cough, No Sputum, No Wheezing Gastrointestinal : see HPI Genitourinary : NO Dysuria, No Urinary Frequency, No Hematuria, No Urgency Musculoskeletal : + joint pain, No Myalgias, No Joint Swelling Skin : No Skin Lesions, No rash Neuro : No Weakness, No Numbness, No Dizziness, No Headache Psych : No Anxiety/Panic, + Depression Heme/Lymph: No Bruising, No Lymphadenopathy Endocrine : No Polyuria, No Polydipsia All other systems reviewed and are negative. [facility] Past Medical History Medical History PTSD (post-traumatic stress disorder) Polysubstance use disorder Alcohol use disorder Bipolar disorder Social History Social History Household Members: Family Household Members Other:: 3 Housing: House Do you presently have visiting nurse or other home services: No Alcohol intake: current Alcohol intake frequency: other Alcohol type: hard liquor Comment: 1:1 IN EFFECT Patient Tobacco Use Status: Current everyday Tobacco user Tobacco use type: Cigarette Cigarettes Per Day: 7 e-Cigarette/Vaping Use: Currently Using Second Hand Smoke Exposure: Yes Use of substances other than those prescribed or required for medical reasons: Refusing to respond Substance Use Type: Opiates and Other Advance Directives: No Advance Directives Information Provided: No Do you have a plan to hurt others: No Plan Nutrition Risks: No Nutritional Risk service: No Sexual orientation: Unable to collect Meds Allergies Allergy/AdvReac Type Severity Reaction Status Date / Time SEAFOOD Allergy Unknown UNK Uncoded 08/13/25 14:15 Active Medications: Current Medications Acetaminophen (Acetaminophen 325 Mg Tablet) 650 mg PO Q6H PRN PRN Reason: Pain, Mild 1-3,fever,headache Calcium Carbonate (Calcium Carbonate 750 Mg Tab.Chew) 750 mg PO Q4H PRN PRN Reason: Heartburn Ceftriaxone Sodium (Ceftriaxone Sodium 1 Gm Vial) 1 gm IVPUSH Q24H KATHY Dextrose (Dextrose 50 % 25 Gm/50 Ml Syringe) 25 gm IVPUSH Q15M PRN; Protocol PRN Reason: per Hypoglycemia Standing Ord. Enoxaparin Sodium (Enoxaparin Sodium 40 Mg/0.4 Ml Syringe) 40 mg SUBCUT Q24H [facility] Folic Acid (Folic Acid 1 Mg Tablet) 1 mg PO DAILY [facility] Stop: 08/17/25 08:59 Glucose (Glucose Gel 15 Gm Gel..Gram.) 15 gm PO Q15M PRN; Protocol PRN Reason: per Hypoglycemia Standing Ord. Hydromorphone HCl (Hydromorphone Hcl 0.5 Mg/0.5 Ml Syringe) 0.5 mg IVPUSH Q4H PRN; Protocol PRN Reason: Breakthrough Pain Last Admin: 08/14/25 03:54 Dose: 0.5 mg Dextrose/Sodium Chloride (D51/2ns) 1,000 mls @ 100 mls/hr IVCONT .Q10H KATHY Last Admin: 08/14/25 03:54 Dose: 100 mls/hr Insulin Human Lispro (Insulin Lispro 100 Unit/Ml 3 Ml Vial) 0 unit SUBCUT QIDACHS [facility]; Protocol Magnesium Hydroxide (Milk Of Magnesia 30 Ml Oral.Susp) 30 ml PO DAILY PRN PRN Reason: Constipation Melatonin (Melatonin 3 Mg Tablet) 6 mg PO BEDTIME PRN PRN Reason: Insomnia Multivitamins/Vitamin C (Multivitamin Tablet) 1 tab PO DAILY [facility] Stop: 08/17/25 08:59 Nitrofurantoin Macrocrystals (Nitrofurantoin Monohyd/M-Cryst 100 Mg Capsule) 100 mg PO BID [facility] Stop: 08/21/25 08:59 Pantoprazole Sodium (Pantoprazole Sodium 40 Mg/10 Ml Vial) 40 mg IVPUSH DAILY@0630 [facility] Last Admin: 08/14/25 06:53 Dose: 40 mg Pharmacy Consult (Consult Rx Etoh Phenob Im/Po) 1 each MISCELLANE ONCE PRN; Protocol PRN Reason: Consult order Phenobarbital (Phenobarbital 30 Mg Tablet) 60 mg PO Q4H PRN PRN Reason: Breakthrough alcohol withdraw Phenobarbital (Phenobarbital 15 Mg Tablet) 45 mg PO BID [facility]; Protocol Stop: 08/16/25 09:01 Phenobarbital (Phenobarbital 15 Mg Tablet) 15 mg PO BID [facility]; Protocol Stop: 08/18/25 09:01 Phenobarbital (Phenobarbital 15 Mg Tablet) 15 mg PO DAILY [facility]; Protocol Stop: 08/20/25 09:01 Phenobarbital Sodium (Phenobarbital Sodium 130 Mg/Ml Vial Im Q3hx2) 159 mg IM Q3H KATHY; Protocol Stop: 08/14/25 10:31 Sodium Chloride (0.9 % Sodium Chloride Flush 3 Ml Syringe) 3 ml IVFLUSH QSHIFT [facility] Thiamine HCl (Thiamine Hcl 100 Mg Tablet) 100 mg PO DAILY [facility] Stop: 08/17/25 08:59 Home Medications ?Medication ?Instructions ?Recorded ?Confirmed ?Last Taken ?Type clonidine HCl 0.1 mg tablet 0.1 mg PO BID 08/14/25 08/14/25 08/12/25 History hydroxyzine pamoate 100 mg capsule 100 mg PO QID PRN anxiety 08/14/25 08/14/25 08/12/25 History meclizine 25 mg tablet 25 mg PO BID PRN nausea 08/14/25 08/14/25 08/12/25 History melatonin 5 mg tablet 20 mg PO BEDTIME 08/14/25 08/14/25 08/12/25 History metformin 750 mg tablet,extended 750 mg PO BID 08/14/25 08/14/25 08/12/25 History release 24 hr multivitamin-ferrous 1 tab PO DAILY 08/14/25 08/14/25 08/12/25 History fumarate-folic acid 18 mg-400 mcg tablet (Certavite-Antioxidant) risperidone 1 mg tablet 1 mg PO BID 08/14/25 08/14/25 08/12/25 History Physical Exam Exam: Exam: EXAM: GENERAL: The patient is well developed and nontoxic. VITAL SIGNS:see workflow HEENT: Nonicteric sclerae, PERRLA, EOMI. Oropharynx clear. Moist mucous membranes. Conjunctivae appear well perfused. No thyroid mass. CHEST: Chest wall is nontender. HEART: Regular rate and rhythm without murmurs. LUNGS: Clear to auscultation bilaterally. ABDOMEN: Soft, positive bowel sounds, tender to minimal touch but no guarding or rigidity, no organomegaly.no flank tenderness SKIN: No rash, no excessive bruising, petechiae, or purpura. NEUROLOGIC: Cranial nerves II-XII intact without motor/sensory deficit. Psych: abn affect, slahs olmedo on arms, old Vital Signs: Vital Signs: Last Vital Signs Temp 98.1 F 08/14/25 07:35 Pulse 70 08/14/25 07:35 Resp 17 08/14/25 07:35 BP 114/82 08/14/25 07:35 Pulse Ox 97 08/14/25 07:35 O2 Del Method Room Air 08/14/25 07:35 BMI result Body Mass Index 26.6 Results Labs 08/14/25 02:55 08/14/25 02:55 Labs: Short CBC 08/13/25 08/14/25 Range/Units 15:01 02:55 WBC 12.3 H 12.3 H (4.8-10.8) X10*3/uL Hgb 14.1 14.4 (12.0-16.0) g/dl Hct 39.5 40.4 (37.0-47.0) % Plt Count 336 D 374 (160-400) X10*3/uL BMP 08/13/25 08/14/25 08/14/25 15:01 02:55 02:55 Sodium 142 141 141 Potassium 3.7 3.7 Chloride 105 Carbon Dioxide 19 L BUN 6 L Creatinine 0.66 Calcium 9.3 08/14/25 08/14/25 08/14/25 02:55 02:55 02:55 Sodium Potassium 3.8 Chloride 104 104 Carbon Dioxide 22 22 BUN 10 Creatinine Calcium 08/14/25 08/14/25 08/14/25 02:55 02:55 02:55 Sodium Potassium Chloride Carbon Dioxide BUN 10 Creatinine 0.72 0.72 Calcium 9.5 9.6 Liver Function 08/13/25 08/14/25 Range/Units 15:01 02:55 Total Bilirubin 0.2 0.3 (0.0-1.0) mg/dL AST 55 H 49 H (5-31) U/L ALT 28 31 (0-31) U/L Alkaline Phosphatase 106 104 (39-117) U/L Albumin 4.9 4.9 (3.5-5.0) g/dL Urine 08/13/25 Range/Units 15:50 Urine Color Yellow Urine Appearance Clear Urine pH 5.5 (5.0-9.0) Ur Specific [place] 1.020 (1.005-1.025) Urine Protein 100 (2+) H (Neg-Trace) mg/dL Urine Glucose (UA) 250 H (Negative) mg/dL Assessment and Plan (1) Epigastric abdominal pain: Status: Acute Plan 1/ Epigastric pain, most likely alcoholic gastritis, less likely is acute on chronic pancreatitis, possibly some drug seeking behavior as well PLAN: 1/ allow PO diet as tolerated 2/ PPI e.g pantoprazole 40 mg daily with carafate 1 g BID not at same time as PPI 3/ if ongoing sx then can consder EGD Procedures Date of Service Date of Service: 08/14/25
[2025-08-14] MEDS: 0.9 % Sodium Chloride Flush 3 ML SYRINGE IVFLUSH ×3 (08:26→21:57)
[2025-08-14] MEDS: PHENobarbitaL sodium 130 MG/ML VIAL IM Q3Hx2 159 MG IM ×2 (08:27→11:02)
--- NOTE | 2025-08-14 09:47 | PC.NURSE ---
Assumed care of pt approx 0700, pt resting in stretcher with eyes closed. Resp even/unlabored. Upon awaking pt requesting prn pain medication for 10/10 generalized pain. Medicated per JAN. Pt took all medications without difficulty. Tolerating clear liquids at this time. IVF infusing per JAN. Pt now reporting increase pain level despite prn medication, moaning and calling out at times. Jez IRBY notified.
--- NOTE | 2025-08-14 09:56 | PHA.MEDREC ---
Pharmacy Consult ? Medication Reconciliation Pharmacy has completed the medication reconciliation. Patient knew medications but did say she has been out of both metformin and glipizide for roughly 2 weeks
--- NOTE | 2025-08-14 10:19 | PC.NURSE ---
Pt with intermittent periods of resting quietly with eyes closed, upon awaking pt moaning and yelling out. Pt continues to request to speak to provider regarding pain medication dosage.
--- NOTE | 2025-08-14 12:15 | PC.NURSE ---
Pt became upset and agitated, requesting increase in pain medication dose. PA aware and brought to bedside. Pt verbally deescalated, awaiting new q3h .5 mg dilaudid order. Pt still endorsing SI/self harm, awaiting psych team assessment.
--- NOTE | 2025-08-14 13:13 | MHC.CARE ---
CARE Team met with pt briefly on request of the hospitalist. He reports pt is asking to leave and has no interest in receiving medical care. Their concerns are regarding some SI statements that pt made. Pt did admit to, while speaking with CARE Team and with Hospitalist present, thoughts of suicide and self-harm. CARE Team placed pt on a section 12, 12 signed by ED provider, and was placed in pt's chart. CARE Team will assess pt when she is medically clear.
--- NOTE | 2025-08-14 13:16 | HO.PM.IMPN ---
Subjective Subjective Date of Service: 08/14/25 Interval History: Pt complains of all over body pain Screaming out when touched anywhere, though noted to be standing and pacing around bed without difficulty Demands more Dilaudid, agitated and belligerent when told we would try alternative regimens Endorses vague SI Care team consulted, pt sectioned Review of Systems Review of Systems: Yes all other systems are reviewed and are negative Physical Exam Exam: Exam: General: AOx3, anxious, belligerent, and agitated Resp: CTA bilaterally CVS: S1, S2, RRR GI: +BS, NT, no distention Skin: Warm, dry Musculoskeletal: Inappropriately tender to any palpation anywhere Neuro: Cranial nerves II-XII grossly intact bilaterally. Motor grossly intact bilaterally. Extremities: No edema Psych: Biliary, difficult to redirect. Demanding higher and more frequent doses of Dilaudid Vital Signs: Vital Signs: Last Vital Signs Temp 99.3 F 08/14/25 09:10 Pulse 97 08/14/25 09:10 Resp 13 08/14/25 09:10 BP 126/84 08/14/25 09:10 Pulse Ox 96 08/14/25 09:10 O2 Del Method Room Air 08/14/25 09:10 BMI result Body Mass Index 26.6 Objective Data Active Medications Acamprosate (Acamprosate Calcium 333 Mg Tablet.) 333 mg PO TID KATHY Acetaminophen (Acetaminophen 325 Mg Tablet) 650 mg PO Q6H PRN PRN Reason: Pain, Mild 1-3,fever,headache Calcium Carbonate (Calcium Carbonate 750 Mg Tab.Chew) 750 mg PO Q4H PRN PRN Reason: Heartburn Ceftriaxone Sodium (Ceftriaxone Sodium 1 Gm Vial) 1 gm IVPUSH Q24H [facility] Last Admin: 08/14/25 08:26 Dose: 1 gm Documented By: THUAN Clonidine HCl (Clonidine Hcl 0.1 Mg Tablet) 0.1 mg PO BID KATHY; Protocol Dextrose (Dextrose 50 % 25 Gm/50 Ml Syringe) 25 gm IVPUSH Q15M PRN; Protocol PRN Reason: per Hypoglycemia Standing Ord. Enoxaparin Sodium (Enoxaparin Sodium 40 Mg/0.4 Ml Syringe) 40 mg SUBCUT Q24H [facility] Last Admin: 08/14/25 08:30 Dose: 40 mg Documented By: THUAN Folic Acid (Folic Acid 1 Mg Tablet) 1 mg PO DAILY [facility] Stop: 08/17/25 08:59 Last Admin: 08/14/25 08:30 Dose: 1 mg Documented By: THUAN Gabapentin (Gabapentin 400 Mg Capsule) 800 mg PO TID [facility] Glipizide (Glipizide Xl 2.5 Mg Tab.Er.24) 2.5 mg PO DAILY [facility] Glucose (Glucose Gel 15 Gm Gel..Gram.) 15 gm PO Q15M PRN; Protocol PRN Reason: per Hypoglycemia Standing Ord. Hydromorphone HCl (Hydromorphone Hcl 0.5 Mg/0.5 Ml Syringe) 0.5 mg IVPUSH Q3H PRN; Protocol PRN Reason: Breakthrough Pain Last Admin: 08/14/25 12:26 Dose: 0.5 mg Documented By: DON-ALPHONSE Hydroxyzine HCl (Hydroxyzine Hcl 50 Mg Tablet) 100 mg PO QID PRN PRN Reason: Anxiety Last Admin: 08/14/25 11:01 Dose: 100 mg Documented By: THUAN Dextrose/Sodium Chloride (D51/2ns) 1,000 mls @ 100 mls/hr IVCONT .Q10H [facility] Last Admin: 08/14/25 03:54 Dose: 100 mls/hr Documented By: EMANI Insulin Human Lispro (Insulin Lispro 100 Unit/Ml 3 Ml Vial) 0 unit SUBCUT QIDACHS [facility]; Protocol Last Admin: 08/14/25 08:29 Dose: 6 unit Documented By: THUAN Magnesium Hydroxide (Milk Of Magnesia 30 Ml Oral.Susp) 30 ml PO DAILY PRN PRN Reason: Constipation Meclizine HCl (Meclizine Hcl 25 Mg Tablet) 25 mg PO BID PRN PRN Reason: Nausea Melatonin (Melatonin 3 Mg Tablet) 6 mg PO BEDTIME PRN PRN Reason: Insomnia Multivitamins/Vitamin C (Multivitamin Tablet) 1 tab PO DAILY [facility] Stop: 08/17/25 08:59 Last Admin: 08/14/25 08:30 Dose: 1 tab Documented By: THUAN Nicotine Polacrilex (Nicotine Polacrilex 2 Mg Gum) 4 mg BUCCAL Q2H PRN PRN Reason: Nicotine Cravings Nitrofurantoin Macrocrystals (Nitrofurantoin Monohyd/M-Cryst 100 Mg Capsule) 100 mg PO BID [facility] Stop: 08/21/25 08:59 Last Admin: 08/14/25 08:30 Dose: 100 mg Documented By: THUAN Oxcarbazepine (Oxcarbazepine 300 Mg Tablet) 600 mg PO BID [facility] Pantoprazole Sodium (Pantoprazole Sodium 40 Mg/10 Ml Vial) 40 mg IVPUSH DAILY@0630 [facility] Last Admin: 08/14/25 06:53 Dose: 40 mg Documented By: EMANI Pharmacy Consult (Consult Rx Etoh Phenob Im/Po) 1 each MISCELLANE ONCE PRN; Protocol PRN Reason: Consult order Phenobarbital (Phenobarbital 30 Mg Tablet) 60 mg PO Q4H PRN PRN Reason: Breakthrough alcohol withdraw Phenobarbital (Phenobarbital 15 Mg Tablet) 45 mg PO BID [facility]; Protocol Stop: 08/16/25 09:01 Phenobarbital (Phenobarbital 15 Mg Tablet) 15 mg PO BID [facility]; Protocol Stop: 08/18/25 09:01 Phenobarbital (Phenobarbital 15 Mg Tablet) 15 mg PO DAILY [facility]; Protocol Stop: 08/20/25 09:01 Risperidone (Risperidone 1 Mg Tablet) 1 mg PO BID [facility] Sodium Chloride (0.9 % Sodium Chloride Flush 3 Ml Syringe) 3 ml IVFLUSH QSHIFT [facility] Last Admin: 08/14/25 08:26 Dose: 3 ml Documented By: THUAN Thiamine HCl (Thiamine Hcl 100 Mg Tablet) 100 mg PO DAILY [facility] Stop: 08/17/25 08:59 Last Admin: 08/14/25 08:30 Dose: 100 mg Documented By: THUAN Trazodone HCl (Trazodone Hcl 100 Mg Tablet) 100 mg PO BEDTIME PRN PRN Reason: Insomnia Labs 08/14/25 02:55 08/14/25 02:55 Labs: Laboratory Results - last 24 hr 08/13/25 08/13/25 08/14/25 15:01 15:50 02:55 MCV 86.2 86.3 MCH 30.8 30.8 MCHC 35.7 H 35.6 H RDW 12.1 12.4 Plt Count 336 D 374 MPV 9.4 9.5 Immature Gran % (Auto) 0.3 0.2 Neut % (Auto) 69.5 36.3 L Lymph % (Auto) 26.1 53.6 H [place] % (Auto) 2.4 5.1 Eos % (Auto) 1.0 4.0 Baso % (Auto) 0.7 0.8 Lymph # (Auto) 3.2 6.6 H [place] # (Auto) 0.3 0.6 Eos # (Auto) 0.1 0.5 H Baso # (Auto) 0.1 0.1 Abs Immat Gran (auto) 0.04 H 0.02 Absolute Neuts (auto) 8.5 H 4.5 Absolute Nucleated RBC 0.000 0.000 Nucleated RBC % (auto) 0.0 0.0 Smear Tech's Comments VERIFIED Anion Gap 22 H 19 Estim Creat Clear Calc 143.7 Estimated GFR > 60 POC Glucose Random Glucose 204 H Calcium 9.3 Magnesium 2.2 Total Bilirubin 0.2 AST 55 H ALT 28 Alkaline Phosphatase 106 Total Protein 8.3 H Albumin 4.9 Lipase 6 L Beta HCG, Quant < 2 Urine Color Yellow Urine Appearance Clear Urine pH 5.5 Ur Specific [place] 1.020 Urine Protein 100 (2+) H Urine Glucose (UA) 250 H Urine Ketones Trace Urine Blood Large (3+) H Urine Nitrite Negative Ur Leukocyte Esterase Trace H Urine RBC 11-20 H Urine WBC 6-10 H Ur Squamous Epith Cells 11-20 Urine Bacteria Trace Hyaline Casts 0-2 Urine Opiates Screen Not Detected Ur Buprenorphine Scrn Not Detected Ur Oxycodone Screen Not Detected Urine Methadone Screen Not Detected Urine Fentanyl Screen Not Detected Ur Barbiturates Screen Not Detected Ur Phencyclidine Scrn POSITIVE H Ur Amphetamines Screen Not Detected U Benzodiazepines Scrn Not Detected Urine Cocaine Screen Not Detected U Marijuana (THC) Screen Not Detected Ethyl Alcohol 393 H* 08/14/25 08/14/25 08/14/25 02:55 02:55 02:55 MCV MCH MCHC RDW Plt Count MPV Immature Gran % (Auto) Neut % (Auto) Lymph % (Auto) [place] % (Auto) Eos % (Auto) Baso % (Auto) Lymph # (Auto) [place] # (Auto) Eos # (Auto) Baso # (Auto) Abs Immat Gran (auto) Absolute Neuts (auto) Absolute Nucleated RBC Nucleated RBC % (auto) Smear Tech's Comments Anion Gap 19 Estim Creat Clear Calc 131.7 131.7 Estimated GFR > 60 > 60 POC Glucose Random Glucose 272 H Calcium Magnesium Total Bilirubin AST ALT Alkaline Phosphatase Total Protein Albumin Lipase Beta HCG, Quant Urine Color Urine Appearance Urine pH Ur Specific [place] Urine Protein Urine Glucose (UA) Urine Ketones Urine Blood Urine Nitrite Ur Leukocyte Esterase Urine RBC Urine WBC Ur Squamous Epith Cells Urine Bacteria Hyaline Casts Urine Opiates Screen Ur Buprenorphine Scrn Ur Oxycodone Screen Urine Methadone Screen Urine Fentanyl Screen Ur Barbiturates Screen Ur Phencyclidine Scrn Ur Amphetamines Screen U Benzodiazepines Scrn Urine Cocaine Screen U Marijuana (THC) Screen Ethyl Alcohol 08/14/25 08/14/25 08/14/25 02:55 02:55 07:33 MCV MCH MCHC RDW Plt Count MPV Immature Gran % (Auto) Neut % (Auto) Lymph % (Auto) [place] % (Auto) Eos % (Auto) Baso % (Auto) Lymph # (Auto) [place] # (Auto) Eos # (Auto) Baso # (Auto) Abs Immat Gran (auto) Absolute Neuts (auto) Absolute Nucleated RBC Nucleated RBC % (auto) Smear Tech's Comments Anion Gap Estim Creat Clear Calc Estimated GFR POC Glucose 277 H Random Glucose 274 H Calcium 9.5 9.6 Magnesium Total Bilirubin 0.3 AST 49 H ALT 31 Alkaline Phosphatase 104 Total Protein 8.2 H Albumin 4.9 Lipase Beta HCG, Quant Urine Color Urine Appearance Urine pH Ur Specific [place] Urine Protein Urine Glucose (UA) Urine Ketones Urine Blood Urine Nitrite Ur Leukocyte Esterase Urine RBC Urine WBC Ur Squamous Epith Cells Urine Bacteria Hyaline Casts Urine Opiates Screen Ur Buprenorphine Scrn Ur Oxycodone Screen Urine Methadone Screen Urine Fentanyl Screen Ur Barbiturates Screen Ur Phencyclidine Scrn Ur Amphetamines Screen U Benzodiazepines Scrn Urine Cocaine Screen U Marijuana (THC) Screen Ethyl Alcohol Microbiology Microbiology Results: Microbiology 08/13/25 16:05 Urine Culture - Preliminary Urine clean catch - Clean Catch Midstream Culture too young to evaluate. Assessment and Plan (1) Alcohol use disorder: Status: Acute (2) Polysubstance use disorder: Status: Acute (3) Alcoholic intoxication: Status: Acute Plan 29-year-old female with a past medical history of alcohol use disorder, PTSD, bipolar presented to the hospital with a chief complaint of abdominal pain/fall/alcohol abuse Reported Fall with drug seeking behavior: Mechanical in nature, reports falling downstairs at home X-rays negative for any fractures of the elbow, wrist, no rib fracture. CT head pending Physical exam benign without significant bruising, inappropriate tenderness to any palpitation any where; seen pacing around bed and gesticulating without difficulties Pt exhibiting drug-seeking behavior: Demanding increased frequency and dosage of Dilaudid Avoid prolonged Alcohol use disorder: Monitor on CIWA protocol. Given phenobarbital. Thiamine folate and multivitamins Addiction medicine consult Monitor on telemetry Suicidal ideation: Sectioned [address] Suicide precautions. One on 1 observation. Care team evaluation once medically cleared Abdominal pain: Esophageal wall thickening: Patient denies any difficulty swallowing. Lipase within normal limits. CT showed atrophic pancreas. GI consulted, Carafate, omeprazole 40 mg daily Question of UTI: UA likely contaminated with 11-20 squamous epithelial cells No sepsis: Tachycardia chronic and secondary to anxiety Continue empiric ceftriaxone, started 08/14. Follow urine culture. Microscopic hematuria: Likely in the setting of UTI. Follow-up UA recommended to ensure improvement if not to follow up with Urology as outpatient. Anxiety/depression/PTSD: Continue home medications DVT prophylaxis: Lovenox Code status: Full code Quality Stroke Does the patient have a stroke diagnosis?: No VTE Prior VTE?: No VTE Risk Level:: Medical - moderate - high VTE Device Contraindication: Treatment Not Indicated VTE Drug Contraindication: N/A - Med Ordered
--- NOTE | 2025-08-14 13:47 | PC.NURSE ---
Pharmacy contacted for Campral dose. Awaiting arrival.
[2025-08-14 14:12] LABS: Glucose, Whole Blood 160 mg/dL (60-115)
--- NOTE | 2025-08-14 15:32 | MHC.RECOVRN ---
Pt is a 29-y/o female with a history of polysubstance use disorder, alcohol use disorder, bipolar disorder, PTSD, anemia, depression, and anxiety, who was brought to the ED by EMS in a somnolent presentation, reporting SI, difficulties controlling her EtOH use, and R wrist pain following a fall. Met with pt in ED 17 after receiving addiction consult for AUD to discuss recovery supports and options, as well as other resources. Upon approach pt was difficult to engage with as she would at times close her eyes and get distracted. During our conversation, pt reported drinking about 2 sleeves of Vodka daily. She states this has been going on for the past 3 days following conflict and break up with boyfriend. In the past, pt states she had achieved a 2-year period of sobriety following attending ATS/CSS programs. At this time pt says she is unable to recall which programs/facilities she has attended in the past. Pt is agreeable to meeting with the Addiction Medicine provider to discuss ROMARIO. Provider made aware. If patient agrees to ROMARIO initiation, an appointment with the [facility] will be scheduled. Pt did accept written materials on recovery supports such as on harm reduction, levels of care, AA meetings, and recovery coaching. Pt is planning on reviewing this material when she feels less fatigued. Pt did request that the ACS team continues to check in with her throughout her stay here. CARE Team eval pending as soon as pt is medically cleared, to determine treatment level of care for pt's reports of SI. No other questions or concerns offered at this time. Will continue to follow up with pt.
[2025-08-14 17:05] LABS: Glucose, Whole Blood 176 mg/dL (60-115)
[2025-08-14 20:12] LABS: Glucose, Whole Blood 121 mg/dL (60-115)
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
[2025-08-15] VITALS (7 sets, daily range): BP systolic 100–124; BP diastolic 55–83; PULSE 72–87; RESP 16–19; TEMP 35.8–36.6; O2SAT 96–100
[2025-08-15 07:44] LABS: Glucose, Whole Blood 228 mg/dL (60-115)
[2025-08-15] MEDS: 0.9 % Sodium Chloride Flush 3 ML SYRINGE IVFLUSH ×3 (08:47→20:55)
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
--- NOTE | 2025-08-15 11:17 | MHC.CM.PN ---
This CM met with pt. Pt drowsy, unable to fully engage in CM intake at this time, we reattempt when pt is more awake. Per MD rounds, pt is medically cleared for discharge, pysch/Care Team eval pending, pt may go to inpatient psych LOC.
[2025-08-15 11:34] LABS: Glucose, Whole Blood 148 mg/dL (60-115)
--- NOTE | 2025-08-15 16:12 | MHC.CM.PN ---
This CM met attempted to meet with pt again to complete CM intake assessment, pt sleeping soundly, unable to engage with this CM, unable to rouse, sitter present in room. CARE Team assessment pending.
[2025-08-15 16:21] LABS: Glucose, Whole Blood 213 mg/dL (60-115)
--- NOTE | 2025-08-15 17:53 | HO.PM.IMPN ---
Subjective Subjective Date of Service: 08/15/25 Interval History: Pt has appeared overly sedated at times during the day Continues to request pain medication and medication for sleep, though less disruptive than yesterday Has been switched to p.o. medications Last CIWA 0 Continues to complain of ?all-over body pain? Review of Systems Review of Systems: Yes all other systems are reviewed and are negative Physical Exam Exam: Exam: General: AOx3, drowsy Resp: CTA bilaterally CVS: S1, S2, RRR GI: +BS, NT, no distention Skin: Warm, dry Musculoskeletal: Occasional diffuse tenderness to palpation Neuro: Cranial nerves II-XII grossly intact bilaterally. Motor grossly intact bilaterally. Extremities: No edema Psych: More calm and cooperative today Vital Signs: Vital Signs: Last Vital Signs Temp 97.4 F 08/15/25 16:00 Pulse 87 08/15/25 16:00 Resp 16 08/15/25 16:00 BP 124/83 08/15/25 16:00 Pulse Ox 99 08/15/25 16:00 O2 Del Method Room Air 08/15/25 16:00 BMI result Body Mass Index 26.6 Objective Data Active Medications Acamprosate (Acamprosate Calcium 333 Mg Tablet.) 333 mg PO TID [facility] Last Admin: 08/15/25 16:33 Dose: 333 mg Documented By: SUZETTEDICHANI Acetaminophen (Acetaminophen 325 Mg Tablet) 650 mg PO Q6H PRN PRN Reason: Pain, Mild 1-3,fever,headache Calcium Carbonate (Calcium Carbonate 750 Mg Tab.Chew) 750 mg PO Q4H PRN PRN Reason: Heartburn Clonidine HCl (Clonidine Hcl 0.1 Mg Tablet) 0.1 mg PO BID KATHY; Protocol Last Admin: 08/15/25 08:46 Dose: 0.1 mg Documented By: SUZETTEDICHANI Dextrose (Dextrose 50 % 25 Gm/50 Ml Syringe) 25 gm IVPUSH Q15M PRN; Protocol PRN Reason: per Hypoglycemia Standing Ord. Enoxaparin Sodium (Enoxaparin Sodium 40 Mg/0.4 Ml Syringe) 40 mg SUBCUT Q24H [facility] Last Admin: 08/15/25 08:44 Dose: 40 mg Documented By: SUZETTEDICHANI Folic Acid (Folic Acid 1 Mg Tablet) 1 mg PO DAILY [facility] Stop: 08/17/25 08:59 Last Admin: 08/15/25 08:45 Dose: 1 mg Documented By: DAMASO Gabapentin (Gabapentin 400 Mg Capsule) 800 mg PO TID [facility] Last Admin: 08/15/25 16:32 Dose: 800 mg Documented By: DAMASO Glipizide (Glipizide Xl 2.5 Mg Tab.Er.24) 2.5 mg PO DAILY [facility] Last Admin: 08/15/25 08:44 Dose: 2.5 mg Documented By: DAMASO Glucose (Glucose Gel 15 Gm Gel..Gram.) 15 gm PO Q15M PRN; Protocol PRN Reason: per Hypoglycemia Standing Ord. Hydromorphone HCl (Hydromorphone Hcl 2 Mg Tablet) 2 mg PO Q4H PRN PRN Reason: Pain, Severe (Pain Scale 7-10) Last Admin: 08/15/25 13:32 Dose: 2 mg Documented By: DAMASO Hydroxyzine HCl (Hydroxyzine Hcl 50 Mg Tablet) 100 mg PO QID PRN PRN Reason: Anxiety Last Admin: 08/15/25 06:27 Dose: 100 mg Documented By: JOZEF Insulin Human Lispro (Insulin Lispro 100 Unit/Ml 3 Ml Vial) 0 unit SUBCUT QIDACHS [facility]; Protocol Last Admin: 08/15/25 16:33 Dose: 4 unit Documented By: DAMASO Magnesium Hydroxide (Milk Of Magnesia 30 Ml Oral.Susp) 30 ml PO DAILY PRN PRN Reason: Constipation Meclizine HCl (Meclizine Hcl 25 Mg Tablet) 25 mg PO BID PRN PRN Reason: Nausea Melatonin (Melatonin 3 Mg Tablet) 6 mg PO BEDTIME PRN PRN Reason: Insomnia Multivitamins/Vitamin C (Multivitamin Tablet) 1 tab PO DAILY [facility] Stop: 08/17/25 08:59 Last Admin: 08/15/25 08:46 Dose: 1 tab Documented By: DAMASO Nicotine Polacrilex (Nicotine Polacrilex 2 Mg Gum) 4 mg BUCCAL Q2H PRN PRN Reason: Nicotine Cravings Last Admin: 08/14/25 19:00 Dose: 4 mg Documented By: LETY Nicotine Polacrilex (Nicotine Polacrilex 2 Mg Gum) 2 mg BUCCAL Q1H PRN PRN Reason: Nicotine Cravings Omeprazole (Omeprazole 40 Mg Capsule.Dr) 40 mg PO DAILY@0630 [facility] Last Admin: 08/15/25 06:16 Dose: Not Given Documented By: JOZEF Non-Admin Reason: Patient Refused Oxcarbazepine (Oxcarbazepine 300 Mg Tablet) 600 mg PO BID [facility] Last Admin: 08/15/25 08:47 Dose: 600 mg Documented By: DAMASO Pharmacy Consult (Consult Rx Etoh Phenob Im/Po) 1 each MISCELLANE ONCE PRN; Protocol PRN Reason: Consult order Phenobarbital (Phenobarbital 30 Mg Tablet) 60 mg PO Q4H PRN PRN Reason: Breakthrough alcohol withdraw Phenobarbital (Phenobarbital 15 Mg Tablet) 45 mg PO BID [facility]; Protocol Stop: 08/16/25 09:01 Last Admin: 08/15/25 08:44 Dose: 45 mg Documented By: DAMASO Phenobarbital (Phenobarbital 15 Mg Tablet) 15 mg PO BID [facility]; Protocol Stop: 08/18/25 09:01 Phenobarbital (Phenobarbital 15 Mg Tablet) 15 mg PO DAILY [facility]; Protocol Stop: 08/20/25 09:01 Risperidone (Risperidone 1 Mg Tablet) 1 mg PO BID [facility] Last Admin: 08/15/25 08:46 Dose: 1 mg Documented By: DAMASO Sodium Chloride (0.9 % Sodium Chloride Flush 3 Ml Syringe) 3 ml IVFLUSH QSHIFT [facility] Last Admin: 08/15/25 16:32 Dose: 3 ml Documented By: DAMASO Sucralfate (Sucralfate 1 Gm Tablet) 1 gm PO BIDAC [facility] Last Admin: 08/15/25 16:33 Dose: 1 gm Documented By: DAMASO Thiamine HCl (Thiamine Hcl 100 Mg Tablet) 100 mg PO DAILY [facility] Stop: 08/17/25 08:59 Last Admin: 08/15/25 09:27 Dose: 100 mg Documented By: DAMASO Trazodone HCl (Trazodone Hcl 100 Mg Tablet) 100 mg PO BEDTIME PRN PRN Reason: Insomnia Last Admin: 08/14/25 21:53 Dose: 100 mg Documented By: JOZEF Labs 08/14/25 02:55 08/14/25 02:55 Labs: Laboratory Results - last 24 hr 08/14/25 08/14/25 08/15/25 02:55 20:08 07:35 Smear Path Review SEE NOTE POC Glucose 121 H 228 H 08/15/25 08/15/25 11:08 16:16 Smear Path Review POC Glucose 148 H 213 H Microbiology Microbiology Results: Microbiology 08/13/25 16:05 Urine Culture - Final Urine clean catch - Clean Catch Midstream Strep agalactiae (Grp B) Assessment and Plan (1) Alcoholic intoxication: Status: Acute Plan 29-year-old female with a past medical history of alcohol use disorder, PTSD, bipolar presented to the hospital with a chief complaint of abdominal pain/fall/alcohol abuse Reported Fall with drug seeking behavior: Mechanical in nature, reports falling downstairs at home CT of head negative; X-rays negative for any fractures of the elbow, wrist, no rib fracture. Physical exam benign without significant bruising, inappropriate tenderness to any palpitation; pt without difficulties moving on her own Pt exhibiting drug-seeking behavior: Demanding increased frequency and dosage of Dilaudid Avoid prolonged opioid use Alcohol use disorder: Monitor on CIWA protocol. Current CIWA negative Started on phenobarbital protocol Thiamine, folate, and multivitamins Addiction medicine consult Monitor on telemetry Suicidal ideation: Sectioned [address] Suicide precautions. One on 1 observation. Care team consulted as pt is now medically cleared Abdominal pain: Esophageal wall thickening: Patient denies any difficulty swallowing. Lipase within normal limits. CT showed atrophic pancreas. GI consulted, Carafate, omeprazole 40 mg daily Question of UTI: UA contaminated with 11-20 squamous epithelial cells No sepsis: Tachycardia chronic and secondary to anxiety Empiric ceftriaxone dc'd Anxiety/depression/PTSD: Continue home medications DVT prophylaxis: Lovenox Code status: Full code Pt now medically cleared and needs care team eval for inpatient psychiatric bed search. Quality Stroke Does the patient have a stroke diagnosis?: No VTE Prior VTE?: No VTE Risk Level:: Medical - moderate - high VTE Device Contraindication: Treatment Not Indicated VTE Drug Contraindication: N/A - Med Ordered
[2025-08-15 20:22] LABS: Glucose, Whole Blood 141 mg/dL (60-115)
[2025-08-16] VITALS (7 sets, daily range): BP systolic 102–117; BP diastolic 54–74; PULSE 69–89; RESP 16–20; TEMP 36.4–36.7; O2SAT 95–100
[2025-08-16 07:36] LABS: Glucose, Whole Blood 176 mg/dL (60-115)
[2025-08-16] MEDS: 0.9 % Sodium Chloride Flush 3 ML SYRINGE IVFLUSH (09:01)
--- NOTE | 2025-08-16 09:21 | MHC.CM.PN ---
CM intake completed by chart review, as pt agitated and pacing the unit, attempting to elope via the elevators, 1:1 staff present with pt. Pt self-care, lives at home with her uncle. DCP: pending inpatient psych bed. PCP: pt goes to [facility].
[2025-08-16 11:44] LABS: Glucose, Whole Blood 121 mg/dL (60-115)
[2025-08-16 15:32] LABS: Glucose, Whole Blood 308 mg/dL (60-115)
--- NOTE | 2025-08-16 16:06 | HO.PM.IMPN ---
Subjective Subjective Date of Service: 08/16/25 Interval History: Continues to act out with history on Narendra. Section 12 ongoing Review of Systems Unable to obtain Physical Exam Vital Signs: Vital Signs: Last Vital Signs Temp 97.8 F 08/16/25 07:41 Pulse 82 08/16/25 15:59 Resp 20 08/16/25 15:59 BP 114/73 08/16/25 15:59 Pulse Ox 100 08/16/25 15:59 O2 Del Method Room Air 08/16/25 15:59 BMI result Body Mass Index 26.6 Const: Other: Awake alert oriented x3 no acute distress Resp: Other: Clear to auscultation bilaterally no rales rhonchi or wheezes Cardio: Other: No S4; positive S1-S2; no S3 murmurs rubs or gallops GI: Other: Soft nontender nondistended normoactive bowel sounds Extrem: Other: No edema bilaterally Objective Data Active Medications Acamprosate (Acamprosate Calcium 333 Mg Tablet.) 333 mg PO TID [facility] Last Admin: 08/16/25 15:24 Dose: 333 mg Documented By: DAMASO Acetaminophen (Acetaminophen 325 Mg Tablet) 650 mg PO Q6H PRN PRN Reason: Pain, Mild 1-3,fever,headache Calcium Carbonate (Calcium Carbonate 750 Mg Tab.Chew) 750 mg PO Q4H PRN PRN Reason: Heartburn Clonidine HCl (Clonidine Hcl 0.1 Mg Tablet) 0.1 mg PO BID [facility]; Protocol Last Admin: 08/16/25 09:01 Dose: 0.1 mg Documented By: DAMASO Dextrose (Dextrose 50 % 25 Gm/50 Ml Syringe) 25 gm IVPUSH Q15M PRN; Protocol PRN Reason: per Hypoglycemia Standing Ord. Enoxaparin Sodium (Enoxaparin Sodium 40 Mg/0.4 Ml Syringe) 40 mg SUBCUT Q24H [facility] Last Admin: 08/16/25 09:08 Dose: Not Given Documented By: DAMASO Non-Admin Reason: Patient Refused Folic Acid (Folic Acid 1 Mg Tablet) 1 mg PO DAILY [facility] Stop: 08/17/25 08:59 Last Admin: 08/16/25 09:01 Dose: 1 mg Documented By: DAMASO Gabapentin (Gabapentin 400 Mg Capsule) 800 mg PO TID [facility] Last Admin: 08/16/25 15:24 Dose: 800 mg Documented By: DAMASO Glipizide (Glipizide Xl 2.5 Mg Tab.Er.24) 2.5 mg PO DAILY [facility] Last Admin: 08/16/25 09:01 Dose: 2.5 mg Documented By: DAMASO Glucose (Glucose Gel 15 Gm Gel..Gram.) 15 gm PO Q15M PRN; Protocol PRN Reason: per Hypoglycemia Standing Ord. Hydromorphone HCl (Hydromorphone Hcl 2 Mg Tablet) 1 mg PO Q6H PRN PRN Reason: Pain, Severe (Pain Scale 7-10) Last Admin: 08/16/25 11:46 Dose: 1 mg Documented By: DAMASO Hydroxyzine HCl (Hydroxyzine Hcl 50 Mg Tablet) 100 mg PO QID PRN PRN Reason: Anxiety Last Admin: 08/15/25 06:27 Dose: 100 mg Documented By: JOZEF Insulin Human Lispro (Insulin Lispro 100 Unit/Ml 3 Ml Vial) 0 unit SUBCUT QIDACHS [facility]; Protocol Last Admin: 08/16/25 15:29 Dose: 8 unit Documented By: DAMASO Magnesium Hydroxide (Milk Of Magnesia 30 Ml Oral.Susp) 30 ml PO DAILY PRN PRN Reason: Constipation Meclizine HCl (Meclizine Hcl 25 Mg Tablet) 25 mg PO BID PRN PRN Reason: Nausea Melatonin (Melatonin 3 Mg Tablet) 6 mg PO BEDTIME PRN PRN Reason: Insomnia Last Admin: 08/16/25 02:47 Dose: 6 mg Documented By: JOZEF Multivitamins/Vitamin C (Multivitamin Tablet) 1 tab PO DAILY [facility] Stop: 08/17/25 08:59 Last Admin: 08/16/25 09:01 Dose: 1 tab Documented By: DAMASO Nicotine Polacrilex (Nicotine Polacrilex 2 Mg Gum) 4 mg BUCCAL Q2H PRN PRN Reason: Nicotine Cravings Last Admin: 08/14/25 19:00 Dose: 4 mg Documented By: LETY Nicotine Polacrilex (Nicotine Polacrilex 2 Mg Gum) 2 mg BUCCAL Q1H PRN PRN Reason: Nicotine Cravings Omeprazole (Omeprazole 40 Mg Capsule.) 40 mg PO DAILY@0630 [facility] Last Admin: 08/16/25 06:01 Dose: Not Given Documented By: JOZEF Non-Admin Reason: Patient Refused Oxcarbazepine (Oxcarbazepine 300 Mg Tablet) 600 mg PO BID [facility] Last Admin: 08/16/25 09:00 Dose: 600 mg Documented By: DAMASO Pharmacy Consult (Consult Rx Etoh Phenob Im/Po) 1 each MISCELLANE ONCE PRN; Protocol PRN Reason: Consult order Phenobarbital (Phenobarbital 30 Mg Tablet) 60 mg PO Q4H PRN PRN Reason: Breakthrough alcohol withdraw Phenobarbital (Phenobarbital 15 Mg Tablet) 15 mg PO BID [facility]; Protocol Stop: 08/18/25 09:01 Phenobarbital (Phenobarbital 15 Mg Tablet) 15 mg PO DAILY [facility]; Protocol Stop: 08/20/25 09:01 Risperidone (Risperidone 1 Mg Tablet) 1 mg PO BID [facility] Last Admin: 08/16/25 09:00 Dose: 1 mg Documented By: DAMASO Sodium Chloride (0.9 % Sodium Chloride Flush 3 Ml Syringe) 3 ml IVFLUSH QSHIFT [facility] Last Admin: 08/16/25 15:31 Dose: Not Given Documented By: DAMASO Non-Admin Reason: No Access Sucralfate (Sucralfate 1 Gm Tablet) 1 gm PO BIDAC [facility] Last Admin: 08/16/25 15:24 Dose: 1 gm Documented By: DAMASO Thiamine HCl (Thiamine Hcl 100 Mg Tablet) 100 mg PO DAILY [facility] Stop: 08/17/25 08:59 Last Admin: 08/16/25 09:01 Dose: 100 mg Documented By: DAMASO Trazodone HCl (Trazodone Hcl 100 Mg Tablet) 100 mg PO BEDTIME PRN PRN Reason: Insomnia Last Admin: 08/15/25 20:52 Dose: 100 mg Documented By: JOZEF Labs 08/14/25 02:55 08/14/25 02:55 Labs: Laboratory Results - last 24 hr 08/15/25 08/15/25 08/16/25 16:16 20:19 07:32 POC Glucose 213 H 141 H 176 H 08/16/25 08/16/25 11:40 15:25 POC Glucose 121 H 308 H Assessment and Plan (1) Alcohol use disorder: Status: Acute Plan 29-year-old female with a past medical history of alcohol use disorder, PTSD, bipolar presented to the hospital with a chief complaint of abdominal pain/fall/alcohol abuse 1.Alcohol use disorder -CIWA 0 -continue phenobarb protocol -Thiamine, folate, and multivitamins 2. Suicidal ideation -Sectioned [address] -Suicide precautions. -one-to-one observation -medically acceptable for transfer to psych inpatient -awaiting bed DVT prophylaxis: Lovenox Code status: Full code Pt now medically cleared and needs care team eval for inpatient psychiatric bed search. Quality Stroke Does the patient have a stroke diagnosis?: No VTE Prior VTE?: No VTE Risk Level:: Medical - moderate - high VTE Device Contraindication: Treatment Not Indicated VTE Drug Contraindication: N/A - Med Ordered
[2025-08-16 21:17] LABS: Glucose, Whole Blood 175 mg/dL (60-115)
[2025-08-17 04:00] VITALS: BP 98/62; PULSE 80; RESP 16; TEMP 36.6; O2SAT 97
[2025-08-17 07:44] VITALS: BP 100/57; PULSE 76; RESP 18; TEMP 36.8; O2SAT 95
--- NOTE | 2025-08-17 12:06 | PM.DS ---
DS: Providers Provider Date of Service: 08/17/25 Date of admission: 08/14/25 02:15 Date of discharge: 08/17/25 Primary care physician: Unknown Physician Consults: 08/13/25 16:00 ED CARE Team Crisis Consult Stat Comment: Reason for consultation: passive SI ED Recovery Team Consult Stat Comment: Reason for consultation: wants help with ETOH 08/14/25 02:15 Consult to Gastroenterology Routine Consulting [place] [facility] Reason for consultation: esophageal wall thickening; pancreatic atrophy 08/14/25 09:51 Addiction Medicine Provider Routine Consulting Provider: Addiction Covering Reason for consultation: Polysubstance use disorder 08/15/25 10:53 Consult to Psychiatry Routine Consulting [place] [facility] [facility] Reason for consultation: Vague SI, on section 12, medically cleared 08/15/25 17:52 Inpt CARE Team Crisis Consult Routine Comment: Reason for consultation: Pt medically cleared for discharge; on section 12 for SI DS: Diagnosis Discharge Diagnosis (1) Alcohol use disorder: Status: Acute (2) Bipolar disorder: Status: Acute DS: Summary Hospital Course Hospital Course: 29-year-old female with a past medical history of alcohol use disorder, PTSD, bipolar presented to the hospital with a chief complaint of abdominal pain. Patient mentioned that she drinks alcohol every day. Yesterday she had drunk more than her usual. Mentioned that she was climbing down the stairs and tripped and fell over; and rolled over last 7 stairs. Reports having pain in her right wrist and elbow; also had head strike. Denies any loss of consciousness Patient mentions that over the past couple days she has been. Reports she has prior history of pancreatitis. Patient reports being tremulous, anxious. Denies any fevers and chills. Denies any cough or sputum production. Denies any urinary symptoms. Patient also reports having ideas of hurting herself/suicidal ideation prior to coming to the hospital. Review of all other systems is negative except mentioned above ER course: Per ER team, patient expressed suicidal ideation prior to coming to the hospital. Reported abdominal discomfort. Was tremulous. Concern for alcohol withdrawal. Given Valium. X-ray of the right wrist and elbow was done which showed no evidence of fracture. CT head showed atrophic pancreas chronic. Lipase negative. [facility] Admitted to telemetry where monitor failed to demonstrate any acute dysrhythmias observed on CIWA scale with no overt signs of withdrawal. Maintained on phenobarb protocol which is now complete. Seen in consultation by care team and deemed appropriate for inpatient psychiatric placement. At this point in time she is medically acceptable for same Time Attestation Discharge Coordination Time (in mins): 35 Quality: Safe Use of Opioids Does Pt have an Active Cancer Diagnosis on the Problem List?: No Quality: Stroke Does the patient have a stroke diagnosis?: No Physical Exam Vital Signs: Vital Signs: Last Vital Signs Temp 98.2 F 08/17/25 07:44 Pulse 76 08/17/25 07:44 Resp 18 08/17/25 07:44 BP 100/57 L 08/17/25 07:44 Pulse Ox 95 08/17/25 07:44 O2 Del Method Room Air 08/17/25 07:44 BMI result Body Mass Index 26.6 Const: Other: Awake alert oriented x3 no acute distress Resp: Other: Clear to auscultation bilaterally no rales rhonchi or wheezes Cardio: Other: No S4; positive S1-S2; no S3 murmurs rubs or gallops GI: Other: Soft nontender nondistended normoactive bowel sounds Extrem: Other: No edema bilaterally DS: Data Data Completed and Pending Completed studies during hospitalization [Text1]: Procedures Insertion of Infusion Device into Upper Vein, Percutaneous Approach (06/20/25) Labs on day of discharge: Laboratory Results - last 24 hr 08/16/25 08/16/25 15:25 21:12 POC Glucose 308 H 175 H Discharge Plan Discharge Anticipated Discharge Date/Time: 08/17/25 11:58 Patient Disposition: Xfer Psychiatric Hosp Discharge Diagnosis: Suicidal ideation Referrals: Physician,Unknown J [Primary Care Provider, Medical] - 1 Week Discharge Medications: New sucralfate 1 gram Tablet 1 g PO BIDAC Qty: 30 0RF omeprazole 40 mg Capsule,Delayed Release(Dr/Ec) 40 mg PO DAILY@0630 Qty: 30 0RF ondansetron 8 mg Tablet,Disintegrating 8 mg translingual Q8H PRN (Reason: Nausea And Vomiting) Qty: 30 0RF Continued acamprosate 333 mg Tablet,Delayed Release (Dr/Ec) 333 mg PO TID 30 Days Qty: 90 0RF trazodone 100 mg Tablet 100 mg PO BEDTIME PRN (Reason: Insomnia) 30 Days Qty: 30 0RF glipizide 2.5 mg Tablet Extended Release 24hr 2.5 mg PO DAILY 30 Days Qty: 30 0RF nicotine (polacrilex) 4 mg gum 4 mg buccal Q2H PRN (Reason: nicotine cravings) 30 Days Qty: 100 0RF oxcarbazepine 600 mg tablet 600 mg PO BID 30 Days Qty: 60 0RF meclizine 25 mg tablet 25 mg PO BID PRN (Reason: nausea) risperidone 1 mg tablet 1 mg PO BID clonidine HCl 0.1 mg tablet 0.1 mg PO BID metformin 750 mg tablet extended release 24 hr 750 mg PO BID hydroxyzine pamoate 100 mg capsule 100 mg PO QID PRN (Reason: anxiety) Discontinued gabapentin 800 mg tablet 800 mg PO TID 30 Days Qty: 90 0RF melatonin 5 mg tablet 20 mg PO BEDTIME Certavite-Antioxidant 18-400 mg-mcg tablet 1 tab PO DAILY Discharge Orders: Discharge Order (Routine); Ordered 08/17/25 Ordered By: Wilver Garcia Diet: Advance to usual diet Activity on Discharge: As tolerated Stand Alone Forms: Patient Portal Discharge page Print Language: [place] Care Plan Goals: Continue all meds as per transfer sheet Health Concerns: As per receiving clinician Plan of Treatment: Transferred to inpatient psych Assessment: See discharge summary
--- NOTE | 2025-08-17 13:30 | MHC.CM.PN ---
Pt is transferring to inpatient psych level of care.
== END 2025-08-17 12:52 | DRG 775 ==
LOC: HO.ED 08-14 02:03 → HO.EDOVER 08-14 02:21 → HO.IMC 08-14 15:19
PROVIDERS: Emergency Medicine; Student in an Organized Health Care Education/Training Program; Admitting Provider Hospitalist; Emergency Provider Emergency Medicine; Visit Provider Hospitalist
DX: F10.139 Alcohol abuse with withdrawal, unspecified (principal); F10.129 Alcohol abuse with intoxication, unspecified; R45.851 Suicidal ideations; F41.9 Anxiety disorder, unspecified; F19.90 Other psychoactive substance use, unspecified, uncomplicated; Y90.8 Blood alcohol level of 240 mg/100 ml or more; N39.0 Urinary tract infection, site not specified; R31.29 Other microscopic hematuria; G40.909 Epilepsy, unspecified, not intractable, without status epilepticus; F43.10 Post-traumatic stress disorder, unspecified; W19.XXXA Unspecified fall, initial encounter; Z79.84 Long term (current) use of oral hypoglycemic drugs; Z79.899 Other long term (current) drug therapy
CPT/HCPCS: 36415; 70450; 71101; 73080; 73110; 74177; 80048; 80053; 80307; 81001; 81003; 82947; 83690; 83735; 84702; 85025; 87086; 87147; 93005; 99285; J0696; J1171; J1200; J1650; J2250; J2359; J2405; J2470; J2560; J3360; J3411; J7120; Q9967; S9485

== ENCOUNTER → 2025-08-13 16:24 | Outpatient (BNV) | payer MEDICAID, SELFPAY | PROVIDERS: Admitting Provider Hospitalist; Emergency Provider Emergency Medicine; Visit Provider Internal Medicine Cardiovascular Disease | DX: F10.929 Alcohol use, unspecified with intoxication, unspecified (principal) | CPT/HCPCS: 93010 ==

== ENCOUNTER → 2025-08-13 16:55 | Outpatient (BNV) | payer MEDICAID, SELFPAY | PROVIDERS: Emergency Provider Emergency Medicine; Visit Provider Student in an Organized Health Care Education/Training Program | DX: R10.13 Epigastric pain (principal); S20.212A Contusion of left front wall of thorax, initial encounter; M25.531 Pain in right wrist; M25.521 Pain in right elbow; Y04.2XXA Assault by strike against or bumped into by another person, initial encounter | CPT/HCPCS: 71101; 73080; 73110; 74177 ==

== ENCOUNTER 2025-08-14 02:15 | Outpatient (BNV) | payer MEDICAID, SELFPAY | END 2025-08-15 07:00 | PROVIDERS: Admitting Provider Hospitalist; Emergency Provider Emergency Medicine; Visit Provider Radiology Diagnostic Radiology | DX: Z04.3 Encounter for examination and observation following other accident (principal) | CPT/HCPCS: 70450 ==

== ENCOUNTER → 2025-08-14 02:15 | Outpatient (BNV) | payer MEDICAID, SELFPAY | PROVIDERS: Admitting Provider Hospitalist; Emergency Provider Emergency Medicine; Visit Provider Internal Medicine Gastroenterology | DX: R10.13 Epigastric pain (principal) | CPT/HCPCS: 99223 ==

== ENCOUNTER → 2025-08-14 02:15 | Outpatient (BNV) | payer MEDICAID, SELFPAY | PROVIDERS: Admitting Provider Hospitalist; Emergency Provider Emergency Medicine; Visit Provider Student in an Organized Health Care Education/Training Program | DX: F10.929 Alcohol use, unspecified with intoxication, unspecified (principal) | CPT/HCPCS: 99223; 99233; 99499 ==

== ENCOUNTER → 2025-08-14 02:15 | Outpatient (BNV) | payer OTHER, SELFPAY | PROVIDERS: Admitting Provider Hospitalist; Emergency Provider Emergency Medicine; Visit Provider Nurse Practitioner Psychiatric/Mental Health | DX: F10.939 Alcohol use, unspecified with withdrawal, unspecified (principal) | CPT/HCPCS: 99232 ==

== ENCOUNTER 2025-08-17 12:57 | Inpatient (IN) | payer OTHER, SELFPAY ==
[2025-08-17 13:27] VITALS: BMI 26.4
--- NOTE | 2025-08-17 13:40 | HO.PM.IMCN ---
History of Present Illness Data of Consult Service Date: 08/17/25 Primary Care Provider: Unknown Physician HPI Reason for consult: Medical management 29-year-old female with past medical history of type 2 diabetes, PTSD, bipolar disorder, alcohol use disorder, polysubstance use disorder presented to ED with suicidal ideation prior to coming to the hospital. Reported abdominal discomfort. Was tremulous. There was concern for alcohol withdrawal, she was give valium, X-ray of the right wrist and elbow was done which showed no evidence of fracture. CT head negative for ICH or fracture. showed CT abdomen showed chronic atrophic pancreas. Lipase negative. She was admitted to telemetry which was uneventful for any acute dysrhythmias. She was observed on a CIWA scale with no signs of withdrawal, she was placed on a phenobarbital protocol which she completed. She was stabilized and now admitted to psych for further treatment. On exam she is alert and cooperative, denies any shortness of breath, chest pain, dizziness lightheadedness or any concerning symptoms. She is reporting some vaginal itching and discomfort. Also slight burning with urination. Review of Systems Review of Systems: Denies any shortness of breath, chest pain, dizziness, lightheadedness, abdominal pain or discomfort, nausea vomiting or diarrhea PMFSH Medical History PTSD (post-traumatic stress disorder) Polysubstance use disorder Alcohol use disorder Bipolar disorder Social History Household Members: Family Household Members Other:: 3 Housing: House Do you presently have visiting nurse or other home services: No Alcohol intake: current Alcohol intake frequency: other Alcohol type: hard liquor Comment: sitter Patient Tobacco Use Status: Never used Tobacco Tobacco use type: Cigarette Cigarettes Per Day: 7 e-Cigarette/Vaping Use: Currently Using Second Hand Smoke Exposure: No Substance Use Type: Opiates and Other service: No Sexual orientation: Unable to collect Meds Allergies Allergy/AdvReac Type Severity Reaction Status Date / Time SEAFOOD Allergy Unknown UNK Uncoded 08/13/25 14:15 Active Medications: Current Medications Acetaminophen (Acetaminophen 325 Mg Tablet) 650 mg PO Q6H PRN PRN Reason: Headache/Pain, Scale 1-10 Al Hydroxide/Mg Hydroxide (Magnesium Hydrox/Alum Hydrox 30 Ml Oral.Susp) 30 ml PO Q6H PRN PRN Reason: Heartburn/Nausea Hydroxyzine HCl (Hydroxyzine Hcl 25 Mg Tablet) 25 mg PO Q6H PRN PRN Reason: mild anxiety Magnesium Hydroxide (Milk Of Magnesia 30 Ml Oral.Susp) 30 ml PO DAILY PRN PRN Reason: Constipation Nicotine Polacrilex (Nicotine Polacrilex 2 Mg Gum) 4 mg BUCCAL Q2H PRN PRN Reason: Nicotine Cravings Trazodone HCl (Trazodone Hcl 50 Mg Tablet) 50 mg PO BEDTIME MRX1 PRN PRN Reason: Insomnia Home Medications ?Medication ?Instructions ?Recorded ?Confirmed ?Last Taken ?Type clonidine HCl 0.1 mg tablet 0.1 mg PO BID 08/14/25 08/17/25 08/17/25 08:47 History hydroxyzine pamoate 100 mg capsule 100 mg PO QID PRN anxiety 08/14/25 08/17/25 08/12/25 History meclizine 25 mg tablet 25 mg PO BID PRN nausea 08/14/25 08/17/25 08/12/25 History metformin 750 mg tablet,extended 750 mg PO BEDTIME 08/14/25 08/17/25 08/12/25 History release 24 hr risperidone 1 mg tablet 1 mg PO BID 08/14/25 08/17/25 08/17/25 08:48 History gabapentin 800 mg tablet 800 mg PO TID 08/17/25 08/17/25 08/17/25 08:47 History hydromorphone 2 mg tablet 1 mg PO Q6H 08/17/25 08/17/25 08/17/25 08:48 History (Dilaudid) insulin lispro 100 unit/mL 1 sliding scale dose subcut 08/17/25 08/17/25 08/16/25 21:32 History subcutaneous solution USEASDIRECTD melatonin 3 mg tablet 6 mg PO BEDTIME PRN Insomnia 08/17/25 08/17/25 08/16/25 02:47 History phenobarbital 15 mg tablet 15 mg PO BID 08/17/25 08/17/25 08/17/25 08:47 History phenobarbital 15 mg tablet 15 mg PO DAILY 08/17/25 08/17/25 Unknown History Physical Exam Vital Signs and Narrative: Vital Signs: Last Vital Signs Temp 98.5 F 08/17/25 13:27 Pulse 80 08/17/25 13:27 Resp 16 08/17/25 13:27 BP 137/78 08/17/25 13:27 Pulse Ox 100 08/17/25 13:27 O2 Del Method Room Air 08/17/25 13:27 BMI result Body Mass Index 26.4 CONST: Alert and oriented, in NAD. Well nourished HEENT: Normocephalic, atraumatic, MMM, Eyes clear, Neck supple RESP: Lungs clear, RRR even and regular HEART:,RRR, S1, S2. No murmur, no edema GI:Abdomen Soft NT, ND. + BS times four :Deferred SKIN: Warm dry and intact, no visible lesions or rashes NEURO:CN II-XII Intact bilaterally, Sensation intact. Speech clear PSYCH: Normal affect, appears slightly sedated. Cooperative and friendly Assessment and Plan (1) Diabetes: Status: Acute Plan 29-year-old female with a past medical history of type 2 diabetes, PTSD, polysubstance use disorder alcohol use disorder, depression, bipolar disorder, anxiety, and suicidal ideations was initially admitted to the hospital for concerns of alcohol withdrawal, monitored on tele with no events, eventually stabilized and now she is transferred to inpatient psych for further care. Alcohol use disorder/Depression/Bipolar DO/Anxiety/SI Initially admitted for withdrawal, now admitted to inpatient psych for further care. Treatment per psych team. Type 2 DM Recent Hgb A1C is 13.1 in May we will repeat. Continue metformin and glipizide Diabetic diet Continue on Metformin, add glipizide. We will add Trulicity if A1c continues to be elevated despite addition of metformin and glipizide. Will need close follow up upon discharge including diabetes education, PCP and possible endocrinology follow up. Possible home care for medication management and teaching. Vaginal itch and burning We will check BV swab and urinalysis. We will check for . Thank you for allowing me to participate in the care of this patient. Will follow as needed, please notify medical provider with any changes in condition or concerns.
[2025-08-17 13:50] VITALS: BP 137/78; PULSE 80; RESP 16; TEMP 36.9; O2SAT 100
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
[2025-08-17] MEDS: Magnesium Hydrox/Alum Hydrox 30 ML ORAL.SUSP PO (15:29)
--- NOTE | 2025-08-17 15:59 | PC.NURSE ---
pt refused flu vaccine at this time
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
--- OUTSIDE RECORDS SUMMARY | 2025-08-17 16:24 | XMS_ITS | Clinical Summary ---
Author Organization [facility] Address [address] [place] [address] Care Team Providers Care Forming Department Supervisor Name Role Phone Stephen Michael ZHU Primary Care Provider [phone] Source Comments PLEASE NOTE, if this patient [...] needed for nausea. 30 Tablet 5 Active hydrOXYzine HCL (ATARAX) 25 mg tabletIndicatio ns:Generalized [...] Noted Date Diagnosed Date Bipolar I disorder ([facility]) 09/04/2023 Alcohol use disorder, severe ([facility]) 03/2023 Generalized anxiety disorder 09/04/2023 Encounters Date Type Department Care Team Description 08/04/2025 Results Follow-Up [address] [address] Michael Mitchell NP 08/02/2025 1:20 PM EDT Office Visit [address] [address] Michael Mitchell NP 07/18/2025 2:20 PM EDT Office Visit [address] [address] Michael Mitchell NP 06/23/2025 Interim Notes [address] [address] Rosemary Lam 06/20/2025 Interim Notes [address] [address] Rosemary Lam from Last 3 Months Family [...] Cervical Cancer Screening 2016 Pap Smear 2016 Imm-HPV (1 - 3-dose SCDM series) 2022 [id number] ( season) 2025 Imm-Influenza (#1) 2025 12/01/2021 Depression Monitoring 10/18/2025 [...] JEFF NON-REACT JEFF 08/03/2025 6:44 AM EDT [employer] Blood Blood / Unknown 08/02/2025 1 :49 PM EDT 08/03/2025 4:47 AM EDT Narrative [employer] [facility] - 08/03/2025 7:13 AM EDT FASTING:NO . HCV antibody was non-reactive. There is no laboratory evidence of HCV infection. . In most cases, no further action is required. However, if recent HCV exposure is suspected, a test for HCV RNA (test code 62417) is suggested. . For additional information please refer to http://education.Viamericas/faq/BGR61q1 (This link is being provided for informational/ educational purposes only.) . us Michael Mitchell NP LAB - BLOOD DRAW Final Result [employer] [address] [address], [employer] [address] [address] * HIV 1/2 AG & AB W/RFLX (4TH GEN) Routine (08/02/2025 1:49 PM EDT) HIV Screen Final SEE NOTE 08/03/2025 6:44 AM EDT [employer] [facility] HIV AG/AB, 4TH GEN NON-REACT JEFF NON-REACT JEFF 08/03/2025 6:44 AM EDT [employer] [facility] Blood Blood / Unknown 08/02/2025 1 :49 PM EDT 08/03/2025 4:49 AM EDT [employer] [facility] - 08/03/2025 7:13 AM EDT FASTING:NO HIV Negative . HIV-1 antigen and HIV-1/HIV-2 antibodies were not detected. There is no laboratory evidence of HIV infection. [facility] LAB - BLOOD DRAW Final Result Performing Organization Address [facility] de Phone Number [employer] [address] [address], [employer] [address] [address] * TSH W/RFLX FREE T4 Routine (08/02/2025 1:49 PM EDT) TSH W/REFLEX TO FT4 1.04 mIU/L 08/03/2025 6:41 AM EDT [employer] [facility] Blood Blood / Unknown 08/02/2025 1 :49 PM EDT 08/03/2025 4:47 AM EDT Mamina Sh[employer] [facility] - 08/03/2025 7:13 AM EDT FASTING:NO Reference Range . > or = 20 Years 0.40-4.50 . Ranges First trimester 0.26-2.66 Second trimester 0.55-2.73 Third trimester 0.43-2.91 [facility] INTERNET SECURITY SPECIALIST LAB - BLOOD DRAW Final Result Performing Organization Address [facility]/[employer] de Phone Number [employer] [address] [address], [place] [employer] [address] [address] * HEPATITIS B SURFACE AG, EIA WITH REFLEX CONFIRM Routine (08/02/2025 1:49 PM EDT) Pathologist [facility] HEPATITIS B SURFACE ANTIGEN NON-REACT JEFF NON-REACT JEFF 08/03/2025 6:44 AM EDT [employer] [facility] Blood Blood / Unknown 08/02/2025 1 :49 PM EDT 08/03/2025 4:47 AM EDT Narrative [facility] - 08/03/2025 7:13 AM EDT FASTING:NO . For additional information, please refer to http://education.Viamericas/faq/BUY277 (This link is being provided for informational/ educational purposes only.) . [employer] [facility] INTERNET SECURITY SPECIALIST LAB - BLOOD DRAW Final Result Performing Organization Address [facility]/[employer] de Phone Number [employer] [address] [address], [place] [employer] [address] [address] * HEPATITIS B SURF ANTIBODY HBSAB Routine (08/02/2025 1:49 PM EDT) Pathologist [facility] HEPATITIS B SURFACE ANTIBODY QL NON-REACT JEFF NON-REACT JEFF 08/03/2025 6:44 AM EDT [employer] [facility] Blood Blood / Unknown 08/02/2025 1 :49 PM EDT 08/03/2025 4:47 AM EDT Narrative [employer] - 08/03/2025 7:13 AM EDT FASTING:NO [facility] INTERNET SECURITY SPECIALIST LAB - BLOOD DRAW Final Result Performing Organization Address City/[facility]/ZIP Co de Phone Number [employer] [address] [address], [employer] [address] [address] * HEPATITIS B CORE ANTIBODY HBCAB IGM ANTIBODY Routine (08/02/2025 1:49 PM EDT) Pathologist [facility] HEPATITIS B CORE IGM ANTIBODY NON-REACT JEFF NON-REACT JEFF 08/03/2025 6:44 AM EDT [employer] [facility] Blood Blood / Unknown 08/02/2025 1 :49 PM EDT 08/03/2025 4:47 AM EDT Narrative [employer] [facility] - 08/03/2025 7:13 AM EDT FASTING:NO . For additional information, please refer to http://education.Viamericas/faq/HWP215 (This link is being provided for informational/ educational purposes only.) . us Michael Mitchell INTERNET SECURITY SPECIALIST LAB - BLOOD DRAW Final Result Performing Organization Address City/[facility]/[employer] de Phone Number [employer] [address] [address], [employer] [address] [address] * GONADOTROPIN CHORIONIC QUALITATIVE Routine (08/02/2025 1:49 PM EDT) Pathologist [facility] CHORIONIC GONADOTROPIN, QUALITATIVE NEGATIVE 08/03/2025 6:41 AM EDT [employer] [facility] 08/02/2025 1:49 PM EDT 08/03/2025 4:47 AM EDT Mamina Shkola [facility] - 08/03/2025 7:13 AM EDT FASTING:NO Reference Range Non-: Negative : Positive . us Michael Mitchell INTERNET SECURITY SPECIALIST LAB - BLOOD DRAW Final Result Performing Organization Address [facility]/[employer] de Phone Number [employer] [address] [address], [employer] [address] [address] * LIPID PANEL Routine (08/02/2025 1:49 PM EDT) [facility] CHOLESTEROL, TOTAL 161 <200 mg/dL 08/03/2025 7:37 AM EDT [employer] [facility] HDL CHOLESTEROL 64 > OR = 50 mg/dL 08/03/2025 7:37 AM EDT [employer] [facility] TRIGLYCERIDES 100 <150 mg/dL 08/03/2025 7:37 AM EDT [employer] [facility] LDL-CHOLESTEROL 78 mg/dL (calc) 08/03/2025 7:37 AM EDT [employer] [facility] CHOL/HDLC RATIO 2.5 <5.0 (calc) 08/03/2025 7:37 AM EDT [employer] [facility] NON-HDL CHOLESTEROL 97 <130 mg/dL (calc) 08/03/2025 7:37 AM EDT [employer] Blood Blood / Unknown 08/02/2025 1 :49 PM EDT 08/03/2025 5:20 AM EDT Narrative [employer] [facility] - 08/03/2025 7:38 AM EDT FASTING:NO Reference range: <100 . Desirable range <100 mg/dL for primary prevention; <70 mg/dL for patients with CHD or diabetic patients with > or = 2 CHD risk factors. . LDL-C is now calculated using the Sharron calculation, which is a validated novel method providing better accuracy than the Friedewald equation in the estimation of LDL-C. Antwan SS et al. RANDOLPH. 2013;310(19): 4663-8947 (http://education.Descubre.la/faq/JEJ527) For patients with diabetes plus 1 major ASCVD risk factor, treating to a non-HDL-C goal of <100 mg/dL (LDL-C of <70 mg/dL) is considered a therapeutic option. Michael Mitchell NP LAB - BLOOD DRAW Final Result [employer] [address] [place] [address], [employer] [address] [address] * (ABNORMAL) COMPREHENSIVE METABOLIC PANEL Routine (08/02/2025 1:49 PM EDT) GLUCOSE 291(H) 65 - 139 mg/dL 08/03/2025 7:37 AM EDT [employer] [facility] UREA NITROGEN (BUN) 10 7 - 25 mg/dL 08/03/2025 7:37 AM EDT [employer] [facility] CREATININE (blood) 0.62 0.50 - 0.96 mg/dL 08/03/2025 7:37 AM EDT [employer] [facility] EGFR 124 > OR = 60 mL/min/1. 73m2 08/03/2025 7:37 AM EDT [employer] [facility] BUN/CREATININE RATIO SEE NOTE: 6 - 22 (calc) 08/03/2025 7:37 AM [employer] [facility] SODIUM 138 135 - 146 mmol/L 08/03/2025 7:37 AM [employer] [facility] POTASSIUM 3.8 3.5 - 5.3 mmol/L 08/03/2025 7:37 AM [employer] [facility] CHLORIDE 102 98 - 110 mmol/L 08/03/2025 7:37 AM [employer] [facility] CARBON DIOXIDE 26 20 - 32 mmol/L 08/03/2025 7:37 AM [employer] [facility] CALCIUM 9.3 8.6 - 10.2 mg/dL 08/03/2025 7:37 AM [employer] [facility] PROTEIN, TOTAL 7.3 6.1 - 8.1 g/dL 08/03/2025 7:37 AM [employer] [facility] ALBUMIN 4.3 3.6 - 5.1 g/dL 08/03/2025 7:37 AM [employer] [facility] GLOBULIN 3.0 1.9 - 3.7 g/dL (calc) 08/03/2025 7:37 AM [employer] [facility] ALBUMIN/GLOBULI N RATIO 1.4 1.0 - 2.5 (calc) 08/03/2025 7:37 AM [employer] [facility] BILIRUBIN, TOTAL 0.3 0.2 - 1.2 mg/dL 08/03/2025 7:37 AM [employer] [facility] ALKALINE PHOSPHATASE 87 31 - 125 U/L 08/03/2025 7:37 AM [employer] [facility] AST 13 10 - 30 U/L 08/03/2025 7:37 AM [employer] [facility] ALT 11 6 - 29 U/L 08/03/2025 7:37 AM [employer] [facility] Blood Blood / Unknown 08/02/2025 1 :49 PM EDT 08/03/2025 5:20 AM EDT [facility] [employer] [facility] - 08/03/2025 7:38 AM EDT FASTING:NO . Non-fasting reference interval . Not Reported: BUN and Creatinine are within reference range. . us Michael Mitchell NP LAB - BLOOD DRAW Final Result [employer] [address] [place] [address], [employer] [facility] [address] [place] [address] from Last 3 Months Insurance [place] [facility] [employer] Care Teams Forming Department Supervisor Relationship Specialty Start Date End Date Michael Mitchell NP [address] [place] [address] PCP - General Family Medicine, INTERNET SECURITY SPECIALIST 08/02/25
--- OUTSIDE RECORDS SUMMARY | 2025-08-17 16:24 | XMS_ITS | Clinical Summary ---
Author Organization [employer] [facility] Address [address] [place] [address] Care Team Providers Care School Laboratory Technician Name Role Phone Unavailable Primary Care Provider Unavailabl e Encounters Date Type Department Care Team Description 06/21/2025 Population Health Risk Score [facility] Care [facility] (C3) Department [address] [facility] [facility] [address] [place] [address] Provider, Population Health Generic from [...]
--- OUTSIDE RECORDS SUMMARY | 2025-08-17 16:24 | XMS_ITS | Encounter Summary ---
Author Organization [facility] Address [address] [place] [address] Care Team Providers Care Visual Aid Expert Name Role Phone Michael Mitchell SIDEWALK INSPECTOR Primary Care Provider [phone] Encounter Details Date Type Department Care Team (Late st Contact Info) Description 08/04/2025 Results Follow-Up [facility] [address] [place] [address] Michael Mitchell NP [address] [place], [place] [id number] Social History Tobacco Use Types Packs/Day Years [...] documented as of this encounter Care Teams Visual Aid Expert Relationship Specialty Start Date End Date Michael Mitchell NP [address] [place] [address] PCP - General Family Medicine, SIDEWALK INSPECTOR 08/02/25 documented as of this encounter
[2025-08-17 16:49] LABS: Glucose, Whole Blood 187 mg/dL (60-115)
[2025-08-17 17:39] LABS: Hemoglobin A1C 264.0933 umol/L; Total Hemoglobin (HGBA1C) 3149.4375 umol/L
[2025-08-17 20:00] VITALS: RESP 20
[2025-08-17 21:43] LABS: Glucose, Whole Blood 263 mg/dL (60-115)
[2025-08-17 21:58] VITALS: BP 117/65
[2025-08-18] MEDS: Magnesium Hydrox/Alum Hydrox 30 ML ORAL.SUSP PO (06:11)
[2025-08-18 07:00] VITALS: BMI 26.2
[2025-08-18 07:40] VITALS: BP 113/70; PULSE 86; RESP 18; TEMP 36.8; O2SAT 98
[2025-08-18 07:52] LABS: Glucose, Whole Blood 226 mg/dL (60-115)
[2025-08-18 08:37] LABS: Bacterial Vaginosis PCR NEGATIVE (Negative); Candida Group PCR DETECTED (Not Detect); Candida glab krusei PCR NOT DETECTED (Not Detect); Trichomonas vaginalis PCR NOT DETECTED (Not Detect)
--- NOTE | 2025-08-18 08:48 | P.PNIM_ITS ---
Subjective Subjective Date of Service: 08/18/25 Interval History: Patient's A1c improved to 9.8. Her sugars remain elevated between 100 to 300s. Her metformin and glipizide were resumed. We will start Trulicity weekly x4 weeks. Vaginal culture positive for yeast and Gardnerella. Patient will need follow up with her primary care upon discharge. She is pleasant, ambulating on unit. Denies any shortness of breath, dizziness lightheadedness or any other concerning symptoms. Review of Systems Denies any shortness of breath, chest pain, dizziness, lightheadedness, abdominal pain or discomfort, nausea vomiting or diarrhea Physical Exam 2 Vital Signs: Vital Signs: Last Vital Signs Temp 98.3 F 08/18/25 07:40 Pulse 86 08/18/25 07:40 Resp 18 08/18/25 07:40 BP 113/70 08/18/25 07:40 Pulse Ox 98 08/18/25 07:40 O2 Del Method Room Air 08/18/25 07:40 BMI result Body Mass Index 26.2 CONST: Alert and oriented, in NAD. Well nourished HEENT: Normocephalic, atraumatic, MMM, Eyes clear, Neck supple RESP: Lungs clear, RRR even and regular HEART:,RRR, S1, S2. No murmur, no edema GI:Abdomen Soft NT, ND. + BS times four :Deferred SKIN: Warm dry and intact, no visible lesions or rashes NEURO:CN II-XII Intact bilaterally, Sensation intact. Speech clear PSYCH: Pleasant, appears sedate Objective Data Active Medications Acamprosate (Acamprosate Calcium 333 Mg Tablet.) 333 mg PO TID [facility] Last Admin: 08/18/25 08:20 Dose: 333 mg Documented By: MARIAELENA Acetaminophen (Acetaminophen 325 Mg Tablet) 650 mg PO Q6H PRN PRN Reason: Headache/Pain, Scale 1-7 Al Hydroxide/Mg Hydroxide (Magnesium Hydrox/Alum Hydrox 30 Ml Oral.Susp) 30 ml PO Q6H PRN PRN Reason: Heartburn/Nausea Last Admin: 08/18/25 06:11 Dose: 30 ml Documented By: SANTHOSH Chlorpromazine HCl (Chlorpromazine Hcl 25 Mg Tablet) 25 mg PO Q4H PRN PRN Reason: agitation Last Admin: 08/17/25 14:47 Dose: 25 mg Documented By: ADELE Clonidine HCl (Clonidine Hcl 0.1 Mg Tablet) 0.1 mg PO TID [facility]; Protocol Last Admin: 08/18/25 08:21 Dose: 0.1 mg Documented By: MARIAELENA Dextrose (Dextrose 50 % 25 Gm/50 Ml Syringe) 25 gm IVPUSH Q15M PRN; Protocol PRN Reason: per Hypoglycemia Standing Ord. Gabapentin (Gabapentin 400 Mg Capsule) 800 mg PO TID [facility] Last Admin: 08/18/25 08:20 Dose: 800 mg Documented By: MARIAELENA Glipizide (Glipizide Xl 2.5 Mg Tab.Er.24) 2.5 mg PO DAILY [facility] Last Admin: 08/18/25 08:20 Dose: 2.5 mg Documented By: MARIAELENA Glucose (Glucose Gel 15 Gm Gel..Gram.) 15 gm PO Q15M PRN; Protocol PRN Reason: per Hypoglycemia Standing Ord. Hydroxyzine HCl (Hydroxyzine Hcl 25 Mg Tablet) 25 mg PO Q6H PRN PRN Reason: mild anxiety Last Admin: 08/17/25 22:03 Dose: 25 mg Documented By: IMELDA Insulin Human Lispro (Insulin Lispro 100 Unit/Ml 3 Ml Vial) 0 unit SUBCUT QIDAS [facility]; Protocol Last Admin: 08/18/25 08:19 Dose: 4 unit Documented By: MARIAELENA Magnesium Hydroxide (Milk Of Magnesia 30 Ml Oral.Susp) 30 ml PO DAILY PRN PRN Reason: Constipation Meclizine HCl (Meclizine Hcl 25 Mg Tablet) 25 mg PO BID PRN PRN Reason: Nausea Melatonin (Melatonin 3 Mg Tablet) 6 mg PO BEDTIME PRN PRN Reason: Insomnia Last Admin: 08/17/25 22:03 Dose: 6 mg Documented By: IMELDA Metformin HCl (Metformin Hcl Er 750 Mg Tab.Er.24h) 750 mg PO BEDTIME [facility] Last Admin: 08/17/25 21:56 Dose: 750 mg Documented By: IMELDA Nicotine Polacrilex (Nicotine Polacrilex 2 Mg Gum) 4 mg BUCCAL Q2H PRN PRN Reason: Nicotine Cravings Last Admin: 08/17/25 14:48 Dose: 4 mg Documented By: ADELE Omeprazole (Omeprazole 40 Mg Capsule.) 40 mg PO DAILY@0630 [facility] Last Admin: 08/18/25 06:07 Dose: 40 mg Documented By: SANTHOSH Ondansetron HCl (Ondansetron Odt 8 Mg Tab.Rapdis) 8 mg TRANSLINGU Q8H PRN PRN Reason: Nausea and Vomiting Oxcarbazepine (Oxcarbazepine 300 Mg Tablet) 600 mg PO BID [facility] Last Admin: 08/18/25 08:21 Dose: 600 mg Documented By: MARIAELENA Risperidone (Risperidone 1 Mg Tablet) 1 mg PO BID [facility] Last Admin: 08/18/25 08:21 Dose: 1 mg Documented By: MARIAELENA Sucralfate (Sucralfate 1 Gm Tablet) [facility] Last Admin: 08/18/25 08:20 Dose: 1 gm Documented By: MARIAELENA Trazodone HCl (Trazodone Hcl 50 Mg Tablet) 50 mg PO BEDTIME MRX1 PRN PRN Reason: Insomnia Last Admin: 08/17/25 22:03 Dose: 50 mg Documented By: ALANNAUL Labs 08/18/25 08:50 Labs: Laboratory Results - last 24 hr 08/17/25 08/17/25 08/17/25 16:39 17:09 21:40 POC Glucose 187 H 263 H Estimat Average Glucose 235 Hemoglobin A1c % 9.8 H T. vaginalis (PCR) Bact vaginosis (PCR) C. krusei/glabrata (PCR) Crystal group (PCR) 08/18/25 08/18/25 06:57 07:42 POC Glucose 226 H Estimat Average Glucose Hemoglobin A1c % T. vaginalis (PCR) NOT DETECTED Bact vaginosis (PCR) NEGATIVE C. krusei/glabrata (PCR) NOT DETECTED Crystal group (PCR) DETECTED A Assessment and Plan (1) Diabetes: Status: Acute Plan 29-year-old female with a past medical history of type 2 diabetes, PTSD, polysubstance use disorder alcohol use disorder, depression, bipolar disorder, anxiety, and suicidal ideations was initially admitted to the hospital for concerns of alcohol withdrawal, monitored on tele with no events, eventually stabilized and now she is transferred to inpatient psych for further care. Alcohol use disorder/Depression/Bipolar DO/Anxiety/SI Initially admitted for withdrawal, now admitted to inpatient psych for further care. Treatment per psych team. Type 2 DM Recent Hgb A1C is 9.8, improved from 13.1 in May Continue metformin and glipizide Diabetic diet. We will add Trulicity 0.75 mgs weekly-Will need outpatient follow up for titration up if patient tolerates. Will need close follow up upon discharge including diabetes education, PCP and possible endocrinology follow up. + BV/Vaginal yeast infection. + crystal and Gardnerella Will treat with Diflucan times one and Metrogel for 5 days negative. Thank you for allowing me to participate in the care of this patient. Will follow as needed, please notify medical provider with any changes in condition or concerns. Quality Stroke Does the patient have a stroke diagnosis?: No VTE Prior VTE?: No VTE Risk Level:: Medical - low VTE Device Contraindication: Treatment Not Indicated VTE Drug Contraindication: Treatment Not Indicated
[2025-08-18 09:22] LABS: Creatinine Clr Calc Pharmacy 134.0; Estimated Glomerular Filt Rate > 60
[2025-08-18 11:03] LABS: Appearance Urine Clear; Glucose Urine UA Negative (Negative); PH 6.5 (5.0-9.0); Specific Gravity - Urine 1.025 (1.005-1.025); UMIC TRIGGER UA YES
[2025-08-18 11:06] LABS: UPreg QC Valid YES
[2025-08-18 12:00] LABS: Glucose, Whole Blood 147 mg/dL (60-115)
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
[2025-08-18 14:18] VITALS: BP 128/78
[2025-08-18 17:10] LABS: Glucose, Whole Blood 206 mg/dL (60-115)
[2025-08-18] MEDS: TRULICITY 0.75 MG/0.5 ML 1 EACH SUBCUT (17:46)
[2025-08-18 21:24] LABS: Glucose, Whole Blood 156 mg/dL (60-115)
[2025-08-18 21:30] VITALS: BP 109/68; PULSE 72; RESP 20
[2025-08-18 21:40] VITALS: BP 109/68
[2025-08-19 07:34] LABS: Glucose, Whole Blood 150 mg/dL (60-115)
[2025-08-19 07:35] VITALS: BP 114/60; PULSE 67; RESP 18; TEMP 36.4; O2SAT 100
[2025-08-19] MEDS: Magnesium Hydrox/Alum Hydrox 30 ML ORAL.SUSP PO (08:26)
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
== END 2025-08-19 11:40 | disposition home or self-care (01) | DRG 755 ==
PROVIDERS: Nurse Practitioner Family; Admitting Provider Psychiatry & Neurology Psychiatry; Visit Provider Psychiatry & Neurology Psychiatry
DX: F43.10 Post-traumatic stress disorder, unspecified (principal); R45.851 Suicidal ideations; G40.909 Epilepsy, unspecified, not intractable, without status epilepticus; E11.9 Type 2 diabetes mellitus without complications; B37.31 Acute candidiasis of vulva and vagina; B96.89 Other specified bacterial agents as the cause of diseases classified elsewhere; F10.90 Alcohol use, unspecified, uncomplicated; F19.90 Other psychoactive substance use, unspecified, uncomplicated; N76.0 Acute vaginitis; Z91.52 Personal history of nonsuicidal self-harm; Z79.84 Long term (current) use of oral hypoglycemic drugs; Z79.85 Long-term (current) use of injectable non-insulin antidiabetic drugs; Z79.899 Other long term (current) drug therapy
CPT/HCPCS: 36415; 81001; 81003; 81025; 81515; 82565; 82947; 83036

== ENCOUNTER → 2025-08-17 12:57 | Outpatient (BNV) | payer OTHER, SELFPAY | PROVIDERS: Admitting Provider Psychiatry & Neurology Psychiatry; Visit Provider Psychiatry & Neurology Psychiatry | DX: F43.11 Post-traumatic stress disorder, acute (principal); F10.90 Alcohol use, unspecified, uncomplicated; E11.9 Type 2 diabetes mellitus without complications | CPT/HCPCS: 99232; 99233 ==

== ENCOUNTER → 2025-08-17 12:57 | Outpatient (BNV) | payer MEDICAID, SELFPAY | PROVIDERS: Admitting Provider Psychiatry & Neurology Psychiatry; Visit Provider Nurse Practitioner Family | DX: E11.9 Type 2 diabetes mellitus without complications (principal) | CPT/HCPCS: 99221; 99232 ==

== ENCOUNTER 2025-09-15 12:33 | Inpatient (IN) | payer MEDICAID, SELFPAY ==
[2025-09-15] VITALS (7 sets, daily range): BP systolic 121–143; BP diastolic 73–99; PULSE 90–112; RESP 16–18; TEMP 36.7–37.2; O2SAT 98–100; BMI 23.8
--- NOTE | ~2025-09-15 | US_ITS ---
CLINICAL HISTORY: RUQ, rule out cholelithiasis and cholecystitis Ultrasound gallbladder Comparison: 09/15/2025 Findings The gallbladder is distended and contains multiple gallstones. The gallbladder wall measures up to 3 mm in thickness. There is no pericholecystic fluid. The sonographic Alvarenga's sign was documented positive. The common bile duct measures 6 mm. Impression: 1. Cholelithiasis with associated findings suggesting possible acute cholecystitis. 2. Mildly dilated common bile duct. This document has been electronically signed by: Petrona Cotton MD on 09/17/2025 13:49:42
--- NOTE | ~2025-09-15 | CT_ITS ---
CLINICAL HISTORY: leukocytosis, with unexplained lactic acidosis CT chest with contrast Comparison: CT/SR - CT ABDOMEN PELVIS W IV CON - 08/13/25 20:22 EDT Findings: The heart size is normal. The visualized thyroid and mediastinum are unremarkable. The lungs are clear. No acute fractures. IMPRESSION: 1. Unremarkable chest CT. This document has been electronically signed by: Cha Griggs MD on 09/16/2025 00:30:39
--- NOTE | ~2025-09-15 | CT_ITS ---
CLINICAL HISTORY: leukocytosis, unexplained lactic acidosis CT abdomen and pelvis with contrast Comparison: CT/SR - CT ABDOMEN PELVIS W IV CON - 08/13/25 20:22 EDT Findings: The lung bases are clear. Hepatic steatosis. Cholelithiasis. Mild gallbladder wall thickening. Sequela of chronic pancreatitis with parenchymal atrophy diffuse calcifications throughout pancreas. Spleen and adrenal glands are within normal limits. No hydronephrosis. Symmetric contrast enhancement of the kidneys. No bowel obstruction, pneumatosis or pneumoperitoneum. Normal appendix. Corpus luteum in the right ovary. Uterus and urinary bladder within normal limits. Bone island in the left proximal femur. No acute fracture. IMPRESSION: Cholelithiasis with mild gallbladder wall thickening. Correlate with LFTs and consider right upper quadrant ultrasound for further evaluation. This document has been electronically signed by: Cha Griggs MD on 09/16/2025 00:36:07
--- NOTE | 2025-09-15 12:40 | ED_ITS ---
HPI - Alcohol General Chief Complaint: ETOH/Substance Use Stated Complaint: ETOH Time Seen by Provider: 09/15/25 12:40 Source: patient, EMS, RN notes reviewed and old records reviewed Mode of arrival: EMS Limitations: no limitations History of Present Illness ED Provider: Mervin Valdes PA-C HPI narrative: 29 yo female with history of bipolar disorder, PTSD, DM, ETOH use disorder with history of withdrawal seizure in the past (admitted here 08/14-08/18 on phenobarb), who presents to the ER for evaluation of alcohol intoxication. She states she wants to get help and stopped drinking. She reports drinking 5 nips today. She has been drinking large amounts the last 2 days, her father reports he has not been home but he comes home to find her intoxicated. States she has not taken her medications in the last 3 days. She reports chronic abdominal pain in her pancreas, she has not been eating or drinking (anything but alcohol) due to the pain. MD complaint: alcohol intoxication and alcohol dependence Last drink: Hours (ago) Amount of alcohol consumed: 5 nips Chronic alcohol use: Yes Previous visits for alcohol intoxication: Yes Recent trauma: No Associated symptoms: nausea, vomiting, abdominal pain and depression Treatments prior to arrival: none Related Data Previous Rx's ?Medication ?Instructions ?Recorded nicotine (polacrilex) 4 mg gum 4 mg buccal Q2H PRN siena otine 06/30/25 cravings 30 days #100 ea dulaglutide 0.75 mg/0.5 mL 0.75 mg (0.5 mL) subcut QWE EK Type 08/18/25 subcutaneous pen injector 2 DM 4 weeks #2 mL (Trulicity) acamprosate 333 mg tablet,delayed 333 mg PO TID 30 day s #90 tabs 08/19/25 release clonidine HCl 0.1 mg tablet 0.1 mg PO TID 30 days #90 tabs 08/19/25 gabapentin 800 mg tablet 800 mg PO TID 30 days #90 ta bs 08/19/25 glipizide 2.5 mg tablet, extended 2.5 mg PO DAILY 30 d ays #30 tabs 08/19/25 release 24 hr hydroxyzine pamoate 100 mg capsule 100 mg PO QID PRN a nxiety 30 days 08/19/25 #120 caps melatonin 3 mg tablet 6 mg (2 x 3 mg) PO BEDTIME P RN 08/19/25 Insomnia 30 days #60 tabs metformin 750 mg tablet,extended 750 mg PO BEDTIME 30 days #30 tabs 08/19/25 release 24 hr metronidazole 0.75 % (37.5 mg/5 5 g vaginal DAILY #0 g joanne 08/19/25 gram) vaginal gel omeprazole 40 mg capsule,delayed 40 mg PO DAILY@0630 3 0 days #30 08/19/25 release caps oxcarbazepine 600 mg tablet 600 mg PO BID 30 days #60 tabs 08/19/25 risperidone 1 mg tablet 1 mg PO BID 30 days #60 tabs 08/19/25 sucralfate 1 gram tablet 1 g PO BIDAC 30 days #60 tab s 08/19/25 trazodone 100 mg tablet 100 mg PO BEDTIME PRN Insomn ia 30 08/19/25 days #30 tabs Allergies Allergy/AdvReac Type Severity Reaction Status Date / Time SEAFOOD Allergy Unknown UNK Uncoded 09/15/25 12:56 Review of Systems 2 Review of Systems: Yes all other systems are reviewed and are negative [facility] Past Medical History Medical History PTSD (post-traumatic stress disorder) Polysubstance use disorder Alcohol use disorder Bipolar disorder Social History Social History Household Members: Family Household Members Other:: 3 Housing: House Do you presently have visiting nurse or other home services: No Alcohol intake: current Alcohol intake frequency: 3 or more drinks per day Alcohol type: hard liquor Comment: sitter Patient Tobacco Use Status: Never used Tobacco Tobacco use type: Cigarette Cigarettes Per Day: 7 Smoked in Last 30 Days: Yes e-Cigarette/Vaping Use: Currently Using Second Hand Smoke Exposure: No Use of substances other than those prescribed or required for medical reasons: No Substance Use Type: Opiates and Other Advance Directives: No Advance Directives Information Provided: Yes Do you have a plan to hurt others: No Plan service: No Sexual orientation: Straight/Heterosexual Physical Exam ED Exam Exam: Appearance: Alert. Oriented X3. No acute distress. Head: normocephalic, atraumatic. Eyes: Pupils equal, round and reactive to light. ENT: Poor dentition Neck: Normal inspection. Neck supple. CVS: Tachycardic, heart rate low 1 100s, regular rhythm Pulses normal. Respiratory: No respiratory distress. Breath sounds normal. Abdomen: Soft with mild epigastric tenderness, no rebound or guarding. +BS x4 Skin: Skin warm and dry. Normal skin color. Normal skin turgor. No rashes. Extremities: No lower extremity edema. No joint swelling. Left forearm with well-healed longitudinal scars consistent with self-harm Neuro/psych: Oriented X 3. Moves all extremities spontaneously, follows simple commands intermittently CN II-XII intact. Withdrawn, not cooperative with interview Vital Signs: Vital Signs - 24 hr 09/15/25 12:52 09/15/25 12:57 09/15/25 16:29 Temperature 98.9 F Pulse Rate 108 H 90 Respiratory Rate 16 16 Blood Pressure 121/75 130/85 Pulse Oximetry 99 100 Oxygen Delivery Method Room Air Room Air 09/15/25 18:46 09/15/25 20:58 09/15/25 23:07 Temperature 98.0 F 98.1 F 98.2 F Pulse Rate 92 100 92 Respiratory Rate 18 18 18 Blood Pressure 126/73 130/99 H 143/89 H Pulse Oximetry 99 100 98 Oxygen Delivery Method Room Air Room Air BMI result Body Mass Index 23.8 Course Reevaluation(s) Reevaluation #1: Physician observation started at 1658. Patient placed in physician observation because medically needs repeat lactic acid, time for sober re-evaluation. At the time observation was started patient's vital signs were stable. Patient is alert and oriented. Neuro exam is non-focal. CV: RRR and lungs are clear. Will continue to monitor. signed out to Marga LUNA who will f/u lactic acid and determine dispo Time: 16:58 Reevaluation #2: I received sign-out of this patient from my colleague JEREMY Valdes. In summary, patient is a 29-year-old female with medical history of bipolar disorder, PTSD, T2DM, ETOH use disorder with history of withdrawal seizures in the past recently admitted to [facility] [place] [place] 08/14-08/18 on phenobarbital presents to ED due to alcohol intoxication. Patients father called EMS due to concerns of increased alcohol consumption and decreased po intake over several days. Patient has not taken her medication in 3 days with decreased PO intake. On sign out labs reveal a leukocytosis of 11.2, low bicarb of 16, anion gap of 21, LFTs WNL, serum glucose of 247. VBG shows compensated respiratory alkalosis with a pH of 7.46, HC03 of 18. Lactic acid was elevated at 5.7. Patient received 2 L of fluid, with a repeat CMP, VBG, and lactic acid. These lab values are worsening with a lactic acid of 6.4, AST of 32. VBG now with a pH is 7.59, HC03 of 14. I obtain CT chest and abdomen and pelvis for further evaluation of lactic acidosis as patient has not been taking metformin for 3 days and lactic acid should not be worsening to this extent from metformin or starvation acidosis. CT chest was negative CT abdomen pelvis reveals cholelithiasis with mild gallbladder wall thickening, and is recommending right upper quadrant ultrasound for further evaluation. During this course patient with CIWA score of 12, 10mg/kg phenobarbitol initiated with 5mg IV valium x3 given for alcohol withdrawal symptoms. I spoke with Hospitalist Dr. Wilfredo Banks for admission to medicine for lactic acidosis and possible surgical consult, who agreed to admission. Time: 01:38 Medical Decision Making Medical Decision Making MDM Narrative: 29-year-old female well known to this ER who has a longstanding history of alcohol use disorder, history of alcohol withdrawal and seizures in the past, history of diabetes who has not been taking her medications for the last 3 days per her father, presenting to the ER for evaluation of alcohol intoxication, seeking detox. Patient states she wants to stop drinking. She has a visitation with her children on Friday and wants to be sober. Upon review of psychiatric documentation from August, the patient's father has taken her to [facility] 52 times and [facility] over 20 times for treatment. Lab workup reveals low bicarbonate of 16, with anion gap of 21. Her LFTs are normal. Glucose is 247. Given the concern for acidosis additional lab workup was ordered including a lactic acid, beta hydroxybutyrate and a VBG. Her VBG is well compensated with respiratory alkalosis. Her lactic acid came back elevated at 5.7. This is likely due to starvation and/or metformin which she is on at home. There is no evidence of sepsis or severe sepsis at this time. No evidence of any infection at all at this time. An IV line was placed w/ ultrasound an for IV fluids however she pulled it out. She is tolerating oral fluids and refusing an additional PIV be placed. she is asking several staff members for rides home. 1701 - PIV placed by RN. IVF infusing. repeat lactic pending. PO ativan ordered Differential Diagnosis Differential Diagnoses: The differential diagnosis associated with the presentation includes Alcohol intoxication, euglycemic DKA, metabolic acidosis due to lactic acidosis & starvation ketosis, lactic acidosis due to metformin Admission/Observation Consideration of admission/observation: Escalation of care including admission/observation considered Lab Data [facility] Lab Attestation statement: I reviewed the patient's lab results. Mild leukocytosis, low bicarb, well compensated with alkalotic pH and low pCO2, LFTs and lipase are normal 09/15/25 13:13 09/15/25 22:12 Labs: Lab Results 09/15/25 09/15/25 09/15/25 Range/Units 12:53 13:13 15:09 WBC 11.2 H (4.8-10.8) X10*3/uL RBC 4.76 (4.20-5.50) X10*6/uL Hgb 14.3 (12.0-16.0) g/dl Hct 41.7 (37.0-47.0) % MCV 87.6 (80.0-98.0) fL MCH 30.0 (27.0-33.0) pg MCHC 34.3 (31.0-35.0) g/dl RDW 12.2 (11.0-16.0) % Plt Count 370 (160-400) X10*3/uL MPV 8.9 L (9.4-12.3) fL Immature Gran % (Auto) 0.2 (0.0-0.4) % Neut % (Auto) 53.6 (45-73) % Lymph % (Auto) 40.9 H (20-40) % [place] % (Auto) 2.5 (2-11) % Eos % (Auto) 2.1 (0-4) % Baso % (Auto) 0.7 (0-2) % Lymph # (Auto) 4.6 (1.2-4.9) X10*3/uL [place] # (Auto) 0.3 (0.1-1.2) X10*3/uL Eos # (Auto) 0.2 (0.0-0.4) X10*3/uL Baso # (Auto) 0.1 (0.0-0.2) X10*3/uL Abs Immat Gran (auto) 0.02 (0.00-0.03) X10*3/uL Absolute Neuts (auto) 6.0 (2.0-8.3) x10*3/uL Absolute Nucleated RBC 0.000 (0.0-0.012) X10*3/uL Nucleated RBC % (auto) 0.0 (0.0-0.2) /100WBC VBG pH (7.32-7.43) VBG pCO2 mmHg VBG pO2 mmHg VBG HCO3 (22-26) mmol/L VBG O2 Saturation % VBG Base Excess mmol/L Sodium 140 (135-145) mmol/L Potassium 3.6 (3.3-5.1) mmol/L Chloride 107 (96-108) mmol/L Carbon Dioxide 16 L (22-29) mmol/L Anion Gap 21 H (12-20) BUN 6 L (9-16) mg/dL Creatinine 0.60 (0.5-1.4) mg/dL Estim Creat Clear Calc 119.4 Estimated GFR > 60 POC Glucose 246 H (60-115) mg/dL Random Glucose 247 H (60-115) mg/dL Lactic Acid 5.7 H* (0.5-2.0) mmol/L Lactic Acid F/U @ 2Hr (0.5-2.0) mmol/L Calcium 8.9 D (8.4-10.2) mg/dL Magnesium 2.2 (1.6-2.6) mg/dL Total Bilirubin 0.2 (0.0-1.0) mg/dL Direct Bilirubin < 0.2 (0.0-0.5) mg/dL AST 29 (5-31) U/L ALT 28 (0-31) U/L Alkaline Phosphatase 103 (39-117) U/L Total Protein 7.7 (6.5-8.0) g/dL Albumin 4.5 (3.5-5.0) g/dL Lipase 8 (8-78) U/L Beta-Hydroxybutyrate 0.11 (0.02-0.27) mmol/L Urine Color Urine Appearance Urine pH (5.0-9.0) Ur Specific [place] (1.005-1.025) Urine Protein (Neg-Trace) mg/dL Urine Glucose (UA) (Negative) mg/dL Urine Ketones (Negative) mg/dL Urine Blood (Negative) Urine Nitrite (Negative) Ur Leukocyte Esterase (Negative) Urine RBC (0-2) /HPF Urine WBC (0-5) /HPF Ur Squamous Epith Cells (0-2) /HPF Urine Bacteria (None Seen) Hyaline Casts (0-2) /LPF Urine Opiates Screen (Not Detect) Ur Buprenorphine Scrn (Not Detect) ng/mL Ur Oxycodone Screen (Not Detect) ng/mL Urine Methadone Screen (Not Detect) ng/mL Urine Fentanyl Screen (Not Detect) Ur Barbiturates Screen (Not Detect) Ur Phencyclidine Scrn (Not Detect) Ur Amphetamines Screen (Not Detect) U Benzodiazepines Scrn (Not Detect) Urine Cocaine Screen (Not Detect) U Marijuana (THC) Screen (Not Detect) Ethyl Alcohol 380 H* mg/dL 09/15/25 09/15/25 09/15/25 Range/Units 15:15 17:35 19:51 WBC (4.8-10.8) X10*3/uL RBC (4.20-5.50) X10*6/uL Hgb (12.0-16.0) g/dl Hct (37.0-47.0) % MCV (80.0-98.0) fL MCH (27.0-33.0) pg MCHC (31.0-35.0) g/dl RDW (11.0-16.0) % Plt Count (160-400) X10*3/uL MPV (9.4-12.3) fL Immature Gran % (Auto) (0.0-0.4) % Neut % (Auto) (45-73) % Lymph % (Auto) (20-40) % [place] % (Auto) (2-11) % Eos % (Auto) (0-4) % Baso % (Auto) (0-2) % Lymph # (Auto) (1.2-4.9) X10*3/uL [place] # (Auto) (0.1-1.2) X10*3/uL Eos # (Auto) (0.0-0.4) X10*3/uL Baso # (Auto) (0.0-0.2) X10*3/uL Abs Immat Gran (auto) (0.00-0.03) X10*3/uL Absolute Neuts (auto) (2.0-8.3) x10*3/uL Absolute Nucleated RBC (0.0-0.012) X10*3/uL Nucleated RBC % (auto) (0.0-0.2) /100WBC VBG pH 7.46 H (7.32-7.43) VBG pCO2 26 mmHg VBG pO2 87 mmHg VBG HCO3 18 L (22-26) mmol/L VBG O2 Saturation 97.0 % VBG Base Excess -3.1 mmol/L Sodium (135-145) mmol/L Potassium (3.3-5.1) mmol/L Chloride (96-108) mmol/L Carbon Dioxide (22-29) mmol/L Anion Gap (12-20) BUN (9-16) mg/dL Creatinine (0.5-1.4) mg/dL Estim Creat Clear Calc Estimated GFR POC Glucose (60-115) mg/dL Random Glucose (60-115) mg/dL Lactic Acid 6.0 H* (0.5-2.0) mmol/L Lactic Acid F/U @ 2Hr 5.9 H* (0.5-2.0) mmol/L Calcium (8.4-10.2) mg/dL Magnesium (1.6-2.6) mg/dL Total Bilirubin (0.0-1.0) mg/dL Direct Bilirubin (0.0-0.5) mg/dL AST (5-31) U/L ALT (0-31) U/L Alkaline Phosphatase (39-117) U/L Total Protein (6.5-8.0) g/dL Albumin (3.5-5.0) g/dL Lipase (8-78) U/L Beta-Hydroxybutyrate (0.02-0.27) mmol/L Urine Color Urine Appearance Urine pH (5.0-9.0) Ur Specific [place] (1.005-1.025) Urine Protein (Neg-Trace) mg/dL Urine Glucose (UA) (Negative) mg/dL Urine Ketones (Negative) mg/dL Urine Blood (Negative) Urine Nitrite (Negative) Ur Leukocyte Esterase (Negative) Urine RBC (0-2) /HPF Urine WBC (0-5) /HPF Ur Squamous Epith Cells (0-2) /HPF Urine Bacteria (None Seen) Hyaline Casts (0-2) /LPF Urine Opiates Screen (Not Detect) Ur Buprenorphine Scrn (Not Detect) ng/mL Ur Oxycodone Screen (Not Detect) ng/mL Urine Methadone Screen (Not Detect) ng/mL Urine Fentanyl Screen (Not Detect) Ur Barbiturates Screen (Not Detect) Ur Phencyclidine Scrn (Not Detect) Ur Amphetamines Screen (Not Detect) U Benzodiazepines Scrn (Not Detect) Urine Cocaine Screen (Not Detect) U Marijuana (THC) Screen (Not Detect) Ethyl Alcohol mg/dL 09/15/25 09/15/25 Range/Units 22:12 22:21 WBC (4.8-10.8) X10*3/uL RBC (4.20-5.50) X10*6/uL Hgb (12.0-16.0) g/dl Hct (37.0-47.0) % MCV (80.0-98.0) fL MCH (27.0-33.0) pg MCHC (31.0-35.0) g/dl RDW (11.0-16.0) % Plt Count (160-400) X10*3/uL MPV (9.4-12.3) fL Immature Gran % (Auto) (0.0-0.4) % Neut % (Auto) (45-73) % Lymph % (Auto) (20-40) % [place] % (Auto) (2-11) % Eos % (Auto) (0-4) % Baso % (Auto) (0-2) % Lymph # (Auto) (1.2-4.9) X10*3/uL [place] # (Auto) (0.1-1.2) X10*3/uL Eos # (Auto) (0.0-0.4) X10*3/uL Baso # (Auto) (0.0-0.2) X10*3/uL Abs Immat Gran (auto) (0.00-0.03) X10*3/uL Absolute Neuts (auto) (2.0-8.3) x10*3/uL Absolute Nucleated RBC (0.0-0.012) X10*3/uL Nucleated RBC % (auto) (0.0-0.2) /100WBC VBG pH 7.59 H (7.32-7.43) VBG pCO2 14 mmHg VBG pO2 168 mmHg VBG HCO3 14 L (22-26) mmol/L VBG O2 Saturation 99.0 % VBG Base Excess -3.8 mmol/L Sodium 137 (135-145) mmol/L Potassium 4.0 (3.3-5.1) mmol/L Chloride 106 (96-108) mmol/L Carbon Dioxide 15 L (22-29) mmol/L Anion Gap 20 (12-20) BUN 7 L (9-16) mg/dL Creatinine 0.59 (0.5-1.4) mg/dL Estim Creat Clear Calc 121.5 Estimated GFR > 60 POC Glucose (60-115) mg/dL Random Glucose 168 H (60-115) mg/dL Lactic Acid (0.5-2.0) mmol/L Lactic Acid F/U @ 2Hr 6.4 H* (0.5-2.0) mmol/L Calcium 8.6 (8.4-10.2) mg/dL Magnesium (1.6-2.6) mg/dL Total Bilirubin 0.3 (0.0-1.0) mg/dL Direct Bilirubin (0.0-0.5) mg/dL AST 32 H (5-31) U/L ALT 24 (0-31) U/L Alkaline Phosphatase 100 (39-117) U/L Total Protein 7.1 (6.5-8.0) g/dL Albumin 4.1 (3.5-5.0) g/dL Lipase (8-78) U/L Beta-Hydroxybutyrate (0.02-0.27) mmol/L Urine Color Yellow Urine Appearance Clear Urine pH 5.5 (5.0-9.0) Ur Specific [place] 1.020 (1.005-1.025) Urine Protein Trace (Neg-Trace) mg/dL Urine Glucose (UA) Negative (Negative) mg/dL Urine Ketones 15 (Negative) mg/dL Urine Blood Negative (Negative) Urine Nitrite Negative (Negative) Ur Leukocyte Esterase Trace H (Negative) Urine RBC 0-2 (0-2) /HPF Urine WBC 6-10 (0-5) /HPF Ur Squamous Epith Cells 11-20 (0-2) /HPF Urine Bacteria 1+ (None Seen) Hyaline Casts 6-10 (0-2) /LPF Urine Opiates Screen Not Detected (Not Detect) Ur Buprenorphine Scrn Not Detected (Not Detect) ng/mL Ur Oxycodone Screen Not Detected (Not Detect) ng/mL Urine Methadone Screen Not Detected (Not Detect) ng/mL Urine Fentanyl Screen Not Detected (Not Detect) Ur Barbiturates Screen POSITIVE H (Not Detect) Ur Phencyclidine Scrn POSITIVE H (Not Detect) Ur Amphetamines Screen Not Detected (Not Detect) U Benzodiazepines Scrn POSITIVE H (Not Detect) Urine Cocaine Screen Not Detected (Not Detect) U Marijuana (THC) Screen Not Detected (Not Detect) Ethyl Alcohol mg/dL ABG Data Attestation ABG: I personally reviewed and interpreted this ABG as follows: Interpretation: respiratory alkalosis compensating for metabolic acidosis Independent Historian Clinical information obtained from an independent historian. History obtained from or confirmed by: Parent and EMS External Record Review External record reviewed: Inpatient record, Outpatient record, Prior outpatient labs and Prior outpatient radiology Tests considered The following testing was considered but not selected: CT scan of the abdomen was considered however her pain is chronic in her abdomen exam is benign Prescription Management I considered prescription management with: Pain Medication and Antibiotic Chronic Conditions Patient?s care impacted by: Diabetes and Other (Alcohol use disorder) Social Determinants Patient?s care significantly limited by Social Determinants of Health including: Problems related to primary support group and Other Social Determinant of Health Medications Administered Discontinued Medications Generic Name Dose Route Start Last Admin Trade Name Freq PRN Reason Stop Dose Admin Al Hydroxide/Mg Hydroxide 30 ml 09/15/25 13:43 09/15/25 14:02 Magnesium Hydrox/Alum Hydrox 30 Ml Oral.Susp PO 09/15/25 13:44 30 ml ONCE ONE Administration Diazepam 5 mg 09/15/25 19:03 09/15/25 19:10 Diazepam 10 Mg/2 Ml Cartridge IVPUSH 09/15/25 19:04 5 mg STAT STA Administration Diazepam 5 mg 09/15/25 20:41 09/15/25 20:59 Diazepam 10 Mg/2 Ml Cartridge IVPUSH 09/15/25 20:42 5 mg STAT STA Administration Diazepam 5 mg 09/15/25 22:54 09/15/25 23:08 Diazepam 10 Mg/2 Ml Cartridge IVPUSH 09/15/25 22:55 5 mg STAT STA Administration Lactated Ringer's 1,000 mls @ 999 mls/hr 09/15/25 14:00 09/15/25 15:30 Lr IV 09/15/25 15:00 Infused .Q1H1M KATHY Infusion Lactated Ringer's 1,000 mls @ 999 mls/hr 09/15/25 17:15 09/15/25 19:58 Lr IV 09/15/25 18:15 Infused .Q1H1M KATHY Infusion Lactated Ringer's 1,000 mls @ 999 mls/hr 09/15/25 20:29 09/15/25 21:55 Lr IV 09/15/25 21:29 Infused .Q1H1M ONE Infusion Iohexol 100 ml 09/15/25 23:36 09/15/25 23:37 Iohexol 350 Mg/Ml 100 Ml Infus..Btl IV 09/15/25 23:37 85 ml ONCE ONE Administration Lorazepam 2 mg 09/15/25 16:35 09/15/25 17:04 Lorazepam 1 Mg Tablet PO 09/15/25 16:36 2 mg ONCE ONE Administration Ondansetron HCl 4 mg 09/15/25 13:43 09/15/25 14:01 Ondansetron Odt 4 Mg Tab.Rapdis TRANSLINGU 09/15/25 13:44 4 mg ONCE ONE Administration Phenobarbital Sodium 221 mg 09/15/25 21:30 09/15/25 21:37 Phenobarbital Sodium 130 Mg/Ml Im Once IM 09/15/25 21:31 221 mg ONCE ONE Administration Procedures EJ/Peripheral Line Arm L: Skin Cleansed in Sterile Fashion: Yes Size (gauge): 20 IV Secured and Dressing Applied: Yes Patient Tolerated Procedure: well and no complications Critical Care Time Critical Care Time Critical Care Time: Yes Total Critical Care Time: 35 Attestation: I have personally provided critical care time exclusive of time spent on separately billable procedures. Time includes review of lab data, radiology results, discussion with consultants, and monitoring for potential decompensation. Intervention performed as documented. Discharge Plan Discharge Clinical Impression: Lactic acidosis Alcoholic intoxication Qualifiers: Complication of substance-induced condition: with unspecified complication Q ualified Code(s): F10.929 - Alcohol use, unspecified with intoxication, unspecified Patient Disposition: Admitted As Inpatient
[2025-09-15 12:56] LABS: Glucose, Whole Blood 246 mg/dL (60-115)
[2025-09-15 13:20] LABS: Hematocrit 41.7 % (37.0-47.0); Hemoglobin 14.3 g/dl (12.0-16.0); Imm Gran Abs Auto 0.02 X10*3/uL (0.00-0.03); Imm Gran Pct Auto 0.2 % (0.0-0.4); Lymphocytes Absolute Auto 4.6 X10*3/uL (1.2-4.9); MANUAL DIFF FLAG NO; Mean Corpuscular HGB Conc 34.3 g/dl (31.0-35.0); Mean Corpuscular Hemoglobin 30.0 pg (27.0-33.0); Mean Corpuscular Volume 87.6 fL (80.0-98.0); NRBC Abs Auto 0.000 X10*3/uL (0.0-0.012); NRBC Pct Auto 0.0 /100WBC (0.0-0.2); Platelet Count 370 X10*3/uL (160-400); Red Blood Count 4.76 X10*6/uL (4.20-5.50); White Blood Count 11.2 X10*3/uL (4.8-10.8)
[2025-09-15 13:45] LABS: Alanine Aminotransferase 28 U/L (0-31); Albumin Level 4.5 g/dL (3.5-5.0); Alkaline Phosphatase 103 U/L (39-117); Anion Gap 21 (12-20); Aspartate Amino Transferase 29 U/L (5-31); Blood Urea Nitrogen 6 mg/dL (9-16); Calcium 8.9 mg/dL (8.4-10.2); Carbon Dioxide 16 mmol/L (22-29); Chloride 107 mmol/L (96-108); Creatinine Clr Calc Pharmacy 119.4; Estimated Glomerular Filt Rate > 60; Lipase 8 U/L (8-78); Magnesium 2.2 mg/dL (1.6-2.6); Potassium 3.6 mmol/L (3.3-5.1); Sodium 140 mmol/L (135-145); Total Protein 7.7 g/dL (6.5-8.0)
--- NOTE | 2025-09-15 13:48 | PC.NURSE ---
pt sleepy but easily arousble, respirations even and unlabored, pt reports epigactric pain nausea and vomiting, pt is a daily drinker, was drinking today about 4-5 nips per day, pt is unable to go to detox because she has visitation rights with her children on Friday
[2025-09-15] MEDS: Magnesium Hydrox/Alum Hydrox 30 ML ORAL.SUSP PO (14:02)
--- NOTE | 2025-09-15 14:20 | PC.NURSE ---
attempted to get and iv access established pt is a hard stick unsuccessful at this time, md will look with and ultra sound instead
[2025-09-15] MEDS: Lactated Ringers 1,000 ML 999 ML IV ×3 (15:11→20:37)
[2025-09-15 15:18] LABS: Venous Blood Gas Refer to POC result
[2025-09-15 15:20] LABS: VBG HCO3 18 mmol/L (22-26); VBG O2 % Saturation 97.0 %
--- NOTE | 2025-09-15 15:30 | PC.NURSE ---
this rn got from [facility] and the pt pulled her ultra sound iv, keeps stating that she wants to leave, no being cooperative with care at this time, pt is being changed over into [facility] attire and belongings secured
--- NOTE | 2025-09-15 15:47 | MHC.EDTECH ---
1 Patient belonging bag secured in she port closet shelf #2 right side.
--- NOTE | 2025-09-15 16:55 | PC.NURSE ---
pt ia agreeable to allow this rn attempt another Iv, successful obtained an access in the left hand a 22 gangue
[2025-09-15 17:16] LABS: Reflex Lactate? Lactic Acid Added
--- OUTSIDE RECORDS SUMMARY | 2025-09-15 17:26 | XMS_ITS | Clinical Summary ---
Author Organization [employer] [facility] Address [address] [place] [address] Care Team Providers Care Equipment Operator [employer] Name Role Phone Unavailable Primary Care Provider Unavailabl e Encounters Date Type Department Care Team Description 06/21/2025 Population Health Risk Score [facility] Care [facility] (C3) Department [address] [facility] [address] [place] [address] Provider, Population Health Generic from [...]
[2025-09-15 17:57] LABS: ~Lactic Acid-LAB USE ONLY 5.9 mmol/L (0.5-2.0)
[2025-09-15] MEDS: diazePAM 10 MG/2 ML CARTRIDGE 5 MG IVPUSH ×3 (19:10→23:08)
[2025-09-15 19:37] LABS: Reflex Lactate? 2 Y
--- NOTE | 2025-09-15 21:05 | PC.NURSE ---
improvement analyst medicated pt per MAR. pt continues to be impatient, yelling out, wandering throughout the department and requiring frequent redirection. She is alert, oriented and without distress noted. She offers no complaints aside from being shaky at this time and continuing to ask when she will be leaving. Frequent education has been provided by her primary RN and DIANELYS regarding abnormal labs, need for IVF, and inability to leave right now s/t her intoxication level.
[2025-09-15] MEDS: PHENobarbitaL sodium 130 MG/ML IM ONCE 221 MG IM (21:37)
[2025-09-15 21:54] LABS: Reflex Lactate? Lactic Acid Added
[2025-09-15 22:23] LABS: Venous Blood Gas Refer to POC result
[2025-09-15 22:24] LABS: VBG HCO3 14 mmol/L (22-26); VBG O2 % Saturation 99.0 %
[2025-09-15 22:24] LABS: Appearance Urine Clear; Glucose Urine UA Negative (Negative); PH 5.5 (5.0-9.0); Specific Gravity - Urine 1.020 (1.005-1.025); UMIC TRIGGER UACC YES
[2025-09-15 22:35] LABS: Cannabinoid Screen Urine Not Detected (Not Detect)
[2025-09-15 22:36] LABS: Alanine Aminotransferase 24 U/L (0-31); Albumin Level 4.1 g/dL (3.5-5.0); Alkaline Phosphatase 100 U/L (39-117); Anion Gap 20 (12-20); Aspartate Amino Transferase 32 U/L (5-31); Blood Urea Nitrogen 7 mg/dL (9-16); Calcium 8.6 mg/dL (8.4-10.2); Carbon Dioxide 15 mmol/L (22-29); Chloride 106 mmol/L (96-108); Creatinine Clr Calc Pharmacy 121.5; Estimated Glomerular Filt Rate > 60; Potassium 4.0 mmol/L (3.3-5.1); Sodium 137 mmol/L (135-145); Total Protein 7.1 g/dL (6.5-8.0)
[2025-09-15 22:37] LABS: ~Lactic Acid-LAB USE ONLY 6.4 mmol/L (0.5-2.0)
[2025-09-15 22:45] LABS: UACC Culture Trigger YES
[2025-09-15] MEDS: iohexoL 350 MG/ML 100 ML INFUS..BTL IV (23:37)
[2025-09-16] VITALS (8 sets, daily range): BP systolic 115–161; BP diastolic 67–94; PULSE 55–119; RESP 5–20; TEMP 36.6–37.2; O2SAT 94–99
[2025-09-16 00:18] LABS: Reflex Lactate? 2 Y
--- NOTE | 2025-09-16 02:01 | PM.IMHP ---
History of Present Illness Date of Service: 09/16/25 Attending physician on admission: Abdirahman Banks Chief Complaint: Abdominal pain Ibeth Sommers is 29 y/o is a 29 years old woman with past medical history significant for bipolar disorder, alcohol abuse and diabetes mellitus on metformin presents to the emergency department complaining of right upper quadrant abdominal pain, nausea and vomiting. This information was obtained from ED provider as the patient is currently very intoxicated and sedated by medications given in the emergency department. She was found to have normal anion gap metabolic acidosis with marked elevated lactic acid. Blood workup remarkable for mild leukocytosis of 11.2. Renal function is stable and glucose is 168. LFT are essentially normal except for mild elevation of AST. Beta hydroxybutyrate is 0.11. And urinalysis is remarkable for ketones 15. It did showed WBC 6-10 and trace leukocyte steroids. Squamous cells 11-20. Toxicology is positive for barbiturates, PCP and benzos. ETOH level is 380. Abdominal pelvis CT scan showed cholelithiasis with mild gallbladder wall thickening. ED tx: Zofran 4 mg IV, Maalox 30 mL p.o., LR 2 L bolus, Ativan 2 mg p.o., Valium 15 mg IV total Review of Systems Review of Systems: Yes Unobtainable due to mental status [facility] Medical History PTSD (post-traumatic stress disorder) Polysubstance use disorder Alcohol use disorder Bipolar disorder Social History Household Members: Family Household Members Other:: 3 Housing: House Do you presently have visiting nurse or other home services: No Alcohol intake: current Alcohol intake frequency: 3 or more drinks per day Alcohol type: hard liquor Comment: sitter Patient Tobacco Use Status: Never used Tobacco Tobacco use type: Cigarette Cigarettes Per Day: 7 Smoked in Last 30 Days: Yes e-Cigarette/Vaping Use: Currently Using Second Hand Smoke Exposure: No Use of substances other than those prescribed or required for medical reasons: No Substance Use Type: Opiates and Other Advance Directives: No Advance Directives Information Provided: Yes Do you have a plan to hurt others: No Plan service: No Sexual orientation: Straight/Heterosexual Meds Allergies Allergy/AdvReac Type Severity Reaction Status Date / Time SEAFOOD Allergy Unknown UNK Uncoded 09/15/25 12:56 Active Medications: Current Medications Acetaminophen (Acetaminophen 325 Mg Tablet) 650 mg PO Q6H PRN PRN Reason: Pain, Mild 1-3,fever,headache Calcium Carbonate (Calcium Carbonate 750 Mg Tab.Chew) 750 mg PO Q4H PRN PRN Reason: Heartburn Dextrose (Dextrose 50 % 25 Gm/50 Ml Syringe) 25 gm IVPUSH Q15M PRN; Protocol PRN Reason: per Hypoglycemia Standing Ord. Enoxaparin Sodium (Enoxaparin Sodium 40 Mg/0.4 Ml Syringe) 40 mg SUBCUT Q24H KATHY Folic Acid (Folic Acid 1 Mg Tablet) 1 mg PO DAILY [facility] Glucose (Glucose Gel 15 Gm Gel..Gram.) 15 gm PO Q15M PRN; Protocol PRN Reason: per Hypoglycemia Standing Ord. Hydromorphone HCl (Hydromorphone Hcl 0.5 Mg/0.5 Ml Syringe) 0.5 mg IVPUSH Q3H PRN; Protocol PRN Reason: Pain, Severe (Pain Scale 7-10) Dextrose/Sodium Chloride (D5ns) 1,000 mls @ 125 mls/hr IVCONT .Q8H [facility] Thiamine HCl 100 mg/ Sodium (Chloride) 101 mls @ 202 mls/hr IV DAILY [facility] Thiamine HCl 100 mg/ Sodium (Chloride) 101 mls @ 202 mls/hr IV ONCE STA Stop: 09/16/25 02:25 Insulin Human Lispro (Insulin Lispro 100 Unit/Ml 3 Ml Vial) 0 unit SUBCUT QIDACHS [facility]; Protocol Magnesium Hydroxide (Milk Of Magnesia 30 Ml Oral.Susp) 30 ml PO DAILY PRN PRN Reason: Constipation Melatonin (Melatonin 3 Mg Tablet) 6 mg PO BEDTIME PRN PRN Reason: Insomnia Multivitamins/Vitamin C (Multivitamin Tablet) 1 tab PO DAILY [facility] Ondansetron HCl (Ondansetron Hcl 4 Mg/2 Ml Vial) 4 mg IVPUSH Q8H PRN PRN Reason: Nausea and Vomiting Pantoprazole Sodium (Pantoprazole Sodium 40 Mg/10 Ml Vial) 40 mg IVPUSH DAILY@0630 [facility] Pharmacy Consult (Consult Rx Etoh Phenob Im/Po) 1 each MISCELLANE ONCE PRN; Protocol PRN Reason: Consult order Phenobarbital (Phenobarbital 15 Mg Tablet) 45 mg PO BID [facility] Stop: 09/18/25 09:01 Phenobarbital (Phenobarbital 15 Mg Tablet) 15 mg PO BID [facility] Stop: 09/20/25 09:01 Phenobarbital (Phenobarbital 15 Mg Tablet) 15 mg PO DAILY [facility] Stop: 09/22/25 09:01 Phenobarbital Sodium (Phenobarbital Sodium 130 Mg/Ml Vial Im Q3hx2) 164 mg IM Q3H KATHY Stop: 09/16/25 04:01 Sodium Chloride (0.9 % Sodium Chloride Flush 3 Ml Syringe) 3 ml IVFLUSH QSHIFT [facility] Physical Exam Vital Signs and Narrative: Vital Signs: Last Vital Signs Temp 98.2 F 09/15/25 23:07 Pulse 92 09/15/25 23:07 Resp 18 09/15/25 23:07 BP 143/89 H 09/15/25 23:07 Pulse Ox 98 09/15/25 23:07 O2 Del Method Room Air 09/15/25 23:07 BMI result Body Mass Index 23.8 General: Very intoxicated, sedated. Falling asleep constantly. Well nourished. Uncooperative. Afebrile. HEENT: Head normocephalic, atraumatic. PER, EOMI. Sclerae anicteric, conjunctiva clear. Oropharynx without erythema or exudate. Mucous membranes moist. Neck: Supple. Heart: RRR, no murmurs, rubs or gallops. Lungs: Clear to auscultation bilaterally. No wheezes, rales, or rhonchi. Normal respiratory effort. Abdomen: Soft, non tenderness, nondistended, normoactive bowel sounds. No hepatosplenomegaly, masses. Extremities: No calf tenderness bilaterally, no swelling Musculoskeletal: Full range of motion. No joint swelling, deformity, or tenderness. Normal muscle tone and strength. Skin: Warm/Dry. No pallor. No jaundice. Neurologic: Somnolent. Psychological: Somnolent. Results Labs 09/15/25 13:13 09/15/25 22:12 Labs: Laboratory Results - last 24 hr 09/15/25 09/15/25 09/15/25 12:53 13:13 15:09 MCV 87.6 MCH 30.0 MCHC 34.3 RDW 12.2 Plt Count 370 MPV 8.9 L Immature Gran % (Auto) 0.2 Neut % (Auto) 53.6 Lymph % (Auto) 40.9 H [place] % (Auto) 2.5 Eos % (Auto) 2.1 Baso % (Auto) 0.7 Lymph # (Auto) 4.6 [place] # (Auto) 0.3 Eos # (Auto) 0.2 Baso # (Auto) 0.1 Abs Immat Gran (auto) 0.02 Absolute Neuts (auto) 6.0 Absolute Nucleated RBC 0.000 Nucleated RBC % (auto) 0.0 VBG pH VBG pCO2 VBG pO2 VBG HCO3 VBG O2 Saturation VBG Base Excess Anion Gap 21 H Estim Creat Clear Calc 119.4 Estimated GFR > 60 POC Glucose 246 H Random Glucose 247 H Lactic Acid 5.7 H* Lactic Acid F/U @ 2Hr Calcium 8.9 D Magnesium 2.2 Total Bilirubin 0.2 Direct Bilirubin < 0.2 AST 29 ALT 28 Alkaline Phosphatase 103 Total Protein 7.7 Albumin 4.5 Lipase 8 Beta-Hydroxybutyrate 0.11 Urine Color Urine Appearance Urine pH Ur Specific [place] Urine Protein Urine Glucose (UA) Urine Ketones Urine Blood Urine Nitrite Ur Leukocyte Esterase Urine RBC Urine WBC Ur Squamous Epith Cells Urine Bacteria Hyaline Casts Urine Opiates Screen Ur Buprenorphine Scrn Ur Oxycodone Screen Urine Methadone Screen Urine Fentanyl Screen Ur Barbiturates Screen Ur Phencyclidine Scrn Ur Amphetamines Screen U Benzodiazepines Scrn Urine Cocaine Screen U Marijuana (THC) Screen Ethyl Alcohol 380 H* 09/15/25 09/15/25 09/15/25 15:15 17:35 19:51 MCV MCH MCHC RDW Plt Count MPV Immature Gran % (Auto) Neut % (Auto) Lymph % (Auto) [place] % (Auto) Eos % (Auto) Baso % (Auto) Lymph # (Auto) [place] # (Auto) Eos # (Auto) Baso # (Auto) Abs Immat Gran (auto) Absolute Neuts (auto) Absolute Nucleated RBC Nucleated RBC % (auto) VBG pH 7.46 H VBG pCO2 26 VBG pO2 87 VBG HCO3 18 L VBG O2 Saturation 97.0 VBG Base Excess -3.1 Anion Gap Estim Creat Clear Calc Estimated GFR POC Glucose Random Glucose Lactic Acid 6.0 H* Lactic Acid F/U @ 2Hr 5.9 H* Calcium Magnesium Total Bilirubin Direct Bilirubin AST ALT Alkaline Phosphatase Total Protein Albumin Lipase Beta-Hydroxybutyrate Urine Color Urine Appearance Urine pH Ur Specific [place] Urine Protein Urine Glucose (UA) Urine Ketones Urine Blood Urine Nitrite Ur Leukocyte Esterase Urine RBC Urine WBC Ur Squamous Epith Cells Urine Bacteria Hyaline Casts Urine Opiates Screen Ur Buprenorphine Scrn Ur Oxycodone Screen Urine Methadone Screen Urine Fentanyl Screen Ur Barbiturates Screen Ur Phencyclidine Scrn Ur Amphetamines Screen U Benzodiazepines Scrn Urine Cocaine Screen U Marijuana (THC) Screen Ethyl Alcohol 09/15/25 09/15/25 22:12 22:21 MCV MCH MCHC RDW Plt Count MPV Immature Gran % (Auto) Neut % (Auto) Lymph % (Auto) [place] % (Auto) Eos % (Auto) Baso % (Auto) Lymph # (Auto) [place] # (Auto) Eos # (Auto) Baso # (Auto) Abs Immat Gran (auto) Absolute Neuts (auto) Absolute Nucleated RBC Nucleated RBC % (auto) VBG pH 7.59 H VBG pCO2 14 VBG pO2 168 VBG HCO3 14 L VBG O2 Saturation 99.0 VBG Base Excess -3.8 Anion Gap 20 Estim Creat Clear Calc 121.5 Estimated GFR > 60 POC Glucose Random Glucose 168 H Lactic Acid Lactic Acid F/U @ 2Hr 6.4 H* Calcium 8.6 Magnesium Total Bilirubin 0.3 Direct Bilirubin AST 32 H ALT 24 Alkaline Phosphatase 100 Total Protein 7.1 Albumin 4.1 Lipase Beta-Hydroxybutyrate Urine Color Yellow Urine Appearance Clear Urine pH 5.5 Ur Specific [place] 1.020 Urine Protein Trace Urine Glucose (UA) Negative Urine Ketones 15 Urine Blood Negative Urine Nitrite Negative Ur Leukocyte Esterase Trace H Urine RBC 0-2 Urine WBC 6-10 Ur Squamous Epith Cells 11-20 Urine Bacteria 1+ Hyaline Casts 6-10 Urine Opiates Screen Not Detected Ur Buprenorphine Scrn Not Detected Ur Oxycodone Screen Not Detected Urine Methadone Screen Not Detected Urine Fentanyl Screen Not Detected Ur Barbiturates Screen POSITIVE H Ur Phencyclidine Scrn POSITIVE H Ur Amphetamines Screen Not Detected U Benzodiazepines Scrn POSITIVE H Urine Cocaine Screen Not Detected U Marijuana (THC) Screen Not Detected Ethyl Alcohol Assessment and Plan (1) Alcoholic intoxication: Qualifiers: Complication of substance-induced condition: with unspecified complication Qualified Code(s): F10.929 - Alcohol use, unspecified with intoxication, unspecified Status: Acute (2) Lactic acidosis: Status: Acute Plan Ibeth Sommers is 29 y/o is a 29 y/o woman who presents to the emergency department with: Non-anion gap metabolic acidosis likely multifactorial: Lactic acidosis due to alcohol intoxication and metformin use; and alcoholic ketoacidosis. IV fluids. Continue to monitor lactic acid. Alcohol abuse. Alcohol abstinence. Continue phenobarbital protocol. Ativan p.o. as needed for anxiety. Thiamine, folic acid and multivitamins. Cholelithiasis. ?Cholecystitis. LFTs and lipase are normal. Check abdominal ultrasound. Type 2 diabetes mellitus. BG checks before meals at bedtime. Insulin sliding scale. Diabetic diet. Check hemoglobin A1c. Bipolar disorder. Continue home meds. Code status: Full DVT prophylaxis: Lovenox Patient will need hospitalization for at least 2 midnights for marked metabolic acidosis treatment with IV fluids and close monitoring of CO2 and lactic acid. Quality Stroke Does the patient have a stroke diagnosis?: No VTE Prior VTE?: No VTE Risk Level:: Medical - moderate - high VTE Device Contraindication: N/A - Device Ordered VTE Drug Contraindication: N/A - Med Ordered
[2025-09-16] MEDS: PHENobarbitaL sodium 130 MG/ML VIAL IM Q3Hx2 164 MG IM ×2 (02:06→05:13)
[2025-09-16 02:26] LABS: Lipase 7 U/L (8-78)
--- NOTE | 2025-09-16 02:31 | PC.NURSE ---
0215 bed 22h pt now awake after resting comfortably in the stretcher for the past few hours, she can be heard moaning out and calling for the nurse. The pt continues to state I don't feel good , conversing freely and without acute distress noted. She continues to ask for that medicine from earlier as she reports it helped and is the only medicine that helps . Current CIWA is a 13 and hospitalist made aware, pt requesting additional doses of valium and these requests were passed along to the MD. Pt yawning, appears drowsy, ambulating freely despite being told/asked to remain at her bed for safety as stretchers and patients pass through the halls. The pt is hyper focused on speaking with the provider at this time and is declining the hospitalists offer of giving her PO ativan at this time. She has been to the bathroom and is aware that the hospitalist will be down to speak with her at their earliest convenience. Staff continue to offer food and beverage to the patient but she continues to decline
[2025-09-16] MEDS: Thiamine HCL 100 MG in 0.9 % Sodium Chloride 100 ML 202 MG IV ×2 (02:40→08:12)
[2025-09-16 02:44] LABS: ~Lactic Acid-LAB USE ONLY 4.4 mmol/L (0.5-2.0)
--- NOTE | 2025-09-16 02:51 | PC.NURSE ---
hospitalist to bedside to speak with patient. the pt is focused primarily on the amount of medication/dose that she is going to receive and the route in which she is going to receive it. The pt's outward expressions of discomfort tend to come and go depending upon who is and is not around/present. The hospitalist once again informed the pt that she would give her oral valium and/or ativan but not IV and the pt continues to decline. Dilaudid order to be adjusted and given for reports of 10/10 generalized discomfort/pain.
[2025-09-16 06:07] LABS: MANUAL DIFF FLAG NO
[2025-09-16 06:10] LABS: Hematocrit 38.4 % (37.0-47.0); Hemoglobin 13.2 g/dl (12.0-16.0); Imm Gran Abs Auto 0.04 X10*3/uL (0.00-0.03); Imm Gran Pct Auto 0.3 % (0.0-0.4); Lymphocytes Absolute Auto 2.7 X10*3/uL (1.2-4.9); Mean Corpuscular HGB Conc 34.4 g/dl (31.0-35.0); Mean Corpuscular Hemoglobin 30.0 pg (27.0-33.0); Mean Corpuscular Volume 87.3 fL (80.0-98.0); NRBC Abs Auto 0.000 X10*3/uL (0.0-0.012); NRBC Pct Auto 0.0 /100WBC (0.0-0.2); Platelet Count 270 X10*3/uL (160-400); Red Blood Count 4.40 X10*6/uL (4.20-5.50); White Blood Count 12.0 X10*3/uL (4.8-10.8)
[2025-09-16 06:17] LABS: Hemoglobin A1C 248.6924 umol/L; Total Hemoglobin (HGBA1C) 3396.1878 umol/L
[2025-09-16 06:27] LABS: Alanine Aminotransferase 60 U/L (0-31); Albumin Level 4.1 g/dL (3.5-5.0); Alkaline Phosphatase 112 U/L (39-117); Anion Gap 15 (12-20); Aspartate Amino Transferase 219 U/L (5-31); Blood Urea Nitrogen 9 mg/dL (9-16); Calcium 8.4 mg/dL (8.4-10.2); Carbon Dioxide 22 mmol/L (22-29); Chloride 103 mmol/L (96-108); Creatinine Clr Calc Pharmacy 121.5; Estimated Glomerular Filt Rate > 60; Magnesium 1.9 mg/dL (1.6-2.6); Potassium 3.9 mmol/L (3.3-5.1); Sodium 136 mmol/L (135-145); Total Protein 6.8 g/dL (6.5-8.0)
[2025-09-16 07:32] LABS: Glucose, Whole Blood 237 mg/dL (60-115)
--- NOTE | 2025-09-16 09:23 | HO.PM.IMPN ---
Subjective Subjective Date of Service: 09/16/25 Interval History: alcohol withdrawals Review of Systems [id number] Review of Systems: Yes all other systems are reviewed and are negative Physical Exam Vital Signs: Vital Signs: Last Vital Signs Temp 97.8 F 09/16/25 04:09 Pulse 84 09/16/25 04:09 Resp 13 09/16/25 04:09 BP 115/68 09/16/25 04:09 Pulse Ox 96 09/16/25 04:09 O2 Del Method Room Air 09/16/25 04:09 BMI result Body Mass Index 23.8 Objective Data Active Medications Acetaminophen (Acetaminophen 325 Mg Tablet) 650 mg PO Q6H PRN PRN Reason: Pain, Mild 1-3,fever,headache Calcium Carbonate (Calcium Carbonate 750 Mg Tab.Chew) 750 mg PO Q4H PRN PRN Reason: Heartburn Dextrose (Dextrose 50 % 25 Gm/50 Ml Syringe) 25 gm IVPUSH Q15M PRN; Protocol PRN Reason: per Hypoglycemia Standing Ord. Diazepam (Diazepam 2 Mg Tablet) 2 mg PO Q4H PRN PRN Reason: Anxiety Enoxaparin Sodium (Enoxaparin Sodium 40 Mg/0.4 Ml Syringe) 40 mg SUBCUT Q24H [facility] Last Admin: 09/16/25 08:14 Dose: 40 mg Documented By: ANNETTE Folic Acid (Folic Acid 1 Mg Tablet) 1 mg PO DAILY [facility] Last Admin: 09/16/25 08:19 Dose: Not Given Documented By: ANNETTE Non-Admin Reason: Patient Refused Glucose (Glucose Gel 15 Gm Gel..Gram.) 15 gm PO Q15M PRN; Protocol PRN Reason: per Hypoglycemia Standing Ord. Hydromorphone HCl (Hydromorphone Hcl 0.5 Mg/0.5 Ml Syringe) 1 mg IVPUSH Q3H PRN; Protocol PRN Reason: Pain, Severe (Pain Scale 7-10) Last Admin: 09/16/25 07:21 Dose: 1 mg Documented By: ANNETTE Dextrose/Sodium Chloride (D5ns) 1,000 mls @ 125 mls/hr IVCONT .Q8H [facility] Last Admin: 09/16/25 03:57 Dose: 125 mls/hr Documented By: RAVINDER Thiamine HCl 100 mg/ Sodium (Chloride) 101 mls @ 202 mls/hr IV DAILY [facility] Last Infusion: 09/16/25 08:56 Dose: Infused Documented By: ANNETTE Insulin Human Lispro (Insulin Lispro 100 Unit/Ml 3 Ml Vial) 0 unit SUBCUT QIDACHS [facility]; Protocol Last Admin: 09/16/25 08:13 Dose: 4 unit Documented By: ANNETTE Magnesium Hydroxide (Milk Of Magnesia 30 Ml Oral.Susp) 30 ml PO DAILY PRN PRN Reason: Constipation Melatonin (Melatonin 3 Mg Tablet) 6 mg PO BEDTIME PRN PRN Reason: Insomnia Multivitamins/Vitamin C (Multivitamin Tablet) 1 tab PO DAILY [facility] Last Admin: 09/16/25 08:19 Dose: Not Given Documented By: ANNETTE Non-Admin Reason: Patient Refused Ondansetron HCl (Ondansetron Hcl 4 Mg/2 Ml Vial) 4 mg IVPUSH Q8H PRN PRN Reason: Nausea and Vomiting Last Admin: 09/16/25 02:53 Dose: 4 mg Documented By: EMANI Pantoprazole Sodium (Pantoprazole Sodium 40 Mg/10 Ml Vial) 40 mg IVPUSH DAILY@0630 [facility] Last Admin: 09/16/25 02:39 Dose: 40 mg Documented By: EMANI Pharmacy Consult (Consult Rx Etoh Phenob Im/Po) 1 each MISCELLANE ONCE PRN; Protocol PRN Reason: Consult order Phenobarbital (Phenobarbital 15 Mg Tablet) 45 mg PO BID [facility] Stop: 09/18/25 09:01 Phenobarbital (Phenobarbital 15 Mg Tablet) 15 mg PO BID [facility] Stop: 09/20/25 09:01 Phenobarbital (Phenobarbital 15 Mg Tablet) 15 mg PO DAILY [facility] Stop: 09/22/25 09:01 Sodium Chloride (0.9 % Sodium Chloride Flush 3 Ml Syringe) 3 ml IVFLUSH QSHIFT [facility] Last Admin: 09/16/25 07:25 Dose: Not Given Documented By: ANNETTE Non-Admin Reason: IV Running Labs 09/16/25 05:30 09/16/25 05:30 Labs: Laboratory Results - last 24 hr 09/15/25 09/15/25 09/15/25 12:53 13:13 15:09 MCV 87.6 MCH 30.0 MCHC 34.3 RDW 12.2 Plt Count 370 MPV 8.9 L Immature Gran % (Auto) 0.2 Neut % (Auto) 53.6 Lymph % (Auto) 40.9 H [place] % (Auto) 2.5 Eos % (Auto) 2.1 Baso % (Auto) 0.7 Lymph # (Auto) 4.6 Morris # (Auto) 0.3 Eos # (Auto) 0.2 Baso # (Auto) 0.1 Abs Immat Gran (auto) 0.02 Absolute Neuts (auto) 6.0 Absolute Nucleated RBC 0.000 Nucleated RBC % (auto) 0.0 VBG pH VBG pCO2 VBG pO2 VBG HCO3 VBG O2 Saturation VBG Base Excess Anion Gap 21 H Estim Creat Clear Calc 119.4 Estimated GFR > 60 POC Glucose 246 H Random Glucose 247 H Estimat Average Glucose Hemoglobin A1c % Lactic Acid 5.7 H* Lactic Acid F/U @ 2Hr Lactic Acid F/U @ 4Hr Calcium 8.9 D Magnesium 2.2 Total Bilirubin 0.2 Direct Bilirubin < 0.2 AST 29 ALT 28 Alkaline Phosphatase 103 C-Reactive Protein Total Protein 7.7 Albumin 4.5 Lipase 8 Beta-Hydroxybutyrate 0.11 Urine Color Urine Appearance Urine pH Ur Specific [place] Urine Protein Urine Glucose (UA) Urine Ketones Urine Blood Urine Nitrite Ur Leukocyte Esterase Urine RBC Urine WBC Ur Squamous Epith Cells Urine Bacteria Hyaline Casts Urine Opiates Screen Ur Buprenorphine Scrn Ur Oxycodone Screen Urine Methadone Screen Urine Fentanyl Screen Ur Barbiturates Screen Ur Phencyclidine Scrn Ur Amphetamines Screen U Benzodiazepines Scrn Urine Cocaine Screen U Marijuana (THC) Screen Ethyl Alcohol 380 H* 09/15/25 09/15/25 09/15/25 15:15 17:35 19:51 MCV MCH MCHC RDW Plt Count MPV Immature Gran % (Auto) Neut % (Auto) Lymph % (Auto) [place] % (Auto) Eos % (Auto) Baso % (Auto) Lymph # (Auto) [place] # (Auto) Eos # (Auto) Baso # (Auto) Abs Immat Gran (auto) Absolute Neuts (auto) Absolute Nucleated RBC Nucleated RBC % (auto) VBG pH 7.46 H VBG pCO2 26 VBG pO2 87 VBG HCO3 18 L VBG O2 Saturation 97.0 VBG Base Excess -3.1 Anion Gap Estim Creat Clear Calc Estimated GFR POC Glucose Random Glucose Estimat Average Glucose Hemoglobin A1c % Lactic Acid 6.0 H* Lactic Acid F/U @ 2Hr 5.9 H* Lactic Acid F/U @ 4Hr Calcium Magnesium Total Bilirubin Direct Bilirubin AST ALT Alkaline Phosphatase C-Reactive Protein Total Protein Albumin Lipase Beta-Hydroxybutyrate Urine Color Urine Appearance Urine pH Ur Specific [place] Urine Protein Urine Glucose (UA) Urine Ketones Urine Blood Urine Nitrite Ur Leukocyte Esterase Urine RBC Urine WBC Ur Squamous Epith Cells Urine Bacteria Hyaline Casts Urine Opiates Screen Ur Buprenorphine Scrn Ur Oxycodone Screen Urine Methadone Screen Urine Fentanyl Screen Ur Barbiturates Screen Ur Phencyclidine Scrn Ur Amphetamines Screen U Benzodiazepines Scrn Urine Cocaine Screen U Marijuana (THC) Screen Ethyl Alcohol 09/15/25 09/15/25 09/16/25 22:12 22:21 02:15 MCV MCH MCHC RDW Plt Count MPV Immature Gran % (Auto) Neut % (Auto) Lymph % (Auto) [place] % (Auto) Eos % (Auto) Baso % (Auto) Lymph # (Auto) [place] # (Auto) Eos # (Auto) Baso # (Auto) Abs Immat Gran (auto) Absolute Neuts (auto) Absolute Nucleated RBC Nucleated RBC % (auto) VBG pH 7.59 H VBG pCO2 14 VBG pO2 168 VBG HCO3 14 L VBG O2 Saturation 99.0 VBG Base Excess -3.8 Anion Gap 20 Estim Creat Clear Calc 121.5 Estimated GFR > 60 POC Glucose Random Glucose 168 H Estimat Average Glucose Hemoglobin A1c % Lactic Acid Lactic Acid F/U @ 2Hr 6.4 H* Lactic Acid F/U @ 4Hr 4.4 H* Calcium 8.6 Magnesium Total Bilirubin 0.3 Direct Bilirubin AST 32 H ALT 24 Alkaline Phosphatase 100 C-Reactive Protein 0.14 Total Protein 7.1 Albumin 4.1 Lipase 7 L Beta-Hydroxybutyrate Urine Color Yellow Urine Appearance Clear Urine pH 5.5 Ur Specific [place] 1.020 Urine Protein Trace Urine Glucose (UA) Negative Urine Ketones 15 Urine Blood Negative Urine Nitrite Negative Ur Leukocyte Esterase Trace H Urine RBC 0-2 Urine WBC 6-10 Ur Squamous Epith Cells 11-20 Urine Bacteria 1+ Hyaline Casts 6-10 Urine Opiates Screen Not Detected Ur Buprenorphine Scrn Not Detected Ur Oxycodone Screen Not Detected Urine Methadone Screen Not Detected Urine Fentanyl Screen Not Detected Ur Barbiturates Screen POSITIVE H Ur Phencyclidine Scrn POSITIVE H Ur Amphetamines Screen Not Detected U Benzodiazepines Scrn POSITIVE H Urine Cocaine Screen Not Detected U Marijuana (THC) Screen Not Detected Ethyl Alcohol 09/16/25 09/16/25 05:30 07:28 MCV 87.3 MCH 30.0 MCHC 34.4 RDW 12.0 Plt Count 270 D MPV 9.4 Immature Gran % (Auto) 0.3 Neut % (Auto) 70.0 Lymph % (Auto) 22.3 [place] % (Auto) 5.3 Eos % (Auto) 1.8 Baso % (Auto) 0.3 Lymph # (Auto) 2.7 [place] # (Auto) 0.6 Eos # (Auto) 0.2 Baso # (Auto) 0.0 Abs Immat Gran (auto) 0.04 H Absolute Neuts (auto) 8.4 H Absolute Nucleated RBC 0.000 Nucleated RBC % (auto) 0.0 VBG pH VBG pCO2 VBG pO2 VBG HCO3 VBG O2 Saturation VBG Base Excess Anion Gap 15 Estim Creat Clear Calc 121.5 Estimated GFR > 60 POC Glucose 237 H Random Glucose 240 H Estimat Average Glucose 209 Hemoglobin A1c % 8.9 H Lactic Acid Lactic Acid F/U @ 2Hr Lactic Acid F/U @ 4Hr Calcium 8.4 Magnesium 1.9 Total Bilirubin 0.9 Direct Bilirubin AST 219 H ALT 60 H Alkaline Phosphatase 112 C-Reactive Protein Total Protein 6.8 Albumin 4.1 Lipase Beta-Hydroxybutyrate Urine Color Urine Appearance Urine pH Ur Specific [place] Urine Protein Urine Glucose (UA) Urine Ketones Urine Blood Urine Nitrite Ur Leukocyte Esterase Urine RBC Urine WBC Ur Squamous Epith Cells Urine Bacteria Hyaline Casts Urine Opiates Screen Ur Buprenorphine Scrn Ur Oxycodone Screen Urine Methadone Screen Urine Fentanyl Screen Ur Barbiturates Screen Ur Phencyclidine Scrn Ur Amphetamines Screen U Benzodiazepines Scrn Urine Cocaine Screen U Marijuana (THC) Screen Ethyl Alcohol Assessment and Plan Plan 29 y/o woman who presents to the emergency department with: Non-anion gap metabolic acidosis likely multifactorial: Lactic acidosis due to alcohol intoxication and metformin use; and alcoholic ketoacidosis. IV fluids. Continue to monitor lactic acid. Alcohol abuse. Alcohol abstinence. Continue phenobarbital protocol. Ativan p.o. as needed for anxiety. Thiamine, folic acid and multivitamins. Cholelithiasis. ?Cholecystitis. LFTs and lipase are normal. Check abdominal ultrasound. Type 2 diabetes mellitus. BG checks before meals at bedtime. Insulin sliding scale. Diabetic diet. Check hemoglobin A1c. Bipolar disorder. Continue home meds. Code status: Full DVT prophylaxis: Lovenox Patient will need hospitalization for at least 2 midnights for marked metabolic acidosis treatment with IV fluids and close monitoring of CO2 and lactic acid. Quality Stroke Does the patient have a stroke diagnosis?: No VTE Prior VTE?: No VTE Risk Level:: Medical - moderate - high VTE Device Contraindication: N/A - Device Ordered VTE Drug Contraindication: N/A - Med Ordered
--- NOTE | 2025-09-16 09:25 | PM.EVENT ---
Event Note Date of Service: 09/16/25 Event Note: Patient seen and examined by hospitalist team this morning, seen and examined again, Still tremulous and anxious, CIWA scale so 13. Physical exam and assessment and plan as per H and P note. Time Spent With Patient Time: Total time managing care of this patient today ____ minutes.
--- NOTE | 2025-09-16 11:18 | MHC.CM.PN ---
Pt in ED, sleeping soundly. Assessment info from EMR review. Pt. was here 08/14/-08/18 on medical floor and psych inpt. She goes to [facility] in [place] as PCP. She lives with her father and is independent. DCP: Addiction team to assist with DCP. CM to follow for DC needs.
--- NOTE | 2025-09-16 12:05 | PHA.MEDREC ---
Pharmacy Consult ? Medication Reconciliation Pharmacy has completed the medication reconciliation. Spoke to patient to confirm medication list. Patient was recently discharged on 08/19/25 and said her medications are still the same. She is still taking clonidine 0.1 mg tid. She has not started trulicity nor metronidazole cream yet. She confirmed she is still taking glipizide. She said her last dose of medications was about 3 days ago.
[2025-09-16 13:12] LABS: Glucose, Whole Blood 187 mg/dL (60-115)
--- NOTE | 2025-09-16 13:20 | PC.NURSE ---
pt not eating, occasionally drinks some juice. states she does not want to eat bc of pain in her abd. POC 187. holding insulin lispro at this time
--- NOTE | 2025-09-16 15:40 | PC.NURSE ---
pt crying and screaming out in pain, states it is all over her insides. medicated with PRN dilaudid 1mg
--- NOTE | 2025-09-16 16:25 | HO.PM.IMPN ---
Subjective Subjective Date of Service: 09/16/25 Interval History: Alcohol withdrawal Review of Systems Has some epigastric discomfort, anxious and tremulous. No fever Review of Systems: Yes all other systems are reviewed and are negative Physical Exam Vital Signs: Vital Signs: Last Vital Signs Temp 97.8 F 09/16/25 04:09 Pulse 97 09/16/25 15:41 Resp 16 09/16/25 15:41 BP 131/86 09/16/25 15:41 Pulse Ox 97 09/16/25 15:41 O2 Del Method Room Air 09/16/25 15:41 BMI result Body Mass Index 23.8 Objective Data Active Medications Acetaminophen (Acetaminophen 325 Mg Tablet) 650 mg PO Q6H PRN PRN Reason: Pain, Mild 1-3,fever,headache Calcium Carbonate (Calcium Carbonate 750 Mg Tab.Chew) 750 mg PO Q4H PRN PRN Reason: Heartburn Dextrose (Dextrose 50 % 25 Gm/50 Ml Syringe) 25 gm IVPUSH Q15M PRN; Protocol PRN Reason: per Hypoglycemia Standing Ord. Diazepam (Diazepam 2 Mg Tablet) 2 mg PO Q4H PRN PRN Reason: Anxiety Enoxaparin Sodium (Enoxaparin Sodium 40 Mg/0.4 Ml Syringe) 40 mg SUBCUT Q24H [facility] Last Admin: 09/16/25 08:14 Dose: 40 mg Documented By: ANNETTE Folic Acid (Folic Acid 1 Mg Tablet) 1 mg PO DAILY [facility] Last Admin: 09/16/25 08:19 Dose: Not Given Documented By: ANNETTE Non-Admin Reason: Patient Refused Glucose (Glucose Gel 15 Gm Gel..Gram.) 15 gm PO Q15M PRN; Protocol PRN Reason: per Hypoglycemia Standing Ord. Hydromorphone HCl (Hydromorphone Hcl 0.5 Mg/0.5 Ml Syringe) 1 mg IVPUSH Q3H PRN; Protocol PRN Reason: Pain, Severe (Pain Scale 7-10) Last Admin: 09/16/25 15:40 Dose: 1 mg Documented By: ANNETTE Dextrose/Sodium Chloride (D5ns) 1,000 mls @ 125 mls/hr IVCONT .Q8H [facility] Last Admin: 09/16/25 12:00 Dose: 125 mls/hr Documented By: ANNETTE Thiamine HCl 100 mg/ Sodium (Chloride) 101 mls @ 202 mls/hr IV DAILY [facility] Last Infusion: 09/16/25 08:56 Dose: Infused Documented By: ANNETTE Insulin Human Lispro (Insulin Lispro 100 Unit/Ml 3 Ml Vial) 0 unit SUBCUT QIDACHS [facility]; Protocol Last Admin: 09/16/25 13:20 Dose: Not Given Documented By: ANNETTE Non-Admin Reason: See Note Magnesium Hydroxide (Milk Of Magnesia 30 Ml Oral.Susp) 30 ml PO DAILY PRN PRN Reason: Constipation Melatonin (Melatonin 3 Mg Tablet) 6 mg PO BEDTIME PRN PRN Reason: Insomnia Multivitamins/Vitamin C (Multivitamin Tablet) 1 tab PO DAILY [facility] Last Admin: 09/16/25 08:19 Dose: Not Given Documented By: ANNETTE Non-Admin Reason: Patient Refused Ondansetron HCl (Ondansetron Hcl 4 Mg/2 Ml Vial) 4 mg IVPUSH Q8H PRN PRN Reason: Nausea and Vomiting Last Admin: 09/16/25 02:53 Dose: 4 mg Documented By: EMANI Pantoprazole Sodium (Pantoprazole Sodium 40 Mg/10 Ml Vial) 40 mg IVPUSH DAILY@0630 [facility] Last Admin: 09/16/25 02:39 Dose: 40 mg Documented By: EMANI Pharmacy Consult (Consult Rx Etoh Phenob Im/Po) 1 each MISCELLANE ONCE PRN; Protocol PRN Reason: Consult order Phenobarbital (Phenobarbital 15 Mg Tablet) 45 mg PO BID [facility] Stop: 09/18/25 09:01 Phenobarbital (Phenobarbital 15 Mg Tablet) 15 mg PO BID [facility] Stop: 09/20/25 09:01 Phenobarbital (Phenobarbital 15 Mg Tablet) 15 mg PO DAILY [facility] Stop: 09/22/25 09:01 Sodium Chloride (0.9 % Sodium Chloride Flush 3 Ml Syringe) 3 ml IVFLUSH QSHIFT [facility] Last Admin: 09/16/25 07:25 Dose: Not Given Documented By: ANNETTE Non-Admin Reason: IV Running Labs 09/16/25 05:30 09/16/25 05:30 Labs: Laboratory Results - last 24 hr 09/15/25 09/15/25 09/15/25 17:35 19:51 22:12 MCV MCH MCHC RDW Plt Count MPV Immature Gran % (Auto) Neut % (Auto) Lymph % (Auto) [place] % (Auto) Eos % (Auto) Baso % (Auto) Lymph # (Auto) [place] # (Auto) Eos # (Auto) Baso # (Auto) Abs Immat Gran (auto) Absolute Neuts (auto) Absolute Nucleated RBC Nucleated RBC % (auto) VBG pH VBG pCO2 VBG pO2 VBG HCO3 VBG O2 Saturation VBG Base Excess Anion Gap 20 Estim Creat Clear Calc 121.5 Estimated GFR > 60 POC Glucose Random Glucose 168 H Estimat Average Glucose Hemoglobin A1c % Lactic Acid 6.0 H* Lactic Acid F/U @ 2Hr 5.9 H* 6.4 H* Lactic Acid F/U @ 4Hr Calcium 8.6 Magnesium Total Bilirubin 0.3 AST 32 H ALT 24 Alkaline Phosphatase 100 C-Reactive Protein 0.14 Total Protein 7.1 Albumin 4.1 Lipase 7 L Urine Color Yellow Urine Appearance Clear Urine pH 5.5 Ur Specific [place] 1.020 Urine Protein Trace Urine Glucose (UA) Negative Urine Ketones 15 Urine Blood Negative Urine Nitrite Negative Ur Leukocyte Esterase Trace H Urine RBC 0-2 Urine WBC 6-10 Ur Squamous Epith Cells 11-20 Urine Bacteria 1+ Hyaline Casts 6-10 Urine Opiates Screen Not Detected Ur Buprenorphine Scrn Not Detected Ur Oxycodone Screen Not Detected Urine Methadone Screen Not Detected Urine Fentanyl Screen Not Detected Ur Barbiturates Screen POSITIVE H Ur Phencyclidine Scrn POSITIVE H Ur Amphetamines Screen Not Detected U Benzodiazepines Scrn POSITIVE H Urine Cocaine Screen Not Detected U Marijuana (THC) Screen Not Detected 09/15/25 09/16/25 09/16/25 22:21 02:15 05:30 MCV 87.3 MCH 30.0 MCHC 34.4 RDW 12.0 Plt Count 270 D MPV 9.4 Immature Gran % (Auto) 0.3 Neut % (Auto) 70.0 Lymph % (Auto) 22.3 [place] % (Auto) 5.3 Eos % (Auto) 1.8 Baso % (Auto) 0.3 Lymph # (Auto) 2.7 [place] # (Auto) 0.6 Eos # (Auto) 0.2 Baso # (Auto) 0.0 Abs Immat Gran (auto) 0.04 H Absolute Neuts (auto) 8.4 H Absolute Nucleated RBC 0.000 Nucleated RBC % (auto) 0.0 VBG pH 7.59 H VBG pCO2 14 VBG pO2 168 VBG HCO3 14 L VBG O2 Saturation 99.0 VBG Base Excess -3.8 Anion Gap 15 Estim Creat Clear Calc 121.5 Estimated GFR > 60 POC Glucose Random Glucose 240 H Estimat Average Glucose 209 Hemoglobin A1c % 8.9 H Lactic Acid Lactic Acid F/U @ 2Hr Lactic Acid F/U @ 4Hr 4.4 H* Calcium 8.4 Magnesium 1.9 Total Bilirubin 0.9 AST 219 H ALT 60 H Alkaline Phosphatase 112 C-Reactive Protein Total Protein 6.8 Albumin 4.1 Lipase Urine Color Urine Appearance Urine pH Ur Specific [place] Urine Protein Urine Glucose (UA) Urine Ketones Urine Blood Urine Nitrite Ur Leukocyte Esterase Urine RBC Urine WBC Ur Squamous Epith Cells Urine Bacteria Hyaline Casts Urine Opiates Screen Ur Buprenorphine Scrn Ur Oxycodone Screen Urine Methadone Screen Urine Fentanyl Screen Ur Barbiturates Screen Ur Phencyclidine Scrn Ur Amphetamines Screen U Benzodiazepines Scrn Urine Cocaine Screen U Marijuana (THC) Screen 09/16/25 09/16/25 07:28 13:09 MCV MCH MCHC RDW Plt Count MPV Immature Gran % (Auto) Neut % (Auto) Lymph % (Auto) [place] % (Auto) Eos % (Auto) Baso % (Auto) Lymph # (Auto) [place] # (Auto) Eos # (Auto) Baso # (Auto) Abs Immat Gran (auto) Absolute Neuts (auto) Absolute Nucleated RBC Nucleated RBC % (auto) VBG pH VBG pCO2 VBG pO2 VBG HCO3 VBG O2 Saturation VBG Base Excess Anion Gap Estim Creat Clear Calc Estimated GFR POC Glucose 237 H 187 H Random Glucose Estimat Average Glucose Hemoglobin A1c % Lactic Acid Lactic Acid F/U @ 2Hr Lactic Acid F/U @ 4Hr Calcium Magnesium Total Bilirubin AST ALT Alkaline Phosphatase C-Reactive Protein Total Protein Albumin Lipase Urine Color Urine Appearance Urine pH Ur Specific [place] Urine Protein Urine Glucose (UA) Urine Ketones Urine Blood Urine Nitrite Ur Leukocyte Esterase Urine RBC Urine WBC Ur Squamous Epith Cells Urine Bacteria Hyaline Casts Urine Opiates Screen Ur Buprenorphine Scrn Ur Oxycodone Screen Urine Methadone Screen Urine Fentanyl Screen Ur Barbiturates Screen Ur Phencyclidine Scrn Ur Amphetamines Screen U Benzodiazepines Scrn Urine Cocaine Screen U Marijuana (THC) Screen Microbiology Microbiology Results: Microbiology 09/15/25 Unknown Urine Culture - Preliminary Urine clean catch - Clean Catch Midstream Culture too young to evaluate. Quality Stroke Does the patient have a stroke diagnosis?: No VTE Prior VTE?: No VTE Risk Level:: Medical - moderate - high VTE Device Contraindication: N/A - Device Ordered VTE Drug Contraindication: N/A - Med Ordered
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
[2025-09-16 17:37] LABS: Glucose, Whole Blood 259 mg/dL (60-115)
[2025-09-16 18:35] LABS: Glucose, Whole Blood 248 mg/dL (60-115)
--- NOTE | 2025-09-16 19:42 | PC.NURSE ---
Report received and care assumed at 1900. Pt noted to be tearful, crying out in pain in the hallway to previous RN who was heading into the room to medicate with insulin per JAN. Upon RN's arrival to bedside the pt is found sitting in her stretcher awake, alert, with no cardiac monitoring in place, IVF infusing without s/s of complications noted to insertion site. The pt reports continued 10/10 abdominal pain that goes through to her back without help from previous pain medication administration. The pt is aware that her current PRN frequency has changed from every 3 to every4 hours per MD order. She asks questions pertaining to whether or not she will be going upstairs and to which room she will be going to, educated on plan for admission but room assignment being unknown at this time. She was placed back on the cardiac/vascular sonographer, shown how to properly disconnect herself from the monitor rather than removing leads from her chest. The pt was noted to nod off while RN discussing plan for review of the chart to try and obtain further information pertaining to her pain medication as she states the previous nurse told her she would not be able to get anymore medication at 2300.
[2025-09-16 19:47] LABS: Alanine Aminotransferase 56 U/L (0-31); Albumin Level 3.8 g/dL (3.5-5.0); Alkaline Phosphatase 122 U/L (39-117); Anion Gap 11 (12-20); Aspartate Amino Transferase 93 U/L (5-31); Blood Urea Nitrogen 5 mg/dL (9-16); Calcium 7.9 mg/dL (8.4-10.2); Carbon Dioxide 24 mmol/L (22-29); Chloride 105 mmol/L (96-108); Creatinine Clr Calc Pharmacy 130.3; Estimated Glomerular Filt Rate > 60; Lipase 5 U/L (8-78); Potassium 3.8 mmol/L (3.3-5.1); Sodium 136 mmol/L (135-145); Total Protein 6.2 g/dL (6.5-8.0)
[2025-09-16 20:48] LABS: Glucose, Whole Blood 203 mg/dL (60-115)
[2025-09-17 00:58] VITALS: BMI 26.3
[2025-09-17 01:12] VITALS: BP 121/68; PULSE 62; RESP 17; TEMP 36.5; O2SAT 99
[2025-09-17 01:18] LABS: Glucose, Whole Blood 127 mg/dL (60-115)
[2025-09-17 03:32] VITALS: BP 114/78; PULSE 53; RESP 16; TEMP 36.7; O2SAT 98
[2025-09-17 07:32] VITALS: BP 139/88; PULSE 69; RESP 20; TEMP 36.9; O2SAT 100
[2025-09-17 08:03] LABS: Glucose, Whole Blood 228 mg/dL (60-115)
[2025-09-17] MEDS: Thiamine HCL 100 MG in 0.9 % Sodium Chloride 100 ML 202 MG IV (08:10)
[2025-09-17 11:12] VITALS: BP 105/66; PULSE 68; RESP 20; TEMP 36.6; O2SAT 98
[2025-09-17 11:44] LABS: Glucose, Whole Blood 194 mg/dL (60-115)
[2025-09-17 13:41] LABS: UPreg QC Valid YES
--- NOTE | 2025-09-17 14:38 | PM.DS ---
DS: Providers Provider Date of Service: 09/17/25 Date of admission: 09/16/25 01:52 Date of discharge: 09/17/25 Primary care physician: Unknown Physician Consults: 09/16/25 02:00 Addiction Medicine Provider Routine Consulting Provider: Addiction Covering Reason for consultation: Alcohol abuse, PCP positive Has provider been notified: No 09/17/25 09:26 Consult to Gastroenterology Routine Consulting Provider[place] [facility] Reason for consultation: ABD PAIN Has provider been notified: No 09/17/25 13:58 Consult to General Surgery Routine Consulting Provider: [facility] Reason for consultation: acute cholecystitis Has provider been notified: No Attending physician on discharge: Asif Trejo Discharging clinician: Asif Trejo DS: Diagnosis Discharge Diagnosis (1) Alcohol use disorder: Status: Acute DS: Summary Hospital Course Hospital Course: HPI: 29 y/o is a 29 years old woman with past medical history significant for bipolar disorder, alcohol abuse and diabetes mellitus on metformin presents to the emergency department complaining of right upper quadrant abdominal pain, nausea and vomiting. This information was obtained from ED provider as the patient is currently very intoxicated and sedated by medications given in the emergency department. She was found to have normal anion gap metabolic acidosis with marked elevated lactic acid. Blood workup remarkable for mild leukocytosis of 11.2. Renal function is stable and glucose is 168. LFT are essentially normal except for mild elevation of AST. Beta hydroxybutyrate is 0.11. And urinalysis is remarkable for ketones 15. It did showed WBC 6-10 and trace leukocyte steroids. Squamous cells 11-20. Toxicology is positive for barbiturates, PCP and benzos. ETOH level is 380. Abdominal pelvis CT scan showed cholelithiasis with mild gallbladder wall thickening. ED tx: Zofran 4 mg IV, Maalox 30 mL p.o., LR 2 L bolus, Ativan 2 mg p.o., Valium 15 mg IV total. Hospital course: 29 y/o woman who presents to the emergency department with: Alcohol withdrawal: Seems to be improving significantly with phenobarb protocol. Urine toxicology also positive for phencyclidine. Patient was strongly advised to abstain from alcohol as well as phencyclidine Non-anion gap metabolic acidosis likely multifactorial: Lactic acidosis due to alcohol intoxication and metformin use; and alcoholic ketoacidosis. IV fluids. Seems to be improving. Cholelithiasis. ?Cholecystitis. LFTs and lipase are normal. ct abd:Cholelithiasis with mild gallbladder wall thickening. Correlate with LFTs and consider right upper quadrant ultrasound for further evaluation. abd us done shows:Cholelithiasis with associated findings suggesting possible acute cholecystitis.Mildly dilated common bile duct. WBC 12, urine preganacy test negative . LFT and alk-phos somewhat improving Patient was advised stay for treatment of possible acute cholecystitis-for IV antibiotics as well as surgical evaluation, patient refuses and wants to leave against medical advice, alert oriented x3-risk of leaving against medical advice discussed with her in detail length including worsening of cholecystitis, sepsis, even . Patient wants to take p.o. antibiotic, so we added Augmentin. Also told to go to nearest emergency room get medical attention. Patient could able to understand the risks and able to repeat back. Staff was present during conversation. Assessment and plan coordination time spent 50 minute. Patient understand and in agreement with the above plan, all questions answered. Staff was present during conversation. Of note: Patient's father was also present during that time. Time Attestation Total time managing care of this patient today: 50 mintues. Discharge Coordination Time (in mins): 50 minute Quality: Safe Use of Opioids Does Pt have an Active Cancer Diagnosis on the Problem List?: No Quality: Stroke Does the patient have a stroke diagnosis?: No Physical Exam Exam: Exam: Refused Vital Signs: Vital Signs: Last Vital Signs Temp 97.8 F 09/17/25 11:12 Pulse 68 09/17/25 11:12 Resp 20 09/17/25 11:12 BP 105/66 09/17/25 11:12 Pulse Ox 98 09/17/25 11:12 O2 Del Method Room Air 09/17/25 11:12 BMI result Body Mass Index 26.3 DS: Data Data Completed and Pending Completed studies during hospitalization [Text1]: Procedures Detoxification Services for Substance Abuse Treatment (08/14/25) Insertion of Infusion Device into Upper Vein, Percutaneous Approach (06/20/25) Labs on day of discharge: Laboratory Results - last 24 hr 09/16/25 09/16/25 09/16/25 17:34 18:26 19:06 Sodium 136 Potassium 3.8 Chloride 105 Carbon Dioxide 24 Anion Gap 11 L BUN 5 L Creatinine 0.55 Estim Creat Clear Calc 130.3 Estimated GFR > 60 POC Glucose 259 H 248 H Random Glucose 255 H Calcium 7.9 L Total Bilirubin 0.5 AST 93 H ALT 56 H Alkaline Phosphatase 122 H Total Protein 6.2 L Albumin 3.8 Lipase 5 L Urine Test 09/16/25 09/17/25 09/17/25 20:45 00:39 07:31 Sodium Potassium Chloride Carbon Dioxide Anion Gap BUN Creatinine Estim Creat Clear Calc Estimated GFR POC Glucose 203 H 127 H 228 H Random Glucose Calcium Total Bilirubin AST ALT Alkaline Phosphatase Total Protein Albumin Lipase Urine Test 09/17/25 09/17/25 11:11 13:30 Sodium Potassium Chloride Carbon Dioxide Anion Gap BUN Creatinine Estim Creat Clear Calc Estimated GFR POC Glucose 194 H Random Glucose Calcium Total Bilirubin AST ALT Alkaline Phosphatase Total Protein Albumin Lipase Urine Test NEGATIVE Imaging CT scan - abdomen: My impression: CTA abdomen:Cholelithiasis with mild gallbladder wall thickening. Correlate with LFTs and consider right upper quadrant ultrasound for further evaluation. Abdominal ultrasound:Impression: 1. Cholelithiasis with associated findings suggesting possible acute cholecystitis. 2. Mildly dilated common bile duct. CT chest: Unremarkable CT chest. Discharge Plan Discharge Anticipated Discharge Date/Time: 09/17/25 14:28 Patient Disposition: Left Against Medical Advice Discharge Diagnosis: Acute cholecystitis , alcohol withdrawal Referrals: Physician,Unknown J [Primary Care Provider, Medical] - 1 Week Discharge Medications: New amoxicillin-pot clavulanate 875-125 mg Tablet 875 tab PO Q12H Qty: 13 0RF Continued hydroxyzine pamoate 100 mg capsule 100 mg PO QID PRN (Reason: anxiety) 30 Days Qty: 120 0RF clonidine HCl 0.1 mg tablet 0.1 mg PO TID 30 Days Qty: 90 0RF sucralfate 1 gram Tablet 1 g PO BIDAC 30 Days Qty: 60 0RF melatonin 3 mg Tablet 6 mg PO BEDTIME PRN (Reason: Insomnia) 30 Days Qty: 60 0RF omeprazole 40 mg Capsule,Delayed Release(Dr/Ec) 40 mg PO DAILY@0630 30 Days Qty: 30 0RF gabapentin 800 mg tablet 800 mg PO TID 30 Days Qty: 90 0RF trazodone 100 mg Tablet 100 mg PO BEDTIME PRN (Reason: Insomnia) 30 Days Qty: 30 0RF glipizide 2.5 mg Tablet Extended Release 24hr 2.5 mg PO DAILY 30 Days Qty: 30 0RF oxcarbazepine 600 mg tablet 600 mg PO BID 30 Days Qty: 60 0RF risperidone 1 mg tablet 1 mg PO BID 30 Days Qty: 60 0RF metformin 750 mg tablet extended release 24 hr 750 mg PO BEDTIME 30 Days Qty: 30 0RF acamprosate 333 mg Tablet,Delayed Release (Dr/Ec) 333 mg PO TID 30 Days Qty: 90 0RF Discharge Orders: Discharge Order (Routine); Ordered 09/17/25 Ordered By: Asif Trejo Diet: Advance to usual diet Activity on Discharge: As tolerated Print Language: Polish Care Plan Goals: augmentin as prescribed left ama -risk explained to her detail. Health Concerns: as above. Plan of Treatment: as above Assessment: as above Discharge Date/Time: 09/17/25 14:30
--- NOTE | 2025-09-17 15:14 | MHC.RECOVRN ---
Patient had a positive screen for unhealthy alcohol use on admission, subsequently, met with pt to discuss alcohol use, recovery supports, and concerns related to increased risk of alcohol related problems.? Patient reports consuming several nips of vodka daily, ?because I don?t know how to cope and get overwhelmed easily?. She states she does not have custody of her children and they are residing with a family friend who wants to seek adoption. Pt reports this is triggering and adds to her ongoing depression.? Pt reports she is supposed to take an antidepressant but has not ?for quite some time?. Additionally pt reports diagnoses of Bipolar disorder and Schizophrenia. She reports she has not taken medication for either in ?I don?t even know how long? When asked who prescribes her medication she responds ?[facility]?. Pt educated that [facility] prescribes medication while she is admitted but she should? follow up with providers in the community for continued prescriptions. Pt also denies being connected with a therapist or other community services. Pt provided information on psychiatrists and therapists in the area and steps to becoming a new pt. Pt verbalized her understanding.?? Pt reports previously utilizing Naltrexone for but states it was ineffective and is not interested in trying another medication for AUD at this time.? Discussed how alcohol use has impacted health, including negative impact on mental health and overall physical well being.? Discussed risk and reduction strategies including drinking below the recommended limit, establishing provides and a support system, and reaching out for help.?? Provided pt with written resources including information on inpatient and outpatient treatment, ROMARIO, harm reduction, recovery coaching, and pathways to recovery.?? Pt accepted a referral to [facility] for recovery coaching. She declines further intervention, ROMARIO, or outpatient appt for treatment related to AUD at this time.? Pt was provided with TW?s contact information if questions or concerns arise. Pt denies further questions or concerns at this time.?
--- NOTE | 2025-09-17 15:39 | PC.NURSE ---
left ama patient educated on the risks of leaving ama provider to bedside, insistent on leaving, educated father of patient as well as patient on what to watch for in regards to rachel and sent home on oral antibiotics. patient states she will return on friday for surgery
== END 2025-09-17 14:30 | disposition left against medical advice (07) | DRG 770 ==
LOC: HO.ED 09-16 01:39 → HO.EDOVER 09-16 01:56 → HO.IMC 09-17
PROVIDERS: Physician Assistant; Admitting Provider Internal Medicine; Emergency Provider Emergency Medicine; Visit Provider Internal Medicine
DX: F10.139 Alcohol abuse with withdrawal, unspecified (principal); K80.00 Calculus of gallbladder with acute cholecystitis without obstruction; E87.21 Acute metabolic acidosis; F17.210 Nicotine dependence, cigarettes, uncomplicated; Z71.6 Tobacco abuse counseling; Y90.8 Blood alcohol level of 240 mg/100 ml or more; F10.129 Alcohol abuse with intoxication, unspecified; F31.9 Bipolar disorder, unspecified; E11.9 Type 2 diabetes mellitus without complications; Z79.4 Long term (current) use of insulin; Z79.899 Other long term (current) drug therapy
CPT/HCPCS: 36415; 71260; 74177; 76705; 80048; 80053; 80076; 80307; 81001; 81025; 82010; 82803; 82947; 83036; 83605; 83690; 83735; 85025; 86140; 87086; 87147; 99285; J1171; J1650; J2405; J2470; J2560; J3360; J3411; J7120; Q9967; S9485

== ENCOUNTER → 2025-09-15 22:38 | Outpatient (BNV) | payer MEDICAID, SELFPAY | PROVIDERS: Emergency Provider Emergency Medicine; Visit Provider Radiology Diagnostic Radiology | DX: K80.20 Calculus of gallbladder without cholecystitis without obstruction (principal); D72.829 Elevated white blood cell count, unspecified; E87.20 Acidosis, unspecified | CPT/HCPCS: 71260; 74177 ==

== ENCOUNTER 2025-09-16 01:52 | Outpatient (BNV) | payer MEDICAID, SELFPAY | END 2025-09-16 16:54 | PROVIDERS: Admitting Provider Internal Medicine; Emergency Provider Emergency Medicine; Visit Provider Radiology Diagnostic Radiology | DX: K80.20 Calculus of gallbladder without cholecystitis without obstruction (principal) | CPT/HCPCS: 76705 ==

== ENCOUNTER → 2025-09-16 01:52 | Outpatient (BNV) | payer OTHER, SELFPAY | PROVIDERS: Admitting Provider Internal Medicine; Emergency Provider Emergency Medicine; Visit Provider Nurse Practitioner Psychiatric/Mental Health | DX: F10.90 Alcohol use, unspecified, uncomplicated (principal) | CPT/HCPCS: 99231 ==

== ENCOUNTER → 2025-09-16 01:52 | Outpatient (BNV) | payer MEDICAID, SELFPAY | PROVIDERS: Admitting Provider Internal Medicine; Emergency Provider Emergency Medicine; Visit Provider Internal Medicine | DX: F10.929 Alcohol use, unspecified with intoxication, unspecified (principal); E87.20 Acidosis, unspecified | CPT/HCPCS: 99223; 99239; 99499 ==

== ENCOUNTER 2025-10-18 18:39 | Emergency (ER) | payer MEDICAID, SELFPAY ==
[2025-10-18 18:52] VITALS: BP 152/90
[2025-10-18 18:53] VITALS: BP 121/80; PULSE 94; RESP 19; TEMP 36.9; O2SAT 98; BMI 28.9
[2025-10-18 19:04] LABS: Glucose, Whole Blood 334 mg/dL (60-115)
--- NOTE | 2025-10-18 19:26 | ED_ITS ---
HPI - Alcohol General Chief Complaint: ETOH/Substance Use Stated Complaint: ETOH, has not eaten x days per EMS Time Seen by Provider: 10/18/25 19:17 Source: patient Mode of arrival: EMS Limitations: no limitations History of Present Illness ED Provider: Dr. Bert Garcia HPI narrative: 29-year-old female with a history of alcohol use disorder, diabetes mellitus,pancreatitis, PTSD, polysubstance use disorder, bipolar disorder who presents emergency department for evaluation of abdominal pain and alcohol use disorder. Patient was brought to emergency department by ambulance, EMS obtained the following information from patient's father. Patient has been drinking alcohol for 3 days, not eating or drinking. Patient was combative with the EMS and was initially combative on arrival but nurses were able to redirect the patient and calm the patient down. Patient told me that she has been having constant, left-sided, 10/10, abdominal pain for 2 days. She states the pain is a sharp, constant pain and feels like her pancreatitis pain. Patient states she has been drinking several pt of whiskey per day. She denied drug use. Patient states she has had nausea, vomiting and diarrhea. She denied fever or chills. Patient was hospitalized from 09/16/2024 until 09/17/2024 for acute alcohol use disorder with metabolic acidosis. Related Data Previous Rx's ?Medication ?Instructions ?Recorded acamprosate 333 mg tablet,delayed 333 mg PO TID 30 day s #90 tabs 08/19/25 release clonidine HCl 0.1 mg tablet 0.1 mg PO TID 30 days #90 tabs 08/19/25 gabapentin 800 mg tablet 800 mg PO TID 30 days #90 ta bs 08/19/25 glipizide 2.5 mg tablet, extended 2.5 mg PO DAILY 30 d ays #30 tabs 08/19/25 release 24 hr hydroxyzine pamoate 100 mg capsule 100 mg PO QID PRN a nxiety 30 days 08/19/25 #120 caps melatonin 3 mg tablet 6 mg (2 x 3 mg) PO BEDTIME P RN 08/19/25 Insomnia 30 days #60 tabs metformin 750 mg tablet,extended 750 mg PO BEDTIME 30 days #30 tabs 08/19/25 release 24 hr omeprazole 40 mg capsule,delayed 40 mg PO DAILY@0630 3 0 days #30 08/19/25 release caps oxcarbazepine 600 mg tablet 600 mg PO BID 30 days #60 tabs 08/19/25 risperidone 1 mg tablet 1 mg PO BID 30 days #60 tabs 08/19/25 sucralfate 1 gram tablet 1 g PO BIDAC 30 days #60 tab s 08/19/25 trazodone 100 mg tablet 100 mg PO BEDTIME PRN Insomn ia 30 08/19/25 days #30 tabs Allergies Allergy/AdvReac Type Severity Reaction Status Date / Time SEAFOOD Allergy Unknown UNK Uncoded 10/18/25 19:00 Review of Systems 2 Review of Systems: Yes all other systems are reviewed and are negative [facility] Past Medical History Medical History (Updated 10/18/25 @ 21:20 by Bert Garcia MD) Alcohol use disorder PTSD (post-traumatic stress disorder) Polysubstance use disorder Bipolar disorder Social History Social History Household Members: Children Household Members Other:: 3 Housing: House Do you presently have visiting nurse or other home services: No Alcohol intake: current Alcohol intake frequency: 3 or more drinks per day Alcohol type: hard liquor Comment: sitter Patient Tobacco Use Status: Current someday Tobacco user Tobacco use type: Cigarette Cigarettes Per Day: 7 e-Cigarette/Vaping Use: Currently Using Second Hand Smoke Exposure: No Substance Use Type: Opiates and Other Advance Directives: No Advance Directives Information Provided: No Do you have a plan to hurt others: No Plan service: No Sexual orientation: Straight/Heterosexual Physical Exam ED Vital Signs: Vital Signs - 24 hr 10/18/25 18:53 10/18/25 20:16 Temperature 98.4 F 97.8 F Pulse Rate 94 85 Respiratory Rate 19 16 Blood Pressure 121/80 153/85 H Pulse Oximetry 98 97 Oxygen Delivery Method Room Air Room Air BMI result Body Mass Index 28.9 Vital signs were normal Exam: General: Awake, alert, in moderate distress secondary to her abdominal pain Head: Normocephalic, atraumatic EENT: PERRL, sclera and conjunctiva are normal, mouth with no erythema or exudates Neck: Supple, no adenopathy Lung: breath sounds symmetric, no wheezing, no rales and no rhonchi Chest: symmetric movement, nontender Heart: regular rate and rhythm, normal S1, S2 no murmurs or rubs Abdomen: soft, mild epigastric tenderness, moderate to severe diffuse abdominal tenderness, normoactive bowel sounds Back: no vertebral tenderness, no CVAT Extremities: no deformities, moves all extremities symmetrically, no edema Neuro: Awake, alert, oriented, normal speech, cranial nerves 2-12 intact, moves all extremities symmetrically Medical Decision Making Medical Decision Making MDM Narrative: 29-year-old female with a history of alcohol use disorder, diabetes mellitus,pancreatitis, PTSD, polysubstance use disorder, bipolar disorder who presents emergency department for evaluation of abdominal pain and alcohol use disorder. Patient was brought to emergency department by ambulance, EMS obtained the following information from patient's father. Patient has been drinking alcohol for 3 days, not eating or drinking. Patient was combative with the EMS and was initially combative on arrival but nurses were able to redirect the patient and calm the patient down. Patient told me that she has been having constant, left-sided, 10/10, abdominal pain for 2 days. She states the pain is a sharp, constant pain and feels like her pancreatitis pain. Patient states she has been drinking several pt of whiskey per day. She denied drug use. Patient states she has had nausea, vomiting and diarrhea. She denied fever or chills. vital signs were normal. Abdominal exam revealed mild epigastric tenderness with moderate diffuse abdominal tenderness. Differential diagnosis: Includes but is not limited to Pancreatitis, diverticulitis, gastritis, alcohol intoxication, anemia, electrolyte abnormalities Course: 20:11 I ordered a laboratory evaluation, Dilaudid 1 mg IV and Benadryl 50 mg IV. Patient is also was treated with normal saline IV x1 L 20:54 My interpretation patient's laboratory evaluation is as follows: WBC elevated 10,900. H and H were elevated at 16.1 and 47.4 - patient may be hemoconcentrated. Bicarb low 14 with a an elevated anion gap of 22- this could be secondary to alcoholic or starvation ketosis. I do not think that she has diabetic ketoacidosis. Glucose elevated 326. LFTs were normal. Lipase was normal. Alcohol level was elevated at 333 21:04 the patient is still complaining of abdominal pain but appears to be in less distress. Patient's exam did reveal epigastric tenderness. I suspect that the patient's pain is more consistent with gastritis as opposed to pancreatitis given her normal lipase. Patient was ordered to get Maalox 30 cc and viscous lidocaine 10 cc orally. I ordered LR 1 L IV. Given her elevated alcohol level, the patient will be placed in physician observation and we will continue to monitor until she is sober or can obtain a sober ride home. At the end of my shift, patient's care was turned over to my colleague, Dr. Gómez. 10:05 PM 10/18/2025 (Dr. Thu Gómez, D.O.) patient is ambulatory in the emergency department with clear speech, steady gait. She has capacity to make decisions and is requesting discharge at this time. I did medicate her with Haldol and Benadryl due to severe abdominal pain. She is feeling improved and wants to go home. She has a sober ride. At this point I feel she is stable for discharge. Discussed possibility of worsening of her condition as well as strict return precautions. Discharged in stable condition. Differential Diagnosis Differential Diagnoses: The differential diagnosis associated with the presentation includes ( See above) Admission/Observation Consideration of admission/observation: Escalation of care including admission/observation considered ( yes) Lab Data MDM Lab Attestation statement: I reviewed the patient's lab results. 10/18/25 20:11 10/18/25 20:11 Labs: Lab Results 10/18/25 10/18/25 Range/Units 19:00 20:11 WBC 10.9 H (4.8-10.8) X10*3/uL RBC 5.40 D (4.20-5.50) X10*6/uL Hgb 16.1 H D (12.0-16.0) g/dl Hct 47.4 H D (37.0-47.0) % MCV 87.8 (80.0-98.0) fL MCH 29.8 (27.0-33.0) pg MCHC 34.0 (31.0-35.0) g/dl RDW 12.5 (11.0-16.0) % Plt Count 333 (160-400) X10*3/uL MPV 9.0 L (9.4-12.3) fL Immature Gran % (Auto) 0.3 (0.0-0.4) % Neut % (Auto) 45.2 (45-73) % Lymph % (Auto) 50.0 H (20-40) % Weston % (Auto) 2.5 (2-11) % Eos % (Auto) 1.4 (0-4) % Baso % (Auto) 0.6 (0-2) % Lymph # (Auto) 5.5 H (1.2-4.9) X10*3/uL Weston # (Auto) 0.3 (0.1-1.2) X10*3/uL Eos # (Auto) 0.2 (0.0-0.4) X10*3/uL Baso # (Auto) 0.1 (0.0-0.2) X10*3/uL Abs Immat Gran (auto) 0.03 (0.00-0.03) X10*3/uL Absolute Neuts (auto) 4.9 (2.0-8.3) x10*3/uL Absolute Nucleated RBC 0.000 (0.0-0.012) X10*3/uL Nucleated RBC % (auto) 0.0 (0.0-0.2) /100WBC Smear Tech's Comments VERIFIED Sodium 137 (135-145) mmol/L Potassium 4.0 (3.3-5.1) mmol/L Chloride 105 (96-108) mmol/L Carbon Dioxide 14 L (22-29) mmol/L Anion Gap 22 H (12-20) BUN 6 L (9-16) mg/dL Creatinine 0.69 (0.5-1.4) mg/dL Estim Creat Clear Calc 102.9 Estimated GFR > 60 POC Glucose 334 H (60-115) mg/dL Random Glucose 326 H (60-115) mg/dL Calcium 9.6 D (8.4-10.2) mg/dL Total Bilirubin 0.2 (0.0-1.0) mg/dL AST 23 (5-31) U/L ALT 22 (0-31) U/L Alkaline Phosphatase 112 (39-117) U/L Total Protein 8.5 H (6.5-8.0) g/dL Albumin 5.1 H (3.5-5.0) g/dL Lipase 11 (8-78) U/L Ethyl Alcohol 333 H* mg/dL Chronic Conditions Patient?s care impacted by: Diabetes and Other ( Polysubstance use disorder, alcohol use disorder) Medications Administered Discontinued Medications Generic Name Dose Route Start Last Admin Trade Name Bladimirq PRN Reason Stop Dose Admin Al Hydroxide/Mg Hydroxide 30 ml 10/18/25 21:02 10/18/25 21:10 Magnesium Hydrox/Alum Hydrox 30 Ml Oral.Susp PO 10/18/25 21:03 30 ml ONCE STA Administration Diphenhydramine HCl 50 mg 10/18/25 19:24 10/18/25 19:46 Diphenhydramine Hcl 50 Mg/Ml Vial IVPUSH 10/18/25 19:25 50 mg ONCE STA Administration Diphenhydramine HCl 25 mg 10/18/25 21:27 10/18/25 21:39 Diphenhydramine Hcl 50 Mg/Ml Vial IVPUSH 10/18/25 21:28 25 mg ONCE ONE Administration Haloperidol Lactate 5 mg 10/18/25 21:27 10/18/25 21:39 Haloperidol Lactate 5 Mg/Ml Vial IVPUSH 10/18/25 21:28 5 mg ONCE ONE Administration Hydromorphone HCl 1 mg 10/18/25 19:24 10/18/25 19:46 Hydromorphone Hcl 1 Mg/Ml Syringe IVPUSH 10/18/25 19:25 1 mg ONCE STA Administration Protocol Sodium Chloride 1,000 mls @ 999 mls/hr 10/18/25 19:24 10/18/25 22:01 Ns IV 10/18/25 20:24 Infused .Q1H1M STA Infusion Lactated Ringer's 1,000 mls @ 999 mls/hr 10/18/25 21:02 10/18/25 22:01 Lr IV 10/18/25 22:02 Infused .Q1H1M STA Infusion Lidocaine HCl 10 ml 10/18/25 21:02 10/18/25 21:10 Lidocaine Hcl Viscous 2 % 15 Ml Solution PO 10/18/25 21:03 10 ml ONCE ONE Administration Discharge Plan Discharge Clinical Impression: Abdominal pain, Acute alcohol intoxication, Acute dehydration Patient Disposition: Home, Self-Care Instructions: Dehydration (ED) Additional Instructions: Alcohol use disorder You were seen in the Emergency Department today for treatment of alcohol use disorder.? You may have been given medications to help with your withdrawal symptoms.? Please do not drink alcohol with them. This is very dangerous and can cause respiratory depression or other adverse reactions depending on the medication. If you would like to cut down or stop your alcohol use please consider calling our outpatient Addiction Treatment office:? [facility] (M- 9a-5p) [address] [place] [id number] You have also been given a list of treatment providers in the area that can assist as well.? If you experience seizures, vomiting blood, black stools, falls, severe headache, chest pain, fevers, trouble breathing, hallucinations or any other concerns you need to call 911 or seek immediate care. Please stay hydrated. Prescriptions: No Action hydroxyzine pamoate 100 mg capsule 100 mg PO QID PRN (Reason: anxiety) 30 Days Qty: 120 0RF clonidine HCl 0.1 mg tablet 0.1 mg PO TID 30 Days Qty: 90 0RF sucralfate 1 gram Tablet 1 g PO BIDAC 30 Days Qty: 60 0RF melatonin 3 mg Tablet 6 mg PO BEDTIME PRN (Reason: Insomnia) 30 Days Qty: 60 0RF omeprazole 40 mg Capsule,Delayed Release(Dr/Ec) 40 mg PO DAILY@0630 30 Days Qty: 30 0RF gabapentin 800 mg tablet 800 mg PO TID 30 Days Qty: 90 0RF trazodone 100 mg Tablet 100 mg PO BEDTIME PRN (Reason: Insomnia) 30 Days Qty: 30 0RF glipizide 2.5 mg Tablet Extended Release 24hr 2.5 mg PO DAILY 30 Days Qty: 30 0RF oxcarbazepine 600 mg tablet 600 mg PO BID 30 Days Qty: 60 0RF risperidone 1 mg tablet 1 mg PO BID 30 Days Qty: 60 0RF metformin 750 mg tablet extended release 24 hr 750 mg PO BEDTIME 30 Days Qty: 30 0RF acamprosate 333 mg Tablet,Delayed Release (Dr/Ec) 333 mg PO TID 30 Days Qty: 90 0RF Print Language: Azeri
[2025-10-18 20:16] VITALS: BP 153/85; PULSE 85; RESP 16; TEMP 36.6; O2SAT 97
[2025-10-18 20:19] LABS: Hematocrit 47.4 % (37.0-47.0); Hemoglobin 16.1 g/dl (12.0-16.0); Imm Gran Abs Auto 0.03 X10*3/uL (0.00-0.03); Imm Gran Pct Auto 0.3 % (0.0-0.4); Lymphocytes Absolute Auto 5.5 X10*3/uL (1.2-4.9); MANUAL DIFF FLAG SCAN; Mean Corpuscular HGB Conc 34.0 g/dl (31.0-35.0); Mean Corpuscular Hemoglobin 29.8 pg (27.0-33.0); Mean Corpuscular Volume 87.8 fL (80.0-98.0); NRBC Abs Auto 0.000 X10*3/uL (0.0-0.012); NRBC Pct Auto 0.0 /100WBC (0.0-0.2); Platelet Count 333 X10*3/uL (160-400); Red Blood Count 5.40 X10*6/uL (4.20-5.50); SCAN SMEAR FLAG 1; White Blood Count 10.9 X10*3/uL (4.8-10.8)
[2025-10-18 20:33] LABS: Alanine Aminotransferase 22 U/L (0-31); Albumin Level 5.1 g/dL (3.5-5.0); Alkaline Phosphatase 112 U/L (39-117); Anion Gap 22 (12-20); Aspartate Amino Transferase 23 U/L (5-31); Blood Urea Nitrogen 6 mg/dL (9-16); Calcium 9.6 mg/dL (8.4-10.2); Carbon Dioxide 14 mmol/L (22-29); Chloride 105 mmol/L (96-108); Creatinine Clr Calc Pharmacy 102.9; Estimated Glomerular Filt Rate > 60; Lipase 11 U/L (8-78); Potassium 4.0 mmol/L (3.3-5.1); Sodium 137 mmol/L (135-145); Total Protein 8.5 g/dL (6.5-8.0)
[2025-10-18] MEDS: Magnesium Hydrox/Alum Hydrox 30 ML ORAL.SUSP PO (21:10)
[2025-10-18] MEDS: Lidocaine HCl Viscous 2 % 15 ML SOLUTION 10 ML PO (21:10)
[2025-10-18] MEDS: Lactated Ringers 1,000 ML 999 ML IV (21:15)
[2025-10-18 22:06] VITALS: BP 153/85; PULSE 85; RESP 16; TEMP 36.6; O2SAT 97
--- OUTSIDE RECORDS SUMMARY | 2025-10-19 14:01 | XMS_ITS | Clinical Summary ---
Author Organization [facility] Address [address] [place] [address] Phone Care Team Providers Care Director Of Advertising Sales Name Role Phone StephenMichael MARKO Primary Care Provider [phone] Allergies Active Allergy Reactions Criticality Noted Date [...] Diagnosed Date Abdominal pain 07/20/2025 Alcoholic hepatitis ([facility] V28) 07/20/2025 Alcoholic pancreatitis 07/20/2025 Anxiety 07/20/2025 Current smoker 07/20/2025 Influenza 07/20/2025 Marijuana use 07/20/2025 Underweight 07/20/2025 Alcohol dependence, uncompli cated ([facility] V24, [facility] V28) 09/04/2023 Bipolar I disorder ([facility] V24, [facility] V28) Generalized anxiety disorder 09/04/2023 GERD with esophagitis 12/14/2022 Immunizations Immunization Administration Dates Next Due Influenza Quadrivalent, 0.5m l, preservative free (Fluarix; FluLaval; Fluzone) ages 6mo and older (Afluria) 3yo and older 12/01/2021 Tdap Tetanus diptheria acell ular pertussis (Boostrix; Adacel) 7yo and older 02/01/2020 Surgical History Surgery Date Site/Laterality Comments TONSILLECTOMY Medical History Medical History Date Comments Alcohol abuse DM (diabetes mellitus) ([facility] V24, [facility] V28 ) Asthma Social History Tobacco Use [...] 11/04/2022 Social Influencers of Health Screening 11/04/2022 HPV Vaccines (1 - 3-dose SCD M series) 2022 Depression Screening 12/01/2024 COVID-19 Vaccine (1 - 2024-2 6 season) 2025 Influenza Vaccine (#1) 2025 12/01/2021 DTaP,Tdap,and Td Vaccines (2 - Td or Tdap) 01/31/2030 02/01/2020 RSV Immunization Adult Patie nts (1 - 1-dose 75+ series) 2070 HIB Vaccines Aged Out No longer eligi [...] on patient's age to complete this topic Insurance [place] Advance Directives Documents on File Type Date Recorded Patient Hosted Services Analyst Expl anation Health Care Decision (hx) 08/01/2022 [...] (hx) 08/01/2022 AD MALIK DIRECTIVE Care Teams Director Of Advertising Sales Relationship Specialty Start Date End Date Michael Mitchell NP [address] [place] [address] PCP - General Family Medicine 07/26/25
--- OUTSIDE RECORDS SUMMARY | 2025-10-19 14:01 | XMS_ITS | Clinical Summary ---
Author Organization [employer] Address [address] [place] [address] Care Team Providers Care Threader Name Role Phone Unavailable Primary Care Provider Unavailabl e Social History Tobacco Use Types Packs/Day Years Used Date Smoking Tobacco: Never Assessed Comments Unknown Sex and Gender Information Value Date Recorded Sex Assigned at Not on file Legal Sex Female 9:28 PM EDT Gender Identity Not on file Sexual Orientation Not on file Plan of Treatment Health Maintenance Due Date Last Done Comments Depression Screening 1995 Lipid Panel 1995 SDOH Screening 1995 Disability Screening 1995 Alcohol/Substance Use Screening 2007 Tobacco Screening 2007 Family Planning (PISQ) 2010 HPV Vaccines (1 - 3-dose series) 2010 Hepatitis C Screening 2013 DTaP/Tdap/Td Vaccines (1 - Tdap) 2014 Hepatitis B Vaccines (1 of 3 - 19+ 3-dose series) 2014 Pneumococcal Vaccine: Pediat rics (0 to 5 Years) and At-Risk Patients (6 to 49) Years (1 of 2 - PCV) 2014 Pap Smear 2016 COVID-19 Vaccine (1 - 2024-2 6 season) 2025 Influenza Vaccine (#1) 2025 Zoster Vaccines (1 of 2) 2045 RSV Patients and Pa tients Aged 60 years or older (1 - 1-dose 75+ series) 2070 HIV Screening Completed 08/02/2025 HIB Vaccines Aged Out No longer [...] topic Meningococcal Vaccine Aged Out No mel julieht eligible based on patient's age to complete this topic RSV under 20 months Aged Out No longe r eligible based on patient's age to complete this topic Rotavirus Vaccines Aged Out No longer eligible based on patient's age to complete this topic
== END 2025-10-18 22:07 | disposition home or self-care (01) ==
PROVIDERS: Emergency Medicine Emergency Medical Services; Emergency Provider Emergency Medicine
DX: E86.0 Dehydration (principal); R10.9 Unspecified abdominal pain; F10.129 Alcohol abuse with intoxication, unspecified; Y90.8 Blood alcohol level of 240 mg/100 ml or more; E11.9 Type 2 diabetes mellitus without complications; Z91.013 Allergy to seafood
CPT/HCPCS: 36415; 80053; 80307; 82947; 83690; 85025; 96361; 96374; 96375; 96376; 99284; J1171; J1200; J1630; J7120

== ENCOUNTER 2025-10-18 23:34 | Inpatient (IN) | payer MEDICAID, SELFPAY ==
--- NOTE | ~2025-10-18 | US_ITS ---
EXAMINATION: US LESS THAN 14 WEEKS WITH TRANSVAGINAL HISTORY: rule out ectopic , ABD PAIN COMPARISON: There are no prior studies available for comparison. TECHNIQUE: Transabdominal and endovaginal real-time 2D victor-scale ultrasound was performed. FINDINGS: Uterus: The uterus is normal in size, measuring 8.3 x 3.5 x 4.9 cm. Myometrium has a normal echotexture. No fibroids are identified. Endometrium: The endometrial stripe measures 5 mm in thickness. No IUP is identified. Right ovary: The right ovary measures 2.9 x 2.3 x 3.0 cm. The right ovary is normal in size and echotexture. Left ovary: The left ovary measures 3.1 x 2.6 x 1.7 cm. The left ovary is normal in size and echotexture. Immediately adjacent to the left ovary, there is a 2.8 x 1.6 x 1.7 cm heterogeneous mass demonstrating peripheral vascularity. Findings are suspicious for an ectopic gestation. Pelvic fluid: none. US/US OB pelvic and transvaginal IMPRESSION: No IUP is identified. 2.8 x 1.6 x 1.7 cm heterogeneous left adnexal mass, highly suspicious for an ectopic gestation. Findings were discussed with Dr. Gelacio Toussaint by secure text message on 10/19/2025 at 2:30 PM. Electronically signed by: Maynor Mcclellan MD 10/19/2025 02:33 PM [facility]
--- NOTE | ~2025-10-18 | US_ITS ---
EXAMINATION: US ABDOMEN LIMITED CLINICAL INFORMATION: Right upper quadrant abdominal pain. Evaluate bile ducts and gallbladder. COMPARISON: Correlation made with CT abdomen and pelvis 09/15/2025. TECHNIQUE: Real-time imaging of the gallbladder and bile ducts was performed. FINDINGS: GALLBLADDER: Gallbladder demonstrates mobile intraluminal small gallstones. There are gallstones within the gallbladder neck. There is no sludge or significant wall thickening. There is no pericholecystic fluid collection. There was a negative sonographic Alvarenga's sign. COMMON BILE DUCT: Normal in caliber measuring 0.5 cm in diameter. FREE FLUID: None. US/US abdomen limited IMPRESSION: 1. Cholelithiasis without evidence of acute cholecystitis. Negative sonographic Alvarenga's sign. Of note, there are gallstones within the gallbladder neck. 2. No biliary ductal dilatation. Electronically signed by: Arslan Philip MD 10/19/2025 02:34 PM EST
[2025-10-18 23:45] VITALS: BP 118/80; BP 120/74; PULSE 77; PULSE 89; RESP 16; TEMP 36.6; O2SAT 96; O2SAT 98; BMI 23.0
--- NOTE | 2025-10-19 01:32 | ECG_ITS ---
Test Reason : ARRYTHMIA Blood Pressure : */* mmHG Vent. Rate : 88 BPM Atrial Rate : 88 BPM P-R Int : 112 ms QRS Dur : 78 ms QT Int : 386 ms P-R-T Axes : 9 55 42 degrees QTcB Int : 467 ms Normal sinus rhythm Normal ECG When compared with ECG of 13-Aug-2025 16:35, No significant change was found Referred By: Thu Gómez Electronically Signed By: NAOMY AMOR
[2025-10-19] MEDS: diazePAM 10 MG/2 ML CARTRIDGE IM (01:37)
[2025-10-19] MEDS: Lactated Ringers 1,000 ML 999 ML IV (02:53)
[2025-10-19 03:14] LABS: Venous Blood Gas Refer to POC result
[2025-10-19 03:16] LABS: VBG HCO3 18 mmol/L (22-26); VBG O2 % Saturation 100.0 %
[2025-10-19] MEDS: PHENobarbitaL sodium 130 MG/ML IM ONCE 260 MG IM (03:16)
[2025-10-19 03:19] LABS: Glucose, Whole Blood 235 mg/dL (60-115)
--- NOTE | 2025-10-19 03:40 | ED.ALCOHOL ---
HPI - Alcohol General Chief Complaint: ETOH/Substance Use Stated Complaint: etoh withdrawal, seizure Time Seen by Provider: 10/19/25 00:05 Source: patient, EMS, RN notes reviewed and old records reviewed Mode of arrival: EMS Limitations: no limitations History of Present Illness ED Provider: Insert HPI narrative: 29-year-old female with history of alcohol use disorder, alcohol withdrawal seizure history, continued daily alcohol use, PTSD, pancreatitis, polysubstance use disorder and bipolar disorder presenting with reported seizure-like activity. Patient was just discharged from this hospital for alcohol intoxication. She reportedly got home and called 911 herself after she ?had a seizure?. It was an unwitnessed event. There was reportedly no postictal activity per EMS. Patient states that she feels shaky and thinks that she might have another seizure. She admits to some nonbloody diarrhea as well as several episodes of vomiting associated with her alcohol intake. Abdominal pain she has been complaining about during her previous visit had resolved after Haldol. She denies headache, vision changes, chest pain, difficulty breathing, cough or cold-type symptoms, urinary complaints, vaginal bleeding or discharge. Related Data Previous Rx's ?Medication ?Instructions ?Recorded hydroxyzine pamoate 100 mg capsule 100 mg PO QID PRN anxiety 30 days 08/19/25 #120 caps risperidone 1 mg tablet 1 mg PO BID 30 days #60 tabs 08/19/25 sucralfate 1 gram tablet 1 g PO BIDAC 30 days #60 tabs 08/19/25 trazodone 100 mg tablet 100 mg PO BEDTIME PRN Insomnia 30 08/19/25 days #30 tabs acetaminophen 325 mg tablet 650 mg (2 x 325 mg) PO Q6H PRN 10/19/25 Pain, Mild 1-3,Fever,Headache #10 tabs ceftriaxone 1 gram solution for 1 g IV Q24H #1 ea 10/19/25 injection folic acid 1 mg tablet 1 mg PO DAILY #14 tabs 10/19/25 hydromorphone 1 mg/mL injection 0.5 mg IVPUSH Q4H PRN Breakthrough 10/19/25 syringe Pain #10 mL insulin lispro 100 unit/mL See Protocol subcut QIDACHS #3 mL 10/19/25 subcutaneous solution (Admelog U-100 Insulin lispro) metronidazole 500 mg/100 mL in 500 mg IV Q8H #2,400 mL 10/19/25 sodium chlor(iso) intravenous piggyback ondansetron HCl (PF) 4 mg/2 mL 4 mg (2 mL) IVPUSH Q8H PRN Nausea 10/19/25 injection solution And Vomiting #20 mL pantoprazole 40 mg intravenous 40 mg IVPUSH DAILY@0630 #1 ea 10/19/25 solution (Protonix) phenobarbital 15 mg tablet 15 mg PO BID #7 tabs 10/19/25 phenobarbital 15 mg tablet 15 mg PO DAILY #7 tabs 10/19/25 phenobarbital 15 mg tablet 45 mg (3 x 15 mg) PO BID #7 tabs 10/19/25 thiamine mononitrate (vit B1) 100 100 mg PO DAILY #7 tabs 10/19/25 mg tablet Allergies Allergy/AdvReac Type Severity Reaction Status Date / Time SEAFOOD Allergy Unknown UNK Uncoded 10/23/25 12:12 Review of Systems Review of Systems: As per HPI, full review of systems performed and negative but for the above mentioned pertinent positives and negatives. [facility] Past Medical History Medical History Abdominal pain Alcohol use disorder PTSD (post-traumatic stress disorder) Polysubstance use disorder Bipolar disorder Social History Social History Household Members: Family Household Members Other:: 3 Housing: House Do you presently have visiting nurse or other home services: No Alcohol intake: current Alcohol intake frequency: 3 or more drinks per day Alcohol type: hard liquor Comment: sitter Patient Tobacco Use Status: Current everyday Tobacco user Tobacco use type: Cigarette Cigarettes Per Day: 7 e-Cigarette/Vaping Use: Currently Using Second Hand Smoke Exposure: No Substance Use Type: Opiates and Other Advance Directives: No Advance Directives Information Provided: No service: No Sexual orientation: Straight/Heterosexual Physical Exam ED Exam Exam: GENERAL: Appears intoxicated, GCS 13, eyes open to voice, slurred speech, agitated, tremulous SKIN: Normal skin color for ethnicity, warm, dry, no rashes noted. HEENT: Normocephalic, atraumatic, no stridor, posterior oropharynx nonerythematous, dentition intact, EOMI, pupils are pinpoint bilaterally, reactive to light. NECK: Soft, supple, no step-offs, no deformities, no lymphadenopathy. CHEST: Heart regular tachycardia, no murmurs, symmetric chest rise and fall. PULMONARY: Clear to auscultation bilaterally, diminished at the bases, no labored breathing, no wheezes/rhales/rhonchi. ABDOMINAL: Soft, nondistended, positive bowel sounds in all quadrants. : Deferred. MUSCULOSKELETAL: Normal tone, full range of motion, no deformities, no peripheral edema. NEURO: GCS 13, eyes open to voice, slightly slurred speech, CN II through XII intact, equal strength and sensation bilateral upper and lower extremities, no focal neurologic deficits, tremulousness. PSYCHIATRIC: Anxious affect, poor eye contact. Vital Signs: Vital Signs - 24 hr 10/18/25 23:45 Temperature 98 F Pulse Rate 77 Respiratory Rate 16 Blood Pressure 120/74 Pulse Oximetry 98 Oxygen Delivery Method Room Air BMI result Body Mass Index 23.0 Medical Decision Making Medical Decision Making MDM Narrative: Patient presents today with chief complaint of seizure activity, potential alcohol withdrawal. Differential diagnosis includes alcohol withdrawal seizure, breakthrough seizure, medication noncompliance, intracranial pathology such as hemorrhage or embolism, infectious process such as meningitis, stimulant use or drug toxicity, hyperthyroidism, electrolyte abnormality, nonepileptic seizure activity (psychogenic seizure activity), among many others. Patient continues to remain hemodynamically stable. No evidence of prolonged QTC on EKG. She did receive Haldol and Benadryl prior to discharge yesterday. She is requesting alcohol detox and given her CIWA of 12, I feel she should be started on the phenobarb protocol. We will admit to hospitalist for further care and evaluation. Patient understands and agrees with plan for admission. Admitted in guarded condition. Differential Diagnosis Differential Diagnoses: The differential diagnosis associated with the presentation includes (As above) Admission/Observation Consideration of admission/observation: Escalation of care including admission/observation considered Consult Healthcare Provider Management of the patient was discussed with: Hospitalist Lab Data [facility] Lab Attestation statement: I reviewed the patient's lab results. 10/19/25 10:59 10/19/25 10:58 Labs: Lab Results 10/19/25 10/19/25 10/19/25 Range/Units 02:55 03:12 03:16 VBG pH 7.46 H (7.32-7.43) VBG pCO2 25 mmHg VBG pO2 235 mmHg VBG HCO3 18 L (22-26) mmol/L VBG O2 Saturation 100.0 % VBG Base Excess -3.3 mmol/L POC Glucose 235 H (60-115) mg/dL Beta-Hydroxybutyrate 0.19 (0.02-0.27) mmol/L Independent Interpretation I performed an independent interpretation of an: EKG Interpretation: My independent interpretation of the ECG reveals normal sinus rhythm with rate of 88, normal axis, normal intervals, no ST elevations or depressions to suggest ischemic changes, relatively unchanged from previous on 08/13/2025. Radiology Impression Discussion of test interpretation with radiology: I have reviewed the radiologist's reading. Independent Historian Clinical information obtained from an independent historian. History obtained from or confirmed by: Parent and EMS External Record Review External record reviewed: Inpatient record Chronic Conditions Patient?s care impacted by: Other (Alcohol use disorder) Social Determinants Patient?s care significantly limited by Social Determinants of Health including: Other Social Determinant of Health Medications Administered Discontinued Medications Generic Name Dose Route Start Last Admin Trade Name Freq PRN Reason Stop Dose Admin Diazepam 10 mg 10/19/25 01:32 10/19/25 01:37 Diazepam 10 Mg/2 Ml Cartridge IM 10/19/25 01:33 10 mg STAT STA Administration Diphenhydramine HCl 50 mg 10/19/25 02:44 10/19/25 02:53 Diphenhydramine Hcl 50 Mg/Ml Vial IVPUSH 10/19/25 02:45 50 mg ONCE ONE Administration Enoxaparin Sodium 40 mg 10/19/25 09:00 10/19/25 07:21 Enoxaparin Sodium 40 Mg/0.4 Ml Syringe SUBCUT 40 mg Q24H KATHY Administration Famotidine 20 mg 10/19/25 02:44 10/19/25 02:53 Famotidine/Pf 20 Mg/2 Ml Vial IVPUSH 10/19/25 02:45 20 mg ONCE ONE Administration Folic Acid 1 mg 10/19/25 09:00 10/19/25 07:21 Folic Acid 1 Mg Tablet PO 10/22/25 08:59 1 mg DAILY KATHY Administration Haloperidol Lactate 5 mg 10/19/25 02:44 10/19/25 02:53 Haloperidol Lactate 5 Mg/Ml Vial IVPUSH 10/19/25 02:45 5 mg STAT STA Administration Hydromorphone HCl 0.5 mg 10/19/25 05:15 10/19/25 14:50 Hydromorphone Hcl 1 Mg/Ml Syringe IVPUSH 0.5 mg Q4H PRN Administration Breakthrough Pain Protocol Hydromorphone HCl 0.5 mg 10/19/25 16:30 10/19/25 16:34 Hydromorphone Hcl 1 Mg/Ml Syringe IVPUSH 10/19/25 16:31 0.5 mg ONCE ONE Administration Protocol Hydroxyzine HCl 100 mg 10/19/25 10:49 10/19/25 11:05 Hydroxyzine Hcl 50 Mg Tablet PO 100 mg QID PRN Administration Anxiety Lactated Ringer's 1,000 mls @ 999 mls/hr 10/19/25 02:44 10/19/25 05:18 Lr IV 10/19/25 03:44 Infused .Q1H1M ONE Infusion Ceftriaxone Sodium 1 gm/ 50 mls @ 100 mls/hr 10/19/25 05:00 10/19/25 05:57 Sodium Chloride IV Infused Q24H KATHY Infusion Metronidazole 500 mg in 100 mls @ 100 mls/hr 10/19/25 05:00 10/19/25 15:28 Flagyl IV Infused Q8H KATHY Infusion Lactated Ringer's 1,000 mls @ 100 mls/hr 10/19/25 05:00 10/19/25 19:08 Lr IVCONT Infused .Q10H KATHY Infusion Insulin Human Lispro 0 unit 10/19/25 07:30 10/19/25 17:40 Insulin Lispro 100 Unit/Ml 3 Ml Vial SUBCUT Not Given QIDACHS [facility] Protocol Multivitamins/Vitamin C 1 tab 10/19/25 09:00 10/19/25 07:21 Multivitamin Tablet PO 10/22/25 08:59 1 tab DAILY KATHY Administration Ondansetron HCl 4 mg 10/19/25 04:37 10/19/25 11:05 Ondansetron Hcl 4 Mg/2 Ml Vial IVPUSH 4 mg Q8H PRN Administration Nausea and Vomiting Pantoprazole Sodium 40 mg 10/19/25 06:30 10/19/25 06:00 Pantoprazole Sodium 40 Mg/10 Ml Vial IVPUSH 40 mg DAILY@0630 KATHY Administration Phenobarbital 45 mg 10/19/25 18:00 10/19/25 17:49 Phenobarbital 15 Mg Tablet PO 10/21/25 09:01 45 mg BID KATHY Administration Protocol Phenobarbital Sodium 260 mg 10/19/25 03:30 10/19/25 03:16 Phenobarbital Sodium 130 Mg/Ml Im Once IM 10/19/25 03:31 260 mg ONCE ONE Administration Protocol Phenobarbital Sodium 195 mg 10/19/25 06:30 10/19/25 08:54 Phenobarbital Sodium 130 Mg/Ml Vial Im Q3hx2 IM 10/19/25 09:31 195 mg Q3H KATHY Administration Protocol Phenobarbital Sodium 130 mg 10/19/25 14:34 10/19/25 14:44 Phenobarbital Sodium 130 Mg/Ml Vial IM 10/19/25 14:35 130 mg ONCE ONE Administration Sodium Chloride 3 ml 10/19/25 08:00 10/19/25 14:47 0.9 % Sodium Chloride Flush 3 Ml Syringe IVFLUSH Not Given QSHIFT [facility] Sucralfate 1 gm 10/19/25 16:30 10/19/25 17:49 Sucralfate 1 Gm Tablet PO 1 gm BIDAC KATHY Administration Thiamine HCl 100 mg 10/19/25 09:00 10/19/25 07:21 Thiamine Hcl 100 Mg Tablet PO 10/22/25 08:59 100 mg DAILY KATHY Administration Discharge Plan Discharge Clinical Impression: Alcohol use disorder, Alcoholic ketosis, Dehydration Patient Disposition: Admitted As Inpatient Interventions: Acute Care Transfer Worksheet (ED) Last Done: 10/19/25 18:47 Discharge Date/Time: 10/19/25 19:27
--- NOTE | 2025-10-19 04:34 | PC.NURSE ---
photoengraving sketch maker put on patient multiple times. patient continues to remove monitor.
[2025-10-19 04:35] VITALS: BP 134/77; PULSE 89; RESP 16; TEMP 36.4; O2SAT 98
--- NOTE | 2025-10-19 04:39 | PM.IMHP ---
History of Present Illness Date of Service: 10/19/25 Chief Complaint: Abdominal pain 29-year-old female with a past medical history of alcohol use disorder, diabetes, history of pancreatitis, PTSD, polysubstance use disorder, bipolar; presented to the hospital with a chief complaint of abdominal discomfort. Reportedly patient has been drinking alcohol for past 3 days. Patient mentioned that she has been having abdominal pain for the past couple days. Reports having nausea vomiting and diarrhea. Mentions he has been drinking alcohol daily Review of all other systems is negative except mentioned above ER course: Per ER team, patient noted to have mild abdominal tenderness; H&H slightly elevated-concern for possible dehydration; bicarb was 14 with anion gap of 22; concern for alcoholic/starvation ketosis. Glucose level was 326. LFTs within normal limits. Lipase within normal limits. Alcohol level 333. Patient was given IV Dilaudid, Benadryl, IV fluids. Right upper quadrant ultrasound showed findings concerning for acute cholecystitis. [facility] Medical History (Updated 10/19/25 @ 00:00 by Erin Wylie) Alcohol use disorder PTSD (post-traumatic stress disorder) Polysubstance use disorder Bipolar disorder Social History Household Members: Children Household Members Other:: 3 Housing: House Do you presently have visiting nurse or other home services: No Alcohol intake: current Alcohol intake frequency: 3 or more drinks per day Alcohol type: hard liquor Comment: sitter Patient Tobacco Use Status: Current someday Tobacco user Tobacco use type: Cigarette Cigarettes Per Day: 7 Smoked in Last 30 Days: Yes e-Cigarette/Vaping Use: Currently Using Second Hand Smoke Exposure: No Use of substances other than those prescribed or required for medical reasons: No Substance Use Type: Opiates and Other Advance Directives: No service: No Sexual orientation: Straight/Heterosexual Meds Allergies Allergy/AdvReac Type Severity Reaction Status Date / Time SEAFOOD Allergy Unknown UNK Uncoded 10/18/25 23:48 Active Medications: Current Medications Pharmacy Consult (Consult Rx Etoh Phenob Im/Po) 1 each MISCELLANE ONCE PRN; Protocol PRN Reason: Consult order Phenobarbital (Phenobarbital 15 Mg Tablet) 45 mg PO BID KATHY; Protocol Stop: 10/21/25 09:01 Phenobarbital (Phenobarbital 15 Mg Tablet) 15 mg PO BID KATHY; Protocol Stop: 10/23/25 09:01 Phenobarbital (Phenobarbital 15 Mg Tablet) 15 mg PO DAILY KATHY; Protocol Stop: 10/25/25 09:01 Phenobarbital Sodium (Phenobarbital Sodium 130 Mg/Ml Vial Im Q3hx2) 195 mg IM Q3H KATHY; Protocol Stop: 10/19/25 09:31 Physical Exam Vital Signs and Narrative: Vital Signs: Last Vital Signs Temp 97.6 F 10/19/25 04:35 Pulse 89 10/19/25 04:35 Resp 16 10/19/25 04:35 BP 134/77 10/19/25 04:35 Pulse Ox 98 10/19/25 04:35 O2 Del Method Room Air 10/19/25 04:35 BMI result Body Mass Index 23.0 Gen: Appears be in no acute distress HEENT: NCAT, Moist mucosa. Pulmonary: Vesicular breath sounds, fair air entry CVS: Normal S1-S2 Abdomen: BS+, Soft, mildly tender without guarding or rigidity Extremities: Warm well perfused Neuro: Alert and awake. Results Labs Labs: Laboratory Results - last 24 hr 10/19/25 10/19/25 10/19/25 02:55 03:12 03:16 VBG pH 7.46 H VBG pCO2 25 VBG pO2 235 VBG HCO3 18 L VBG O2 Saturation 100.0 VBG Base Excess -3.3 POC Glucose 235 H Beta-Hydroxybutyrate 0.19 Assessment and Plan (1) Alcohol use disorder: Status: Acute Plan 29-year-old female with a past medical history of alcohol use disorder, diabetes, history of pancreatitis, PTSD, polysubstance use disorder, bipolar; presented to the hospital with a chief complaint of abdominal discomfort. Admitted for following Abdominal pain: Concern for acute on chronic pancreatitis versus alcoholic gastritis versus cholecystitis RUQ ultrasound on 09/17/25 showed findings concerning for cholelithiasis/acute cholecystitis During that admission in August patient left AMA without being evaluated by General surgery, interrupting antibiotics therapy. Will obtain stat CT abdomen pelvis Empirically covered with ceftriaxone Flagyl Pain control General surgery consult NPO for now Gentle IV fluids Diabetes: Insulin sliding scale Alcohol use disorder: Patient started on phenobarbital protocol. Thiamine folate and multivitamins Alcoholic ketoacidosis: Patient on IV fluids HX seizure: Continue home ox carbamazepine DVT prophylaxis: Lovenox Code status: Full code Quality Stroke Does the patient have a stroke diagnosis?: No VTE Prior VTE?: No VTE Risk Level:: Medical - moderate - high VTE Device Contraindication: Treatment Not Indicated VTE Drug Contraindication: N/A - Med Ordered
--- NOTE | 2025-10-19 05:26 | PC.NURSE ---
patient refused morning labs, provider made aware.
--- NOTE | 2025-10-19 05:30 | PC.NURSE ---
patient has been sleeping since medicated earlier in the night. wakes when RN goes into room but appears drowsy and states she needs pain meds. patient falls asleep when talking with RN. will not administer IV pain medication until patient is more awake.
--- NOTE | 2025-10-19 05:40 | PC.NURSE ---
Addendum entered by Terra Butcher RN 10/19/25 06:01: patient asked if lab work could be attempted. patient did not answer question, continued to ask for food and drink. scheduled antibiotics hung. Original Note: provider put in order for blood culture, IV antibiotics already administered. provider aware of this. patient previously refused labs will see if allows for blood cultures to be drawn.
[2025-10-19 05:58] VITALS: BP 107/72; PULSE 92; RESP 16; O2SAT 97
[2025-10-19] MEDS: metroNIDAZOLE/NS 500 MG/100 ML PIGGYBACK 100 MG IV ×2 (06:00→14:16)
[2025-10-19] MEDS: PHENobarbitaL sodium 130 MG/ML VIAL IM Q3Hx2 195 MG IM ×2 (06:00→08:54)
[2025-10-19] MEDS: Lactated Ringers 1,000 ML 100 ML IVCONT ×2 (06:11→14:11)
[2025-10-19 07:21] LABS: Glucose, Whole Blood 220 mg/dL (60-115)
--- NOTE | 2025-10-19 07:43 | PC.NURSE ---
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 rr equal/non labored- lungs clear, pt medicated per order, ciwa performed-4, IVF running per order, awaiting ct scan, call vu within reach, seizure precautions/fall precautions intact, plan of care ongoing
--- NOTE | 2025-10-19 08:19 | P.CONGS_ITS ---
History of Present Illness Consult details Consult date: 10/19/25 <Pieter Hensley PA-C - Last Filed: 10/19/25 08:56> Reason for consult: abdominal pain (?acute cholecysitis) <Pieter Hensley PA-C - Last Filed: 10/19/25 08:56> Narrative: 29 year old female with a history of AUD, bipolar, PTSD, DM who is admitted for abdominal pain and AUD seen in consult for possible acute cholecystitis seen on imaging when patient was admitted for similar presentation about a month ago and left AMA prior to general surgery evaluation. US at that time showing cholelithiasis, a mildly thickened wall about 3mm, and a mildly dilated CBD up to 6 mm. No pericholecystic fluid. Labs on presentation this admission showing mild leukocytosis, liver enzymes WNL. She is on empiric ceftriaxone, IV fluids, ETOH withdrawal protocol. Hospitalist differential including pancreatitis, gastritis, cholecystitis. She was minimally responsive during evaluation, she was very lethargic, tremulous. She did state she has upper abdominal pain in the epigastric region. Did not comment about nausea when asked multiple times. wanted to know how long this would take. <Pieter Hensley PA-C - Last Filed: 10/19/25 08:56> [facility] Past Medical History Medical History: Medical History (Updated 10/19/25 @ 14:40 by Geoff Abdalla MD) Abdominal pain Alcohol use disorder PTSD (post-traumatic stress disorder) Polysubstance use disorder Bipolar disorder <Pieter Hensley PA-C - Last Filed: 10/19/25 08:56> Social History Social History: Social History Household Members: Family Household Members Other:: 3 Housing: House Do you presently have visiting nurse or other home services: No Alcohol intake: current Alcohol intake frequency: 3 or more drinks per day Alcohol type: hard liquor Comment: sitter Patient Tobacco Use Status: Current everyday Tobacco user Tobacco use type: Cigarette Cigarettes Per Day: 7 Smoked in Last 30 Days: Yes e-Cigarette/Vaping Use: Currently Using Second Hand Smoke Exposure: No Use of substances other than those prescribed or required for medical reasons: No Substance Use Type: Opiates and Other Have you been hit, kicked, punched, or otherwise hurt by someone within the past year? If so, by whom?: No Do you feel safe in your current relationship?: Yes Is there a partner from a previous relationship who is making you feel unsafe now?: No Are you made to feel afraid or neglected: No Advance Directives: No Do you have a plan to hurt others: No Plan Recently lost weight without trying: No Nutrition Risks: Poor intake 0-25% >4 days Patient : No : No Poor oral hygiene: No service: No Sexual orientation: Straight/Heterosexual <Pieter Hensley PA-C - Last Filed: 10/19/25 08:56> Meds Allergies/Adverse reactions: Allergies Allergy/AdvReac Type Severity Reaction Status Date / Time SEAFOOD Allergy Unknown UNK Uncoded 10/18/25 23:48 <Pieter Hensley PA-C - Last Filed: 10/19/25 08:56> Active Medications: Current Medications Acetaminophen (Acetaminophen 325 Mg Tablet) 650 mg PO Q6H PRN PRN Reason: Pain, Mild 1-3,fever,headache Calcium Carbonate (Calcium Carbonate 750 Mg Tab.Chew) 750 mg PO Q4H PRN PRN Reason: Heartburn Dextrose (Dextrose 50 % 25 Gm/50 Ml Syringe) 25 gm IVPUSH Q15M PRN; Protocol PRN Reason: per Hypoglycemia Standing Ord. Enoxaparin Sodium (Enoxaparin Sodium 40 Mg/0.4 Ml Syringe) 40 mg SUBCUT Q24H [facility] Last Admin: 10/19/25 07:21 Dose: 40 mg Folic Acid (Folic Acid 1 Mg Tablet) 1 mg PO DAILY KATHY Stop: 10/22/25 08:59 Last Admin: 10/19/25 07:21 Dose: 1 mg Glucose (Glucose Gel 15 Gm Gel..Gram.) 15 gm PO Q15M PRN; Protocol PRN Reason: per Hypoglycemia Standing Ord. Hydromorphone HCl (Hydromorphone Hcl 1 Mg/Ml Syringe) 0.5 mg IVPUSH Q4H PRN; Protocol PRN Reason: Breakthrough Pain Ceftriaxone Sodium 1 gm/ (Sodium Chloride) 50 mls @ 100 mls/hr IV Q24H [facility] Last Infusion: 10/19/25 05:57 Dose: Infused Metronidazole (Flagyl) 500 mg in 100 mls @ 100 mls/hr IV Q8H [facility] Last Infusion: 10/19/25 07:04 Dose: Infused Lactated Ringer's (Lr) 1,000 mls @ 100 mls/hr IVCONT .Q10H [facility] Last Admin: 10/19/25 06:11 Dose: 100 mls/hr Insulin Human Lispro (Insulin Lispro 100 Unit/Ml 3 Ml Vial) 0 unit SUBCUT QIDACHS [facility]; Protocol Last Admin: 10/19/25 07:21 Dose: 4 unit Magnesium Hydroxide (Milk Of Magnesia 30 Ml Oral.Susp) 30 ml PO DAILY PRN PRN Reason: Constipation Melatonin (Melatonin 3 Mg Tablet) 6 mg PO BEDTIME PRN PRN Reason: Insomnia Multivitamins/Vitamin C (Multivitamin Tablet) 1 tab PO DAILY [facility] Stop: 10/22/25 08:59 Last Admin: 10/19/25 07:21 Dose: 1 tab Ondansetron HCl (Ondansetron Hcl 4 Mg/2 Ml Vial) 4 mg IVPUSH Q8H PRN PRN Reason: Nausea and Vomiting Pantoprazole Sodium (Pantoprazole Sodium 40 Mg/10 Ml Vial) 40 mg IVPUSH DAILY@0630 [facility] Last Admin: 10/19/25 06:00 Dose: 40 mg Pharmacy Consult (Consult Rx Etoh Phenob Im/Po) 1 each MISCELLANE ONCE PRN; Protocol PRN Reason: Consult order Phenobarbital (Phenobarbital 15 Mg Tablet) 45 mg PO BID [facility]; Protocol Stop: 10/21/25 09:01 Phenobarbital (Phenobarbital 15 Mg Tablet) 15 mg PO BID [facility]; Protocol Stop: 10/23/25 09:01 Phenobarbital (Phenobarbital 15 Mg Tablet) 15 mg PO DAILY [facility]; Protocol Stop: 10/25/25 09:01 Phenobarbital Sodium (Phenobarbital Sodium 130 Mg/Ml Vial Im Q3hx2) 195 mg IM Q3H [facility]; Protocol Stop: 10/19/25 09:31 Last Admin: 10/19/25 06:00 Dose: 195 mg Sodium Chloride (0.9 % Sodium Chloride Flush 3 Ml Syringe) 3 ml IVFLUSH QSHIFT [facility] Last Admin: 10/19/25 06:50 Dose: Not Given Temazepam (Temazepam 15 Mg Capsule) 15 mg PO BEDTIME PRN PRN Reason: Insomnia Thiamine HCl (Thiamine Hcl 100 Mg Tablet) 100 mg PO DAILY [facility] Stop: 10/22/25 08:59 Last Admin: 10/19/25 07:21 Dose: 100 mg <Pieter Hensley PA-C - Last Filed: 10/19/25 08:56> Home medications: Home Medications ?Medication ?Instructions ?Recorded ?Confirmed ?Last Taken ?Type meclizine 25 mg tablet 25 mg PO BID PRN nausea 10/0110/19/25 Unknown History multivitamin-ferrous 1 tab PO DAILY 10/19/2510/01 Unknown History fumarate-folic acid 18 mg-400 mcg tablet (Certavite-Antioxidant) <Pieter eHnsley PA-C - Last Filed: 10/19/25 08:56> Physical Exam 2 Vital Signs: Vital Signs: Last Vital Signs Temp 97.6 F 10/19/25 04:35 Pulse 92 10/19/25 05:58 Resp 16 10/19/25 05:58 BP 107/72 10/19/25 05:58 Pulse Ox 97 10/19/25 05:58 O2 Del Method Room Air 10/19/25 05:58 BMI result Body Mass Index 23.0 <Pieter Hensley PA-C - Last Filed: 10/19/25 08:56> Const: Other: tremulous <Pieter Hensley PA-C - Last Filed: 10/19/25 08:56> General: no acute distress and lethargic <Pieter Hensley PA-C - Last Filed: 10/19/25 08:56> Orientation/consciousness: patient oriented x3 and lethargic <Pieter Hensley PA-C - Last Filed: 10/19/25 08:56> Neuro: General: patient oriented x3 <JEREMY Beauchamp Last Filed: 10/19/25 08:56> Results Labs Result diagrams: 10/19/25 10:59 10/19/25 10:58 <JEREMY Beauchamp Last Filed: 10/19/25 08:56> Labs: Abnormal lab results 10/19/25 10/19/25 10/19/25 Range/Units 03:12 03:16 07:17 VBG pH 7.46 H (7.32-7.43) VBG HCO3 18 L (22-26) mmol/L POC Glucose 235 H 220 H (60-115) mg/dL All other labs normal. <Pieter Hensley PA-C - Last Filed: 10/19/25 08:56> Assessment and Plan (1) Abdominal pain: Qualifiers: Abdominal location: epigastric Qualified Code(s): R10.13 - Epigastric pain <Pieter Hensley PA-C - Last Filed: 10/19/25 08:56> Status: Acute <Pieter Hensley PA-C - Last Filed: 10/19/25 08:56> 29 year old female with a history of AUD, bipolar, PTSD, DM who is admitted for abdominal pain and AUD seen in consult for possible acute cholecystitis seen on imaging a month ago when patient was admitted and left AMA prior to general surgery consult. Poor historian, minimally responsive during evaluation. Did complain of some epigastric abdominal pain. Did not elaborate about nausea or vomiting. On exam was generally tender throughout with no focal areas. She does appear to be withdrawing at this point, very tremulous, lethargic. Currently on phenobarb protocol. Reviewed imaging from last admission, there was some mild changes that are likely chronic in nature although she does have gallstones. Labs on admission not suggestive of acute cholecystitis at this time. Would recommend repeat imaging to re-evaluate. Likely not a good candidate for surgery at this time but we will continue to follow Continue empiric antibiotics Recommend repeat imaging of the gallbladder We will continue to follow up <Pieter Hensley PA-C - Last Filed: 10/19/25 08:56> 29 year old female with a history of AUD, bipolar, PTSD, DM who is admitted for abdominal pain and AUD seen in consult for possible acute cholecystitis seen on imaging a month ago when patient was admitted and left AMA prior to general surgery consult. Poor historian, minimally responsive during evaluation. Did complain of some epigastric abdominal pain. Did not elaborate about nausea or vomiting. On exam was generally tender throughout with no focal areas. She does appear to be withdrawing at this point, very tremulous, lethargic. Currently on phenobarb protocol. Reviewed imaging from last admission, there was some mild changes that are likely chronic in nature although she does have gallstones. Labs on admission not suggestive of acute cholecystitis at this time. Would recommend repeat imaging to re-evaluate. Likely not a good candidate for surgery at this time but we will continue to follow Continue empiric antibiotics Recommend repeat imaging of the gallbladder We will continue to follow up <Rosalio Sol MD - Last Filed: 10/19/25 15:08> The patient is a very poor historian Known alcohol use disorder Also with behavioral health issues including PTSD and bipolar disorder apparently admitted because of abdominal pain, question of seizure episode, withdrawals Describes pain diffusely Seems to have some tenderness throughout abdomen Imaging studies reviewed from last month - the patient is a gallbladder wall thickening and gallstones Likely to represent 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
--- NOTE | 2025-10-19 08:50 | MHC.EDTECH ---
This tech attempted to obtain a blood or urine sample from Pt for HCG test. Pt states that she does not have to urinate at this time. I stated that we will need to draw blood then for the test. Pt ignored me and just stated that she was uncomfortable and in pain. DILIP calvillo.
--- NOTE | 2025-10-19 08:55 | PC.NURSE ---
pt medicated per order
--- NOTE | 2025-10-19 09:36 | MHC.EDTECH ---
T/w attempted to obtain labs for HCG. Multiple prior attempts made. Pt still refusing.
--- NOTE | 2025-10-19 09:52 | PHA.MEDREC ---
Pharmacy Consult ? Medication Reconciliation Pharmacy has completed the medication reconciliation. Unable to speak with patient. Med rec completed per claim history
--- NOTE | 2025-10-19 10:58 | PC.NURSE ---
provider was notified pts quant was 241, ob consult was placed.
--- NOTE | 2025-10-19 11:06 | PC.NURSE ---
pt medicated for nausea as well as anxiety, ivf continue to run as ordered, call vu within reach, plan of care ongoing
[2025-10-19 11:11] LABS: Hematocrit 35.3 % (37.0-47.0); Hemoglobin 12.2 g/dl (12.0-16.0); Imm Gran Abs Auto 0.04 X10*3/uL (0.00-0.03); Imm Gran Pct Auto 0.4 % (0.0-0.4); Lymphocytes Absolute Auto 3.0 X10*3/uL (1.2-4.9); MANUAL DIFF FLAG SCAN; Mean Corpuscular HGB Conc 34.6 g/dl (31.0-35.0); Mean Corpuscular Hemoglobin 30.2 pg (27.0-33.0); Mean Corpuscular Volume 87.4 fL (80.0-98.0); NRBC Abs Auto 0.000 X10*3/uL (0.0-0.012); NRBC Pct Auto 0.0 /100WBC (0.0-0.2); PLT CLUMP 1; Red Blood Count 4.04 X10*6/uL (4.20-5.50); SCAN SMEAR FLAG 1
[2025-10-19 11:23] LABS: Alanine Aminotransferase 13 U/L (0-31); Albumin Level 3.9 g/dL (3.5-5.0); Alkaline Phosphatase 89 U/L (39-117); Anion Gap 12 (12-20); Aspartate Amino Transferase 27 U/L (5-31); Blood Urea Nitrogen 9 mg/dL (9-16); Calcium 8.6 mg/dL (8.4-10.2); Carbon Dioxide 22 mmol/L (22-29); Chloride 106 mmol/L (96-108); Creatinine Clr Calc Pharmacy 131.0; Estimated Glomerular Filt Rate > 60; Potassium 4.0 mmol/L (3.3-5.1); Sodium 136 mmol/L (135-145); Total Protein 6.4 g/dL (6.5-8.0)
[2025-10-19 11:37] LABS: White Blood Count 9.8 X10*3/uL (4.8-10.8)
[2025-10-19 12:42] LABS: Glucose, Whole Blood 173 mg/dL (60-115)
--- NOTE | 2025-10-19 12:48 | MHC.CM.PN ---
CM met with Patient at bedside, in the ED. Patient lives in an apartment with her Father and she is functionally independent. Home self care VS Recovery Team intervention R/T ETOH is the tentative plan and CM has initiated and will follow for dc planning. PCP is from [facility] and Patient will need assist with transport at dc.
--- NOTE | 2025-10-19 13:17 | PC.NURSE ---
radiology here to bring patient for an ultrasound
[2025-10-19 14:22] VITALS: BP 124/72; PULSE 68; RESP 16; TEMP 36.9; O2SAT 98
--- NOTE | 2025-10-19 14:27 | P.CONOB_ITS ---
HOGSHEAD STRIPPER - CN: HPI Data of Consult Consult date: 10/19/25 Requesting Physician: Armani Toussaint MD Primary Care Provider: [facility] Consult Narrative Narrative: I was consulted on Ibeth Sommers who is a 29 year old female admitted for or call use disorder and polysubstance use was admitted with abdominal pain thought to be pancreatitis related to alcohol use, hCG this morning was found to be 241 Urine tox screen is positive for benzodiazepine phencyclidine and Barbiturates, alcohol level was 333 Pelvic ultrasound showed no intrauterine , a 2.4 x 1.7 x 1.5 left adnexal mass suspicious for ectopic cc:: CC: Armani Toussaint MD OB [facility] Past Medical History Medical History (Updated 10/19/25 @ 14:40 by Geoff Abdalla MD) Abdominal pain Alcohol use disorder PTSD (post-traumatic stress disorder) Polysubstance use disorder Bipolar disorder Social History Social History Household Members: Family Household Members Other:: 3 Housing: House Do you presently have visiting nurse or other home services: No Alcohol intake: current Alcohol intake frequency: 3 or more drinks per day Alcohol type: hard liquor Comment: sitter Patient Tobacco Use Status: Current everyday Tobacco user Tobacco use type: Cigarette Cigarettes Per Day: 7 Smoked in Last 30 Days: Yes e-Cigarette/Vaping Use: Currently Using Second Hand Smoke Exposure: No Use of substances other than those prescribed or required for medical reasons: No Substance Use Type: Opiates and Other Have you been hit, kicked, punched, or otherwise hurt by someone within the past year? If so, by whom?: No Do you feel safe in your current relationship?: Yes Is there a partner from a previous relationship who is making you feel unsafe now?: No Are you made to feel afraid or neglected: No Advance Directives: No Do you have a plan to hurt others: No Plan Recently lost weight without trying: No Nutrition Risks: Poor intake 0-25% >4 days Patient : No : No Poor oral hygiene: No service: No Sexual orientation: Straight/Heterosexual Meds Allergies Allergy/AdvReac Type Severity Reaction Status Date / Time SEAFOOD Allergy Unknown UNK Uncoded 10/18/25 23:48 Active Medications: Current Medications Acetaminophen (Acetaminophen 325 Mg Tablet) 650 mg PO Q6H PRN PRN Reason: Pain, Mild 1-3,fever,headache Calcium Carbonate (Calcium Carbonate 750 Mg Tab.Chew) 750 mg PO Q4H PRN PRN Reason: Heartburn Dextrose (Dextrose 50 % 25 Gm/50 Ml Syringe) 25 gm IVPUSH Q15M PRN; Protocol PRN Reason: per Hypoglycemia Standing Ord. Enoxaparin Sodium (Enoxaparin Sodium 40 Mg/0.4 Ml Syringe) 40 mg SUBCUT Q24H [facility] Last Admin: 10/19/25 07:21 Dose: 40 mg Folic Acid (Folic Acid 1 Mg Tablet) 1 mg PO DAILY [facility] Stop: 10/22/25 08:59 Last Admin: 10/19/25 07:21 Dose: 1 mg Glucose (Glucose Gel 15 Gm Gel..Gram.) 15 gm PO Q15M PRN; Protocol PRN Reason: per Hypoglycemia Standing Ord. Hydromorphone HCl (Hydromorphone Hcl 1 Mg/Ml Syringe) 0.5 mg IVPUSH Q4H PRN; Protocol PRN Reason: Breakthrough Pain Hydroxyzine HCl (Hydroxyzine Hcl 50 Mg Tablet) 100 mg PO QID PRN PRN Reason: Anxiety Last Admin: 10/19/25 11:05 Dose: 100 mg Ceftriaxone Sodium 1 gm/ (Sodium Chloride) 50 mls @ 100 mls/hr IV Q24H [facility] Last Infusion: 10/19/25 05:57 Dose: Infused Metronidazole (Flagyl) 500 mg in 100 mls @ 100 mls/hr IV Q8H [facility] Last Admin: 10/19/25 14:16 Dose: 100 mls/hr Lactated Ringer's (Lr) 1,000 mls @ 100 mls/hr IVCONT .Q10H [facility] Last Admin: 10/19/25 14:11 Dose: 100 mls/hr Insulin Human Lispro (Insulin Lispro 100 Unit/Ml 3 Ml Vial) 0 unit SUBCUT QIDACHS [facility]; Protocol Last Admin: 10/19/25 14:15 Dose: 2 unit Magnesium Hydroxide (Milk Of Magnesia 30 Ml Oral.Susp) 30 ml PO DAILY PRN PRN Reason: Constipation Melatonin (Melatonin 3 Mg Tablet) 6 mg PO BEDTIME PRN PRN Reason: Insomnia Multivitamins/Vitamin C (Multivitamin Tablet) 1 tab PO DAILY [facility] Stop: 10/22/25 08:59 Last Admin: 10/19/25 07:21 Dose: 1 tab Ondansetron HCl (Ondansetron Hcl 4 Mg/2 Ml Vial) 4 mg IVPUSH Q8H PRN PRN Reason: Nausea and Vomiting Last Admin: 10/19/25 11:05 Dose: 4 mg Pantoprazole Sodium (Pantoprazole Sodium 40 Mg/10 Ml Vial) 40 mg IVPUSH DAILY@0630 [facility] Last Admin: 10/19/25 06:00 Dose: 40 mg Pharmacy Consult (Consult Rx Etoh Phenob Im/Po) 1 each MISCELLANE ONCE PRN; Protocol PRN Reason: Consult order Phenobarbital (Phenobarbital 15 Mg Tablet) 45 mg PO BID [facility]; Protocol Stop: 10/21/25 09:01 Phenobarbital (Phenobarbital 15 Mg Tablet) 15 mg PO BID [facility]; Protocol Stop: 10/23/25 09:01 Phenobarbital (Phenobarbital 15 Mg Tablet) 15 mg PO DAILY [facility]; Protocol Stop: 10/25/25 09:01 Risperidone (Risperidone 1 Mg Tablet) 1 mg PO BID [facility] Sodium Chloride (0.9 % Sodium Chloride Flush 3 Ml Syringe) 3 ml IVFLUSH QSHIFT [facility] Last Admin: 10/19/25 06:50 Dose: Not Given Sucralfate (Sucralfate 1 Gm Tablet) 1 gm PO BIDAC [facility] Temazepam (Temazepam 15 Mg Capsule) 15 mg PO BEDTIME PRN PRN Reason: Insomnia Thiamine HCl (Thiamine Hcl 100 Mg Tablet) 100 mg PO DAILY [facility] Stop: 10/22/25 08:59 Last Admin: 10/19/25 07:21 Dose: 100 mg Trazodone HCl (Trazodone Hcl 100 Mg Tablet) 100 mg PO BEDTIME PRN PRN Reason: Insomnia HOGSHEAD STRIPPER Physical Exam Vitals Vital signs: Temp Pulse Resp BP Pulse Ox O2 Del Method 98.4 F 68 16 124/72 98 Room Air 10/19/25 14:22 10/19/25 14:22 10/19/25 14:22 10/19/25 14:22 10/19/25 14:22 10/19/25 14:22 BMI result Body Mass Index 23.0 Abdomen Auscultation/Inspection/Palpation: Normal bowel sounds and Soft Female Genitalia (Pelvic) Exam: Declined by Patient HOGSHEAD STRIPPER - Results Labs 10/19/25 10:59 10/19/25 10:58 Labs: Short CBC 10/19/25 Range/Units 10:59 WBC 9.8 (4.8-10.8) X10*3/uL Hgb 12.2 D (12.0-16.0) g/dl Hct 35.3 L D (37.0-47.0) % Plt Count TNP BMP 10/19/25 10:58 Sodium 136 Potassium 4.0 Chloride 106 Carbon Dioxide 22 BUN 9 Creatinine 0.57 Calcium 8.6 D Liver Function 10/19/25 Range/Units 10:58 Total Bilirubin 0.5 (0.0-1.0) mg/dL AST 27 (5-31) U/L ALT 13 (0-31) U/L Alkaline Phosphatase 89 (39-117) U/L Albumin 3.9 (3.5-5.0) g/dL Imaging US - abdomen: Radiologist's impression: ITS Impressions Abdomen Ultrasound 10/19/25 14:25 IMPRESSION: 1. Cholelithiasis without evidence of acute cholecystitis. Negative sonographic Alvarenga's sign. Of note, there are gallstones within the gallbladder neck. 2. No biliary ductal dilatation. Electronically signed by: Arslan Philip MD 10/19/2025 02:34 PM EST RP Pelvic/Transvag US 10/19/25 14:38 IMPRESSION: No IUP is identified. 2.8 x 1.6 x 1.7 cm heterogeneous left adnexal mass, highly suspicious for an ectopic gestation. Findings were discussed with Dr. Gelacio Toussaint by secure text message on 10/19/2025 at 2:30 PM. Electronically signed by: Maynor Mcclellan MD 10/19/2025 02:33 PM EST RP Assessment and Plan (1) Ectopic : Status: Acute Discussed with the patient the findings on ultrasound left adnexal mass suspicious for ectopic with no evidence of intrauterine . Since the patient has no evidence of early rupture or intra-abdominal bleed, she is a candidate for methotrexate treatment . Since the are no nurses with certification for methotrexate injection at [facility], recommended transfer the patient to tertiary care center for admission for alcohol/per polysubstance abuse, in addition to methotrexate treatment angelica. Case discussed with Dr. Armani Toussaint
--- NOTE | 2025-10-19 15:08 | PM.EVENT ---
Event Note Date of Service: 10/19/25 Event Note: Seen on afternoon rounds She had tested positive for test Ultrasound actually shows possible tubal in the left, no intrauterine Recommend Ob consult Discussed with the hospitalist service Time Spent With Patient Time: Total time managing care of this patient today ____ minutes.
--- NOTE | 2025-10-19 15:12 | PM.DS ---
DS: Providers Provider Date of Service: 10/19/25 Date of admission: 10/19/25 04:37 Date of discharge: 10/19/25 Primary care physician: [facility] Consults: 10/19/25 04:57 Consult to General Surgery [place]ine [place] [facility] [place] [facility] Reason for consultation: Acute cholecystitis 10/19/25 10:47 Consult to Obstetrics / Gynecology Routine Consulting Provider: Geoff Abdalla Reason for consultation: /abdominal pain Has provider been notified: No DS: Transfer Hospital Acceptance Reason for Transfer: ectopic , unable to give methotrexate Name of Facility: [facility] DS: Diagnosis Discharge Diagnosis (1) Ectopic : Status: Acute (2) Alcoholic intoxication: Status: Acute (3) Diabetes: Status: Acute DS: Summary Hospital Course Hospital Course: 29-year-old female with past medical history significant for alcohol use disorder, T2 dm, history of pancreatitis, PTSD, polysubstance use disorder, bipolar who presented to the hospital for abdominal pain. Patient reported drinking alcohol for the past 3 days, associated with nausea, vomiting, diarrhea. On admission alcohol level of 333, right upper quadrant ultrasound with findings concerning for acute cholecystitis. Patient was planned to go to [place], blood test obtained which was positive 241. OBGYN consulted, obtained transvaginal ultrasound which showed left adnexal mass suspicious for ectopic . OBGYN suggested on transferring to a tertiary center for methotrexate, as patient this time does not require surgery. Patient also being managed for alcohol withdrawal syndrome. Time Attestation Total time managing care of this patient today: 35 mintues. Discharge Coordination Time (in mins): 35 minutes Quality: Safe Use of Opioids Does Pt have an Active Cancer Diagnosis on the Problem List?: No Quality: Stroke Does the patient have a stroke diagnosis?: No Physical Exam Exam: Exam: General: SomnolentxOx2, complaining of pain Head: AT/NC ENT: Moist mucous membranes Neck: supple CVS; RRR, S1 S2 normal Lungs: Clear bilateral breath sounds, no wheezes or crackles Abd: generalized tenderness Ext: No edema and no calf tenderness MSK: moving all 4 limbs Skin: No cyanosis or edema Psych: Cooperative with exam Neurology: no focal deficit Vital Signs: Vital Signs: Last Vital Signs Temp 98.4 F 10/19/25 14:22 Pulse 68 10/19/25 14:22 Resp 16 10/19/25 14:22 BP 124/72 10/19/25 14:22 Pulse Ox 98 10/19/25 14:22 O2 Del Method Room Air 10/19/25 14:22 BMI result Body Mass Index 23.0 DS: Data Data Completed and Pending Completed studies during hospitalization [Text1]: Procedures Detoxification Services for Substance Abuse Treatment (09/16/25) Insertion of Infusion Device into Upper Vein, Percutaneous Approach (06/20/25) Labs on day of discharge: Laboratory Results - last 24 hr 10/19/25 10/19/25 10/19/25 02:55 03:12 03:16 WBC RBC Hgb Hct MCV MCH MCHC RDW Plt Count MPV Immature Gran % (Auto) Neut % (Auto) Lymph % (Auto) [place] % (Auto) Eos % (Auto) Baso % (Auto) Lymph # (Auto) [place] # (Auto) Eos # (Auto) Baso # (Auto) Abs Immat Gran (auto) Absolute Neuts (auto) Absolute Nucleated RBC Nucleated RBC % (auto) Smear Tech's Comments VBG pH 7.46 H VBG pCO2 25 VBG pO2 235 VBG HCO3 18 L VBG O2 Saturation 100.0 VBG Base Excess -3.3 Sodium Potassium Chloride Carbon Dioxide Anion Gap BUN Creatinine Estim Creat Clear Calc Estimated GFR POC Glucose 235 H Random Glucose Calcium Total Bilirubin AST ALT Alkaline Phosphatase Total Protein Albumin Beta-Hydroxybutyrate 0.19 Beta HCG, Quant 10/19/25 10/19/25 10/19/25 07:17 10:05 10:58 WBC RBC Hgb Hct MCV MCH MCHC RDW Plt Count MPV Immature Gran % (Auto) Neut % (Auto) Lymph % (Auto) [place] % (Auto) Eos % (Auto) Baso % (Auto) Lymph # (Auto) [place] # (Auto) Eos # (Auto) Baso # (Auto) Abs Immat Gran (auto) Absolute Neuts (auto) Absolute Nucleated RBC Nucleated RBC % (auto) Smear Tech's Comments VBG pH VBG pCO2 VBG pO2 VBG HCO3 VBG O2 Saturation VBG Base Excess Sodium 136 Potassium 4.0 Chloride 106 Carbon Dioxide 22 Anion Gap 12 BUN 9 Creatinine 0.57 Estim Creat Clear Calc 131.0 Estimated GFR > 60 POC Glucose 220 H Random Glucose 171 H Calcium 8.6 D Total Bilirubin 0.5 AST 27 ALT 13 Alkaline Phosphatase 89 Total Protein 6.4 L Albumin 3.9 Beta-Hydroxybutyrate Beta HCG, Quant 241 10/19/25 10/19/25 10:59 12:39 WBC 9.8 RBC 4.04 L D Hgb 12.2 D Hct 35.3 L D MCV 87.4 MCH 30.2 MCHC 34.6 RDW 12.1 Plt Count TNP MPV TNP Immature Gran % (Auto) 0.4 Neut % (Auto) 61.7 Lymph % (Auto) 30.4 [place] % (Auto) 5.7 Eos % (Auto) 1.4 Baso % (Auto) 0.4 Lymph # (Auto) 3.0 [place] # (Auto) 0.6 Eos # (Auto) 0.1 Baso # (Auto) 0.0 Abs Immat Gran (auto) 0.04 H Absolute Neuts (auto) 6.0 Absolute Nucleated RBC 0.000 Nucleated RBC % (auto) 0.0 Smear Tech's Comments VERIFIED VBG pH VBG pCO2 VBG pO2 VBG HCO3 VBG O2 Saturation VBG Base Excess Sodium Potassium Chloride Carbon Dioxide Anion Gap BUN Creatinine Estim Creat Clear Calc Estimated GFR POC Glucose 173 H Random Glucose Calcium Total Bilirubin AST ALT Alkaline Phosphatase Total Protein Albumin Beta-Hydroxybutyrate Beta HCG, Quant Discharge Plan Discharge Anticipated Discharge Date/Time: 10/19/25 20:12 Patient Disposition: Xfer Acute Care Hospital Discharge Diagnosis: Ectopic Cholecystitis Alcohol use disorder with withdrawal Referrals: [facility] [Other] - 1 Week [facility] [Primary Care Provider, Medical] - 1 Week Discharge Medications: New acetaminophen 325 mg Tablet 650 mg PO Q6H PRN (Reason: Pain, Mild 1-3,Fever,Headache) Qty: 10 0RF metronidazole in NaCl (iso-os) 500 mg/100 mL Piggyback 500 mg IV Q8H Qty: 2400 0RF ceftriaxone 1 gram Recon Soln 1 g IV Q24H Qty: 1 0RF phenobarbital 15 mg Tablet 45 mg PO BID Qty: 7 0RF phenobarbital 15 mg Tablet 15 mg PO BID Qty: 7 0RF phenobarbital 15 mg Tablet 15 mg PO DAILY Qty: 7 0RF hydromorphone 1 mg/mL Syringe 0.5 mg IVPUSH Q4H PRN (Reason: Breakthrough Pain) Qty: 10 0RF Protocol: Hold for RR < HOLD and contact provider for RR < (bpm): 12 Rx Instructions: Partial Fill upon patient request. pantoprazole [Protonix] 40 mg Recon Soln 40 mg IVPUSH DAILY@0630 Qty: 1 0RF folic acid 1 mg Tablet 1 mg PO DAILY Qty: 14 0RF insulin lispro [Admelog U-100 Insulin lispro] 100 unit/mL Solution See Protocol subcut QIDACHS Qty: 3 0RF Protocol: Insulin Correction Scale Less than or equal to 110 ---- Give (units): 0 111 to 150 Give (units): 0 151 to 200 Give (units): 2 201 to 250 Give (units): 4 251 to 300 Give (units): 6 301 to 350 Give (units): 8 Greater than 350 Give (units): 10 Call MD if Blood Glucose > : 350 ondansetron HCl (PF) 4 mg/2 mL Solution 4 mg IVPUSH Q8H PRN (Reason: Nausea And Vomiting) Qty: 20 0RF thiamine mononitrate (vit B1) 100 mg Tablet 100 mg PO DAILY Qty: 7 0RF Continued hydroxyzine pamoate 100 mg capsule 100 mg PO QID PRN (Reason: anxiety) 30 Days Qty: 120 0RF sucralfate 1 gram Tablet 1 g PO BIDAC 30 Days Qty: 60 0RF trazodone 100 mg Tablet 100 mg PO BEDTIME PRN (Reason: Insomnia) 30 Days Qty: 30 0RF risperidone 1 mg tablet 1 mg PO BID 30 Days Qty: 60 0RF Discontinued clonidine HCl 0.1 mg tablet 0.1 mg PO TID 30 Days Qty: 90 0RF melatonin 3 mg Tablet 6 mg PO BEDTIME PRN (Reason: Insomnia) 30 Days Qty: 60 0RF omeprazole 40 mg Capsule,Delayed Release(Dr/Ec) 40 mg PO DAILY@0630 30 Days Qty: 30 0RF gabapentin 800 mg tablet 800 mg PO TID 30 Days Qty: 90 0RF glipizide 2.5 mg Tablet Extended Release 24hr 2.5 mg PO DAILY 30 Days Qty: 30 0RF oxcarbazepine 600 mg tablet 600 mg PO BID 30 Days Qty: 60 0RF metformin 750 mg tablet extended release 24 hr 750 mg PO BEDTIME 30 Days Qty: 30 0RF acamprosate 333 mg Tablet,Delayed Release (Dr/Ec) 333 mg PO TID 30 Days Qty: 90 0RF meclizine 25 mg tablet 25 mg PO BID PRN (Reason: nausea) Certavite-Antioxidant 18-400 mg-mcg tablet 1 tab PO DAILY Discharge Orders: Discharge Order (Routine); Ordered 10/19/25 Ordered By: Armani Toussaint Activity on Discharge: As tolerated Stand Alone Forms: Patient Portal Discharge page Print Language: Hebrew Care Plan Goals: transfer to tertiary center for ectopic , to use methotrexate continue with medications for anxiety and alcohol withdrawals Health Concerns: alcohol use disorder, alcohol withdrawal, ectopic , Cholelithiasis Plan of Treatment: phenobarbital for alcohol methotrexate for ectopic antibiotics for cholelithiasis Assessment: 29-year-old female with past medical history significant for alcohol use disorder, T2 dm, history of pancreatitis, PTSD, polysubstance use disorder, bipolar who presented to the hospital for abdominal pain. On labs found with alcohol level of 333, positive test. Transvaginal ultrasound with adnexal mass suspicious for ectopic . Per OBGYN, suggested on transferring to tertiary center for further management. Patient with withdrawals, also being treated with phenobarbital.
--- NOTE | 2025-10-19 15:30 | MHC.CM.PN ---
Addendum entered by Elisa Vicente 10/19/25 15:31: CORRECTION!! Transfer to [facility]. Original Note: Patient is being transferred to [facility].
--- NOTE | 2025-10-19 15:55 | PC.NURSE ---
Assumed care of pt at 1500. Pt resting quietly in bed. Pending transfer to [facility] for possible ectopic .
[2025-10-19 16:00] VITALS: BP 133/76; PULSE 80; RESP 16; O2SAT 96
[2025-10-19 17:43] LABS: Glucose, Whole Blood 144 mg/dL (60-115)
[2025-10-19 18:47] VITALS: BP 133/76; PULSE 80; RESP 16; TEMP 36.6; O2SAT 96
== END 2025-10-19 19:27 | disposition short-term general hospital (02) | DRG 566 ==
LOC: HO.ED 10-19 00:54 → HO.EDOVER 10-19 04:43
PROVIDERS: Admitting Provider Hospitalist; Emergency Provider Emergency Medicine; Visit Provider Student in an Organized Health Care Education/Training Program
DX: O00.102 Left tubal pregnancy without intrauterine pregnancy (principal); E11.9 Type 2 diabetes mellitus without complications; F17.210 Nicotine dependence, cigarettes, uncomplicated; F19.90 Other psychoactive substance use, unspecified, uncomplicated; F10.929 Alcohol use, unspecified with intoxication, unspecified; F10.930 Alcohol use, unspecified with withdrawal, uncomplicated; K80.20 Calculus of gallbladder without cholecystitis without obstruction; Z71.6 Tobacco abuse counseling; F43.10 Post-traumatic stress disorder, unspecified; E86.0 Dehydration; Z79.4 Long term (current) use of insulin; Z79.899 Other long term (current) drug therapy
CPT/HCPCS: 36415; 76705; 76801; 76817; 80053; 82010; 82803; 82947; 84702; 85025; 87040; 93005; 99285; J0696; J1171; J1200; J1308; J1630; J1650; J1836; J2405; J2470; J2560; J3360; J7120

== ENCOUNTER → 2025-10-19 01:32 | Outpatient (BNV) | payer MEDICAID, SELFPAY | PROVIDERS: Admitting Provider Hospitalist; Emergency Provider Emergency Medicine; Visit Provider Internal Medicine | DX: I49.9 Cardiac arrhythmia, unspecified (principal) | CPT/HCPCS: 93010 ==

== ENCOUNTER 2025-10-19 04:37 | Outpatient (BNV) | payer MEDICAID, SELFPAY | END 2025-10-19 14:38 | PROVIDERS: Admitting Provider Hospitalist; Emergency Provider Emergency Medicine; Visit Provider Radiology Diagnostic Radiology | DX: O02.81 Inappropriate change in quantitative human chorionic gonadotropin (hCG) in early pregnancy (principal); R10.84 Generalized abdominal pain; K80.20 Calculus of gallbladder without cholecystitis without obstruction | CPT/HCPCS: 76705; 76801; 76817 ==

== ENCOUNTER → 2025-10-19 04:37 | Outpatient (BNV) | payer MEDICAID, SELFPAY | PROVIDERS: Admitting Provider Hospitalist; Emergency Provider Emergency Medicine; Visit Provider Student in an Organized Health Care Education/Training Program | DX: F10.90 Alcohol use, unspecified, uncomplicated (principal) | CPT/HCPCS: 99234; 99499 ==

== ENCOUNTER → 2025-10-19 04:37 | Outpatient (BNV) | payer MEDICAID, SELFPAY | PROVIDERS: Admitting Provider Hospitalist; Emergency Provider Emergency Medicine; Visit Provider Surgery | DX: R10.13 Epigastric pain (principal) | CPT/HCPCS: 99222; 99499 ==

== ENCOUNTER → 2025-10-19 04:37 | Outpatient (BNV) | payer MEDICAID, SELFPAY | PROVIDERS: Admitting Provider Hospitalist; Emergency Provider Emergency Medicine; Visit Provider Obstetrics & Gynecology | DX: O00.90 Unspecified ectopic pregnancy without intrauterine pregnancy (principal) | CPT/HCPCS: 99223 ==

== ENCOUNTER 2025-10-23 12:01 | Emergency (ER) | payer MEDICAID, SELFPAY ==
--- OUTSIDE RECORDS SUMMARY | 2025-10-19 20:01 | XMS_ITS | Encounter Summary ---
Author Organization [facility] Address [address] [place] [address] Care Team Providers Care Tuft Machine Operator Name Role Phone Unavailable Primary Care Provider Unavailabl e Encounter Details Date Type Department Care Team (Latest Contact Info) Description 10/19/2025 8:01 PM EST - 10/22/2025 2:14 PM [facility] Hospital Encounter [facility] [address] [place] [address] Jose Trejo MD [address] [place] [id number] Juan Mayorga MD [address] [place] [id number] Angelia Zavala MD [address] [place] [id number] Khoa Parrish MD [address] [place] [address] Other ectopic without intrauterine (Primary Dx) Discharge Disposition: Home or Self Care Social History Tobacco Use Types Packs/Day Years Used Date Smoking Tobacco: Never Assessed PHQ-2 Answer Date Recorded PHQ-2 Total Score 6 10/20/2025 AUDIT-C Answer Date Recorded Q1: How often do you have a drink containing alcohol? Patient unable to answer 10/20/2025 Q2: How many drinks containi ng alcohol do you have on a typical day when you are drinking? Patient unable to answer Q3: How often do you have si x or more drinks on one occasion? Patient unable to answer 10/20/2025 Overall Financial Resource Strain (CARDIA) Answe r Date Recorded How hard is it for you to pa y for the very basics like food, housing, medical care, and heating? Not very hard 10/21/2025 Hunger Vital Sign Answer Date Recorded Within the past 12 months, y ou worried that your food would run out before you got the money to buy more. Patient declined Within the past 12 months, t he food you bought just didn't last and you didn't have money to get more. Patient declined PRAPARE - Transportation Answer Date Re corded In the past 12 months, has l ack of transportation kept you from medical appointments or from getting medications? Patient declined 10/21/2025 In the past 12 months, has l ack of transportation kept you from meetings, work, or from getting things needed for daily living? Patient declined 10/21/2025 Housing Stability Vital Sign Answer Israel e Recorded In the last 12 months, was t here a time when you were not able to pay the mortgage or rent on time? Patient declined 10/21/20 25 In the past 12 months, how m any times have you moved where you were living? 0 10/21/2025 At any time in the past 12 m [facility], were you homeless or living in a senior living (including now)? Patient declined 10/21/2025 [facility] Utilities Answer Date Recorded In the past 12 months has th e electric, gas, oil, or water company threatened to shut off services in your home? Patient declined 10/21/2025 Comments No Sex and Gender Information Value Date Recorded Sex Assigned at Not on file Legal Sex Female 4:49 PM EST Gender Identity Not on file Sexual Orientation Not on file documented as of this encounter Last Filed Vital Signs Vital Sign Reading Time Taken Comments Blood Pressure 123/70 10/22/2025 12:07 PM EST Pulse 90 10/22/2025 12:07 PM EST Temperature 36.3 C (97.4 F) 10/22/2025 12:07 PM EST Respiratory Rate 18 10/22/2025 12:07 PM EST Oxygen Saturation 97% 10/22/2025 12:07 PM EST Inhaled Oxygen Concentration - - Weight 62 kg (136 lb 11 oz) 10/19/2025 9:[address] Height - - Body Mass Index - - documented in this encounter Functional Status * AUDIT-C Score Answer Date of Assessment Author -1 10/20/2025 8:30 AM Kylee Douglas RN * Question Answer Date of Assessment Author AUDIT-C Total Score - Female -1 10/20/2025 8:30 AM Shaina Douglas RN Q1: How often do you have a drink containing alcohol? Patient unable to answer 10/20/2025 8:30 AM Shaina Douglas RN Q2: How many drinks containing alcohol do you have on a typical day when you are drinking? Patient unable to answer 10/20/2025 8:30 AM Shaina Douglas RN Q3: How often do you have six or more drinks on one occasion? Patient unable to answer 10/20/2025 8:30 AM Shaina Douglas RN * PHQ-2 Total Score Answer Date of Assessment Author 6 10/20/2025 8:30 AM Kylee Douglas RN * Question Answer Date of Assessment Author Little interest or pleasure in doing things Nearly every day 10/20/2025 8:30 AM Shaina Douglas RN Feeling down, depressed, or hopeless Nearly every day 10/20/2025 8:30 AM Shaina Douglas RN * Over the past 2 weeks, how often have you been bothered by any of the following problems? Question Answer Date of Assessment Author Patient Health Questionnaire -2 Score 6 10/20/2025 8:30 AM Shaina Douglas RN documented as of this encounter Discharge Summaries * Varsha Smith MD - 10/22/2025 12:05 PM EST Inpatient Discharge Summary [facility] Brief Overview Patient Demographics Name: Ibeth Sommers :1995 Admission Date: 10/19/2025 Admitting Provider: Juan Mayorga MD Discharge Date: 10/22/25 Discharge Provider: Khoa Parrish MD Discharge Disposition: Home Or Self Care Primary Care Provider at Discharge: No primary care provider on file. Primary Discharge Diagnosis Principal Problem (Resolved): Alcohol withdrawal with complication with inpatient treatment (HCC) (POA: Yes) Active Problems: Abdominal pain of multiple sites (POA: Unknown) Other ectopic without intrauterine (POA: Unknown) Bipolar disorder (HCC) (POA: Unknown) PTSD (post-traumatic stress disorder) (POA: Unknown) Liver mass (POA: Unknown) Discharge Medications Discharge Medications NEW MEDICATIONS acetaminophen 325 MG tablet; Commonly known as: TYLENOL; 975 mg, Oral, Every 6 hours PRN cloNIDine 0.1 MG tablet; Quantity: 90 tablet; Commonly known as: CATAPRES; 0.1 mg, Oral, 3 times daily folic acid 1 MG tablet; Quantity: 30 tablet; Commonly known as: FOLVITE; 1 mg, Oral, Daily; Start taking on: October 23, 2025 gabapentin 800 MG tablet; Quantity: 90 tablet; Commonly known as: NEURONTIN; 800 mg, Oral, 3 times daily ibuprofen 800 mg tablet; Quantity: 30 tablet; Commonly known as: MOTRIN; 800 mg, Oral, Every 8 hours PRN lidocaine 5 % patch; Quantity: 30 patch; Commonly known as: LIDODERM; 1 patch, Transdermal, Daily, Apply patch and leave on for 12 hours then remove. Patch may remain on skin for 12 hours per day.; Start taking on: October 23, 2025 multivitamin with minerals Tabs tablet; Quantity: 30 tablet; 1 tablet, Oral, Daily; Start taking on: October 23, 2025 OXcarbazepine 600 MG tablet; Quantity: 60 tablet; Commonly known as: TRILEPTAL; 600 mg, Oral, 2 times daily risperiDONE 1 MG tablet; Quantity: 60 tablet; Commonly known as: RisperDAL; 1 mg, Oral, 2 times daily sucralfate 1 GM/10ML suspension; Quantity: 1200 mL; Commonly known as: CARAFATE; 1 g, Oral, 4 times daily before meals and nightly, On an empty stomach. thiamine mononitrate 100 MG tablet; Quantity: 60 tablet; Commonly known as: VITAMIN B-1; 200 mg, Oral, Daily; Start taking on: October 23, 2025 traZODone 100 MG tablet; Quantity: 30 tablet; Commonly known as: DESYREL; 100 mg, Oral, Nightly No future appointments. Active Issues Requiring Follow-up - new diagnosis diabetes, A1c 9.5 Incidental hospital findings: new diagnosis diabetes Test Results Pending at Discharge Pending Labs Order Current Status Pathology In process Details of Hospital Stay Presenting Problem/History of Present Illness 29 y.o. with history of alcohol-induced pancreatitis, polysubstance use disorder, bipolar disorder, PTSD who presents with severe abdominal pain, nausea and vomiting admitted to Internal Medicine for further management. Per chart review, patient presented to an outside hospital yesterday (10/19) with the symptoms described above. A CT scan was ordered that was subsequently canceled due to a positive urine test. A Beta-hCG was noted to be 241 and a transvaginal ultrasound was formally read as left adnexalmass highly suspicious for ectopic approximately 2 cm. The provider at outside hospital contacted their on-call PERSONNEL CLERKS SUPERVISOR services who recommended methotrexate therapy which is not available at their hospital. They therefore initiated a transfer to for administration of methotrexate therapy if patient deemed a candidate. On 10/20 at bedside, patient reports having two days of intermittent RUQ/epigastric pain that she rates a 10 out of 10. Patient also endorses having intermittent nausea and vomiting. She endorses last drinking alcohol 3 days ago (1 pint of hard liquor). Patient is aware of positive test at outside hospital and states she is uncertain whether the would be desired. Patient denies having any fever, chills, pelvic pain, vaginal bleeding, vaginal discharge, leakage of fluid, vaginal discharge, dysuria, hematuria. Hospital Course Patient was a transfer of care in setting of alcohol withdrawal, abdominal pain and concern for ectopic in setting of positive test and left adnexal mass on ultrasound. On hospital day 1, Patient was admitted to medicine for management of alcohol withdrawal. PERSONNEL CLERKS SUPERVISOR was consultedfor concern for ectopic . On hospital day 2, Beta-hCG was noted to have increased to 159 from 155, and a repeat ultrasound showed the persistent left adnexal mass measuring 2.1 cm concerningfor ectopic . Patient continued to have abdominal pain with new vaginal bleeding, which was highly suspicion for ectopic . Given the clinical scenario and using shared decision making, patient was taken to the OR on 10/21/25 for a diagnostic laparoscopy and left salpingectomy in the setting of ectopic . Patient was transferred to the EDUCATION FACULTY MEMBER service after stabilization of alcohol withdrawal. Medicine had no further concern for alcohol withdrawal. Patient was doing well inthe post- operative period and met milestones on POD #1, was discharged home. Patient will follow [facility]. Message was sent for coordination of appointment. Patient incidentally noted to have elevated fingersticks requiring sliding scale insulin, A1c found to be 9.5. Patient to follow up outpatient for management of new diagnosis of diabetes. Procedures: Surgical/Procedural Cases on this Admission Case IDs Date Procedure Surgeon Location Status [id number] 10/21/25 LAPAROSCOPY DIAGNOSTIC, LEFT SALPINGECTOMY Khoa Parrish MD Main OR Comp Diagnostic Studies: Wound/Incision Pictures: Physical Exam at Discharge Discharge Condition: stable Last Vitals: Pulse:78,Resp:20,BP:104/64,SpO2:100 %,Weight: 62 kg (136 lb 11 oz) BMI: There is no height or weight on file to calculate BMI. Temp Last 24 hrs: Temp Min: 94.3 ??F (34.6 ??C) Max: 97.8 ??F (36.6 ??C) General: comfortable, ambulating within room Neck: IV catheter removed from left neck, no bleeding appreciated, dressing placed on top Abdomen soft, appropriately tender, nondistended, no rebound/guarding Incisions: lsc port sites well approximated with dressing on top, no surrounding erythema or induration, no drainage Discharge Orders DISCHARGE DIET Discharge activity: Specify Call your doctor for: Excessive vaginal bleeding Call your doctor for: Excessive pain not controlled by medication Call your doctor for: Foul smelling vaginal discharge Call your doctor for: Persistant nausea and vomiting Call your doctor for: Temperature over 101 degrees F Discharge instructions - Nothing per vagina Special Instructions? Nothing per vagina until followup appointment No hot tubs, swimming or tub baths Follow up appointment Code Status: Code Status Procedures Full code 4. Next of Kin (Spouse, Adult Child, Parent, Adult Sibling, Grandparent): Juan Antonio Watt - Parent - [phone] Activity Restrictions: lifting restrictions 15 lbs Time Spent on Discharge Total time spent for discharge: 30 minutes Time was spent in educating the patient, making a comprehensive discharge plan and discussion with the staff regarding the discharge plan, medication reconciliation and discharge summary Varsha Smith MD 10/22/2025 12:05 PM Cosigned by Jodie Lopez MD at 10/22/2025 12:28 PM EST Associated attestation - Jodie Lopez MD - 10/22/2025 12:28 PM EST Teaching Physician Note Reviewed chart and discussed the case with resident & team Agree with assessment and plan documented in this encounter Medications at Time of Discharge acetaminophen (TYLENOL) 325 MG tabletIndications: Other ectopic without intrauterine Take 3 tablets (975 mg total) by mouth 4 times daily (every 6 hours) as needed for mild pain. 10/22/2025 5 cloNIDine (CATAPRES) 0.1 MG tabletIndications: Other ectopic without intrauterine Take 1 tablet (0.1 mg total) by mouth 3 (three) times a day. 90 tablet 10/22/2025 5 folic acid (FOLVITE) 1 MG tabletIndications: Other ectopic without intrauterine Take 1 tablet (1 mg total) by mouth daily. 30 tablet 10/23/2025 5 gabapentin (NEURONTIN) 800 MG tabletIndications: Other ectopic without intrauterine Take 1 tablet (800 mg total) by mouth 3 (three) times a day. 90 tablet 10/22/2025 5 ibuprofen (MOTRIN) 800 mg tabletIndications: Other ectopic without intrauterine Take 1 tablet (800 mg total) by mouth 3 times daily (every 8 hours) as needed for mild pain. 30 tablet 10/22/2025 5 lidocaine (LIDODERM) 5 % patchIndications:O ther ectopic without intrauterine Place 1 patch on the skin daily. Apply patch and leave on for 12 hours then remove. Patch may remain on skin for 12 hours per day. 30 patch 10/23/2025 5 multivitamin with minerals Tab tabletIndications: Other ectopic without intrauterine Take 1 tablet by mouth daily. 30 tablet 10/23/2025 5 OXcarbazepine (TRILEPTAL) 600 MG tabletIndications: Other ectopic without intrauterine Take 1 tablet (600 mg total) by mouth 2 (two) times a day. 60 tablet 10/22/2025 5 risperiDONE (RisperDAL) 1 MG tabletIndications: Other ectopic without intrauterine Take 1 tablet (1 mg total) by mouth 2 (two) times a day. 60 tablet 10/22/2025 5 sucralfate (CARAFATE) 1 GM/10ML suspensionIndicati ons:Other ectopic without intrauterine Take 10 mL (1 g total) by mouth 4 (four) times a day before meals and nightly. On an empty stomach. 1200 mL 10/22/2025 5 thiamine mononitrate (VITAMIN B-1) 100 MG tabletIndications: Other ectopic without intrauterine Take 2 tablets (200 mg total) by mouth daily. 60 tablet 10/23/2025 5 traZODone (DESYREL) 100 MG tabletIndications: Other ectopic without intrauterine Take 1 tablet (100 mg total) by mouth nightly. 30 tablet 10/22/2025 5 documented as of this encounter Progress Notes * Qasim Monte - 10/22/2025 12:06 PM EST Final Case Management Care Plan Note Summary: Per provider, patient is medically ready to transition home. Confirmed that patient is able to obtain medications/food/necessities post discharge. Final Destination: home routine Plan for home support/Caregiver/responsible person: self Follow-up provider appointment: Per AVS/W-10 Equipment Ordered and Given at Discharge: none Final Discharge Transportation: Taxi 10/22/25 1200 Plan Plan home Patient/Family in Agreement with Plan yes Final Discharge Disposition Code 01 - home or self-care * Varsha Smith MD - 10/22/2025 11:59 AM EST Brief Progress Note Notified by RN that patient desires discharge home. At bedside to assess. Patient reports significant improvement in pain since AM rounding, now well controlled. Tolerating regular diet, passing gas,ambulating without dizziness. Exam: Neck: IV catheter removed from left neck, no bleeding appreciated, dressing placed on top Abdomen soft, appropriately tender, nondistended, no rebound/guarding Incisions: lsc port sites well approximated with dressing on top, no surrounding erythema or induration, no drainage 29 y.o. female initially admitted for suspected alcohol withdrawal and abdominal pain, subsequentlyfound to have abnormal quantitative bHCG, now POD#1 s/p diagnostic laparoscopy and left salpingectomy for left ectopic . Now meeting postop milestones. Stable for discharge home. Ride set upby case management. Discussed with Dr. Brito, PGY-4 Varsha Smith MD PGY-1, Obstetrics & Gynecology * Kamla De Leon MD - 10/22/2025 9:17 AM EST EDUCATION FACULTY MEMBER Progress Note - delayed charting due to care of other patients and floor acuity Assessment & Plan Assessment 29 y.o. female initially admitted for suspected alcohol withdrawal and abdominal pain, subsequentlyfound to have abnormal quantitative bHCG, now POD#1 s/p diagnostic laparoscopy and left salpingectomy for left ectopic . Doing well post-operatively, though with suboptimal pain control, though patient declining MMPR, primarily desires dilaudid. Appropriate decrease in hgb. Starting to meet post-op milestones, though hasn't taken much PO. Plan Neuro: MMPR - tylenol ATC, ibuprofen ATC, PRN dilaudid. Will add lidocaine patch for added analgesia. - Home clonidine, oxcarbazepine, trazodone, and risperidone ordered CV: VSS, though asymptomatic hypotension this AM, now resolved. Bps 90-110/50-70s. Pulm: No acute issues. Saturating well on room air. GI: Advance to regular diet as tolerated Renal / : Voiding without issue. Endocrine: FS 200-300s. A1c collected and resulted at 9.5 Heme: Hgb 11.7 > EBL 5cc > 11.5 VTE Ppx: ambulation, SCDs Dispo: Possible discharge later today pending meeting milestones Sign Kamla De Leon MD (She/her) PERSONNEL CLERKS SUPERVISOR PGY-3 Pager: [phone] 10/22/2025 9:17 AM Subjective Pt reporting pain, desires dilaudid. Says she doesn't think the tylenol and ibuprofen work. Pain well-controlled. Hasn't eaten but denies nausea or emesis. Voiding without issues. Not yet passing flatus. Ambulating without difficulty. Denies ENCARNACION, fever, chills, CP, SOB. Objective Last Vitals Pulse:78,Resp:20,BP:104/64,SpO2:100 %,Weight:62 kg (136 lb 11 oz) Temp Last 24 hrs: Temp Min: 94.3 ??F (34.6 ??C) Max: 97.8 ??F (36.6 ??C) Intake/Output Summary (Last 24 hours) at 10/22/2025 0917 Last data filed at 10/22/2025 0305 Gross per 24 hour Intake 36 ml Output 1 ml Net 35 ml Physical Exam General appearance: NAD, resting comfortably Lungs: CTAB Heart: RRR Abdomen: soft, moderately tender, RLQ>LLQ, nondistended Incision: lsc port sites with skin glue in place, well approximated. Extremities: no LE edema, PAS stockings in place Pertinent LABS Notable labs are: Lab Results Component Value Date WBC 5.5 10/22/2025 HGB 11.5 (L) 10/22/2025 HCT 33.7 (L) 10/22/2025 PLT 136 (L) 10/22/2025 * Velma Chavez MD - 10/21/2025 7:51 PM EST EDUCATION FACULTY MEMBER Progress Note Assessment & Plan Assessment 29 y.o. admitted to Internal Medicine team for EtOH withdrawal and abdominal pain now POD#0s/p diagnostic lap and left salpingectomy for an ectopic . Patient endorsing severe abdominal pain, previously declining scheduled PO meds. Abdominal exam with appropriate post-op abdominal tenderness. Starting to meet post-operative milestones. Plan 1) Neuro: - Continue multimodal pain regimen including scheduled Tylenol 975 mg q6h, Ibuprofen 800 mg q8h andPRN IV dilaudid 0.5 mg and 1 mg - Encouraged patient to take scheduled pain medications for better pain control - Home clonidine 0.1 mg TID, Risperidone 1 mg ordered 2) CV: VSS, no acute issues 3) Pulm: No acute issues 4) GI: Regular diet 5) Renal/: No roland, patient due to void 6) Heme: No signs or symptoms of anemia 7) ID: No signs of infection. 8) EDUCATION FACULTY MEMBER: Minimal vaginal bleeding. Follow up final pathology. 9) DVT prophylaxis: Ambulation, encourage SCDs 10) Full code Sign: Velma Chavez MD PGY-2 [facility] OBGYN residency Pager #[phone] Also available on [place] Text Subjective In to post-op round on patient. Patient sitting at edge of bed. Endorses 9/10 pain. Per RN, patientgot IV dilaudid at 6:30 pm but declining any PO meds. Tolerating regular diet without nausea or vomiting. Ambulating, has not voided yet. Reports scant vaginal bleeding. Passing flatus, no bowel movement. Denies fever, chills, CP, SOB, dizziness, palpitations, headache. Objective Vitals: 10/21/25 1645 10/21/25 1700 10/21/25 1817 10/21/252019 BP: 128/79 121/80 118/86 116/66 BP Location: Right arm Left arm Right arm Patient Position: Sitting Lying Lying Pulse: 68 78 61 Resp: (!) 22 (!) 22 18 20 Temp: 96.8 ??F (36 ??C) 97.8 ??F (36.6 ??C) 96.9 ??F (36.1 ??C) TempSrc: Axillary Tympanic Tympanic SpO2: 98% 96% 99% Weight: Physical Exam General appearance: Does not appear in 9/10 pain or in acute distress. Ambulating to the foot of the bed. Lungs: No increased work of breathing Abdomen: Soft, appropriately tender. Non-distended. No rebound or guarding. 3 port site incisions covered with gauze and Tegaderm (clean/dry/intact). Pelvic: Deferred Extremities: No edema, nontender. Pertinent LABS Lab Results Component Value Date WBC 5.7 10/20/2025 HGB 11.7 10/20/2025 HCT 35.0 10/20/2025 MCV 88 10/20/2025 PLT 181 10/20/2025 * Angelia Zavala MD - 10/21/2025 2:44 PM EST Progress Note Hospital Day: 3, Admit Date: 10/19/2025 Assessment and plan: Ms. Sommers is a 29 y.o. female with past medical history of alcohol use disorder who was transferredfrom outside hospital for management of possible ectopic . Assessment & Plan Alcohol withdrawal with complication with inpatient treatment (HCC) (Resolved: 10/21/2025) Bipolar disorder (HCC) PTSD (post-traumatic stress disorder) -Patient is not under influence of any alcohol and therefore CIWA discontinued, diazepam discontinued - I also discontinued her home meds including Trileptal, trazodone and gabapentin yesterday given her drowsy status since she received phenobarb and Valium at outside hospital for possible withdrawal - I will resume this medication tomorrow as patient underwent laparoscopic intervention today for her ectopic Other ectopic without intrauterine Abdominal pain of multiple sites -Status post diagnostic laparoscopy - Status post left salpingectomy for her ectopic Liver mass -Patient noted to have 4.5 cm echogenic mass in the right hepatic lobe - Will get MRI abdomen liver protocol for definitive characterization will consult GI for above I have updated the Patient and addressed their concerns. Barriers to patient transition/ medical necessity requiring continued inpatient stay patient with Quality metrics: # Telemetry: Active Telemetry Order Indication - Hemodynamic Instability Continue Telemetry?: Yes Hemodynamic Instability # Diet: Diet NPO; Meds # Code status: Full Code # Roland catheter: No Active Urethral Catheter (Roland) Order # Central lines: # Expected Date of Discharge: 10/24/2025 {Click to update GRIS: [id number]} VTE Time Out IMPROVE SCORE: 0 (10/19/2025 9:09 PM) Interpretation - Low Risk Chemical Prophylaxis Low VTE risk Mechanical Prophylaxis SCDs are ordered - Bilateral (Knee High) Patient declined SCD use, Please review Subjective: Chief complaint No chief complaint on file. Patient is being seen for acute medical problems and follow-up for chronic medical issues as mentioned in the assessment and plan above. # Event overnight: No acute events reported Ms. Sommers was seen earlier today. she reported feeling ok Objective: Last 3 Filed Values 10/20/25205810/21/25 0050 10/21/25 0437 BP: (!) 139/92 97/72 114/81 Pulse: 89 65 88 Resp: Temp: (!) 96.2 ??F (35.7 ??C) (!) 96 ??F (35.6 ??C) TempSrc: Tympanic Tympanic Tympanic SpO2: 100% 99% 100% SpO2 Min: 92 % Max: 100 % O2 Device: room air (none) Weight: on admission: 62 kg (136 lb 11 oz), (10/19/2025 9:33 PM) Recent: 62 kg (136 lb 11 oz), (10/19/2025 9:33 PM) Last Documented Bowel Movement - 10/20/25 (10/21/25 0830) Intake/Output Summary (Last 24 hours) at 10/21/2025 1444 Last data filed at 10/21/2025 0830 Gross per 24 hour Intake 50 ml Output -- Net 50 ml Physical Exam Constitutional - not in acute distress. Head - normocephalic. Eyes - PERRL. Nose - appears normal. Neck - supple. Cardiovascular - normal rate. Pulmonary - breath sounds present bilaterally. no wheezing and no crackles. Abdominal - soft. no tenderness. Skin - warm. Neurological - alert and oriented x 4. Scheduled medications 10/21/25 2:44 PM As needed medications: cloNIDine, 0.1 mg, Oral, TID folic acid, 1 mg, Oral, Daily [Provider Held] gabapentin, 800 mg, Oral, TID insulin lispro, 1-5 Units, Subcutaneous, Q4H KATHY multivitamin with minerals, 1 tablet, Oral, Daily [Provider Held] OXcarbazepine, 600 mg, Oral, BID risperiDONE, 1 mg, Oral, BID senna-docusate, 2 tablet, Oral, Nightly sucralfate, 1 g, Oral, Before meals & nightly thiamine, 200 mg, Oral, Daily [Provider Held] traZODone, 100 mg, Oral, Nightly acetaminophen bisacodyl glucose OR glucose OR dextrose OR dextrose OR glucagon haloperidol lactate HYDROmorphone HYDROmorphone lactulose naloxone ondansetron Current infusions: lactated ringers, 150 mL/hr, Last Rate: 150 mL/hr (10/19/25 5075) Diagnostic studies: I have reviewed the labs and ordered new labs if needed. Recent Labs 10/20/25 0100 10/20/25 0459 10/20/252224 WBC 5.9 5.6 5.7 HGB 11.0* 11.4* 11.7 HCT 32.4* 33.3* 35.0 PLT 156 170 181 Recent Labs 10/20/25 0100 10/20/25 0459 10/20/25 2225 10/21/25 0740 NA 133* 136 131* Add-on cannot be performed, specimen stability . K 3.2* 3.3* 3.6 Add-on cannot be performed, specimen stability . CO2 25 25 24 Add-on cannot be performed, specimen stability . CL 99 102 95* Add-on cannot be performed, specimen stability . BUN 7* 7* 6* 6* CREAT 0.38* 0.44 0.40 0.47 CALCIUM 8.6* 8.5* 8.7 9.6 BILITOT 0.4 0.4 0.2 -- ALKPHOS 97 92 109 -- AST 50 39 35 -- ALT 23 20 25 -- ALBUMIN 3.6 3.3* 3.9 -- No results for input(s): PT , PTT , INR in the last 72 hours. No results for input(s): SARSCOV2 , INFLAV , INFLBV in the last 72 hours. Blood Culture Results Since Admission No results found for this visit on 10/19/25. Urine Culture Results Since Admission No results found for this visit on 10/19/25. Angelia Zavala MD * Nancy Amaya RN - 10/21/2025 2:36 PM EST 10/21/25 6114 General Information Admission Type inpatient Arrived From Non-Healthcr Initial Information How to be Addressed Ibeth Source of Information patient;health record Limitations on Visitors/Phone Calls none Designated Caregiver for Discharge Coordination Do You Have a Designated Caregiver for Discharge? yes Designated Caregiver's Name Jeovany Watt Caregiver's Relationship to Patient parent Living Environment People in Home parent(s) Name(s) of People in Home Jeovany Current Living Arrangements home Primary Care Provided by self Provides Primary Care For no one Family Caregiver if Needed parent(s) Family Caregiver Names Jeovany Relationship/Environment Primary Source of Support/Comfort parent Name of Support/Comfort Primary Source Jeovany Resource/Environmental Concerns Resource/Environmental Concerns none Transportation Concerns none Disability/Function Hearing Difficulty or Deaf no Visual Difficulty or Blind no Difficulty Concentrating, Remembering or Making Decisions no Communication Difficulty no Eating/Swallowing Difficulty no Walking or Climbing Stairs Difficulty no Dressing/Bathing Difficulty no Difficulty Managing Errands Independently no Equipment Currently Used at Home none Functional Status, IADL Medications independent Meal Preparation independent Housekeeping independent Laundry independent Shopping independent Financial Resource Strain How hard is it for you to pay for the very basics like food, housing, medical care, and heating? Not very Do you have any concerns about your current source of income or benefits No Living Arrangement Living arrangement: Family members;Parent Type of residence: Private residence Housing Stability In the last 12 months, was there a time when you were not able to pay the mortgage or rent on time?Pt Declined In the past 12 months, how many times have you moved where you were living? 0 At any time in the past 12 months, were you homeless or living in a senior living (including now)? Pt Declined Food Insecurity Within the past 12 months, you worried that your food would run out before you got the money to buymore. Pt Declined Within the past 12 months, the food you bought just didn't last and you didn't have money to get more. Pt Declined Transportation Needs In the past 12 months, has lack of transportation kept you from medical appointments or from getting medications? Pt Declined In the past 12 months, has lack of transportation kept you from meetings, work, or from getting things needed for daily living? Pt Declined Utilities In the past 12 months has the [employer], gas, oil, or water [employer] threatened to shut off services in your home? Pt Declined Interpersonal Safety Within the last year, have you been humiliated or emotionally abused in other ways by anyone? Patient declined Within the last year, have you been kicked, hit, slapped, or otherwise physically hurt by anyone? Patient declined Discharge Needs Assessment Readmission Within the Last 30 Days no previous admission in last 30 days Concerns to be Addressed basic needs;discharge planning Patient/Family Anticipates Transition to home with family Patient/Family Anticipated Services at Transition none Transportation Anticipated other (see comments) Anticipated Changes Related to Illness none Equipment Needed After Discharge none Discharge Coordination/Tasks Status PASRR Completed No Level of Care Completed No Plan Plan home Patient/Family in Agreement with Plan yes * Donna Graff LCSW - 10/21/2025 12:31 PM EST Images from the original note were not included. Health Social Work Brief Note Date: 10/21/2025 Contact Reason: Substance Use Previous Social Work Encounters: 10/20/25 Ibeth Sommers is a 29 y.o. female currently admitted for: Alcohol withdrawal with complication with inpatient treatment (HCC) Assessment/Summary SW reviewed chart. SW met with pt and introduced self and role. Pt was difficult to redirect throughout the conversation and repetitively stated that she wants to go home. When asked what caused pt to be admitted to the hospital, pt responded, Alcohol. Pt reported that she resides with her father and her uncle in [facility]. 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 Pt reported that she has 3 children,a 12 yo, 9 yo, and 8 yo. SW acknowledged positive test and pt confirmed that she is aware. When asked how pt is feeling re: that finding, pt responded, Normal, and did not want to furtherdiscuss the topic. In re: substance use, pt denied any substance use and stated that she does not typically drink, she only drank this one time prior to hospitalization. Pt declined to speak further re: substance use and stated that she did not want any additional support. Pt ended conversation with SW and walked out of room to look for MD. Recommendations/Plan No further SW intervention indicated; will close at this time Sign: Donna Graff LCSW * Patrick Dye MD - 10/21/2025 7:13 AM EST EDUCATION FACULTY MEMBER AM Progress Note Assessment & Plan Assessment 29 y.o. with complex medical history including polysubstance use disorder with hx of ETOH induced pancreatitis who presented to OSH for ETOH withdrawal and abdominal pain, incidentally found to have of unknown location, with concern for ectopic . Patient was transferred to for further coordination of management. Patient with VB bleeding this morning. Hemodynamically stable. B-hcg most recently decreasing. Deferential diagnosis includes early loss vs. ectopic , needs further evaluation. Plan - Please ensure adequate pain control to support patient's comfort and reduce risk of leaving AMA/elopement before essential work-up is completed. - Trend b-hCG, ordered for this morning. Current decreasing trend 500 > 460 > 254 > 124, could represent early loss. - Continue to monitor patient's vaginal bleeding bleeding and pain - Recommend TVUS this morning. EDUCATION FACULTY MEMBER will perform appropriate counseling for management, medication vs. surgical management based on ultrasound findings and overall clinical picture when patient is able to participate in conversation. - No imaging studies or medication should be withheld in the setting of of unknown location. She should undergo the standard of care work-up for abdominal pain. - Rest of the care per primary team - Please TT Gynecology with any questions or concerns especially regarding medication or imagingsafety Patrick Dye MD [facility], PGY2 TT Gynecology for any questions or concerns 10/21/25 7:13 AM Subjective Patient walking the hallway complaining of pain this morning. Reports that she is having lower abdominal pain. She would like IV Dilaudid and not IM given IM method does not work for her. She also reports she does not find relief with tylenol. She reports having having vaginal bleeding that startedyesterday. Reporting saturating multiple pads overnight. Denies fever, chills, lightheadedness, SOB/CP Objective Physical exam Last Vitals: Vitals: 10/21/25 0437 BP: 114/81 Pulse: 88 Resp: 18 Temp: (!) 96 ??F (35.6 ??C) SpO2: 100% Weight: Intake/Output Summary (Last 24 hours) at 10/21/2025 0771 Last data filed at 10/20/2025 9937 Gross per 24 hour Intake 70 ml Output -- Net 70 ml Gen: NAD Pulm: No increased WOB Abd: Soft, tender to palpation lower abdomen, nondistened, no rebound or guarding Ext: No calf tenderness bilaterally, No edema : Pad centrally saturated with bright red blood (<50% of the pad) Labs: Recent Results (from the past 24 hours) POCT Glucose, Fingerstick Collection Time: 10/20/25 8:15 AM Specimen: Blood Result Value Ref Range POC Glucose 140 (H) 65 - 99 mg/dL POCT Glucose, Fingerstick Collection Time: 10/20/25 11:40 AM Specimen: Blood Result Value Ref Range POC Glucose 182 (H) 65 - 99 mg/dL POCT Glucose, Fingerstick Collection Time: 10/20/25 4:59 PM Specimen: Blood Result Value Ref Range POC Glucose 149 (H) 65 - 99 mg/dL POCT Glucose, Fingerstick Collection Time: 10/20/25 9:09 PM Specimen: Blood Result Value Ref Range POC Glucose >500 (H) 65 - 99 mg/dL POCT Glucose, Fingerstick Collection Time: 10/20/25 9:27 PM Specimen: Blood Result Value Ref Range POC Glucose 460 (H) 65 - 99 mg/dL B-Hydroxybutyrate Collection Time: 10/20/25 10:25 PM Specimen: Blood Result Value Ref Range B-Hydroxybutyrate <0.05 <0.28 mmol/L Complete Blood Count, with Differential Collection Time: 10/20/25 10:25 PM Specimen: Blood Result Value Ref Range White Blood Cell Count 5.7 4.0 - 11.0 Thou/uL Platelet Count 181 150 - 450 Thou/uL Hemoglobin 11.7 11.7 - 15.7 g/dL Hematocrit 35.0 35.0 - 47.0 % Red Blood Cell Count 3.98 (L) 4.00 - 5.40 Mil/uL MCV 88 80 - 100 fL MCH 29.4 26.0 - 34.0 pg MCHC 33.4 30.0 - 36.0 g/dL RDW 11.9 11.5 - 14.5 % MPV 10.0 7.5 - 12.5 fL Neutrophils Auto 66.2 % Immature Granulocytes 0.3 % Lymphocytes Auto 26.4 % Monocytes Auto 4.2 % Eosinophils Auto 2.6 % Basophils Auto 0.3 % Abs Neutrophils Auto 3.79 2.00 - 7.50 Thou/uL Abs Immature Granulocytes 0.02 0.00 - 0.10 Thou/uL Abs Lymphocytes Auto 1.51 1.50 - 4.50 Thou/uL Abs Monocytes Auto 0.24 0.20 - 1.50 Thou/uL Abs Eosinophils Auto 0.15 0.00 - 0.70 Thou/uL Abs Basophils Auto 0.02 0.00 - 0.20 Thou/uL Comprehensive Metabolic Panel Collection Time: 10/20/25 10:25 PM Specimen: Blood Result Value Ref Range Glucose 404 (HH) 65 - 99 mg/dL Blood Urea Nitrogen (BUN) 6 (L) 8 - 21 mg/dL Creatinine 0.40 0.40 - 1.10 mg/dL eGFR >90 >59 Sodium 131 (L) 136 - 145 mmol/L Potassium 3.6 3.4 - 5.3 mmol/L Chloride 95 (L) 98 - 107 mmol/L CO2 24 22 - 33 mmol/L Calcium 8.7 8.7 - 10.5 mg/dL Alkaline Phosphatase 109 32 - 122 U/L Aspartate Aminotrans (AST) 35 10 - 50 U/L Alanine Aminotrans (ALT) 25 10 - 50 U/L Bilirubin, Total 0.2 0.2 - 1.0 mg/dL Protein, Total 6.3 6.3 - 8.3 g/dL Albumin 3.9 3.5 - 5.0 g/dL BUN/Creatinine Ratio 15 10.0 - 25.0 Ratio Globulin 2.4 1.5 - 3.9 g/dL Albumin/Globulin Ratio 1.6 1.0 - 3.0 Ratio Anion Gap 12 7 - 17 Osmolality Collection Time: 10/20/25 10:25 PM Specimen: Blood Result Value Ref Range Osmolality, Serum/Plasma 293 275 - 295 mOsm/Kg POCT Glucose, Fingerstick Collection Time: 10/21/25 12:53 AM Specimen: Blood Result Value Ref Range POC Glucose 254 (H) 65 - 99 mg/dL POCT Glucose, Fingerstick Collection Time: 10/21/25 4:49 AM Specimen: Blood Result Value Ref Range POC Glucose 124 (H) 65 - 99 mg/dL Cosigned by Khoa Parrish MD at 10/21/2025 1:29 PM EST Associated attestation - Khoa Parrish MD - 10/21/2025 1:29 PM EST Teaching Physician Attestation Level of Participation I have personally interviewed and examined the patient and reviewed Dr. Dye's note. I agree withthe history, exam, assessment and plan as detailed in the resident/fellow's note with the followingadditions/exceptions/observations: Ibeth Sommers is a 29 y.o. female with a complex medical history significant for polysubstance use disorder and history of alcoholic induced pancreatitis, who presents from outside hospital due to abdominal pain in the setting of of unknown location. Beta-hCG [facility] has been 155 > 159 24 hours apart. Transvaginal ultrasound performed today is concerning for suspected left ectopic . I reviewed these findings with the patient and discussed surgery is the most ideal management plan for her ectopic based off the amount ofpain she has and her past medical history. Patient is extremely frustrated with the whole scenario and upset with overall pain control. After a long discussion of how the surgery will hopefully improve her pain, patient is agreeable to surgery. We also discussed the possibility of not seeing anything on diagnostic laparoscopy and discussed the possibility of a D&S, but patient does not desireD&S because this is a desired . Patient was extensively counseled about the benefits, alternatives, and risks of diagnostic laparoscopy, possible salpingectomy, possible oophorectomy for ectopic including pain, infection,bleeding, hysterectomy, damage to surrounding structures (including bowel, bladder, ureters, nerves, and vessels), need for additional or future surgery or care, risk of anesthesia, blood clots (DVT,PE), stroke, and even . In the event that it is needed, patient verbalized that she is accepting of blood transfusion. All the patient's questions were answered, she verbalized good understanding and signed informed consent. Sign Khoa Parrish MD [facility] Available on [employer] 10/21/25 1:24 PM * Angelia Zavala MD - 10/20/2025 3:00 PM EST Progress Note Hospital Day: 2, Admit Date: 10/19/2025 Assessment and plan: Ms. Sommers is a 29 y.o. female with past medical history of alcohol use disorder who was transferredfrom outside hospital for management of possible ectopic . Assessment & Plan Alcohol withdrawal with complication with inpatient treatment (HCC) Bipolar disorder (HCC) PTSD (post-traumatic stress disorder) -Patient lethargic on exam but was able to protect her airway saturating well on room air - Of note she was receiving phenobarbital at outside hospital along with IV Valium and Benadryl - Of note overnight CREATIVE WRITING PROFESSOR was called due to lethargy after IV diazepam was administered and patient ended up receiving Narcan and woke up - Appreciate addiction medicine recommendation - Will start patient on oral as needed as needed diazepam alcohol withdrawal CIMT protocol - Will continue telemetry monitoring -will hold off gabapenti, oxcarbazepine for now given lethargic status in setting of DUAL phenobarbital and diazepam use Other ectopic without intrauterine Abdominal pain of multiple sites -Pending transvaginal ultrasound and abdominal ultrasound for cholecystitis evaluation - Patient was complaining of abdominal pain and was on IV Dilaudid until this afternoon and changedto subcu Dilaudid Patient was placed n.p.o. for abdominal ultrasound I have updated the Patient and addressed their concerns. Barriers to patient transition/ medical necessity requiring continued inpatient stay patient with Jose Armando in setting of alcohol withdrawal/benzos/phenobarb Quality metrics: # Telemetry: Active Telemetry Order Indication - Hemodynamic Instability Continue Telemetry?: Yes Hemodynamic Instability # Diet: Diet NPO; Meds, Sips of clears, Ice chips # Code status: Full Code # Roland catheter: No Active Urethral Catheter (Roland) Order # Central lines: # Expected Date of Discharge: 10/24/2025 {Click to update GRIS: [id number]} VTE Time Out IMPROVE SCORE: 0 (10/19/2025 9:09 PM) Interpretation - Low Risk Chemical Prophylaxis Low VTE risk Mechanical Prophylaxis SCDs are ordered - Bilateral (Knee High) Patient declined SCD use, Please review Subjective: Chief complaint No chief complaint on file. Patient is being seen for acute medical problems and follow-up for chronic medical issues as mentioned in the assessment and plan above. # Event overnight: No acute events reported Ms. Sommers was seen earlier today. she reported feeling ok Objective: Last 3 Filed Values 10/20/25 0400 10/20/25 0453 10/20/25 1400 BP: 105/64 120/68 Pulse: 78 70 Resp: 18 18 Temp: 97 ??F (36.1 ??C) 97 ??F (36.1 ??C) 97 ??F (36.1 ??C) TempSrc: Tympanic Tympanic SpO2: 98% 100% SpO2 Min: 98 % Max: 100 % O2 Device: room air (none) Weight: on admission: 62 kg (136 lb 11 oz), (10/19/2025 9:33 PM) Recent: 62 kg (136 lb 11 oz), (10/19/2025 9:33 PM) Last Documented Bowel Movement - Intake/Output Summary (Last 24 hours) at 10/20/2025 1500 Last data filed at 10/20/2025 1200 Gross per 24 hour Intake 50 ml Output -- Net 50 ml Physical Exam Constitutional - not in acute distress. Head - normocephalic. Scheduled medications 10/20/25 3:00 PM As needed medications: cloNIDine, 0.1 mg, Oral, TID folic acid, 1 mg, Oral, Daily gabapentin, 800 mg, Oral, TID insulin lispro, 1-5 Units, Subcutaneous, Q4H KATHY multivitamin with minerals, 1 tablet, Oral, Daily OXcarbazepine, 600 mg, Oral, BID risperiDONE, 1 mg, Oral, BID senna-docusate, 2 tablet, Oral, Nightly sucralfate, 1 g, Oral, Before meals & nightly thiamine, 200 mg, Oral, Daily [Provider Held] traZODone, 100 mg, Oral, Nightly acetaminophen bisacodyl glucose OR glucose OR dextrose OR dextrose OR glucagon diazepam OR diazepam haloperidol lactate HYDROmorphone lactulose naloxone ondansetron Current infusions: lactated ringers, 150 mL/hr, Last Rate: 150 mL/hr (10/19/25 1675) Diagnostic studies: I have reviewed the labs and ordered new labs if needed. Recent Labs 10/20/259910/20/25458 WBC 5.9 5.6 HGB 11.0* 11.4* HCT 32.4* 33.3* PLT 156 170 Recent Labs 11/20/25 0100 11/20/25 0459 NA 133* 136 K 3.2* 3.3* CO2 CL 99 102 BUN 7* 7* CREAT 0.38* 0.44 CALCIUM 8.6* 8.5* BILITOT 0.4 0.4 ALKPHOS 97 92 AST 50 39 ALT 23 20 ALBUMIN 3.6 3.3* No results for input(s): PT , PTT , INR in the last 72 hours. No results for input(s): SARSCOV2 , INFLAV , INFLBV in the last 72 hours. Blood Culture Results Since Admission No results found for this visit on 10/19/25. Urine Culture Results Since Admission No results found for this visit on 10/19/25. Angelia Zavala MD * Patrick Dye MD - 10/20/2025 7:11 AM EST EDUCATION FACULTY MEMBER AM Progress Note Assessment & Plan Assessment 29 y.o. with complex medical history including polysubstance use disorder with hx of ETOH induced pancreatitis who presented to OSH for ETOH withdrawal and abdominal pain, incidentally found to have of unknown location, with concern for ectopic (based on 2 cm adnexal structure on ultrasound). Patient was transferred to for further coordination of management. Vitally stable and benign abdominal exam this morning. Plan - Recommend formal TVUS for evaluation. EDUCATION FACULTY MEMBER will perform appropriate counseling for management, medication vs. surgical management based on ultrasound findings and overall clinical picture once patient is able to participate in conversation. - No imaging studies or medication should be withheld in the setting of of unknown location. She should undergo the standard of care work-up for abdominal pain. - Recommend addiction medicine and social work consult in setting of polysubstance use history - Rest of the care per primary team - Please TT Gynecology with any questions or concerns especially regarding medication or imagingsafety Patrick Dye MD [facility], PGY2 TT Gynecology for any questions or concerns 10/20/25 7:12 AM Subjective Patient soundly sleeping this morning with good respiratory effort. Per RN at bedside, patient has been sleepy most of the night. She woke up yesterday around 12 AM and was communicative with RN. Per RN no vaginal bleeding Objective Physical exam Last Vitals: Vitals: 10/20/25 0453 BP: 105/64 Pulse: 78 Resp: 18 Temp: 97 ??F (36.1 ??C) SpO2: 98% Weight: Intake/Output Summary (Last 24 hours) at 10/20/2025 0712 Last data filed at 10/20/2025 0123 Gross per 24 hour Intake 10 ml Output -- Net 10 ml Gen: NAD Pulm: No increased WOB Abd: Soft, non-tender to palpation, nondistened, no rebound or guarding Ext: No calf tenderness bilaterally, No edema Labs: Recent Results (from the past 24 hours) POCT Glucose, Fingerstick Collection Time: 10/19/25 9:25 PM Specimen: Blood Result Value Ref Range POC Glucose 155 (H) 65 - 99 mg/dL POCT Glucose, Fingerstick Collection Time: 10/20/25 12:44 AM Specimen: Blood Result Value Ref Range POC Glucose 166 (H) 65 - 99 mg/dL Complete Blood Count, with Differential Collection Time: 10/20/25 1:00 AM Specimen: Blood Result Value Ref Range White Blood Cell Count 5.9 4.0 - 11.0 Thou/uL Platelet Count 156 150 - 450 Thou/uL Hemoglobin 11.0 (L) 11.7 - 15.7 g/dL Hematocrit 32.4 (L) 35.0 - 47.0 % Red Blood Cell Count 3.67 (L) 4.00 - 5.40 Mil/uL MCV 88 80 - 100 fL MCH 30.0 26.0 - 34.0 pg MCHC 34.0 30.0 - 36.0 g/dL RDW 11.9 11.5 - 14.5 % MPV 9.5 7.5 - 12.5 fL Neutrophils Auto 54.6 % Immature Granulocytes 0.2 % Lymphocytes Auto 36.5 % Monocytes Auto 5.7 % Eosinophils Auto 2.5 % Basophils Auto 0.5 % Abs Neutrophils Auto 3.24 2.00 - 7.50 Thou/uL Abs Immature Granulocytes 0.01 0.00 - 0.10 Thou/uL Abs Lymphocytes Auto 2.17 1.50 - 4.50 Thou/uL Abs Monocytes Auto 0.34 0.20 - 1.50 Thou/uL Abs Eosinophils Auto 0.15 0.00 - 0.70 Thou/uL Abs Basophils Auto 0.03 0.00 - 0.20 Thou/uL Comprehensive Metabolic Panel Collection Time: 10/20/25 1:00 AM Specimen: Blood Result Value Ref Range Glucose 165 (H) 65 - 99 mg/dL Blood Urea Nitrogen (BUN) 7 (L) 8 - 21 mg/dL Creatinine 0.38 (L) 0.40 - 1.10 mg/dL eGFR >90 >59 Sodium 133 (L) 136 - 145 mmol/L Potassium 3.2 (L) 3.4 - 5.3 mmol/L Chloride 99 98 - 107 mmol/L CO2 25 22 - 33 mmol/L Calcium 8.6 (L) 8.7 - 10.5 mg/dL Alkaline Phosphatase 97 32 - 122 U/L Aspartate Aminotrans (AST) 50 10 - 50 U/L Alanine Aminotrans (ALT) 23 10 - 50 U/L Bilirubin, Total 0.4 0.2 - 1.0 mg/dL Protein, Total 6.4 6.3 - 8.3 g/dL Albumin 3.6 3.5 - 5.0 g/dL BUN/Creatinine Ratio 18 10.0 - 25.0 Ratio Globulin 2.8 1.5 - 3.9 g/dL Albumin/Globulin Ratio 1.3 1.0 - 3.0 Ratio Anion Gap 9 7 - 17 B-Hydroxybutyrate Collection Time: 10/20/25 1:00 AM Specimen: Blood Result Value Ref Range B-Hydroxybutyrate 0.06 <0.28 mmol/L LIPASE Collection Time: 10/20/25 1:00 AM Result Value Ref Range Lipase 8 (L) 13 - 60 U/L Beta-hCG, Qualitative, Reflex Quant Collection Time: 10/20/25 1:00 AM Result Value Ref Range Beta-hCG, Qualitative Positive (A) Negative BETA-HCG, QUANTITATIVE Collection Time: 10/20/25 1:00 AM Result Value Ref Range Beta-hCG, Quantitative 155 (H) <5 mIU/mL POCT Glucose, Fingerstick Collection Time: 10/20/25 2:02 AM Specimen: Blood Result Value Ref Range POC Glucose 180 (H) 65 - 99 mg/dL Complete Blood Count, with Differential Collection Time: 10/20/25 4:59 AM Specimen: Blood Result Value Ref Range White Blood Cell Count 5.6 4.0 - 11.0 Thou/uL Platelet Count 170 150 - 450 Thou/uL Hemoglobin 11.4 (L) 11.7 - 15.7 g/dL Hematocrit 33.3 (L) 35.0 - 47.0 % Red Blood Cell Count 3.83 (L) 4.00 - 5.40 Mil/uL MCV 87 80 - 100 fL MCH 29.8 26.0 - 34.0 pg MCHC 34.2 30.0 - 36.0 g/dL RDW 11.9 11.5 - 14.5 % MPV 9.4 7.5 - 12.5 fL Neutrophils Auto 41.7 % Immature Granulocytes 0.2 % Lymphocytes Auto 49.7 % Monocytes Auto 5.0 % Eosinophils Auto 3.0 % Basophils Auto 0.4 % Abs Neutrophils Auto 2.35 2.00 - 7.50 Thou/uL Abs Immature Granulocytes 0.01 0.00 - 0.10 Thou/uL Abs Lymphocytes Auto 2.80 1.50 - 4.50 Thou/uL Abs Monocytes Auto 0.28 0.20 - 1.50 Thou/uL Abs Eosinophils Auto 0.17 0.00 - 0.70 Thou/uL Abs Basophils Auto 0.02 0.00 - 0.20 Thou/uL Comprehensive Metabolic Panel Collection Time: 10/20/25 4:59 AM Specimen: Blood Result Value Ref Range Glucose 140 (H) 65 - 99 mg/dL Blood Urea Nitrogen (BUN) 7 (L) 8 - 21 mg/dL Creatinine 0.44 0.40 - 1.10 mg/dL eGFR >90 >59 Sodium 136 136 - 145 mmol/L Potassium 3.3 (L) 3.4 - 5.3 mmol/L Chloride 102 98 - 107 mmol/L CO2 25 22 - 33 mmol/L Calcium 8.5 (L) 8.7 - 10.5 mg/dL Alkaline Phosphatase 92 32 - 122 U/L Aspartate Aminotrans (AST) 39 10 - 50 U/L Alanine Aminotrans (ALT) 20 10 - 50 U/L Bilirubin, Total 0.4 0.2 - 1.0 mg/dL Protein, Total 5.8 (L) 6.3 - 8.3 g/dL Albumin 3.3 (L) 3.5 - 5.0 g/dL BUN/Creatinine Ratio 16 10.0 - 25.0 Ratio Globulin 2.5 1.5 - 3.9 g/dL Albumin/Globulin Ratio 1.3 1.0 - 3.0 Ratio Anion Gap 9 7 - 17 Ammonia Level Collection Time: 10/20/25 4:59 AM Specimen: Blood Result Value Ref Range Ammonia, Plasma 43 11 - 51 umol/L * Velma Chavez MD - 10/20/2025 1:18 AM EST EDUCATION FACULTY MEMBER Consult Note Date of Consult: 10/20/2025 Service Requesting Consult: Internal Medicine Reason for Consultation: of unknown location Assessment & Plan Assessment: 29 y.o. with history of alcohol-induced pancreatitis, polysubstance use disorder, bipolar disorder, PTSD who presented to outside hospital with severe abdominal pain, nausea and vomiting and transferred to for direct admission under Internal Medicine for further management. [employer] team consulted for concern of ectopic given positive test and reported left adnexal mass on ultrasound at outside hospital. Patient vitally stable with no signs of an acute abdomen on exam requiring emergent surgical intervention. Low concern for ovarian torsion. Recommendations: - Confirmation of with repeat beta hCG - Transvaginal ultrasound to assess question of adnexal mass - Full work-up of abdominal pain with imaging studies primary team feels appropriate Patient and plan discussed with Dr. Duarte, PGY-4 Velma Chavez MD PGY-2 [facility] OBGYN residency Pager #[phone] Also available on [place] Text Subjective Chief Concern I have abdominal pain History of Present Illness 29 y.o. with history of alcohol-induced pancreatitis, polysubstance use disorder, bipolar disorder, PTSD who presents with severe abdominal pain, nausea and vomiting admitted to Internal Medicine for further management. Per chart review, patient presented to an outside hospital yesterday (10/19) with the symptoms described above. A CT scan was ordered that was subsequently canceled due to a positive urine test. A Beta-hCG was noted to be 241 and a transvaginal ultrasound was formally read as left adnexalmass highly suspicious for ectopic approximately 2 cm. The provider at outside hospital contacted their on-call [employer] services who recommended methotrexate therapy which is not available at their hospital. They therefore initiated a transfer to for administration of methotrexate therapy if patient deemed a candidate. Today at bedside, patient reports having two days of intermittent RUQ/epigastric pain that she rates a 10 out of 10. Patient also endorses having intermittent nausea and vomiting. She endorses last drinking alcohol 3 days ago (1 pint of hard liquor). Patient is aware of positive test at outside hospital and states she is uncertain whether the would be desired. Patient denies having any fever, chills, pelvic pain, vaginal bleeding, vaginal discharge, leakage of fluid, vaginaldischarge, dysuria, hematuria. ROS Per HPI OB History Para Term AB Living 2 2 2 0 0 2 SAB IAB Ectopic Molar Multiple Live Births 0 0 0 0 0 2 # Outcome Date GA Lbr Jamari/2nd Weight Sex Type Anes PTL Lv 2 Term EMIGDIO 1 Term EMIGDIO Composition Floor Layer History OB provider: None Regular periods lasting 5-7 days, normal flow Contraception: None including no barrier protection Sexually active: Yes with one male partner Denies history of sexually trasmitted infections Has never had a pap smear Medical History No past medical history on file. Surgical History No past surgical history on file. Family History No family history on file. Social History Denies tobacco or drug use. Endorses alcohol use (last 3 days ago and drank 1 pint of hard liquor) Medications - Patient unable to list all medications, reports taking Gabapentin, Clonidine and Hydroxyzine. Allergies -No known drug allergies Objective Vitals: 10/19/25 2051 10/20/25 0100 BP: (!) 129/97 119/83 Pulse: 60 (!) 54 Resp: 16 18 Temp: 98 ??F (36.7 ??C) (!) 46.4 ??F (8 ??C) SpO2: 98% 100% GEN: No acute distress RESP: no increased work of breathing ABD: soft, mild generalized abdominal tenderness on palpation, not distended, no rebound tendernessor guarding SSE: Deferred BIMANUAL: Patient declined exam Labs: Recent Results (from the past 12 hours) POCT Glucose, Fingerstick Collection Time: 10/19/25 9:25 PM Specimen: Blood Result Value Ref Range POC Glucose 155 (H) 65 - 99 mg/dL POCT Glucose, Fingerstick Collection Time: 10/20/25 12:44 AM Specimen: Blood Result Value Ref Range POC Glucose 166 (H) 65 - 99 mg/dL Complete Blood Count, with Differential Collection Time: 10/20/25 1:00 AM Specimen: Blood Result Value Ref Range White Blood Cell Count 5.9 4.0 - 11.0 Thou/uL Platelet Count 156 150 - 450 Thou/uL Hemoglobin 11.0 (L) 11.7 - 15.7 g/dL Hematocrit 32.4 (L) 35.0 - 47.0 % Red Blood Cell Count 3.67 (L) 4.00 - 5.40 Mil/uL MCV 88 80 - 100 fL MCH 30.0 26.0 - 34.0 pg MCHC 34.0 30.0 - 36.0 g/dL RDW 11.9 11.5 - 14.5 % MPV 9.5 7.5 - 12.5 fL Neutrophils Auto 54.6 % Immature Granulocytes 0.2 % Lymphocytes Auto 36.5 % Monocytes Auto 5.7 % Eosinophils Auto 2.5 % Basophils Auto 0.5 % Abs Neutrophils Auto 3.24 2.00 - 7.50 Thou/uL Abs Immature Granulocytes 0.01 0.00 - 0.10 Thou/uL Abs Lymphocytes Auto 2.17 1.50 - 4.50 Thou/uL Abs Monocytes Auto 0.34 0.20 - 1.50 Thou/uL Abs Eosinophils Auto 0.15 0.00 - 0.70 Thou/uL Abs Basophils Auto 0.03 0.00 - 0.20 Thou/uL POCT Glucose, Fingerstick Collection Time: 10/20/25 2:02 AM Specimen: Blood Result Value Ref Range POC Glucose 180 (H) 65 - 99 mg/dL Imaging Studies: - None to review documented in this encounter H&P Notes * Juan Mayorga MD - 10/19/2025 9:14 PM EST Images from the original note were not included. HOSPITAL MEDICINE ADMISSION HISTORY & PHYSICAL Admit Date: 10/19/2025 8:01 PM Patient's Primary Care Physician: No primary care provider on file. ASSESSMENT & PLAN Assessment & Plan Alcohol withdrawal with complication with inpatient treatment (HCC) Other ectopic without intrauterine Abdominal pain of multiple sites Bipolar disorder (HCC) PTSD (post-traumatic stress disorder) 29yo F w/ hx of Bipolar Disorder, PTSD, DMII, Polysubstance Abuse Disorder Including ETOH w/ hx of ETOH Induced Pancreatitis and hx of Withdrawal who presented to OSH for ETOH Withdrawal Sx found to have L. Ectopic #ETOH Withdrawal #Abdominal Pain, Likely Multifactorial in the Setting of Ectopic , ETOH Gastritis #L. Ectopic #Concerns for Cholecystitis(?) #Bipolar Disorder #PTSD -Patient received 260mg dose of Phenobarbital at ~3p. Unclear if she received either of the next 2 doses in awaiting transit to . She additionally appears to have received Valium at the OSH in addition to the phenobarb therapy as well, which further clouds her picture. She seems certainly to be in pain on exam, however, does not seem to be in florid withdrawal, and is quite lethargic on exam. Given she is on several medications for her psychiatric hx that are sedating, and seeming as she may require increasing amounts of opioids, it seems most prudent (and safest) at this juncture to start the IV Valium taper w/ PRN rescue doses for breakthrough sx to prevent oversedation -Continue CIWA Protocol w/ plan per above -PRN Tylenol, IV Dilaudid for abdominal pain. Her pain seems generalized w/ a focused component in the left suprapubic/LQ region. It seems more likely her pain is multifactorial in the setting of gastritis and ectopic than GB and/or pancreas etiology (Lipase WNL at OSH) -Will repeat RUQ U/S here. Patient reportedly had a abdominal ultrasound concerning for cholecystitis in the middle of August at OSH for which she left AMA prior to being evaluated by surgery team. She does not have pain in the right upper quadrant, no fever, no leukocytosis. Her CMP from outside hospitals largely unremarkable, however, is not entirely surprising as cholecystitis can often present in the absence of alk phos or T. bili elevations. This being said, low suspicion for cholecystitis at this time; will monitor off antibiotics at this juncture - TVUS and beta-hCG ordered at the request of gynecology team who will make further recommendationsin the morning. The question will be whether she is a candidate for methotrexate vs. OR management of her ectopic as she passes through the withdrawal window -Patient on Glipizide and Metformin at home. Will get STAT CMP and BHB as BSG was reportedly in [id number] w/ a HAGMA at OSH. Need to rule out DKA. In the interim, will placed on q4h BSG checks and lowdose SSI while NPO. Transition to ACHS when diet advanced -NPO w/ IVF at present. Advance diet as tolerated -Continue Gabapentin 800mg TID -Continue Clonidine 0.1mg TID -Continue Trileptal 600mg BID -Continue Risperidone 1mg BID -Continue Trazodone 100mg nightly -Social Work Consult Placed -Folic Acid, Thiamine, MV -Tele QUALITY [employer] # Telemetry: Active Telemetry Order Indication - Hemodynamic Instability Continue Telemetry?: Yes Hemodynamic Instability # Diet: Diet NPO; Meds, Sips of clears, Ice chips # Code status: Full Code # HCP/Decision maker: Patient Discussed patient's condition,further plan and management with patient and agreed with it. # Roland catheter: No Active Urethral Catheter (Roland) Order # Central lines: None # Expected Date of Discharge: 10/24/2025 VTE Time Out IMPROVE SCORE: 0 (10/19/2025 9:09 PM) Interpretation - Low Risk Chemical Prophylaxis Low VTE risk Mechanical Prophylaxis SCDs are ordered - Bilateral (Knee High) SUBJECTIVE Chief Complaint: ETOH Withdrawal Subjective Patient initially presented to outside hospital for concerns for alcohol withdrawal with possible seizure activity as well as abdominal pain. CBC was generally in revealing. CMP was notable for elevated blood glucose greater than 300, bicarb of 40, anion gap of 22. Lipase was within normal limits. ETOH was 333. A right upper quadrant ultrasound was completed which showed concerns for cholecystitis, with plans for a CT abdomen pelvis for further evaluation, however, beta-hCG subsequently returned positive. Transvaginal ultrasound was completed which subsequently demonstrated a 2.8 x 1.6 x 1.7 cm mass adjacent to the left ovary suspicious for ectopic . Given possible need for methotrexate vs. OR management, she was transferred here for further evaluation. On arrival here, she is afebrile, heart rates in 60s, RR 16, BP 129/97, saturating appropriate on room air. Labs are pending on will be reviewed. As a relates to her alcohol use, patient states she is struggled with this for quite some time. Shetypically indulges in hard liquor. She is unclear how many drinks she has been having over the lastseveral days-weeks; she states she does not even remember after certain point as she typically will blackout. She endorses at the least having more than 6 shots nightly over this time with her lastdrink being late last evening/early this morning. She endorses nausea and mild headache at present Of note, patient did have a abdominal ultrasound completed in the middle of August of this year at[facility] when patient presented for a similar presentation in the ultrasound was also concerning for cholecystitis then, however, she left AMA prior to surgical evaluation. REVIEW OF SYSTEMS Review of Systems All other systems reviewed and are negative. PAST HISTORY No past medical history on file. No past surgical history on file. No family history on file. Social History[1] ALLERGIES Allergies[2] HOME MEDICATIONS Prior to Admission medications Not on File OBJECTIVE Patient Vitals for the past 8 hrs: BP Temp Temp src Pulse Resp SpO2 10/19/252050 (!) 129/97 98 ??F (36.7 ??C) Tympanic 60 16 98 % No intake or output data in the 24 hours ending 10/19/252113 Physical Exam GEN: Lethargic but arousable and AAOx3 CV: RRR S1 and S2+ no mrg LUNGS: CTA B/L no rrw ABD: Soft TTP generally in all 4Q, L. Suprapubic region/LLQ> R/LUQ, RLQ. No rebound or guarding to palpation in the RUQ. Pain in RUQ seems proportional w/ the rest of her abdominal pain. Most of her pain seems to be reference from the LLQ Relevant data reviewed Pending to Review Sign Juan Mayorga MD 10/19/2025 9:14 PM [1] [2] No Known Allergies documented in this encounter Procedure Notes * Juan Dillon MD - 10/21/2025 7:59 AM ESTAssociated Order(s): EEG ROUTINE INPATIENT ADULT ELECTROENCEPHALOGRAM (EEG) REPORT Facility: [facility] Patient and : Ibeth Sommers 1995 Date of Procedure: 10/20/25 Admission Attending: Juan Mayorga MD CLINICAL INFORMATION: EEG is requested in a 29 y.o. female to evaluate concern for seizures. SEIZURE MEDICATIONS: None listed RECORDING CONDITIONS: This is a natural sleep routine EEG performed at the inpatient bedside. The standard International 10-20 System of electrode placement was utilized, with a minimum of 20 electrodes and additional channels monitored for eye movement. One channel electrocardiogram was monitored.Data were obtained, stored, and interpreted according to ACNS guidelines (J Clin Neurophysiol 2006;23(2):85-183) utilizing referential montage recording, with reformatting to longitudinal, transversebipolar, and referential montages as necessary for interpretation. The patient tolerated entire procedure without difficulty. Photic stimulation and hyperventilation were utilized as activation procedures unless otherwise specified below. FOR EEG LAB USE: Abnormal Non-epileptiform :qz!02; No events :qz!08; Complexity ratin :qz!15 [id number] Brief ictal rhythmic discharges (BIRDs) NO 0 Lateralized periodic discharges (LPDs) OR lateralized rhythmic delta activity (LRDA) OR bilateral independent periodic discharges NO 0 Prior seizure NO 0 Sporadic epileptiform discharges NO 0 Frequency greater than 2 Hz for any periodic or rhythmic pattern NO 0 Presence of PLUS features (superimposed, rhythmic, sharp, or faster activity) NO 0 [id number] TOTAL SCORE: 0 (5% SZ [!2H31P$2B&0]) E.E.G. DESCRIPTION: During periods of quiet wakefulness EEG background was disorganized and characterized by an admixture of alpha and theta range frequencies. Also prominent fast and sharp beta activity was seen throughout the recording. EEG background was continuous and symmetric bilaterally. No focal lateralized or frankly epileptiform features were seen. No electrographic seizures were recorded. Prominent bilateral muscle movement artifact was seen throughout the recording. Intermittent bilateral eye blink artifacts were recorded. Hyperventilation was not performed. Photic stimulation was not performed. Patient was described as lethargic. Patient was able to answer questions and to follow commands. E.E.G. INTERPRETATION: This is abnormal inpatient bedside routine EEG due to disorganized background and generalized slowing suggestive of mild to moderate diffuse encephalopathy. There was also excess of bilateral fast beta frequencies suggestive of drug effect. The electrographic pattern of encephalopathy is nonspecific for its etiology. No seizure discharges were recorded. Please note that this recording was somewhat technically limited due to at times prominent bilateral muscle and movement artifact that may have obscured underlying interictal abnormalities. Follow-up EEG suggested if clinically indicated. CLINICAL CORRELATION: No indicators of epilepsy or seizures were noted, however the absence of epileptiform abnormalities does not preclude a clinical diagnosis of seizures. Juan Dillon MD. [facility] documented in this encounter Consult Notes * Donna Graff LCSW - 10/20/2025 3:10 PM ESTAssociated Order(s): IP CONSULT TO SOCIAL WORK; IP CONSULT TO SOCIAL WORK; IP CONSULT TO SOCIAL WORK Images from the original note were not included. Health Social Work Brief Note Date: 10/20/2025 Contact Reason: Substance Use Previous Social Work Encounters: None Ibeth Sommers is a 29 y.o. female currently admitted for: Alcohol withdrawal with complication with inpatient treatment (HCC) Assessment/Summary SW reviewed chart. SW consulted 3x for substance use assessment. SW attempted to meet with pt earlier in the day but she was asleep and was not easily arousable to name. SW also attempted to meet with pt later in the day but she was still extremely lethargic. SW asked what brought pt into the hospital and she stated I had pain everywhere. SW asked where pt lives, and pt responded that she resides in [place] with her friend and cousin, although unreliable as she was falling asleep while answering. SW offeredto meet with pt tomorrow instead, which pt was agreeable to. Recommendations/Plan SW will continue to remain available as needed along continuum of care Sign: Donna Graff LCSW * Velma Chavez MD - 10/20/2025 1:18 AM EST EDUCATION FACULTY MEMBER Consult Note Date of Consult: 10/20/2025 Service Requesting Consult: Internal Medicine Reason for Consultation: of unknown location Assessment & Plan Assessment: 29 y.o. with history of alcohol-induced pancreatitis, polysubstance use disorder, bipolar disorder, PTSD who presented to outside hospital with severe abdominal pain, nausea and vomiting and transferred to for direct admission under Internal Medicine for further management. [employer] team consulted for concern of ectopic given positive test and reported left adnexal mass on ultrasound at outside hospital. Patient vitally stable with no signs of an acute abdomen on exam requiring emergent surgical intervention. Low concern for ovarian torsion. Recommendations: - Confirmation of with repeat beta hCG - Transvaginal ultrasound to assess question of adnexal mass - Full work-up of abdominal pain with imaging studies primary team feels appropriate Patient and plan discussed with Dr. Duarte, PGY-4 Velma Chavez MD PGY-2 [facility] OBGYN residency Pager #[phone] Also available on [place] Text Subjective Chief Concern I have abdominal pain History of Present Illness 29 y.o. with history of alcohol-induced pancreatitis, polysubstance use disorder, bipolar disorder, PTSD who presents with severe abdominal pain, nausea and vomiting admitted to Internal Medicine for further management. Per chart review, patient presented to an outside hospital yesterday (10/19) with the symptoms described above. A CT scan was ordered that was subsequently canceled due to a positive urine test. A Beta-hCG was noted to be 241 and a transvaginal ultrasound was formally read as left adnexalmass highly suspicious for ectopic approximately 2 cm. The provider at outside hospital contacted their on-call [employer] services who recommended methotrexate therapy which is not available at their hospital. They therefore initiated a transfer to for administration of methotrexate therapy if patient deemed a candidate. Today at bedside, patient reports having two days of intermittent RUQ/epigastric pain that she rates a 10 out of 10. Patient also endorses having intermittent nausea and vomiting. She endorses last drinking alcohol 3 days ago (1 pint of hard liquor). Patient is aware of positive test at outside hospital and states she is uncertain whether the would be desired. Patient denies having any fever, chills, pelvic pain, vaginal bleeding, vaginal discharge, leakage of fluid, vaginaldischarge, dysuria, hematuria. ROS Per HPI OB History Para Term AB Living 2 2 2 0 0 2 SAB IAB Ectopic Molar Multiple Live Births 0 0 0 0 0 2 # Outcome Date GA Lbr Jamari/2nd Weight Sex Type Anes PTL Lv 2 Term EMIGDIO 1 Term EMIGDIO Composition Floor Layer History OB provider: None Regular periods lasting 5-7 days, normal flow Contraception: None including no barrier protection Sexually active: Yes with one male partner Denies history of sexually trasmitted infections Has never had a pap smear Medical History No past medical history on file. Surgical History No past surgical history on file. Family History No family history on file. Social History Denies tobacco or drug use. Endorses alcohol use (last 3 days ago and drank 1 pint of hard liquor) Medications - Patient unable to list all medications, reports taking Gabapentin, Clonidine and Hydroxyzine. Allergies -No known drug allergies Objective Vitals: 10/19/251 10/20/25 0100 BP: (!) 129/97 119/83 Pulse: 60 (!) 54 Resp: 16 18 Temp: 98 ??F (36.7 ??C) (!) 46.4 ??F (8 ??C) SpO2: 98% 100% GEN: No acute distress RESP: no increased work of breathing ABD: soft, mild generalized abdominal tenderness on palpation, not distended, no rebound tendernessor guarding SSE: Deferred BIMANUAL: Patient declined exam Labs: Recent Results (from the past 12 hours) POCT Glucose, Fingerstick Collection Time: 10/19/25 9:25 PM Specimen: Blood Result Value Ref Range POC Glucose 155 (H) 65 - 99 mg/dL POCT Glucose, Fingerstick Collection Time: 10/20/25 12:44 AM Specimen: Blood Result Value Ref Range POC Glucose 166 (H) 65 - 99 mg/dL Complete Blood Count, with Differential Collection Time: 10/20/25 1:00 AM Specimen: Blood Result Value Ref Range White Blood Cell Count 5.9 4.0 - 11.0 Thou/uL Platelet Count 156 150 - 450 Thou/uL Hemoglobin 11.0 (L) 11.7 - 15.7 g/dL Hematocrit 32.4 (L) 35.0 - 47.0 % Red Blood Cell Count 3.67 (L) 4.00 - 5.40 Mil/uL MCV 88 80 - 100 fL MCH 30.0 26.0 - 34.0 pg MCHC 34.0 30.0 - 36.0 g/dL RDW 11.9 11.5 - 14.5 % MPV 9.5 7.5 - 12.5 fL Neutrophils Auto 54.6 % Immature Granulocytes 0.2 % Lymphocytes Auto 36.5 % Monocytes Auto 5.7 % Eosinophils Auto 2.5 % Basophils Auto 0.5 % Abs Neutrophils Auto 3.24 2.00 - 7.50 Thou/uL Abs Immature Granulocytes 0.01 0.00 - 0.10 Thou/uL Abs Lymphocytes Auto 2.17 1.50 - 4.50 Thou/uL Abs Monocytes Auto 0.34 0.20 - 1.50 Thou/uL Abs Eosinophils Auto 0.15 0.00 - 0.70 Thou/uL Abs Basophils Auto 0.03 0.00 - 0.20 Thou/uL Comprehensive Metabolic Panel Collection Time: 10/20/25 1:00 AM Specimen: Blood Result Value Ref Range Glucose 165 (H) 65 - 99 mg/dL Blood Urea Nitrogen (BUN) 7 (L) 8 - 21 mg/dL Creatinine 0.38 (L) 0.40 - 1.10 mg/dL eGFR >90 >59 Sodium 133 (L) 136 - 145 mmol/L Potassium 3.2 (L) 3.4 - 5.3 mmol/L Chloride 99 98 - 107 mmol/L CO2 25 22 - 33 mmol/L Calcium 8.6 (L) 8.7 - 10.5 mg/dL Alkaline Phosphatase 97 32 - 122 U/L Aspartate Aminotrans (AST) 50 10 - 50 U/L Alanine Aminotrans (ALT) 23 10 - 50 U/L Bilirubin, Total 0.4 0.2 - 1.0 mg/dL Protein, Total 6.4 6.3 - 8.3 g/dL Albumin 3.6 3.5 - 5.0 g/dL BUN/Creatinine Ratio 18 10.0 - 25.0 Ratio Globulin 2.8 1.5 - 3.9 g/dL Albumin/Globulin Ratio 1.3 1.0 - 3.0 Ratio Anion Gap 9 7 - 17 B-Hydroxybutyrate Collection Time: 10/20/25 1:00 AM Specimen: Blood Result Value Ref Range B-Hydroxybutyrate 0.06 <0.28 mmol/L LIPASE Collection Time: 10/20/25 1:00 AM Result Value Ref Range Lipase 8 (L) 13 - 60 U/L Beta-hCG, Qualitative, Reflex Quant Collection Time: 10/20/25 1:00 AM Result Value Ref Range Beta-hCG, Qualitative Positive (A) Negative POCT Glucose, Fingerstick Collection Time: 10/20/25 2:02 AM Specimen: Blood Result Value Ref Range POC Glucose 180 (H) 65 - 99 mg/dL Imaging Studies: - None to review Cosigned by Shital Roland MD at 10/20/2025 3:08 AM EST Associated attestation - Shital Roland MD - 10/20/2025 3:08 AM EST Teaching Physician Attestation Level of Participation I have personally interviewed and examined the patient and reviewed Dr. Duarte's note. I agree with the history, exam, assessment and plan as detailed in the resident/fellow's note with the following ad ditions/exceptions/observations:abdominal exam benign, pelvic exam declined. In addition to furtherworkup of of unknown location, will follow ellucidation of epigastric pain as this will be relevant to determine her risk of potential surgical management if she had an recurrent pancreatitis. documented in this encounter Miscellaneous Notes * Plan of Care - Cora Melvin MD - 10/22/2025 2:14 PM EST Patient was discharged in afternoon by primary team. Patient number was unavailable in the chart. Reached out to mother but was unable to get patient number despite multiple attempts to discuss aboutthe USG findings. * Plan of Care - Roxy Aguirre RN - 10/22/2025 1:29 PM EST Plan of Care Reviewed With: patient Progress: improving Outcome Evaluation: Patient discharged from [place] [id number] in stable condition. AVS signed, discharge insructions given. Roxy Aguirre 10/22/2025 1:29 PM * Plan of Care - Kayla Reinoso RN - 10/22/2025 1:22 AM EST Problem: Adult Inpatient Plan of Care Goal: Plan of Care Review 10/22/2025 012 by Kayla Reinoso RN Outcome: Progressing Flowsheets Taken 10/22/2025 012 Plan of Care Reviewed With: patient Progress: no change Taken 10/22/2025 0021 Outcome Evaluation: pt a/o x4. sb in hallway, asking for pain meds constantly. pt medicated appropriatly per jan. 09/09 abd pain. has some vaginal bleeding. safety maintained. Refused po nightly meds * Plan of Care - Kayla Reinoso RN - 10/22/2025 12:38 AM EST Problem: Adult Inpatient Plan of Care Goal: Plan of Care Review Outcome: Progressing Flowsheets (Taken 10/22/2025 002) Plan of Care Reviewed With: patient Progress: no change Outcome Evaluation: pt a/o x4. sb in hallway, asking for pain meds constantly. pt medicated appropriatly per jan. 09/09 abd pain. has some vaginal bleeding. safety maintained * Plan of Care - Shaina Barlow RN - 10/21/2025 6:32 PM EST Plan of Care Reviewed With: patient Progress: no change Outcome Evaluation: pt back on floor. lethargic and asking for pain meds, pain med not due at this time. pt medicated appropriately per JAN. Needs met, safety maintained. Pt very anxious/agitated and attempting to roam the halls again. Pt guided back to room. Shaina Barlow 10/21/2025 6:32 PM * Hospital Course - Varsha Smith MD - 10/21/2025 6:15 PM EST Patient was a transfer of care in setting of alcohol withdrawal, abdominal pain and concern for ectopic in setting of positive test and left adnexal mass on ultrasound. On hospital day 1, Patient was admitted to medicine for management of alcohol withdrawal. PERSONNEL CLERKS SUPERVISOR was consultedfor concern for ectopic . On hospital day 2, Beta-hCG was noted to have increased to 159 from 155, and a repeat ultrasound showed the persistent left adnexal mass measuring 2.1 cm concerningfor ectopic . Patient continued to have abdominal pain with new vaginal bleeding, which was highly suspicion for ectopic . Given the clinical scenario and using shared decision making, patient was taken to the OR on 10/21/25 for a diagnostic laparoscopy and left salpingectomy in the setting of ectopic . Patient was transferred to the EDUCATION FACULTY MEMBER service after stabilization of alcohol withdrawal. Medicine had no further concern for alcohol withdrawal. Patient was doing well inthe post- operative period and met milestones on POD #1, was discharged home. Patient will follow [facility]. Message was sent for coordination of appointment. Patient incidentally noted to have elevated fingersticks requiring sliding scale insulin, A1c found to be 9.5. Patient to follow up outpatient for management of new diagnosis of diabetes. * Assessment & Plan Note - Angelia Zavala MD - 10/21/2025 6:09 PM ESTAssociated Problem(s): Alcohol withdrawal with complication with inpatient treatment (HCC) (Resolved 10/21/2025) -Patient is not under influence of any alcohol and therefore CIWA discontinued, diazepam discontinued - I also discontinued her home meds including Trileptal, trazodone and gabapentin yesterday given her drowsy status since she received phenobarb and Valium at outside hospital for possible withdrawal - I will resume this medication tomorrow as patient underwent laparoscopic intervention today for her ectopic * Assessment & Plan Note - Angelia Zavala MD - 10/21/2025 6:09 PM ESTAssociated Problem(s): Bipolar disorder (HCC) -Patient is not under influence of any alcohol and therefore CIWA discontinued, diazepam discontinued - I also discontinued her home meds including Trileptal, trazodone and gabapentin yesterday given her drowsy status since she received phenobarb and Valium at outside hospital for possible withdrawal - I will resume this medication tomorrow as patient underwent laparoscopic intervention today for her ectopic * Assessment & Plan Note - Angelia Zavala MD - 10/21/2025 6:09 PM ESTAssociated Problem(s): PTSD (post-traumatic stress disorder) -Patient is not under influence of any alcohol and therefore CIWA discontinued, diazepam discontinued - I also discontinued her home meds including Trileptal, trazodone and gabapentin yesterday given her drowsy status since she received phenobarb and Valium at outside hospital for possible withdrawal - I will resume this medication tomorrow as patient underwent laparoscopic intervention today for her ectopic * Assessment & Plan Note - Angelia Zavala MD - 10/21/2025 6:09 PM ESTAssociated Problem(s): Other ectopic without intrauterine -Status post diagnostic laparoscopy - Status post left salpingectomy for her ectopic * Assessment & Plan Note - Angelia Zavala MD - 10/21/2025 6:09 PM ESTAssociated Problem(s): Abdominal pain of multiple sites -Status post diagnostic laparoscopy - Status post left salpingectomy for her ectopic * Assessment & Plan Note - Angelia Zavala MD - 10/21/2025 6:09 PM ESTAssociated Problem(s): Liver mass -Patient noted to have 4.5 cm echogenic mass in the right hepatic lobe - Will get MRI abdomen liver protocol for definitive characterization will consult GI for above * Op Note - Khoa Parrish MD - 10/21/2025 2:56 PM EST Images from the original note were not included. [address] [id number] EDUCATION FACULTY MEMBER OPERATIVE REPORT Patient Name: Ibeth Sommers Date of : 1995 Date of Procedure: 10/21/2025 Pre-op Dx: Other ectopic without intrauterine [O00.80] Post-op Dx: Post-Op Diagnosis Codes: * Other ectopic without intrauterine [O00.80] Procedure: Procedure(s): LAPAROSCOPY DIAGNOSTIC, LEFT SALPINGECTOMY Surgeons and Role: * Khoa Parrish MD - Primary * Arslan Alvarenga MD - Resident - Assisting Anesthesia: general Drains: None Urine output: 500mL Fluids: 1400 mL IV crystalloid Findings: Normal appearing vulva with minimal vaginal bleeding. Laparoscopy: Normal appearing liver, stomach, gallbladder, bilateral hemidiaphragm, and bowel within the surgical field. Normal appearing uterus in size and contour. No evidence of endometriosis. Approximately 50mL of hemoperitoneum atthe start of the case. Normal appearing right fallopian tube. Normal appearing ovaries bilaterally.Left fallopian tube with an ectopic in the ampulla portion of the fallopian tube EBL: 5mL Path: ID Type Source Tests Collected by Time Destination A : [id number] Tissue Fallopian Tube, left PATHOLOGY REPORT Khoa Parrish MD 10/21/2025 3:18 PM Antibiotics: None Complications: None Indication: Ectopic Procedure: After informed consent was obtained, the patient was brought to the operating room, placed in the supine position and general anesthesia was administered and found to be adequate. The patient was then placed in the dorsal lithotomy position with yellow-fin stirrups, prepped and draped in the usual sterile fashion and a time out was performed. A Roland catheter was placed into the bladder and a sterile sponge stick was placed in the vagina for uterine elevation during the procedure. Attention was then turned to the abdomen. The umbilicus was grasped with two Allis clamps, elevatedand the umbilicus was infiltrated with 3 mL of 0.5% Marcaine. A 5mm stab incision was then made at the umbilicus. Towel clamps were placed, the Allis clamps were removed and the umbilicus was furtherelevated. A Veress needle was the inserted into the abdomen and a low CO2 pressure was noted. The abdomen was then insufflated. After removal of the Veress needle, a 5mm trocar was placed. Pneumoperitoneum was then created with CO2 gas. The camera was then introduced through the trocar and the abdomen was then surveyed and noted to have the findings listed above. The abdominal contents just below the entry site was inspected and no injuries were noted. Two other ports were then placed under direct visualization. Approximately 3mL of 0.5% Marcaine was injected in the left lower quadrant, an incision was made with the scalpel and a 5mm port was then placed under direct visualization. The sameprocedure was performed in the right lower quadrant. Attention was then turned to the pelvis, where the bilateral adnexa were inspected and an ectopic was visualized within the left fallopian tube. The left loping tube was then elevated, and a LigaSure device was used to dissect the fallopian tube away from the mesosalpinx starting at the fimbriated edge down to the cornual portion of the tube. The tube was transected off the uterus at the cornual portion. Good hemostasis was noted. Fallopian tube was placed into a 5 mm Endo Catch bag, and removed to the port site without difficulty. The pelvis was suction irrigated and good hemostasis was again noted. The instruments were then removed. The ports were removed under direct visualization. The skin incisions were then closed with 4-0 monocryl. The Roland catheter was removed, and the sponge on a stick was removed from the vagina without difficulty. Good hemostasis was noted at laparoscopic port sites. The sponge, lap, and needle counts were correct x 2. The patient was taken to the recovery room instable condition. Sign Khoa Parrish MD [facility] Available on [employer] 10/21/25 3:35 PM * Plan of Care - Shaina Barlow RN - 10/21/2025 2:44 PM EST Progress: no change Outcome Evaluation: Pt alert and oriented x4. Agitated and tearful stating she wants to go home. Ptpushed IV pole and took off ID band and stated i am going to escape i want my pain meds and they keep telling me im not due pt kept roaming the halls crying and looking for provider. Provider notified. PRN haldol and 1 time dose of dilaudid 1mg ordered and given. STAT surg kathy. Pt able to calmdown and cooperate. pt will be transitioned to next level of care. Safety maintained. Needs Met. Shaina Barlow 10/21/2025 2:44 PM * Plan of Care - Nancy Amyaa RN - 10/21/2025 2:36 PM EST Initial Case Management Care Plan Note Assessment completed with patient, medical record review and discussion with clinical team. CC met with the patient using social distancing. Provided a Case Coordination packet with contact information, CC pamphlet and Your Next Step: Care Outside the Hospital brochure to the patient. Summary:Per the H&P: Ibeth is a 29yo F w/ hx of Bipolar Disorder, PTSD, DMII, Polysubstance Abuse Disorder Including ETOH w/ hx of ETOH Induced Pancreatitis and hx of Withdrawal who presented toOSH for ETOH Withdrawal Sx found to have L. Ectopic Met with patient at bedside, introduced self and role, confirmed and updated demographics, patient does not have a PCP, declined to establish one at this time. Patient reports she lives with her dad in a house, on the second floor. At baseline reports she is independent with ADLs/IADLs, drives and does not use any DME. Reports she has [employer] for insurance but does not have insurance cards onher at this time. Anticipated transition plan: home routine Caregiver/responsible person supports: self, dad PCP: Confirmed - Patient does not have a PCP, declined assistance at this time Anticipated transportation: [email or web address] Referrals made: None Barriers to discharge: Neuro, EDUCATION FACULTY MEMBER, addiction med Expected Date of Discharge 10/24/2025 Nancy Amaya 10/21/2025 2:36 PM * Addiction Medicine Consult - Asya Rojas MD - 10/21/2025 10:49 AM EST This note is protected by federal confidentiality rules (42 CFR part 2). The federal rules prohibityou from making any further disclosure of this note unless further disclosure is expressly permitted by the written consent of the individual whose information is being disclosed in this record or, is otherwise permitted by 42 CFR part 2. A general authorization for the release of medical or other information is NOT sufficient for this purpose (see ???2.31). ADDICTION MEDICINE PROGRESS NOTE Assessment & Plan Principal Problem: Alcohol withdrawal with complication with inpatient treatment (HCC) (POA: Yes) Active Problems: Abdominal pain of multiple sites (POA: Unknown) Other ectopic without intrauterine (POA: Unknown) Bipolar disorder (HCC) (POA: Unknown) PTSD (post-traumatic stress disorder) (POA: Unknown) Resolved Problems: Brief Summary Ibeth is a 29yo woman with PMHx of bipolar disorder, PTSD, DMII, alcohol use disorder and withdrawal and alcohol induced pancreatitis who presented to outside hospital with reported withdrawal seizures, found to have a positive bhcg suggestive of ectopic . Transferred to for further medical care. Addiction Medicine consulted for alcohol withdrawal. Ibeth presents after a 1-day return to use after a 3-year period of sobriety. She used to drink large quantities of rum before she was started on acamprosate and engaging with AA. These interventions were very effective for her up until 3 weeks ago, when she stopped taking acamprosate. She's awake and alert today after doses of phenobarbital and valium doses. Given history of sobriety and isolated return to drink of 1 night, she's not at risk for withdrawal and doesn't need any more mimi-ergic meds. We talked about restarting acamprosate and reengaging with AA to support sustained abstinence. Diagnosis: Alcohol use disorder with return to use History of complicated withdrawal Recommendations: - Discontinue CIWA monitoring - Discontinue benzodiazepine orders - Restart acamprosate 333mg TID on discharge. She has meds at home - No contraindication to discharge from Addiction Medicine perspective Subjective Chief complaint No chief complaint on file. Patient is being seen for acute medical problems and follow-up for chronic medical issues as mentioned in the assessment and plan above. Overnight Events/Patient Discussion: No acute events overnight. She became more awake last night and wanted to leave, but was persuaded to stay. This morning she's awake, alert and oriented. Reports mild anxiety and restlessness. Concerned about the possible ectopic . Ibeth reports severe alcohol use disorder up until 3 years ago when she started acamprosate and AAmeetings. She's maintained her sobriety for 3 years until 3 days ago when she went out with a friend for drinks. She came back home intoxicated and her partner took her to the ED to detox. Objective Vitals: 10/19/25 2051 10/20/25 0100 10/20/25 0400 10/20/25 0453 BP: (!) 129/97 119/83 105/64 Pulse: 60 (!) 54 78 Resp: 16 18 18 Temp: 98 ??F (36.7 ??C) (!) 46.4 ??F (8 ??C) 97 ??F (36.1 ??C) 97 ??F (36.1 ??C) SpO2: 98% 100% 98% 10/20/25 1400 10/20/25 2059 10/21/25 0050 10/21/25 0437 BP: 120/68 (!) 139/92 97/72 114/81 Pulse: 70 89 65 88 Resp: Temp: 97 ??F (36.1 ??C) (!) 96.2 ??F (35.7 ??C) (!) 96 ??F (35.6 ??C) SpO2: 100% 100% 99% 100% Well-appearing, in no acute distress. Awake, alert, conversant. Head normocephalic, atraumatic, with intact cranial nerves /EOMs grossly intact. Unlabored respirations. Skin appears dry with no pallor, cyanosis, or flushing. No scleral icterus or jaundice. No visible swelling, injury, rash, wound. Normal steady gait, no coordination problems, no tremors or abnormal movements seen. Relevant data reviewed Results from last 7 days Lab Units 10/20/25 2225 WHITE BLOOD CELL COUNT Thou/uL 5.7 HEMOGLOBIN g/dL 11.7 HEMATOCRIT % 35.0 PLATELET COUNT Thou/uL 181 Results from last 7 days Lab Units 10/21/25 0800 10/21/25 0053 10/20/25 2225 SODIUM mmol/L -- -- 131* POTASSIUM mmol/L -- -- 3.6 CHLORIDE mmol/L -- -- 95* CO2 mmol/L -- -- 24 BUN mg/dL -- -- 6* CREATININE mg/dL -- -- 0.40 EGFR -- -- >90 GLUCOSE mg/dL -- -- 404* GLUCOSE, POC mg/dL 226* < > -- CALCIUM mg/dL -- -- 8.7 < > = values in this interval not displayed. Sign Asya Rojas MD Addiction Medicine Fellow, PGY-5 10/21/2025 10:49 AM Cosigned by Violet Pham MD at 10/21/2025 2:03 PM EST Associated attestation - Violet Pham MD - 10/21/2025 2:03 PM EST Addiction Medicine Attending Attestation: I have personally interviewed and examined the patient and reviewed Dr. Cee's note. I agree with the history, exam, assessment and plan as detailed in the Resident note with the following additi ons/exceptions/observations: Briefly, this os a 29yo female with hx of reported AUD who was transferred from OSH to for further mgmt of possible ectopic . Addiction med consulted for mgmt of AUD/withdrawal. Pt more awake and alert today and able to provide the history that she was in recovery from AUD for3 years (on acamprosate and engaged in AA) leading up until day of presentation to OSH when she hada one time episode of return to drinking. She had stopped taking acamprosate about 2 weeks prior asshe thought she was in a good place so wanted to see how she did without the med. She reflected obviously I didn't do good without it . This history helps us make sense of her lethargy --- based on drinking one day prior to presentation to OSH after a 3 year period of sobriety, she was not even at risk for alcohol withdrawal. She received phenobarbital and some valium which resulted in sedation as she did not have a MIMI deficit (was not withdrawing). She plans to resume acamprosate when she gets home. She also plans to re-engage with AA that she has found very helpful before. Denies needing other supports at present. Diagnosis: Alcohol use disorder, in prior sustained remission with recent return to use (one day duration) Recommendations: - Discontinue CIWA monitoring/PRN benzodiazepines - Pt will resume acamprosate at discharge -- she has this medication at home/already has a prescriber for it. No contraindication to discharge from an addiction medicine perspective. Addiction Medicine will sign off. Please reach out directly should further questions arise. Sign: Violet Pham MD 10/21/2025 2:01 PM * Plan of Care - Shira Church RN - 10/21/2025 8:39 AM EST Plan of Care Reviewed With: patient Progress: no change Outcome Evaluation: Pt alert but confused, still able to make needs known. Pt became very irritable, restless and agitated overnight. C/o 10/10 abd/back pain. PRN pain med given per JAN with little effect. Pt stated she wanted to leave AMA. Provider notified and spoke with pt. Pt medicated per JAN.Safety maintained. Bed locked in lowest position. Plan of care ongoing. Shira Church 10/21/2025 8:39 AM * Plan of Care - Olga Velez APRN - 10/20/2025 11:41 PM EST Images from the original note were not included. [facility] COVERAGE NOTE Plan of Care RN asked that I come to bedside to discuss patients wishes to leave AMA Upon bedside evaluation, patient found walking in gonzalez with leads unhooked and swinging and patientwith wobbly gait. I was able to get her back to her room for discussion. When asked if she knew where she was she said [facility] and when asked the year she told me February 17 or When asked why she is here she states that she was drinking heavily. She was unaware of yesterdays events requiring narcan and details surrounding her (possible) ectopic. She became tearful saying she wants to leave the hospital and have her boyfriend pick her up despite her boyfriend on the phone telling her she needs to stay. I told her we still have tests pending, are awaiting lab workup for her high glucose and she is still in pain with the withdrawal component and it is not safe for her to leave the hospital yet. When she became hysterical meandering back to the hallway security was called to bedside however no intervention required. We were able to talk itout and myself and CONTINUOUS LOFT OPERATOR got patient back to bed. Plan for pain medication due to ongoing complaints of pain. Will score for CIWA and consider valiumbut stagger with pain medication given concerns for oversedation. 4 side rails up, patient is high fall risk. Low threshold to initiate COIN for safety. Discussed with nursing staff. Patient cannot make the decision to leave the hospital tonight as she lacks medical decision makingcapacity at this time. Sign: Olga Velez APRN 10/20/25 11:41 PM * Plan of Care - Shaina Barlow RN - 10/20/2025 7:20 PM EST Progress: no change Outcome Evaluation: Assumed care [id number]. pt lethargic but arousable during shift. a/o x4. able to make needs know. Calm and cooperative during shift. Medicated per JAN. Purposeful rounding complete. Safety maintained. Shaina Barlow 10/20/2025 7:20 PM * Assessment & Plan Note - Angelia Zavala MD - 10/20/2025 4:50 PM ESTAssociated Problem(s): Alcohol withdrawal with complication with inpatient treatment (HCC) (Resolved 10/21/2025) -Patient lethargic on exam but was able to protect her airway saturating well on room air - Of note she was receiving phenobarbital at outside hospital along with IV Valium and Benadryl - Of note overnight CREATIVE WRITING PROFESSOR was called due to lethargy after IV diazepam was administered and patient ended up receiving Narcan and woke up - Appreciate addiction medicine recommendation - Will start patient on oral as needed as needed diazepam alcohol withdrawal CIMT protocol - Will continue telemetry monitoring -will hold off gabapenti, oxcarbazepine for now given lethargic status in setting of DUAL phenobarbital and diazepam use * Assessment & Plan Note - Angelia Zavala MD - 10/20/2025 4:50 PM ESTAssociated Problem(s): Bipolar disorder (HCC) -Patient lethargic on exam but was able to protect her airway saturating well on room air - Of note she was receiving phenobarbital at outside hospital along with IV Valium and Benadryl - Of note overnight CREATIVE WRITING PROFESSOR was called due to lethargy after IV diazepam was administered and patient ended up receiving Narcan and woke up - Appreciate addiction medicine recommendation - Will start patient on oral as needed as needed diazepam alcohol withdrawal CIWA protocol - Will continue telemetry monitoring -will hold off gabapenti, oxcarbazepine for now given lethargic status in setting of DUAL phenobarbital and diazepam use * Assessment & Plan Note - Angelia Zavala MD - 10/20/2025 4:50 PM ESTAssociated Problem(s): PTSD (post-traumatic stress disorder) -Patient lethargic on exam but was able to protect her airway saturating well on room air - Of note she was receiving phenobarbital at outside hospital along with IV Valium and Benadryl - Of note overnight CREATIVE WRITING PROFESSOR was called due to lethargy after IV diazepam was administered and patient ended up receiving Narcan and woke up - Appreciate addiction medicine recommendation - Will start patient on oral as needed as needed diazepam alcohol withdrawal CIWA protocol - Will continue telemetry monitoring -will hold off gabapenti, oxcarbazepine for now given lethargic status in setting of DUAL phenobarbital and diazepam use * Assessment & Plan Note - Angelia Zavala MD - 10/20/2025 4:50 PM ESTAssociated Problem(s): Other ectopic without intrauterine -Pending transvaginal ultrasound and abdominal ultrasound for cholecystitis evaluation - Patient was complaining of abdominal pain and was on IV Dilaudid until this afternoon and changedto subcu Dilaudid Patient was placed n.p.o. for abdominal ultrasound * Assessment & Plan Note - Angelia Zavala MD - 10/20/2025 4:50 PM ESTAssociated Problem(s): Abdominal pain of multiple sites -Pending transvaginal ultrasound and abdominal ultrasound for cholecystitis evaluation - Patient was complaining of abdominal pain and was on IV Dilaudid until this afternoon and changedto subcu Dilaudid Patient was placed n.p.o. for abdominal ultrasound * Addiction Medicine Consult - Asya Rojas MD - 10/20/2025 1:57 PM ESTAssociated Order(s): Inpatient consult to Addiction Medicine Images from the original note were not included. This note is protected by federal confidentiality rules (42 CFR part 2). The federal rules prohibityou from making any further disclosure of this note unless further disclosure is expressly permitted by the written consent of the individual whose information is being disclosed in this record or, is otherwise permitted by 42 CFR part 2. A general authorization for the release of medical or other information is NOT sufficient for this purpose (see ???2.31). ADDICTION MEDICINE CONSULT Inpatient consult to Addiction Medicine Consult performed by: Asya Rojas MD Consult ordered by: Angelia Zavala MD Date of Consult: 10/20/2025 Patient's Primary Care Provider: No primary care provider on file. Physician Requesting Consult: Angelia Zavala MD ADDICTION MED PLAN Ibeth is a 29yo woman with PMHx of bipolar disorder, PTSD, DMII, alcohol use disorder and withdrawal and alcohol induced pancreatitis who presented to outside hospital with reported withdrawal seizures, found to have an ectopic . Transferred to for further medical care. Addiction Medicine consulted for alcohol withdrawal. Ibeth was lethargic at the time of our encounter. Very difficult to obtain a history from her. Shereported heavy alcohol use, without additional details. Her last drink was 3 days ago. She's received phenobarbital x1 and additional doses of benzodiazepines that appear to have filled her mimi requirements. Would avoid, therefore, giving any additional doses until she's awake and alert. Diagnosis: Alcohol use disorder Alcohol withdrawal Recommendations: - Continue to monitor CIWA scores - Would hold off on any additional doses of diazepam for now and start symptom triggered diazepam protocol once she's awake and alert - Will follow up tomorrow to obtain more history about her substance use SUBJECTIVE Chief Complaint - alcohol withdrawal Ibeth is a 29yo woman with PMHx of bipolar disorder, PTSD, DMII, alcohol use disorder and withdrawal and alcohol induced pancreatitis who presented to outside hospital with reported withdrawal seizures, found to have an ectopic . Transferred to for further medical care. Addiction Medicine consulted for alcohol withdrawal. Ibeth was lethargic at the time of our encounter. Very difficult to obtain a history from her, butgiven report about alcohol withdrawal and possible seizures would recommend continue ciwa monitoring and change valium protocol to symptom triggered once she starts scoring. Would avoid additional phenobarbital or schedule benzodiazepines, as suspect this may be contributing to her Patient received 260mg dose of Phenobarbital, haldol and benadryl before transfer yesterday. She then received 10mg of IV diazepam and 1mg of dilaudid. She received narcan few hours later due to significant lethargy. She's been scoring between 2-6 on the CIWA scale since arrival. She had no signs of opioid withdrawal, pupils were normal. DSM-5 and social history Last PDMP Review Date and Time: 10/20/2025 1:57 PM No past medical history on file. Review of Systems All other systems reviewed and are negative. OBJECTIVE urine toxicology results and general labs: No results found for: ETOH , ETOHU , AMPHTQTU , BARBIT , BENZOU , FENTANYL , FENTANYLUR , CANNAB , COCAINE , OPIATE , METHU , OXYCODONEUR , PCP , LABPROP , TCA , BUPRE CIWA-Ar Total: 2 Lethargic, unable to hold a conversation, well-appearing, in no acute distress. Head normocephalic,atraumatic, with intact cranial nerves /EOMs grossly intact. Unlabored respirations. Skin appears dry with no pallor, cyanosis, or flushing. No scleral icterus or jaundice. No visible swelling, injury, rash, wound. Normal steady gait, no coordination problems, no tremors or abnormal movements seen. Current Medications: cloNIDine, 0.1 mg, TID folic acid, 1 mg, Daily gabapentin, 800 mg, TID insulin lispro, 1-5 Units, Q4H KATHY multivitamin with minerals, 1 tablet, Daily OXcarbazepine, 600 mg, BID risperiDONE, 1 mg, BID senna-docusate, 2 tablet, Nightly sucralfate, 1 g, Before meals & nightly thiamine, 200 mg, Daily traZODone, 100 mg, Nightly acetaminophen, 975 mg, Q6H PRN bisacodyl, 10 mg, Daily PRN glucose, 1 Tube, Q15 Min PRN Or glucose, 2 Tube, Q15 Min PRN Or dextrose, 12.5 g, Q15 Min PRN Or dextrose, 25 g, Q15 Min PRN Or glucagon, 1 mg, Daily PRN diazepam, 10 mg, Q2H PRN Or diazepam, 10 mg, Q1H PRN haloperidol lactate, 2 mg, Q4H PRN [Provider Held] HYDROmorphone, 0.5 mg, Q3H PRN HYDROmorphone, 0.8 mg, Q3H PRN [Provider Held] HYDROmorphone, 1 mg, Q3H PRN lactulose, 30 mL, Q4H PRN naloxone, 0.4 mg, Q5 Min PRN ondansetron, 4 mg, Q6H PRN Sign Asya Rojas MD Addiction Medicine Fellow, PGY-5 10/20/2025 1:58 PM Cosigned by Violet Pham MD at 10/20/2025 3:45 PM EST Associated attestation - Violet Pham MD - 10/20/2025 3:45 PM EST Addiction Medicine Attending Attestation: I have personally interviewed and examined the patient and reviewed Dr. Cee's note. I agree with the history, exam, assessment and plan as detailed in the Resident note with the following additi ons/exceptions/observations: Briefly, dominic os a 29yo female with hx of reported AUD who was transferred from OSH to for further mgmt of possible ectopic . Addiction med consulted for mgmt of AUD/withdrawal. Patient very lethargic on exam when we saw her. She was eventually able to wake up when we shook her leg, and sat up in bed to speak with us, but was slow to respond to questions/was mumbling/slurring words on occasion. She had no objective signs of alcohol withdrawal when we saw her. I reviewed OSH records that accompanied her -- she received a 260mg dose of phenobarbital at [id number] on [facility]. Also received IV valium and benadryl at OSH. Overnight, a CREATIVE WRITING PROFESSOR was called due to acutelethargy following administration of IV diazepam 10mg. The fact that she was lethargic to the pointof CREATIVE WRITING PROFESSOR being called after this dose of diazepam suggests she does not have a significant MIMI deficit (or if she did, the phenobarbital she got at OSH may have adequately addressed this and is still working). Would monitor on CIWA and only provide oral diazepam. Patient was too lethargic to engage in discussion about longer-term management of alcohol use disorder. Will follow-up with her about this. Diagnosis: Alcohol use disorder Concern for alcohol withdrawal Recommendations: - Monitor on CIWA. - Discontinue current IV diazepam orders - Order symptom triggered oral diazepam in alcohol withdrawal order set in [facility] We will continue to follow Sign: Violet Pham MD 10/20/2025 3:43 PM * Case Coordination-Payor Communication - Diana Bell RN - 10/20/2025 12:48 PM EST Type: (Inpt/Obs): Inpatient Date of Admission: 10/19/2025 Admitting Dx: ectopic /cholelithiasis/ETOH withdrawal PMH: polysubstance use disorder with hx of ETOH induced pancreatitis HPI: Patient initially presented to outside hospital for concerns for alcohol withdrawal with possible seizure activity as well as abdominal pain. CBC was generally in revealing. CMP was notable for elevated blood glucose greater than 300, bicarb of 40, anion gap of 22. Lipase was within normal limits. ETOH was 333. A right upper quadrant ultrasound was completed which showed concerns for cholecystitis, with plans for a CT abdomen pelvis for further evaluation, however, beta-hCG subsequently returned positive. Transvaginal ultrasound was completed which subsequently demonstrated a 2.8 x 1.6 x 1.7 cm mass adjacent to the left ovary suspicious for ectopic . Given possible need for methotrexate vs. OR management, she was transferred here for further evaluation. On arrival here, she is afebrile, heart rates in 60s, RR 16, BP 129/97, saturating appropriate on room air. Labs are pending on will be reviewed. As a relates to her alcohol use, patient states she is struggled with this for quite some time. Shetypically indulges in hard liquor. She is unclear how many drinks she has been having over the lastseveral days-weeks; she states she does not even remember after certain point as she typically will blackout. She endorses at the least having more than 6 shots nightly over this time with her lastdrink being late last evening/early this morning. She endorses nausea and mild headache at present Of note, patient did have a abdominal ultrasound completed in the [facility] when patient presented for a similar presentation in the ultrasound was also concerning for cholecystitis then, however, she left AMA prior to surgical evaluation. Vitals: BP Temp Temp src Pulse Resp SpO2 10/19/252050 (!) 129/97 98 ??F (36.7 ??C) Tympanic 60 16 98 % Labs/Diagnostics: 10/19/25 21:25 10/20/25 00:44 10/20/25 01:00 10/20/25 02:02 10/20/25 04:32 10/20/25 04:59 10/20/25 08:15 10/20/25 11:40 White Blood Cell Count 5.9 5.6 Red Blood Cell Count 3.67 (L) 3.83 (L) Hemoglobin 11.0 (L) 11.4 (L) Hematocrit 32.4 (L) 33.3 (L) MCV 88 87 MCH 30.0 29.8 MCHC 34.0 34.2 RDW 11.9 11.9 Platelet Count 156 170 MPV 9.5 9.4 Neutrophils Auto 54.6 41.7 Abs Neutrophils Auto 3.24 2.35 Immature Granulocytes 0.2 0.2 Abs Immature Granulocytes 0.01 0.01 Lymphocytes Auto 36.5 49.7 Abs Lymphocytes Auto 2.17 2.80 Monocytes Auto 5.7 5.0 Abs Monocytes Auto 0.34 0.28 Eosinophils Auto 2.5 3.0 Abs Eosinophils Auto 0.15 0.17 Basophils Auto 0.5 0.4 Abs Basophils Auto 0.03 0.02 Sodium 133 (L) 136 Potassium 3.2 (L) 3.3 (L) Chloride 99 102 CO2, POC 25 25 Anion Gap 9 9 BUN 7 (L) 7 (L) Creatinine 0.38 (L) 0.44 Bun / Creat Ratio 18 16 Glucose 165 (H) 140 (H) Calcium 8.6 (L) 8.5 (L) Protein, Total 6.4 5.8 (L) Albumin 3.6 3.3 (L) Globulin 2.8 2.5 A/G Ratio 1.3 1.3 eGFR >90 >90 Bilirubin Total 0.4 0.4 Aspartate Aminotrans (AST/SGOT) 50 39 Alanine Aminotrans (ALT) 23 20 Alkaline Phosphatase 97 92 B-Hydroxybutyrate 0.06 Ammonia 43 Lipase 8 (L) Beta-hCG, Quantitative 155 (H) Hcg Qualitative Positive ! POC Glucose 155 (H) 166 (H) 180 (H) 137 (H) 140 (H) 182 (H) Orders/Treatment Plan: #ETOH Withdrawal #Abdominal Pain, Likely Multifactorial in the Setting of Ectopic , ETOH Gastritis #L. Ectopic #Concerns for Cholecystitis(?) #Bipolar Disorder #PTSD -Patient received 260mg dose of Phenobarbital at ~3p. Unclear if she received either of the next 2 doses in awaiting transit to . She additionally appears to have received Valium at the OSH in addition to the phenobarb therapy as well, which further clouds her picture. She seems certainly to be in pain on exam, however, does not seem to be in florid withdrawal, and is quite lethargic on exam. Given she is on several medications for her psychiatric hx that are sedating, and seeming as she may require increasing amounts of opioids, it seems most prudent (and safest) at this juncture to start the IV Valium taper w/ PRN rescue doses for breakthrough sx to prevent oversedation -Continue CIWA Protocol w/ plan per above -PRN Tylenol, IV Dilaudid for abdominal pain. Her pain seems generalized w/ a focused component in the left suprapubic/LQ region. It seems more likely her pain is multifactorial in the setting of gastritis and ectopic than GB and/or pancreas etiology (Lipase WNL at OSH) -Will repeat RUQ U/S here. Patient reportedly had a abdominal ultrasound concerning for cholecystitis in the middle of August at OSH for which she left AMA prior to being evaluated by surgery team. She does not have pain in the right upper quadrant, no fever, no leukocytosis. Her CMP from outside hospitals largely unremarkable, however, is not entirely surprising as cholecystitis can often present in the absence of alk phos or T. bili elevations. This being said, low suspicion for cholecystitis at this time; will monitor off antibiotics at this juncture - TVUS and beta-hCG ordered at the request of gynecology team who will make further recommendationsin the morning. The question will be whether she is a candidate for methotrexate vs. OR management of her ectopic as she passes through the withdrawal window -Patient on Glipizide and Metformin at home. Will get STAT CMP and BHB as BSG was reportedly in [id number] w/ a HAGMA at OSH. Need to rule out DKA. In the interim, will placed on q4h BSG checks and lowdose SSI while NPO. Transition to ACHS when diet advanced -NPO w/ IVF at present. Advance diet as tolerated -Continue Gabapentin 800mg TID -Continue Clonidine 0.1mg TID -Continue Trileptal 600mg BID -Continue Risperidone 1mg BID -Continue Trazodone 100mg nightly -Social Work Consult Placed -Folic Acid, Thiamine, MV -Tele Medications: cloNIDine (CATAPRES) tablet 0.1 mg Dose: 0.1 mg Freq: 3 times daily Route: PO Start: 10/19/252199 gabapentin (NEURONTIN) tablet 800 mg Dose: 800 mg Freq: 3 times daily Route: PO Start: 10/19/252199 insulin lispro (HumaLOG/ADMELOG) 100 units/mL injection 1-5 Units Dose: 1-5 Units Freq: Every 4 hours scheduled Route: SC Start: 10/19/252129 lactated ringers (LR) infusion Rate: 150 mL/hr Dose: 150 mL/hr Freq: Continuous Route: IV Last Dose: 150 mL/hr (10/19/252327) Start: 10/19/252129 HYDROmorphone (DILAUDID) injection 1 mg Dose: 1 mg Freq: Every 3 hours PRN Route: IV PRN Reason: severe to excruciating pain 7-10 Start: 10/19/252057 End: 10/26/252056 OXcarbazepine (TRILEPTAL) tablet 600 mg Dose: 600 mg Freq: 2 times daily Route: PO Start: 10/19/252129 risperiDONE (RisperDAL) tablet 1 mg Dose: 1 mg Freq: 2 times daily Route: PO Start: 10/19/252129 senna-docusate (SENNA-S) 8.6-50 MG tablet 2 tablet Dose: 2 tablet Freq: Nightly Route: PO Start: 10/19/252099 sucralfate (CARAFATE) 1 GM/10ML SUSPENSION 1 g Dose: 1 g Freq: 4 times daily before meals and nightly Route: PO Start: 10/19/252129 traZODone (DESYREL) tablet 100 mg Dose: 100 mg Freq: Nightly Route: PO Start: 10/19/252129 Bed Type: telemetry * Plan of Care - Shira Church RN - 10/20/2025 9:28 AM EST Plan of Care Reviewed With: patient Progress: no change Outcome Evaluation: Assumed care around 2029 after pt was transferred from OSH. Pt A&Ox4 and able to make needs known. Pt very irritable at times and c/o severe, constant abdominal pain. Providernotified and PRN pain med given with some effect. CREATIVE WRITING PROFESSOR called around 0100 when pt became unresponsive to stimuli. 0.2mg of naloxone was given and pt was stabilized. Continued to be lethargic throughout the rest of the night. Safety maintained. Bed locked in the lowest position. Plan of care ongoing. Shira Church 10/20/2025 9:28 AM * Significant Event - Miranda Duarte MD - 10/20/2025 1:56 AM EST Presented to bedside following rapid response called on patient due to unresponsiveness. In brief, she is a 29-year-old with past medical history significant for alcohol induced pancreatitis and polysubstance use admitted for alcohol withdrawal. She also was noted to have abdominal pain and was found to have a beta-hCG of 241 at outside hospital. Transvaginal ultrasound at thattime notable for 2 cm adnexal structure concerning for ectopic . Abdominal ultrasound at that time was also concerning for cholecystitis. Unfortunately these images are not available for review. She was transferred for possible EDUCATION FACULTY MEMBER evaluation for surgical intervention. I evaluated this patient with Dr. Roland at approximately 10 PM this evening. Formal consult note to follow. At that time, she appeared somnolent but was able to hold a conversation, though she wouldfrequently fall asleep mid sentence. Her predominant complaint was epigastric pain radiating to herright upper quadrant. Lower abdominal exam at that time benign without rebound tenderness or guarding. She declined a pelvic exam. Repeat beta-hCG and transvaginal ultrasound requested however have not yet been performed as patient was refusing blood draws overnight. On my arrival, patient still appears somnolent however her vitals are stable and her abdomen remains benign and nonsurgical. She received Narcan with some improvement. Low suspicion for ruptured ectopic at this point. From a EDUCATION FACULTY MEMBER perspective, she still needs a beta-hCG and transvaginal ultrasound for full evaluation. EDUCATION FACULTY MEMBER will continue to follow along. Discussed with Dr. Roland. Signed Miranda Duatre MD [facility] O[facility] PGY-4 10/20/2025 2:04 AM (p) [phone] Cosigned by Shital Roland MD at 10/20/2025 3:06 AM EST Associated attestation - Shital Roland MD - 10/20/2025 3:06 AM EST Teaching Physician Attestation Level of Participation I discussed with Dr. Duarte the patient's history, exam, assessment and plan as detailed in the resident/fellow's note. I agree with the findings and plan. * Medical Emergency Response Note - Rex Hicks MD - 10/20/2025 1:46 AM EST Medical Emergency Response Note Date: 10/20/2025 Age: 29 y.o. Race/Ethnicity: / Called By (Name and Title): Floor RN [id number] Ad[facility] Date: 10/19/2025 8:01 PM Primary Team Attending: Juan Mayorga MD Service: Medicine General Response Type: Rapid Response (CREATIVE WRITING PROFESSOR) Time CREATIVE WRITING PROFESSOR response team arrived (:mm): 1:10 AM Time CREATIVE WRITING PROFESSOR response team departed (:mm): 1:35 AM Situation/ Primary Reason for call Staff Concern: unresponsiveness Specific Symptomatology based on System: Neuro: Stroke symptoms: unresponsiveness Clinical Summary ( Pertinent recent clinical changes in past 24hr and evaluation ): Ibeth Sommers is a 29 year old female with a past medical history of bipolar disorder, PTSD, DM2, polysubstance abuse disorder including alcohol withdrawal, alcohol induced pancreatitis, who presentedto outside hospital for alcohol withdrawal symptoms, was found to have a left ectopic , transferred to for PERSONNEL CLERKS SUPERVISOR evaluation. At 1:10 AM, CREATIVE WRITING PROFESSOR was called for increasing lethargy, followed by unresponsiveness. A few minutes prior to the CREATIVE WRITING PROFESSOR, patient had received 10 mg of IV diazepam for alcohol withdrawal management after which she acutely became more lethargic. Additionally the patient had received 1 mg of IV Dilaudid at 10 PM for severe abdominal pain. On arrival, patient was unresponsive to verbal or tactile stimuli. Withdraws to noxious stimuli andopens her eyes intermittently. Vital signs were noted to be stable, patient saturating well on roomair with stable blood pressure. On examination, patient noted to have mildly constricted pupils. Noseizure like activity noted. Due to reported history of seizures and alcohol withdrawal, stat EEG was ordered. POCT glucose was checked and was 155. Additional labs including VBG, ammonia level BMP were ordered. Due to concern that lethargy is iatrogenic in the setting of receiving both opioids and benzodiazepines, patient was administered 0.2 mg of naloxone with improvement of symptoms shortly after. She woke up and was able to respond to verbal stimuli. No focal deficits noted. The patient was transferred from this location in the last 24 hours: Direct transfer from OSH Code Status prior to start of CREATIVE WRITING PROFESSOR: full code Objective Vitals: 10/19/25 2051 10/20/25 0100 BP: (!) 129/97 119/83 Pulse: 60 (!) 54 Resp: 16 18 Temp: 98 ??F (36.7 ??C) (!) 46.4 ??F (8 ??C) SpO2: 98% 100% Physical Exam Vitals and nursing note reviewed. Constitutional: General: She is sleeping. Cardiovascular: Rate and Rhythm: Normal rate. Pulmonary: Effort: Pulmonary effort is normal. Musculoskeletal: Right lower leg: No edema. Left lower leg: No edema. Skin: General: Skin is warm. Neurological: Mental Status: She is lethargic. Relevant data reviewed Cardiac Rhythm/EKG Changes during the CREATIVE WRITING PROFESSOR from baseline: No Results from last 7 days Lab Units 10/20/25 0044 10/19/25 2125 GLUCOSE, POC mg/dL 166* 155* Assessment & Plan Principal Problem: Alcohol withdrawal with complication with inpatient treatment (HCC) (POA: Yes) Active Problems: Abdominal pain of multiple sites (POA: Unknown) Other ectopic without intrauterine (POA: Unknown) Bipolar disorder (HCC) (POA: Unknown) PTSD (post-traumatic stress disorder) (POA: Unknown) Resolved Problems: Interventions during CREATIVE WRITING PROFESSOR: EKG and Labs Medications during CREATIVE WRITING PROFESSOR: Naloxone 0.2 mg x 1 Additional plan information: - Current picture consistent with likely iatrogenic cause of lethargy in the setting of receiving both opioids and benzodiazepines - Lethargy improved significantly s/p 0.2 mg of naloxone - Follow labs including ammonia, VBG, beta HCG - STAT EEG ordered - OBGYN following given concerns for ectopic - Would hold further opioid administration and would hold further benzodiazepines at this time given significant lethargy - Patient remains appropriate for floor level of care given stable vitals, ability to protect her airway and improving mental status Patient Outcome After the CREATIVE WRITING PROFESSOR the following was the outcome: Stabilized/Transfer Not Indicated Debriefing 1- Family member/healthcare proxy notified: [facility]: 2- Debriefing completed with core team: Yes 3- Plan of Care reviewed: Yes Billing Not Applicable * Plan of Care - Cindy Alberts PA-C - 10/19/2025 6:31 PM EST PATIENT ACCEPTANCE NOTE SITUATION I was called by provider Dr. Brizuela from [facility] in regards to Ibeth Sommers to be transferred to the [facility]. Their phone number is [phone] in case more information is required. They are requesting the transfer to [facility] for procedural intervention and cosmetic consultant service which is not available in their facility. BACKGROUND Past Medical History: Ibeth Sommers has no past medical history on file. Past Surgical History: Ibeth Sommers has no past surgical history on file. Allergies: Iebth Sommers has no allergies on file. Patient was seen in the Outside hospital/ clinic for ETOH withdrawal, subsequently found to have ectopic ASSESSMENT Patient is a 27 y/o female with PMHx significant for bipolar disorder, polysubstance use disorder, alcohol use disorder, and hx of pancreatitis who presented to [facility] with complaints of severe abdominal pain, nausea, and vomiting. Patient was recently treated for pancreatitis on previous admission in August 2025. Prior to obtaining CT A/P for further work up, a test was confirmed positive (HCG 274). Transvaginal ultrasound confirmed 4 week ectopic . OBGYN was consulted and recommended that the patient should be given methotrexate however this cannot be administered at OSH. EDUCATION FACULTY MEMBER was contacted for transfer to their service for further work up and management (methotrexatevs. Surgical OR), however patient is having active ETOH withdrawal and EDUCATION FACULTY MEMBER felt this patient would be better served on Medicine Service with EDUCATION FACULTY MEMBER consult. Notable Labs: Ethanol 333, LFT - within normal limits, however should be repeated prior to methotrexate administration (per EDUCATION FACULTY MEMBER) Patient CIWA have been 14, 4, 4, 13 at outside hospital. Patient was started on phenobarbital protocol at outside hospital (can receive another 240mg today per protocol). Patient hemodynamically stable and appropriate for floors at time of acceptance. Patient will require transfer to for higher level of care, EDUCATION FACULTY MEMBER consultation and possible intervention of ectopic and management by primary team of ETOH withdrawal. RECOMMENDATION Recommend calling the Consults: Audio Visual Collections Coordinator once the patient arrives. Patient requirements : Telemetry : Yes Isolation: none Precautions: none Private Room: Yes Special Needs: Ectopic Cindy Alberts PA-C Date: 10/19/2025 Time: 6:47 PM documented in this encounter Plan of Treatment Pending Results Name Type Priority Associated Diagnoses Date /Time Pathology Pathology and Cytology Routine 3:18 PM EST Scheduled Orders Name Type Priority Associated Diagnoses Orde r Schedule Pathology Pathology and Cytology Routine Re lease Upon Ordering for 1 Occurrences starting 10/21/2025 documented as of this encounter Procedures Procedure Name Priority Date/Time Associated Diagnosis Comments POCT GLUCOSE, FINGERSTICK (CHARGE) Routine 10/22/2025 11:39 AM EST POCT GLUCOSE, FINGERSTICK (CHARGE) Routine 10/22/2025 7:44 AM EST HEMOGLOBIN A1C WITH ESTIMATED AVERAGE GLUCOSE Routine 10/22/2025 7:17 AM EST COMPLETE BLOOD COUNT, WITHOUT DIFFERENTIAL Routine 10/22/2025 7:17 AM EST POCT GLUCOSE, FINGERSTICK (CHARGE) Routine 10/22/2025 2:17 AM EST POCT GLUCOSE, FINGERSTICK (CHARGE) Routine 10/22/2025 12:20 AM EST POCT GLUCOSE, FINGERSTICK (CHARGE) Routine 10/21/2025 8:26 PM EST POCT GLUCOSE, FINGERSTICK (CHARGE) Routine 10/21/2025 6:14 PM EST POCT GLUCOSE, FINGERSTICK (CHARGE) Routine 10/21/2025 3:52 PM EST ISTAT GLUCOSE (NO CHARGE) Routine 10/21/2025 3:17 PM EST POCT GLUCOSE, FINGERSTICK (CHARGE) Routine 10/21/2025 11:45 AM EST US TRANSABDOMINAL LESS 14 WEEKS + US PREG TRANSVAGINAL W/LIMITED DOPPLER Routine 10/21/2025 9:43 AM EST POCT GLUCOSE, FINGERSTICK (CHARGE) Routine 10/21/2025 8:00 AM EST BETA-HCG, QUANTITATIVE Routine 7:40 AM EST BASIC METABOLIC PANEL Routine 10/21/2025 7:40 AM EST POCT GLUCOSE, FINGERSTICK (CHARGE) Routine 10/21/2025 4:49 AM EST POCT GLUCOSE, FINGERSTICK (CHARGE) Routine 10/21/2025 12:53 AM EST B-HYDROXYBUTYRATE Routine 10/20/2025 10: 25 PM EST COMPLETE BLOOD COUNT, WITH DIFFERENTIAL Routine 10/20/2025 10:25 PM EST OSMOLALITY Routine 10/20/2025 10:25 PM EST COMPREHENSIVE METABOLIC PANEL Routine 10/20/2025 10:25 PM EST POCT GLUCOSE, FINGERSTICK (CHARGE) Routine 10/20/2025 9:27 PM EST POCT GLUCOSE, FINGERSTICK (CHARGE) Routine 10/20/2025 9:09 PM EST EEG ROUTINE Routine 10/20/2025 7:20 PM EST POCT GLUCOSE, FINGERSTICK (CHARGE) Routine 10/20/2025 4:59 PM EST US ABDOMEN-LIMITED Routine 10/20/2025 4: 15 PM EST POCT GLUCOSE, FINGERSTICK (CHARGE) Routine 10/20/2025 11:40 AM EST POCT GLUCOSE, FINGERSTICK (CHARGE) Routine 10/20/2025 8:15 AM EST COMPLETE BLOOD COUNT, WITH DIFFERENTIAL Routine 10/20/2025 4:59 AM EST AMMONIA LEVEL Routine 10/20/2025 4:59 AM EST COMPREHENSIVE METABOLIC PANEL Routine 10/20/2025 4:59 AM EST POCT GLUCOSE, FINGERSTICK (CHARGE) Routine 10/20/2025 4:32 AM EST POCT GLUCOSE, FINGERSTICK (CHARGE) Routine 10/20/2025 2:02 AM EST B-HYDROXYBUTYRATE Routine 10/20/2025 1:0 0 AM EST BETA-HCG, QUALITATIVE, REFLEX QUANT Routine 10/20/2025 1:00 AM EST COMPLETE BLOOD COUNT, WITH DIFFERENTIAL Routine 10/20/2025 1:00 AM EST BETA-HCG, QUANTITATIVE Routine 1:00 AM EST LIPASE Routine 10/20/2025 1:00 AM EST COMPREHENSIVE METABOLIC PANEL Routine 10/20/2025 1:00 AM EST POCT GLUCOSE, FINGERSTICK (CHARGE) Routine 10/20/2025 12:44 AM EST POCT GLUCOSE, FINGERSTICK (CHARGE) Routine 10/19/2025 9:25 PM EST documented in this encounter Results * (ABNORMAL) POCT Glucose, Fingerstick (10/22/2025 11:39 AM EST) POC Glucose 247(H) 65 - 99 mg/dL 10/22/2025 11:39 AM EST Blood specimen / Unknown 10/22/2025 11:39 AM EST 10/22/2025 11:40 AM EST Jose Trejo MD POINT OF CARE TEST ORDERABLES Fi nal Result HOSPITAL LAB See Below * (ABNORMAL) POCT Glucose, Fingerstick (10/22/2025 7:44 AM EST) POC Glucose 217(H) 65 - 99 mg/dL 10/22/2025 7:51 AM EST Blood specimen / Unknown 10/22/2025 7:44 AM EST 10/22/2025 7:51 AM EST us Jose Trejo MD POINT OF CARE TEST ORDERABLES Fi nal Result HOSPITAL LAB See Below * (ABNORMAL) COMPLETE BLOOD COUNT, WITHOUT DIFFERENTIAL (10/22/2025 7:17 AM EST) White Blood Cell Count 5.5 4.0 - 11.0 Thou/uL 10/22/2025 8:25 AM [facility] Platelet Count 136(L) 150 - 450 Thou/uL 10/22/2025 8:25 AM [facility] Hemoglobin 11.5(L) 11.7 - 15.7 g/dL 10/22/2025 8:25 AM [facility] Hematocrit 33.7(L) 35.0 - 47.0 % 10/22/2025 8:25 AM [facility] Red Blood Cell Count 3.77(L) 4.00 - 5.40 Mil/uL 10/22/2025 8:25 AM [facility] MCV 89 80 - 100 fL 10/22/2025 8:25 AM [facility] MCH 30.5 26.0 - 34.0 pg 10/22/2025 8:25 AM [facility] MCHC 34.1 30.0 - 36.0 g/dL 10/22/2025 8:25 AM [facility] RDW 11.9 11.5 - 14.5 % 10/22/2025 8:25 AM [facility] MPV 10.7 7.5 - 12.5 fL 10/22/2025 8:25 AM [facility] Blood Blood specimen / Unknown 10/22/2025 7:17 AM EST 10/22/2025 7:27 AM EST us Khoa Parrish MD LAB BLOOD ORDERABLES Final Resul t Performing Organization Address City/[facility]/[place] [address], [place] [address] * (ABNORMAL) Hemoglobin A1c with Estimated Average Glucose (AM) (10/22/2025 7:17 AM EST) Hemoglobin A1C 9.5(H) <5.7 % 10/22/2025 9:07 AM [facility] Comment: A1c% Interpretation 5.7 - 6.0 Increase risk of diabetes 6.1 - 6.4 Higher risk of diabetes > or = 6.5 Consistent with diabetes Diabetes Care, 33(Supp 1):S1-S61, 2010 Estimated Average Glucose 226 mg/dL 10/22/2025 9:07 AM [facility] Blood Blood specimen / Unknown 10/22/2025 7:17 AM EST 10/22/2025 7:27 AM EST us Khoa Parrish MD LAB BLOOD ORDERABLES Final Resul t Performing Organization Address City/[facility]/[place] [address], [place] [address] * (ABNORMAL) POCT Glucose, Fingerstick (10/22/2025 2:17 AM EST) POC Glucose 305(H) 65 - 99 mg/dL 10/22/2025 2:18 AM EST Blood specimen / Unknown 10/22/2025 2:17 AM EST 10/22/2025 2:18 AM EST us Jose Trejo MD POINT OF CARE TEST ORDERABLES Fi nal Result HOSPITAL LAB See Below * (ABNORMAL) POCT Glucose, Fingerstick (10/22/2025 12:20 AM EST) POC Glucose 263(H) 65 - 99 mg/dL 10/22/2025 12:21 AM EST Blood specimen / Unknown 10/22/2025 12:20 AM EST 10/22/2025 12:21 AM EST us Jose Trejo MD POINT OF CARE TEST ORDERABLES Fi nal Result Performing Organization Address [facility] LAB See Below * (ABNORMAL) POCT Glucose, Fingerstick (10/21/2025 8:26 PM EST) POC Glucose 310(H) 65 - 99 mg/dL 10/21/2025 8:26 PM EST Blood specimen / Unknown 10/21/2025 8:26 PM EST 10/21/2025 8:27 PM EST us Jose Trejo MD POINT OF CARE TEST ORDERABLES Fi nal Result Performing Organization Address [facility] LAB See Below * (ABNORMAL) POCT Glucose, Fingerstick (10/21/2025 6:14 PM EST) POC Glucose 229(H) 65 - 99 mg/dL 10/21/2025 6:15 PM EST Blood specimen / Unknown 10/21/2025 6:14 PM EST 10/21/2025 6:15 PM EST us Jose Trejo MD POINT OF CARE TEST ORDERABLES Fi nal Result Performing Organization Address [facility] LAB See Below * (ABNORMAL) POCT Glucose, Fingerstick (10/21/2025 3:52 PM EST) POC Glucose 249(H) 65 - 99 mg/dL 10/21/2025 3:56 PM EST Blood specimen / Unknown 10/21/2025 3:52 PM EST 10/21/2025 3:56 PM EST us Jose Trejo MD POINT OF CARE TEST ORDERABLES Fi nal Result Performing Organization Address [facility] LAB See Below * (ABNORMAL) ISTAT Glucose (10/21/2025 3:17 PM EST) Glucose, I-STAT 245(H) 65 - 99 mg/dL 10/21/2025 3:22 PM EST Blood specimen / Unknown 10/21/2025 3:17 PM EST 10/21/2025 3:22 PM EST us Angelia Zavala MD POCT ORDERABLES - DEVICE Final Result HOSPITAL LAB See Below * (ABNORMAL) POCT Glucose, Fingerstick (10/21/2025 11:45 AM EST) POC Glucose 233(H) 65 - 99 mg/dL 10/21/2025 11:49 AM EST Blood specimen / Unknown 10/21/2025 11:45 AM EST 10/21/2025 11:49 AM EST us Jose Trejo MD POINT OF CARE TEST ORDERABLES Fi nal Result Performing Organization Address [facility] Co de Phone Number HOSPITAL LAB See Below * US OB Transabdominal < 14 weeks + US OB Transvaginal with Limited Doppler (10/21/2025 9:43 AM EST) Anatomical Region Laterality Modality Pelvis Ultrasound 10/21/2025 9:00 AM EST Impressions 10/21/2025 10:32 AM EST 1. Complex left adnexal mass is redemonstrated measuring approximately 1.8 x 1.5 x 2.1 cm, slightly decreased in size from prior. This again is suspicious for ectopic gestation. 2. Interval development of hyperechoic products, likely blood products, and simple fluid in the endometrial canal. Interpreted by: José Manuel Fried DO Licsw I personally reviewed the images and the resident's preliminary report and AGREE with the report as it is now presented ([email or web address]). Narrative 10/21/2025 10:32 AM EST EXAMINATION: US EDUCATION FACULTY MEMBER PELVIS TRANSABDOMINAL COMPLETE, US EDUCATION FACULTY MEMBER TRANSVAGINAL WITH COMPLETE DOPPLER CLINICAL INFORMATION: Concerns for Ectopic as seen on prior ultrasound. Abdominal pain. Quantitative hCG of 159. Last menstrual period 2 weeks ago. TECHNIQUE: Real-time transabdominal and transvaginal pelvic ultrasound examinations were performed. Transvaginal images were obtained to better define anatomy. COMPARISON: Pelvic ultrasound 10/19/2025. FINDINGS: The uterus is anteverted and measures 8.7 x 4.1 x 5.0 cm (sag x AP x TRV). It appears unremarkable in echotexture. A few nabothian cysts are seen. The endometrium is thickened measuring 1.3 cm in thickness with heterogeneously hyperechoic and mixed anechoic products. No definite intrauterine gestational sac is identified. The right ovary measures 2.9 x 2.2 x 2.3 cm. The left ovary measures 2.1 x 1.6 x 2.1 cm. The ovaries have normal arterial and venous spectral waveforms. Complex left adnexal mass measuring 1.8 x 1.5 x 2.1 cm is redemonstrated. No fluid is identified in the cul-de-sac. Procedure Note Micki Menezes MD - 10/21/2025 EXAMINATION: US EDUCATION FACULTY MEMBER PELVIS TRANSABDOMINAL COMPLETE, US EDUCATION FACULTY MEMBER TRANSVAGINAL WITH COMPLETE DOPPLER CLINICAL INFORMATION: Concerns for Ectopic as seen on prior ultrasound. Abdominal pain. Quantitative hCG of 159. Last menstrual period 2 weeks ago. TECHNIQUE: Real-time transabdominal and transvaginal pelvic ultrasound examinations were performed. Transvaginal images were obtained to better define anatomy. COMPARISON: Pelvic ultrasound 10/19/2025. FINDINGS: The uterus is anteverted and measures 8.7 x 4.1 x 5.0 cm (sag x AP x TRV). It appears unremarkable in echotexture. A few nabothian cysts are seen. The endometrium is thickened measuring 1.3 cm in thickness with heterogeneously hyperechoic and mixed anechoic products. No definite intrauterine gestational sac is identified. The right ovary measures 2.9 x 2.2 x 2.3 cm. The left ovary measures 2.1 x 1.6 x 2.1 cm. The ovaries have normal arterial and venous spectral waveforms. Complex left adnexal mass measuring 1.8 x 1.5 x 2.1 cm is redemonstrated. No fluid is identified in the cul-de-sac. IMPRESSION: 1. Complex left adnexal mass is redemonstrated measuring approximately 1.8 x 1.5 x 2.1 cm, slightly decreased in size from prior. This again is suspicious for ectopic gestation. 2. Interval development of hyperechoic products, likely blood products, and simple fluid in the endometrial canal. Interpreted by: José Manuel Fried DO Licsw I personally reviewed the images and the resident's preliminary report and AGREE with the report as it is now presented ([email or web address]). us Juan Mayorga MD IMG OB US ORDERABLES Final Res ult * (ABNORMAL) POCT Glucose, Fingerstick (10/21/2025 8:00 AM EST) POC Glucose 226(H) 65 - 99 mg/dL 10/21/2025 8:13 AM EST Blood specimen / Unknown 10/21/2025 8:00 AM EST 10/21/2025 8:13 AM EST us Jose Trejo MD POINT OF CARE TEST ORDERABLES Fi nal Result HOSPITAL LAB See Below * (ABNORMAL) Basic Metabolic Panel (10/21/2025 7:40 AM EST) Glucose Add-on cannot be performed, specimen stability . 65 - 99 mg/dL 10/21/2025 1:44 PM [facility] Blood Urea Nitrogen (BUN) 6(L) 8 - 21 mg/dL 10/21/2025 2:01 PM [facility] Creatinine 0.47 0.40 - 1.10 mg/dL 10/21/2025 2:01 PM [facility] eGFR >90 >59 10/21/2025 2:01 PM [facility] Comment:CKD-EPI (2020) in mL /min/1.73 sq meters. Sodium Add-on cannot be performed, specimen stability . 136 - 145 mmol/L 10/21/2025 1:44 PM [facility] Potassium Add-on cannot be performed, specimen stability . 3.4 - 5.3 mmol/L 10/21/2025 1:44 PM [facility] Chloride Add-on cannot be performed, specimen stability . 98 - 107 mmol/L 10/21/2025 1:44 PM [facility] CO2 Add-on cannot be performed, specimen stability . 22 - 33 mmol/L 10/21/2025 1:44 PM [facility] Calcium 9.6 8.7 - 10.5 mg/dL 10/21/2025 2:01 PM [facility] BUN/Creatinine Ratio 13 10.0 - 25.0 Ratio 10/21/2025 2:01 PM [facility] 10/21/2025 7:40 AM EST 10/21/2025 8:08 AM EST us Lisy Neumann MD LAB BLOOD ORDERABLES Final Result Performing Organization Address [facility] [place] [address], [place] [address] * (ABNORMAL) Beta-hCG, Quantitative (10/21/2025 7:40 AM EST) Beta-hCG, Quantitative 159(H) <5 mIU/mL 10/21/2025 8:50 AM [facility] Blood Blood specimen / Unknown 10/21/2025 7:40 AM EST 10/21/2025 8:08 AM EST us Lisy Neumann MD LAB BLOOD ORDERABLES Final Result Performing Organization Address [facility] [place] [address], [place] [address] * (ABNORMAL) POCT Glucose, Fingerstick (10/21/2025 4:49 AM EST) POC Glucose 124(H) 65 - 99 mg/dL 10/21/2025 4:50 AM EST Blood specimen / Unknown 10/21/2025 4:49 AM EST 10/21/2025 4:50 AM EST us Jose Trejo MD POINT OF CARE TEST ORDERABLES Fi nal Result Performing Organization Address City/[facility]/ZIP Co de Phone Number HOSPITAL LAB See Below * (ABNORMAL) POCT Glucose, Fingerstick (10/21/2025 12:53 AM EST) POC Glucose 254(H) 65 - 99 mg/dL 10/21/2025 12:53 AM EST Blood specimen / Unknown 10/21/2025 12:53 AM EST 10/21/2025 12:54 AM EST Jose Trejo MD POINT OF CARE TEST ORDERABLES Fi nal Result HOSPITAL LAB See Below * Osmolality (10/20/2025 10:25 PM EST) Pathologist [facility] Osmolality, Serum/Plasma 293 275 - 295 mOsm/Kg 10/21/2025 1:54 AM [facility] Blood Blood specimen / Unknown 10/20/2025 10:25 PM EST 10/20/2025 10:55 PM EST Olga Velez APRN LAB BLOOD ORDERABLES Final Result Performing Organization Address [facility] [place] [address], [place] [address] * (ABNORMAL) Comprehensive Metabolic Panel (10/20/2025 10:25 PM EST) Pathologist [facility] Glucose 404(HH) 65 - 99 mg/dL 10/20/2025 11:30 PM [facility] Comment:Fasting: <100 mg/dL, Non-Fasting: <200 mg/dL (ADA 2005) Blood Urea Nitrogen (BUN) 6(L) 8 - 21 mg/dL 10/20/2025 11:30 PM [facility] Creatinine 0.40 0.40 - 1.10 mg/dL 10/20/2025 11:30 PM [facility] eGFR >90 >59 10/20/2025 11:30 PM [facility] Comment:CKD-EPI (2020) in mL /min/1.73 sq meters. Sodium 131(L) 136 - 145 mmol/L 10/20/2025 11:30 PM [facility] Potassium 3.6 3.4 - 5.3 mmol/L 10/20/2025 11:30 PM [facility] Chloride 95(L) 98 - 107 mmol/L 10/20/2025 11:30 PM [facility] CO2 24 22 - 33 mmol/L 10/20/2025 11:30 PM [facility] Calcium 8.7 8.7 - 10.5 mg/dL 10/20/2025 11:30 PM [facility] Alkaline Phosphatase 109 32 - 122 U/L 10/20/2025 11:30 PM [facility] Aspartate Aminotrans (AST) 35 10 - 50 U/L 10/20/2025 11:30 PM [facility] Alanine Aminotrans (ALT) 25 10 - 50 U/L 10/20/2025 11:30 PM [facility] Bilirubin, Total 0.2 0.2 - 1.0 mg/dL 10/20/2025 11:30 PM [facility] Protein, Total 6.3 6.3 - 8.3 g/dL 10/20/2025 11:30 PM [facility] Albumin 3.9 3.5 - 5.0 g/dL 10/20/2025 11:30 PM [facility] BUN/Creatinine Ratio 15 10.0 - 25.0 Ratio 10/20/2025 11:30 PM [facility] Globulin 2.4 1.5 - 3.9 g/dL 10/20/2025 11:30 PM [facility] Albumin/Globulin Ratio 1.6 1.0 - 3.0 Ratio 10/20/2025 11:30 PM [facility] Anion Gap 12 7 - 17 10/20/2025 11:30 PM [facility] Blood Blood specimen / Unknown 10/20/2025 10:25 PM EST 10/20/2025 10:55 PM EST us Olga Velez APRN LAB BLOOD [place] [address], [place] [address] * (ABNORMAL) Complete Blood Count, with Differential (10/20/2025 10:25 PM EST) Pathologist [facility] White Blood Cell Count 5.7 4.0 - 11.0 Thou/uL 10/20/2025 11:27 PM [facility] Platelet Count 181 150 - 450 Thou/uL 10/20/2025 11:27 PM [facility] Hemoglobin 11.7 11.7 - 15.7 g/dL 10/20/2025 11:27 PM [facility] Hematocrit 35.0 35.0 - 47.0 % 10/20/2025 11:27 PM [facility] Red Blood Cell Count 3.98(L) 4.00 - 5.40 Mil/uL 10/20/2025 11:27 PM [facility] MCV 88 80 - 100 fL 10/20/2025 11:27 PM [facility] MCH 29.4 26.0 - 34.0 pg 10/20/2025 11:27 PM [facility] MCHC 33.4 30.0 - 36.0 g/dL 10/20/2025 11:27 PM [facility] RDW 11.9 11.5 - 14.5 % 10/20/2025 11:27 PM [facility] MPV 10.0 7.5 - 12.5 fL 10/20/2025 11:27 PM [facility] Neutrophils Auto 66.2 % 10/20/20 11:27 PM [facility] Immature Granulocytes 0.3 % 10/20/2025 11:27 PM [facility] Lymphocytes Auto 26.4 % 10/20/20 11:27 PM [facility] Monocytes Auto 4.2 % 10/20/2025 11:27 PM [facility] Eosinophils Auto 2.6 % 10/20/20 11:27 PM [facility] Basophils Auto 0.3 % 10/20/2025 11:27 PM [facility] Abs Neutrophils Auto 3.79 2.00 - 7.50 Thou/uL 10/20/2025 11:27 PM [facility] Abs Immature Granulocytes 0.02 0.00 - 0.10 Thou/uL 10/20/2025 11:27 PM [facility] Abs Lymphocytes Auto 1.51 1.50 - 4.50 Thou/uL 10/20/2025 11:27 PM [facility] Abs Monocytes Auto 0.24 0.20 - 1.50 Thou/uL 10/20/2025 11:[address] [facility] Abs Eosinophils Auto 0.15 0.00 - 0.70 Thou/uL 10/20/2025 11:27 PM [facility] Abs Basophils Auto 0.02 0.00 - 0.20 Thou/uL 10/20/2025 11:[address] [facility] Blood Blood specimen / Unknown 10/20/2025 10:25 PM EST 10/20/2025 10:55 PM EST Olga O Rosie [employer] LAB BLOOD [place] [address], [place] [address] * B-Hydroxybutyrate (10/20/2025 10:25 PM EST) B-Hydroxybutyrate <0.05 <0.28 mmol/L 10/20/2025 11:42 PM [facility] Comment: In the presence of uncontrolled diabetes, serum beta-hydroxybutyrate levels greater than or equal to 3.80 mmol/L (patients age 16 and over) or greater than or equal to 3.00 mmol/L (patients under age 16) support a clinical diagnosis of Diabetic Ketoacidosis (DKA) - Ref: Diabetes Care 31: 643 (2007). Blood Blood specimen / Unknown 10/20/2025 10:25 PM EST 10/20/2025 10:55 PM EST Olga Velez APRN LAB BLOOD [place] [address], [place] [address] * (ABNORMAL) POCT Glucose, Fingerstick (10/20/2025 9:27 PM EST) POC Glucose 460(H) 65 - 99 mg/dL 10/20/2025 9:32 PM EST Blood specimen / Unknown 10/20/2025 9:27 PM EST 10/20/2025 9:32 PM EST us Jose Trejo MD POINT OF CARE TEST ORDERABLES Fi nal Result HOSPITAL LAB See Below * (ABNORMAL) POCT Glucose, Fingerstick (10/20/2025 9:09 PM EST) POC Glucose >500(H) 65 - 99 mg/dL 10/20/2025 9:11 PM EST Blood specimen / Unknown 10/20/2025 9:09 PM EST 10/20/2025 9:11 PM EST us Jose Trejo MD POINT OF CARE TEST ORDERABLES Fi nal Result Performing Organization Address City/[facility]/ZIP Co de Phone Number HOSPITAL LAB See Below * EEG AWAKE OR DROWSY (10/20/2025 7:20 PM EST) Narrative [facility] - 10/20/2025 7:20 PM EST Juan Dillon MD 10/21/2025 8:04 AM INPATIENT ADULT ELECTROENCEPHALOGRAM (EEG) REPORT Facility: [facility] Patient and : Ibeth Sommers 1995 Date of Procedure: 10/20/25 Admission Attending: Juan Mayorga MD CLINICAL INFORMATION: EEG is requested in a 29 y.o. female to evaluate concern for seizures. SEIZURE MEDICATIONS: None listed RECORDING CONDITIONS: This is a natural sleep routine EEG performed at the inpatient bedside. The standard International 10-20 System of electrode placement was utilized, with a minimum of 20 electrodes and additional channels monitored for eye movement. One channel electrocardiogram was monitored. Data were obtained, stored, and interpreted according to ACNS guidelines (J Clin Neurophysiol 2006;23(2):85-183) utilizing referential montage recording, with reformatting to longitudinal, transverse bipolar, and referential montages as necessary for interpretation. The patient tolerated entire procedure without difficulty. Photic stimulation and hyperventilation were utilized as activation procedures unless otherwise specified below. FOR EEG LAB USE: Abnormal Non-epileptiform :qz!02; No events :qz!08; Complexity ratin :qz!15 [id number] Brief ictal rhythmic discharges (BIRDs) NO 0 Lateralized periodic discharges (LPDs) OR lateralized rhythmic delta activity (LRDA) OR bilateral independent periodic discharges NO 0 Prior seizure NO 0 Sporadic epileptiform discharges NO 0 Frequency greater than 2 Hz for any periodic or rhythmic pattern NO 0 Presence of PLUS features (superimposed, rhythmic, sharp, or faster activity) NO 0 [id number] TOTAL SCORE: 0 (5% SZ [!2H31P$2B&0]) E.E.G. DESCRIPTION: During periods of quiet wakefulness EEG background was disorganized and characterized by an admixture of alpha and theta range frequencies. Also prominent fast and sharp beta activity was seen throughout the recording. EEG background was continuous and symmetric bilaterally. No focal lateralized or frankly epileptiform features were seen. No electrographic seizures were recorded. Prominent bilateral muscle movement artifact was seen throughout the recording. Intermittent bilateral eye blink artifacts were recorded. Hyperventilation was not performed. Photic stimulation was not performed. Patient was described as lethargic. Patient was able to answer questions and to follow commands. E.E.G. INTERPRETATION: This is abnormal inpatient bedside routine EEG due to disorganized background and generalized slowing suggestive of mild to moderate diffuse encephalopathy. There was also excess of bilateral fast beta frequencies suggestive of drug effect. The electrographic pattern of encephalopathy is nonspecific for its etiology. No seizure discharges were recorded. Please note that this recording was somewhat technically limited due to at times prominent bilateral muscle and movement artifact that may have obscured underlying interictal abnormalities. Follow-up EEG suggested if clinically indicated. CLINICAL CORRELATION: No indicators of epilepsy or seizures were noted, however the absence of epileptiform abnormalities does not preclude a clinical diagnosis of seizures. Juan Dillon MD. [facility] us Jerry Lopez MD NEUROLOGY ORDERABLES Ko vijay Result - Final [id number] [id number], * (ABNORMAL) POCT Glucose, Fingerstick (10/20/2025 4:59 PM EST) POC Glucose 149(H) 65 - 99 mg/dL 10/20/2025 5:03 PM EST Blood specimen / Unknown 10/20/2025 4:59 PM EST 10/20/2025 5:03 PM EST Jose Trejo MD POINT OF CARE TEST ORDERABLES Fi nal Result HOSPITAL LAB See Below * US Abdomen-Limited (10/20/2025 4:15 PM EST) Anatomical Region Laterality Modality Abdomen Ultrasound 10/20/2025 3:30 PM EST Impressions 10/21/2025 11:00 AM EST 1. Cholelithiasis and biliary sludge with mild gallbladder wall thickening. No additional secondary signs of acute cholecystitis. 2. 4.5 cm echogenic mass in the right hepatic lobe which is incompletely characterized. Further evaluation with MRI abdomen liver protocol is recommended for definitive characterization. Narrative 10/21/2025 11:00 AM EST EXAMINATION: US ABDOMEN LIMITED (RIGHT UPPER QUADRANT) CLINICAL INFORMATION: Concern for cholecystitis on outpatient ultrasound. Assess for cholecystitis. COMPARISON: Ultrasound right upper quadrant 10/19/2025. TECHNIQUE: Real-time imaging of the right upper quadrant abdominal viscera. FINDINGS: LIVER: The liver demonstrates normal size, contour and echogenicity. There is an echogenic mass in the right hepatic lobe measuring 4.5 x 4.3 x 3.9 cm. No intrahepatic biliary duct dilatation. GALLBLADDER: The gallbladder is mildly distended with multiple stones and echogenic bile. Mild gallbladder wall thickening measuring 4 mm. No gallbladder wall edema. No pericholecystic fluid. Negative sonographic Alvarenga sign. COMMON BILE DUCT: Normal in caliber measuring 0.6 cm in diameter. PANCREAS: The tail is obscured by overlying bowel gas. The visualized portions appear unremarkable. RIGHT KIDNEY: No hydronephrosis. No renal calculi or focal parenchymal lesions. The kidney measures 11.2 cm in maximum dimension Procedure Note Bartolo Price MD - 10/21/2025 EXAMINATION: US ABDOMEN LIMITED (RIGHT UPPER QUADRANT) CLINICAL INFORMATION: Concern for cholecystitis on outpatient ultrasound. Assess for cholecystitis. COMPARISON: Ultrasound right upper quadrant 10/19/2025. TECHNIQUE: Real-time imaging of the right upper quadrant abdominal viscera. FINDINGS: LIVER: The liver demonstrates normal size, contour and echogenicity. There is an echogenic mass in the right hepatic lobe measuring 4.5 x 4.3 x 3.9 cm. No intrahepatic biliary duct dilatation. GALLBLADDER: The gallbladder is mildly distended with multiple stones and echogenic bile. Mild gallbladder wall thickening measuring 4 mm. No gallbladder wall edema. No pericholecystic fluid. Negative sonographic Alvarenga sign. COMMON BILE DUCT: Normal in caliber measuring 0.6 cm in diameter. PANCREAS: The tail is obscured by overlying bowel gas. The visualized portions appear unremarkable. RIGHT KIDNEY: No hydronephrosis. No renal calculi or focal parenchymal lesions. The kidney measures 11.2 cm in maximum dimension IMPRESSION: 1. Cholelithiasis and biliary sludge with mild gallbladder wall thickening. No additional secondary signs of acute cholecystitis. 2. 4.5 cm echogenic mass in the right hepatic lobe which is incompletely characterized. Further evaluation with MRI abdomen liver protocol is recommended for definitive characterization. Juan Mayorga MD [facility] [place] US ORDERABLES Final Result * (ABNORMAL) POCT Glucose, Fingerstick (10/20/2025 11:40 AM EST) POC Glucose 182(H) 65 - 99 mg/dL 10/20/2025 11:47 AM EST Blood specimen / Unknown 10/20/2025 11:40 AM EST 10/20/2025 11:47 AM EST Jose Trejo MD POINT OF CARE TEST ORDERABLES Fi nal Result HOSPITAL LAB See Below * (ABNORMAL) POCT Glucose, Fingerstick (10/20/2025 8:15 AM EST) POC Glucose 140(H) 65 - 99 mg/dL 10/20/2025 8:31 AM EST Blood specimen / Unknown 10/20/2025 8:15 AM EST 10/20/2025 8:31 AM EST Jose Trejo MD POINT OF CARE TEST ORDERABLES Fi nal Result HOSPITAL LAB See Below * Ammonia Level (10/20/2025 4:59 AM EST) Ammonia, Plasma 43 11 - 51 umol/L 10/20/2025 5:30 AM [facility] Blood Blood specimen / Unknown 10/20/2025 4:59 AM EST 10/20/2025 5:02 AM EST Jerry Lopez MD LAB BLOOD [place]AB[place] [address], [place] [address] * (ABNORMAL) Comprehensive Metabolic Panel (10/20/2025 4:59 AM EST) Glucose 140(H) 65 - 99 mg/dL 10/20/2025 5:42 AM [facility] Comment:Fasting: <100 mg/dL, Non-Fasting: <200 mg/dL (ADA 2004) Blood Urea Nitrogen (BUN) 7(L) 8 - 21 mg/dL 10/20/2025 5:42 AM [facility] Creatinine 0.44 0.40 - 1.10 mg/dL 10/20/2025 5:42 AM [facility] eGFR >90 >59 10/20/2025 5:42 AM [facility] Comment:CKD-EPI (2020) in mL /min/1.73 sq meters. Sodium 136 136 - 145 mmol/L 10/20/2025 5:42 AM [facility] Potassium 3.3(L) 3.4 - 5.3 mmol/L 10/20/2025 5:42 AM [facility] Chloride 102 98 - 107 mmol/L 10/20/2025 5:42 AM [facility] CO2 25 22 - 33 mmol/L 10/20/2025 5:42 AM [facility] Calcium 8.5(L) 8.7 - 10.5 mg/dL 10/20/2025 5:42 AM [facility] Alkaline Phosphatase 92 32 - 122 U/L 10/20/2025 5:42 AM [facility] Aspartate Aminotrans (AST) 39 10 - 50 U/L 10/20/2025 5:42 AM [facility] Alanine Aminotrans (ALT) 20 10 - 50 U/L 10/20/2025 5:42 AM [facility] Bilirubin, Total 0.4 0.2 - 1.0 mg/dL 10/20/2025 5:42 AM [facility] Protein, Total 5.8(L) 6.3 - 8.3 g/dL 10/20/2025 5:42 AM [facility] Albumin 3.3(L) 3.5 - 5.0 g/dL 10/20/2025 5:42 AM [facility] BUN/Creatinine Ratio 16 10.0 - 25.0 Ratio 10/20/2025 5:42 AM [facility] Globulin 2.5 1.5 - 3.9 g/dL 10/20/2025 5:42 AM [facility] Albumin/Globulin Ratio 1.3 1.0 - 3.0 Ratio 10/20/2025 5:42 AM [facility] Anion Gap 9 7 - 17 10/20/2025 5:42 AM [facility] Blood Blood specimen / Unknown 10/20/2025 4:59 AM EST 10/20/2025 5:19 AM EST us Juan Mayorga MD LAB BLOOD [place]AB[place] [address], [place] [address] * (ABNORMAL) Complete Blood Count, with Differential (10/20/2025 4:59 AM EST) White Blood Cell Count 5.6 4.0 - 11.0 Thou/uL 10/20/2025 5:26 AM [facility] Platelet Count 170 150 - 450 Thou/uL 10/20/2025 5:26 AM [facility] Hemoglobin 11.4(L) 11.7 - 15.7 g/dL 10/20/2025 5:26 AM [facility] Hematocrit 33.3(L) 35.0 - 47.0 % 10/20/2025 5: AM [facility] Red Blood Cell Count 3.83(L) 4.00 - 5.40 Mil/uL 10/20/2025 5: AM [facility] MCV 87 80 - 100 fL 10/20/2025 5: AM [facility] MCH 29.8 26.0 - 34.0 pg 10/20/2025 5: AM [facility] MCHC 34.2 30.0 - 36.0 g/dL 10/20/2025 5: AM [facility] RDW 11.9 11.5 - 14.5 % 10/20/2025 5: AM [facility] MPV 9.4 7.5 - 12.5 fL 10/20/2025 5: AM [facility] Neutrophils Auto 41.7 % 10/20/20 5: AM [facility] Immature Granulocytes 0.2 % 10/20/2025 5: AM [facility] Lymphocytes Auto 49.7 % 10/20/20 5: AM [facility] Monocytes Auto 5.0 % 10/20/2025 5: AM [facility] Eosinophils Auto 3.0 % 10/20/20 5: AM [facility] Basophils Auto 0.4 % 10/20/2025 5: AM [facility] Abs Neutrophils Auto 2.35 2.00 - 7.50 Thou/uL 10/20/2025 5: AM [facility] Abs Immature Granulocytes 0.01 0.00 - 0.10 Thou/uL 10/20/2025 5: AM [facility] Abs Lymphocytes Auto 2.80 1.50 - 4.50 Thou/uL 10/20/2025 5: AM [facility] Abs Monocytes Auto 0.28 0.20 - 1.50 Thou/uL 10/20/2025 5: AM [facility] Abs Eosinophils Auto 0.17 0.00 - 0.70 Thou/uL 10/20/2025 5: AM [facility] Abs Basophils Auto 0.02 0.00 - 0.20 Thou/uL 10/20/2025 5: AM [facility] Blood Blood specimen / Unknown 10/20/2025 4:59 AM EST 10/20/2025 5:19 AM EST Juan Mayorga MD LAB BLOOD ORDERABLES Final Res ult Performing Organization Address [facility] Co de Phone Number [address] [address], [address] [address] * (ABNORMAL) POCT Glucose, Fingerstick (10/20/2025 4:32 AM EST) POC Glucose 137(H) 65 - 99 mg/dL 10/20/2025 7:45 AM EST Blood specimen / Unknown 10/20/2025 4:32 AM EST 10/20/2025 7:45 AM EST us Jose Trejo MD POINT OF CARE TEST ORDERABLES Fi nal Result Performing Organization Address [facility] Co de Phone Number [facility] See Below * (ABNORMAL) POCT Glucose, Fingerstick (10/20/2025 2:02 AM EST) POC Glucose 180(H) 65 - 99 mg/dL 10/20/2025 2:03 AM EST Blood specimen / Unknown 10/20/2025 2:02 AM EST 10/20/2025 2:03 AM EST us Jose Trejo MD POINT OF CARE TEST ORDERABLES Fi nal Result Performing Organization Address [facility] Co de Phone Number [facility] See Below * (ABNORMAL) BETA-HCG, QUANTITATIVE (10/20/2025 1:00 AM EST) Beta-hCG, Quantitative 155(H) <5 mIU/mL 10/20/2025 4:[address] [facility] 10/20/2025 1:00 AM EST 10/20/2025 1:47 AM EST Juan Mayorga MD LAB BLOOD ORDERABLES Final Res ult Performing Organization Address [facility] [place] [address], [place] [address] * (ABNORMAL) Beta-hCG, Qualitative, Reflex Quant (10/20/2025 1:00 AM EST) Beta-hCG, Qualitative Positive( A) Negative 10/20/2025 2:18 AM [facility] 10/20/2025 1:00 AM EST 10/20/2025 1:47 AM EST us Juan Mayorga MD LAB BLOOD ORDERABLES Final Res ult Performing Organization Address [facility] [place] [address], [place] [address] * (ABNORMAL) LIPASE (10/20/2025 1:00 AM EST) Lipase 8(L) 13 - 60 U/L 10/20/2025 2:18 AM [facility] 10/20/2025 1:00 AM EST 10/20/2025 1:47 AM EST us Juan Mayorga MD LAB BLOOD ORDERABLES Final Res ult Performing Organization Address [facility] [place] [address], [place] [address] * B-Hydroxybutyrate (10/20/2025 1:00 AM EST) B-Hydroxybutyrate 0.06 <0.28 mmol/L 10/20/2025 2:18 AM [facility] Comment: In the presence of uncontrolled diabetes, serum beta-hydroxybutyrate levels greater than or equal to 3.80 mmol/L (patients age 16 and over) or greater than or equal to 3.00 mmol/L (patients under age 16) support a clinical diagnosis of Diabetic Ketoacidosis (DKA) - Ref: Diabetes Care 31: 643 (2007). Blood Blood specimen / Unknown 10/20/2025 1:00 AM EST 10/20/2025 1:47 AM EST us Juan Mayorga MD LAB BLOOD ORDERABLES Final Res ult [address] [address], [address] [address] * (ABNORMAL) Comprehensive Metabolic Panel (10/20/2025 1:00 AM EST) Glucose 165(H) 65 - 99 mg/dL 10/20/2025 2:18 AM [facility] Comment:Fasting: <100 mg/dL, Non-Fasting: <200 mg/dL (ADA 2004) Blood Urea Nitrogen (BUN) 7(L) 8 - 21 mg/dL 10/20/2025 2:18 AM [facility] Creatinine 0.38(L) 0.40 - 1.10 mg/dL 10/20/2025 2:18 AM [facility] eGFR >90 >59 10/20/2025 2:18 AM [facility] Comment:CKD-EPI (2020) in mL /min/1.73 sq meters. Sodium 133(L) 136 - 145 mmol/L 10/20/2025 2:18 AM [facility] Potassium 3.2(L) 3.4 - 5.3 mmol/L 10/20/2025 2:18 AM [facility] Chloride 99 98 - 107 mmol/L 10/20/2025 2:18 AM [facility] CO2 25 22 - 33 mmol/L 10/20/2025 2:18 AM [facility] Calcium 8.6(L) 8.7 - 10.5 mg/dL 10/20/2025 2:18 AM [facility] Alkaline Phosphatase 97 32 - 122 U/L 10/20/2025 2:18 AM [facility] Aspartate Aminotrans (AST) 50 10 - 50 U/L 10/20/2025 2:18 AM [facility] Alanine Aminotrans (ALT) 23 10 - 50 U/L 10/20/2025 2:18 AM [facility] Bilirubin, Total 0.4 0.2 - 1.0 mg/dL 10/20/2025 2:18 AM [facility] Protein, Total 6.4 6.3 - 8.3 g/dL 10/20/2025 2:18 AM [facility] Albumin 3.6 3.5 - 5.0 g/dL 10/20/2025 2:18 AM [facility] BUN/Creatinine Ratio 18 10.0 - 25.0 Ratio 10/20/2025 2:18 AM [facility] Globulin 2.8 1.5 - 3.9 g/dL 10/20/2025 2:18 AM [facility] Albumin/Globulin Ratio 1.3 1.0 - 3.0 Ratio 10/20/2025 2:18 AM [facility] Anion Gap 9 7 - 17 10/20/2025 2:18 AM [facility] Blood Blood specimen / Unknown 10/20/2025 1:00 AM EST 10/20/2025 1:47 AM EST Juan Mayorga MD LAB BLOOD ORDERABLES Final Res ult Performing Organization Address City/State/[facility] [place] [address], [place] [address] * (ABNORMAL) Complete Blood Count, with Differential (10/20/2025 1:00 AM EST) White Blood Cell Count 5.9 4.0 - 11.0 Thou/uL 10/20/2025 1:50 AM [facility] Platelet Count 156 150 - 450 Thou/uL 10/20/2025 1:50 AM [facility] Hemoglobin 11.0(L) 11.7 - 15.7 g/dL 10/20/2025 1:50 AM [facility] Hematocrit 32.4(L) 35.0 - 47.0 % 10/20/2025 1:50 AM [facility] Red Blood Cell Count 3.67(L) 4.00 - 5.40 Mil/uL 10/20/2025 1:50 AM [facility] MCV 88 80 - 100 fL 10/20/2025 1:50 AM [facility] MCH 30.0 26.0 - 34.0 pg 10/20/2025 1:50 AM [facility] MCHC 34.0 30.0 - 36.0 g/dL 10/20/2025 1:50 AM [facility] RDW 11.9 11.5 - 14.5 % 10/20/2025 1:50 AM [facility] MPV 9.5 7.5 - 12.5 fL 10/20/2025 1:50 AM [facility] Neutrophils Auto 54.6 % 10/20/20 1:50 AM [facility] Immature Granulocytes 0.2 % 10/20/2025 1:50 AM [facility] Lymphocytes Auto 36.5 % 10/20/20 1:50 AM [facility] Monocytes Auto 5.7 % 10/20/2025 1:50 AM [facility] Eosinophils Auto 2.5 % 10/20/20 1:50 AM [facility] Basophils Auto 0.5 % 10/20/2025 1:50 AM [facility] Abs Neutrophils Auto 3.24 2.00 - 7.50 Thou/uL 10/20/2025 1:50 AM [facility] Abs Immature Granulocytes 0.01 0.00 - 0.10 Thou/uL 10/20/2025 1:50 AM [facility] Abs Lymphocytes Auto 2.17 1.50 - 4.50 Thou/uL 10/20/2025 1:50 AM [facility] Abs Monocytes Auto 0.34 0.20 - 1.50 Thou/uL 10/20/2025 1:50 AM [facility] Abs Eosinophils Auto 0.15 0.00 - 0.70 Thou/uL 10/20/2025 1:50 AM [facility] Abs Basophils Auto 0.03 0.00 - 0.20 Thou/uL 10/20/2025 1:50 AM [facility] Blood Blood specimen / Unknown 10/20/2025 1:00 AM [facility] 10/20/2025 1:47 AM [facility] us Juan Mayorga MD LAB BLOOD ORDERABLES Final Res ult Performing Organization Address City/State/[facility] [place] [address], [address] [address] * (ABNORMAL) POCT Glucose, Fingerstick (10/20/2025 12:44 AM EST) POC Glucose 166(H) 65 - 99 mg/dL 10/20/2025 12:49 AM EST Blood specimen / Unknown 10/20/2025 12:44 AM EST 10/20/2025 12:48 AM EST us Jose Trejo MD POINT OF CARE TEST ORDERABLES Fi nal Result [facility] See Below * (ABNORMAL) POCT Glucose, Fingerstick (10/19/2025 9:25 PM EST) POC Glucose 155(H) 65 - 99 mg/dL 10/19/2025 9:34 PM EST Blood specimen / Unknown 10/19/2025 9:25 PM EST 10/19/2025 9:34 PM EST us Jose Trejo MD POINT OF CARE TEST ORDERABLES Fi nal Result Performing Organization Address [facility] Co mn Phone Number [facility] See Below documented in this encounter Visit Diagnoses Diagnosis Alcohol withdrawal with complication with inpatient treatment (HCC)- Primary Other ectopic without intrauterine Abdominal pain of multiple sites Other ectopic without intrauterine Bipolar disorder (HCC) Bipolar disorder, unspecified PTSD (post-traumatic stress disorder) Posttraumatic stress disorder Liver mass Unspecified disorder of liver documented in this encounter Admitting Diagnoses Diagnosis Alcohol withdrawal with complication with inpatient treatment (HCC) documented in this encounter Administered Medications Inactive Administered Medications - up to 1 most recent administrations Medication Order MAR Action Action Date Dose Rate Site lactated ringers (LR) infusion 150 mL/hr, Intravenous, Continuous, Starting on 10/19/25 at 2130 Rate/Dose Change 10/21/2025 3:39 PM EST 1400 mL/hr sodium chloride 0.9 % (NS) bolus 500 mL, Intravenous, Administer over 1 Hours, Once, On Angie 10/20/25 at 2130, For 1 dose New Bag 10/20/2025 10:11 PM EST 500 mL 500 mL/hr acetaminophen (TYLENOL) tablet 975 mg 975 mg, Oral, Every 6 hours PRN, mild pain 1-3, fever greater than 101.5, Starting on Fri10/19/25 at 2057, May use for pain when patient is tolerating PO acetaminophen (TYLENOL) tablet 975 mg 975 mg, Oral, Every 6 hours scheduled, First dose on Fri10/21/25 at 1800 Given 10/22/2025 11:54 AM EST 975 mg bisacodyl (DULCOLAX) suppository 10 mg 10 mg, Rectal, Daily PRN, constipation, if no bowel movement by day 2, Starting on Fri10/19/25 at 2057 cloNIDine (CATAPRES) tablet 0.1 mg 0.1 mg, Oral, 3 times daily, First dose on Fri10/19/25 at 2200, Hold for SBP less than 100 mmHg. Notify provider if a dose is held. Given 10/22/2025 8:19 AM EST 0.1 mg diazepam (VALIUM) injection 10 mg 10 mg, Intravenous, Every 6 hours scheduled, First dose on Fri10/20/25 at 0000, For 4 doses, IV diazepam taper - 10mg every 6 hours for 4 doses followed by 5mg every 6 hours for 8 doses For IV Push: administer UNDILUTED at a rate of less than or equal to 5 mg/minute. Given 10/20/2025 12:50 AM EST 10 mg folic acid (FOLVITE) tablet 1 mg 1 mg, Oral, Daily, First dose on Fri10/20/25 at 0900 Given 10/22/2025 8:19 AM EST 1 mg gabapentin (NEURONTIN) tablet 800 mg 800 mg, Oral, 3 times daily, First dose on Fri10/19/25 at 2200 Given 10/22/2025 8:19 AM EST 800 mg haloperidol lactate (HALDOL) 5 mg/mL injection 2 mg 2 mg, Intravenous, Every 4 hours PRN, agitation, Starting on Fri10/19/25 at 210, If ordered IV Push: administer undiluted at a maximum rate of 5 mg/minute. Given 10/21/2025 1:37 PM EST 2 mg HYDROmorphone (DILAUDID) injection 0.5 mg 0.5 mg, Intravenous, Every 6 hours PRN, severe to excruciating pain 7-10, Starting on Fri10/21/25 at 0720, For 7 days, For IV Push, administer over 2 to 3 minutes. Given 10/21/2025 7:51 AM EST 0.5 mg HYDROmorphone (DILAUDID) injection 0.5 mg 0.5 mg, Intravenous, Every 6 hours PRN, moderate to moderately severe pain 4-6, Starting on Fri10/21/25 at 1316, For 7 days, For IV Push, administer over 2 to 3 minutes. Given 10/22/2025 2:52 AM EST 0.5 mg HYDROmorphone (DILAUDID) injection 0.8 mg 0.8 mg, Subcutaneous, Every 6 hours PRN, moderate to moderately severe pain 4-6, severe to excruciating pain 7-10, Starting on Fri10/20/25 at 1648, For 1 day, Patient is judged to be a standard adult Use ONLY if patient cannot tolerate PO For IV Push, administer over 2 to 3 minutes. Given 10/20/2025 11:20 PM EST 0.8 mg Right Arm HYDROmorphone (DILAUDID) injection 1 mg 1 mg, Intravenous, Every 3 hours PRN, severe to excruciating pain 7-10, Starting on Fri10/19/25 at 2058, For 7 days, Patient is judged to be a standard adult Use ONLY if patient cannot tolerate PO For IV Push, administer over 2 to 3 minutes., On hold since Fri10/20/2025 at 1322 until manually unheld Given 10/20/2025 10:49 AM EST 1 mg HYDROmorphone (DILAUDID) injection 1 mg 1 mg, Intravenous, Once, On Fri10/21/25 at 1000, For 1 dose, For IV Push, administer over 2 to 3 minutes. Given 10/21/2025 10:17 AM EST 1 mg HYDROmorphone (DILAUDID) injection 1 mg 1 mg, Intravenous, Every 4 hours PRN, severe to excruciating pain 7-10, Starting on Fri10/21/25 at 1312, For 7 days, For IV Push, administer over 2 to 3 minutes. Given 10/22/2025 12:22 PM EST 1 mg insulin lispro (HumaLOG/ADMELOG) 100 units/mL injection 1-4 Units 1-4 Units, Subcutaneous, Nightly and 0200, First dose on Fri10/22/25 at 0200, DO NOT HOLD IF NPO Notify provider if Blood Glucose LESS than 70 For BG 201-250 administer 1 unit For BG 251-300 administer 2 units For BG 301-350 administer 3 units For BG MORE than 350, administer 4 units AND notify provider Given 10/22/2025 2:27 AM EST 3 Units Left Arm insulin lispro (HumaLOG/ADMELOG) 100 units/mL injection 1-5 Units 1-5 Units, Subcutaneous, Every 4 hours scheduled, First dose on Fri10/19/25 at 2130, DO NOT HOLD IF NPO Notify provider if Blood Glucose LESS than 70 For BG 141-190 administer 1 unit For BG 191-240 administer 2 units For BG 241-290 administer 3 units For BG 291-340 administer 4 units For BG MORE than 340, administer 5 units AND notify provider Given 10/22/2025 12:34 AM EST 3 Units Right Arm insulin lispro (HumaLOG/ADMELOG) 100 units/mL injection 1-6 Units 1-6 Units, Subcutaneous, 3 times daily with meals, First dose on Fri10/22/25 at 0800, DO NOT HOLD IF NPO Notify provider if Blood Glucose LESS than 70 For BG 141-180 administer 1 unit For BG 181-220 administer 2 units For BG 221-260 administer 3 units For BG 261-300 administer 4 units For BG 301-340 administer 5 units For BG MORE than 340, administer 6 units AND notify provider Given 10/22/2025 11:55 AM EST 3 Units Abdominal Tissue insulin lispro (HumaLOG/ADMELOG) 100 units/mL injection 5 Units 5 Units, Subcutaneous, Once, On Fri10/21/25 at 1600, For 1 dose, PACU (only) Given 10/21/2025 4:00 PM EST 5 Units Abdominal Tissue lactulose (ENULOSE) 10 gm/15 mL solution 20 g 20 g (30 mL), Oral, Every 4 hours PRN, constipation, if no bowel movement by day 3, Starting on Fri10/19/25 at 2058, Administer until bowel movement lidocaine (LIDODERM) 5 % patch 1 patch 1 patch, Transdermal, Daily, First dose on Fri10/22/25 at 0930, If ordered, up to 3 patches may be applied in a single instance. Patch(es) may remain in place for up to 12 hours in any 24-hour period., Patch Site #1: abdomen (avoid incisions) Patch Applied 10/22/2025 11:17 AM EST 1 patch Back multivitamin with minerals tablet 1 tablet 1 tablet, Oral, Daily, First dose on Angie 10/20/25 at 0900 Given 10/22/2025 8:19 AM EST 1 tablet naloxone (NARCAN) 0.4 mg/mL injection 0.2 mg 0.2 mg, Intravenous, Once, On Angie 10/20/25 at 0130, For 1 dose Given 10/20/2025 1:29 AM EST 0.2 mg naloxone (NARCAN) 0.4 mg/mL injection 0.4 mg 0.4 mg, Intravenous, Every 5 min PRN, opioid reversal, respiratory depression, Starting on Fri10/19/25 at 2058, If respiratory rate is less than 8 breaths/minute or patient is difficult to arouse. Stop all narcotics and contact provider. OXcarbazepine (TRILEPTAL) tablet 600 mg 600 mg, Oral, 2 times daily, First dose on Fri10/19/25 at 2130, Hazardous Level Medium A See Hazardous Medication Policy & Procedures for more information. Given 10/22/2025 8:19 AM EST 600 mg polyethylene glycol (miraLAx) packet 17 g 17 g, Oral, Daily, First dose on Fri10/21/25 at 1730, Stir and dissolve in 4-8 oz of fluids. Given 10/22/2025 8:20 AM EST 17 g risperiDONE (RisperDAL) tablet 1 mg 1 mg, Oral, 2 times daily, First dose on Fri10/19/25 at 2130 Given 10/22/2025 8:19 AM EST 1 mg senna-docusate (SENNA-S) 8.6-50 MG tablet 2 tablet 2 tablet, Oral, Nightly, First dose on Fri10/19/25 at 2100, Hold for diarrhea Given 10/19/2025 10:04 PM EST 2 tablets sucralfate (CARAFATE) 1 GM/10ML SUSPENSION 1 g 1 g, Oral, 4 times daily before meals and nightly, First dose on Fri10/19/25 at 2130, Shake well. Administer with water on an empty stomach. Administer other drugs 2 hours prior to sucralfate. *Hold Gastric Delivered Enteral Nutrition at least 1 hour before and 2 hours after dose* Given 10/22/2025 11:54 AM EST 1 g thiamine mononitrate (VITAMIN B-1) tablet 200 mg 200 mg, Oral, Daily, First dose on Angie 10/20/25 at 0900 Given 10/22/2025 8:19 AM EST 200 mg traZODone (DESYREL) tablet 100 mg 100 mg, Oral, Nightly, First dose on Fri10/19/25 at 2130 Given 10/19/2025 10:57 PM EST 100 mg documented in this encounter Active and Recently Administered Medications Times are shown in EST. Scheduled Medication Order 10/20/2025 10/21/2025 10/22/2025 sodium chloride 0.9 % (NS) bolus (COMPLETED) 500 mL, Intravenous, Administer over 1 Hours, Once, On Angie 10/20/25 at 2130, For 1 dose 2211 (New Bag - Provider: Shira Church RN)2354 (Stopped - Provider: Shira Church RN - Comment: Not completed. Stopped due to pt refusal) acetaminophen (TYLENOL) tablet 975 mg 975 mg, Oral, Every 6 hours scheduled, First dose on Fri10/21/25 at 1800 1756 (Not Given - Provider: Shaina Barlow RN - Reason: Patient off floor for test/procedure)2307 (Not Given - Provider: Kayla Reinoso RN - Reason: Patient/family refused) 0501 (Not Given - Provider: Kayla Reinoso RN - Reason: Patient/family refused)1154 (Given - Provider: Roxy Aguirre RN) cloNIDine (CATAPRES) tablet 0.1 mg 0.1 mg, Oral, 3 times daily, First dose on Fri10/19/25 at 2200, Hold for SBP less than 100 mmHg. Notify provider if a dose is held. 0842 (Given - Provider: Shaina Barlow RN)1515 (Given - Provider: Shaina Barlow RN)2205 (Given - Provider: Shira Church RN) 0751 (Given - Provider: Shaina Barlow RN)1334 (Given - Provider: Shaina Barlow RN)2040 (Given - Provider: Kayla Reinoso RN) 0819 (Given - Provider: Roxy Aguirre, DILIP)1400 (Due) diazepam (VALIUM) injection 10 mg (CANCELED)(Linked Group 1) 10 mg, Intravenous, Every 6 hours scheduled, First dose on Fri10/20/25 at 0000, For 4 doses, IV diazepam taper - 10mg every 6 hours for 4 doses followed by 5mg every 6 hours for 8 doses For IV Push: administer UNDILUTED at a rate of less than or equal to 5 mg/minute. 0050 (Given - Provider: Shira Church RN) folic acid (FOLVITE) tablet 1 mg 1 mg, Oral, Daily, First dose on Fri10/20/25 at 0900 0843 (Given - Provider: Shaina Barlow RN) 0751 (Given - Provider: Shaina Barlow RN) 0819 (Given - Provider: Roxy Aguirre, DILIP) gabapentin (NEURONTIN) tablet 800 mg 800 mg, Oral, 3 times daily, First dose on Fri10/19/25 at 2200 0841 (Given - Provider: Shania Barlow RN)1515 (Given - Provider: Shaina Barlow RN)1648 (Provider Held - Provider: Angelia Zavala MD - Reason: Change in lab value)2200 (Hold - Provider: Shira Church RN - Reason: See Provider Order) 0800 (Hold - Provider: Shaina Barlow RN - Reason: See Provider Order)1400 (Hold - Provider: Shaina Barlow RN - Reason: See Provider Order)2200 (Dose Auto Held - Provider: Angelia Zavala MD) 0116 (Provider Unheld - Provider: Miranda Duarte MD)0819 (Given - Provider: Roxy Aguirre RN)1400 (Due) HYDROmorphone (DILAUDID) injection 1 mg (COMPLETED) 1 mg, Intravenous, Once, On Fri10/21/25 at 1000, For 1 dose, For IV Push, administer over 2 to 3 minutes. 1017 (Given - Provider: Shaina Barlow RN) ibuprofen (MOTRIN) tablet 800 mg 800 mg, Oral, Every 8 hours scheduled, First dose on Fri10/21/25 at 1730, Give with a snack 1755 (Not Given - Provider: Shaina Barlow RN - Reason: Patient off floor for test/procedure)2052 (Not Given - Provider: Kayla Reinoso RN - Reason: Patient/family refused) 0501 (Not Given - Provider: Kayla Reinoso RN - Reason: Patient/family refused)1400 (Due) insulin lispro (HumaLOG/ADMELOG) 100 units/mL injection 1-4 Units 1-4 Units, Subcutaneous, Nightly and 0200, First dose on Fri10/22/25 at 0200, DO NOT HOLD IF NPO Notify provider if Blood Glucose LESS than 70 For BG 201-250 administer 1 unit For BG 251-300 administer 2 units For BG 301-350 administer 3 units For BG MORE than 350, administer 4 units AND notify provider 0227 (Given - Provid er: Kayla Reinoso RN) insulin lispro (HumaLOG/ADMELOG) 100 units/mL injection 1-5 Units (CANCELED) 1-5 Units, Subcutaneous, Every 4 hours scheduled, First dose on Fri10/19/25 at 2130, DO NOT HOLD IF NPO Notify provider if Blood Glucose LESS than 70 For BG 141-190 administer 1 unit For BG 191-240 administer 2 units For BG 241-290 administer 3 units For BG 291-340 administer 4 units For BG MORE than 340, administer 5 units AND notify provider 0050 (Given - Provider: Shira Church RN)0400 (Due - Provider: Shira Church RN)0819 (Not Given - Provider: Shaina Barlow RN - Reason: Dose held per order parameters)1203 (Given - Provider: Shaina Barlow RN - Comment: no avail barcode)1706 (Given - Provider: Shaina Barlow RN - Comment: no available barcode)2204 (Given - Provider: Shira Church RN) 0103 (Given - Provider: Shira Church RN)0452 (Not Given - Provider: Shira Church RN - Reason: Dose held per order parameters)0820 (Given - Provider: Shaina Barlow RN)1216 (Given - Provider: Shaina Barlow RN)1618 (Not Given - Provider: Liyah Harrington RN - Reason: Other - Comment required)2037 (Given - Provider: Kayla Reinoso, DILIP) 003 (Given - Provider: Kayla Reinoso, RN) insulin lispro (HumaLOG/ADMELOG) 100 units/mL injection 1-6 Units 1-6 Units, Subcutaneous, 3 times daily with meals, First dose on 10/22/25 at 0800, DO NOT HOLD IF NPO Notify provider if Blood Glucose LESS than 70 For BG 141-180 administer 1 unit For BG 181-220 administer 2 units For BG 221-260 administer 3 units For BG 261-300 administer 4 units For BG 301-340 administer 5 units For BG MORE than 340, administer 6 units AND notify provider 0824 (Given - Provid er: Roxy Aguirre RN)1155 (Given - Provider: Roxy Aguirre RN) insulin lispro (HumaLOG/ADMELOG) 100 units/mL injection 5 Units (COMPLETED) 5 Units, Subcutaneous, Once, On Fri10/21/25 at 1600, For 1 dose, PACU (only) 1600 (Given - Provider: Liyah Harrington RN) lidocaine (LIDODERM) 5 % patch 1 patch 1 patch, Transdermal, Daily, First dose on 10/22/25 at 0930, If ordered, up to 3 patches may be applied in a single instance. Patch(es) may remain in place for up to 12 hours in any 24-hour period., Patch Site #1: abdomen (avoid incisions) 1117 (Patch Applied - Provider: Roxy Aguirre RN)1414 (Due: Patch Removed - Provider: Automatic Discharge Provider - Comment: Time automatically adjusted from order being discontinued) multivitamin with minerals tablet 1 tablet 1 tablet, Oral, Daily, First dose on Angie 10/20/25 at 0900 0843 (Given - Provider: Shaina Barlow RN) 0751 (Given - Provider: Shaina Barlow RN) 0819 (Given - Provider: Roxy Aguirre RN) naloxone (NARCAN) 0.4 mg/mL injection 0.2 mg (COMPLETED) 0.2 mg, Intravenous, Once, On Angie 10/20/25 at 0130, For 1 dose 0129 (Given - Provider: Kristin Galindo RN) OXcarbazepine (TRILEPTAL) tablet 600 mg 600 mg, Oral, 2 times daily, First dose on Fri10/19/25 at 2130, Hazardous Level Medium A See Hazardous Medication Policy & Procedures for more information. 0842 (Given - Provider: Shaina Barlow RN)1648 (Provider Held - Provider: Angelia Zavala MD - Reason: Change in lab value)2100 (Hold - Provider: Shira Chruch RN - Reason: See Provider Order) 0900 (Hold - Provider: Shaina Barlow RN - Reason: See Provider Order)2100 (Dose Auto Held - Provider: Angelia Zavala MD) 0117 (Provider Unheld - Provider: Miranda Duarte MD)0819 (Given - Provider: Roxy Aguirre, DILIP) polyethylene glycol (miraLAx) packet 17 g 17 g, Oral, Daily, First dose on Fri10/21/25 at 1730, Stir and dissolve in 4-8 oz of fluids. 1756 (Not Given - Provider: Shaina Barlow RN - Reason: Patient off floor for test/procedure) 0820 (Given - Provider: Roxy Aguirre, DILIP) risperiDONE (RisperDAL) tablet 1 mg 1 mg, Oral, 2 times daily, First dose on Fri10/19/25 at 2130 0843 (Given - Provider: Shaina Barlow RN)220 (Given - Provider: Shira Church RN) 075 (Given - Provider: Shaina Barlow RN)2050 (Not Given - Provider: Kayla Reinoso, DILIP - Reason: Patient/family refused) 0819 (Given - Provider: Roxy Aguirre, DILIP) senna-docusate (SENNA-S) 8.6-50 MG tablet 2 tablet 2 tablet, Oral, Nightly, First dose on Fri10/19/25 at 2100, Hold for diarrhea 2208 (Hold - Provider: Shira Churhc RN - Reason: Other- Comment on reason - Comment: warning) 2051 (Not Given - Provider: Kayla Reinoso RN - Reason: Patient/family refused) sucralfate (CARAFATE) 1 GM/10ML SUSPENSION 1 g 1 g, Oral, 4 times daily before meals and nightly, First dose on Fri10/19/25 at 2130, Shake well. Administer with water on an empty stomach. Administer other drugs 2 hours prior to sucralfate. *Hold Gastric Delivered Enteral Nutrition at least 1 hour before and 2 hours after dose* 0843 (Not Given - Provider: Shaina Barlow RN - Reason: Patient/family refused)1203 (Given - Provider: Shaina Barlow RN)1516 (Given - Provider: Shaina Barlow, DILIP)2204 (Given - Provider: Shira Church, RN) 0753 (Given - Provider: Shaina Barlow RN)1017 (Given - Provider: Shaina Barlow RN)1755 (Not Given - Provider: Shaina Barlow RN - Reason: Patient off floor for test/procedure)2051 (Not Given - Provider: Kayla Reinoso RN - Reason: Patient/family refused) 0820 (Given - Provider: Roxy Aguirre, DILIP)1154 (Given - Provider: Roxy Aguirre, RN) thiamine mononitrate (VITAMIN B-1) tablet 200 mg 200 mg, Oral, Daily, First dose on Angie 10/20/25 at 0900 0842 (Given - Provider: Shaina Barlow RN) 0750 (Given - Provider: Shaina Barlow RN) 0819 (Given - Provider: Roxy Aguirre, DILIP) traZODone (DESYREL) tablet 100 mg 100 mg, Oral, Nightly, First dose on Fri10/19/25 at 2130 1459 (Provider Held - Provider: Angelia Zavala MD - Reason: Other - Comment required)2100 (Hold - Provider: Shira Church RN - Reason: See Provider Order) 2100 (Dose Auto Held - Provider: Angelia Zavala MD) 0117 (Provider Unheld - Provider: Miranda Duarte MD) Continuous Medication Order 10/20/2025 10/21/2025 10/22/2025 lactated ringers (LR) infusion (CANCELED) 150 mL/hr, Intravenous, Continuous, Starting on Fri10/19/25 at 2130 1415 (Anesthesia Verify - Provider: Karine Meredith MD)1420 (Rate/Dose Change - Provider: Karine Meredith MD)1539 (Rate/Dose Change - Provider: Karine Meredith MD) 0119 (Stopped - Provider: Kayla Reinoso, RN) PRN Medication Order 10/20/2025 10/21/2025 10/22/2025 acetaminophen (TYLENOL) tablet 975 mg 975 mg, Oral, Every 6 hours PRN, mild pain 1-3, fever greater than 101.5, Starting on Fri10/19/25 at 2057, May use for pain when patient is tolerating PO 2032 (Not Given - Provider: Kayla Reinoso, DILIP - Reason: Patient/family refused) bisacodyl (DULCOLAX) suppository 10 mg 10 mg, Rectal, Daily PRN, constipation, if no bowel movement by day 2, Starting on Fri10/19/25 at 205 bupivacaine preservative free (MARCAINE) 0.5 % injection (CANCELED) Once PRN, Starting on Fri10/21/25 at 1525, Intra-op 1525 (Given - Provider: Khoa Parrish MD) haloperidol lactate (HALDOL) 5 mg/mL injection 2 mg 2 mg, Intravenous, Every 4 hours PRN, agitation, Starting on Fri10/19/25 at 2109, If ordered IV Push: administer undiluted at a maximum rate of 5 mg/minute. 1337 (Given - Provider: Shaina Barlow RN)2050 (Return to Cabinet - Provider: Kayla Reinoso, DILIP) HYDROmorphone (DILAUDID) injection 0.5 mg (CANCELED) 0.5 mg, Intravenous, Every 6 hours PRN, severe to excruciating pain 7-10, Starting on Fri10/21/25 at 0720, For 7 days, For IV Push, administer over 2 to 3 minutes. 0751 (Given - Provider: Shaina Barlow RN) HYDROmorphone (DILAUDID) injection 0.5 mg 0.5 mg, Intravenous, Every 6 hours PRN, moderate to moderately severe pain 4-6, Starting on Fri10/21/25 at 1316, For 7 days, For IV Push, administer over 2 to 3 minutes. 0252 (Given - Provider: Kayla Reinoso RN) HYDROmorphone (DILAUDID) injection 0.8 mg (CANCELED) 0.8 mg, Subcutaneous, Every 6 hours PRN, moderate to moderately severe pain 4-6, severe to excruciating pain 7-10, Starting on Fri10/20/25 at 1648, For 1 day, Patient is judged to be a standard adult Use ONLY if patient cannot tolerate PO For IV Push, administer over 2 to 3 minutes. 1741 (Given - Provider: Shaina Barlow RN)2320 (Given - Provider: Shira Church RN) HYDROmorphone (DILAUDID) injection 1 mg (CANCELED) 1 mg, Intravenous, Every 3 hours PRN, severe to excruciating pain 7-10, Starting on Fri10/19/25 at 2058, For 7 days, Patient is judged to be a standard adult Use ONLY if patient cannot tolerate PO For IV Push, administer over 2 to 3 minutes., On hold since Fri10/20/2025 at 1322 until manually unheld 0149 (Not Given - Provider: Shira Church RN - Reason: Change in order)1049 (Given - Provider: Shaina Barlow RN)1322 (Provider Held - Provider: Angelia Zavala MD - Reason: Change in lab value)1410 (Provider Unheld - Provider: Alexi aGleas, PharmD) HYDROmorphone (DILAUDID) injection 1 mg 1 mg, Intravenous, Every 4 hours PRN, severe to excruciating pain 7-10, Starting on Fri10/21/25 at 1312, For 7 days, For IV Push, administer over 2 to 3 minutes. 1333 (Given - Provider: Shaina Barlow RN)1817 (Given - Provider: Shaina Barlow RN)2130 (Given - Provider: Kayla Reinoso RN) 0034 (Given - Provider: Kayla Reinoso RN)0412 (Given - Provider: Kayla Reinoso RN)0815 (Given - Provider: Roxy Aguirre, RN)1222 (Given - Provider: Roxy Aguirre, RN) lactulose (ENULOSE) 10 gm/15 mL solution 20 g 20 g (30 mL), Oral, Every 4 hours PRN, constipation, if no bowel movement by day 3, Starting on Fri10/19/25 at 2058, Administer until bowel movement naloxone (NARCAN) 0.4 mg/mL injection 0.4 mg 0.4 mg, Intravenous, Every 5 min PRN, opioid reversal, respiratory depression, Starting on Fri10/19/25 at 2058, If respiratory rate is less than 8 breaths/minute or patient is difficult to arouse. Stop all narcotics and contact provider. naloxone (NARCAN) 0.4 mg/mL injection 0.4 mg 0.4 mg, Intravenous, Every 5 min PRN, opioid reversal, respiratory depression, Starting on Fri10/21/25 at 1724, If respiratory rate is less than 8 breaths/minute or patient is difficult to arouse. Stop all narcotics and contact provider. ondansetron (ZOFRAN) injection 4 mg 4 mg, Intravenous, Every 6 hours PRN, nausea, vomiting, Starting on Fri10/21/25 at 1724 senna-docusate (SENNA-S) 8.6-50 MG tablet 2 tablet 2 tablet, Oral, Nightly PRN, constipation, Starting on Fri10/21/25 at 1724 simethicone (MYLICON) chewable tablet 80 mg 80 mg, Oral, Every 6 hours PRN, flatulence, Starting on Fri10/21/25 at 1724 Linked Groups Order Group 1: diazepam (VALIUM) injection 10 mg (CANCELED)Jump to med 10 mg, Intravenous, Every 6 hours scheduled, First dose on Angie 10/20/25 at 0000, For 4 doses, IV diazepam taper - 10mg every 6 hours for 4 doses followed by 5mg every 6 hours for 8 doses For IV Push: administer UNDILUTED at a rate of less than or equal to 5 mg/minute. Followed by diazepam (VALIUM) injection 5 mg (CANCELED) 5 mg, Intravenous, Every 6 hours scheduled, First dose on Fri10/21/25 at 0000, For 8 doses, IV diazepam taper - 10mg every 6 hours for 4 doses followed by 5mg every 6 hours for 8 doses For IV Push: administer UNDILUTED at a rate of less than or equal to 5 mg/minute. documented in this encounter
--- OUTSIDE RECORDS SUMMARY | 2025-10-21 13:50 | XMS_ITS | Encounter Summary ---
Author Organization [facility] Address [address] [place] [address] Care Team Providers Care Chemical Engineering Technician Name Role Phone Unavailable Primary Care Provider Unavailabl e Encounter Details Date Type Department Care Team (Late st Contact Info) Description 10/21/2025 1:50 PM EST - 10/21/2025 4:12 PM EST Surgery [facility] Perioperative Surgical Services [address] [place] [address] Khoa Parrish MD [address], [place] [id number] LAPAROSCOPY DIAGNOSTIC, LEFT SALPINGECTOMY Social History Tobacco Use Types Packs/Day Years [...] any time in the past 12 m [facility], were you homeless or living in a alf (including now)? Patient declined 10/21/2025 [facility] Utilities Answer Date Recorded In the past 12 months has th e [employer], gas, oil, or water company threatened to [...] Sign Reading Time Taken Comments Blood Pressure 124/75 10/21/2025 4:00 PM EST Pulse 88 10/21/2025 4:00 PM EST Temperature 34.6 C (94.3 F) 10/21/2025 4:00 PM EST Respiratory Rate 11 10/21/2025 4:00 PM EST Oxygen Saturation 98% 10/21/2025 4:00 PM EST Inhaled Oxygen Concentration - - [...] 10/22/2025 12:05 PM EST Inpatient Discharge Summary [facility] Brief Overview Patient Demographics Name: Ibeth [...] provider at outside hospital contacted their on-call AUTO BUMPER MECHANIC services who recommended methotrexate therapy which is [...] to medicine for management of alcohol withdrawal. AUTO BUMPER MECHANIC was consultedfor concern for ectopic . On [...] ectopic . Patient was transferred to the DEVOPS ENGINEER service after stabilization of alcohol withdrawal. Medicine had no further concern for alcohol withdrawal. Patient was doing well inthe post- operative period and met milestones on POD #1, was discharged home. Patient will follow [facility]. Message was sent for coordination of appointment. Patient incidentally noted to have elevated fingersticks requiring sliding scale insulin, A1c found to be 9.5. Patient to follow up outpatient for management of new diagnosis of diabetes. Procedures: Surgical/Procedural Cases on this Admission Case IDs Date Procedure Surgeon Location Status [id number] 10/21/25 LAPAROSCOPY DIAGNOSTIC, LEFT SALPINGECTOMY Khoa Parrish [...] Grandparent): Juan Antonio Watt - Parent - [phone] Activity Restrictions: lifting restrictions 15 lbs Time [...] 12 hours per day. 30 patch 10/23/2025 multivitamin with minerals Tab tabletIndications: Other ectopic [...] home support/Caregiver/responsible person: self Follow-up provider appointment: Rodrick ROCK/W-10 Equipment Ordered and Given at Discharge: none [...] Leon MD - 10/22/2025 9:17 AM EST DEVOPS ENGINEER Progress Note - delayed charting due to [...] milestones Sign Kamla De Leon MD (She/her) AUTO BUMPER MECHANIC PGY-3 Pager: [phone] 10/22/2025 9:17 AM Subjective Pt reporting pain, [...] Chavez MD - 10/21/2025 7:51 PM EST DEVOPS ENGINEER Progress Note Assessment & Plan Assessment 29 [...] 7) ID: No signs of infection. 8) DEVOPS ENGINEER: Minimal vaginal bleeding. Follow up final pathology. 9) DVT prophylaxis: Ambulation, encourage SCDs 10) Full code Sign: Velma Chavez MD PGY-2 [facility] OBGYN residency Pager #[phone] Also available on Lenoir Text Subjective In to post-op round on [...] 61 Resp: (!) 22 (!) 22 18 Temp: 96.8 ??F (36 ??C) 97.8 ??F [...] of Discharge: 10/24/2025 {Click to update GRIS: [id number]} VTE Time Out IMPROVE SCORE: 0 (10/19/2025 [...] 150 mL/hr, Last Rate: 150 mL/hr (10/19/25 0980) Diagnostic studies: I have reviewed the labs and ordered new labs if needed. Recent Labs 10/20/25 01010/20/2545810/20/252224 WBC 5.9 5.6 5.7 HGB 11.0* 11.4* 11.7 HCT 32.4* 33.3* 35.0 PLT 156 170 181 Recent Labs 10/20/25 0100 10/20/2545810/20/25222410/21/25 0740 NA 133* 136 131* Add-on cannot [...] RN - 10/21/2025 2:36 PM EST 10/21/25 1434 General Information Admission Type inpatient Arrived From Non-Health Initial Information How to be Addressed Ibeth [...] were you homeless or living in a alf (including now)? Pt Declined Food Insecurity Within [...] In the past 12 months has the [employer], gas, oil, or water [employer] threatened to shut off services in your [...] Alcohol withdrawal with complication with inpatient treatment ([facility]) Assessment/Summary SW reviewed chart. SW met with pt and introduced self and role. Pt was difficult to redirect throughout the conversation and repetitively stated that she wants to go home. When asked what caused pt to be admitted to the hospital, pt responded, Alcohol. Pt reported that she resides with her father and her uncle in [facility]. 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 Pt reported that she [...] Dye MD - 10/21/2025 7:13 AM EST DEVOPS ENGINEER AM Progress Note Assessment & Plan Assessment [...] and pain - Recommend TVUS this morning. DEVOPS ENGINEER will perform appropriate counseling for management, medication [...] regarding medication or imagingsafety Patrick Dye MD [facility] Obstetric[facility] Gyne[facility], PGY2 TT Gynecology for [...] Intake/Output Summary (Last 24 hours) at 10/21/2025 0713 Last data filed at 10/20/2025 2157 Gross per 24 hour Intake 70 ml [...] 1:29 PM EST Associated attestation - Khoa Parirsh MD - 10/21/2025 1:29 PM EST Teaching [...] of of unknown location. Beta-hCG during hospitalization[facility] has been 155 > 159 24 [...] MD [facility] Available on NOSTROMO ICT 10/21/25 1:24 PM * Angelia Zavala MD [...] Valium and Benadryl - Of note overnight PHOTOGRAMMETRIC ENGINEER was called due to lethargy after IV diazepam was administered and patient ended up receiving Narcan and woke up - Appreciate addiction medicine recommendation - Will start patient on oral as needed as needed diazepam alcohol withdrawal CIAR protocol - Will continue telemetry monitoring -will [...] of Discharge: 10/24/2025 {Click to update GRIS: [id number]} VTE Time Out IMPROVE SCORE: 0 (10/19/2025 [...] 150 mL/hr, Last Rate: 150 mL/hr (10/19/25 6290) Diagnostic studies: I have reviewed the labs and ordered new labs if needed. Recent Labs 10/20/25 0100 10/20/25 0459 WBC 5.9 5.6 HGB 11.0* 11.4* HCT 32.4* 33.3* PLT 156 170 Recent Labs 10/20/25 0100 10/20/25 0459 NA 133* 136 K 3.2* 3.3* CO2 25 25 CL 99 102 BUN 7* 7* CREAT [...] Dye MD - 10/20/2025 7:11 AM EST DEVOPS ENGINEER AM Progress Note Assessment & Plan Assessment [...] Plan - Recommend formal TVUS for evaluation. DEVOPS ENGINEER will perform appropriate counseling for management, medication [...] regarding medication or imagingsafety Patrick Dye MD [facility], PGY2 TT Gynecology for [...] Chavez MD - 10/20/2025 1:18 AM EST DEVOPS ENGINEER Consult Note Date of Consult: 10/20/2025 Service Requesting Consult: Internal Medicine Reason for Consultation: of unknown location Assessment & Plan Assessment: 29 y.o. with history of alcohol-induced pancreatitis, polysubstance use disorder, bipolar disorder, PTSD who presented to outside hospital with severe abdominal pain, nausea and vomiting and transferred to for direct admission under Internal Medicine for further management. AUTO BUMPER MECHANIC team consulted for concern of ectopic given [...] Dr. Duarte, PGY-4 Velma Chavez MD PGY-2 [facility] OBGYN residency Pager #[phone] Also available on Lenoir Text Subjective Chief Concern I have abdominal [...] provider at outside hospital contacted their on-call AUTO BUMPER MECHANIC services who recommended methotrexate therapy which is [...] Lv 2 Term EMIGDIO 1 Term EMIGDIO Skin Tanner History OB provider: None Regular periods lasting [...] and BHB as BSG was reportedly in [id number] w/ a HAGMA at OSH. Need to [...] ROUTINE INPATIENT ADULT ELECTROENCEPHALOGRAM (EEG) REPORT Facility: [facility] Patient and : Ibeth Sommers 1995 Date [...] :qz!02; No events :qz!08; Complexity ratin :qz!15 [id number] Brief ictal rhythmic discharges (BIRDs) NO 0 Lateralized periodic discharges (LPDs) OR lateralized rhythmic delta activity (LRDA) OR bilateral independent periodic discharges NO 0 Prior seizure NO 0 Sporadic epileptiform discharges NO 0 Frequency greater than 2 Hz for any periodic or rhythmic pattern NO 0 Presence of PLUS features (superimposed, rhythmic, sharp, or faster activity) NO 0 [id number] TOTAL SCORE: 0 (5% SZ [!2H31P$2B&0]) E.E.G. [...] clinical diagnosis of seizures. Juan Dillon MD. [facility] documented in this encounter Consult Notes * Donna Graff, TILE MOLDER HAND - 10/20/2025 3:10 PM ESTAssociated Order(s): IP CONSULT TO SOCIAL WORK; IP CONSULT TO SOCIAL WORK; IP CONSULT TO SOCIAL WORK Images from the original note were not included. Health Social Work Brief Note Date: 10/20/2025 Contact Reason: Substance Use Previous Social Work Encounters: None Ibeth Sommers is a 29 y.o. female currently admitted for: Alcohol withdrawal with complication with inpatient treatment ([facility]) Assessment/Summary SW reviewed chart. SW consulted 3x [...] and pt responded that she resides in [place] with her friend and cousin, although unreliable as she was falling asleep while answering. SW offeredto meet with pt tomorrow instead, which pt was agreeable to. Recommendations/Plan SW will continue to remain available as needed along continuum of care Sign: Donna Graff LCSW * Velma Chavez MD - 10/20/2025 1:18 AM EST DEVOPS ENGINEER Consult Note Date of Consult: 10/20/2025 Service Requesting Consult: Internal Medicine Reason for Consultation: of unknown location Assessment & Plan Assessment: 29 y.o. with history of alcohol-induced pancreatitis, polysubstance use disorder, bipolar disorder, PTSD who presented to outside hospital with severe abdominal pain, nausea and vomiting and transferred to for direct admission under Internal Medicine for further management. AUTO BUMPER MECHANIC team consulted for concern of ectopic given [...] Dr. Duarte, PGY-4 Velma Chavez MD PGY-2 [facility] OBGYN residency Pager #[phone] Also available on Lenoir Text Subjective Chief Concern I have abdominal [...] provider at outside hospital contacted their on-call AUTO BUMPER MECHANIC services who recommended methotrexate therapy which is [...] Lv 2 Term EMIGDIO 1 Term EMIGDIO Skin Tanner History OB provider: None Regular periods lasting [...] Progress: improving Outcome Evaluation: Patient discharged from [place] [address] in stable condition. AVS signed, discharge insructions given. Roxy Aguirre 10/22/2025 1:29 PM * Plan of Care - Kayla Reinoso RN - 10/22/2025 1:22 AM EST Problem: Adult Inpatient Plan of Care Goal: Plan of Care Review 10/22/2025121 by Kayla Reinoso RN Outcome: Progressing Flowsheets [...] Care Review Outcome: Progressing Flowsheets (Taken 10/22/2025 0021) Plan of Care Reviewed With: patient Progress: [...] to medicine for management of alcohol withdrawal. AUTO BUMPER MECHANIC was consultedfor concern for ectopic . On [...] ectopic . Patient was transferred to the DEVOPS ENGINEER service after stabilization of alcohol withdrawal. Medicine had no further concern for alcohol withdrawal. Patient was doing well inthe post- operative period and met milestones on POD #1, was discharged home. Patient will follow [facility]. Message was sent for coordination of appointment. [...] Angelia Zavala MD - 10/21/2025 6:09 PM EST Associated Problem(s): Bipolar disorder (HCC) -Patient is not [...] from the original note were not included. [address] [address] DEVOPS ENGINEER OPERATIVE REPORT Patient Name: Ibeth Sommers Date [...] Tests Collected by Time Destination A : 651793-C Tissue Fallopian Tube, left PATHOLOGY REPORT Khoa [...] MD [facility] Available on NOSTROMO ICT 10/21/25 3:35 PM * Plan of Care [...] PM * Plan of Care - Nancy Amaya RN - 10/21/2025 2:36 PM EST Initial [...] not use any DME. Reports she has datatracker for insurance but does not have insurance cards onher at this time. Anticipated transition plan: home routine Caregiver/responsible person supports: self, dad PCP: Confirmed - Patient does not have a PCP, declined assistance at this time Anticipated transportation: lounge - taxi Referrals made: None Barriers to discharge: Neuro, DEVOPS ENGINEER, addiction med Expected Date of Discharge 10/24/2025 [...] to the ED to detox. Objective Vitals: 10/19/25205010/20/25 0100 10/20/25 0400 10/20/25 0453 BP: (!) 129/97 119/83 105/64 Pulse: 60 (!) 54 78 Resp: 16 18 Temp: 98 ??F (36.7 ??C) (!) 46.4 ??F (8 ??C) 97 ??F (36.1 ??C) 97 ??F (36.1 ??C) SpO2: 98% 100% 98% 10/20/25 1400 10/20/25 2059 10/21/25 0050 10/21/25 0437 BP: 120/68 (!) 139/92 97/72 114/81 Pulse: 70 89 65 88 Resp: 18 18 Temp: 97 ??F (36.1 ??C) (!) 96.2 [...] abd/back pain. PRN pain med given per MAR with little effect. Pt stated she wanted to leave AMA. Provider notified and spoke with pt. Pt medicated per MAR.Safety maintained. Bed locked in lowest position. Plan of care ongoing. Shira Church 10/21/2025 8:39 AM * Plan of Care - Olga Velez APRN - 10/20/2025 11:41 PM EST Images from the original note were not included. [facility] MEDICINE CROSS COVERAGE NOTE Plan of Care RN asked that I come to bedside to discuss patients wishes to leave AMA Upon bedside evaluation, patient found walking in gonzalez with leads unhooked and swinging and patientwith wobbly gait. I was able to get her back to her room for discussion. When asked if she knew where she was she [facility] and when asked the year she told [...] able to talk itout and myself and CUSTOMS PATROL OFFICER got patient back to bed. Plan for [...] Progress: no change Outcome Evaluation: Assumed care [id number]. pt lethargic but arousable during shift. a/o [...] Valium and Benadryl - Of note overnight PHOTOGRAMMETRIC ENGINEER was called due to lethargy after IV [...] Valium and Benadryl - Of note overnight PHOTOGRAMMETRIC ENGINEER was called due to lethargy after IV [...] Valium and Benadryl - Of note overnight PHOTOGRAMMETRIC ENGINEER was called due to lethargy after IV [...] use * Assessment & Plan Note - Angleia Zavala MD - 10/20/2025 4:50 PM ESTAssociated [...] received a 260mg dose of phenobarbital at [id number] on 10/19. Also received IV valium and benadryl at OSH. Overnight, a PHOTOGRAMMETRIC ENGINEER was called due to acutelethargy following administration of IV diazepam 10mg. The fact that she was lethargic to the pointof PHOTOGRAMMETRIC ENGINEER being called after this dose of diazepam [...] diazepam in alcohol withdrawal order set in [facility] We will continue to follow Sign: [...] and BHB as BSG was reportedly in [id number] w/ a HAGMA at OSH. Need to [...] PRN pain med given with some effect. PHOTOGRAMMETRIC ENGINEER called around 0100 when pt became unresponsive [...] for review. She was transferred for possible DEVOPS ENGINEER evaluation for surgical intervention. I evaluated this [...] ruptured ectopic at this point. From a DEVOPS ENGINEER perspective, she still needs a beta-hCG and transvaginal ultrasound for full evaluation. DEVOPS ENGINEER will continue to follow along. Discussed with Dr. Roland. Signed Miranda Duarte MD [facility] OBGYN PGY-4 10/20/2025 2:04 AM (p) [phone] Cosigned by Shital Roland MD at 10/20/2025 [...] (Name and Title): Floor RN Patient Location: [place] [id number] Admit Date: 10/19/2025 8:01 PM Primary Team Attending: Juan Mayorga MD Service: Medicine General Response Type: Rapid Response (PHOTOGRAMMETRIC ENGINEER) Time PHOTOGRAMMETRIC ENGINEER response team arrived (HH:mm): 1:10 AM Time PHOTOGRAMMETRIC ENGINEER response team departed (HH:mm): 1:35 AM Situation/ Primary Reason for call [...] a left ectopic , transferred to for AUTO BUMPER MECHANIC evaluation. At 1:10 AM, PHOTOGRAMMETRIC ENGINEER was called for increasing lethargy, followed by unresponsiveness. A few minutes prior to the PHOTOGRAMMETRIC ENGINEER, patient had received 10 mg of IV [...] OSH Code Status prior to start of PHOTOGRAMMETRIC ENGINEER: full code Objective Vitals: 10/19/25 2051 10/20/25 [...] data reviewed Cardiac Rhythm/EKG Changes during the PHOTOGRAMMETRIC ENGINEER from baseline: No Results from last 7 [...] disorder) (POA: Unknown) Resolved Problems: Interventions during PHOTOGRAMMETRIC ENGINEER: EKG and Labs Medications during PHOTOGRAMMETRIC ENGINEER: Naloxone 0.2 mg x 1 Additional plan [...] improving mental status Patient Outcome After the PHOTOGRAMMETRIC ENGINEER the following was the outcome: Stabilized/Transfer Not Indicated Debriefing 1- Family member/healthcare proxy notified: [place]: 2- Debriefing completed with core team: Yes 3- Plan of Care reviewed: Yes Billing Not Applicable * Plan of Care - Cindy Alberts PA-C - 10/19/2025 6:31 PM EST PATIENT ACCEPTANCE NOTE SITUATION I was called by provider Dr. Brizuela from [facility] in regards to Ibeth Sommers to be transferred to the [facility]. Their phone number is [phone] in case more information is required. They are requesting the transfer to [facility] for procedural intervention and surgical consultant service which is not available in their facility. BACKGROUND Past Medical History: Ibeth Sommers has no past medical history on file. Past Surgical History: Ibeth Sommers has no past surgical history on file. Allergies: Ibeth Sommers has no allergies on file. Patient was seen in the Outside hospital/ clinic for ETOH withdrawal, subsequently found to have ectopic ASSESSMENT Patient is a 27 y/o female with PMHx significant for bipolar disorder, polysubstance use disorder, alcohol use disorder, and hx of pancreatitis who presented to [facility] with complaints of severe abdominal pain, nausea, and vomiting. Patient was recently treated for pancreatitis on previous admission in August 2025. Prior to obtaining CT A/P for further work up, a test was confirmed positive (HCG 274). Transvaginal ultrasound confirmed 4 week ectopic . OBGYN was consulted and recommended that the patient should be given methotrexate however this cannot be administered at OSH. DEVOPS ENGINEER was contacted for transfer to their service for further work up and management (methotrexatevs. Surgical OR), however patient is having active ETOH withdrawal and DEVOPS ENGINEER felt this patient would be better served on Medicine Service with DEVOPS ENGINEER consult. Notable Labs: Ethanol 333, LFT - within normal limits, however should be repeated prior to methotrexate administration (per DEVOPS ENGINEER) Patient CIWA have been 14, 4, 4, 13 at outside hospital. Patient was started on phenobarbital protocol at outside hospital (can receive another 240mg today per protocol). Patient hemodynamically stable and appropriate for floors at time of acceptance. Patient will require transfer to for higher level of care, DEVOPS ENGINEER consultation and possible intervention of ectopic and management by primary team of ETOH withdrawal. RECOMMENDATION Recommend calling the Consults: Elect Equip Maint Eng once the patient arrives. Patient requirements : [...] 11:39 AM EST 10/22/2025 11:40 AM EST us Jose Trejo MD POINT OF CARE TEST ORDERABLES Fi nal Result Performing Organization Address [facility] Co ks Phone Number HOSPITAL LAB See Below * (ABNORMAL) POCT Glucose, Fingerstick (10/22/2025 7:44 AM EST) POC Glucose 217(H) 65 - 99 mg/dL 10/22/2025 7:51 AM EST Blood specimen / Unknown 10/22/2025 7:44 AM EST 10/22/2025 7:51 AM EST us Jose Trejo MD POINT OF CARE TEST ORDERABLES Fi nal Result Performing Organization Address [facility] Co de Phone Number HOSPITAL LAB See Below * (ABNORMAL) COMPLETE BLOOD COUNT, WITHOUT DIFFERENTIAL (10/22/2025 7:17 AM EST) White Blood Cell Count 5.5 4.0 - 11.0 Thou/uL 10/22/2025 8:25 AM [facility] Platelet Count 136(L) 150 - 450 Thou/uL 10/22/2025 8:25 AM [facility] Hemoglobin 11.5(L) 11.7 - 15.7 g/dL 10/22/2025 8:25 AM [facility] Hematocrit 33.7(L) 35.0 - 47.0 % 10/22/2025 8:25 AM [facility] Red Blood Cell Count 3.77(L) 4.00 - 5.40 Mil/uL 10/22/2025 8:25 AM [facility] MCV 89 80 - 100 fL 10/22/2025 8:25 AM [facility] MCH 30.5 26.0 - 34.0 pg 10/22/2025 8:25 AM [facility] MCHC 34.1 30.0 - 36.0 g/dL 10/22/2025 8:25 AM [facility] RDW 11.9 11.5 - 14.5 % 10/22/2025 8:25 AM [facility] MPV 10.7 7.5 - 12.5 fL 10/22/2025 8:25 AM [facility] Blood Blood specimen / Unknown 10/22/2025 7:17 AM EST 10/22/2025 7:27 AM EST Khoa Parrish MD LAB BLOOD [place] [address], [place] [address] * (ABNORMAL) Hemoglobin A1c with Estimated Average Glucose (AM) (10/22/2025 7:17 AM EST) Hemoglobin A1C 9.5(H) <5.7 % 10/22/2025 9:07 AM [facility] Comment: A1c% Interpretation 5.7 - 6.0 Increase risk of diabetes 6.1 - 6.4 Higher risk of diabetes > or = 6.5 Consistent with diabetes Diabetes Care, 33(Supp 1):S1-S61, 2009 Estimated Average Glucose 226 mg/dL 10/22/2025 9:07 AM EST [facility] Blood Blood specimen / Unknown 10/22/2025 7:17 AM EST 10/22/2025 7:27 AM EST us Khoa Parrish MD LAB BLOOD ORDERABLES Final Resul t Performing Organization Address [facility] [place] [address], [address] [address] * (ABNORMAL) POCT Glucose, Fingerstick (10/22/2025 2:17 AM EST) POC Glucose 305(H) 65 - 99 mg/dL 10/22/2025 2:18 AM EST Blood specimen / Unknown 10/22/2025 2:17 AM EST 10/22/2025 2:18 AM EST us Jose Trejo MD POINT OF CARE TEST ORDERABLES Fi nal Result Performing Organization Address [facility] Co de Phone Number [facility] LAB See Below * (ABNORMAL) POCT Glucose, Fingerstick (10/22/2025 12:20 AM EST) POC Glucose 263(H) 65 - 99 mg/dL 10/22/2025 12:21 AM EST Blood specimen / Unknown 10/22/2025 12:20 AM EST 10/22/2025 12:21 AM EST us Jose Trejo MD POINT OF CARE TEST ORDERABLES Fi nal Result Performing Organization Address City/[facility] Co de Phone Number [facility] LAB See Below * (ABNORMAL) POCT Glucose, Fingerstick (10/21/2025 8:26 PM EST) POC Glucose 310(H) 65 - 99 mg/dL 10/21/2025 8:26 PM EST Blood specimen / Unknown 10/21/2025 8:26 PM EST 10/21/2025 8:27 PM EST us Jose Trejo MD POINT OF CARE TEST ORDERABLES Fi nal Result Performing Organization Address [facility] LAB See Below * (ABNORMAL) POCT Glucose, Fingerstick (10/21/2025 6:14 PM EST) POC Glucose 229(H) 65 - 99 mg/dL 10/21/2025 6:15 PM EST Blood specimen / Unknown 10/21/2025 6:14 PM EST 10/21/2025 6:15 PM EST us Jose Trejo MD POINT OF CARE TEST ORDERABLES Fi nal Result Performing Organization Address [facility] LAB See Below * (ABNORMAL) POCT Glucose, Fingerstick (10/21/2025 3:52 PM EST) POC Glucose 249(H) 65 - 99 mg/dL 10/21/2025 3:56 PM EST Blood specimen / Unknown 10/21/2025 3:52 PM EST 10/21/2025 3:56 PM EST us Jose Trejo MD POINT OF CARE TEST ORDERABLES Fi nal Result Performing Organization Address [facility] LAB See Below * (ABNORMAL) ISTAT Glucose (10/21/2025 3:17 PM EST) Glucose, I-STAT 245(H) 65 - 99 mg/dL 10/21/2025 3:22 PM EST Blood specimen / Unknown 10/21/2025 3:17 PM EST 10/21/2025 3:22 PM EST us Angelia Zavala MD POCT ORDERABLES - DEVICE Final Result Performing Organization Address [facility] [facility] [place] LAB See Below * (ABNORMAL) POCT Glucose, Fingerstick (10/21/2025 11:45 AM EST) POC Glucose 233(H) 65 - 99 mg/dL 10/21/2025 11:49 AM EST Blood specimen / Unknown 10/21/2025 11:45 AM EST 10/21/2025 11:49 AM EST us Jose Trejo MD POINT OF CARE TEST ORDERABLES Fi nal Result HOSPITAL LAB See Below * US OB [...] canal. Interpreted by: José Manuel Fried DO [employer] Operator I personally reviewed the images and the resident's preliminary report and AGREE with the report as it is now presented ([id number]). Narrative 10/21/2025 10:32 AM EST EXAMINATION: US DEVOPS ENGINEER PELVIS TRANSABDOMINAL COMPLETE, US DEVOPS ENGINEER TRANSVAGINAL WITH COMPLETE DOPPLER CLINICAL INFORMATION: Concerns [...] Micki Menezes MD - 10/21/2025 EXAMINATION: US DEVOPS ENGINEER PELVIS TRANSABDOMINAL COMPLETE, US DEVOPS ENGINEER TRANSVAGINAL WITH COMPLETE DOPPLER CLINICAL INFORMATION: Concerns [...] canal. Interpreted by: José Manuel Fried DO [employer] Operator I personally reviewed the images and the [...] 65 - 99 mg/dL 10/21/2025 1:44 PM [facility] Blood Urea Nitrogen (BUN) 6(L) 8 - 21 mg/dL 10/21/2025 2:01 PM [facility] Creatinine 0.47 0.40 - 1.10 mg/dL 10/21/2025 2:01 PM [facility] eGFR >90 >59 10/21/2025 2:01 PM [facility] Comment:CKD-EPI (2020) in mL /min/1.73 sq meters. Sodium Add-on cannot be performed, specimen stability . 136 - 145 mmol/L 10/21/2025 1:44 PM [facility] Potassium Add-on cannot be performed, specimen stability . 3.4 - 5.3 mmol/L 10/21/2025 1:44 PM [facility] Chloride Add-on cannot be performed, specimen stability . 98 - 107 mmol/L 10/21/2025 1:44 PM [facility] CO2 Add-on cannot be performed, specimen stability . 22 - 33 mmol/L 10/21/2025 1:44 PM [facility] Calcium 9.6 8.7 - 10.5 mg/dL 10/21/2025 2:01 PM [facility] BUN/Creatinine Ratio 13 10.0 - 25.0 Ratio 10/21/2025 2:01 PM [facility] 10/21/2025 7:40 AM EST 10/21/2025 8:08 AM EST us Lisy Neumann MD LAB BLOOD ORDERABLES Final Result Performing Organization Address [facility] [place] [address], [place] [address] * (ABNORMAL) Beta-hCG, Quantitative (10/21/2025 7:40 AM EST) Beta-hCG, Quantitative 159(H) <5 mIU/mL 10/21/2025 8:50 AM EST [facility] Blood Blood specimen / Unknown 10/21/2025 7:40 AM EST 10/21/2025 8:08 AM EST us Lisy Neumann MD LAB BLOOD ORDERABLES Final Result Performing Organization Address [facility] [place] [address], [place] [address] * (ABNORMAL) POCT Glucose, Fingerstick (10/21/2025 4:49 AM EST) POC Glucose 124(H) 65 - 99 mg/dL 10/21/2025 4:50 AM EST Blood specimen / Unknown 10/21/2025 4:49 AM EST 10/21/2025 4:50 AM EST us Jose Trejo MD POINT OF CARE TEST ORDERABLES Fi nal Result Performing Organization Address [facility] Co de Phone Number HOSPITAL LAB See Below * (ABNORMAL) POCT Glucose, Fingerstick (10/21/2025 12:53 AM EST) POC Glucose 254(H) 65 - 99 mg/dL 10/21/2025 12:53 AM EST Blood specimen / Unknown 10/21/2025 12:53 AM EST 10/21/2025 12:54 AM EST us Jose Trejo MD POINT OF CARE TEST ORDERABLES Fi nal Result Performing Organization Address [facility] Co de Phone Number HOSPITAL LAB See Below * Osmolality (10/20/2025 10:25 PM EST) Osmolality, Serum/Plasma 293 275 - 295 mOsm/Kg 10/21/2025 1:54 AM [facility] Blood Blood specimen / Unknown 10/20/2025 10:25 PM EST 10/20/2025 10:55 PM EST Olga Velez APRN LAB BLOOD [place] [address], [place] [address] * (ABNORMAL) Comprehensive Metabolic Panel (10/20/2025 10:25 PM EST) Pathologist [facility] Glucose 404(HH) 65 - 99 mg/dL 10/20/2025 11:30 PM [facility] Comment:Fasting: <100 mg/dL, Non-Fasting: <200 mg/dL (ADA 2005) Blood Urea Nitrogen (BUN) 6(L) 8 - 21 mg/dL 10/20/2025 11:30 PM [facility] Creatinine 0.40 0.40 - 1.10 mg/dL 10/20/2025 11:30 PM [facility] eGFR >90 >59 10/20/2025 11:30 PM [facility] Comment:CKD-EPI (2020) in mL /min/1.73 sq meters. Sodium 131(L) 136 - 145 mmol/L 10/20/2025 11:30 PM [facility] Potassium 3.6 3.4 - 5.3 mmol/L 10/20/2025 11:30 PM [facility] Chloride 95(L) 98 - 107 mmol/L 10/20/2025 11:30 PM [facility] CO2 24 22 - 33 mmol/L 10/20/2025 11:30 PM [facility] Calcium 8.7 8.7 - 10.5 mg/dL 10/20/2025 11:30 PM [facility] Alkaline Phosphatase 109 32 - 122 U/L 10/20/2025 11:30 PM [facility] Aspartate Aminotrans (AST) 35 10 - 50 U/L 10/20/2025 11:30 PM [facility] Alanine Aminotrans (ALT) 25 10 - 50 U/L 10/20/2025 11:30 PM [facility] Bilirubin, Total 0.2 0.2 - 1.0 mg/dL 10/20/2025 11:30 PM [facility] Protein, Total 6.3 6.3 - 8.3 g/dL 10/20/2025 11:30 PM [facility] Albumin 3.9 3.5 - 5.0 g/dL 10/20/2025 11:30 PM [facility] BUN/Creatinine Ratio 15 10.0 - 25.0 Ratio 10/20/2025 11:30 PM [facility] Globulin 2.4 1.5 - 3.9 g/dL 10/20/2025 11:30 PM [facility] Albumin/Globulin Ratio 1.6 1.0 - 3.0 Ratio 10/20/2025 11:30 PM [facility] Anion Gap 12 7 - 17 10/20/2025 11:30 PM [facility] Blood Blood specimen / Unknown 10/20/2025 10:25 PM EST 10/20/2025 10:55 PM EST us Olga Velez APRN LAB BLOOD ORDERABLES Final Result Performing Organization Address City/State/[facility] [place] [address], [place] [id number] * (ABNORMAL) Complete Blood Count, with Differential (10/20/2025 10:25 PM EST) White Blood Cell Count 5.7 4.0 - 11.0 Thou/uL 10/20/2025 11:27 PM [facility] Platelet Count 181 150 - 450 Thou/uL 10/20/2025 11:27 PM [facility] Hemoglobin 11.7 11.7 - 15.7 g/dL 10/20/2025 11:27 PM [facility] Hematocrit 35.0 35.0 - 47.0 % 10/20/2025 11:27 PM [facility] Red Blood Cell Count 3.98(L) 4.00 - 5.40 Mil/uL 10/20/2025 11:27 PM [facility] MCV 88 80 - 100 fL 10/20/2025 11:27 PM [facility] MCH 29.4 26.0 - 34.0 pg 10/20/2025 11:27 PM [facility] MCHC 33.4 30.0 - 36.0 g/dL 10/20/2025 11:27 PM [facility] RDW 11.9 11.5 - 14.5 % 10/20/2025 11:27 PM [facility] MPV 10.0 7.5 - 12.5 fL 10/20/2025 11:27 PM [facility] Neutrophils Auto 66.2 % 10/20/20 11:27 PM [facility] Immature Granulocytes 0.3 % 10/20/2025 11:27 PM [facility] Lymphocytes Auto 26.4 % 10/20/20 11:27 PM [facility] Monocytes Auto 4.2 % 10/20/2025 11:27 PM [facility] Eosinophils Auto 2.6 % 10/20/20 11:27 PM [facility] Basophils Auto 0.3 % 10/20/2025 11:27 PM [facility] Abs Neutrophils Auto 3.79 2.00 - 7.50 Thou/uL 10/20/2025 11:27 PM [facility] Abs Immature Granulocytes 0.02 0.00 - 0.10 Thou/uL 10/20/2025 11:27 PM [facility] Abs Lymphocytes Auto 1.51 1.50 - 4.50 Thou/uL 10/20/2025 11:27 PM [facility] Abs Monocytes Auto 0.24 0.20 - 1.50 Thou/uL 10/20/2025 11:27 PM [facility] Abs Eosinophils Auto 0.15 0.00 - 0.70 Thou/uL 10/20/2025 11:27 PM [facility] Abs Basophils Auto 0.02 0.00 - 0.20 Thou/uL 10/20/2025 11:27 PM [facility] Blood Blood specimen / Unknown 10/20/2025 10:25 PM EST 10/20/2025 10:55 PM [facility] us Olga O Bycenski INDUSTRIAL SOCIOLOGIST LAB BLOOD ORDERABLES Final Result Performing Organization Address City/[facility]/[place] [address], [place] [address] * B-Hydroxybutyrate (10/20/2025 10:25 PM EST) B-Hydroxybutyrate <0.05 <0.28 mmol/L 10/20/2025 11:42 PM EST [facility] Comment: In the presence of [...] BLOOD ORDERABLES Final Result Performing Organization Address [facility]/[place] [address], [place] [address] * (ABNORMAL) POCT Glucose, Fingerstick (10/20/2025 9:27 PM EST) POC Glucose 460(H) 65 - 99 mg/dL 10/20/2025 9:32 PM EST Blood specimen / Unknown 10/20/2025 9:27 PM EST 10/20/2025 9:32 PM EST Jose Trejo MD POINT OF [...] nal Result HOSPITAL LAB See Below * EEG AWAKE OR DROWSY (10/20/2025 7:20 PM EST) Narrative [facility] - 10/20/2025 7:20 PM EST Juan Dillon MD 10/21/2025 8:04 AM INPATIENT ADULT ELECTROENCEPHALOGRAM (EEG) REPORT Facility: [facility] Patient and : Ibeth Sommers 1995 Date [...] :qz!02; No events :qz!08; Complexity ratin :qz!15 [id number] Brief ictal rhythmic discharges (BIRDs) NO 0 Lateralized periodic discharges (LPDs) OR lateralized rhythmic delta activity (LRDA) OR bilateral independent periodic discharges NO 0 Prior seizure NO 0 Sporadic epileptiform discharges NO 0 Frequency greater than 2 Hz for any periodic or rhythmic pattern NO 0 Presence of PLUS features (superimposed, rhythmic, sharp, or faster activity) NO 0 [id number] TOTAL SCORE: 0 (5% SZ [![id number]]) E.E.G. [...] clinical diagnosis of seizures. Juan Dillon MD. [facility] Jerry Lopez MD NEUROLOGY ORDERABLES Ko vijay Result - Final Performing Organization Address City/[facility]/ZIP Co de Phone Number [facility] [address] [place] [address], * (ABNORMAL) POCT Glucose, Fingerstick (10/20/2025 4:59 PM EST) POC Glucose 149(H) 65 - 99 mg/dL 10/20/2025 5:03 PM EST Blood specimen / Unknown 10/20/2025 4:59 PM EST 10/20/2025 5:03 PM EST Jose Trejo MD POINT OF CARE TEST ORDERABLES Fi nal Result Performing Organization Address City/[facility]/ZIP Co de Phone Number HOSPITAL LAB See Below * US Abdomen-Limited [...] recommended for definitive characterization. Juan Mayorga MD [facility] US ORDERABLES Final Result * (ABNORMAL) POCT Glucose, Fingerstick (10/20/2025 11:40 AM EST) POC Glucose 182(H) 65 - 99 mg/dL 10/20/2025 11:47 AM EST Blood specimen / Unknown 10/20/2025 11:40 AM EST 10/20/2025 11:47 AM EST Jose Trejo MD POINT OF CARE TEST ORDERABLES Fi nal Result Performing Organization Address [facility] de Phone Number [facility] LAB See Below * (ABNORMAL) POCT Glucose, Fingerstick (10/20/2025 8:15 AM EST) POC Glucose 140(H) 65 - 99 mg/dL 10/20/2025 8:31 AM EST Blood specimen / Unknown 10/20/2025 8:15 AM EST 10/20/2025 8:31 AM EST Jose Trejo MD POINT OF CARE TEST ORDERABLES Fi nal Result Performing Organization Address [facility] de Phone Number HOSPITAL LAB See Below * Ammonia Level (10/20/2025 4:59 AM EST) Ammonia, Plasma 43 11 - 51 umol/L 10/20/2025 5:30 AM EST [facility] Blood Blood specimen / Unknown 10/20/2025 4:59 AM EST 10/20/2025 5:02 AM EST Jerry Lopez MD LAB BLOOD ORDERABLES Fin al Result [facility] [address] [place] [address], [facility] [address] [place] [address] * (ABNORMAL) Comprehensive Metabolic Panel (10/20/2025 4:59 AM EST) Glucose 140(H) 65 - 99 mg/dL 10/20/2025 5:42 AM [facility] Comment:Fasting: <100 mg/dL, Non-Fasting: <200 mg/dL (ADA 2004) Blood Urea Nitrogen (BUN) 7(L) 8 - 21 mg/dL 10/20/2025 5:42 AM [facility] Creatinine 0.44 0.40 - 1.10 mg/dL 10/20/2025 5:42 AM [facility] eGFR >90 >59 10/20/2025 5:42 AM [facility] Comment:CKD-EPI (2020) in mL /min/1.73 sq meters. Sodium 136 136 - 145 mmol/L 10/20/2025 5:42 AM [facility] Potassium 3.3(L) 3.4 - 5.3 mmol/L 10/20/2025 5:42 AM [facility] Chloride 102 98 - 107 mmol/L 10/20/2025 5:42 AM [facility] CO2 25 22 - 33 mmol/L 10/20/2025 5:42 AM [facility] Calcium 8.5(L) 8.7 - 10.5 mg/dL 10/20/2025 5:42 AM [facility] Alkaline Phosphatase 92 32 - 122 U/L 10/20/2025 5:42 AM [facility] Aspartate Aminotrans (AST) 39 10 - 50 U/L 10/20/2025 5:42 AM [facility] Alanine Aminotrans (ALT) 20 10 - 50 U/L 10/20/2025 5:42 AM [facility] Bilirubin, Total 0.4 0.2 - 1.0 mg/dL 10/20/2025 5:42 AM [facility] Protein, Total 5.8(L) 6.3 - 8.3 g/dL 10/20/2025 5:42 AM [facility] Albumin 3.3(L) 3.5 - 5.0 g/dL 10/20/2025 5:42 AM [facility] BUN/Creatinine Ratio 16 10.0 - 25.0 Ratio 10/20/2025 5:42 AM [facility] Globulin 2.5 1.5 - 3.9 g/dL 10/20/2025 5:42 AM [facility] Albumin/Globulin Ratio 1.3 1.0 - 3.0 Ratio 10/20/2025 5:42 AM [facility] Anion Gap 9 7 - 17 10/20/2025 5:42 AM [facility] Blood Blood specimen / Unknown 10/20/2025 4:59 AM EST 10/20/2025 5:19 AM EST Juan Mayorga MD LAB BLOOD ORDERABLES Final Res ult Performing Organization Address City/State/[facility] [place] [address], [place] [id number] * (ABNORMAL) Complete Blood Count, with Differential (10/20/2025 4:59 AM EST) White Blood Cell Count 5.6 4.0 - 11.0 Thou/uL 10/20/2025 5:26 AM [facility] Platelet Count 170 150 - 450 Thou/uL 10/20/2025 5:26 AM [facility] Hemoglobin 11.4(L) 11.7 - 15.7 g/dL 10/20/2025 5:26 AM [facility] Hematocrit 33.3(L) 35.0 - 47.0 % 10/20/2025 5:26 AM [facility] Red Blood Cell Count 3.83(L) 4.00 - 5.40 Mil/uL 10/20/2025 5:26 AM [facility] MCV 87 80 - 100 fL 10/20/2025 5:26 AM [facility] MCH 29.8 26.0 - 34.0 pg 10/20/2025 5:26 AM [facility] MCHC 34.2 30.0 - 36.0 g/dL 10/20/2025 5:26 AM [facility] RDW 11.9 11.5 - 14.5 % 10/20/2025 5:26 AM [facility] MPV 9.4 7.5 - 12.5 fL 10/20/2025 5:26 AM [facility] Neutrophils Auto 41.7 % 10/20/20 5:26 AM [facility] Immature Granulocytes 0.2 % 10/20/2025 5:26 AM [facility] Lymphocytes Auto 49.7 % 10/20/20 5:26 AM [facility] Monocytes Auto 5.0 % 10/20/2025 5:26 AM [facility] Eosinophils Auto 3.0 % 10/20/20 5:26 AM [facility] Basophils Auto 0.4 % 10/20/2025 5:26 AM [facility] Abs Neutrophils Auto 2.35 2.00 - 7.50 Thou/uL 10/20/2025 5:26 AM [facility] Abs Immature Granulocytes 0.01 0.00 - 0.10 Thou/uL 10/20/2025 5:26 AM [facility] Abs Lymphocytes Auto 2.80 1.50 - 4.50 Thou/uL 10/20/2025 5:26 AM [facility] Abs Monocytes Auto 0.28 0.20 - 1.50 Thou/uL 10/20/2025 5:26 AM [facility] Abs Eosinophils Auto 0.17 0.00 - 0.70 Thou/uL 10/20/2025 5:26 AM [facility] Abs Basophils Auto 0.02 0.00 - 0.20 Thou/uL 10/20/2025 5:26 AM [facility] Blood Blood specimen / Unknown 10/20/2025 4:59 AM EST 10/20/2025 5:19 AM EST us Juan Mayorga MD LAB BLOOD [place]AB[place] [address], [place] [address] * (ABNORMAL) POCT Glucose, Fingerstick (10/20/2025 4:32 AM EST) POC Glucose 137(H) 65 - 99 mg/dL 10/20/2025 7:45 AM EST Blood specimen / Unknown 10/20/2025 4:32 AM EST 10/20/2025 7:45 AM EST us Jose Trejo MD POINT OF CARE TEST ORDERABLES Fi nal Result Performing Organization Address [facility] Co de Phone Number [facility] LAB See Below * (ABNORMAL) POCT Glucose, Fingerstick (10/20/2025 2:02 AM EST) POC Glucose 180(H) 65 - 99 mg/dL 10/20/2025 2:03 AM EST Blood specimen / Unknown 10/20/2025 2:02 AM EST 10/20/2025 2:03 AM EST us Jose Trejo MD POINT OF CARE TEST ORDERABLES Fi nal Result Performing Organization Address [facility] Co ks Phone Number [facility] LAB See Below * (ABNORMAL) BETA-HCG, QUANTITATIVE (10/20/2025 1:00 AM EST) Beta-hCG, Quantitative 155(H) <5 mIU/mL 10/20/2025 4:04 AM EST [facility] 10/20/2025 1:00 AM EST 10/20/2025 1:47 AM EST us Juan Mayorga MD LAB BLOOD ORDERABLES Final Res ult Performing Organization Address [facility] Co de Phone Number [address] [address], [address] [address] * (ABNORMAL) Beta-hCG, Qualitative, Reflex Quant (10/20/2025 1:00 AM EST) Beta-hCG, Qualitative Positive( A) Negative 10/20/2025 2:18 AM EST [facility] 10/20/2025 1:00 AM EST 10/20/2025 1:47 AM EST us Juan Mayorga MD LAB BLOOD ORDERABLES Final Res ult Performing Organization Address City/[facility] [place] [address], [place] [address] * (ABNORMAL) LIPASE (10/20/2025 1:00 AM EST) Lipase 8(L) 13 - 60 U/L 10/20/2025 2:18 AM EST [facility] 10/20/2025 1:00 AM EST 10/20/2025 1:47 AM EST us Juan Mayorga MD LAB BLOOD ORDERABLES Final Res ult Performing Organization Address [facility] [place] [address], [place] [address] * B-Hydroxybutyrate (10/20/2025 1:00 AM EST) B-Hydroxybutyrate 0.06 <0.28 mmol/L 10/20/2025 2:18 AM EST [facility] Comment: In the presence of [...] ORDERABLES Final Res ult Performing Organization Address [facility] [place] [address], [address] [address] * (ABNORMAL) Comprehensive Metabolic Panel (10/20/2025 1:00 AM EST) [facility] Glucose 165(H) 65 - 99 mg/dL 10/20/2025 2:18 AM [facility] Comment:Fasting: <100 mg/dL, Non-Fasting: <200 mg/dL (ADA 2004) Blood Urea Nitrogen (BUN) 7(L) 8 - 21 mg/dL 10/20/2025 2:18 AM [facility] Creatinine 0.38(L) 0.40 - 1.10 mg/dL 10/20/2025 2:18 AM [facility] eGFR >90 >59 10/20/2025 2:18 AM [facility] Comment:CKD-EPI (2020) in mL /min/1.73 sq meters. Sodium 133(L) 136 - 145 mmol/L 10/20/2025 2:18 AM [facility] Potassium 3.2(L) 3.4 - 5.3 mmol/L 10/20/2025 2:18 AM [facility] Chloride 99 98 - 107 mmol/L 10/20/2025 2:18 AM [facility] CO2 25 22 - 33 mmol/L 10/20/2025 2:18 AM [facility] Calcium 8.6(L) 8.7 - 10.5 mg/dL 10/20/2025 2:18 AM [facility] Alkaline Phosphatase 97 32 - 122 U/L 10/20/2025 2:18 AM [facility] Aspartate Aminotrans (AST) 50 10 - 50 U/L 10/20/2025 2:18 AM [facility] Alanine Aminotrans (ALT) 23 10 - 50 U/L 10/20/2025 2:18 AM [facility] Bilirubin, Total 0.4 0.2 - 1.0 mg/dL 10/20/2025 2:18 AM [facility] Protein, Total 6.4 6.3 - 8.3 g/dL 10/20/2025 2:18 AM [facility] Albumin 3.6 3.5 - 5.0 g/dL 10/20/2025 2:18 AM [facility] BUN/Creatinine Ratio 18 10.0 - 25.0 Ratio 10/20/2025 2:18 AM [facility] Globulin 2.8 1.5 - 3.9 g/dL 10/20/2025 2:18 AM [facility] Albumin/Globulin Ratio 1.3 1.0 - 3.0 Ratio 10/20/2025 2:18 AM [facility] Anion Gap 9 7 - 17 10/20/2025 2:18 AM [facility] Blood Blood specimen / Unknown 10/20/2025 1:00 AM EST 10/20/2025 1:47 AM EST Juan Mayorga MD LAB BLOOD [place]AB[place] [address], [place] [address] * (ABNORMAL) Complete Blood Count, with Differential (10/20/2025 1:00 AM EST) White Blood Cell Count 5.9 4.0 - 11.0 Thou/uL 10/20/2025 1:50 AM [facility] Platelet Count 156 150 - 450 Thou/uL 10/20/2025 1:50 AM [facility] Hemoglobin 11.0(L) 11.7 - 15.7 g/dL 10/20/2025 1:50 AM [facility] Hematocrit 32.4(L) 35.0 - 47.0 % 10/20/2025 1:50 AM [facility] Red Blood Cell Count 3.67(L) 4.00 - 5.40 Mil/uL 10/20/2025 1:50 AM [facility] MCV 88 80 - 100 fL 10/20/2025 1:50 AM [facility] MCH 30.0 26.0 - 34.0 pg 10/20/2025 1:50 AM [facility] MCHC 34.0 30.0 - 36.0 g/dL 10/20/2025 1:50 AM [facility] RDW 11.9 11.5 - 14.5 % 10/20/2025 1:50 AM [facility] MPV 9.5 7.5 - 12.5 fL 10/20/2025 1:50 AM [facility] Neutrophils Auto 54.6 % 10/20/20 1:50 AM [facility] Immature Granulocytes 0.2 % 10/20/2025 1:50 AM [facility] Lymphocytes Auto 36.5 % 10/20/20 1:50 AM [facility] Monocytes Auto 5.7 % 10/20/2025 1:50 AM [facility] Eosinophils Auto 2.5 % 10/20/20 1:50 AM [facility] Basophils Auto 0.5 % 10/20/2025 1:50 AM [facility] Abs Neutrophils Auto 3.24 2.00 - 7.50 Thou/uL 10/20/2025 1:50 AM [facility] Abs Immature Granulocytes 0.01 0.00 - 0.10 Thou/uL 10/20/2025 1:50 AM [facility] Abs Lymphocytes Auto 2.17 1.50 - 4.50 Thou/uL 10/20/2025 1:50 AM [facility] Abs Monocytes Auto 0.34 0.20 - 1.50 Thou/uL 10/20/2025 1:50 AM [facility] Abs Eosinophils Auto 0.15 0.00 - 0.70 Thou/uL 10/20/2025 1:50 AM [facility] Abs Basophils Auto 0.03 0.00 - 0.20 Thou/uL 10/20/2025 1:50 AM [facility] Blood Blood specimen / Unknown 10/20/2025 1:00 AM EST 10/20/2025 1:47 AM EST Juan Mayorga MD LAB BLOOD [place]AB[place] [address], [place] [id number] * (ABNORMAL) POCT Glucose, Fingerstick (10/20/2025 12:44 AM EST) POC Glucose 166(H) 65 - 99 mg/dL 10/20/2025 12:49 AM EST Blood specimen / Unknown 10/20/2025 12:44 AM EST 10/20/2025 12:48 AM EST us Jose Treoj MD POINT OF CARE TEST ORDERABLES Fi nal Result HOSPITAL LAB See Below * (ABNORMAL) POCT Glucose, Fingerstick (10/19/2025 9:25 PM EST) POC Glucose 155(H) 65 - 99 mg/dL 10/19/2025 9:34 PM EST Blood specimen / Unknown 10/19/2025 9:25 PM EST 10/19/2025 9:34 PM EST us Jose Trejo MD POINT OF CARE TEST ORDERABLES Fi nal Result Performing Organization Address [facility] Co de Phone Number [facility] See Below documented in this encounter Visit Diagnoses Diagnosis Alcohol withdrawal with complication with inpatient treatment ([facility])- Primary Other ectopic without intrauterine Abdominal pain of multiple sites Other ectopic without intrauterine Bipolar disorder ([facility]) Bipolar disorder, unspecified PTSD (post-traumatic stress disorder) Posttraumatic stress disorder Other ectopic without intrauterine documented in this encounter Admitting Diagnoses Diagnosis Alcohol withdrawal with complication with inpatient treatment ([facility]) documented in this encounter Administered Medications Inactive Administered Medications - up to 1 most recent administrations Medication Order MAR Action Action Date Dose Rate Site acetaminophen (TYLENOL) tablet 975 mg 975 mg, [...] by day 2, Starting on Fri10/19/25 at 2058 bupivacaine preservative free (MARCAINE) 0.5 % injection Once PRN, Starting on Fri10/21/25 at 1525, Intra-op Given 10/21/2025 3:25 PM EST 30 mL Abdominal Tissue cloNIDine (CATAPRES) tablet 0.1 mg 0.1 mg, Oral, 3 times daily, First dose on Fri10/19/25 at 2200, Hold for SBP less than 100 mmHg. Notify provider if a dose is held. Given 10/22/2025 8:19 AM EST 0.1 mg folic acid (FOLVITE) tablet 1 mg 1 mg, Oral, Daily, First dose on Angie [...] AM EST 0.5 mg HYDROmorphone (DILAUDID) injection 1 mg 1 mg, Intravenous, Every 4 hours PRN, severe to excruciating pain 7-10, Starting on Fri10/21/25 at 1312, For 7 days, For IV Push, administer over 2 to 3 minutes. Given 10/22/2025 12:22 PM EST 1 mg insulin lispro (HumaLOG/ADMELOG) 100 units/mL injection 1-4 Units 1-4 Units, Subcutaneous, Nightly and 0200, First dose on 10/22/25 at 0200, DO NOT HOLD IF NPO [...] 11:55 AM EST 3 Units Abdominal Tissue lactulose (ENULOSE) 10 gm/15 [...] 1 tablet naloxone (NARCAN) 0.4 mg/mL injection 0.4 mg [...] Reason: Patient/family refused)1154 (Given - Provider: Roxy Aguirre, DILIP) cloNIDine (CATAPRES) tablet 0.1 mg 0.1 mg, [...] Reinoso RN) 0819 (Given - Provider: Roxy Aguirre RN)1400 (Due) diazepam (VALIUM) injection 10 mg (CANCELED)(Linked [...] Fri10/19/25 at 2200 0841 (Given - Provider: Shaina Barlow RN)1515 (Given [...] RN - Reason: Patient off floor for test/procedure)205 (Not Given - Provider: Kayla Reinoso RN [...] Harrington RN - Reason: Other - Comment required)2038 (Given - Provider: Kayla Reinoso RN) 0034 (Given - Provider: Kayla Reinoso, RN) insulin [...] 1 tablet, Oral, Daily, First dose on Fri10/20/25 at [...] in lab value)2100 (Hold - Provider: Shira Church RN - Reason: See Provider Order) 0900 (Hold - Provider: Shaina Barlow RN - Reason: See Provider Order)2100 (Dose Auto Held - Provider: Angelia Zavala MD) 0117 (Provider Unheld - Provider: Miranda Duarte MD)0819 (Given - Provider: Roxy Aguirre RN) polyethylene glycol (miraLAx) packet 17 g 17 g, Oral, Daily, First dose on Fri10/21/25 at 1730, Stir and dissolve in 4-8 oz of fluids. 1756 (Not Given - Provider: Shaina Barlow RN - Reason: Patient off floor for test/procedure) 0820 (Given - Provider: Roxy Aguirre RN) risperiDONE (RisperDAL) tablet 1 mg 1 mg, Oral, 2 times daily, First dose on Fri10/19/25 at 2130 0843 (Given - Provider: Shaina Barlow RN)2205 (Given - Provider: Shira Church RN) 0751 (Given - Provider: Shaina Barlow RN)205 (Not Given - Provider: Kayla Reinoso RN - Reason: Patient/family refused) 0819 (Given - Provider: Roxy Aguirre, DILIP) senna-docusate (SENNA-S) 8.6-50 MG tablet 2 tablet 2 tablet, Oral, Nightly, First dose on Fri10/19/25 at 2100, Hold for diarrhea 2208 (Hold - Provider: Shira Church RN - Reason: Other- Comment on reason [...] Shaina Barlow RN)1516 (Given - Provider: Shaina Barlow RN)2204 (Given - Provider: Shira Church RN) 0753 (Given - Provider: Shaina Barlow RN)1017 (Given - Provider: Shaina Barlow RN)1755 (Not Given - Provider: Shaina Barlow RN - Reason: Patient off floor for test/procedure)2051 (Not Given - Provider: Kayla Reinoso RN - Reason: Patient/family refused) 0820 (Given - Provider: Roxy Aguirre, DILIP)1154 (Given - Provider: Roxy Aguirre, DILIP) thiamine mononitrate (VITAMIN B-1) tablet 200 mg 200 mg, Oral, Daily, First dose on Fri10/20/25 at 0900 0842 (Given - Provider: Shaina [...] Meredith MD) 0119 (Stopped - Provider: Kayla Reinoso RN) PRN Medication Order 10/20/2025 10/21/2025 10/22/2025 acetaminophen (TYLENOL) tablet 975 mg 975 mg, Oral, Every 6 hours PRN, mild pain 1-3, fever greater than 101.5, Starting on Fri10/19/25 at 2057, May use for pain when patient is tolerating PO 2032 (Not Given - Provider: Kayla Reinoso RN - Reason: Patient/family refused) bisacodyl (DULCOLAX) suppository 10 mg 10 mg, Rectal, Daily PRN, constipation, if no bowel movement by day 2, Starting on Fri10/19/25 at 2057 bupivacaine preservative free (MARCAINE) 0.5 % injection [...] lab value)1410 (Provider Unheld - Provider: Alexi Galeas, PharmD) HYDROmorphone (DILAUDID) injection 1 mg 1 mg, Intravenous, Every 4 hours PRN, severe to excruciating pain 7-10, Starting on Fri10/21/25 at 1312, For 7 days, For IV Push, administer over 2 to 3 minutes. 1333 (Given - Provider: Shaina Balrow RN)1817 (Given - Provider: Shaina Barlow RN)2130 (Given - Provider: Kayla Reinoso, RN) 0034 (Given - Provider: Kayla Reinoso [...]
--- OUTSIDE RECORDS SUMMARY | 2025-10-21 14:15 | XMS_ITS | Encounter Summary ---
Author Organization [facility] Address [address] [place] [address] Care Team Providers Care Upper Shaper Name Role Phone Unavailable Primary Care Provider Unavailabl e Encounter Details Date Type Department Care Team (Late st Contact Info) Description 10/21/2025 2:15 PM EST Anesthesia Event [facility] [address] [place] [id number] Karine Meredith MD [address] [place] [id number] Rosanne Kim PA-C [address] [place] [address] [place] [address] Anesthesia Record Procedure Summary Procedure Name Responsible Anesthesiologist Anesthesia Start Time Anesthesia Stop Time LAPAROSCOPY DIAGNOSTIC, LEFT SALPINGECTOMY (Abdomen) Karine Meredith MD 10/21/25 1415 10/21/25 1551 Events Date Time Event Comment 10/21/2025 1341 AN Equip Check 1345 1415 An Start 1415 An Start Data 1420 An Induction 1423 An Intubation 1424 Anesthesia Ready 1521 AN Emergence 1534 An Extubation 1539 AN Stop Data 1551 Handoff to Receiving I compl eted my handoff to the receiving clinician during which we: 1. Identified the patient 2. Identified the responsible provider 3. Reviewed pertinent medical history 4. Discussed the surgical or procedural course 5. Reviewed intraoperative management and issues during anesthesia 6. Set expectations for the post-procedure period 7. Allowed opportunity for questions and acknowledgement of understanding. 1551 An Stop Meds Name Total propofol 10 mg/mL BOLUS 200 mg rocuronium 10 mg/mL injection 100 mg HYDROmorphone 2 mg/mL injection 2 mg lidocaine 2% (PF) injection (vial) 3 mL ondansetron 2 mg/mL injection 4 mg sugammadex 200 mg/2 mL injection 200 mg PHENYLephrine 100 mcg/mL - 10 mL SYRINGE (PREMIX) - INTRA-OP 600 mcg norepinephrine 160 mcg in 20 mL NS syrin ge 16 mcg norepinephrine (LEVOPHED) 8 mg in sodium chloride (NS) 0.9 % 250 mL IV infusion 200 mcg lactated ringers (LR) infusion 0 mL * Agents Name O2 N2O Air Sevoflurane * Blood No blood administrations on file. Lines, Drains, and Airways Type Details Placement Removal Incision (Adult, Obstetrics, Pediatrics) 10/21/25; 1539; abdomen; Steristrips, 2x2 gauze, tegaderms 10/21/25 1539 by Yuri Graham RN PIV-Single luman 10/20/25; 0122; basi lic vein (medial side of arm), right (lower arm); dpiq-uvz-iwyzgi catheter system; 20 gauge, 1 in length; ultrasound guidance; 0; distraction, tolerated well, appears comfortable; 10/22/25; 1331 10/20/25 0122 by Kayla Villalobos RN 10/22/25 1331 by Roxy Aguirre RN Tunneled Central Line - Single Lumen (Adult) 10/21/25; internal jugular vein, left, other (see comments) (EJ); not tunneled is an EJ; 10/22/25; 1331 10/21/25 0000 by Shaina Barlow RN 10/22/25 1331 by Roxy Aguirre RN Urethral Catheter (Adult) 10/21/25; 1450; indwelling double lumen catheter; latex; 16 Fr; inserted at this facility; 1; 10 mL balloon size; 10 mL balloon inflation volume; none; 10/21/25; 1527 10/21/25 1450 by Yuri Graham RN 10/21/25 1527 by Yuri Graham RN Airway-Oral/DYNAMIC BALANCER 10/21/25; 1507 (tori linares via procedure documentation); endotracheal tube; 10/21/25; 1534 10/21/25 1507 by Karine Meredith MD 10/21/25 1534 by Karine Meredith MD documented in this encounter Social History Tobacco Use Types Packs/Day Years [...] time in the past 12 m [facility], were you homeless or living in a detention (including now)? Patient declined 10/21/2025 [facility] Utilities Answer Date Recorded In the past 12 months has th e [employer], gas, oil, or water company threatened to shut off services in your home? Patient declined 10/21/2025 Comments Unknown Sex and Gender Information Value Date Recorded Sex Assigned at Not on file Legal Sex Female 4:49 PM EST Gender Identity Not on file Sexual Orientation Not on file documented as of this encounter Last Filed Vital Signs Vital Sign Reading Time Taken Comments Blood Pressure - - Pulse - - Temperature - - Respiratory Rate 1 10/21/2025 3:38 PM EST Oxygen Saturation 100% 10/21/2025 3:38 PM EST Inhaled Oxygen Concentration - - Weight - - Height - - Body Mass Index - - documented in this encounter OR Notes * Anesthesia Procedure Notes - Karine Meredith MD - 10/21/2025 3:06 PM EST Associated Order(s): Airway Management Anesthesia Procedure Note - intubation Patient Name: Ibeth Sommers : 1995 Patient location: OR Procedure indications: airway protection Procedure diagnosis: Anesthesia Performed by: Anesthesiologist Karine Meredith MD Chart Verification Airway: airway not difficult Preanesthetic Checklist . Patient's pre-procedure mental status: awake The patient was sedated prior to procedure. Current level of sedation: general anesthesia Airway not difficult - NPO status: > 8 hours Procedure Details Intubation route: oral Intubation method: direct laryngoscopy Mac 3 Number of attempts: 1 Patient status for intubation: sedated and RSI Patient position: supine Tube size: 7.0 mm Tube: standard - cuffed and cuff inflated Cord visualization: Grade I Placement confirmation method: ETCO2 monitor Breath sounds: equal bilaterally ETT to lip: 21 cm Dentition: same as baseline Complications: no complications * Anesthesia Preprocedure Evaluation - Karine Meredith MD - 10/21/2025 1:24 PM EST Images from the original note were not included. Department of Anesthesiology Pre-Procedure Evaluation Patient Name: Ibeth Sommers : 1995 Admission Date: 10/19/2025 Attending Provider: Angelia Zavala MD Date of Service: 10/21/2025 Scheduled Procedure: LAPAROSCOPY DIAGNOSTIC/EXPLORATORY ABDOMEN, N/A - Abdomen Pre-operative Diagnosis: Other ectopic without intrauterine [O00.80] Relevant Problems No relevant active problems Allergies[1] No data recorded Patient summary reviewed. Nursing notes reviewed. Pre-procedure vital signs reviewed. NPO status verified. Respiratory Cardiovascular Negatives: pacemaker Neuromuscular Positives: seizures (withdrawal seizures) GI/Hepatic/Renal Positives: pancreatitis (alcohol induced pancreatitis) Endo/MET Positives: diabetes mellitus type 2 using insulin Hem/Lymph Skel/Skin Psych Positives: bipolar disorder Additional Findings: PTSd HEENT Obstetrics Other Syndromes Additional Notes 29yo F w/ hx of Bipolar Disorder, PTSD, DMII, Polysubstance Abuse Disorder Including ETOH w/ hx of ETOH Induced Pancreatitis and hx of Withdrawal who presented to OSH for ETOH Withdrawal Sx found to have L. Ectopic Severe alcohol use disorder up until 3 years ago when she started acamprosate and AA meetings. She's maintained her sobriety for 3 years until 3 days ago when she went out with a friend for drinks. She came back home intoxicated and her partner took her to the ED to detox. Physical Exam Airway Mallampati I TM distance >3 FB Neck ROM: full regular rhythm Pulmonary (-) wheezes Abdominal Additional findings - Somnolent, able to respond to questions with repeated refocusing No past medical history on file. No past surgical history on file. No family history on file. Tobacco/Alcohol/Drug HX[2] Ht Readings from Last 1 Encounters: No data found for Ht Wt Readings from Last 1 Encounters: 10/19/25 62 kg (136 lb 11 oz) There is no height or weight on file to calculate BMI. White Blood Cell Count Date Value Ref Range Status 10/20/2025 5.7 4.0 - 11.0 Thou/uL Final Hemoglobin Date Value Ref Range Status 10/20/2025 11.7 11.7 - 15.7 g/dL Final Hematocrit Date Value Ref Range Status 10/20/2025 35.0 35.0 - 47.0 % Final Platelet Count Date Value Ref Range Status 10/20/2025 181 150 - 450 Thou/uL Final Sodium Date Value Ref Range Status 10/20/2025 131 (L) 136 - 145 mmol/L Final Potassium Date Value Ref Range Status 10/20/2025 3.6 3.4 - 5.3 mmol/L Final CO2 Date Value Ref Range Status 10/20/2025 24 22 - 33 mmol/L Final Chloride Date Value Ref Range Status 10/20/2025 95 (L) 98 - 107 mmol/L Final POC Glucose Date Value Ref Range Status 10/21/2025 233 (H) 65 - 99 mg/dL Final Blood Urea Nitrogen (BUN) Date Value Ref Range Status 10/20/2025 6 (L) 8 - 21 mg/dL Final Creatinine Date Value Ref Range Status 10/20/2025 0.40 0.40 - 1.10 mg/dL Final Calcium Date Value Ref Range Status 10/20/2025 8.7 8.7 - 10.5 mg/dL Final No results found for: ABORH , TYPE , SCREEN No results found for this or any previous visit (from the past 8760 hours). NPO Status: Anesthesia Plan ASA Score: ASA 3 - emergent Consent: The anesthetic plan and associated risks was discussed with patient. Anesthesia Plan: general general ophthalmologist Note I personally evaluated and examined the patient prior to the intra-operative phase of care. Rosanne Kim PA-C [1] No Known Allergies [2] documented in this encounter Plan of Treatment Not on file documented as of this encounter Procedures Procedure Name Priority Date/Time Associated Diagnosis Comments ANES INTUBATION Routine 10/21/2025 3:06 PM EST documented in this encounter Results * ANES INTUBATION (10/21/2025 3:06 PM EST) Narrative Karine Meredith MD - 10/21/2025 3:06 PM EST Karine Meredith MD 10/21/2025 3:07 PM Anesthesia Procedure Note - intubation Patient Name: Ibeth Sommers : 1995 Patient location: OR Procedure indications: airway protection Procedure diagnosis: Anesthesia Performed by: Anesthesiologist Karine Meredith MD Chart Verification Airway: airway not difficult Preanesthetic Checklist . Patient's pre-procedure mental status: awake The patient was sedated prior to procedure. Current level of sedation: general anesthesia Airway not difficult - NPO status: > 8 hours Procedure Details Intubation route: oral Intubation method: direct laryngoscopy Mac 3 Number of attempts: 1 Patient status for intubation: sedated and RSI Patient position: supine Tube size: 7.0 mm Tube: standard - cuffed and cuff inflated Cord visualization: Grade I Placement confirmation method: ETCO2 monitor Breath sounds: equal bilaterally ETT to lip: 21 cm Dentition: same as baseline Complications: no complications us Karine Meredith MD ID ANESTHESIA Final Result documented in this encounter Visit Diagnoses Not on filedocumented in this encounter Administered Medications Inactive Administered Medications - up to 1 most recent administrations Medication Order MAR Action Action Date Dose Rate Site lactated ringers (LR) infusion 150 mL/hr, Intravenous, Continuous, Starting on Fri10/19/25 at 2130 Rate/Dose Change 10/21/2025 3:39 PM EST 1400 mL/hr HYDROmorphone (DILAUDID) 2 mg/mL injection Intravenous, As needed, Starting on Fri10/21/25 at 1426, Anesthesia Intra-op Given 10/21/2025 2:26 PM EST 2 mg lidocaine preservative free (XYLOCAINE-MPF) 2 % injection Intravenous, As needed, Starting on Fri10/21/25 at 1419, Anesthesia Intra-op Given 10/21/2025 2:19 PM EST 3 mL norepinephrine (LEVOPHED) 160 mcg/20 mL syringe Intravenous, As needed, Starting on Fri10/21/25 at 1445, Anesthesia Intra-op Given 10/21/2025 2:45 PM EST 16 mcg norepinephrine (LEVOPHED) 8 mg in sodium chloride (NS) 0.9 % 250 mL IV infusion Intravenous, Continuous PRN, Starting on Fri10/21/25 at 1445, Anesthesia Intra-op New Bag 10/21/2025 2:45 PM EST 5 mcg/min 9.375 mL/hr ondansetron (ZOFRAN) injection Intravenous, As needed, Starting on Fri10/21/25 at 1521, Anesthesia Intra-op Given 10/21/2025 3:21 PM EST 4 mg phenylephrine (CHUCK-SYNEPHRINE) IV syringe 100 mcg/mL in 10 mL PREMIX Intravenous, As needed, Starting on Fri10/21/25 at 1440, Anesthesia Intra-op Given 10/21/2025 2:45 PM EST 300 mcg propofol (diPRIvan) injection Intravenous, As needed, Starting on Fri10/21/25 at 1420, Anesthesia Intra-op Given 10/21/2025 2:20 PM EST 200 mg rocuronium (ZEMURON) 50 mg/5mL injection Intravenous, As needed, Starting on Fri10/21/25 at 1420, Anesthesia Intra-op Given 10/21/2025 2:20 PM EST 100 mg sugammadex (BRIDION) injection Intravenous, As needed, Starting on Fri10/21/25 at 1521, Anesthesia Intra-op Given 10/21/2025 3:21 PM EST 200 mg documented in this encounter
[2025-10-23] VITALS (11 sets, daily range): BP systolic 112–166; BP diastolic 73–110; PULSE 83–132; RESP 14–22; TEMP -17.7–36.9; O2SAT 96–99; BMI 23.9
--- NOTE | 2025-10-23 12:13 | PC.NURSE ---
Upon arrival, pt minimally responsive requiring sternal rub to elicit response. Breathing equal and unlabored, vitals stable on monitor. to bedside. Placed on monitor. POC 357. BP stable.
--- NOTE | 2025-10-23 12:20 | ED_ITS ---
HPI - Alcohol General Chief Complaint: ETOH/Substance Use Stated Complaint: AMS ETOH HYPERTENSIVE Time Seen by Provider: 10/23/25 12:12 Source: EMS Mode of arrival: EMS Limitations: altered mental status History of Present Illness ED Provider: Dr. Bert Garcia HPI narrative: 29-year-old female with a history of alcohol use disorder, diabetes mellitus,pancreatitis, PTSD, polysubstance use disorder, bipolar disorder, recent [facility] admission 10/19/2025 for abdominal pain with quantitative beta-hCG of 241 and transvaginal ultrasound showing left adnexal mass suspicious for ectopic , transfer to [facility] for laparoscopic removal who presents emergency department for evaluation of altered mental status and lethargy. According to paramedics, family reports that the patient was drinking alcohol all night. Family was concerned that the patient was lethargic and her blood pressure was high therefore they called an ambulance. Paramedics noted blood pressure of 166/110 and point of care glucose of 347. Initially paramedics reported that the patient was and had a recent surgery at [facility] however this has inaccurate, patient had recent laparoscopic surgery at [facility] to remove the ectopic . The patient is not able to give a history due to her alcohol intoxication. Related Data Previous Rx's ?Medication ?Instructions ?Recorded hydroxyzine pamoate 100 mg capsule 100 mg PO QID PRN a nxiety 30 days 08/19/25 #120 caps risperidone 1 mg tablet 1 mg PO BID 30 days #60 tabs 08/19/25 sucralfate 1 gram tablet 1 g PO BIDAC 30 days #60 tab s 08/19/25 trazodone 100 mg tablet 100 mg PO BEDTIME PRN Insomn ia 30 08/19/25 days #30 tabs acetaminophen 325 mg tablet 650 mg (2 x 325 mg) PO Q6H PRN 10/19/25 Pain, Mild 1-3,Fever,Headache #10 tabs ceftriaxone 1 gram solution for 1 g IV Q24H #1 ea 10/01 08/25 injection folic acid 1 mg tablet 1 mg PO DAILY #14 tabs 10/19 hydromorphone 1 mg/mL injection 0.5 mg IVPUSH Q4H PRN Breakthrough 10/19/25 syringe Pain #10 mL insulin lispro 100 unit/mL See Protocol subcut QIDACHS #3 mL 10/19/25 subcutaneous solution (Admelog U-100 Insulin lispro) metronidazole 500 mg/100 mL in 500 mg IV Q8H #2,400 mL 10/19/25 sodium chlor(iso) intravenous piggyback ondansetron HCl (PF) 4 mg/2 mL 4 mg (2 mL) IVPUSH Q8H PRN Nausea 10/19/25 injection solution And Vomiting #20 mL pantoprazole 40 mg intravenous 40 mg IVPUSH DAILY@0630 #1 ea 10/19/25 solution (Protonix) phenobarbital 15 mg tablet 15 mg PO BID #7 tabs phenobarbital 15 mg tablet 15 mg PO DAILY #7 tabs 10/01 08/25 phenobarbital 15 mg tablet 45 mg (3 x 15 mg) PO BID #7 tabs 10/19/25 thiamine mononitrate (vit B1) 100 100 mg PO DAILY #7 t abs 10/19/25 mg tablet Allergies Allergy/AdvReac Type Severity Reaction Status Date / Time SEAFOOD Allergy Unknown UNK Uncoded 10/23/25 12:12 Review of Systems 2 Review of Systems: Yes Unobtainable due to mental status [facility] Past Medical History Medical History Abdominal pain Alcohol use disorder PTSD (post-traumatic stress disorder) Polysubstance use disorder Bipolar disorder Social History Social History Household Members: Family Household Members Other:: 3 Housing: House Do you presently have visiting nurse or other home services: No Alcohol intake: current Alcohol intake frequency: 3 or more drinks per day Alcohol type: hard liquor Comment: sitter Patient Tobacco Use Status: Current everyday Tobacco user Tobacco use type: Cigarette Cigarettes Per Day: 7 e-Cigarette/Vaping Use: Currently Using Second Hand Smoke Exposure: No Substance Use Type: Opiates and Other Advance Directives: No Advance Directives Information Provided: No service: No Sexual orientation: Straight/Heterosexual Physical Exam ED Vital Signs: Vital Signs - 24 hr 10/23/25 12:10 10/23/25 12:59 10/23/25 13:37 Temperature 0 F L 97.9 F Pulse Rate 114 H 104 H 104 H Respiratory Rate 20 22 H 18 Blood Pressure 118/77 112/81 Pulse Oximetry 96 Oxygen Delivery Method Room Air 10/23/25 14:16 10/23/25 14:28 10/23/25 14:43 Temperature 98.4 F Pulse Rate 94 86 83 Respiratory Rate 15 15 14 Blood Pressure 133/90 H 120/83 117/74 Pulse Oximetry 98 98 99 Oxygen Delivery Method Room Air Room Air Room Air 10/23/25 14:58 10/23/25 15:10 10/23/25 16:19 Temperature 97.1 F 97.0 F 97.9 F Pulse Rate 84 92 86 Respiratory Rate 14 14 14 Blood Pressure 116/73 137/97 H 131/86 Pulse Oximetry 99 99 98 Oxygen Delivery Method Room Air Room Air Room Air 10/23/25 17:31 10/23/25 22:51 Temperature 98 F Pulse Rate 94 94 Respiratory Rate 20 20 Blood Pressure 142/94 H 142/94 H Pulse Oximetry 98 98 Oxygen Delivery Method Room Air Room Air BMI result Body Mass Index 23.9 Exam: General: Lethargic, arousable, appears intoxicated Head: Normocephalic, atraumatic EENT: PERRL, sclera and conjunctiva are normal, mouth with no erythema or exudates Neck: Supple, no adenopathy Lung: breath sounds symmetric, no wheezing, no rales and no rhonchi Chest: symmetric movement, nontender Heart: regular rate and rhythm, normal S1, S2 no murmurs or rubs Abdomen: soft, nontender, patient has 3 laparoscopic puncture wounds which do not appear to be infected Neuro: Lethargic, withdraws to painful stimuli Medical Decision Making Medical Decision Making MDM Narrative: 29-year-old female with a history of alcohol use disorder, diabetes mellitus,pancreatitis, PTSD, polysubstance use disorder, bipolar disorder, recent [facility] admission 10/19/2025 for abdominal pain with quantitative beta-hCG of 241 and transvaginal ultrasound showing left adnexal mass suspicious for ectopic , transfer to [facility] for laparoscopic removal who presents emergency department for evaluation of altered mental status and lethargy secondary to alcohol intoxication. Patient initially was lethargic but then became more awake, she was uncooperative, was unable to be redirected and required chemical sedation with Haldol 10 mg IM, Versed 4 mg IM and Benadryl 50 mg IM. Differential diagnosis: ?Includes but is not limited to alcohol intoxication, drug intoxication, anxiety, anemia, electrolyte abnormalities Course: 14:28 My independent interpretation patient's laboratory evaluation is as follows: Normocytic anemia with an H&H of 11.9 and 33.9. Elevated glucose 358. Elevated AST 35. Elevated lactic acid 4.0-most likely secondary to alcohol/starvation ketosis and not DKA. COVID 19, influenza and RSV were negative. Quantitative beta-hCG was positive at 40-consistent with her recent ectopic . Ethanol level was 356. Patient's labs are consistent with her alcohol use disorder and acute alcohol intoxication. The patient is not . Patient became extremely agitated, she would not cooperate and be redirected, patient is at increased risk for self-harm therefore she was chemically restrained with Haldol 10 mg IM, Benadryl 50 mg IM and Versed 4 mg IM Patient was placed in physician observation for since she will require prolonged monitoring for her elevated alcohol level and chemical sedation. 16:46 At the end of my shift, patient is resting comfortably. Patient's care was turned over to my colleague, Dr. Neal Gutiérrez 22:51 Physician observation ended at 22:51. Patient had no documented complications during observation and was discharged home. Nurse discharge note reviewed Patient was discharged, received paperwork, patient left with her boyfriend, patient ambulatory with a steady gait, IV removed, alert and awake Differential Diagnosis Differential Diagnoses: The differential diagnosis associated with the presentation includes (See above) Admission/Observation Consideration of admission/observation: Escalation of care including admission/observation considered (Yes) Lab Data MDM Lab Attestation statement: I reviewed the patient's lab results. 10/23/25 12:10/23/25 12:26 Labs: Lab Results 10/23/25 10/23/25 10/23/25 Range/Units 12:25 12:26 12:33 WBC 7.2 (4.8-10.8) X10*3/uL RBC 3.91 L (4.20-5.50) X10*6/uL Hgb 11.9 L (12.0-16.0) g/dl Hct 33.9 L (37.0-47.0) % MCV 86.7 (80.0-98.0) fL MCH 30.4 (27.0-33.0) pg MCHC 35.1 H (31.0-35.0) g/dl RDW 12.0 (11.0-16.0) % Plt Count 260 (160-400) X10*3/uL MPV 9.9 (9.4-12.3) fL Immature Gran % (Auto) 0.3 (0.0-0.4) % Neut % (Auto) 65.7 (45-73) % Lymph % (Auto) 28.5 (20-40) % [place] % (Auto) 3.5 (2-11) % Eos % (Auto) 1.4 (0-4) % Baso % (Auto) 0.6 (0-2) % Lymph # (Auto) 2.1 (1.2-4.9) X10*3/uL [place] # (Auto) 0.3 (0.1-1.2) X10*3/uL Eos # (Auto) 0.1 (0.0-0.4) X10*3/uL Baso # (Auto) 0.0 (0.0-0.2) X10*3/uL Abs Immat Gran (auto) 0.02 (0.00-0.03) X10*3/uL Absolute Neuts (auto) 4.7 (2.0-8.3) x10*3/uL Absolute Nucleated RBC 0.000 (0.0-0.012) X10*3/uL Nucleated RBC % (auto) 0.0 (0.0-0.2) /100WBC Sodium 139 (135-145) mmol/L Potassium 3.7 (3.3-5.1) mmol/L Chloride 102 (96-108) mmol/L Carbon Dioxide 21 L (22-29) mmol/L Anion Gap 20 (12-20) BUN 4 L (9-16) mg/dL Creatinine 0.55 (0.5-1.4) mg/dL Estim Creat Clear Calc 135.7 Estimated GFR > 60 Random Glucose 358 H* (60-115) mg/dL Lactic Acid 4.0 H* (0.5-2.0) mmol/L Lactic Acid F/U @ 2Hr (0.5-2.0) mmol/L Lactic Acid F/U @ 4Hr (0.5-2.0) mmol/L Calcium 8.8 (8.4-10.2) mg/dL Magnesium 1.9 (1.6-2.6) mg/dL Total Bilirubin 0.1 (0.0-1.0) mg/dL AST 35 H (5-31) U/L ALT 26 (0-31) U/L Alkaline Phosphatase 105 (39-117) U/L Total Protein 7.7 (6.5-8.0) g/dL Albumin 4.5 (3.5-5.0) g/dL Lipase 8 (8-78) U/L TSH 0.12 L (0.32-4.0) uIU/mL Free T4 1.33 (0.71-1.85) ng/dL Beta HCG, Quant 40 mIU/mL Urine Color Urine Appearance Urine pH (5.0-9.0) Ur Specific [place] (1.005-1.025) Urine Protein (Neg-Trace) mg/dL Urine Glucose (UA) (Negative) mg/dL Urine Ketones (Negative) mg/dL Urine Blood (Negative) Urine Nitrite (Negative) Ur Leukocyte Esterase (Negative) Urine RBC (0-2) /HPF Urine WBC (0-5) /HPF Ur Squamous Epith Cells (0-2) /HPF Urine Bacteria (None Seen) Hyaline Casts (0-2) /LPF Urine Opiates Screen (Not Detect) Ur Buprenorphine Scrn (Not Detect) ng/mL Ur Oxycodone Screen (Not Detect) ng/mL Urine Methadone Screen (Not Detect) ng/mL Urine Fentanyl Screen (Not Detect) Ur Barbiturates Screen (Not Detect) Ur Phencyclidine Scrn (Not Detect) Ur Amphetamines Screen (Not Detect) U Benzodiazepines Scrn (Not Detect) Urine Cocaine Screen (Not Detect) U Marijuana (THC) Screen (Not Detect) Ethyl Alcohol 356 H* mg/dL Influenza Type A (PCR) NEGATIVE (Negative) Influenza Type B (PCR) NEGATIVE (Negative) RSV RNA Qual (PCR) NEGATIVE (Negative) SARS-CoV-2 RNA (RT-PCR) NEGATIVE (Negative) 10/23/25 10/23/25 10/23/25 Range/Units 12:46 14:57 18:05 WBC (4.8-10.8) X10*3/uL RBC (4.20-5.50) X10*6/uL Hgb (12.0-16.0) g/dl Hct (37.0-47.0) % MCV (80.0-98.0) fL MCH (27.0-33.0) pg MCHC (31.0-35.0) g/dl RDW (11.0-16.0) % Plt Count (160-400) X10*3/uL MPV (9.4-12.3) fL Immature Gran % (Auto) (0.0-0.4) % Neut % (Auto) (45-73) % Lymph % (Auto) (20-40) % [place] % (Auto) (2-11) % Eos % (Auto) (0-4) % Baso % (Auto) (0-2) % Lymph # (Auto) (1.2-4.9) X10*3/uL [place] # (Auto) (0.1-1.2) X10*3/uL Eos # (Auto) (0.0-0.4) X10*3/uL Baso # (Auto) (0.0-0.2) X10*3/uL Abs Immat Gran (auto) (0.00-0.03) X10*3/uL Absolute Neuts (auto) (2.0-8.3) x10*3/uL Absolute Nucleated RBC (0.0-0.012) X10*3/uL Nucleated RBC % (auto) (0.0-0.2) /100WBC Sodium (135-145) mmol/L Potassium (3.3-5.1) mmol/L Chloride (96-108) mmol/L Carbon Dioxide (22-29) mmol/L Anion Gap (12-20) BUN (9-16) mg/dL Creatinine (0.5-1.4) mg/dL Estim Creat Clear Calc Estimated GFR Random Glucose (60-115) mg/dL Lactic Acid (0.5-2.0) mmol/L Lactic Acid F/U @ 2Hr 3.6 H* (0.5-2.0) mmol/L Lactic Acid F/U @ 4Hr 2.0 (0.5-2.0) mmol/L Calcium (8.4-10.2) mg/dL Magnesium (1.6-2.6) mg/dL Total Bilirubin (0.0-1.0) mg/dL AST (5-31) U/L ALT (0-31) U/L Alkaline Phosphatase (39-117) U/L Total Protein (6.5-8.0) g/dL Albumin (3.5-5.0) g/dL Lipase (8-78) U/L TSH (0.32-4.0) uIU/mL Free T4 (0.71-1.85) ng/dL Beta HCG, Quant mIU/mL Urine Color Yellow Urine Appearance Clear Urine pH 7.5 (5.0-9.0) Ur Specific [place] 1.010 (1.005-1.025) Urine Protein Negative (Neg-Trace) mg/dL Urine Glucose (UA) >=1000 H (Negative) mg/dL Urine Ketones Negative (Negative) mg/dL Urine Blood Large (3+) H (Negative) Urine Nitrite Negative (Negative) Ur Leukocyte Esterase Negative (Negative) Urine RBC 0-2 (0-2) /HPF Urine WBC 0-5 (0-5) /HPF Ur Squamous Epith Cells 3-5 (0-2) /HPF Urine Bacteria None Seen (None Seen) Hyaline Casts 0-2 (0-2) /LPF Urine Opiates Screen Not Detected (Not Detect) Ur Buprenorphine Scrn Not Detected (Not Detect) ng/mL Ur Oxycodone Screen Not Detected (Not Detect) ng/mL Urine Methadone Screen Not Detected (Not Detect) ng/mL Urine Fentanyl Screen Not Detected (Not Detect) Ur Barbiturates Screen POSITIVE H (Not Detect) Ur Phencyclidine Scrn Not Detected (Not Detect) Ur Amphetamines Screen Not Detected (Not Detect) U Benzodiazepines Scrn Not Detected (Not Detect) Urine Cocaine Screen Not Detected (Not Detect) U Marijuana (THC) Screen Not Detected (Not Detect) Ethyl Alcohol mg/dL Influenza Type A (PCR) (Negative) Influenza Type B (PCR) (Negative) RSV RNA Qual (PCR) (Negative) SARS-CoV-2 RNA (RT-PCR) (Negative) External Record Review External record reviewed: Inpatient record Medications Administered Discontinued Medications Generic Name Dose Route Start Last Admin Trade Name Freq PRN Reason Stop Dose Admin Acetaminophen 975 mg 10/23/25 21:05 10/23/25 21:20 Acetaminophen 325 Mg Tablet PO 10/23/25 21:06 975 mg ONCE ONE Administration Diazepam 4 mg 10/23/25 18:34 10/23/25 19:16 Diazepam 2 Mg Tablet PO 10/23/25 18:35 Not Given ONCE ONE Diazepam 4 mg 10/23/25 20:44 10/23/25 20:52 Diazepam 2 Mg Tablet PO 10/23/25 20:45 4 mg ONCE ONE Administration Diphenhydramine HCl 50 mg 10/23/25 14:01 10/23/25 14:09 Diphenhydramine Hcl 50 Mg/Ml Vial IM 10/23/25 14:02 50 mg ONCE ONE Administration Haloperidol Lactate 10 mg 10/23/25 14:01 10/23/25 14:10 Haloperidol Lactate 5 Mg/Ml Vial IM 10/23/25 14:02 10 mg ONCE ONE Administration Sodium Chloride 1,000 mls @ 999 mls/hr 10/23/25 12:21 10/23/25 14:14 Ns IV 10/23/25 13:21 Infused .Q1H1M STA Infusion Sodium Chloride 1,000 mls @ 999 mls/hr 10/23/25 14:27 10/23/25 16:32 Ns IV 10/23/25 15:27 Infused .Q1H1M STA Infusion Sodium Chloride 1,000 mls @ 999 mls/hr 10/23/25 14:27 10/23/25 16:32 Ns IV 10/23/25 15:27 Infused .Q1H1M STA Infusion Midazolam HCl 4 mg 10/23/25 13:07 10/23/25 13:12 Midazolam Hcl 2 Mg/2 Ml Vial IVPUSH 10/23/25 13:08 4 mg ONCE ONE Administration Midazolam HCl 4 mg 10/23/25 14:02 10/23/25 14:09 Midazolam Hcl 2 Mg/2 Ml Vial IM 10/23/25 14:03 4 mg ONCE ONE Administration Oxycodone HCl 2.5 mg 10/23/25 21:05 10/23/25 21:20 Oxycodone Hcl Immed Release 5 Mg Tablet PO 10/23/25 21:06 2.5 mg ONCE ONE Administration Critical Care Time Critical Care Time Critical Care Time: Yes Total Critical Care Time: 75 Attestation: Critical Care: The patient was critically ill with a high probability of imminent or life threatening deterioration. I spent greater than 30 minutes of discontinuous time evaluating the patient,delivering critical care at the bedside, discussing and evaluating pertinent data with consultants. Critical care time does not include time spent performing separately billable procedures or teaching. Total time spent performing critical care was 75 minutes. Discharge Plan Discharge Clinical Impression: Acute alcohol intoxication, Agitation Patient Disposition: Home, Self-Care Instructions: Alcohol Intoxication (DC), Abuse of Alcohol (DC) Additional Instructions: You will be discharge accompanied by your boyfriend Prescriptions: No Action hydroxyzine pamoate 100 mg capsule 100 mg PO QID PRN (Reason: anxiety) 30 Days Qty: 120 0RF sucralfate 1 gram Tablet 1 g PO BIDAC 30 Days Qty: 60 0RF trazodone 100 mg Tablet 100 mg PO BEDTIME PRN (Reason: Insomnia) 30 Days Qty: 30 0RF risperidone 1 mg tablet 1 mg PO BID 30 Days Qty: 60 0RF acetaminophen 325 mg Tablet 650 mg PO Q6H PRN (Reason: Pain, Mild 1-3,Fever,Headache) Qty: 10 0RF metronidazole in NaCl (iso-os) 500 mg/100 mL Piggyback 500 mg IV Q8H Qty: 2400 0RF ceftriaxone 1 gram Recon Soln 1 g IV Q24H Qty: 1 0RF phenobarbital 15 mg Tablet 45 mg PO BID Qty: 7 0RF phenobarbital 15 mg Tablet 15 mg PO BID Qty: 7 0RF phenobarbital 15 mg Tablet 15 mg PO DAILY Qty: 7 0RF hydromorphone 1 mg/mL Syringe 0.5 mg IVPUSH Q4H PRN (Reason: Breakthrough Pain) Qty: 10 0RF Protocol: Hold for RR < HOLD and contact provider for RR < (bpm): 12 Rx Instructions: Partial Fill upon patient request. pantoprazole [Protonix] 40 mg Recon Soln 40 mg IVPUSH DAILY@0630 Qty: 1 0RF folic acid 1 mg Tablet 1 mg PO DAILY Qty: 14 0RF insulin lispro [Admelog U-100 Insulin lispro] 100 unit/mL Solution See Protocol subcut QIDACHS Qty: 3 0RF Protocol: Insulin Correction Scale Less than or equal to 110 ---- Give (units): 0 111 to 150 Give (units): 0 151 to 200 Give (units): 2 201 to 250 Give (units): 4 251 to 300 Give (units): 6 301 to 350 Give (units): 8 Greater than 350 Give (units): 10 Call MD if Blood Glucose > : 350 ondansetron HCl (PF) 4 mg/2 mL Solution 4 mg IVPUSH Q8H PRN (Reason: Nausea And Vomiting) Qty: 20 0RF thiamine mononitrate (vit B1) 100 mg Tablet 100 mg PO DAILY Qty: 7 0RF Interventions: ED Discharge Assessment Last Done: 10/23/25 22:51 Discharge Date/Time: 10/23/25 22:55 Print Language: Greenlandic
--- NOTE | 2025-10-23 12:21 | ECG_ITS ---
Test Reason : HYPERGLYCEMIA Blood Pressure : */* mmHG Vent. Rate : 106 BPM Atrial Rate : 106 BPM P-R Int : 136 ms QRS Dur : 86 ms QT Int : 356 ms P-R-T Axes : 56 52 23 degrees QTcB Int : 472 ms Sinus tachycardia Otherwise normal ECG When compared with ECG of 19-Oct-2025 01:43, No significant change was found Referred By: Bert Garcia Electronically Signed By: Markus Yen
--- OUTSIDE RECORDS SUMMARY | 2025-10-23 12:28 | XMS_ITS | Clinical Summary ---
Author Organization [facility] Address [address] [place] [address] Phone Care Team Providers Care Administrative Intern Name Role Phone StephenMichael MARKO Primary Care Provider [phone] Allergies Active Allergy Reactions Criticality Noted Date [...] Diagnosed Date Abdominal pain 07/20/2025 Alcoholic hepatitis ([facility] V28) 07/20/2025 Alcoholic pancreatitis 07/20/2025 Anxiety 07/20/2025 Current smoker 07/20/2025 Influenza 07/20/2025 Marijuana use 07/20/2025 Underweight 07/20/2025 Alcohol dependence, uncompli cated ([facility] V24, [facility] V28) 09/04/2023 Bipolar I disorder ([facility] V24, [facility] V28) Generalized anxiety disorder 09/04/2023 GERD with esophagitis 12/14/2022 Immunizations Immunization Administration Dates Next Due Influenza Quadrivalent, 0.5m l, preservative free (Fluarix; FluLaval; Fluzone) ages 6mo and older (Afluria) 3yo and older 12/01/2021 Tdap Tetanus diptheria acell ular pertussis (Boostrix; Adacel) 7yo and older 02/01/2020 Surgical History Surgery Date Site/Laterality Comments TONSILLECTOMY Medical History Medical History Date Comments Alcohol abuse DM (diabetes mellitus) ([facility] V24, [facility] V28 ) Asthma Social History Tobacco Use [...] to complete this topic Insurance [place] Advance Directives Documents on File Type Date Recorded Patient Program Project Manager Expl anation Health Care Decision (hx) 08/01/2022 [...] (hx) 08/01/2022 AD MALIK DIRECTIVE Care Teams Administrative Intern Relationship Specialty Start Date End Date Michael Mitchell NP [address] [place] [address] PCP - General Family Medicine 07/26/25
--- OUTSIDE RECORDS SUMMARY | 2025-10-23 12:28 | XMS_ITS | Encounter Summary ---
Author Organization [employer] Address [address] [place] [address] Care Team Providers Care Deputy Chief Counsel Name Role Phone Edyta Lopez Unavailable Unavailable Fermin Scherer Unavailable Unavailable Encounter Details Date Type Department Care Team (Late st Contact Info) Description 10/20/2025 Patient Outreach [facility] [address] [place] [phone] Rosemary Lam Social History Tobacco Use Types Packs/Day Years Used Date Smoking Tobacco: Never Assessed Comments Unknown Sex and Gender Information Value Date Recorded Sex Assigned at Not on file Legal Sex Female 9:28 PM EDT Gender Identity Not on file Sexual Orientation Not on file documented as of this encounter Progress Notes * Rosemary Lam - 10/20/2025 11:16 AM EST Patient identified through ADT feed. Patient admitted 10/19/25 and discharged 10/19/25 from [facility]. Reassigned to Edyta [facility] and Fermin [facility]. documented in this encounter Plan of Treatment Not on file documented as of this encounter Visit Diagnoses Not on filedocumented in this encounter Care Teams Deputy Chief Counsel Relationship Specialty Start Date End Date Edyta Lopez 10/20/25 Fermin Scherer 10/20/25 documented as of this encounter
--- OUTSIDE RECORDS SUMMARY | 2025-10-23 12:28 | XMS_ITS | Encounter Summary ---
Author Organization [employer] Address [address] [place] [address] Care Team Providers Care Project Buyer Name Role Phone Edyta Lopez Unavailable Unavailable Fermin Scherer Unavailable Unavailable Encounter Details Date Type Department Care Team (Late st Contact Info) Description 10/20/[address] [facility] [address] [place] [phone] Rosemary Lam Social History Tobacco Use Types [...] on filedocumented in this encounter Care Teams Project Buyer Relationship Specialty Start Date End Date Edyta Lopez 10/20/25 Fermin Scherer 10/20/25 documented as of this encounter
--- OUTSIDE RECORDS SUMMARY | 2025-10-23 12:28 | XMS_ITS | Clinical Summary ---
Author Organization [facility] Address [address] [place] [address] Care Team Providers Care Forepart Rounder Name Role Phone Unavailable Primary Care Provider Unavailabl e Allergies No known active allergies Medications acetaminophen (TYLENOL) 325 MG tabletIndications :Other ectopic without intrauterine Take 3 tablets (975 mg total) by mouth 4 times daily (every 6 hours) as needed for mild pain. 5 11/21/20 25 Active cloNIDine (CATAPRES) 0.1 MG tabletIndications :Other ectopic without intrauterine Take 1 tablet (0.1 mg total) by mouth 3 (three) times a day. 90 tablet 5 11/21/20 25 Active gabapentin (NEURONTIN) 800 MG tabletIndications :Other ectopic without intrauterine Take 1 tablet (800 mg total) by mouth 3 (three) times a day. 90 tablet 5 11/21/20 25 Active ibuprofen (MOTRIN) 800 mg tabletIndications :Other ectopic without intrauterine Take 1 tablet (800 mg total) by mouth 3 times daily (every 8 hours) as needed for mild pain. 30 tablet 5 11/21/20 25 Active lidocaine (LIDODERM) 5 % patchIndications: Other ectopic without intrauterine Place 1 patch on the skin daily. Apply patch and leave on for 12 hours then remove. Patch may remain on skin for 12 hours per day. 30 patch 5 11/22/20 25 Active OXcarbazepine (TRILEPTAL) 600 MG tabletIndications :Other ectopic without intrauterine Take 1 tablet (600 mg total) by mouth 2 (two) times a day. 60 tablet 5 11/21/20 25 Active risperiDONE (RisperDAL) 1 MG tabletIndications :Other ectopic without intrauterine Take 1 tablet (1 mg total) by mouth 2 (two) times a day. 60 tablet 5 11/21/20 25 Active traZODone (DESYREL) 100 MG tabletIndications :Other ectopic without intrauterine Take 1 tablet (100 mg total) by mouth nightly. 30 tablet 5 11/21/20 25 Active multivitamin with minerals Tab tabletIndications :Other ectopic without intrauterine Take 1 tablet by mouth daily. 30 tablet 5 11/22/20 25 Active thiamine mononitrate (VITAMIN B-1) 100 MG tabletIndications :Other ectopic without intrauterine Take 2 tablets (200 mg total) by mouth daily. 60 tablet 5 11/22/20 25 Active folic acid (FOLVITE) 1 MG tabletIndications :Other ectopic without intrauterine Take 1 tablet (1 mg total) by mouth daily. 30 tablet 5 11/22/20 25 Active sucralfate (CARAFATE) 1 GM/10ML suspensionIndicat ions:Other ectopic without intrauterine Take 10 mL (1 g total) by mouth 4 (four) times a day before meals and nightly. On an empty stomach. 1200 mL 5 11/21/20 25 Active Active Problems Problem Noted Date Diagnosed Date Liver mass 10/21/2025 Overview (10/21/2025): 4.5 cm echogenic mass in the right hepatic lobe which is incompletely characterized. Further evaluation with MRI abdomen liver protocol is recommended for definitive characterization. Incidentally found during admission for pain due to ectopic . Will need outpatient follow up of mass with MRI Assessment & Plan (10/21/2025 6:09 PM EST): -Patient noted to have 4.5 cm echogenic mass in the right hepatic lobe - Will get MRI abdomen liver protocol for definitive characterization will consult GI for above Abdominal pain of multiple sites 10/19/2025 Assessment & Plan (10/21/2025 6:09 PM EST): -Status post diagnostic laparoscopy - Status post left salpingectomy for her ectopic Assessment & Plan (10/20/2025 4:50 PM EST): -Pending transvaginal ultrasound and abdominal ultrasound for cholecystitis evaluation - Patient was complaining of abdominal pain and was on IV Dilaudid until this afternoon and changed to subcu Dilaudid Patient was placed n.p.o. for abdominal ultrasound Other ectopic without intrauterine pre gnancy 10/19/2025 Assessment & Plan (10/21/2025 6:09 PM EST): -Status post diagnostic laparoscopy - Status post left salpingectomy for her ectopic Assessment & Plan (10/20/2025 4:50 PM EST): -Pending transvaginal ultrasound and abdominal ultrasound for cholecystitis evaluation - Patient was complaining of abdominal pain and was on IV Dilaudid until this afternoon and changed to subcu Dilaudid Patient was placed n.p.o. for abdominal ultrasound Bipolar disorder 10/19/2025 Assessment & Plan (10/21/2025 6:09 PM EST): -Patient is not under influence of any alcohol and therefore CIWA discontinued, diazepam discontinued - I also discontinued her home meds including Trileptal, trazodone and gabapentin yesterday given her drowsy status since she received phenobarb and Valium at outside hospital for possible withdrawal - I will resume this medication tomorrow as patient underwent laparoscopic intervention today for her ectopic Assessment & Plan (10/20/2025 4:50 PM EST): -Patient lethargic on exam but was able to protect her airway saturating well on room air - Of note she was receiving phenobarbital at outside hospital along with IV Valium and Benadryl - Of note overnight PLASTER PATTERN CASTER was called due to lethargy after IV diazepam was administered and patient ended up receiving Narcan and woke up - Appreciate addiction medicine recommendation - Will start patient on oral as needed as needed diazepam alcohol withdrawal CIWA protocol - Will continue telemetry monitoring -will hold off gabapenti, oxcarbazepine for now given lethargic status in setting of DUAL phenobarbital and diazepam use PTSD (post-traumatic stress disorder) 10/19/2025 Assessment & Plan (10/21/2025 6:09 PM EST): -Patient is not under influence of any alcohol and therefore CIWA discontinued, diazepam discontinued - I also discontinued her home meds including Trileptal, trazodone and gabapentin yesterday given her drowsy status since she received phenobarb and Valium at outside hospital for possible withdrawal - I will resume this medication tomorrow as patient underwent laparoscopic intervention today for her ectopic Assessment & Plan (10/20/2025 4:50 PM EST): -Patient lethargic on exam but was able to protect her airway saturating well on room air - Of note she was receiving phenobarbital at outside hospital along with IV Valium and Benadryl - Of note overnight PLASTER PATTERN CASTER was called due to lethargy after IV diazepam was administered and patient ended up receiving Narcan and woke up - Appreciate addiction medicine recommendation - Will start patient on oral as needed as needed diazepam alcohol withdrawal CIWA protocol - Will continue telemetry monitoring -will hold off gabapenti, oxcarbazepine for now given lethargic status in setting of DUAL phenobarbital and diazepam use Resolved Problems Problem Noted Date Diagnosed Date Resolved Date Alcohol withdrawal with comp lication with inpatient treatment 10/19/2025 10/21/2025 Assessment & Plan (10/21/2025 6:09 PM EST): -Patient is not under influence of any alcohol and therefore CIWA discontinued, diazepam discontinued - I also discontinued her home meds including Trileptal, trazodone and gabapentin yesterday given her drowsy status since she received phenobarb and Valium at outside hospital for possible withdrawal - I will resume this medication tomorrow as patient underwent laparoscopic intervention today for her ectopic Assessment & Plan (10/20/2025 4:50 PM EST): -Patient lethargic on exam but was able to protect her airway saturating well on room air - Of note she was receiving phenobarbital at outside hospital along with IV Valium and Benadryl - Of note overnight PLASTER PATTERN CASTER was called due to lethargy after IV diazepam was administered and patient ended up receiving Narcan and woke up - Appreciate addiction medicine recommendation - Will start patient on oral as needed as needed diazepam alcohol withdrawal CIWA protocol - Will continue telemetry monitoring -will hold off gabapenti, oxcarbazepine for now given lethargic status in setting of DUAL phenobarbital and diazepam use Encounters Date Type Department Care Team Description 10/21/2025 2:15 PM EST Anesthesia Event [facility] Perioperative Surgical Services [address] [facility] [place] [place] [address] Karine Meredith MD Gordon, Jennifer L, PAYeimiC 10/21/2025 1:50 PM EST - 10/21/2025 4:12 PM EST Surgery [facility] Perioperative Surgical Services [address] [facility] [place] [address] Khoa Parrish MD LAPAROSCOPY DIAGNOSTIC, LEFT SALPINGECTOMY 10/19/2025 8:01 PM EST - 10/22/2025 2:14 PM EST Hospital Encounter [place] [id number] [address] [facility] [place] [address] Jose Trejo MD Bowers, David K, MD Khemani, Lavina, MD Paulo, Dillon, MD Other ectopic without intrauterine (Primary Dx) Discharge Disposition: Home or Self Care from Last 3 Months Social History Tobacco [...] any time in the [facility], were you homeless or living in a fci (including now)? Patient declined 10/21/[address] [facility] Utilities Answer Date Recorded In the past 12 months has th e electric, gas, oil, or water company threatened to shut off services in your home? Patient declined 10/21/2025 Comments No Sex and Gender Information Value Date Recorded Sex Assigned at Not on file Legal Sex Female 4:49 PM EST Gender Identity Not on file Sexual Orientation Not on file Last Filed Vital Signs Vital Sign Reading [...] - - Body Mass Index - - Plan of Treatment Health Maintenance Due Date Last Done Comments Hepatitis C Virus Screening 1995 HIV Screening 2008 DTaP/Tdap/Td Vaccines (1 - Tdap) 2014 Hepatitis B Vaccines (1 of 3 - 19+ 3-dose series) 2014 Pap Smear (Ages 21-65) 2016 Influenza Vaccine 07/01/2025 COVID-19 Vaccine (2023-2 5 season) 2025 HPV Vaccines (No Doses Required) Completed Pneumococcal Vaccine: Pediat cayla (0-5 Years) and At-Risk Patients (6 to 49 Years) Aged Out No longer eligible b ased on patient's age to complete this topic Procedures Procedure Name Priority Date/Time Associated Diagnosis Comments POCT GLUCOSE, FINGERSTICK (CHARGE) Routine 10/22/2025 11:39 AM EST POCT GLUCOSE, FINGERSTICK (CHARGE) Routine 10/22/2025 7:44 AM EST COMPLETE BLOOD COUNT, WITHOUT DIFFERENTIAL Routine 10/22/2025 7:17 AM EST HEMOGLOBIN A1C WITH ESTIMATED AVERAGE GLUCOSE Routine 10/22/2025 7:17 AM EST POCT GLUCOSE, FINGERSTICK (CHARGE) Routine 10/22/2025 2:17 AM EST POCT GLUCOSE, FINGERSTICK (CHARGE) Routine 10/22/2025 12:20 AM EST POCT GLUCOSE, FINGERSTICK (CHARGE) Routine 10/21/2025 8:26 PM EST POCT GLUCOSE, FINGERSTICK (CHARGE) Routine 10/21/2025 6:14 PM EST POCT GLUCOSE, FINGERSTICK (CHARGE) Routine 10/21/2025 3:52 PM EST ISTAT GLUCOSE (NO CHARGE) Routine 10/21/2025 3:17 PM EST ANES INTUBATION Routine 10/21/2025 3:06 PM EST POCT GLUCOSE, FINGERSTICK (CHARGE) Routine 10/21/2025 11:45 AM EST US TRANSABDOMINAL LESS 14 WEEKS + US PREG TRANSVAGINAL W/LIMITED DOPPLER Routine 10/21/2025 9:43 AM EST POCT GLUCOSE, FINGERSTICK (CHARGE) Routine 10/21/2025 8:00 AM EST BASIC METABOLIC PANEL Routine 10/21/2025 7:40 AM EST BETA-HCG, QUANTITATIVE Routine 7:40 AM EST POCT GLUCOSE, FINGERSTICK (CHARGE) Routine 10/21/2025 4:49 AM EST POCT GLUCOSE, FINGERSTICK (CHARGE) Routine 10/21/2025 12:53 AM EST OSMOLALITY Routine 10/20/2025 10:25 PM EST COMPREHENSIVE METABOLIC PANEL Routine 10/20/2025 10:25 PM EST COMPLETE BLOOD COUNT, WITH DIFFERENTIAL Routine 10/20/2025 10:25 PM EST B-HYDROXYBUTYRATE Routine 10/20/2025 10: 25 PM EST POCT GLUCOSE, FINGERSTICK (CHARGE) Routine 10/20/2025 9:27 PM EST POCT GLUCOSE, FINGERSTICK (CHARGE) Routine 10/20/2025 9:09 PM EST EEG ROUTINE Routine 10/20/2025 7:20 PM EST POCT GLUCOSE, FINGERSTICK (CHARGE) Routine 10/20/2025 4:59 PM EST US ABDOMEN-LIMITED Routine 10/20/2025 4: 15 PM EST POCT GLUCOSE, FINGERSTICK (CHARGE) Routine 10/20/2025 11:40 AM EST POCT GLUCOSE, FINGERSTICK (CHARGE) Routine 10/20/2025 8:15 AM EST AMMONIA LEVEL Routine 10/20/2025 4:59 AM EST COMPREHENSIVE METABOLIC PANEL Routine 10/20/2025 4:59 AM EST COMPLETE BLOOD COUNT, WITH DIFFERENTIAL Routine 10/20/2025 4:59 AM EST POCT GLUCOSE, FINGERSTICK (CHARGE) Routine 10/20/2025 4:32 AM EST POCT GLUCOSE, FINGERSTICK (CHARGE) Routine 10/20/2025 2:02 AM EST BETA-HCG, QUANTITATIVE Routine 1:00 AM EST BETA-HCG, QUALITATIVE, REFLEX QUANT Routine 10/20/2025 1:00 AM EST LIPASE Routine 10/20/2025 1:00 AM EST B-HYDROXYBUTYRATE Routine 10/20/2025 1:0 0 AM EST COMPREHENSIVE METABOLIC PANEL Routine 10/20/2025 1:00 AM EST COMPLETE BLOOD COUNT, WITH DIFFERENTIAL Routine 10/20/2025 1:00 AM EST POCT GLUCOSE, FINGERSTICK (CHARGE) Routine 10/20/2025 12:44 AM EST POCT GLUCOSE, FINGERSTICK (CHARGE) Routine 10/19/2025 9:25 PM EST from Last 3 Months Results * (ABNORMAL) POCT Glucose, Fingerstick (10/22/2025 11:39 AM EST) Only the most recent of20 resultswithin the time period is included. POC Glucose 247(H) 65 - 99 mg/dL 10/22/2025 11:39 AM EST Blood specimen / Unknown 10/22/2025 11:39 AM EST 10/22/2025 11:40 AM EST us Jose Trejo MD POINT OF CARE TEST ORDERABLES Fi nal Result HOSPITAL LAB See Below * (ABNORMAL) Hemoglobin A1c with Estimated Average Glucose (AM) (10/22/2025 7:17 AM EST) Pathologist [facility] Hemoglobin A1C 9.5(H) <5.7 % 10/22/2025 9:07 AM [facility] Comment: A1c% Interpretation 5.7 - 6.0 Increase risk of diabetes 6.1 - 6.4 Higher risk of diabetes > or = 6.5 Consistent with diabetes Diabetes Care, 33(Supp 1):S1-S61, 2010 Estimated Average Glucose 226 mg/dL 10/22/2025 9:07 AM [facility] Blood Blood specimen / Unknown 10/22/2025 7:17 AM EST 10/22/2025 7:27 AM EST Khoa Parrish MD LAB BLOOD [place]AB[place] [address], [place] [address] * (ABNORMAL) COMPLETE BLOOD COUNT, WITHOUT DIFFERENTIAL (10/22/2025 7:17 AM EST) Pathologist [facility] White Blood Cell Count 5.5 4.0 - 11.0 Thou/uL 10/22/2025 8:25 AM [facility] Platelet Count 136(L) 150 - 450 Thou/uL 10/22/2025 8:25 AM [facility] Hemoglobin 11.5(L) 11.7 - 15.7 g/dL 10/22/2025 8:25 AM [facility] Hematocrit 33.7(L) 35.0 - 47.0 % 10/22/2025 8:25 AM [facility] Red Blood Cell Count 3.77(L) 4.00 - 5.40 Mil/uL 10/22/2025 8:25 AM [facility] MCV 89 80 - 100 fL 10/22/2025 8:25 AM [facility] MCH 30.5 26.0 - 34.0 pg 10/22/2025 8:25 AM [facility] MCHC 34.1 30.0 - 36.0 g/dL 10/22/2025 8:25 AM [facility] RDW 11.9 11.5 - 14.5 % 10/22/2025 8:25 AM [facility] MPV 10.7 7.5 - 12.5 fL 10/22/2025 8:25 AM [facility] Blood Blood specimen / Unknown 10/22/2025 7:17 AM EST 10/22/2025 7:27 AM EST us Khoa Parrish MD LAB BLOOD ORDERABLES Final Resul t Performing Organization Address [facility] [place] [address], [place] [address] * (ABNORMAL) ISTAT Glucose (10/21/2025 3:17 PM EST) [facility] Glucose, I-STAT 245(H) 65 - 99 mg/dL 10/21/2025 3:22 PM EST Blood specimen / Unknown 10/21/2025 3:17 PM EST 10/21/2025 3:22 PM EST us Angelia Zavaal MD POCT ORDERABLES - DEVICE Final Result HOSPITAL LAB See Below * ANES INTUBATION (10/21/2025 3:06 PM EST) [...] Complications: no complications us Karine Meredith MD [place] ANESTHESIA Final Result * US OB Transabdominal < 14 weeks [...] canal. Interpreted by: José Manuel Fried DO Animation Artist I personally reviewed the images and the resident's preliminary report and AGREE with the report as it is now presented ([email or web address]). Narrative 10/21/2025 10:32 AM EST EXAMINATION: US SEAM STAYER PELVIS TRANSABDOMINAL COMPLETE, US SEAM STAYER TRANSVAGINAL WITH COMPLETE DOPPLER CLINICAL INFORMATION: Concerns [...] Micki Menezes MD - 10/21/2025 EXAMINATION: US SEAM STAYER PELVIS TRANSABDOMINAL COMPLETE, US SEAM STAYER TRANSVAGINAL WITH COMPLETE DOPPLER CLINICAL INFORMATION: Concerns [...] canal. Interpreted by: José Manuel Fried DO Animation Artist I personally reviewed the images and the resident's preliminary report and AGREE with the report as it is now presented (RADPAL1). us Juan Mayorga MD IMG OB US ORDERABLES Final Res ult * (ABNORMAL) Beta-hCG, Quantitative (10/21/2025 7:40 AM EST) Only the most recent of2 resultswithin the time period is included. Beta-hCG, Quantitative 159(H) <5 mIU/mL 10/21/2025 8:50 AM [facility] Blood Blood specimen / Unknown 10/21/2025 7:40 AM EST 10/21/2025 8:08 AM EST Lisy Neumann MD LAB BLOOD [place]AB[place] [address], [place] [address] * (ABNORMAL) Basic Metabolic Panel (10/21/2025 7:40 AM EST) Pathologist [facility] Glucose Add-on cannot be performed, specimen stability . 65 - 99 mg/dL 10/21/2025 1:44 PM [facility] Blood Urea Nitrogen (BUN) 6(L) 8 - 21 mg/dL 10/21/2025 2:01 PM [facility] Creatinine 0.47 0.40 - 1.10 mg/dL 10/21/2025 2:01 PM [facility] eGFR >90 >59 10/21/2025 2:01 PM [facility] Comment:CKD-EPI (2020) in mL /min/1.73 sq meters. Sodium Add-on cannot be performed, specimen stability . 136 - 145 mmol/L 10/21/2025 1:44 PM [facility] Potassium Add-on cannot be performed, specimen stability . 3.4 - 5.3 mmol/L 10/21/2025 1:44 PM [facility] Chloride Add-on cannot be performed, specimen stability . 98 - 107 mmol/L 10/21/2025 1:44 PM [facility] CO2 Add-on cannot be performed, specimen stability . 22 - 33 mmol/L 10/21/2025 1:44 PM [facility] Calcium 9.6 8.7 - 10.5 mg/dL 10/21/2025 2:01 PM [facility] BUN/Creatinine Ratio 13 10.0 - 25.0 Ratio 10/21/2025 2:01 PM [facility] 10/21/2025 7:40 AM EST 10/21/2025 8:08 AM EST Lisy Neumann MD LAB BLOOD ORDERABLES Final Result Performing Organization Address [facility] [place] [address], [place] [address] * B-Hydroxybutyrate (10/20/2025 10:25 PM EST) Only the most recent of2 resultswithin the time period is included. B-Hydroxybutyrate <0.05 <0.28 mmol/L 10/20/2025 11:42 PM [facility] Comment: In the presence of uncontrolled [...] BLOOD ORDERABLES Final Result Performing Organization Address [facility] [place] [address], [place] [address] * (ABNORMAL) Complete Blood Count, with Differential (10/20/2025 10:25 PM EST) Only the most recent of3 resultswithin the time period is included. White Blood Cell Count 5.7 4.0 - 11.0 Thou/uL 10/20/2025 11:27 PM [facility] Platelet Count 181 150 - 450 Thou/uL 10/20/2025 11:27 PM [facility] Hemoglobin 11.7 11.7 - 15.7 g/dL 10/20/2025 11:27 PM [facility] Hematocrit 35.0 35.0 - 47.0 % 10/20/2025 11:27 PM [facility] Red Blood Cell Count 3.98(L) 4.00 - 5.40 Mil/uL 10/20/2025 11:27 PM [facility] MCV 88 80 - 100 fL 10/20/2025 11:27 PM [facility] MCH 29.4 26.0 - 34.0 pg 10/20/2025 11:27 PM [facility] MCHC 33.4 30.0 - 36.0 g/dL 10/20/2025 11:27 PM [facility] RDW 11.9 11.5 - 14.5 % 10/20/2025 11:27 PM [facility] MPV 10.0 7.5 - 12.5 fL 10/20/2025 11:27 PM [facility] Neutrophils Auto 66.2 % 10/20/20 11:27 PM [facility] Immature Granulocytes 0.3 % 10/20/2025 11:27 PM [facility] Lymphocytes Auto 26.4 % 10/20/20 11:27 PM [facility] Monocytes Auto 4.2 % 10/20/2025 11:27 PM [facility] Eosinophils Auto 2.6 % 10/20/20 11:27 PM [facility] Basophils Auto 0.3 % 10/20/2025 11:27 PM [facility] Abs Neutrophils Auto 3.79 2.00 - 7.50 Thou/uL 10/20/2025 11:27 PM [facility] Abs Immature Granulocytes 0.02 0.00 - 0.10 Thou/uL 10/20/2025 11:27 PM [facility] Abs Lymphocytes Auto 1.51 1.50 - 4.50 Thou/uL 10/20/2025 11:27 PM [facility] Abs Monocytes Auto 0.24 0.20 - 1.50 Thou/uL 10/20/2025 11:27 PM [facility] Abs Eosinophils Auto 0.15 0.00 - 0.70 Thou/uL 10/20/2025 11:27 PM [facility] Abs Basophils Auto 0.02 0.00 - 0.20 Thou/uL 10/20/2025 11:27 PM [facility] Blood Blood specimen / Unknown 10/20/2025 10:25 PM EST 10/20/2025 10:55 PM EST Olga Velez APRN LAB BLOOD ORDERABLES Final Result Performing Organization Address City/[facility]/[place] [address], [place] [address] * Osmolality (10/20/2025 10:25 PM EST) Osmolality, Serum/Plasma 293 275 - 295 mOsm/Kg 10/21/2025 1:54 AM [facility] Blood Blood specimen / Unknown 10/20/2025 10:25 PM EST 10/20/2025 10:55 PM EST Olga Velez APRN LAB BLOOD ORDERABLES Final Result Performing Organization Address [facility]/[place] [address], [place] [address] * (ABNORMAL) Comprehensive Metabolic Panel (10/20/2025 10:25 PM EST) Only the most recent of3 resultswithin the time period is included. Glucose 404(HH) 65 - 99 mg/dL 10/20/2025 11:30 PM [facility] Comment:Fasting: <100 mg/dL, Non-Fasting: <200 mg/dL (ADA 2005) Blood Urea Nitrogen (BUN) 6(L) 8 - 21 mg/dL 10/20/2025 11:30 PM [facility] Creatinine 0.40 0.40 - 1.10 mg/dL 10/20/2025 11:30 PM [facility] eGFR >90 >59 10/20/2025 11:30 PM [facility] Comment:CKD-EPI (2020) in mL /min/1.73 sq meters. Sodium 131(L) 136 - 145 mmol/L 10/20/2025 11:30 PM [facility] Potassium 3.6 3.4 - 5.3 mmol/L 10/20/2025 11:30 PM [facility] Chloride 95(L) 98 - 107 mmol/L 10/20/2025 11:30 PM [facility] CO2 24 22 - 33 mmol/L 10/20/2025 11:30 PM [facility] Calcium 8.7 8.7 - 10.5 mg/dL 10/20/2025 11:30 PM [facility] Alkaline Phosphatase 109 32 - 122 U/L 10/20/2025 11:30 PM [facility] Aspartate Aminotrans (AST) 35 10 - 50 U/L 10/20/2025 11:30 PM [facility] Alanine Aminotrans (ALT) 25 10 - 50 U/L 10/20/2025 11:30 PM [facility] Bilirubin, Total 0.2 0.2 - 1.0 mg/dL 10/20/2025 11:30 PM [facility] Protein, Total 6.3 6.3 - 8.3 g/dL 10/20/2025 11:30 PM [facility] Albumin 3.9 3.5 - 5.0 g/dL 10/20/2025 11:30 PM [facility] BUN/Creatinine Ratio 15 10.0 - 25.0 Ratio 10/20/2025 11:30 PM [facility] Globulin 2.4 1.5 - 3.9 g/dL 10/20/2025 11:30 PM [facility] Albumin/Globulin Ratio 1.6 1.0 - 3.0 Ratio 10/20/2025 11:30 PM [facility] Anion Gap 12 7 - 17 10/20/2025 11:30 PM [facility] Blood Blood specimen / Unknown 10/20/2025 10:25 PM EST 10/20/2025 10:55 PM EST us Olga Velez GERMINATION WORKER LAB BLOOD [place] [address], [place] [address] * EEG AWAKE OR DROWSY (10/20/2025 7:20 PM EST) Narrative [facility] - 10/20/2025 7:20 PM EST Juan Dillon MD 10/21/2025 8:04 AM INPATIENT ADULT ELECTROENCEPHALOGRAM (EEG) REPORT Facility: [facility] Patient and : Ibeth Sommers 1995 [...] :qz![id number]; No events :qz!08; Complexity ratin :qz!15 [id number] Brief ictal rhythmic discharges (BIRDs) NO 0 Lateralized periodic discharges (LPDs) OR lateralized rhythmic delta activity (LRDA) OR bilateral independent periodic discharges NO 0 Prior seizure NO 0 Sporadic epileptiform discharges NO 0 Frequency greater than 2 Hz for any periodic or rhythmic pattern NO 0 Presence of PLUS features (superimposed, rhythmic, sharp, or faster activity) NO 0 [id number] TOTAL SCORE: 0 (5% SZ [![id number]]) E.E.G. [...] clinical diagnosis of seizures. Juan Dillon MD. [facility] us Jerry Lopez MD NEUROLOGY ORDERABLES Ko vijay Result - Final [facility] [address] [id number], [place] * US Abdomen-Limited (10/20/2025 4:15 PM EST) [...] recommended for definitive characterization. Juan Mayorga MD [facility] ORDERABLES Final Result * Ammonia Level (10/20/2025 4:59 AM EST) Ammonia, Plasma 43 11 - 51 umol/L 10/20/2025 5:30 AM EST [facility] Blood Blood specimen / Unknown 10/20/2025 4:59 AM EST 10/20/2025 5:02 AM EST Jerry Lopez MD LAB BLOOD ORDERABLES Fin al Result [address] [address], [place] [address] * (ABNORMAL) Beta-hCG, Qualitative, Reflex Quant (10/20/2025 1:00 AM EST) Beta-hCG, Qualitative Positive( A) Negative 10/20/2025 2:18 AM [facility] 10/20/2025 1:00 AM EST 10/20/2025 1:47 AM EST Juan Mayorga MD LAB BLOOD ORDERABLES Final Res ult Performing Organization Address City/[facility]/[place] [address], [place] [address] * (ABNORMAL) LIPASE (10/20/2025 1:00 AM EST) Lipase 8(L) 13 - 60 U/L 10/20/2025 2:18 AM EST [facility] 10/20/2025 1:00 AM EST 10/20/2025 1:47 AM EST us Juan Mayorga MD LAB BLOOD ORDERABLES Final Res ult Performing Organization Address City/[facility] [place] [address], [place] [address] from Last 3 Months Advance Directives * Full Code (Latest Code Status on File) Date Activated Date Inactivated Comments 10/21/2025 5:25 PM * Full Code Date Activated Date Inactivated Comments 10/19/2025 9:11 PM 10/21/2025 5:25 PM Healthcare Agents on File Name Relationship Healthcare Agent Relationshi p Communication Juan Antonio Watt Parent 4. Next of Kin (Spouse, Adult Child, Parent, Adult Sibling, Grandparent)
--- OUTSIDE RECORDS SUMMARY | 2025-10-23 12:28 | XMS_ITS | Encounter Summary ---
Author Organization [employer] Address [address] [facility] [address]t [place] [address] Care Team Providers Care Field Operations Farm Manager Name Role Phone Hernanmarisol Edyta Unavailable Unavailable Fermin Scherer Unavailable Unavailable Encounter Details Date Type Department Care Team (Late st Contact Info) Description 10/20/[address] [facility] [address] [place] [address] Fermin Scherer Social History Tobacco Use Types Packs/Day Years Used Date Smoking Tobacco: Never Assessed Comments Unknown Sex and Gender Information Value Date Recorded Sex Assigned at Not on file Legal Sex Female 9:28 PM EDT Gender Identity Not on file Sexual Orientation Not on file documented as of this encounter Progress Notes * Fermin Scherer - 10/20/2025 2:02 PM EST Called this patient as the first outreach and enrollment call to enroll in the care management program. This patient didn't answer the calls twice and left the message to call back at [phone] extension [phone]. Will call again on 11/01/2025. documented in this encounter Plan of Treatment Not on file documented as of this encounter Visit Diagnoses Not on filedocumented in this encounter Care Teams Field Operations Farm Manager Relationship Specialty Start Date End Date HernanLiyah damonzohaib 10/20/25 Fermin Scherer 10/20/25 documented as of this encounter
--- OUTSIDE RECORDS SUMMARY | 2025-10-23 12:28 | XMS_ITS | Clinical Summary ---
Author Organization [employer] Address [address] [facility] 7t [place] [address] Care Team Providers Care Director Of Government Sales Name Role Phone Edyta Lopez Unavailable Unavailable Fermin Scherer Unavailable Unavailable Encounters Date Type Department Care Team Description 10/20/2025 Patient Outreach [facility] [address] [phone] Fermin Scherer 10/20/2025 Patient Outreach [address] [phone] Edyta Lopez 10/20/2025 Patient Outreach [address] [phone] Rosemary Lam 10/20/2025 Patient Outreach [address] [phone] Rosemary Lam from Last 3 Months Social History Tobacco [...] 3-dose series) 2010 Hepatitis C Screening 2013 Hepatitis A Vaccines (1 of 2 - Risk 2-dose series) 2014 Hepatitis B Vaccines (1 of 3 - 19+ 3-dose series) 2014 Pneumococcal Vaccine: Pediat rics (0 to 5 Years) and At-Risk Patients (6 to 49) Years (1 of 2 - PCV) 2014 Pap Smear 2016 COVID-19 Vaccine (1 - 2024-2 6 season) 2025 Influenza Vaccine (#1) 2025 12/01/2021 DTaP/Tdap/Td Vaccines (2 - T d or Tdap) 01/31/2030 02/01/2020 Zoster Vaccines (1 of 2) 2045 RSV [...] on patient's age to complete this topic Care Teams Director Of Government Sales Relationship Specialty Start Date End Date Edyta Lopez 10/20/25 Fermin Scherer 10/20/25
--- OUTSIDE RECORDS SUMMARY | 2025-10-23 12:28 | XMS_ITS | Encounter Summary ---
Author Organization [employer] Address [address] [facility] [address] [place] [address] Care Team Providers Care Second Miller Name Role Phone Edyta Lopez Unavailable Unavailable Fermin Scherer Unavailable Unavailable Encounter Details Date Type Department Care Team (Late st Contact Info) Description 10/20/2025 Patient Outreach [facility] [address] [place] [phone] Edyta Lopez Social History Tobacco Use Types Packs/Day Years Used Date Smoking Tobacco: Never Assessed Comments Unknown Sex and Gender Information Value Date Recorded Sex Assigned at Not on file Legal Sex Female 9:28 PM EDT Gender Identity Not on file Sexual Orientation Not on file documented as of this encounter Progress Notes * Edyta Lopez - 10/20/2025 1:56 PM EST Patient chart reviewed for care management. * Edyta Lopez - 10/20/2025 1:56 PM EST Called patient for care management services,unable to reach. Will follow up at a later date. documented in this encounter Plan of Treatment Not on file documented as of this encounter Visit Diagnoses Not on filedocumented in this encounter Care Teams Second Miller Relationship Specialty Start Date End Date Edyta Lopez 10/20/25 Fermin Scherer 10/20/25 documented as of this encounter
--- OUTSIDE RECORDS SUMMARY | 2025-10-23 12:28 | XMS_ITS ---
Author Organization [facility] Address [address] [facility] [address] [place] [address] Care Team Providers Care Production Dispatcher Name Role Phone Edyta Lopez Unavailable Unavailable Fermin Scherer Unavailable Unavailable CM Complex Status:Outreach In Progress (Enrolling) Start date:10/21/2025 Enrollment reason:ADT Feed Case Team Name Relationship Phone Edyta Lopez(Responsible Staff) Continued Care and Services Coordination
--- OUTSIDE RECORDS SUMMARY | 2025-10-23 12:28 | XMS_ITS ---
Author Organization [employer] Address [address] [facility] [address] [place] [address] Care Team Providers Care Scouring Train Operator Name Role Phone Edyta Lopez Unavailable Unavailable Fermin Scherer Unavailable Unavailable [facility] Complex Status:Outreach In Progress (Enrolling) Start date:10/21/2025 Enrollment reason:ADT Feed Case Team Name Relationship Phone Fermin Scherer(Responsible Staff) Continued Care and Services Coordination
--- OUTSIDE RECORDS SUMMARY | 2025-10-23 12:28 | XMS_ITS ---
Author Name [facility] Organization Unknown Results Test Name/Text Value Interpretation Date Range Source POC Glucose 247.0 mg/dL Above high normal 10/22/2025 65 - 99 [facility] POC Glucose 217.0 mg/dL Above high normal 10/22/2025 65 - 99 [facility] Hgb A1c MFr Bld 9.5 % Above high normal 10/22/2025 - 5.7 HHCCT Est. average glucose Bld gHb Est-mCnc 226.0 mg/dL 10/22/2025 H[facility]CT Hgb Bld-mCnc 11.5 g/dL Below low normal 10/22/2025 11.7 - 15 .7 H[facility]CT MCV RBC Auto 89.0 fL 10/22/2025 80 - 100 H[facility]CT WBC num Bld Auto 5.5 Thou/uL 10/22/2025 4 - 11 H[facility]CT RDW RBC Auto-Rto 11.9 % 10/22/2025 11.5 - 14.5 H[facility]CT Platelet num Bld Auto 136.0 Thou/uL Below low normal 10/22/2025 150 - 450 H[facility]CT MCH RBC Qn Auto 30.5 pg 10/22/2025 26 - [address] Hct VFr Bld Auto 33.7 % Below low normal 10/22/2025 35 - 47 HHCCT MCHC RBC Auto-mCnc 34.1 g/dL 10/22/2025 30 - 36 HHCCT RBC num Bld Auto 3.77 Mil/uL Below low normal 10/22/2025 4 - 5.4 HHCCT PMV Bld Auto 10.7 fL 10/22/2025 7.5 - 12.5 HHCCT POC Glucose 305.0 mg/dL Above high normal 10/22/2025 65 - 99 H[facility]CT POC Glucose 263.0 mg/dL Above high normal 10/22/2025 65 - 99 H[facility]CT POC Glucose 310.0 mg/dL Above high normal 10/22/2025 65 - 99 H[facility]CT POC Glucose 229.0 mg/dL Above high normal 10/21/2025 65 - 99 H[facility]CT POC Glucose 249.0 mg/dL Above high normal 10/21/2025 65 - 99 HHCCT ISTAT Glucose 245.0 mg/dL Above high normal 10/21/2025 65 - 99 H[facility]CT POC Glucose 233.0 mg/dL Above high normal 10/21/2025 65 - 99 HHCCT POC Glucose 226.0 mg/dL Above high normal 10/21/2025 65 - 99 HHCCT GFR/BSA.pred SerPlBld VYP-AFD-[id number] >90.0 10/21/2025 59 - HHCCT Calcium SerPl-mCnc 9.6 mg/dL 10/21/2025 8.7 - 10.5 HHCCT Creat SerPl-mCnc 0.47 mg/dL 10/21/2025 0.4 - 1.1 H HCCT BUN/Creat SerPl 13.0 Ratio 10/21/2025 10 - 25 HH CCT BUN SerPl-mCnc 6.0 mg/dL Below low normal 10/21/2025 8 - 21 HHCCT Potassium SerPl-sCnc Add-on cannot be performed, specimen stability . 10/21/2025 3.4 - 5.3 HHCCT Glucose SerPl-mCnc Add-on cannot be performed, specimen stability . 10/21/2025 65 - 99 HHCCT CO2 SerPl-sCnc Add-on cannot be performed, specimen stability . 10/21/2025 22 - 33 HHCCT Chloride SerPl-sCnc Add-on cannot be performed, specimen stability . 10/21/2025 98 - 107 HHCCT Sodium SerPl-sCnc Add-on cannot be performed, specimen stability . 10/21/2025 136 - 145 HHCCT B-HCG SerPl-aCnc 159.0 mIU/mL Above high normal 10/21/2025 - 5 HHCCT POC Glucose 124.0 mg/dL Above high normal 10/21/2025 65 - 99 HHCCT POC Glucose 254.0 mg/dL Above high normal 10/21/2025 65 - 99 HHCCT Osmolality SerPl 293.0 mOsm/Kg 10/21/2025 275 - 29 5 HHCCT B-OH-Butyr SerPl-sCnc <0.05 mmol/L 10/21/2025 - 0.28 HHCCT ALP SerPl-cCnc 109.0 U/L 10/21/2025 32 - 122 HHCC T Potassium SerPl-sCnc 3.6 mmol/L 10/21/2025 3.4 - 5 .3 HHCCT Prot SerPl-mCnc 6.3 g/dL 10/21/2025 6.3 - 8.[address] CO2 SerPl-sCnc 24.0 mmol/L 10/21/2025 22 - 33 HH CCT Creat SerPl-mCnc 0.4 mg/dL 10/21/2025 0.4 - 1.1 HH CCT Chloride SerPl-sCnc 95.0 mmol/L Below low normal 10/21/2025 98 - 107 HHCCT Sodium SerPl-sCnc 131.0 mmol/L Below low normal 10/21/2025 1 36 - 145 HHCCT ALT SerPl-cCnc 25.0 U/L 10/21/2025 10 - 50 HHCC T AST SerPl-cCnc 35.0 U/L 10/21/2025 10 - 50 HH[facility] T Albumin/Glob SerPl 1.6 Ratio 10/21/2025 1 - 3 HHCCT Globulin Ser Calc-mCnc 2.4 g/dL 10/21/2025 1.5 - 3.9 HHCCT Glucose SerPl-mCnc 404.0 mg/dL Critically high 10/21/2025 65 - 99 HHCCT Calcium SerPl-mCnc 8.7 mg/dL 10/21/2025 8.7 - 10.5 HHCCT Anion Gap Bld-sCnc 12.0 10/21/2025 7 - 17 HHCCT Bilirub SerPl-mCnc 0.2 mg/dL 10/21/2025 0.2 - 1 HHCCT BUN/Creat SerPl 15.0 Ratio 10/21/2025 10 - 25 HH CCT GFR/BSA.pred SerPlBld CSP-UJU-PkWKyg >90.0 10/21/2025 59 - HHCCT Albumin SerPl-mCnc 3.9 g/dL 10/21/2025 3.5 - 5 HHCCT BUN SerPl-mCnc 6.0 mg/dL Below low normal 10/21/2025 8 - 21 HHCCT Lymphocytes/leuk NFr Bld Auto 26.4 % 10/21/2025 HHCCT MCH RBC Qn Auto 29.4 pg 10/21/2025 26 - [address] MCV RBC Auto 88.0 fL 10/21/2025 80 - 100 HHCCT Platelet num Bld Auto 181.0 Thou/uL 10/21/2025 150 - 450 HHCCT Basophils/leuk NFr Bld Auto 0.3 % 10/21/2025 HHCCT Eosinophil/leuk NFr Bld Auto 2.6 % 10/21/2025 HHCCT Hct VFr Bld Auto 35.0 % 10/21/2025 35 - 47 HH CCT Imm Granulocytes/leuk NFr Bld Auto 0.3 % 10/21/2025 HHCCT RDW RBC Auto-Rto 11.9 % 10/21/2025 11.5 - 14.5 HHCCT Lymphocytes num Bld Auto 1.51 Thou/uL 10/21/2025 1.5 - 4.5 HHCCT Monocytes/leuk NFr Bld Auto 4.2 % 10/21/2025 HHCCT Imm Granulocytes num Bld Auto 0.02 Thou/uL 10/21/2025 0 - 0.1 HHCCT Eosinophil num Bld Auto 0.15 Thou/uL 10/21/2025 0 - 0.7 HHCCT Monocytes num Bld Auto 0.24 Thou/uL 10/21/2025 0.2 - 1.5 HHCCT Hgb Bld-mCnc 11.7 g/dL 10/21/2025 11.7 - 15.7 HHCC T MCHC RBC Auto-mCnc 33.4 g/dL 10/21/2025 30 - 36 HHCCT Neutrophils/leuk NFr Bld Auto 66.2 % 10/21/2025 HHCCT Neutrophils num Bld Auto 3.79 Thou/uL 10/21/2025 2 - 7.5 HHCCT WBC num Bld Auto 5.7 Thou/uL 10/21/2025 4 - 11 HHCCT PMV Bld Auto 10.0 fL 10/21/2025 7.5 - 12.5 HHCCT Basophils num Bld Auto 0.02 Thou/uL 10/21/2025 0 - 0.2 HHCCT RBC num Bld Auto 3.98 Mil/uL Below low normal 10/21/2025 4 - 5.4 HHCCT POC Glucose 460.0 mg/dL Above high normal 10/21/2025 65 - 99 HHCCT POC Glucose >500.0 mg/dL Above high normal 10/21/2025 65 - 9 9 HHCCT POC Glucose 149.0 mg/dL Above high normal 10/20/2025 65 - 99 HHCCT POC Glucose 182.0 mg/dL Above high normal 10/20/2025 65 - 99 HHCCT POC Glucose 140.0 mg/dL Above high normal 10/20/2025 65 - 99 HHCCT Albumin SerPl-mCnc 3.3 g/dL Below low normal 10/20/2025 3.5 - 5 HHCCT Glucose SerPl-mCnc 140.0 mg/dL Above high normal 10/20/2025 65 - 99 HHCCT BUN/Creat SerPl 16.0 Ratio 10/20/2025 10 - 25 HH CCT AST SerPl-cCnc 39.0 U/L 10/20/2025 10 - 50 HHCC T Albumin/Glob SerPl 1.3 Ratio 10/20/2025 1 - 3 HHCCT Chloride SerPl-sCnc 102.0 mmol/L 10/20/2025 98 - 1 07 HHCCT Globulin Ser Calc-mCnc 2.5 g/dL 10/20/2025 1.5 - 3.9 HHCCT Sodium SerPl-sCnc 136.0 mmol/L 10/20/2025 136 - 14 5 HHCCT Bilirub SerPl-mCnc 0.4 mg/dL 10/20/2025 0.2 - 1 HHCCT Creat SerPl-mCnc 0.44 mg/dL 10/20/2025 0.4 - 1.1 H HCCT GFR/BSA.pred SerPlBld NTA-JQB-VmQGaf >90.0 10/20/2025 59 - HHCCT Prot SerPl-mCnc 5.8 g/dL Below low normal 10/20/2025 6.3 - 8.3 HHCCT CO2 SerPl-sCnc 25.0 mmol/L 10/20/2025 22 - 33 HH CCT BUN SerPl-mCnc 7.0 mg/dL Below low normal 10/20/2025 8 - 21 HHCCT Potassium SerPl-sCnc 3.3 mmol/L Below low normal 10/20/2025 3.4 - 5.3 HHCCT ALP SerPl-cCnc 92.0 U/L 10/20/2025 32 - 122 HHCC T Calcium SerPl-mCnc 8.5 mg/dL Below low normal 10/20/2025 8.7 - 10.5 HHCCT Anion Gap Bld-sCnc 9.0 10/20/2025 7 - 17 HHCCT ALT SerPl-cCnc 20.0 U/L 10/20/2025 10 - 50 HHCC T Ammonia Plas-sCnc 43.0 umol/L 10/20/2025 11 - 51 HHCCT MCHC RBC Auto-mCnc 34.2 g/dL 10/20/2025 30 - 36 HHCCT MCH RBC Qn Auto 29.8 pg 10/20/2025 26 - [address] Basophils/leuk NFr Bld Auto 0.4 % 10/20/2025 HHCCT Neutrophils/leuk NFr Bld Auto 41.7 % 10/20/2025 HHCCT PMV Bld Auto 9.4 fL 10/20/2025 7.5 - 12.5 HHCCT Basophils num Bld Auto 0.02 Thou/uL 10/20/2025 0 - 0.2 HHCCT Hgb Bld-mCnc 11.4 g/dL Below low normal 10/20/2025 11.7 - 15 .7 HHCCT Hct VFr Bld Auto 33.3 % Below low normal 10/20/2025 35 - 47 HHCCT RDW RBC Auto-Rto 11.9 % 10/20/2025 11.5 - 14.5 HHCCT Neutrophils num Bld Auto 2.35 Thou/uL 10/20/2025 2 - 7.5 HHCCT MCV RBC Auto 87.0 fL 10/20/2025 80 - 100 HHCCT Lymphocytes num Bld Auto 2.8 Thou/uL 10/20/2025 1.5 - 4.5 HHCCT Imm Granulocytes num Bld Auto 0.01 Thou/uL 10/20/2025 0 - 0.1 HHCCT RBC num Bld Auto 3.83 Mil/uL Below low normal 10/20/2025 4 - 5.4 HHCCT Eosinophil num Bld Auto 0.17 Thou/uL 10/20/2025 0 - 0.7 HHCCT WBC num Bld Auto 5.6 Thou/uL 10/20/2025 4 - 11 HHCCT Eosinophil/leuk NFr Bld Auto 3.0 % 10/20/2025 HHCCT Imm Granulocytes/leuk NFr Bld Auto 0.2 % 10/20/2025 HHCCT Monocytes num Bld Auto 0.28 Thou/uL 10/20/2025 0.2 - 1.5 HHCCT Platelet num Bld Auto 170.0 Thou/uL 10/20/2025 150 - 450 HHCCT Lymphocytes/leuk NFr Bld Auto 49.7 % 10/20/2025 HHCCT Monocytes/leuk NFr Bld Auto 5.0 % 10/20/2025 HHCCT POC Glucose 137.0 mg/dL Above high normal 10/20/2025 65 - 99 HHCCT POC Glucose 180.0 mg/dL Above high normal 10/20/2025 65 - 99 HHCCT AST SerPl-cCnc 50.0 U/L 10/20/2025 10 - 50 HHCC T Creat SerPl-mCnc 0.38 mg/dL Below low normal 10/20/2025 0.4 - 1.1 HHCCT BUN/Creat SerPl 18.0 Ratio 10/20/2025 10 - 25 HH CCT CO2 SerPl-sCnc 25.0 mmol/L 10/20/2025 22 - 33 HH CCT Albumin SerPl-mCnc 3.6 g/dL 10/20/2025 3.5 - 5 HHCCT Globulin Ser Calc-mCnc 2.8 g/dL 10/20/2025 1.5 - 3.9 HHCCT Potassium SerPl-sCnc 3.2 mmol/L Below low normal 10/20/2025 3.4 - 5.3 HHCCT Calcium SerPl-mCnc 8.6 mg/dL Below low normal 10/20/2025 8.7 - 10.5 HHCCT Prot SerPl-mCnc 6.4 g/dL 10/20/2025 6.3 - 8.[address] Albumin/Glob SerPl 1.3 Ratio 10/20/2025 1 - 3 HHCCT Anion Gap Bld-sCnc 9.0 10/20/2025 7 - 17 HHCCT ALP SerPl-cCnc 97.0 U/L 10/20/2025 32 - 122 HHCC T Chloride SerPl-sCnc 99.0 mmol/L 10/20/2025 98 - 10 7 HHCCT Glucose SerPl-mCnc 165.0 mg/dL Above high normal 10/20/2025 65 - 99 HHCCT ALT SerPl-cCnc 23.0 U/L 10/20/2025 10 - 50 HHCC T BUN SerPl-mCnc 7.0 mg/dL Below low normal 10/20/2025 8 - 21 HHCCT Bilirub SerPl-mCnc 0.4 mg/dL 10/20/2025 0.2 - 1 HHCCT Sodium SerPl-sCnc 133.0 mmol/L Below low normal 10/20/2025 1 36 - 145 HHCCT GFR/BSA.pred SerPlBld RNH-LCY-LsJQdu >90.0 10/20/2025 59 - HHCCT B-HCG Preg SerPl Ql Positive Abnormal 10/20/2025 - HHCCT B-OH-Butyr SerPl-sCnc 0.06 mmol/L 10/20/2025 - 0.28 HHCCT Lipase SerPl-cCnc 8.0 U/L Below low normal 10/20/2025 13 - 60 HHCCT Eosinophil/leuk NFr Bld Auto 2.5 % 10/20/2025 HHCCT Lymphocytes num Bld Auto 2.17 Thou/uL 10/20/2025 1.5 - 4.5 HHCCT Lymphocytes/leuk NFr Bld Auto 36.5 % 10/20/2025 HHCCT Basophils/leuk NFr Bld Auto 0.5 % 10/20/2025 HHCCT PMV Bld Auto 9.5 fL 10/20/2025 7.5 - 12.5 HHCCT MCHC RBC Auto-mCnc 34.0 g/dL 10/20/2025 30 - 36 HHCCT Basophils num Bld Auto 0.03 Thou/uL 10/20/2025 0 - 0.2 HHCCT Neutrophils num Bld Auto 3.24 Thou/uL 10/20/2025 2 - 7.5 HHCCT Hct VFr Bld Auto 32.4 % Below low normal 10/20/2025 35 - 47 HHCCT Eosinophil num Bld Auto 0.15 Thou/uL 10/20/2025 0 - 0.7 HHCCT MCV RBC Auto 88.0 fL 10/20/2025 80 - 100 HHCCT Hgb Bld-mCnc 11.0 g/dL Below low normal 10/20/2025 11.7 - 15 .7 HHCCT Platelet num Bld Auto 156.0 Thou/uL 10/20/2025 150 - 450 HHCCT RBC num Bld Auto 3.67 Mil/uL Below low normal 10/20/2025 4 - 5.4 HHCCT Imm Granulocytes num Bld Auto 0.01 Thou/uL 10/20/2025 0 - 0.1 HHCCT MCH RBC Qn Auto 30.0 pg 10/20/2025 26 - [address] RDW RBC Auto-Rto 11.9 % 10/20/2025 11.5 - 14.5 HHCCT Neutrophils/leuk NFr Bld Auto 54.6 % 10/20/2025 HHCCT Monocytes num Bld Auto 0.34 Thou/uL 10/20/2025 0.2 - 1.5 HHCCT WBC num Bld Auto 5.9 Thou/uL 10/20/2025 4 - 11 HHCCT Imm Granulocytes/leuk NFr Bld Auto 0.2 % 10/20/2025 HHCCT Monocytes/leuk NFr Bld Auto 5.7 % 10/20/2025 HHCCT POC Glucose 166.0 mg/dL Above high normal 10/20/2025 65 - 99 HHCCT POC Glucose 155.0 mg/dL Above high normal 10/20/2025 65 - 99 HHCCT Encounters Encounter Type Encounter Reason Primary Diagnosis Location Date Inpatient Other ectopic without intrauterine Other ectopic without intrauterine [place] 10/19/2025 Care Team Organization Name Specialty Phone Email Start Date End [facility] [place] 10/20/2025 [facility] 10/19/2025
[2025-10-23 12:33] LABS: MANUAL DIFF FLAG NO
[2025-10-23 12:34] LABS: Hematocrit 33.9 % (37.0-47.0); Hemoglobin 11.9 g/dl (12.0-16.0); Imm Gran Abs Auto 0.02 X10*3/uL (0.00-0.03); Imm Gran Pct Auto 0.3 % (0.0-0.4); Lymphocytes Absolute Auto 2.1 X10*3/uL (1.2-4.9); Mean Corpuscular HGB Conc 35.1 g/dl (31.0-35.0); Mean Corpuscular Hemoglobin 30.4 pg (27.0-33.0); Mean Corpuscular Volume 86.7 fL (80.0-98.0); NRBC Abs Auto 0.000 X10*3/uL (0.0-0.012); NRBC Pct Auto 0.0 /100WBC (0.0-0.2); Platelet Count 260 X10*3/uL (160-400); Red Blood Count 3.91 X10*6/uL (4.20-5.50); White Blood Count 7.2 X10*3/uL (4.8-10.8)
--- NOTE | 2025-10-23 12:48 | PC.NURSE ---
Pt more awake than on arrival, insisting to use bathroom vs be so. This RN and another nurse assited pt to commode. UA/WRIGHT collected. Pt states unknown gestational age of current , . Unknown recent surgical procedure. Endorsing abd pain, unable to provide detail. Requesting Diluadid for pain and to go home.
[2025-10-23 12:52] LABS: Appearance Urine Clear; Glucose Urine UA >=1000 mg/dL (Negative); PH 7.5 (5.0-9.0); Specific Gravity - Urine 1.010 (1.005-1.025); UMIC TRIGGER UACC YES
[2025-10-23 12:52] LABS: Alanine Aminotransferase 26 U/L (0-31); Albumin Level 4.5 g/dL (3.5-5.0); Alkaline Phosphatase 105 U/L (39-117); Anion Gap 20 (12-20); Aspartate Amino Transferase 35 U/L (5-31); Blood Urea Nitrogen 4 mg/dL (9-16); Calcium 8.8 mg/dL (8.4-10.2); Carbon Dioxide 21 mmol/L (22-29); Chloride 102 mmol/L (96-108); Creatinine Clr Calc Pharmacy 135.7; Estimated Glomerular Filt Rate > 60; Lipase 8 U/L (8-78); Magnesium 1.9 mg/dL (1.6-2.6); Potassium 3.7 mmol/L (3.3-5.1); Sodium 139 mmol/L (135-145); Total Protein 7.7 g/dL (6.5-8.0)
[2025-10-23 13:01] LABS: Cannabinoid Screen Urine Not Detected (Not Detect)
--- NOTE | 2025-10-23 13:01 | PC.NURSE ---
Pt yelling, attempting to rip out IV and cardiac leads off. Attempting get out of bed, needing frequent redirection
[2025-10-23 13:18] LABS: Resp Syncy Virus RNA Qual PCR NEGATIVE (Negative); SARS COV2 PCR INHOUSE NEGATIVE (Negative)
[2025-10-23 13:43] LABS: Free T4 (Free Thyroxine) 1.33 ng/dL (0.71-1.85)
--- NOTE | 2025-10-23 13:49 | PC.NURSE ---
Alerted by [employer] that was on floor next to bed, unwitnessed. Concern pt flipped over rail of stretcher, sitting up on side of bed. Pt ripped out US guided line to left bicep, blood to gown and on floor. Pt assisted back to bed. Vitals 124/80, 98 bpm, 100 % room air. MD aware and charge aware.
[2025-10-23 14:33] LABS: Reflex Lactate? Lactic Acid Added
--- NOTE | 2025-10-23 14:49 | PC.NURSE ---
Timeline post fall- 1349: Alerted to fall of patient; patient found sitting up on floor next to stretcher. This RN remained with patient. Vitals stable. MD and Charge aware of incident 1355: air pollution control engineer and this RN moved patient to room 22 in better view of nurses station. Yao, airframe and powerplant technician to be sitter with patient. Pt remains attempting to get out of bed, yelling stating she is leaving. Pt needing constant redirection, pt remains yelling and pulling at radiation monitor cords. MD aware. 1410: Pt medicated per MAR with IM Haldol, Benedryl and Versed. 1415: Pt more calm and willing to let ED staff place her back on cardiac monitoring. Sitter remains in place at this time. Pt sleeping, breathing equal and unlabored. VSS.
--- NOTE | 2025-10-23 15:00 | MHC.RECOVRN ---
Pt not appropriate to be seen at this time due to lethargy and recent IM restraint.
[2025-10-23 15:18] LABS: ~Lactic Acid-LAB USE ONLY 3.6 mmol/L (0.5-2.0)
--- NOTE | 2025-10-23 16:33 | PC.NURSE ---
Pt sleeping at this time, breathing equal and unlabored. Vitals stable, remain on full teletypewriter operator. Sitter at bedside
[2025-10-23 17:00] LABS: Reflex Lactate? 2 Y
[2025-10-23 18:26] LABS: ~Lactic Acid-LAB USE ONLY 2.0 mmol/L (0.5-2.0)
--- NOTE | 2025-10-23 19:16 | PC.NURSE ---
PO Valium not given as ordered per MD, pt remains sleeping. Breathing equal and unlabored. Not needed at this time.
[2025-10-23] MEDS: oxyCODONE HCl Immed Release 5 MG TABLET 2.5 MG PO (21:20)
[2025-10-24 17:22] LABS: Glucose, Whole Blood 357 mg/dL (60-115)
== END 2025-10-23 22:55 | disposition home or self-care (01) ==
PROVIDERS: Emergency Provider Emergency Medicine Emergency Medical Services; PCP Dentist General Practice
DX: F10.129 Alcohol abuse with intoxication, unspecified (principal); Y90.8 Blood alcohol level of 240 mg/100 ml or more; R11.2 Nausea with vomiting, unspecified; R00.0 Tachycardia, unspecified; D64.9 Anemia, unspecified; R45.1 Restlessness and agitation; E11.9 Type 2 diabetes mellitus without complications; F17.210 Nicotine dependence, cigarettes, uncomplicated; I10 Essential (primary) hypertension; Z03.818 Encounter for observation for suspected exposure to other biological agents ruled out; Z51.81 Encounter for therapeutic drug level monitoring; Z79.899 Other long term (current) drug therapy; Z79.4 Long term (current) use of insulin
CPT/HCPCS: 36415; 80053; 80307; 81001; 82947; 83605; 83690; 83735; 84439; 84443; 84702; 85025; 87040; 87637; 93005; 96361; 96372; 96374; 99285; J1200; J1630; J2250

== ENCOUNTER → 2025-10-23 12:21 | Outpatient (BNV) | payer MEDICAID, SELFPAY | PROVIDERS: Emergency Provider Emergency Medicine Emergency Medical Services; PCP Dentist General Practice; Visit Provider Internal Medicine Cardiovascular Disease | DX: R00.0 Tachycardia, unspecified (principal) | CPT/HCPCS: 93010 ==